=== PATIENT | male | born 1950 | race Caucasian/White ===

== ENCOUNTER 2023-08-10 12:52 | Outpatient (OUT) | payer MEDICARE, MEDICAID, SELFPAY ==
--- NOTE | 2023-08-10 | ECG_ITS ---
[facility] Test Date: 2023-08-10 Pat Name: JAHAIRA ESCAMILLA Department: Room: - Gender: Male [employer]: : 1950 Requested By: ALIZA CHOPRA Order Number: [id number] Reading MD: LAYLA OTTO Measurements Intervals [place] Rate: 68 P: 15 MA: 195 QRS: 52 QRSD: 90 T: 51 QT: 351 QTc: 376 Interpretive Statements SINUS RHYTHM No previous ECG available for comparison Electronically Signed On 08-12-2023 8:05:46 EDT by LAYLA OTTO
--- NOTE | 2023-08-10 13:00 | CA_ITS ---
Patient Name: JAHAIRA ESCAMILLA MR#: [id number] : 1950 Exam Date: 08/10/2023 Ordering Doctor: DR ALIZA CHOPRA D.O. ECHOCARDIOGRAM REPORT PROCEDURE: CA ECHO DOPPLER COMPLETE INDICATIONS: Hypertension, diabetes COMPARISON: None. DESCRIPTION: COMPLETE ECHOCARDIOGRAM Real-time transthoracic echocardiography with 2D, M-mode, spectral and color flow Doppler performed. QUALITY: Technically difficult due to patients condition. LEFT VENTRICLE: Normal chamber size. Mild concentric left ventricular hypertrophy. LV EF: Global left ventricular systolic function is difficult to assess but appears preserved; visually estimated ejection fraction is 55 to 60%. Unable to assess regional wall motion abnormalities. DIASTOLIC: Unable to assess diastolic function. ATRIAL SEPTUM: Inadequately seen. LEFT ATRIUM: Inadequately seen. RIGHT ATRIUM: Inadequately seen. RIGHT VENTRICLE: Inadequately seen. TRICUSPID VALVE: Not well visualized. MITRAL VALVE: Mildly thickened with normal mobility. Mild mitral annular calcification. AORTIC VALVE: Not well visualized. AORTIC ROOT: Appears enlarged. PULMONIC VALVE: Not well visualized. PERICARDIUM: No evidence of pericardial effusion. IVC: Collapses with inspirations. IVC is normal in size. CONCLUSION: 1. This is a suboptimal echocardiographic examination 2. Global left ventricular systolic function is difficult to assess but appears preserved; visually estimated ejection fraction is 55 to 60% Recommend contrast study for better delineation of endocardial borders or other imaging modality as clinically appropriate Adult Echocardiography Procedure Report Left Ventricle LVEDD (3.7 - 5.6 cm): 4.45 cm LVESD (2.2 - 4.0 cm): 2.65 cm LVIVS thickness (0.6 - 1.2 cm): 1.18 cm LVPW thickness (0.5 - 1.0 cm): 1.20 cm LVOT Diameter 2.61 cm Left Atrium Left Atrium Systolic Dimension: 3.70 cm Mitral Valve MV E to A Ratio: 0.57 Mitral Valve A-Wave Peak Velocity: 0.60 m/s Mitral Valve E-Wave Peak Velocity: 0.34 m/s Right Ventricle Aorta AO Root Diam: 4.26 cm Aortic Valve Peak Velocity(Antegrade Flow): 1.15 m/s Peak Gradient(Antegrade Flow): 5.31 mm[Hg] Tricuspid Valve Pulmonic Valve Right Atrium Dictated by: Aneesh Queen M.D. on 08/13/2023 at 15:53 Approved by: Aneesh Queen M.D. on 08/13/2023 at 15:56
== END 2023-08-10 12:53 | disposition home or self-care (01) ==
PROVIDERS: PCP Internal Medicine; Visit Provider Internal Medicine
DX: R06.02 Shortness of breath (principal); I10 Essential (primary) hypertension
CPT/HCPCS: 93005; 93306

== ENCOUNTER 2024-04-09 12:08 | Outpatient (REF) | payer MEDICARE, MEDICAID, SELFPAY ==
--- OUTSIDE RECORDS SUMMARY | 2024-04-09 12:18 | XMS_ITS | CCD ---
Author Organization [facility] [place] Inform ion Partnership [facility] Care Team Providers Care Axle Inspector Name Role Phone Jesus Chopra DO Primary Care Provider MAIN ASCENCIO Attending Unavailable JESUS CHOPRA Primary Care Unavailable MAGDALENO WILSON Admitting Unavailable GEETA COLES Referring Unavailable JESUS POE Consulting Unavailable DIMITRY DICK Consulting Unavailable MILTON JAMES Consulting Unavailable BALAJI ROSS Consulting Unavailable VEGA RYAN Consulting Unavailable LUIS MANUEL BRUMFIELD Consulting Unavailable ALVARO PURCELL Consulting Unavailable SAMY RUSSELL Consulting Unavailable MAGDALENO WILSON Consulting Unavailable NACHO ESPINO Consulting Unavailable HARVEY DOTSON Consulting Unavailable ADRIENNE RAE Consulting Unavailable EDDI MOREAU Consulting Unavaila ble Jesus Chopra DO Primary Care Provider ALEXIS RAMON Attending Unavailable ALEXIS RAMON Admitting Unavailable JESUS CHOPRA Primary Care Unavailable [facility], DR WHITE Attending Unavailable VALONE, DR ABRAMS Primary Care Unavailable [facility] DR WH[facility] Admitting Unavailable MISMalik, DR WHITE Consulting Unavailable HANNAONE, DR ABRAMS Admitting Unavailable VALONE, DR ABRAMS Primary Care Unavailable VALONE, DR ABRAMS Consulting Unavailable KEYSHA, DR ABRAMS Attending Unavailable Dimitry Dick Attending Unavailable Dimitry Dick Admitting Unavailable JESUS CHOPRA JR. Primary Care UnavailELIZABETH Frias Consulting Unavailable NICOLAS CASTORENA Attending Unavailable JESUS CHOPRA JR Primary Care Unavailable JOSEF TAPIA Admitting Unavailable ELIZABETH SIDDIQUI Referring Unavailable ELIZABETH SIDDIQUI Attending Unavailable JESUS CHOPRA JR Primary Care Unavailable Allergies Allergy Classification Reported Allergen(s) Allergy Type Date of Onset Reaction(s) Facility Penicillins (antibiotic) (1 source) Penicillins Drug Allergy 6 [facility] Phone (unformatted) : [phone] Sulfonamides (antibiotic) (1 source) Sulfonamides (Antibiotic) Drug Allergy 1 [facility] Phone: Tetracyclines (antibiotic) (1 source) Oxytetracycline Drug Allergy 6 [facility] Phone: (2 sources) Oxytetracycline; Translations: [OXYTETRACYCLINE] Drug Allergy [facility] Phone: (2 sources) Penicillins; Translations: [PENICILLINS] Propensity to adverse reactions to drug 6 [facility] Phone (unformatted) : [phone] (1 source) Sulfonamides (Antibiotic) Propensity to adverse reactions to drug 1 [facility] Phone: (3 sources) Oxytetracycline; Translations: [Terramycin] Drug Allergy 4 [facility] Repository (1 source) Penicillins Drug allergy (disorder) 4 [facility] Rep[facility] (1 source) Sulfonamides (Antibiotic) Drug allergy (disorder) 4 [facility] Rep[facility] (1 source) Penicillin; Translations: [penicillin] Drug Allergy [facility] Repository (1 source) sulfa topical; Translations: [sulfa topical] Propensity to adverse reactions to drug (disorder) [facility] Repository (1 source) Sulfonamides (Antibiotic); Translations: [SULFA (SULFONAMIDE ANTIBIOTICS)] Propensity to adverse reactions to drug (disorder) 6 [facility] Repository Medications Current Medications Medication Drug Class(es) Dates Sig (Normalized) Sig (Original) acetaminophen 325 mg / HYDROcodone bitartrate 5 mg oral tablet (3 sources) Opioid Agonist Start: 09-04-2020 take 1 tablet by mouth every four hours as needed for pain 1 tablet, Oral, EVERY 4 HOURS PRN, Pain Moderate (4-6), Starting on 09/04/20 at 0510 Maximum dose of acetaminophen is 4000 mg from all sources in 24 hours. Start: 09-02-2020 End: 09-02-2020 take 2 tablets by mouth once 2 tablet, Oral, ONCE, On Kelly 09/02/20 at 2030, For 1 dose Maximum dose of acetaminophen is 4000 mg from all sources in 24 hours. Start: 09-01-2020 End: 09-01-2020 take 1 tablet by mouth once 1 tablet, Oral, ONCE, On W ed 09/01/20 at 2215, For 1 dose Maximum dose of acetaminophen is 4000 mg from all sources in 24 hours. calcium chloride 0.0014 meq/ml / potassium chloride 0.004 meq/ml / sodium chloride 0.103 meq/ml / sodium lactate 0.028 meq/ml injectable solution (1 source) Start: 11-04-2020 lactated ringe rs infusion 1 ml diphenhydrAMINE hydrochloride 50 mg/ml cartridge (1 source) Histamine-1 Receptor Antagonist Start: 09-03-2020 25 mg, Intravenous, EVERY 6 HOURS PRN, Itching, Sleep, Other, allergic reaciton, Starting on Sun09/03/20 at 0222 0.8 ml enoxaparin sodium 150 mg/ml prefilled syringe (3 sources) Low Molecular Weight Heparin Start: 09-06-2020 End: 09-10-2020 Start: 08-30-2020 inject 40 mg by subc utaneous injection twice daily 40 mg, Subcutaneous, 2 TIMES DAILY, First dose (after last modification) on 08/30/20 at 2100 Start: 08-29-2020 End: 08-30-2020 inject 40 mg by subcutaneous injection once daily 40 mg, Subcutaneous, DAILY, First dose on 08/29/20 at 0900 2 ml fentaNYL 0.05 mg/ml injection (2 sources) Opioid Agonist Start: 11-04-2020 fentaNYL (SUBL IMAZE) injection 25 mcg Start: 08-28-2020 End: 08-28-2020 Starting on 08/28/20 at 1 700, For 1 dose DEVIN TIM: cabinet override furosemide 40 mg oral tablet (7 sources) Loop Diuretic Start: 09-05-2020 take 40 mg by mouth once 40 mg, Oral, ONCE, On 09/05/20 at 1515, For 1 dose Start: 08-31-2020 40 mg, Intrave nous, ONCE, On 09/04/20 at 1515, For 1 dose End: 09-02-2020 take 1 tablet by mouth once daily furosemide (LASIX) 20 MG tablet Take 20 mg by mouth See Admin Instructions Daily Sunday through Sunday 60 mg Sat and Sunday 0 Suspended glucagon (rdna) 1 mg injection (1 source) Antihypoglycemic Agent Start: 08-27-2020 take 1 mL intravenously every hour 1 mg, Intramuscular, PRN, Low blood sugar, Blood glucose less than 70 mg/dL and patient NOT ALERT or NPO and does not have IV access., Starting on Sun08/27/20 at 1440 After administration, attempt intravenous access and start D5W at 100 mL/hr. Repeat blood glucose in 15 minutes x2 and notify provider. 150 ml glucose 50 mg/ml injection (3 sources) Start: 08-27-2020 15 g, Oral, PRN, Low blood sugar, Starting on Sun08/27/20 at 1440 If blood glucose less than 50 mg/dL and patient ALERT and TOLERATING PO, give 2 tubes glucose gel. If blood glucose less than 70 mg/dL and patient ALERT and TOLERATING PO, give 1 tube glucose gel. Repeat blood glucose in 15 minutes. If blood glucose is less than 70 mg/dL, repeat treatment and recheck blood glucose in 15 minutes x2 and notify provider. Start: 08-27-2020 12.5 g, Intrav enous, PRN, Low blood sugar, Blood glucose less than 70 mg/dL and patient NOT ALERT or NPO., Starting on Sun08/27/20 at 1440 If patient does not respond within 5 minutes, repeat dose x1. Start D5W at 100 mL/hour until ordering provider can be reached. Repeat blood glucose in 15 minutes. If blood glucose is less than 70 mg/dL, repeat treatment and recheck blood glucose in 15 minutes x2. If using Glucostabilizer, dose as instructed per system. Start: 08-27-2020 100 mL/hr, Int ravenous, at 100 mL/hr, PRN, Low blood sugar, Starting on Sun08/27/20 at 1440 Start infusion following administration of dextrose 50% or glucagon. guaiFENesin 20 mg/ml oral solution (1 source) Start: 08-28-2020 take 200 mg by mouth every four hours as needed for cough 200 mg, Oral, EVERY 4 HOURS PRN, Cough, Starting on 08/28/20 at 0632 0.5 ml HYDROmorphone hydrochloride 1 mg/ml prefilled syringe (1 source) Opioid Agonist Start: 11-04-2020 HYDROmorphone HCl PF (DILAUDID) injection 0.25 mg insulin glargine 100 unt/ml injectable solution (6 sources) Insulin Analog Start: 09-05-2020 inject 50 [IU] by subcutaneous injection twice daily 50 Units, Subcutaneous, 2 TIMES DAILY, First dose (after last modification) on 09/05/20 at 2100 Start: 09-05-2020 inject 20 [IU] by coreas bcutaneous injection once 20 Units, Subcutaneous, ONCE, On 09/05/20 at 1500, For 1 dose Start: 09-04-2020 End: 09-05-2020 inject 30 [IU] by subcutaneous injection twice daily 30 Units, Subcutaneous, 2 TIMES DAILY, First dose (after last modification) on 09/04/20 at 1030 Start: 09-02-2020 End: 09-04-2020 inject 10 [IU] by subcutaneous injection once daily 10 Units, Subcutaneous, NIGHTLY, First dose on Kelly 09/02/20 at 2100 insulin glargine (LANTUS) 100 UNIT/ML injection vial Inject 50 Units into the skin Daily with supper 0 Suspended insulin lispro 100 unt/ml injectable solution (4 sources) Insulin Analog Start: 09-02-2020 0-9 Units, Subcutaneous, NIG HTLY, First dose on Kelly 09/02/20 at 2100 If continuous tube feedings/TPN/NPO, give correction dose based on result, no reduction in dose. If eating or bolus tube feeding: High Dose Corrective Algorithm Glucose: Dose: 70-139 No Insulin 140-199 &nb sp; 2 Units 200-249 3 Units 250-299 5 Units 300-349 6 Units 350-400 7 Units Over 400 9 Units Start: 09-02-2020 0-18 Units, Subcutaneous, 3 TIMES DAILY WITH MEALS, First dose on Kelly 09/02/20 at 1700 High Dose Corrective Algorithm Glucose: Dose: 70-139 No Insulin 140-199 & nbsp; 3 Units 200-249 6 Units 250-299 9 Units 300-349 12 Units 350-400 15 Units Over 400 18 Units Start: 08-27-2020 End: 09-02-2020 0-12 Units, Subcutaneous, 4 TIMES DAILY BEFORE MEALS & NIGHTLY, First dose (after last modification) on [facility] 08/28/20 at 2330 Medium Dose Corrective Algorithm Glucose: Dose: If <139 & nbsp; No Insulin 140-199 2 Units 200-249 4 Units 250-299 6 Units 300-349 8 Units 350-400 10 Units Above 400 12 Units 10 ml lidocaine hydrochloride 10 mg/ml injection (1 source) Antiarrhythmic, Amide Local Anesthetic Start: 11-04-2020 End: 11-04-2020 lidocaine PF 1 % injection 1 mL miconazole nitrate 0.02 mg/mg topical powder (1 source) Azole Antifungal Start: 08-28-2020 apply 1 dose topically twice daily Topical, 2 TIMES DAILY, First dose on Sun08/28/20 at 0900 Apply to skin folds/under breasts. Substituted for Nystatin (MICOSTATIN) powder. 2 ml ondansetron 2 mg/ml injection (1 source) Serotonin-3 Receptor Antagonist Start: 11-04-2020 End: 11-04-2020 ondansetron (ZOFRAN) injection 4 mg polyethylene glycol [id number] [id number] mg powder for oral solution (1 source) Osmotic Laxative Start: 08-27-2020 17 g, Oral, DAILY PRN, Constipation, Starting on Sun08/27/20 at 1253 First line therapy for constipation 3 ml sodium chloride 9 mg/ml injection (11 sources) Start: 11-04-2020 sodium chloride flush 0.9 % injection 10 mL Start: 08-28-2020 End: 08-28-2020 50 mL, Intravenous, at 100 m L/hr, ONCE, On Sun08/28/20 at 1315, For 1 dose Flush line after prothrombin complex concentrate (human) (KCENTRA) infusion. Start: 08-27-2020 End: 08-28-2020 take 1 dose intravenously twice daily 5-40 mL, Intravenous, EVERY 12 HOURS SCHEDULED (2 times per day), First dose on Sun08/27/20 at 2100 For Line Patency: Peripheral IV = 5 mL; Midline or Central Line = 10 mL/lumen. If following IV push medication, administer flush at same rate as the IV push. Flush volume is determined by type of infusion therapy being given. For non-viscous solutions use: Peripheral IV = 5 mL Midline or Central Line = 10 mL/lumen For viscous solutions (i.e. blood components, parenteral nutrition, contrast media, or after obtaining blood sample) use: Peripheral IV = 10 mL Midline or Central Line = 20 mL/lumen Start: 08-27-2020 take 5-40 mL intrave nously once as needed 5-40 mL, Intravenous, PRN, Line Care, After every IV line use, Starting on Sun08/27/20 at 1440 For Line Patency: Peripheral IV = 5 mL; Midline or Central Line = 10 mL/lumen. If following IV push medication, administer flush at same rate as the IV push. Flush volume is determined by type of infusion therapy being given. For non-viscous solutions use: Peripheral IV = 5 mL Midline or Central Line = 10 mL/lumen For viscous solutions (i.e. blood components, parenteral nutrition, contrast media, or after obtaining blood sample) use: Peripheral IV = 10 mL Midline or Central Line = 20 mL/lumen Start: 08-27-2020 End: 08-31-2020 Intravenous, at 240 mL/hr, Administer over 10 Minutes, PRN, blood administration, Starting on 08/28/20 at 1826, For 1 dose For use in priming line prior to transfusion (prime via gravity) and flush line post transfusion ONLY. Discontinue once line has been cleared of remaining blood product. Start: 08-27-2020 End: 08-28-2020 500 mL (2.78 mL/kg), Intrave nous, at 250 mL/hr, Administer over 2 Hours, ONCE, On 08/28/20 at 1400, For 1 dose warfarin sodium 7.5 mg oral tablet (7 sources) Vitamin K Antagonist Start: 09-06-2020 15 mg, Oral, ONCE Warfarin, On 09/06/20 at 1800, For 1 dose Review INR prior to administration. Hold for INR greater than 3.5 and contact physician. Hazardous med- See facility policy for handling/disposal Start: 09-04-2020 10 mg, Oral, O NCE Warfarin, On Sun09/05/20 at 1800, For 1 dose Review INR prior to administration. Hazardous med- See facility policy for handling/disposal End: 11-04-2020 take 2 tablets by mouth every week warfarin (COUMADIN) 5 MG tablet Take 10 mg by mouth once a week Sunday 0 11/04/2020 Discontinued (LIST CLEANUP) (13 sources) Start: 09-04-2020 This patient i s currently receiving daily warfarin. Please check INR's and signs/symptoms of bleeding and bruising as appropriate. Start: 09-01-2020 End: 09-06-2020 Start: 08-28-2020 End: 09-06-2020 1,000 mg, Intravenous, at 33 .3 mL/hr, Administer over 180 Minutes, EVERY 8 HOURS, First dose on Sun08/28/20 at 1500, For 29 doses Start: 08-28-2020 End: 08-29-2020 925 mg (rounded from 920.25 mg = 7.5 mg/kg 122.7 kg Adjusted weight), Intravenous, at 200 mL/hr, Administer over 30 Minutes, DAILY, First dose on Sun08/28/20 at 1445, For 2 doses Start: 08-28-2020 End: 08-28-2020 3,375 mg, Intravenous, EVERY 6 HOURS, First dose (after last modification) on Sun08/28/20 at 1345, Until Discontinued Start: 08-28-2020 End: 08-28-2020 10 mg, Intravenous, at 100 m L/hr, Administer over 60 Minutes, ONCE, On Sun08/28/20 at 1130, For 1 dose Start: 08-27-2020 End: 08-27-2020 1,500 mg (8.33 mg/kg), Intra venous, at 166.7 mL/hr, Administer over 90 Minutes, ONCE, On Sun08/27/20 at 2000, For 1 dose Start: 08-27-2020 End: 08-28-2020 3,375 mg, Intravenous, EVERY 8 HOURS, First dose on Sun08/27/20 at 1400, Until Discontinued Start: 08-27-2020 [Order 1 Start ] Name: potassium chloride (KLOR-CON M) extended release tablet 40 mEq Signed Summary: 40 mEq, Oral, PRN, Potassium Replacement, Starting on Sun08/27/20 at 1253 May give oral solution if patient unable to tolerate tablet. K Lab Replacement Action 3.1-3.5 40 mEq ORAL x 1 &nbs p; 2.7-3.0 Refer to IV replacement orders < 2.7 Refer to IV replacement orders Recheck K level in AM. Not for use in patients with CrCl less than 30 mL/min. [Order 1 End] [Order 2 Start] Name: potassium bicarb-citric acid (EFFER-K) effervescent tablet 40 mEq Signed Summary: 40 mEq, Oral, PRN, Per Potassium Replacement Protocol, Starting on Sun08/27/20 at 1253 Administer as alternative if patient unable to tolerate oral tablet. K Lab &n bsp; Replacement Action 3.1 to 3.5 40 mEq ORAL x 1 Under 3.1 Refer to IV replacement protocol Recheck K level in AM. Protocol not for use in patients with CrCl less than 30 mL/min. Do not chew or crush. Dissolve flavored tablets completely in 3 to 4 ounces of cold water; unflavored tablets may be dissolved in 3 to 4 ounces of cold juice. Patient to sip slowly over a 5 to 10 minute period. May further dilute if GI adverse effects occur. [Order 2 End] [Order 3 Start] Name: potassium chloride 10 mEq/100 mL IVPB (Peripheral Line) Signed Summary: 10 mEq, Intravenous, at 100 mL/hr, PRN, Potassium Replacement, Starting on Sun08/27/20 at 1253 K Lab Replacement Action 2.7-3.0 10 mEq IVPB x 6 doses (60 mEq Total) < 2.7 CALL PHYSICIAN and 10 mEq IVPB x 6 doses (60 mEq Total) Infuse at 10 mEq/hr Repeat Potassium lab 1 hour after final administration. Not for use in patients with CrCl less than 30 mL/min. [Order 3 End] Start: 08-27-2020 [Order 1 Start ] Name: ondansetron (ZOFRAN-ODT) disintegrating tablet 4 mg Signed Summary: 4 mg, Oral, EVERY 8 HOURS PRN, Nausea, Vomiting, Starting on Sun08/27/20 at 1253 [Order 1 End] [Order 2 Start] Name: ondansetron (ZOFRAN) injection 4 mg Signed Summary: 4 mg, Intravenous, EVERY 6 HOURS PRN, Nausea, Vomiting, Starting on Sun08/27/20 at 1253 Administer if oral route cannot be used. [Order 2 End] Start: 08-27-2020 [Order 1 Start ] Name: acetaminophen (TYLENOL) tablet 650 mg Signed Summary: 650 mg, Oral, EVERY 6 HOURS PRN, Pain Mild (1-3), Fever, For temp greater than 100.4 F (38 C), Starting on Sun08/27/20 at 1253 Maximum dose of acetaminophen is 4000 mg from all sources in 24 hours. [Order 1 End] [Order 2 Start] Name: acetaminophen (TYLENOL) suppository 650 mg Signed Summary: 650 mg, Rectal, EVERY 6 HOURS PRN, Pain Mild (1-3), Fever, For temp greater than 100.4 F (38 C), Starting on Sun08/27/20 at 1253 Administer if oral route cannot be used. [Order 2 End] Completed/Discontinued Medications Medication Drug Class(es) Dates Sig (Normalized) Sig (Original) albuterol 0.833 mg/ml / ipratropium bromide 0.167 mg/ml inhalation solution (1 source) Anticholinergic, beta2-Adrenergic Agonist Start: 11-04-2020 End: 11-04-2020 ipratropium-albutero l (DUONEB) 0.5-2.5 (3) MG/3ML nebulizer solution apixaban (1 source) Factor Xa Inhibitor take 1 tablet by mouth twice daily Apixaban (ELIQUIS PO) Take 1 tablet by mouth 2 times daily 0 Suspended ascorbic acid 250 mg oral tablet (2 sources) Vitamin C take 2 tablets by mouth once daily Ascorbic Acid (VITAMIN C) 250 MG tablet Take 500 mg by mouth daily 0 Suspended atorvastatin 20 mg oral tablet (2 sources) HMG-CoA Reductase Inhibitor take 1 tablet by mouth once daily atorvastatin (LIPITOR) 20 MG tablet Take 20 mg by mouth daily 0 Suspended biotin 1 mg oral tablet (2 sources) take 1 tablet by mouth twice daily Biotin 1000 MCG TABS Take 1,000 mcg by mouth 2 times daily 0 Suspended cephalexin 500 mg oral capsule (2 sources) Cephalosporin Antibacterial End: 09-01-2020 take 1 capsule by mouth once daily cephALEXin (KEFLEX) 500 MG capsule Take 500 mg by mouth daily 0 Suspended chlorhexidine gluconate 1.2 mg/ml mouthwash (1 source) Start: 08-28-2020 End: 08-29-2020 take 15 mL by mouth twice daily 15 mL, Mouth/Throat, 2 TIMES DAILY, First dose on 08/28/20 at 2100 For mechanical ventilation care. cholecalciferol 0.125 mg oral tablet (2 sources) Vitamin D take 1 tablet by mouth once daily Cholecalciferol (VITAMIN D3) 125 MCG (5000 UT) TABS Take 1 tablet by mouth daily 0 Suspended DULoxetine 60 mg delayed release oral capsule (2 sources) Serotonin and Norepinephrine Reuptake Inhibitor take 1 capsule by mouth once daily DULoxetine (CYMBALTA) 60 MG extended release capsule Take 60 mg by mouth daily 0 Suspended coagulation factor ix, human 1 unt / coagulation factor x, human 1 unt / factor vii, human 1 unt / protein c, human 1 unt / protein s, human 1 unt / prothrombin, human 1 unt injection (1 source) Anti-coagulant, Blood Coagulation Factor, Human Blood Coagulation Factor Start: End: take 1 dose intravenously once 1,000 Units, Intravenous, at 500 mL/hr, ONCE, On 08/28/20 at 1315, For 1 dose Protect from light. Administer at room temperature at a rate not exceed rate of 8.4 mL/minute. D o not introduce other medications into the same IV line. Do not allow blood to enter into line. Flush entire line following administration. Insulin Regular Human (HUMULIN R IJ) (1 source) Insulin Regular Human (HUMULIN R IJ) Inject 15 Units as directed Daily with lunch 0 Suspended labetalol hydrochloride 5 mg/ml injectable solution (1 source) beta-Adrenergic Dawna Start: End: 5 mg, Intravenous, ONCE, On Sun08/30/20 at 0430, For 1 dose 1 ml LORazepam 2 mg/ml injection (3 sources) Benzodiazepine Start: End: 0.5 mg, Intravenous, ONCE, On Sun09/03/20 at 0245, For 1 dose Start: 08-31-2020 End: 08-31-2020 0.5 mg, Intravenous, ONCE, O n 08/31/20 at 2245, For 1 dose Start: 08-28-2020 0.5 mg, Intrav enous, EVERY 6 HOURS PRN, Anxiety, Withdrawal, Starting on Sun08/28/20 at 0955 losartan potassium 50 mg oral tablet (2 sources) Angiotensin 2 Receptor Dawna take 1 tablet by mouth once daily losartan (COZAAR) 50 MG tablet Take 50 mg by mouth daily 0 Suspended 50 ml magnesium sulfate 40 mg/ml injection (2 sources) Start: 08-28-2020 End: 08-28-2020 2,000 mg, Intravenous, at 25 mL/hr, Administer over 2 Hours, ONCE, On Sun08/28/20 at 1015, For 1 dose Recommended infusion rate not to exceed 1,000 mg (milligrams) per hour. Start: 08-27-2020 take 1000 mg intravenously every hour as needed 1,000 mg, Intravenous, at 100 mL/hr, Adm inister over 1 Hours, PRN, Other, Per IV Magnesium Replacement Protocol, Starting on Sun08/27/20 at 1253 Mg Lab Replacement Action 1.4- 1.6 1 gram IVPB x 2 doses &nb sp; (2 gram Total) 1.0-1.3 1 gram IVPB x 4 doses &nb sp; (4 gram Total) <1.0 CALL PHYSICIAN and &n bsp; 1 gram IVPB x 4 doses (4 gram Total) Infuse at 1 gram/hr Repeat Mag level next AM Protocol not for use in Patients with CrCl<30ml/min metFORMIN hydrochloride 500 mg oral tablet (2 sources) Biguanide take 2 tablets by mouth twice daily at mealtime metFORMIN (GLUCOPHAGE) 500 MG tablet Take 1,000 mg by mouth 2 times daily (with meals) 0 Suspended 2 ml midazolam 1 mg/ml injection (1 source) Benzodiazepine Start: End: Starting on 08/28/20 at 1700, For 1 dose DEVIN TIM: cabinet override Start: 08-28-2020 End: 08-28-2020 Starting on 08/28/20 at 1 700, For 1 dose DEVIN TIM: cabinet override oxyCODONE hydrochloride 5 mg oral tablet (1 source) Opioid Agonist Start: 08-30-2020 End: 08-30-2020 take 5 mg by mouth once 5 mg, Oral, ONCE, On 08/30/20 at 1830, For 1 dose potassium chloride 20 meq extended release oral tablet (1 source) take 20 mEq by mouth three times daily POTASSIUM CHLORIDE PO Take 20 mEq by mouth 3 times daily 0 Suspended 100 ml propofol 10 mg/ml injection (1 source) General Anesthetic Start: 08-28-2020 End: 08-30-2020 5-50 mcg/kg/min 182.1 kg (5.463-54.63 mL/hr, rounded to 5.5-54.6 mL/hr), Intravenous, at 5.5-54.6 mL/hr, TITRATED, Starting on 08/28/20 at 2100 For sedation, titrate to RASS +1 to -1 Dose Range: 5 to 50 mcg/kg/min In itial dose is 10 mcg/kg/min Ma x dose: 50 mcg/kg/min Co ntact physician if max dose does not achieve desired response &nbs p; If RASS 1 point below goal - decrease dose by 5 mcg/kg/min no faster than every 5 min If RASS 2 points below goal - decrease dose by 10 mcg/kg/min no faster than every 5 min If RASS at goal, continue current dose If RASS 1 point above goal - increase dose by 5 mcg/kg/min no faster than every 5 min If RASS 2 or more points above goal - increase dose by 10 mcg/kg/min no faster than every 5 min If after titration dose change patient exhibits adverse hemodynamic response, next titration dose change may be adjusted by one-half of the previous dose change If patient fails sedation interruption, resume propofol titration at 50% of previous dose Do not administer through the same I.V. catheter with blood or plasma. Tubing and any unused portions of propofol vials should be discarded after 12 hours. 1 mg dose 1.5 ml semaglutide 1.34 mg/ml pen injector (2 sources) Semaglutide, 1 MG/DOSE, (OZEMPIC, 1 MG/DOSE,) 2 MG/1.5ML SOPN Inject 0.5 mg into the skin once a week 0 Suspended sucralfate 1000 mg oral tablet (3 sources) Aluminum Complex take 2 tablets by mouth once daily sucralfate (CARAFATE) 1 GM tablet Take 2 g by mouth Daily with supper 0 Suspended traMADol hydrochloride 50 mg oral tablet (1 source) Opioid Agonist Start: 08-30-2020 End: 08-30-2020 take 50 mg by mouth once 50 mg, Oral, ONCE, On Sun08/30/20 at 1200, For 1 dose Start: 08-30-2020 End: 08-30-2020 take 50 mg by mouth once 50 mg, Oral, ONCE, On Sun at 1200, For 1 dose vitamin b12 1 mg/ml injectable solution (2 sources) Vitamin B12 cyanocobalamin 1 000 MCG/ML injection Inject 1,000 mcg into the muscle See Admin Instructions monthly 0 Suspended (1 source) Start: End: 1 2-100 mcg/min (1.875-93.75 mL/hr, rounded to 1.9-93.8 mL/hr), Intravenous, at 1.9-93.8 mL/hr, CONTINUOUS, Starting on Sun08/28/20 at 1345 Titrate to MAP greater than 65 mmHg Dose Range 0.01 to 3.3 mcg/kg/min & nbsp; Initial Dose is 0.05 mcg/kg/min. &nbsp ; Max Dose 3.3 mcg/kg/min Contact physician if max dose does not achieve desired response Tit rate by 0.05 mcg/kg/min no faster than every 5 minutes to goal (1 source) Start: End: 1 take 85 mL intravenously once as needed 85 mL, Intravenous, IMG ONCE PRN, Other, Starting on Sun08/27/20 at 2033, For 1 dose Problems Active Problems Problem Classification Problem Date Documented Da te Episodic/Chronic Acute and unspecified renal failure (1 source) Acute kidney failure, unspecified; Translations: [Acute kidney failure, unspecified] Onset: 03-19-2024 Episodic Biliary tract disease (6 sources) Acute cholangitis ; Translations: [Other cholangitis] Chronic Cardiac dysrhythmias (3 sources) Paroxysmal atrial fibrillation; Translations: [Paroxysmal atrial fibrillation] Onset: 08-22-2019 Chronic Cardiac dysrhythmias (1 source) Tachycardia, unspecified; Translations: [Tachycardia, unspecified] Onset: 03-19-2024 Episodic Coagulation and hemorrhagic disorders (3 sources) Blood coagulation disorder; Translations: [Coagulation defect, unspecified] Chronic Conditions associated with dizziness or vertigo (1 source) Dizziness and giddiness; Translations: [Dizziness and giddiness] Onset: 03-19-2024 Episodic Diabetes mellitus without complication (7 sources) Diabetes mellitus; Translations: [Type 2 diabetes mellitus without complications] Onset: 09-05-2019 Chronic Disorders of lipid metabolism (1 source) Hyperlipidemia, unspecified; Translations: [HYPERLIPIDEMIA UNSPECIFIED] Onset: 01-04-2021 Chronic Essential hypertension (4 sources) Hypertensive disorder; Translations: [Essential (primary) hypertension] Onset: 01-04-2021 Chronic Fluid and electrolyte disorders (1 source) Hypo-osmolality and hyponatremia; Translations: [Hypo-osmolality and hyponatremia] Onset: 03-19-2024 Episodic Other aftercare (3 sources) Long-term current use of anticoagulant; 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] Episodic Other connective tissue disease (3 sources) Panniculitis; Translations: [Panniculitis, unspecified] Onset: 08-27-2020 Episodic Other gastrointestinal disorders (3 sources) Ileostomy present; Translations: [Ileostomy status] Onset: 09-17-2019 Chronic Other liver diseases (3 sources) Elevated liver enzymes level; Translations: [Abnormal levels of other serum enzymes] Onset: 08-27-2020 Episodic Other liver diseases (3 sources) Enzyme level - finding; Translations: [Transaminasemia] Onset: 08-27-2020 Episodic Other lower respiratory disease (1 source) Shortness of breath; Translations: [SHORTNESS OF BREATH] Onset: 01-04-2021 Episodic Other lower respiratory disease (1 source) Other forms of dyspnea; Translations: [OTHER FORMS OF DYSPNEA] Onset: 01-04-2021 Episodic Other nervous system disorders (3 sources) Disorder of brain; Translations: [Encephalopathy, unspecified] Chronic Other nutritional; endocrine; and metabolic disorders (3 sources) Morbid obesity; Translations: [Morbid (severe) obesity due to excess calories] Chronic Other nutritional; endocrine; and metabolic disorders (3 sources) Hypomagnesemia; Translations: [Hypomagnesemia] Onset: 08-27-2020 Chronic Other nutritional; endocrine; and metabolic disorders (3 sources) Severe obesity; Translations: [Morbid (severe) obesity due to excess calories] Chronic Other screening for suspected conditions (not mental disorders or infectious disease) (4 sources) INR raised; Translations: [Abnormal coagulation profile] Onset: 08-27-2020 Episodic Phlebitis; thrombophlebitis and thromboembolism (3 sources) H/O: Deep vein thrombosis; Translations: [Personal history of other venous thrombosis and embolism] Onset: 08-27-2020 Episodic Residual codes; unclassified (1 source) Obstructive sleep apnea syndrome; Translations: [Obstructive sleep apnea (adult) (pediatric)] Chronic Respiratory failure; insufficiency; arrest (adult) (3 sources) Acute respiratory failure; Translations: [Acute respiratory failure with hypoxia] Onset: 09-05-2020 Episodic Septicemia (except in labor) (6 sources) Sepsis; Translations: [Sepsis, unspecified organism] Onset: 08-27-2020 Episodic Unclassified (1 source) Evaluation of Abnormal Diagnostic Test Onset: 03-19-2024 Unclassified (1 source) abnormal labs Onset: 03-19-2024 Past or Other Problems Problem Classification Problem Date Documented Da te Episodic/Chronic Urinary tract infections (7 sources) Urinary tract infectious disease; Translations: [Urinary tract infection, site not specified] Onset: 08-24-2020 Episodic Results Test Name Value Interpretation Reference Range Facility BASIC METABOLIC PANLon 03-26 Anion gap [Moles/Vol] 4 mmol/L Low 5-15 [facility] Comment on above: Performed By: #### C BCA, 2143-6, 37266-4, 3084-1, 75314-5, 2692-2, CMP, THYR #### [facility] ([id number]) [address] [place] [address] Calcium [Mass/Vol] 8.4 mg/dL Low 8.5-10.5 [facility] Comment on above: Performed By: #### C BCA, 3-6, 61971-6, 3084-1, 97095-9, 2692-2, CMP, THYR #### [facility] ([id number]) [address], [address] [place] [address] Chloride [Moles/Vol] 103 mmol/L Normal 98-109 [facility] Comment on above: Performed By: #### C BCA, 3-6, 11790-0, 3084-1, 21079-2, 2692-2, CMP, THYR #### [facility] ([id number]) [address], [address] [place] [address] CO2 [Moles/Vol] 29 mmol/L Normal 22-32 [facility] Comment on above: Performed By: #### C BCA, 2142-6, 82850-8, 3084-1, 05557-3, 2692-2, CMP, THYR #### [facility] ([id number]) [address], [address] [place] [address] Creatinine [Mass/Vol] 1.80 mg/dL High 0.60-1.30 [facility] Comment on above: Result Comment: METH OD TRACEABLE TO IDMS STANDARD Performed By: #### C BCA, 2142-6, 78436-4, 3084-1, 74823-6, 2692-2, CMP, THYR #### [facility] ([id number]) [address], [address] [place] [address] GFR/1.73 sq M.predicted among non-blacks MDRD (S/P/Bld) [Vol rate/Area] 39 mL/min/{1.73_m2} Low >59 [facility] Comment on above: Result Comment: Reported eGFR is based on the CKD-EPI 2020 equation that does not use a race coefficient. Performed By: #### C BCA, 2142-6, 61416-8, 3084-1, 23025-5, 2692-2, CMP, THYR #### [facility] ([id number]) [address], [address] [place] [address] Glucose [Mass/Vol] 168 mg/dL High 65-99 [facility] Comment on above: Performed By: #### C BCA, 2143-6, 25541-9, 3084-1, 13957-7, 2692-2, CMP, THYR #### [facility] ([id number]) [address], [address] [place] [address] Potassium [Moles/Vol] 4.2 mmol/L Normal 3.5-5.0 [facility] Comment on above: Performed By: #### C BCA, 2143-6, 52123-3, 3084-1, 52334-8, 2692-2, CMP, THYR #### [facility] ([id number]) [address], [address] [place] [address] Sodium [Moles/Vol] 136 mmol/L Normal 134-146 [facility] Comment on above: Performed By: #### C BCA, 2143-6, 46265-2, 3084-1, 68402-5, 2692-2, CMP, THYR #### [facility] ([id number]) [address], [address] [place] [address] Urea nitrogen [Mass/Vol] 29 mg/dL High 5-27 [facility] Comment on above: Performed By: #### C BCA, 2143-6, 54583-5, 3084-1, 84497-0, 2692-2, CMP, THYR #### [facility] ([id number]) [address], [address] [place] [address] COMPLETE BLOOD COUNTon 03-26 Erythrocyte distribution width (RBC) [Ratio] 15.7 % High 11.5-15.0 [facility] Comment on above: Performed By: #### C BCA, 2143-6, 14698-8, 3084-1, 67983-1, 2692-2, CMP, THYR #### [facility] ([id number]) [address], [address] [place] [address] Hematocrit (Bld) [Volume fraction] 27.8 % Low 39-49 [facility] Comment on above: Performed By: #### C BCA, 2143-6, 12725-4, 3084-1, 88517-7, 2692-2, CMP, THYR #### [facility] ([id number]) [address], [address] [place] [address] Hemoglobin (Bld) [Mass/Vol] 9.3 g/dL Low 13.0-17.0 [facility] Comment on above: Performed By: #### C BCA, 3-6, 03451-9, 3084-1, 13344-1, 2692-2, CMP, THYR #### [facility] ([id number]) [address], [address] [place] [address] MCH (RBC) [Entitic mass] 29.4 pg Normal 27-34 [facility] Comment on above: Performed By: #### C BCA, 3-6, 06178-3, 3084-1, 70944-3, 2692-2, CMP, THYR #### [facility] ([id number]) [address], [address] [place] [address] MCHC (RBC) [Mass/Vol] 33.4 g/dL Normal 32-36 [facility] Comment on above: Performed By: #### C BCA, 2143-6, 64004-9, 3084-1, 71177-6, 2692-2, CMP, THYR #### [facility] ([id number]) [address], [address] [place] [address] MCV (RBC) [Entitic vol] 88 fL Normal 80-100 [facility] Comment on above: Performed By: #### C BCA, 2143-6, 22345-6, 3084-1, 13579-1, 2692-2, CMP, THYR #### [facility] ([id number]) [address], [address] [place] [address] Platelet mean volume (Bld) [Entitic vol] 7.9 fL Normal 7-12 [facility] Comment on above: Performed By: #### C BCA, 2143-6, 18816-1, 3084-1, 05183-0, 2692-2, CMP, THYR #### [facility] ([id number]) [address], [address] [place] [address] Platelets (Bld) [#/Vol] 182 10*3/uL Normal 150-450 [facility] Comment on above: Performed By: #### C BCA, 3-6, 84208-7, 3084-1, 93998-6, 2692-2, CMP, THYR #### [facility] ([id number]) [address], [address] [place] [address] RBC COUNT 3.16 X10E12/L Low 4.10-5.70 [facility] Comment on above: Performed By: #### C BCA, 2143-6, 43828-8, 3084-1, 60483-6, 2692-2, CMP, THYR #### [facility] ([id number]) [address], [address] [place] [address] WBC (Bld) [#/Vol] 5.5 10*3/uL Normal 4.0-11.0 [facility] Comment on above: Performed By: #### C BCA, 2143-6, 51030-6, 3084-1, 53898-8, 2692-2, CMP, THYR #### [facility] ([id number]) [address] [place] [address] FERRITINon 03-26-2024 Ferritin [Mass/Vol] 123 ng/mL Normal 24-336 [facility] Comment on above: Performed By: #### C ANGELLA, 3-6, 34630-1, 3084-1, 81202-9, 2692-2, CMP, THYR #### [facility] ([id number]) [address], [address] [place] [address] Folate [Mass/Vol]on 03-26-19 25 FOLIC ACID 5.4 ng/mL Low >5.8 [facility] Comment on above: Result Comment: NEW REFERENCE RANGE Performed By: #### C ANGELLA, 2142-6, 81374-4, 3084-1, 08540-7, 2692-2, CMP, THYR #### [facility] ([id number]) [address], [address] [place] [address] Glucose Glucometer (BldC) [M ass/Vol]on 03-26-2024 Glucose [Mass/Vol] 140 mg/dL High 65-99 [facility] Heparin unfractionated Chrom ogenic method Qn (PPP)on 03-26-2024 ANTI XA UFH 0.39 IU/mL Normal 0.30-0.70 [facility] Comment on above: Result Comment: Opti mal time for testing is 6 hrs post dosage This test is specific for monitoring patients on UFH, and is not recommended for use with other Anti-Xa medications. Performed By: #### C ANGELLA, 2142-6, 66804-0, 3084-1, 79375-2, 2692-2, CMP, THYR #### [facility] ([id number]) [address] [place] [address] IRON PROFILEon 03-26-2024 Iron [Mass/Vol] 71 ug/dL Normal 50-212 [facility] Comment on above: Performed By: #### C BCA, 2143-6, 05752-2, 3084-1, 77708-8, 2692-2, CMP, THYR #### [facility] ([id number]) [address], [address] [place] [address] IRON BINDING 224 ug/dL Low 250-425 [facility] Comment on above: Performed By: #### C BCA, 2143-6, 40957-9, 3084-1, 80744-6, 2692-2, CMP, THYR #### [facility] ([id number]) [address], [address] [place] [address] IRON SATURATION 32 % SATURATION Normal 20-50 [facility] Comment on above: Performed By: #### C BCA, 3-6, 58742-4, 3084-1, 36939-6, 2692-2, CMP, THYR #### [facility] ([id number]) [address], [address] [place] [address] MAGNESIUMon 03-26-2024 Magnesium [Mass/Vol] 1.9 mg/dL Normal 1.8-2.6 [facility] Comment on above: Performed By: #### C BCA, 3-6, 06820-4, 3084-1, 78686-9, 2692-2, CMP, THYR #### [facility] ([id number]) [address], [address] [place] [address] PHOSPHORUSon 03-26-2024 Phosphate [Mass/Vol] 3.3 mg/dL Normal 2.4-4.9 [facility] Comment on above: Performed By: #### C BCA, 2143-6, 25382-4, 3084-1, 03756-8, 2692-2, CMP, THYR #### [facility] ([id number]) [address], [address] [place] [address] PROTIME AND INRon 03-26-2024 INR Coag (PPP) [Relative time] 1.0 {INR} Normal 0.8-1.1 [facility] Comment on above: Performed By: #### C BCA, 2143-6, 41424-8, 3084-1, 14320-6, 2692-2, CMP, THYR #### [facility] ([id number]) [address], [address] [place] [address] PT Coag (PPP) [Time] 12.2 s Normal 9.8-13.2 [facility] Comment on above: Performed By: #### C BCA, 2143-6, 93518-5, 3084-1, 15716-8, 2692-2, CMP, THYR #### [facility] ([id number]) [address], [address] [place] [address] VITAMIN B12on 03-26-2024 Cobalamin (Vitamin B12) [Mass/Vol] 562 pg/mL Normal 180-914 [facility] Comment on above: Performed By: #### C BCA, 2143-6, 81243-0, 3084-1, 12390-4, 2692-2, CMP, THYR #### [facility] ([id number]) [address], [address] [place] [address] BASIC METABOLIC PANLon 03-25 Anion gap [Moles/Vol] 7 mmol/L Normal 5-15 [facility] Comment on above: Performed By: #### C BCA, 2143-6, 63834-2, 3084-1, 07445-0, 2692-2, CMP, THYR #### [facility] ([id number]) [address], [address] [place] [address] Calcium [Mass/Vol] 8.5 mg/dL Normal 8.5-10.5 [facility] Comment on above: Performed By: #### C BCA, 2143-6, 04492-8, 3084-1, 35943-2, 2692-2, CMP, THYR #### [facility] ([id number]) [address], [address] [place] [address] Chloride [Moles/Vol] 101 mmol/L Normal 98-109 [facility] Comment on above: Performed By: #### C BCA, 2143-6, 07318-6, 3084-1, 36364-0, 2692-2, CMP, THYR #### [facility] ([id number]) [address], [address] [place] [address] CO2 [Moles/Vol] 26 mmol/L Normal 22-32 [facility] Comment on above: Performed By: #### C BCA, 2143-6, 57810-5, 3084-1, 23865-5, 2692-2, CMP, THYR #### [facility] ([id number]) [address], [address] [place] [address] Creatinine [Mass/Vol] 1.87 mg/dL High 0.60-1.30 [facility] Comment on above: Result Comment: METH OD TRACEABLE TO IDMS STANDARD Performed By: #### C BCA, 2143-6, 20687-2, 3084-1, 77187-7, 2692-2, CMP, THYR #### [facility] ([id number]) [address], [address] [place] [address] GFR/1.73 sq M.predicted among non-blacks MDRD (S/P/Bld) [Vol rate/Area] 38 mL/min/{1.73_m2} Low >59 [facility] Comment on above: Result Comment: Reported eGFR is based on the CKD-EPI 2020 equation that does not use a race coefficient. Performed By: #### C BCA, 2143-6, 72521-0, 3084-1, 53036-1, 2692-2, CMP, THYR #### [facility] ([id number]) [address], [address] [place] [address] Glucose [Mass/Vol] 118 mg/dL High 65-99 [facility] Comment on above: Performed By: #### C BCA, 2143-6, 19823-2, 3084-1, 14127-2, 2692-2, CMP, THYR #### [facility] ([id number]) [address], [address] [place] [address] Potassium [Moles/Vol] 4.2 mmol/L Normal 3.5-5.0 [facility] Comment on above: Performed By: #### C BCA, 2143-6, 57397-2, 3084-1, 15988-3, 2692-2, CMP, THYR #### [facility] ([id number]) [address], [address] [place] [address] Sodium [Moles/Vol] 134 mmol/L Normal 134-146 [facility] Comment on above: Performed By: #### C BCA, 2143-6, 16031-4, 3084-1, 42926-7, 2692-2, CMP, THYR #### [facility] ([id number]) [address], [facility] [address] [place] [address] Urea nitrogen [Mass/Vol] 32 mg/dL High 5-27 [facility] Comment on above: Performed By: #### C BCA, 2143-6, 60994-0, 3084-1, 70607-7, 2692-2, CMP, THYR #### [facility] ([id number]) [address], [address] [place] [address] COMPLETE BLOOD COUNTon 03-25 Erythrocyte distribution width (RBC) [Ratio] 15.8 % High 11.5-15.0 [facility] Comment on above: Performed By: #### C BCA, 2143-6, 41015-8, 3084-1, 85167-9, 2692-2, CMP, THYR #### [facility] ([id number]) [address], [address] [place] [address] Hematocrit (Bld) [Volume fraction] 28.4 % Low 39-49 [facility] Comment on above: Performed By: #### C BCA, 2143-6, 80359-5, 3084-1, 04725-3, 2692-2, CMP, THYR #### [facility] ([id number]) [address], [address] [place] [address] Hemoglobin (Bld) [Mass/Vol] 9.6 g/dL Low 13.0-17.0 [facility] Comment on above: Performed By: #### C BCA, 3-6, 33457-4, 3084-1, 62054-2, 2692-2, CMP, THYR #### [facility] ([id number]) [address], [address] [place] [address] MCH (RBC) [Entitic mass] 30.0 pg Normal 27-34 [facility] Comment on above: Performed By: #### C BCA, 3-6, 49242-4, 3084-1, 85211-5, 2692-2, CMP, THYR #### [facility] ([id number]) [address], [address] [place] [address] MCHC (RBC) [Mass/Vol] 33.8 g/dL Normal 32-36 [facility] Comment on above: Performed By: #### C BCA, 3-6, 08325-2, 3084-1, 12860-5, 2692-2, CMP, THYR #### [facility] ([id number]) [address], [address] [place] [address] MCV (RBC) [Entitic vol] 89 fL Normal 80-100 [facility] Comment on above: Performed By: #### C BCA, 2143-6, 74582-7, 3084-1, 81364-9, 2692-2, CMP, THYR #### [facility] ([id number]) [address], [address] [place] [address] Platelet mean volume (Bld) [Entitic vol] 8.3 fL Normal 7-12 [facility] Comment on above: Performed By: #### C BCA, 2143-6, 08564-0, 3084-1, 71397-4, 2692-2, CMP, THYR #### [facility] ([id number]) [address], [address] [address] Platelets (Bld) [#/Vol] 169 10*3/uL Normal 150-450 [facility] Comment on above: Performed By: #### C BCA, 2143-6, 36270-6, 3084-1, 54982-3, 2692-2, CMP, THYR #### [facility] ([id number]) [address] [address] RBC COUNT 3.20 X10E12/L Low 4.10-5.70 [facility] Comment on above: Performed By: #### C BCA, 2143-6, 93684-2, 3084-1, 99293-6, 2692-2, CMP, THYR #### [facility] ([id number]) [address] [address] WBC (Bld) [#/Vol] 5.8 10*3/uL Normal 4.0-11.0 [facility] Comment on above: Performed By: #### C BCA, 2143-6, 01572-6, 3084-1, 61275-9, 2692-2, CMP, THYR #### [facility] ([id number]) [address], [address] [place] [address] Glucose Glucometer (BldC) [M ass/Vol]on 03-25-2024 Glucose [Mass/Vol] 255 mg/dL High 65-99 [facility] Glucose [Mass/Vol] 169 mg/dL High 65-99 [facility] Glucose [Mass/Vol] 115 mg/dL High 65-99 [facility] HGB A1C (GLYCO-HGB)on 2024 Glucose [Mass/Vol] 177 mg/dL Normal [facility] Comment on above: Performed By: #### C BCA, 3-6, 62765-1, 3084-1, 73639-9, 2692-2, CMP, THYR #### [facility] ([id number]) [address], [address] [place] [address] HbA1c (Bld) [Mass fraction] 7.8 % High 4.4-5.6 [facility] Comment on above: Result Comment: NOTE ADA Guidelines Result HgbA1c Normal : less than 5.7 % Prediabetes : 5.7 % to 6.4 % Diabetes : > 6.4 % Use with caution in patients with abnormal hemoglobin variants as the half-life of red blood cells and in vivo glycation rates are affected. Performed By: #### C BCA, 3-6, 39456-0, 3084-1, 40659-1, 2692-2, CMP, THYR #### [facility] ([id number]) [address], [address] [place] [address] Heparin unfractionated Chrom ogenic method Qn (PPP)on 03-25-2024 ANTI XA UFH 0.42 IU/mL Normal 0.30-0.70 [facility] Comment on above: Result Comment: Opti mal time for testing is 6 hrs post dosage This test is specific for monitoring patients on UFH, and is not recommended for use with other Anti-Xa medications. Performed By: #### C BCA, 3-6, 43705-6, 3084-1, 09458-3, 2692-2, CMP, THYR #### [facility] ([id number]) [address], [address] [place] [address] ANTI XA UFH 0.41 IU/mL Normal 0.30-0.70 [facility] Comment on above: Result Comment: Opti mal time for testing is 6 hrs post dosage This test is specific for monitoring patients on UFH, and is not recommended for use with other Anti-Xa medications. Performed By: #### C BCA, 3-6, 54783-4, 3084-1, 66077-8, 2692-2, CMP, THYR #### [facility] ([id number]) [address], [address] [place] [address] ANTI XA UFH 0.21 IU/mL Low 0.30-0.70 [facility] Comment on above: Result Comment: Opti mal time for testing is 6 hrs post dosage This test is specific for monitoring patients on UFH, and is not recommended for use with other Anti-Xa medications. Performed By: #### C BCA, 2142-6, 17221-1, 3084-1, 35444-4, 2692-2, CMP, THYR #### [facility] ([id number]) [address], [address] [place] [address] MAGNESIUMon 03-25-2024 Magnesium [Mass/Vol] 2.0 mg/dL Normal 1.8-2.6 [facility] Comment on above: Performed By: #### C BCA, 2142-6, 26039-1, 3084-1, 60938-0, 2692-2, CMP, THYR #### [facility] ([id number]) [address], [address] [place] [address] PHOSPHORUSon 03-25-2024 Phosphate [Mass/Vol] 3.1 mg/dL Normal 2.4-4.9 [facility] Comment on above: Performed By: #### C BCA, 3-6, 55010-6, 3084-1, 13954-6, 2692-2, CMP, THYR #### [facility] ([id number]) [address] [place] [address] PROTIME AND INRon 03-25-2024 INR Coag (PPP) [Relative time] 1.0 {INR} Normal 0.8-1.1 [facility] Comment on above: Performed By: #### C BCA, 2143-6, 19187-8, 3084-1, 62748-1, 2692-2, CMP, THYR #### [facility] ([id number]) [address], [address] [place] [address] PT Coag (PPP) [Time] 11.8 s Normal 9.8-13.2 [facility] Comment on above: Performed By: #### C BCA, 2143-6, 24716-4, 3084-1, 89224-7, 2692-2, CMP, THYR #### [facility] ([id number]) [address], [address] [place] [address] BASIC METABOLIC PANLon 03-24 Anion gap [Moles/Vol] 5 mmol/L Normal 5-15 [facility] Comment on above: Performed By: #### C BCA, 2143-6, 08638-6, 3084-1, 16386-6, 2692-2, CMP, THYR #### [facility] ([id number]) [address], [address] [place] [address] Calcium [Mass/Vol] 8.4 mg/dL Low 8.5-10.5 [facility] Comment on above: Performed By: #### C BCA, 2143-6, 67202-7, 3084-1, 55404-0, 2692-2, CMP, THYR #### [facility] ([id number]) [address], [address] [place] [address] Chloride [Moles/Vol] 102 mmol/L Normal 98-109 [facility] Comment on above: Performed By: #### C BCA, 2143-6, 06375-5, 3084-1, 17518-3, 2692-2, CMP, THYR #### [facility] ([id number]) [address], [address] [place] [address] CO2 [Moles/Vol] 29 mmol/L Normal 22-32 [facility] Comment on above: Performed By: #### C BCA, 2143-6, 48875-4, 3084-1, 11689-9, 2692-2, CMP, THYR #### [facility] ([id number]) [address], [address] [place] [address] Creatinine [Mass/Vol] 2.30 mg/dL High 0.60-1.30 [facility] Comment on above: Result Comment: METH OD TRACEABLE TO IDMS STANDARD Performed By: #### C BCA, 3-6, 62931-7, 3084-1, 55052-4, 2692-2, CMP, THYR #### [facility] ([id number]) [address], [address] [place] [address] GFR/1.73 sq M.predicted among non-blacks MDRD (S/P/Bld) [Vol rate/Area] 29 mL/min/{1.73_m2} Low >59 [facility] Comment on above: Result Comment: Reported eGFR is based on the CKD-EPI 2020 equation that does not use a race coefficient. Performed By: #### C BCA, 2143-6, 66398-4, 3084-1, 80227-6, 2692-2, CMP, THYR #### [facility] ([id number]) [address], [address] [place] [address] Glucose [Mass/Vol] 126 mg/dL High 65-99 [facility] Comment on above: Performed By: #### C BCA, 2143-6, 61317-0, 3084-1, 52313-1, 2692-2, CMP, THYR #### [facility] [facility] ([id number]) [address], [address] [place] [address] Potassium [Moles/Vol] 4.0 mmol/L Normal 3.5-5.0 [facility] Comment on above: Performed By: #### C BCA, 2143-6, 55781-5, 3084-1, 82767-6, 2692-2, CMP, THYR #### [facility] ([id number]) [address], [address] [place] [address] Sodium [Moles/Vol] 136 mmol/L Normal 134-146 [facility] Comment on above: Performed By: #### C BCA, 2143-6, 46963-1, 3084-1, 36691-0, 2692-2, CMP, THYR #### [facility] ([id number]) [address], [address] [place] [address] Urea nitrogen [Mass/Vol] 38 mg/dL High 5-27 [facility] Comment on above: Performed By: #### C BCA, 3-6, 44798-5, 3084-1, 07403-8, 2692-2, CMP, THYR #### [facility] ([id number]) [address], [address] [place] [address] COMPLETE BLOOD COUNTon 03-24 Erythrocyte distribution width (RBC) [Ratio] 15.2 % High 11.5-15.0 [facility] Comment on above: Performed By: #### C BCA, 2143-6, 63843-1, 3084-1, 22101-4, 2692-2, CMP, THYR #### [facility] ([id number]) [address], [address] [place] [address] Hematocrit (Bld) [Volume fraction] 27.6 % Low 39-49 [facility] Comment on above: Performed By: #### C BCA, 2143-6, 10277-4, 3084-1, 00782-8, 2692-2, CMP, THYR #### [facility] ([id number]) [address], [address] [place] [address] Hemoglobin (Bld) [Mass/Vol] 9.3 g/dL Low 13.0-17.0 [facility] Comment on above: Performed By: #### C BCA, 3-6, 91966-0, 3084-1, 00746-3, 2692-2, CMP, THYR #### [facility] ([id number]) [address], [facility] [address] [place] [address] MCH (RBC) [Entitic mass] 29.5 pg Normal 27-34 [facility] Comment on above: Performed By: #### C BCA, 3-6, 38748-7, 3084-1, 95959-3, 2692-2, CMP, THYR #### [facility] ([id number]) [address], [address] [place] [address] MCHC (RBC) [Mass/Vol] 33.9 g/dL Normal 32-36 [facility] Comment on above: Performed By: #### C BCA, 3-6, 84128-4, 3084-1, 42619-3, 2692-2, CMP, THYR #### [facility] ([id number]) [address], [address] [place] [address] MCV (RBC) [Entitic vol] 87 fL Normal 80-100 [facility] Comment on above: Performed By: #### C BCA, 2143-6, 28553-6, 3084-1, 38785-5, 2692-2, CMP, THYR #### [facility] ([id number]) [address], [address] [place] [address] Platelet mean volume (Bld) [Entitic vol] 8.0 fL Normal 7-12 [facility] Comment on above: Performed By: #### C BCA, 2143-6, 53403-2, 3084-1, 43140-3, 2692-2, CMP, THYR #### [facility] ([id number]) [address], [address] [place] [address] Platelets (Bld) [#/Vol] 171 10*3/uL Normal 150-450 [facility] Comment on above: Performed By: #### C BCA, 2143-6, 27088-5, 3084-1, 55523-4, 2692-2, CMP, THYR #### [facility] ([id number]) [address], [address] [place] [address] RBC COUNT 3.17 X10E12/L Low 4.10-5.70 [facility] Comment on above: Performed By: #### C BCA, 2143-6, 46573-0, 3084-1, 46256-0, 2692-2, CMP, THYR #### [facility] ([id number]) [address], [address] [place] [address] WBC (Bld) [#/Vol] 6.2 10*3/uL Normal 4.0-11.0 [facility] Comment on above: Performed By: #### C BCA, 2143-6, 65559-0, 3084-1, 69021-5, 2692-2, CMP, THYR #### [facility] ([id number]) [address], [address] [place] [address] Glucose Glucometer (BldC) [M ass/Vol]on 03-24-2024 Glucose [Mass/Vol] 203 mg/dL High 65-99 [facility] Glucose [Mass/Vol] 210 mg/dL High 65-99 [facility] Glucose [Mass/Vol] 174 mg/dL High 65-99 [facility] Glucose [Mass/Vol] 119 mg/dL High 65-99 [facility] Heparin unfractionated Chrom ogenic method Qn (PPP)on 03-24-2024 ANTI XA UFH 0.16 IU/mL Low 0.30-0.70 [facility] Comment on above: Result Comment: Opti mal time for testing is 6 hrs post dosage This test is specific for monitoring patients on UFH, and is not recommended for use with other Anti-Xa medications. Performed By: #### C BCA, 2143-6, 78299-5, 3084-1, 07619-2, 2692-2, CMP, THYR #### [facility] ([id number]) [address], [address] [place] [address] MAGNESIUMon 03-24-2024 Magnesium [Mass/Vol] 1.8 mg/dL Normal 1.8-2.6 [facility] Comment on above: Performed By: #### C BCA, 2142-6, 77369-2, 3084-1, 09646-9, 2692-2, CMP, THYR #### [facility] ([id number]) [address], [address] [place] [address] PHOSPHORUSon 03-24-2024 Phosphate [Mass/Vol] 2.8 mg/dL Normal 2.4-4.9 [facility] Comment on above: Performed By: #### C BCA, 3-6, 22047-6, 3084-1, 61314-9, 2692-2, CMP, THYR #### [facility] ([id number]) [address], [address] [place] [address] PROTIME AND INRon 03-24-2024 INR Coag (PPP) [Relative time] 1.1 {INR} Normal 0.8-1.1 [facility] Comment on above: Performed By: #### C BCA, 2143-6, 27949-8, 3084-1, 81037-5, 2692-2, CMP, THYR #### [facility] ([id number]) [address], [address] [place] [address] PT Coag (PPP) [Time] 12.7 s Normal 9.8-13.2 [facility] Comment on above: Performed By: #### C BCA, 2143-6, 67464-0, 3084-1, 35740-9, 2692-2, CMP, THYR #### [facility] ([id number]) [address], [address] [place] [address] BASIC METABOLIC PANLon 03-23 Anion gap [Moles/Vol] 8 mmol/L Normal 5-15 [facility] Comment on above: Performed By: #### 3 2132-1 #### [facility] ([id number]) [address], [address] [place] [address] Calcium [Mass/Vol] 8.8 mg/dL Normal 8.5-10.5 [facility] Comment on above: Performed By: #### 3 2132-1 #### [facility] ([id number]) [address], [address] [place] [address] Chloride [Moles/Vol] 100 mmol/L Normal 98-109 [facility] Comment on above: Performed By: #### 3 2132-1 #### [facility] ([id number]) [address], [address] [place] [address] CO2 [Moles/Vol] 28 mmol/L Normal 22-32 [facility] Comment on above: Performed By: #### 3 2132-1 #### [facility] ([id number]) [address], [address] [place] [address] Creatinine [Mass/Vol] 2.54 mg/dL High 0.60-1.30 [facility] Comment on above: Result Comment: METH OD TRACEABLE TO IDMS STANDARD Performed By: #### 3 2132-1 #### [facility] ([id number]) [address], [address] [place] [address] GFR/1.73 sq M.predicted among non-blacks MDRD (S/P/Bld) [Vol rate/Area] 26 mL/min/{1.73_m2} Low >59 [facility] Comment on above: Result Comment: Reported eGFR is based on the CKD-EPI 2020 equation that does not use a race coefficient. Performed By: #### 3 2132-1 #### [facility] ([id number]) [address], [address] [place] [address] Glucose [Mass/Vol] 189 mg/dL High 65-99 [facility] Comment on above: Performed By: #### 3 2132-1 #### [facility] ([id number]) [address], [address] [place] [address] Potassium [Moles/Vol] 4.0 mmol/L Normal 3.5-5.0 [facility] Comment on above: Performed By: #### 3 2132-1 #### [facility] ([id number]) [address], [address] [place] [address] Sodium [Moles/Vol] 136 mmol/L Normal 134-146 [facility] Comment on above: Performed By: #### 3 2132-1 #### [facility] ([id number]) [address], [address] [place] [address] Urea nitrogen [Mass/Vol] 43 mg/dL High 5-27 [facility] Comment on above: Performed By: #### 3 2132-1 #### [facility] ([id number]) [address] [address] [place] [address] COMPLETE BLOOD COUNTon 03-23 Erythrocyte distribution width (RBC) [Ratio] 15.8 % High 11.5-15.0 [facility] Comment on above: Performed By: #### 3 2132-1 #### [facility] ([id number]) [address], [address] [place] [address] Hematocrit (Bld) [Volume fraction] 30.8 % Low 39-49 [facility] Comment on above: Performed By: #### 3 2132-1 #### [facility] ([id number]) [address], [address] [place] [address] Hemoglobin (Bld) [Mass/Vol] 10.6 g/dL Low 13.0-17.0 [facility] Comment on above: Performed By: #### 3 2132-1 #### [facility] ([id number]) [address], [address] [place] [address] MCH (RBC) [Entitic mass] 30.1 pg Normal 27-34 [facility] Comment on above: Performed By: #### 3 2132-1 #### [facility] ([id number]) [address], [address] [place] [address] MCHC (RBC) [Mass/Vol] 34.5 g/dL Normal 32-36 [facility] Comment on above: Performed By: #### 3 2132-1 #### [facility] ([id number]) [address], [address] [place] [address] MCV (RBC) [Entitic vol] 87 fL Normal 80-100 [facility] Comment on above: Performed By: #### 3 2132-1 #### [facility] ([id number]) [address], [address] [place] [address] Platelet mean volume (Bld) [Entitic vol] 8.2 fL Normal 7-12 [facility] Comment on above: Performed By: #### 3 2132-1 #### [facility] ([id number]) [address], [address] [place] [address] Platelets (Bld) [#/Vol] 195 10*3/uL Normal 150-450 [facility] Comment on above: Performed By: #### 3 2132- #### [facility] ([id number]) [address], [address] [place] [address] RBC COUNT 3.54 X10E12/L Low 4.10-5.70 [facility] Comment on above: Performed By: #### 3 2132-1 #### [facility] ([id number]) [address], [address] [place] [address] WBC (Bld) [#/Vol] 6.1 10*3/uL Normal 4.0-11.0 [facility] Comment on above: Performed By: #### 3 2132-1 #### [facility] ([id number]) [address], [address] [place] [address] ELECTROLYTESon 03-23-2024 Anion gap [Moles/Vol] 7 mmol/L Normal 5-15 [facility] Comment on above: Performed By: #### C BCA, 2143-6, 66385-2, 3084-1, 39246-7, 2692-2, CMP, THYR #### [facility] ([id number]) [address], [address] [place] [address] Chloride [Moles/Vol] 100 mmol/L Normal 98-109 [facility] Comment on above: Performed By: #### C BCA, 2143-6, 82282-1, 3084-1, 79653-6, 2692-2, CMP, THYR #### [facility] ([id number]) [address], [address] [place] [address] CO2 [Moles/Vol] 28 mmol/L Normal 22-32 [facility] Comment on above: Performed By: #### C BCA, 2143-6, 96616-0, 3084-1, 14618-0, 2692-2, CMP, THYR #### [facility] ([id number]) [address], [address] [place] [address] Potassium [Moles/Vol] 3.9 mmol/L Normal 3.5-5.0 [facility] Comment on above: Performed By: #### C BCA, 2143-6, 95036-6, 3084-1, 51723-8, 2692-2, CMP, THYR #### [facility] ([id number]) [address], [address] [place] [address] Sodium [Moles/Vol] 135 mmol/L Normal 134-146 [facility] Comment on above: Performed By: #### C BCA, 2143-6, 59577-0, 3084-1, 54288-3, 2692-2, CMP, THYR #### [facility] ([id number]) [address], [address] [place] [address] Glucose Glucometer (BldC) [M ass/Vol]on 03-23-2024 Glucose [Mass/Vol] 213 mg/dL High 65-99 [facility] Glucose [Mass/Vol] 204 mg/dL High 65-99 [facility] Glucose [Mass/Vol] 279 mg/dL High 65-99 [facility] Glucose [Mass/Vol] 166 mg/dL High 65-99 [facility] MAGNESIUMon 03-23-2024 Magnesium [Mass/Vol] 2.1 mg/dL Normal 1.8-2.6 [facility] Comment on above: Performed By: #### 3 2132-1 #### [facility] ([id number]) [address], [address] [place] [address] PHOSPHORUSon 03-23-2024 Phosphate [Mass/Vol] 2.7 mg/dL Normal 2.4-4.9 [facility] Comment on above: Performed By: #### 3 2132-1 #### [facility] ([id number]) [address] [place] [address] PROTIME AND INRon 03-23-2024 INR Coag (PPP) [Relative time] 1.2 {INR} High 0.8-1.1 [facility] Comment on above: Performed By: #### 3 2132-1 #### [facility] ([id number]) [address] [place] [address] PT Coag (PPP) [Time] 13.4 s High 9.8-13.2 [facility] Comment on above: Performed By: #### 3 2132-1 #### [facility] ([id number]) [address] [place] [address] BASIC METABOLIC PANLon 03-22 Anion gap [Moles/Vol] 8 mmol/L Normal 5-15 [facility] Comment on above: Performed By: #### 8 9579-7 #### [facility] ([id number]) [address] [place] [address] Calcium [Mass/Vol] 8.9 mg/dL Normal 8.5-10.5 [facility] Comment on above: Performed By: #### 8 9579-7 #### [facility] ([id number]) [address] [place] [address] Chloride [Moles/Vol] 97 mmol/L Low 98-109 [facility] Comment on above: Performed By: #### 8 9579-7 #### [facility] ([id number]) [address] [place] [address] CO2 [Moles/Vol] 29 mmol/L Normal 22-32 [facility] Comment on above: Performed By: #### 8 9579-7 #### [facility] ([id number]) [address] [place] [address] Creatinine [Mass/Vol] 2.86 mg/dL High 0.60-1.30 [facility] Comment on above: Result Comment: METH OD TRACEABLE TO IDMS STANDARD Performed By: #### 8 9579-7 #### [facility] ([id number]) [address] [place] [address] GFR/1.73 sq M.predicted among non-blacks MDRD (S/P/Bld) [Vol rate/Area] 23 mL/min/{1.73_m2} Low >59 [facility] Comment on above: Result Comment: Reported eGFR is based on the CKD-EPI 2020 equation that does not use a race coefficient. Performed By: #### 8 9579-7 #### [facility] ([id number]) [address] [place] [address] Glucose [Mass/Vol] 140 mg/dL High 65-99 [facility] Comment on above: Performed By: #### 8 9579-7 #### [facility] ([id number]) [address] [place] [address] Potassium [Moles/Vol] 4.1 mmol/L Normal 3.5-5.0 [facility] Comment on above: Performed By: #### 8 9579-7 #### [facility] ([id number]) [address] [place] [address] Sodium [Moles/Vol] 134 mmol/L Normal 134-146 [facility] Comment on above: Performed By: #### 8 9579-7 #### [facility] ([id number]) [address] [place] [address] Urea nitrogen [Mass/Vol] 50 mg/dL High 5-27 [facility] Comment on above: Performed By: #### 8 9579-7 #### [facility] ([id number]) [address] [place] [address] COMPLETE BLOOD COUNTon 03-22 Erythrocyte distribution width (RBC) [Ratio] 15.1 % High 11.5-15.0 [facility] Comment on above: Performed By: #### 8 9579-7 #### [facility] ([id number]) [address] [facility] [place] [address] Hematocrit (Bld) [Volume fraction] 32.9 % Low 39-49 [facility] Comment on above: Performed By: #### 8 9579-7 #### [facility] ([id number]) [address] [facility] [place] [address] Hemoglobin (Bld) [Mass/Vol] 11.5 g/dL Low 13.0-17.0 [facility] Comment on above: Performed By: #### 8 9579-7 #### [facility] ([id number]) [address] [facility] [place] [address] MCH (RBC) [Entitic mass] 29.9 pg Normal 27-34 [facility] Comment on above: Performed By: #### 8 9579-7 #### [facility] ([id number]) [address] [facility] [place] [address] MCHC (RBC) [Mass/Vol] 34.8 g/dL Normal 32-36 [facility] Comment on above: Performed By: #### 8 9579-7 #### [facility] ([id number]) [address] [facility] [place] [address] MCV (RBC) [Entitic vol] 86 fL Normal 80-100 [facility] Comment on above: Performed By: #### 8 9579-7 #### [facility] ([id number]) [address] [facility] [place] [address] Platelet mean volume (Bld) [Entitic vol] 8.3 fL Normal 7-12 [facility] Comment on above: Performed By: #### 8 9579-7 #### [facility] ([id number]) [address] [place] [address] Platelets (Bld) [#/Vol] 190 10*3/uL Normal 150-450 [facility] Comment on above: Performed By: #### 8 9579-7 #### [facility] ([id number]) [address] [facility] [address] RBC COUNT 3.83 X10E12/L Low 4.10-5.70 [facility] Comment on above: Performed By: #### 8 9579-7 #### [facility] ([id number]) [address] [place] [address] WBC (Bld) [#/Vol] 6.8 10*3/uL Normal 4.0-11.0 [facility] Comment on above: Performed By: #### 8 9579-7 #### [facility] ([id number]) [address] [place] [address] ELECTROLYTESon 03-22-2024 Anion gap [Moles/Vol] 9 mmol/L Normal 5-15 [facility] Comment on above: Performed By: #### 3 2132-1 #### [facility] ([id number]) [address] [place] [address] Chloride [Moles/Vol] 98 mmol/L Normal 98-109 [facility] Comment on above: Performed By: #### 3 2132-1 #### [facility] ([id number]) [address] [place] [address] CO2 [Moles/Vol] 27 mmol/L Normal 22-32 [facility] Comment on above: Performed By: #### 3 2132-1 #### [facility] ([id number]) [address] [place] [address] Potassium [Moles/Vol] 4.0 mmol/L Normal 3.5-5.0 [facility] Comment on above: Performed By: #### 3 2132-1 #### [facility] ([id number]) [address] [place] [address] Sodium [Moles/Vol] 134 mmol/L Normal 134-146 [facility] Comment on above: Performed By: #### 3 2133-1 #### [facility] ([id number]) [address] [facility] [place] [address] Anion gap [Moles/Vol] 9 mmol/L Normal 5-15 [facility] Comment on above: Performed By: #### 8 9579-7 #### [facility] ([id number]) [address] [place] [address] Chloride [Moles/Vol] 98 mmol/L Normal 98-109 [facility] Comment on above: Performed By: #### 8 9579-7 #### [facility] ([id number]) [address] [place] [address] CO2 [Moles/Vol] 27 mmol/L Normal 22-32 [facility] Comment on above: Performed By: #### 8 9579-7 #### [facility] ([id number]) [address] [place] [address] Potassium [Moles/Vol] 4.1 mmol/L Normal 3.5-5.0 [facility] Comment on above: Performed By: #### 8 9579-7 #### [facility] ([id number]) [address] [place] [address] Sodium [Moles/Vol] 134 mmol/L Normal 134-146 [facility] Comment on above: Performed By: #### 8 9579-7 #### [facility] ([id number]) [address] [place] [address] Glucose Glucometer (BldC) [M ass/Vol]on 03-22-2024 Glucose [Mass/Vol] 253 mg/dL High 65-99 [facility] Glucose [Mass/Vol] 223 mg/dL High 65-99 [facility] Glucose [Mass/Vol] 148 mg/dL High 65-99 [facility] Glucose [Mass/Vol] 147 mg/dL High 65-99 [facility] MAGNESIUMon 03-22-2024 Magnesium [Mass/Vol] 1.8 mg/dL Normal 1.8-2.6 [facility] Comment on above: Performed By: #### 8 9579-7 #### [facility] ([id number]) [address] [place] [address] Magnesium Ionized ISE (Bld) [Moles/Vol]on 03-22-2024 Magnesium [Moles/Vol] 0.67 mmol/L Normal 0.45-0.74 [facility] Comment on above: Result Comment: NEW REFERENCE RANGE Performed By: #### 8 9579-7 #### [facility] ([id number]) [address] [place] [address] PHOSPHORUSon 03-22-2024 Phosphate [Mass/Vol] 3.5 mg/dL Normal 2.4-4.9 [facility] Comment on above: Performed By: #### 8 9579-7 #### [facility] ([id number]) [address] [place] [address] Phosphate [Mass/Vol] 2.2 mg/dL Low 2.4-4.9 [facility] Comment on above: Performed By: #### 8 9579-7 #### [facility] ([id number]) [address] [place] [address] PROTIME AND INRon 03-22-2024 INR Coag (PPP) [Relative time] 2.0 {INR} High 0.8-1.1 [facility] Comment on above: Performed By: #### 8 9579-7 #### [facility] ([id number]) [address] [place] [address] PT Coag (PPP) [Time] 22.6 s High 9.8-13.2 [facility] Comment on above: Performed By: #### 8 9579-7 #### [facility] ([id number]) [address] [place] [address] BASIC METABOLIC PANLon 03-21 Anion gap [Moles/Vol] 7 mmol/L Normal 5-15 [facility] Comment on above: Performed By: #### C BCA, 2143-6, 46214-2, 3084-1, 28024-8, 2692-2, CMP, THYR #### [facility] ([id number]) [address] [place] [address] Calcium [Mass/Vol] 9.4 mg/dL Normal 8.5-10.5 [facility] Comment on above: Performed By: #### C BCA, 2143-6, 08351-9, 3084-1, 67137-9, 2692-2, CMP, THYR #### [facility] ([id number]) [address] [place] [address] Chloride [Moles/Vol] 95 mmol/L Low 98-109 [facility] Comment on above: Performed By: #### C BCA, 2143-6, 23679-4, 3084-1, 84519-0, 2692-2, CMP, THYR #### [facility] ([id number]) [address], [address] [place] [address] CO2 [Moles/Vol] 28 mmol/L Normal 22-32 [facility] Comment on above: Performed By: #### C BCA, 2143-6, 07351-4, 3084-1, 81844-2, 2692-2, CMP, THYR #### [facility] ([id number]) [address], [address] [place] [address] Creatinine [Mass/Vol] 3.50 mg/dL High 0.60-1.30 [facility] Comment on above: Result Comment: METH OD TRACEABLE TO IDMS STANDARD Performed By: #### C BCA, 2143-6, 48384-8, 3084-1, 45665-0, 2692-2, CMP, THYR #### [facility] ([id number]) [address], [address] [address] GFR/1.73 sq M.predicted among non-blacks MDRD (S/P/Bld) [Vol rate/Area] 18 mL/min/{1.73_m2} Low >59 [facility] Comment on above: Result Comment: Reported eGFR is based on the CKD-EPI 2020 equation that does not use a race coefficient. Performed By: #### C BCA, 2143-6, 13815-6, 3084-1, 75744-9, 2692-2, CMP, THYR #### [facility] ([id number]) [address], [address] [address] Glucose [Mass/Vol] 159 mg/dL High 65-99 [facility] Comment on above: Performed By: #### C BCA, 3-6, 29720-3, 3084-1, 55965-8, 2692-2, CMP, THYR #### [facility] ([id number]) [address], [address] [address] Potassium [Moles/Vol] 4.0 mmol/L Normal 3.5-5.0 [facility] Comment on above: Performed By: #### C BCA, 3-6, 32765-8, 3084-1, 89702-9, 2692-2, CMP, THYR #### [facility] ([id number]) [address], [facility] [address] [place] [address] Sodium [Moles/Vol] 130 mmol/L Low 134-146 [facility] Comment on above: Performed By: #### C BCA, 2143-6, 56107-2, 3084-1, 43242-5, 2692-2, CMP, THYR #### [facility] ([id number]) [address], [address] [place] [address] Urea nitrogen [Mass/Vol] 56 mg/dL High 5-27 [facility] Comment on above: Performed By: #### C BCA, 3-6, 03616-1, 3084-1, 88866-1, 2692-2, CMP, THYR #### [facility] ([id number]) [address], [address] [place] [address] COMPLETE BLOOD COUNTon 03-21 Erythrocyte distribution width (RBC) [Ratio] 15.3 % High 11.5-15.0 [facility] Comment on above: Performed By: #### C BCA, 3-6, 56932-9, 3084-1, 12112-3, 2692-2, CMP, THYR #### [facility] ([id number]) [address], [address] [place] [address] Hematocrit (Bld) [Volume fraction] 34.5 % Low 39-49 [facility] Comment on above: Performed By: #### C BCA, 3-6, 88109-7, 3084-1, 20935-5, 2692-2, CMP, THYR #### [facility] ([id number]) [address], [address] [place] [address] Hemoglobin (Bld) [Mass/Vol] 12.1 g/dL Low 13.0-17.0 [facility] Comment on above: Performed By: #### C BCA, 3-6, 83315-1, 3084-1, 35795-1, 2692-2, CMP, THYR #### [facility] ([id number]) [address], [address] [place] [address] MCH (RBC) [Entitic mass] 29.7 pg Normal 27-34 [facility] Comment on above: Performed By: #### C BCA, 3-6, 28085-9, 3084-1, 21514-3, 2692-2, CMP, THYR #### [facility] ([id number]) [address], [address] [place] [address] MCHC (RBC) [Mass/Vol] 35.1 g/dL Normal 32-36 [facility] Comment on above: Performed By: #### C BCA, 2143-6, 03063-4, 3084-1, 53166-6, 2692-2, CMP, THYR #### [facility] ([id number]) [address], [address] [place] [address] MCV (RBC) [Entitic vol] 85 fL Normal 80-100 [facility] Comment on above: Performed By: #### C BCA, 3-6, 04470-7, 3084-1, 45950-3, 2692-2, CMP, THYR #### [facility] ([id number]) [address], [address] [place] [address] Platelet mean volume (Bld) [Entitic vol] 8.1 fL Normal 7-12 [facility] Comment on above: Performed By: #### C BCA, 3-6, 58731-4, 3084-1, 49414-6, 2692-2, CMP, THYR #### [facility] ([id number]) [address], [address] [place] [address] Platelets (Bld) [#/Vol] 211 10*3/uL Normal 150-450 [facility] Comment on above: Performed By: #### C BCA, 2143-6, 48565-4, 3084-1, 59931-2, 2692-2, CMP, THYR #### [facility] ([id number]) [address], [address] [place] [address] RBC COUNT 4.08 X10E12/L Low 4.10-5.70 [facility] Comment on above: Performed By: #### C BCA, 2143-6, 54960-0, 3084-1, 11789-5, 2692-2, CMP, THYR #### [facility] ([id number]) [address], [address] [place] [address] WBC (Bld) [#/Vol] 7.4 10*3/uL Normal 4.0-11.0 [facility] Comment on above: Performed By: #### C BCA, 2143-6, 92965-9, 3084-1, 88774-6, 2692-2, CMP, THYR #### [facility] ([id number]) [address], [address] [place] [address] ELECTROLYTESon 03-21-2024 Anion gap [Moles/Vol] 7 mmol/L Normal 5-15 [facility] Comment on above: Performed By: #### C BCA, 3-6, 25581-4, 3084-1, 80343-8, 2692-2, CMP, THYR #### [facility] ([id number]) [address], [address] [place] [address] Chloride [Moles/Vol] 96 mmol/L Low 98-109 [facility] Comment on above: Performed By: #### C BCA, 3-6, 35911-3, 3084-1, 34931-7, 2692-2, CMP, THYR #### [facility] ([id number]) [address], [address] [place] [address] CO2 [Moles/Vol] 28 mmol/L Normal 22-32 [facility] Comment on above: Performed By: #### C BCA, 2143-6, 24075-1, 3084-1, 23631-0, 2692-2, CMP, THYR #### [facility] ([id number]) [address], [address] [place] [address] Potassium [Moles/Vol] 3.8 mmol/L Normal 3.5-5.0 [facility] Comment on above: Performed By: #### C BCA, 3-6, 38515-9, 3084-1, 32745-9, 2692-2, CMP, THYR #### [facility] ([id number]) [address], [address] [place] [address] Sodium [Moles/Vol] 131 mmol/L Low 134-146 [facility] Comment on above: Performed By: #### C BCA, 2142-6, 97283-0, 3084-1, 03858-6, 2692-2, CMP, THYR #### [facility] ([id number]) [address], [address] [place] [address] Anion gap [Moles/Vol] 9 mmol/L Normal 5-15 [facility] Comment on above: Performed By: #### C BCA, 2142-6, 14314-3, 3084-1, 91004-8, 2692-2, CMP, THYR #### [facility] ([id number]) [address], [address] [place] [address] Chloride [Moles/Vol] 94 mmol/L Low 98-109 [facility] Comment on above: Performed By: #### C BCA, 2142-6, 98602-3, 3084-1, 00520-3, 2692-2, CMP, THYR #### [facility] ([id number]) [address], [address] [place] [address] CO2 [Moles/Vol] 27 mmol/L Normal 22-32 [facility] Comment on above: Performed By: #### C BCA, 3-6, 22309-6, 3084-1, 03847-5, 2692-2, CMP, THYR #### [facility] ([id number]) [address], [address] [place] [address] Potassium [Moles/Vol] 3.7 mmol/L Normal 3.5-5.0 [facility] Comment on above: Performed By: #### C BCA, 2143-6, 19796-6, 3084-1, 15283-5, 2692-2, CMP, THYR #### [facility] ([id number]) [address], [address] [place] [address] Sodium [Moles/Vol] 130 mmol/L Low 134-146 [facility] Comment on above: Performed By: #### C BCA, 3-6, 33461-8, 3084-1, 65886-2, 2692-2, CMP, THYR #### [facility] ([id number]) [address], [address] [place] [address] Anion gap [Moles/Vol] 8 mmol/L Normal 5-15 [facility] Comment on above: Performed By: #### C BCA, 3-6, 83594-8, 3084-1, 71466-1, 2692-2, CMP, THYR #### [facility] ([id number]) [address], [address] [place] [address] Chloride [Moles/Vol] 96 mmol/L Low 98-109 [facility] Comment on above: Performed By: #### C BCA, 3-6, 49306-4, 3084-1, 31812-9, 2692-2, CMP, THYR #### [facility] ([id number]) [address], [address] [place] [address] CO2 [Moles/Vol] 29 mmol/L Normal 22-32 [facility] Comment on above: Performed By: #### C BCA, 2143-6, 67127-2, 3084-1, 09427-4, 2692-2, CMP, THYR #### [facility] ([id number]) [address], [address] [place] [address] Potassium [Moles/Vol] 4.1 mmol/L Normal 3.5-5.0 [facility] Comment on above: Performed By: #### C BCA, 2143-6, 79049-1, 3084-1, 32835-7, 2692-2, CMP, THYR #### [facility] ([id number]) [address], [address] [place] [address] Sodium [Moles/Vol] 133 mmol/L Low 134-146 [facility] Comment on above: Performed By: #### C BCA, 3-6, 07936-5, 3084-1, 95410-3, 2692-2, CMP, THYR #### [facility] ([id number]) [address], [address] [place] [address] Chloride [Moles/Vol] 93 mmol/L Low 98-109 [facility] Comment on above: Performed By: #### C BCA, 3-6, 17159-9, 3084-1, 18665-8, 2692-2, CMP, THYR #### [facility] ([id number]) [address], [address] [place] [address] CO2 [Moles/Vol] 26 mmol/L Normal 22-32 [facility] Comment on above: Performed By: #### C BCA, 3-6, 17838-1, 3084-1, 40814-4, 2692-2, CMP, THYR #### [facility] ([id number]) [address], [address] [place] [address] Potassium [Moles/Vol] 3.7 mmol/L Normal 3.5-5.0 [facility] Comment on above: Performed By: #### C BCA, 2143-6, 66655-9, 3084-1, 62390-0, 2692-2, CMP, THYR #### [facility] ([id number]) [address], [address] [place] [address] Sodium [Moles/Vol] 129 mmol/L Low 134-146 [facility] Comment on above: Performed By: #### C BCA, 3-6, 98848-6, 3084-1, 95823-6, 2692-2, CMP, THYR #### [facility] ([id number]) [address], [address] [place] [address] Glucose Glucometer (BldC) [M ass/Vol]on 03-21-2024 Glucose [Mass/Vol] 150 mg/dL High 65-99 [facility] Glucose [Mass/Vol] 280 mg/dL High 65-99 [facility] Glucose [Mass/Vol] 310 mg/dL High 65-99 [facility] Glucose [Mass/Vol] 167 mg/dL High 65-99 [facility] Glucose [Mass/Vol] 164 mg/dL High 65-99 [facility] Glucose [Mass/Vol] 229 mg/dL High 65-99 [facility] MAGNESIUMon 03-21-2024 Magnesium [Mass/Vol] 2.0 mg/dL Normal 1.8-2.6 [facility] Comment on above: Performed By: #### C BCA, 3-6, 49710-7, 3084-1, 29129-2, 2692-2, CMP, THYR #### [facility] ([id number]) [address] [place] [address] PHOSPHORUSon 03-21-2024 Phosphate [Mass/Vol] 2.5 mg/dL Normal 2.4-4.9 [facility] Comment on above: Performed By: #### C BCA, 3-6, 46079-0, 3084-1, 68877-6, 2692-2, CMP, THYR #### [facility] ([id number]) [address] [place] [address] Phosphate [Mass/Vol] 1.9 mg/dL Low 2.4-4.9 [facility] Comment on above: Performed By: #### C BCA, 2143-6, 33919-9, 3084-1, 73454-2, 2692-2, CMP, THYR #### [facility] ([id number]) [address], [address] [place] [address] PROTIME AND INRon 03-21-2024 INR Coag (PPP) [Relative time] 3.5 {INR} High 0.8-1.1 [facility] Comment on above: Performed By: #### C BCA, 2143-6, 73474-0, 3084-1, 11402-2, 2692-2, CMP, THYR #### [facility] ([id number]) [address], [address] [place] [address] PT Coag (PPP) [Time] 38.7 s High 9.8-13.2 [facility] Comment on above: Performed By: #### C BCA, 2143-6, 12881-3, 3084-1, 27463-5, 2692-2, CMP, THYR #### [facility] ([id number]) [address], [address] [place] [address] US RETROPERITONEAL COMPLETEo n 03-21-2024 US RETROPERITONEAL COMPLETE US RETROPERITONEAL COMPLETE US RETROPERITONEAL COMPLETE: 03/21/2024 6:39 AM Indication: 73 years old Male. acute renal failure. Check renal size. Rule out hydronephrosis.. Comparison: CT abdomen pelvis from 08/13/2022 and renal ultrasound from 01/11/2014 FINDINGS: The right kidney measures 11.0 x 4.2 x 4.2 cm with a 5 mm cortex. No contour deforming lesion, shadowing stones or hydronephrosis. The left kidney measures 10.6 x 4.7 x 5.1 cm with a 5 mm cortex. Previously noted exophytic lesion is not appreciated on this exam. No hydronephrosis or shadowing stones. No contour deforming lesion. Urinary bladder is underdistended with a Lees catheter therefore incompletely evaluated. IMPRESSION: 1. Bilateral renal cortex appears thinned measuring 5 mm. 2. Previously noted 1.7 cm exophytic left renal lesion is not well seen on this exam. Consider follow-up MRI. Finalized by Yelitza Hawkins MD on 03/21/2024 8:07 AM Normal [facility] BASIC METABOLIC PANLon 03-20 Calcium [Mass/Vol] 9.7 mg/dL Normal 8.5-10.5 [facility] Comment on above: Performed By: #### C BCA, 2143-6, 42610-4, 3084-1, 61281-9, 2692-2, CMP, THYR #### [facility] ([id number]) [address], [address] [place] [address] Chloride [Moles/Vol] 91 mmol/L Low 98-109 [facility] Comment on above: Performed By: #### C BCA, 2143-6, 87163-4, 3084-1, 18477-2, 2692-2, CMP, THYR #### [facility] ([id number]) [address], [address] [place] [address] CO2 [Moles/Vol] 21 mmol/L Low 22-32 [facility] Comment on above: Performed By: #### C BCA, 2143-6, 76215-5, 3084-1, 01371-7, 2692-2, CMP, THYR #### [facility] ([id number]) [address], [address] [place] [address] Creatinine [Mass/Vol] 3.95 mg/dL High 0.60-1.30 [facility] Comment on above: Result Comment: METH OD TRACEABLE TO IDMS STANDARD Performed By: #### C BCA, 2143-6, 88947-4, 3084-1, 83412-3, 2692-2, CMP, THYR #### [facility] ([id number]) [address] [address] GFR/1.73 sq M.predicted among non-blacks MDRD (S/P/Bld) [Vol rate/Area] 15 mL/min/{1.73_m2} Low >59 [facility] Comment on above: Result Comment: Reported eGFR is based on the CKD-EPI 2020 equation that does not use a race coefficient. Performed By: #### C BCA, 2143-6, 07278-3, 3084-1, 15806-6, 2692-2, CMP, THYR #### [facility] ([id number]) [address] [address] Glucose [Mass/Vol] 170 mg/dL High 65-99 [facility] Comment on above: Performed By: #### C BCA, 2143-6, 04352-6, 3084-1, 01941-5, 2692-2, CMP, THYR #### [facility] ([id number]) [address] [address] Potassium [Moles/Vol] 3.5 mmol/L Normal 3.5-5.0 [facility] Comment on above: Performed By: #### C BCA, 2143-6, 67697-1, 3084-1, 65667-1, 2692-2, CMP, THYR #### [facility] ([id number]) [address] [address] Urea nitrogen [Mass/Vol] 60 mg/dL High 5-27 [facility] Comment on above: Performed By: #### C BCA, 2143-6, 39951-0, 3084-1, 73935-8, 2692-2, CMP, THYR #### [facility] ([id number]) [address] [address] COMPLETE BLOOD COUNTon 03-20 Erythrocyte distribution width (RBC) [Ratio] 15.0 % Normal 11.5-15.0 [facility] Comment on above: Performed By: #### C BCA, 2143-6, 52236-3, 3084-1, 46511-7, 2692-2, CMP, THYR #### [facility] ([id number]) [address], [address] [place] [address] Hematocrit (Bld) [Volume fraction] 38.1 % Low 39-49 [facility] Comment on above: Performed By: #### C BCA, 2143-6, 44357-6, 3084-1, 99293-4, 2692-2, CMP, THYR #### [facility] ([id number]) [address], [address] [place] [address] Hemoglobin (Bld) [Mass/Vol] 13.2 g/dL Normal 13.0-17.0 [facility] Comment on above: Performed By: #### C BCA, 3-6, 92449-9, 3084-1, 40255-6, 2692-2, CMP, THYR #### [facility] ([id number]) [address], [address] [place] [address] MCH (RBC) [Entitic mass] 29.4 pg Normal 27-34 [facility] Comment on above: Performed By: #### C BCA, 3-6, 06582-3, 3084-1, 15262-5, 2692-2, CMP, THYR #### [facility] ([id number]) [address], [address] [place] [address] MCHC (RBC) [Mass/Vol] 34.5 g/dL Normal 32-36 [facility] Comment on above: Performed By: #### C BCA, 2143-6, 95608-4, 3084-1, 19445-8, 2692-2, CMP, THYR #### [facility] ([id number]) [address], [address] [place] [address] MCV (RBC) [Entitic vol] 85 fL Normal 80-100 [facility] Comment on above: Performed By: #### C BCA, 2143-6, 96922-6, 3084-1, 29582-1, 2692-2, CMP, THYR #### [facility] ([id number]) [address], [address] [address] Platelet mean volume (Bld) [Entitic vol] 8.3 fL Normal 7-12 [facility] Comment on above: Performed By: #### C BCA, 2143-6, 16321-4, 3084-1, 44802-9, 2692-2, CMP, THYR #### [facility] ([id number]) [address] [address] Platelets (Bld) [#/Vol] 237 10*3/uL Normal 150-450 [facility] Comment on above: Performed By: #### C BCA, 3-6, 59598-5, 3084-1, 73847-7, 2692-2, CMP, THYR #### [facility] ([id number]) [address] [address] RBC COUNT 4.48 X10E12/L Normal 4.10-5.70 [facility] Comment on above: Performed By: #### C BCA, 2143-6, 00793-1, 3084-1, 66270-1, 2692-2, CMP, THYR #### [facility] ([id number]) [address] [address] WBC (Bld) [#/Vol] 8.1 10*3/uL Normal 4.0-11.0 [facility] Comment on above: Performed By: #### C BCA, 2143-6, 17852-9, 3084-1, 55217-8, 2692-2, CMP, THYR #### [facility] ([id number]) [address], [address] [place] [address] Calcium.ionized (Bld) [Mass/ Vol]on 03-20-2024 IONIZED CALCIUM 5.2 mg/dL Normal 4.5-5.3 [facility] Comment on above: Performed By: #### C BCA, 2143-6, 59166-2, 3084-1, 98147-8, 2692-2, CMP, THYR #### [facility] ([id number]) [address] [place] [address] ELECTROLYTESon 03-20-2024 Anion gap [Moles/Vol] 10 mmol/L Normal 5-15 [facility] Comment on above: Performed By: #### C BCA, 3-6, 44402-8, 3084-1, 68314-5, 2692-2, CMP, THYR #### [facility] ([id number]) [address] [place] [address] Chloride [Moles/Vol] 92 mmol/L Low 98-109 [facility] Comment on above: Performed By: #### C BCA, 3-6, 75179-1, 3084-1, 56782-1, 2692-2, CMP, THYR #### [facility] ([id number]) [address], [address] [place] [address] CO2 [Moles/Vol] 25 mmol/L Normal 22-32 [facility] Comment on above: Performed By: #### C BCA, 2143-6, 75317-2, 3084-1, 03752-1, 2692-2, CMP, THYR #### [facility] ([id number]) [address], [address] [place] [address] Potassium [Moles/Vol] 3.6 mmol/L Normal 3.5-5.0 [facility] Comment on above: Performed By: #### C BCA, 2143-6, 12475-2, 3084-1, 48485-9, 2692-2, CMP, THYR #### [facility] ([id number]) [address] [place] [address] Sodium [Moles/Vol] 127 mmol/L Low 134-146 [facility] Comment on above: Performed By: #### C BCA, 2143-6, 09515-1, 3084-1, 28767-3, 2692-2, CMP, THYR #### [facility] ([id number]) [address] [place] [address] Anion gap [Moles/Vol] 9 mmol/L Normal 5-15 [facility] Comment on above: Performed By: #### C BCA, 2143-6, 48195-9, 3084-1, 87180-2, 2692-2, CMP, THYR #### [facility] ([id number]) [address], [address] [place] [address] Chloride [Moles/Vol] 91 mmol/L Low 98-109 [facility] Comment on above: Performed By: #### C BCA, 2143-6, 08769-0, 3084-1, 01219-3, 2692-2, CMP, THYR #### [facility] ([id number]) [address], [address] [place] [address] CO2 [Moles/Vol] 25 mmol/L Normal 22-32 [facility] Comment on above: Performed By: #### C BCA, 2143-6, 84607-1, 3084-1, 25196-6, 2692-2, CMP, THYR #### [facility] ([id number]) [address], [address] [place] [address] Potassium [Moles/Vol] 3.4 mmol/L Low 3.5-5.0 [facility] Comment on above: Performed By: #### C BCA, 2143-6, 38225-8, 3084-1, 37392-0, 2692-2, CMP, THYR #### [facility] ([id number]) [address], [address] [place] [address] Sodium [Moles/Vol] 125 mmol/L Low 134-146 [facility] Comment on above: Performed By: #### C BCA, 2143-6, 72574-8, 3084-1, 81267-7, 2692-2, CMP, THYR #### [facility] ([id number]) [address] [place] [address] Anion gap [Moles/Vol] 11 mmol/L Normal 5-15 [facility] Comment on above: Performed By: #### C BCA, 3-6, 89016-0, 3084-1, 20836-9, 2692-2, CMP, THYR #### [facility] ([id number]) [address], [address] [place] [address] Chloride [Moles/Vol] 91 mmol/L Low 98-109 [facility] Comment on above: Performed By: #### C BCA, 2143-6, 99650-5, 3084-1, 76810-8, 2692-2, CMP, THYR #### [facility] ([id number]) [address] [place] [address] CO2 [Moles/Vol] 23 mmol/L Normal 22-32 [facility] Comment on above: Performed By: #### C BCA, 2143-6, 06795-3, 3084-1, 41313-3, 2692-2, CMP, THYR #### [facility] ([id number]) [address] [place] [address] Potassium [Moles/Vol] 3.5 mmol/L Normal 3.5-5.0 [facility] Comment on above: Performed By: #### C BCA, 2143-6, 81963-8, 3084-1, 82550-1, 2692-2, CMP, THYR #### [facility] ([id number]) [address] [place] [address] Sodium [Moles/Vol] 125 mmol/L Low 134-146 [facility] Comment on above: Performed By: #### C BCA, 3-6, 77418-6, 3084-1, 21676-0, 2692-2, CMP, THYR #### [facility] ([id number]) [address] [place] [address] Glucose Glucometer (BldC) [M ass/Vol]on 03-20-2024 Glucose [Mass/Vol] 244 mg/dL High 65-99 [facility] Glucose [Mass/Vol] 244 mg/dL High 65-99 [facility] Glucose [Mass/Vol] 172 mg/dL High 65-99 [facility] MAGNESIUMon 03-20-2024 Magnesium [Mass/Vol] 2.0 mg/dL Normal 1.8-2.6 [facility] Comment on above: Performed By: #### C BCA, 3-6, 12180-6, 3084-1, 15042-1, 2692-2, CMP, THYR #### [facility] ([id number]) [address] [place] [address] PHOSPHORUSon 03-20-2024 Phosphate [Mass/Vol] 2.4 mg/dL Normal 2.4-4.9 [facility] Comment on above: Performed By: #### C BCA, 2143-6, 45517-4, 3084-1, 80325-5, 2692-2, CMP, THYR #### [facility] ([id number]) [address] [place] [address] POTASSIUMon 03-20-2024 Potassium [Moles/Vol] 3.4 mmol/L Low 3.5-5.0 [facility] Comment on above: Performed By: #### C BCA, 2143-6, 28438-3, 3084-1, 07480-2, 2692-2, CMP, THYR #### [facility] ([id number]) [address] [place] [address] PROTIME AND INRon 03-20-2024 INR Coag (PPP) [Relative time] 5.1 {INR} Critically high 0.8-1.1 [facility] Comment on above: Performed By: #### C BCA, 3-6, 92753-1, 3084-1, 76975-3, 2692-2, CMP, THYR #### [facility] ([id number]) [address] [place] [address] PT Coag (PPP) [Time] 56.4 s High 9.8-13.2 [facility] Comment on above: Performed By: #### C BCA, 3-6, 41488-3, 3084-1, 62217-2, 2692-2, CMP, THYR #### [facility] ([id number]) [address], [address] [place] [address] SODIUMon 03-20-2024 Sodium [Moles/Vol] 124 mmol/L Low 134-146 [facility] Comment on above: Performed By: #### C BCA, 3-6, 91117-1, 3084-1, 11253-8, 2692-2, CMP, THYR #### [facility] ([id number]) [address], [address] [place] [address] Sodium [Moles/Vol] 124 mmol/L Low 134-146 [facility] Comment on above: Performed By: #### C BCA, 3-6, 22980-3, 3084-1, 22168-6, 2692-2, CMP, THYR #### [facility] ([id number]) [address], [address] [place] [address] Sodium [Moles/Vol] 122 mmol/L Low 134-146 [facility] Comment on above: Performed By: #### C BCA, 2143-6, 93038-9, 3084-1, 83437-6, 2692-2, CMP, THYR #### [facility] ([id number]) [address], [address] [place] [address] Sodium [Moles/Vol] 121 mmol/L Low 134-146 [facility] Comment on above: Performed By: #### C BCA, 3-6, 66865-4, 3084-1, 83890-6, 2692-2, CMP, THYR #### [facility] ([id number]) [address] [address] BLOOD CULTUREon 03-19-2024 Bacteria identified Aer cx Nom (Bld) CULTURE RESULTS NO GROWTH 5 DAYS Normal [facility] CBC AND AUTO DIFFon 03-19-19 25 ABSOLUTE BASOPHIL 0.0 X10E9/L Normal 0.0-0.2 [facility] Comment on above: Performed By: #### C BCA, 3-6, 14564-9, 3084-1, 85057-5, 2692-2, CMP, THYR #### [facility] ([id number]) [address], [facility] [address] [place] [address] ABSOLUTE NEUTROPHIL 7.8 X10E9/L High 1.5-6.6 [facility] Comment on above: Performed By: #### C BCA, 2143-6, 65569-0, 3084-1, 33600-2, 2692-2, CMP, THYR #### [facility] ([id number]) [address] [address] [place] [address] Basophils/100 WBC (Bld) 0.4 % Normal [facility] Comment on above: Performed By: #### C BCA, 2143-6, 08035-0, 3084-1, 01639-5, 2692-2, CMP, THYR #### [facility] ([id number]) [address], [address] [place] [address] Eosinophils (Bld) [#/Vol] 0.0 10*3/uL Normal 0.0-0.4 [facility] Comment on above: Performed By: #### C BCA, 3-6, 91695-1, 3084-1, 92836-2, 2692-2, CMP, THYR #### [facility] ([id number]) [address], [address] [place] [address] Eosinophils/100 WBC (Bld) 0.2 % Normal [facility] Comment on above: Performed By: #### C BCA, 3-6, 15307-7, 3084-1, 36243-8, 2692-2, CMP, THYR #### [facility] ([id number]) [address], [facility] [address] [place] [address] Erythrocyte distribution width (RBC) [Ratio] 15.3 % High 11.5-15.0 [facility] Comment on above: Performed By: #### C BCA, 3-6, 83801-6, 3084-1, 07149-1, 2692-2, CMP, THYR #### [facility] ([id number]) [address], [address] [place] [address] Hematocrit (Bld) [Volume fraction] 42.3 % Normal 39-49 [facility] Comment on above: Performed By: #### C BCA, 2143-6, 41552-2, 3084-1, 77171-6, 2692-2, CMP, THYR #### [facility] ([id number]) [address], [address] [place] [address] Hemoglobin (Bld) [Mass/Vol] 14.6 g/dL Normal 13.0-17.0 [facility] Comment on above: Performed By: #### C BCA, 3-6, 59959-4, 3084-1, 17866-4, 2692-2, CMP, THYR #### [facility] ([id number]) [address], [facility] [address] [place] [address] Lymphocytes (Bld) [#/Vol] 1.7 10*3/uL Normal 1.0-3.5 [facility] Comment on above: Performed By: #### C BCA, 3-6, 78469-6, 3084-1, 64577-5, 2692-2, CMP, THYR #### [facility] ([id number]) [address], [address] [address] Lymphocytes/100 WBC (Bld) 16.9 % Normal [facility] Comment on above: Performed By: #### C BCA, 3-6, 69254-1, 3084-1, 47092-8, 2692-2, CMP, THYR #### [facility] ([id number]) [address] [address], [address] [address] MCH (RBC) [Entitic mass] 29.2 pg Normal 27-34 [facility] Comment on above: Performed By: #### C BCA, 3-6, 74856-2, 3084-1, 04351-1, 2692-2, CMP, THYR #### [facility] ([id number]) [address] [address] [place] [address] MCHC (RBC) [Mass/Vol] 34.5 g/dL Normal 32-36 [facility] Comment on above: Performed By: #### C BCA, 3-6, 41210-1, 3084-1, 39468-8, 2692-2, CMP, THYR #### [facility] ([id number]) [address], [address] [place] [address] MCV (RBC) [Entitic vol] 85 fL Normal 80-100 [facility] Comment on above: Performed By: #### C BCA, 2143-6, 30843-4, 3084-1, 22595-9, 2692-2, CMP, THYR #### [facility] ([id number]) [address], [address] [place] [address] Monocytes (Bld) [#/Vol] 0.8 10*3/uL Normal 0-0.9 [facility] Comment on above: Performed By: #### C BCA, 2143-6, 49673-9, 3084-1, 71215-5, 2692-2, CMP, THYR #### [facility] ([id number]) [address], [address] [place] [address] Monocytes/100 WBC (Bld) 7.3 % Normal [facility] Comment on above: Performed By: #### C BCA, 2143-6, 45553-4, 3084-1, 87651-1, 2692-2, CMP, THYR #### [facility] ([id number]) [address], [address] [place] [address] Neutrophils/100 WBC (Bld) 75.2 % Normal [facility] Comment on above: Performed By: #### C BCA, 2143-6, 35737-9, 3084-1, 11264-9, 2692-2, CMP, THYR #### [facility] ([id number]) [address], [address] [place] [address] Platelet mean volume (Bld) [Entitic vol] 8.5 fL Normal 7-12 [facility] Comment on above: Performed By: #### C BCA, 2143-6, 88582-5, 3084-1, 18734-2, 2692-2, CMP, THYR #### [facility] ([id number]) [address] [address] Platelets (Bld) [#/Vol] 259 10*3/uL Normal 150-450 [facility] Comment on above: Performed By: #### C BCA, 2143-6, 00909-8, 3084-1, 84454-1, 2692-2, CMP, THYR #### [facility] ([id number]) [address] [address] RBC COUNT 5.01 X10E12/L Normal 4.10-5.70 [facility] Comment on above: Performed By: #### C BCA, 2143-6, 87643-2, 3084-1, 35009-0, 2692-2, CMP, THYR #### [facility] ([id number]) [address] [address] WBC (Bld) [#/Vol] 10.3 10*3/uL Normal 4.0-11.0 [facility] Comment on above: Performed By: #### C BCA, 2143-6, 53572-1, 3084-1, 07534-9, 2692-2, CMP, THYR #### [facility] ([id number]) [address] [address] CK [Catalytic activity/Vol]o n 03-19-2024 CPK 508 U/L High 24-195 [facility] Comment on above: Performed By: #### C BCA, 2143-6, 67941-4, 3084-1, 25498-8, 2692-2, CMP, THYR #### [facility] ([id number]) [address] [address] COMPLEMENT PROFILEon 025 COMPLEMENT C3 156 mg/dL Normal 86-184 [facility] Comment on above: Performed By: #### C BCA, 2143-6, 11970-5, 3084-1, 15240-6, 2692-2, CMP, THYR #### [facility] ([id number]) [address], [address] [place] [address] COMPLEMENT C4 46 mg/dL Normal 16-47 [facility] Comment on above: Performed By: #### C BCA, 2143-6, 31603-5, 3084-1, 33792-2, 2692-2, CMP, THYR #### [facility] ([id number]) [address], [address] [place] [address] COMPREHENSIVE METABOLIC PANE Taco 03-19-2024 Albumin [Mass/Vol] 4.2 g/dL Normal 3.2-5.3 [facility] Comment on above: Performed By: #### C BCA, 2143-6, 41689-6, 3084-1, 55197-0, 2692-2, CMP, THYR #### [facility] ([id number]) [address], [address] [place] [address] ALP [Catalytic activity/Vol] 65 U/L Normal 39-130 [facility] Comment on above: Performed By: #### C BCA, 2143-6, 76340-6, 3084-1, 41502-3, 2692-2, CMP, THYR #### [facility] ([id number]) [address], [address] [place] [address] ALT [Catalytic activity/Vol] 16 U/L Normal 0-40 [facility] Comment on above: Performed By: #### C BCA, 2143-6, 90912-0, 3084-1, 47305-0, 2692-2, CMP, THYR #### [facility] ([id number]) [address], [address] [place] [address] Anion gap [Moles/Vol] 13 mmol/L Normal 5-15 [facility] Comment on above: Performed By: #### C BCA, 2143-6, 44310-5, 3084-1, 48059-8, 2692-2, CMP, THYR #### [facility] ([id number]) [address], [address] [place] [address] AST [Catalytic activity/Vol] 34 U/L Normal 0-41 [facility] Comment on above: Performed By: #### C BCA, 3-6, 82792-6, 3084-1, 45528-6, 2692-2, CMP, THYR #### [facility] ([id number]) [address] [place] [address] Bilirubin [Mass/Vol] 0.5 mg/dL Normal 0.3-1.2 [facility] Comment on above: Performed By: #### C BCA, 3-6, 27173-9, 3084-1, 10283-6, 2692-2, CMP, THYR #### [facility] ([id number]) [address] [place] [address] Calcium [Mass/Vol] 10.1 mg/dL Normal 8.5-10.5 [facility] Comment on above: Performed By: #### C BCA, 3-6, 96385-8, 3084-1, 42614-5, 2692-2, CMP, THYR #### [facility] ([id number]) [address], [address] [place] [address] Chloride [Moles/Vol] 87 mmol/L Low 98-109 [facility] Comment on above: Performed By: #### C BCA, 2143-6, 93642-2, 3084-1, 04644-1, 2692-2, CMP, THYR #### [facility] ([id number]) [address], [address] [place] [address] CO2 [Moles/Vol] 17 mmol/L Low 22-32 [facility] Comment on above: Performed By: #### C BCA, 3-6, 59543-6, 3084-1, 52567-1, 2692-2, CMP, THYR #### [facility] ([id number]) [address], [address] [place] [address] Creatinine [Mass/Vol] 4.00 mg/dL High 0.60-1.30 [facility] Comment on above: Result Comment: METH OD TRACEABLE TO IDMS STANDARD Performed By: #### C BCA, 3-6, 73810-1, 3084-1, 50968-9, 2692-2, CMP, THYR #### [facility] ([id number]) [address], [address] [place] [address] GFR/1.73 sq M.predicted among non-blacks MDRD (S/P/Bld) [Vol rate/Area] 15 mL/min/{1.73_m2} Low >59 [facility] Comment on above: Result Comment: Reported eGFR is based on the CKD-EPI 2020 equation that does not use a race coefficient. Performed By: #### C BCA, 3-6, 07986-5, 3084-1, 47922-5, 2692-2, CMP, THYR #### [facility] ([id number]) [address], [address] [place] [address] Glucose [Mass/Vol] 215 mg/dL High 65-99 [facility] Comment on above: Performed By: #### C BCA, 3-6, 31968-1, 3084-1, 99060-9, 2692-2, CMP, THYR #### [facility] ([id number]) [address], [address] [place] [address] Potassium [Moles/Vol] 2.9 mmol/L Low 3.5-5.0 [facility] Comment on above: Performed By: #### C BCA, 3-6, 77179-3, 3084-1, 13311-9, 2692-2, CMP, THYR #### [facility] ([id number]) [address], [address] [place] [address] Protein [Mass/Vol] 7.2 g/dL Normal 6.0-8.0 [facility] Comment on above: Performed By: #### C BCA, 3-6, 08455-8, 3084-1, 68947-7, 2692-2, CMP, THYR #### [facility] ([id number]) [address], [facility] [address] [place] [address] Sodium [Moles/Vol] 117 mmol/L Critically low 134-146 [facility] Comment on above: Performed By: #### C BCA, 3-6, 53886-7, 3084-1, 00398-7, 2692-2, CMP, THYR #### [facility] ([id number]) [address], [address] [place] [address] Urea nitrogen [Mass/Vol] 61 mg/dL High 5-27 [facility] Comment on above: Performed By: #### C BCA, 3-6, 77777-3, 3084-1, 58389-7, 2692-2, CMP, THYR #### [facility] ([id number]) [address], [address] [place] [address] Chromatin Ab Qlon 03-19-2024 CHROMATIN AB IGG <0.2 Normal <1.0 [facility] Comment on above: Performed By: #### C BCA, 3-6, 56658-0, 3084-1, 17128-7, 2692-2, CMP, THYR #### [facility] ([id number]) [address], [address] [place] [address] Cortisol [Mass/Vol]on 2024 CORTISOL 36.7 ug/dL Normal [facility] Comment on above: Result Comment: Due to the diurnal variation of cortisol levels in normal subjects, all cortisol measurements should be referenced to the time of day of sample collection. AM Cortisol Age>=6 6.7-22.4 ug/dL PM Cortisol Age>=6 <10 ug/dL Performed By: #### C BCA, 2143-6, 56976-6, 3084-1, 63366-3, 2692-2, CMP, THYR #### [facility] ([id number]) [address] [facility], [address] [place] [address] Creatinine (U) [Mass/Vol]on 03-19-2024 URINE CREATININE,RDM 80.93 mg/dL Normal [facility] Comment on above: Performed By: #### C BCA, 2143-6, 09673-2, 3084-1, 46146-5, 2692-2, CMP, THYR #### [facility] ([id number]) [address] [facility], [address] [place] [address] URINE CREATININE,RDM 98.49 mg/dL Normal [facility] Comment on above: Performed By: #### C BCA, 2143-6, 15755-7, 3084-1, 14615-8, 2692-2, CMP, THYR #### [facility] ([id number]) [address], [address] [place] [address] DNA double strand Ab Qn (S)o n 03-19-2024 DOUBLE STRANDED DNA 12 IU/ML High <5 [facility] Comment on above: Result Comment: Interpretation-------- <5 Negative 5-9 Indeterminate >9 Positive Performed By: #### C BCA, 2142-6, 55545-8, 3084-1, 37102-3, 2692-2, CMP, THYR #### [facility] ([id number]) [address], [address] [place] [address] Glomerular basement membrane IgG Qn (S)on 03-19-2024 GBM IgG Ab <0.2 Normal <1.0 [facility] Comment on above: Performed By: #### C BCA, 2142-6, 35480-8, 3084-1, 55104-8, 2692-2, CMP, THYR #### [facility] ([id number]) [address], [address] [place] [address] Glucose Glucometer (BldC) [M ass/Vol]on 03-19-2024 Glucose [Mass/Vol] 221 mg/dL High 65-99 [facility] Lactate (P shea) [Moles/Vol]o n 03-19-2024 Lactate [Moles/Vol] 1.5 mmol/L Normal 0.4-2.0 [facility] Comment on above: Performed By: #### C BCA, 2142-6, 87363-2, 3084-1, 17845-1, 2691-2, CMP, THYR #### [facility] ([id number]) [address] [place] [address] LACTATE W/REFLEX 2.3 mmol/L High 0.4-2.0 [facility] Comment on above: Performed By: #### 3 2132-03 #### [facility] ([id number]) [address] [place] [address] MAGNESIUMon 03-19-2024 Magnesium [Mass/Vol] 2.2 mg/dL Normal 1.8-2.6 [facility] Comment on above: Performed By: #### C BCA, 2142-6, 27808-4, 3084-1, 70526-6, 2692-2, CMP, THYR #### [facility] ([id number]) [address], [address] [place] [address] Myeloperoxidase Ab Qn (S)on 03-19-2024 Myeloperoxidase Ab <0.2 Normal <1.0 [facility] Comment on above: Performed By: #### C BCA, 3-6, 99625-4, 3084-1, 16285-0, 2692-2, CMP, THYR #### [facility] ([id number]) [address], [address] [place] [address] Natriuretic peptide B [Mass/ Vol]on 03-19-2024 Natriuretic peptide B (Bld) [Mass/Vol] 40 pg/mL Normal <100.0 [facility] Comment on above: Performed By: #### C BCA, 2142-6, 50967-7, 3084-1, 89654-0, 2692-2, CMP, THYR #### [facility] ([id number]) [address], [address] [place] [address] Nuclear Ab IA Ql (S)on 03-19 NIKKO Screen w/reflex Positive Abnormal NEG [facility] Comment on above: Result Comment: Testing performed using multiplex flow immunoassay. Eleven different antigens associated with systemic autoimmune diseases (dsDNA,Sm,Sm/DISPLAY DESIGNER OUTSIDE,DISPLAY DESIGNER OUTSIDE,Chromatin, SSA,SSB,Deisy-1,Scl70,Ribo P,Centromere B) are included in this screening test. Performed By: #### C BCA, 3-6, 01857-8, 3084-1, 96232-9, 2692-2, CMP, THYR #### [facility] ([id number]) [address], [address] [place] [address] Osmolality (U) [Osmolality]o n 03-19-2024 URINE OSMOLALITY 234 mOsm/kg H2 Low 300-1300 [facility] Comment on above: Performed By: #### C BCA, 3-6, 89499-8, 3084-1, 50212-7, 2692-2, CMP, THYR #### [facility] ([id number]) [address], [address] [place] [address] URINE OSMOLALITY 275 mOsm/kg H2 Low 300-1300 [facility] Comment on above: Performed By: #### C BCA, 2143-6, 49568-7, 3084-1, 79737-9, 2692-2, CMP, THYR #### [facility] ([id number]) [address], [address] [place] [address] Osmolality [Osmolality]on OSMOLALITY 274 mOsm/kg H2 Low 280-300 [facility] Comment on above: Performed By: #### C BCA, 3-6, 06652-1, 3084-1, 65889-5, 2692-2, CMP, THYR #### [facility] ([id number]) [address], [address] [place] [address] PHOSPHORUSon 03-19-2024 Phosphate [Mass/Vol] 3.1 mg/dL Normal 2.4-4.9 [facility] Comment on above: Result Comment: SPEC IMEN HEMOLYZED, RESULTS INCREASED MODERATELY HEMOLYZED Performed By: #### C BCA, 3-6, 86938-8, 3084-1, 27990-3, 2692-2, CMP, THYR #### [facility] ([id number]) [address], [address] [place] [address] POTASSIUMon 03-19-2024 Potassium [Moles/Vol] 3.7 mmol/L Normal 3.5-5.0 [facility] Comment on above: Performed By: #### C BCA, 2143-6, 40747-3, 3084-1, 47958-7, 2692-2, CMP, THYR #### [facility] ([id number]) [address], [address] [place] [address] PROTEIN CREAT RATIOon 2024 RANDOM URINE PROTEIN 1320 mg/L High <120 [facility] Comment on above: Performed By: #### C BCA, 3-6, 65511-3, 3084-1, 60201-5, 2692-2, CMP, THYR #### [facility] ([id number]) [address], [address] [place] [address] U/PRO/ADMISSIONS SPECIALIST RATIO CALC 1.63 High <0.2 [facility] Comment on above: Result Comment: Neph rotic Syndrome is associated with ratios >3.5 Performed By: #### C BCA, 3-6, 95878-0, 3084-1, 96485-6, 2692-2, CMP, THYR #### [facility] ([id number]) [address], [address] [place] [address] URINE CREATININE,RDM 80.92 mg/dL Normal [facility] Comment on above: Performed By: #### C BCA, 3-6, 93436-1, 3084-1, 87581-9, 2692-2, CMP, THYR #### [facility] ([id number]) [address], [address] [place] [address] PROTIME AND INRon 03-19-2024 INR Coag (PPP) [Relative time] 5.6 {INR} Critically high 0.8-1.1 [facility] Comment on above: Performed By: #### C BCA, 3-6, 85017-0, 3084-1, 39817-5, 2692-2, CMP, THYR #### [facility] ([id number]) [address], [address] [place] [address] PT Coag (PPP) [Time] 61.2 s High 9.8-13.2 [facility] Comment on above: Performed By: #### C BCA, 3-6, 34721-2, 3084-1, 82612-3, 2692-2, CMP, THYR #### [facility] ([id number]) [address], [address] [place] [address] Procalcitonin IA [Mass/Vol]o n 03-19-2024 PROCALCITONIN 0.39 ng/mL High <0.05 [facility] Comment on above: Result Comment: NOTE <0.50 ng/mL - Low risk of severe sepsis and/or septic shock. <2.00 ng/mL - Recommend retesting within 6-24 hours. >2.00 ng/mL - High risk of sepsis and/or septic shock. Performed By: #### C BCA, 2143-6, 25836-9, 3084-1, 28687-2, 2692-2, CMP, THYR #### [facility] ([id number]) [address] [facility] [place] [address] Proteinase 3 Ab Qn (S)on Proteinase 3 IgG Ab <0.2 Normal <1.0 [facility] Comment on above: Performed By: #### C BCA, 3-6, 25166-2, 3084-1, 12626-3, 2692-2, CMP, THYR #### [facility] ([id number]) [address], [address] [place] [address] Ribonucleoprotein extractabl e nuclear IgG Qn (S)on 03-19-2024 DISPLAY DESIGNER OUTSIDE ANTIBODY IGG 0.2 AI Normal <1.0 [facility] Comment on above: Performed By: #### C BCA, 2143-6, 96095-8, 3084-1, 23730-6, 2692-2, CMP, THYR #### [facility] ([id number]) [address] [facility] [place] [address] SERUM PROTEIN ELECTROPHORESI Son 03-19-2024 Albumin [Mass/Vol] 4.2 g/dL Normal 3.4-5.3 [facility] Comment on above: Performed By: #### C BCA, 2143-6, 16730-8, 3084-1, 28646-9, 2692-2, CMP, THYR #### [facility] ([id number]) [address], [address] [place] [address] ALPHA 1 GLOBULIN 0.3 g/dL Normal 0.1-0.4 [facility] Comment on above: Performed By: #### C BCA, 2143-6, 94910-2, 3084-1, 53872-8, 2692-2, CMP, THYR #### [facility] ([id number]) [address], [address] [place] [address] ALPHA 2 GLOBULIN 1.0 g/dL Normal 0.4-1.1 [facility] Comment on above: Performed By: #### C BCA, 3-6, 57335-9, 3084-1, 66638-0, 2692-2, CMP, THYR #### [facility] ([id number]) [address], [address] [place] [address] BETA GLOBULIN 0.8 g/dL Normal 0.5-1.2 [facility] Comment on above: Performed By: #### C BCA, 3-6, 82316-1, 3084-1, 76245-3, 2692-2, CMP, THYR #### [facility] ([id number]) [address], [address] [place] [address] GAMMA GLOBULIN 0.7 g/dL Normal 0.5-1.6 [facility] Comment on above: Performed By: #### C BCA, 2143-6, 02784-1, 3084-1, 11368-9, 2692-2, CMP, THYR #### [facility] ([id number]) [address], [address] [place] [address] PROT. ELECTROPHORESIS INTERP Unremarkable protein distribution, no monoclonal bands. Normal [facility] Comment on above: Performed By: #### C BCA, 2143-6, 94637-7, 3084-1, 69320-1, 2692-2, CMP, THYR #### [facility] ([id number]) [address] [place] [address] Protein [Mass/Vol] 7.1 g/dL Normal 6.0-8.0 [facility] Comment on above: Performed By: #### C BCA, 3-6, 46975-8, 3084-1, 96194-0, 2692-2, CMP, THYR #### [facility] ([id number]) [address] [facility] [place] [address] SODIUMon 03-19-2024 Sodium [Moles/Vol] 119 mmol/L Critically low 134-146 [facility] Comment on above: Performed By: #### C BCA, 3-6, 47617-6, 3084-1, 22716-7, 2692-2, CMP, THYR #### [facility] ([id number]) [address] [facility] [place] [address] Sodium [Moles/Vol] 120 mmol/L Low 134-146 [facility] Comment on above: Performed By: #### C BCA, 3-6, 16793-0, 3084-1, 06936-1, 2692-2, CMP, THYR #### [facility] ([id number]) [address], [address] [place] [address] Sadler extractable nuclear Ab +Ribonucleoprotein extractable nuclear IgG Qn (S)on 03-19-2024 SADLER/DISPLAY DESIGNER OUTSIDE AB IGG <0.2 Normal <1.0 [facility] Comment on above: Performed By: #### C BCA, 2143-6, 48876-3, 3084-1, 77562-3, 2692-2, CMP, THYR #### [facility] ([id number]) [address] [facility] [address] [place] [address] Sadler extractable nuclear Ig G Qn (S)on 03-19-2024 ANTI-SADLER AB IGG <0.2 Normal <1.0 [facility] Comment on above: Performed By: #### C BCA, 3-6, 83243-5, 3084-1, 41773-4, 2692-2, CMP, THYR #### [facility] ([id number]) [address] [facility], [address] [place] [address] Sodium (U) [Moles/Vol]on URINE SODIUM,RANDOM <10 Normal [facility] Comment on above: Performed By: #### C BCA, 2142-6, 64450-0, 3084-1, 40399-6, 2692-2, CMP, THYR #### [facility] ([id number]) [address] [address] URINE SODIUM,RANDOM <10 Normal [facility] Comment on above: Performed By: #### C BCA, 2142-6, 40784-6, 3084-1, 87553-9, 2692-2, CMP, THYR #### [facility] ([id number]) [address] [facility] [address] [place] [address] THYROID PROFILEon 03-19-2024 Free T4 [Mass/Vol] 0.93 ng/dL Normal 0.61-1.60 [facility] Comment on above: Performed By: #### C BCA, 3-6, 07289-3, 3084-1, 96165-1, 2692-2, CMP, THYR #### [facility] ([id number]) [address] [address] [place] [address] TSH 1.63 uIU/mL Normal 0.49-4.67 [facility] Comment on above: Performed By: #### C BCA, 3-6, 93630-6, 3084-1, 62349-8, 2692-2, CMP, THYR #### [facility] ([id number]) [address] [facility] [place] [address] Troponin I.cardiac High sens itivity method [Mass/Vol]on 03-19-2024 1 HOUR TROP I, HIGH SENSITIVITY 46 ng/L High <21 [facility] Comment on above: Result Comment: Elevations of hs-Troponin may be due to causes other than myocardial ischemia. Recommend serial hs-Troponin testing be performed. For the initial evaluation and management of chest pain patients, refer to the algorithms linked below. Emergency Patient: [email or web address] Inpatient: [email or web address] Performed By: #### C BCA, 2143-6, 11072-6, 3084-1, 10571-6, 2692-2, CMP, THYR #### [facility] ([id number]) [address] [facility], [address] [place] [address] TROPONIN I, HIGH SENSITIVITY 46 ng/L High <21 [facility] Comment on above: Result Comment: Elevations of hs-Troponin may be due to causes other than myocardial ischemia. Recommend serial hs-Troponin testing be performed. For the initial evaluation and management of chest pain patients, refer to the algorithms linked below. Emergency Patient: [email or web address] Inpatient: [email or web address] Performed By: #### 8 9579-7 #### [facility] ([id number]) [address] [place] [address] URIC ACIDon 03-19-2024 Urate [Mass/Vol] 8.7 mg/dL High 2.6-7.2 [facility] Comment on above: Performed By: #### C BCA, 2143-6, 57983-5, 3084-1, 60232-8, 2692-2, CMP, THYR #### [facility] ([id number]) [address], [address] [place] [address] URINALYSISon 03-19-2024 Bilirubin Ql (U) Negative Normal NEG [facility] Comment on above: Performed By: #### C BCA, 2143-6, 29843-5, 3084-1, 13165-0, 2692-2, CMP, THYR #### [facility] ([id number]) [address], [address] [place] [address] BLOOD/HGB Large Abnormal NEG [facility] Comment on above: Performed By: #### C BCA, 2143-6, 94675-7, 3084-1, 29944-7, 2692-2, CMP, THYR #### [facility] ([id number]) [address], [address] [place] [address] Color (U) YELLOW Normal YELLOW [facility] Comment on above: Performed By: #### C BCA, 2143-6, 45773-9, 3084-1, 00705-1, 2692-2, CMP, THYR #### [facility] ([id number]) [address], [address] [place] [address] Glucose Ql (U) Negative Normal NEG [facility] Comment on above: Performed By: #### C BCA, 2143-6, 83926-1, 3084-1, 23823-0, 2692-2, CMP, THYR #### [facility] ([id number]) [address], [address] [place] [address] Ketones Ql (U) Negative Normal NEG [facility] Comment on above: Performed By: #### C BCA, 2143-6, 99555-9, 3084-1, 19333-6, 2692-2, CMP, THYR #### [facility] ([id number]) [address], [address] [place] [address] Leukocyte esterase Test strip Ql (U) MODERATE Abnormal NEG [facility] Comment on above: Performed By: #### C BCA, 2143-6, 87953-5, 3084-1, 30592-2, 2692-2, CMP, THYR #### [facility] ([id number]) [address], [address] [place] [address] Nitrite Ql (U) Negative Normal NEG [facility] Comment on above: Performed By: #### C BCA, 3-6, 68090-2, 3084-1, 80001-8, 2692-2, CMP, THYR #### [facility] ([id number]) [address], [address] [place] [address] pH (U) 6.5 [pH] Normal 5.0-8.5 [facility] Comment on above: Performed By: #### C BCA, 3-6, 82123-5, 3084-1, 46251-5, 2692-2, CMP, THYR #### [facility] ([id number]) [address], [address] [place] [address] Protein Ql (U) 100 mg/dL Abnormal NEG [facility] Comment on above: Performed By: #### C BCA, 2143-6, 98810-9, 3084-1, 26472-5, 2692-2, CMP, THYR #### [facility] ([id number]) [address], [address] [place] [address] R.B.CELLS 0 /hpf Normal 0-5 [facility] Comment on above: Performed By: #### C BCA, 2143-6, 77865-2, 3084-1, 30785-7, 2692-2, CMP, THYR #### [facility] ([id number]) [address] [address] Specific gravity (U) [Rel density] 1.010 Normal 1.003-1.035 [facility] Comment on above: Performed By: #### C BCA, 2143-6, 83396-4, 3084-1, 21932-5, 2692-2, CMP, THYR #### [facility] ([id number]) [address] [address] TURBIDITY CLOUDY Abnormal CLEAR [facility] Comment on above: Performed By: #### C BCA, 3-6, 83848-6, 3084-1, 57453-0, 2692-2, CMP, THYR #### [facility] ([id number]) [address] [address] Urinalysis dipstick W Reflex Microscopic panel (U) URINE RECEIVED WITHOUT PRESERVATIVE-DELAYS IN TRANSPORT MAY AFFECT RESULTS.INTERPRET WITH CAUTION AND CLINICAL CORRELATION IS RECOMMENDED. Normal [facility] Comment on above: Performed By: #### C BCA, 3-6, 08384-3, 3084-1, 96656-1, 2692-2, CMP, THYR #### [facility] ([id number]) [address] [address] Urobilinogen Qn (U) 0.2 {Robin'U}/dL Normal <1.1 [facility] Comment on above: Performed By: #### C BCA, 2143-6, 80302-6, 3084-1, 73526-3, 2692-2, CMP, THYR #### [facility] ([id number]) [address] [address] W.B.CELLS 0 /hpf Normal 0-5 [facility] Comment on above: Performed By: #### C BCA, 2143-6, 77268-1, 3084-1, 65900-5, 2692-2, CMP, THYR #### [facility] ([id number]) [address] [place] [address] Amorphous sediment LM Ql (Urine sed) PRESENT Abnormal NONE [facility] Comment on above: Performed By: #### C BCA, 3-6, 46695-6, 3084-1, 14407-8, 2692-2, CMP, THYR #### [facility] ([id number]) [address], [address] [place] [address] Bilirubin Ql (U) Negative Normal NEG [facility] Comment on above: Performed By: #### C BCA, 2142-6, 42717-7, 3084-1, 79024-6, 2692-2, CMP, THYR #### [facility] ([id number]) [address], [address] [place] [address] BLOOD/HGB MODERATE Abnormal NEG [facility] Comment on above: Performed By: #### C BCA, 2142-6, 95750-5, 3084-1, 88226-3, 2692-2, CMP, THYR #### [facility] ([id number]) [address], [address] [place] [address] CA OXALATE CRYSTALS PRESENT Abnormal NONE [facility] Comment on above: Performed By: #### C BCA, 3-6, 11271-7, 3084-1, 00902-5, 2692-2, CMP, THYR #### [facility] ([id number]) [address], [address] [place] [address] Color (U) YELLOW Normal YELLOW [facility] Comment on above: Performed By: #### C BCA, 3-6, 04549-4, 3084-1, 71226-4, 2692-2, CMP, THYR #### [facility] ([id number]) [address], [address] [place] [address] Glucose Ql (U) Negative Normal NEG [facility] Comment on above: Performed By: #### C BCA, 2143-6, 36230-8, 3084-1, 24159-1, 2692-2, CMP, THYR #### [facility] ([id number]) [address], [address] [place] [address] Hyaline casts LM Ql (Urine sed) 1 /lpf Normal 0-2 [facility] Comment on above: Performed By: #### C BCA, 2143-6, 75787-0, 3084-1, 23648-1, 2692-2, CMP, THYR #### [facility] ([id number]) [address], [address] [place] [address] Ketones Ql (U) Negative Normal NEG [facility] Comment on above: Performed By: #### C BCA, 2143-6, 91038-6, 3084-1, 24007-2, 2692-2, CMP, THYR #### [facility] ([id number]) [address], [address] [place] [address] Leukocyte esterase Test strip Ql (U) Large Abnormal NEG [facility] Comment on above: Performed By: #### C BCA, 2143-6, 97016-5, 3084-1, 78821-6, 2692-2, CMP, THYR #### [facility] ([id number]) [address], [address] [place] [address] Nitrite Ql (U) Negative Normal NEG [facility] Comment on above: Performed By: #### C BCA, 2143-6, 48666-9, 3084-1, 97856-1, 2692-2, CMP, THYR #### [facility] ([id number]) [address], [address] [place] [address] pH (U) 6.0 [pH] Normal 5.0-8.5 [facility] Comment on above: Performed By: #### C BCA, 2143-6, 92879-9, 3084-1, 06396-1, 2692-2, CMP, THYR #### [facility] ([id number]) [address] [address] [place] [address] Protein Ql (U) 50 mg/dL Abnormal NEG [facility] Comment on above: Performed By: #### C BCA, 2143-6, 56105-2, 3084-1, 08415-4, 2692-2, CMP, THYR #### [facility] ([id number]) [address] [address] R.B.CELLS 5 /hpf Normal 0-5 [facility] Comment on above: Performed By: #### C BCA, 2143-6, 24111-3, 3084-1, 30803-9, 2692-2, CMP, THYR #### [facility] ([id number]) [address] [address] [place] [address] Specific gravity (U) [Rel density] 1.011 Normal 1.003-1.035 [facility] Comment on above: Performed By: #### C BCA, 2143-6, 29095-1, 3084-1, 50551-6, 2692-2, CMP, THYR #### [facility] ([id number]) [address] [address] TURBIDITY HAZY Abnormal CLEAR [facility] Comment on above: Performed By: #### C BCA, 2143-6, 31217-7, 3084-1, 62702-1, 2692-2, CMP, THYR #### [facility] ([id number]) [address], [address] [place] [address] Urinalysis dipstick W Reflex Microscopic panel (U) URINE RECEIVED WITHOUT PRESERVATIVE-DELAYS IN TRANSPORT MAY AFFECT RESULTS.INTERPRET WITH CAUTION AND CLINICAL CORRELATION IS RECOMMENDED. Normal [facility] Comment on above: Performed By: #### C BCA, 2143-6, 11186-1, 3084-1, 56229-3, 2692-2, CMP, THYR #### [facility] ([id number]) [address], [address] [place] [address] Urobilinogen (U) [Mass/Vol] mg/dL Normal <1.1 [facility] Comment on above: Performed By: #### C BCA, 3-6, 25369-8, 3084-1, 41445-6, 2692-2, CMP, THYR #### [facility] ([id number]) [address], [address] [address] W.B.CELLS 29 /hpf High 0-5 [facility] Comment on above: Performed By: #### C BCA, 3-6, 91195-0, 3084-1, 88434-9, 2692-2, CMP, THYR #### [facility] ([id number]) [address], [address] [address] URINE CULTUREon 03-19-2024 Bacteria identified Cx Nom (U) CULTURE RESULTS MULTIPLE SPECIES PRESENT. PROBABLE COLLECTION CONTAMINATION. SUGGEST REPEAT SPECIMEN. Normal [facility] Comment on above: Performed By: #### C BCA, 2143-6, 61345-6, 3084-1, 49594-5, 2692-2, CMP, THYR #### [facility] ([id number]) [address], [address] [place] [address] VENOUS BLOOD GASon SKYLER'S TEST Normal [facility] Comment on above: Performed By: #### C BCA, 2143-6, 74781-1, 3084-1, 38484-8, 2692-2, CMP, THYR #### [facility] ([id number]) [address], [address] [place] [address] BASE,DEFICIT 9.0 MMOL/L High 0.0-2.0 [facility] Comment on above: Performed By: #### C BCA, 2143-6, 67788-5, 3084-1, 13827-6, 2692-2, CMP, THYR #### [facility] ([id number]) [address], [address] [place] [address] Body temperature 98.6 [degF] Normal 37.0 [facility] Comment on above: Performed By: #### C BCA, 3-6, 90826-2, 3084-1, 06825-9, 2692-2, CMP, THYR #### [facility] ([id number]) [address], [address] [place] [address] HCO3 (Bld) [Moles/Vol] 17.9 mmol/L Low 20.0-24.0 [facility] Comment on above: Performed By: #### C BCA, 3-6, 83294-5, 3084-1, 78164-0, 2692-2, CMP, THYR #### [facility] ([id number]) [address], [address] [place] [address] INSP. O2 CONC. 21 % Normal [facility] Comment on above: Performed By: #### C BCA, 2143-6, 48976-0, 3084-1, 44400-7, 2692-2, CMP, THYR #### [facility] ([id number]) [address], [address] [place] [address] Oxygen saturation in Blood 26.0 % Low >80.0 [facility] Comment on above: Performed By: #### C BCA, 2143-6, 44749-3, 3084-1, 83826-7, 2692-2, CMP, THYR #### [facility] ([id number]) [address], [address] [place] [address] OXYGEN SOURCE RoomAir Normal [facility] Comment on above: Performed By: #### C BCA, 2143-6, 28091-4, 3084-1, 88012-1, 2692-2, CMP, THYR #### [facility] ([id number]) [address], [address] [place] [address] PCO2, VENOUS 42.1 MMHG Normal 35-50 [facility] Comment on above: Performed By: #### C BCA, 2143-6, 61779-7, 3084-1, 09933-9, 2692-2, CMP, THYR #### [facility] ([id number]) [address], [address] [place] [address] PH, VENOUS 7.237 Low 7.320-7.420 [facility] Comment on above: Performed By: #### C BCA, 2143-6, 25364-8, 3084-1, 37242-7, 2692-2, CMP, THYR #### [facility] ([id number]) [address], [address] [place] [address] PO2, VENOUS 21 MMHG Low 30-50 [facility] Comment on above: Performed By: #### C BCA, 2143-6, 22248-2, 3084-1, 14382-8, 2692-2, CMP, THYR #### [facility] ([id number]) [address], [address] [place] [address] SAMPLE SITE N/A Normal [facility] Comment on above: Performed By: #### C BCA, 2143-6, 25310-7, 3084-1, 28911-4, 2692-2, CMP, THYR #### [facility] ([id number]) [address] [facility] [place] [address] SAMPLE TYPE VENOUS Normal [facility] Comment on above: Performed By: #### C ANGELLA, 2143-6, 73688-4, 3084-1, 44042-2, 2692-2, CMP, THYR #### [facility] ([id number]) [address] [facility] [place] [address] aPTT Coag (PPP) [Time]on aPTT Coag (Bld) [Time] 67 s High 26-37 [facility] Comment on above: Performed By: #### C ANGELLA, 2143-6, 01297-4, 3084-1, 60112-4, 2692-2, CMP, THYR #### [facility] ([id number]) [address] [facility] [facility] [place] [address] Coding Summaryon 05-09-2023 Coding Summary HTMLBase 64 LkotbvhpNSd2vYk+PGhlYW Q+GX4ZIGEzD32oaXVnuM2z V5SDEXaCGuqnIPVPHTfIAp EejrXsJC0jnQAkFLHi IC8+CV0fVOXlBzirzIHeb0 R3nJI0B07zch9oOEhgnIT8 SWNrIhEyghvrl0okjEj7QK cuNmluOyBt FSHsdQ92VIU7yM76Qk61wC BegXQmq9eepDs3OtXoXBJm RLO5bYepXAoat1FrZUZoI3 9akSAye9Q0 TMVgbPgphPKuPlVgnES0fD 5sKQvezaxfh2vfssaiCjk0 tx52iOEhr0F7vZV4R2Scqf X6ONRjgZJf PvrxdVCRrP7gyiuwi4ndzh urQfTcMRXgUVy9PYi1DFXw vAfuFkBsBI77XRU9TMMgpo XdD2HtYQGa sFbcIlP9u0X2Jh7DK4XENr ngE7LGPNEZHVsevVJ+PC90 xw37B7AbReceCtl3VWCdPH C8fVJ3yD3d XBAsGIqnx9K1xDE3Q6Auqu Gude9sy6opRNXkHTfqU62e cMEab9Q8EXTcmRJ2KQFanX ipAfGjqZ38 Oyc+EJGywSojm1PbCeqxp5 xkg8ymwCl0VhnhKLIhmnBv qHikPCP1q7TvJz6aVLXsxO J2hTK4jI7x CpZlQeH5TDqdU428QiHuqW KhBpspC37sB1YzdEW+PHRy Vae1WLKhcKviOQ7yS5JlLF RpbmctbGVm kUdfUE2hWPLpclnpJNKrjZ 1qRVAbL1l4AgTgHpR7WAhs Y3DsPZJtpijuBy28dO6hVr QpWaD5OZlt M8WeetY9UECzkHVjLMzoWP N8Z62yh2N2OBEhDALsLTK3 rWN6sL1rkHcnfcjelPQivR sgdmVydGlj WJpyHNvtV640UEFanLugLt NvZGluZyBEYXRlOiAgMDIv MjgvMjAyNDwvdGQ+PHRkIH R8xBxrLQHm dSPmLOecNh4zwUgxwFjkQG 4qFQYhxbslCOHtgN5qXJKm rQRxnHkgGK6hVPCcwgtjo0 03PuSrGIG1 IUJktFHzR2LjhX1hPvEfGY CvKZVvV6FkpPGhBOgjA905 TDqpBcS8PINabzGvA4JvOQ FsaWduOiB0 t3Z1Ev0Dx4BbiwwxM6PsdG ZqFoXfRoebDLb2D7PhKjnp dHI+KP91XBHkWV43UEs6SG J7eMxbTKev CYRuQ0GivP5qWvCkGZCgXK RkOyc+PHRhYmxlIHdpZHRo BRzwEPAjWwEbvEnwAY1wVc 9yZGVyLWNv bRaedIGhWhYfu2shNGRoQP rmFZ7dnAebO5KbwYV3HYVp q1n3Wb79H74uD4PbjLH+PG IfhQK1nKG6 rI5jXmMkEsA1MKhbM705Kh XwhFNvNpvgu9ozx1dhuTv7 HtC0IXLwcvVamAypUJO9g5 GvRu43S72a IHdpZHRoPSIxNSUiIHZhbG jvbo0agR3bIb4+PGNvbCB3 qTV4iN3nIhKnStX1XVlsA4 49InRvcCIv Xkvfj8pzm0dtrHa8OsWuRP CroiGqpFfoEAK1j7NyNo93 P1YkhPbta6VaGuc2ak99qT Xzh7Q1mTQ1 I5NgHACakfuewAWnyZbkRY 9tALXpihiwEDTnjH3cMAUt G5z9MpNdFfC3RAoqP0Qpuw T6SLTvvZYr ONTpnODZgF5kuryiu1jilu kqAgQsGXGlUIp9PHx8NNBc fUhfIpIyXAP4WuX9TAW8sI BduX7zmZny jcppoA9tYyb+UGS3kHVgxR IDFW8sBjygyKA+PHRkIHN0 tYizKYdzFBHjqB4jUWLpA3 y8MbJvXxE8 WXyyH0BfaxE0IGIxkCTsSV AtcXPIlX7rxicux7wqyftr MqZkFQNiMIh6RJe0HRTrhG duOiBsZWZ0 QnI3ZTG8xNGoyQ7meXgcdt obdF5nRnj+QmlydGggRGF0 VUl4H3InWdd0FGWdyQegXN 0ncGFkZGlu Ur4daCtleGwaUX5aTDEoqh res048CrCgu3gsXRNjrIOp FFfuSSV3F52cr9D8AGHeLS HoAHL1vZG2 cY5zhYtibebgmQZisNgfxp WwvYqzUHqtGQetE834HGDj yFjsByRsQNg8U5WsYef1WS JagRtzQL4o sVObLOqqUn5idIizcNweQX 7uZYShwahlr333ImFjx5al PQOebKRpLErfBQJ4T96lj8 V8JQVcUCBu LSD1yMO7dO3jyRqhojikpP VmdDsgdmVydGljYWwtYWxp P500XECkqIfcRqGhwPh5N2 GlUxh3AIVd zYudGO5eaZVhWDibMf0bcI jarAqfRN7zPONqlnbae086 ZdYhc7yzSRIyzUVySIhvUO S0C65wl9X9 OQCzKBAgRIX2jBE2qH1kaK lnbjogbGVmdDsgdmVydGlj BXxaOFigE028JQBfbNkkZs BhdGllbnQg OWmkHCg3Q5JeHfjwzNU+PC 32AUZlYF46wCJwmMMlb5gp iDw7NwMkCGRvSEO8kGfxLW vcf7ZmBXJu I31qgAWmz8H3WDBlmSidzA FtSiBwoGH5oU4iONoekzqb q6wwwfhyEwmcu8kntq60tP 06B76vRZhb ZHRoPSIzMCUiIHZhbGlnbj 1unF5oVz9+LDUnjKD7zLU3 cX8aTUBuRrD4CIfbL282Xi RvcCIvPjxj l4hma7zcdMn5JuA4SOJdfg WfqXdjSHZ6c1DoVr62H30z IHdpZHRoPSIyMCUiIHZhbG agfi4xyU3a Ii8+CHNpfYY0eXL5wS4aFp VzXqZ8JPlmA093RsIuvGUr FpepG17tY0QjiAP+PHRyPj k0EGXuaGvb XG5joXLdYXsnDg4yCZP7Hx GtMaTrETnlJ7HwQCUzebsy bhcvrFG2HLAwSNInhP79Co 9udDogMTBw eZBGqJ7asjpws9lqttmwRb GnEVElHEb9QLr8OQJtnYva EvXyAZW8AdY2SNM2mDZsoJ 1hbGlnbjog gL2kX3RjTSHhbnhuIo55kQ 2uZvNbHmN9POdvYhr+RlJB WklFUiwgUEhJTExJUCBQQV EQHX54TD40 iMHyc9I7cTG4Q4ScLDYhrw xsdaddyHU2CHWuMONhcS04 qNElLVewIo2kd0D2t167GV ZbHYOeqJ34 Qk2onNjuFIComNATuQ5wyz rbx2qkiivrFwFtNRDiDJq3 PXg6USZuzSkdXcWrHNF9Qm J2KVL3aBZv lS4acAfvgauwwM3mKqa+MD CdZwqsVRn6GlbatZD+PHRk AAW4hOxwTBwiISPpzL2qRY XzT5m6LaUv ZaH4MXeaM1AfUDDouxcnJj 89jD2jUyRgAeY9PYjxM1Hq bkF6FZNgcJNxGGxgDMJ1U8 2hq2F4QRMj VXDtVKA1kMH1dR3tdRjsfy ogbGVmdDsgdmVydGljYWwt FAvxI091UEHrjEnpIgwpUY drNYSxJJ19 QY06rWDqp8H8wFU7P9YfCI EfyooubtaogLB4UIIfAACw nY26nOWhKXipCz0pc3G2h2 06IDAuMDUw uE63Aq5uvUjxWQDseRPYsV 4ggjbum0ujgwbnSvPoDQCj DRg2EJb6BVMcsGagVlCbFW D4YxW8KBQ1 xLGhyD6nmWzlpmwnyB8aXq c+TUFMRTwvdGQ+PHRkIHN0 bXrgFJggNBYqlH0qGMLkY4 x4UpGjVuT1 LKorY9BhNWGiqwweHe88aO 6dKmFqMvQ9FCszQ4FsfvM5 JGLswILpTIooSGM0G39jy9 T8YHGsJBGi YJA8vCY4vO1cqOgwwhzxxA VmdDsgdmVydGljYWwtYWxp W780NVVsvWuqWkHdnZWEeG JbGOW3GV21 HE43E4OzYkwehIVygAO+PH RhYmxlIHdpZHRoPScxMDAl KqXliFvfJZ7lBg9rDMUySR NvbGxhcHNl BmWce2qdXLFmONqwMA3lwV kuK5QmgWD6JIBht1p6Xi45 N26dC1LspXD+CJOogVZ7aU D3eR5jCzOy ApH0ZEpqG667KdPidMQeRp oqg9drw0mmcJs1ZwHzNZNx ebJyiBinEVU3u2PhKp60R8 9sIHdpZHRo ZOZvAEZiMWUsbJbfty8hxT 9wIi8+HEPilAZ1yIJ5hT4l WgBlBwO1EDxbF043RgXuvH VdQwiaT44z H2XvyIF+WSSmTzo9JSAooR tcOB9riZBbKHqxSx1dWTK5 RhMhUaYsHBfrK8BcGSFlqc ctcmlnaHQ6 ZRAgCKAzhG33Hw1sxVdmNo 3mSNPlHZW3UJJyyAWsM1Ry zS5pYyXmLSHgYDEbV8XtrJ AhPTtzB656 VUufTkM1IOWbaxEzW4AbTW ZgaHiiNdA0c4A1Qs8JdAae bQEySV9pXzXdMNu6E6PgVr o8JHJzlGjn IR6wbLFxFPhuCz4eoNxuqO gqTO7gEXOnvwsee693NeSt j4loGRWrlXVfLRkwQIO3J6 5dq0B9DKBf RLCzZUP7qOS4nG1viHnatv ogbGVmdDsgdmVydGljYWwt CRlyV456LYMwdMsfWpEZRj l0D7LaKry9 VFLkaWvzLV6gnEOuOPgnHv 4iwMzqbJlwPZ0pFOCxavmx o846XuJed3myZWVbgOLcAU qsAWG2K03z i2K7ZPNdIVGfRKV8pGD0fK 1hbGlnbjogbGVmdDsgdmVy aWhaLVeuFYvvE739ZAQjmU frPb9QRcs4 R9IgYql6KCYcvItyTG9qxU GlSFneHu9uvWakmMgiMN0o XXGckzsxi847SkNbi3ivRE EwcHQgVGlt KHW7H77gp2P0AHVuJWDqNQ L0hGC9xF5lyNminjyfpQDp dDsgdmVydGljYWwtYWxpZ2 46IHRvcDsn PlBheWVyOjwvdGQ+PC90cj 26A5QmLawbTda1HBUkTFD4 yXE0pP6rMWEiOLiyz2D6nI D8W4UridIf ci1 (more content not included)... [facility] Provider Orderson 05-07-2023 Provider Orders [id number]#1.00 [facility] Consent Formson 05-04-2023 Consent Forms [id number]#1.00 [facility] Inpatient Patient Summaryon 05-03-2023 Inpatient [place] [address] Patient Discharge Instructions Name: KAMRAN HARLEY GEETA : 1950 Patient Address: [address] [place], [place] [address] [address] Primary Care Provider: Name: KEYSHA KOENIGRonnellJESUS After you are discharged if you find you have any questions, please, call [phone] ext [phone] to speak to a nurse. Discharge Diagnosis: 1:Neurogenic bladder Prescription Information: If you have been given a prescription for narcotics, seek immediate medical attention if you have any difficulty breathing or any sudden status changes such as confusion and sleepiness. If you or anyone you know is experiencing suicidal thoughts, mental health, alcohol and/or drug addiction problems; contact the [facility] 02/10 Crisis Hotline -Text 4HENY to 565748. If you received any narcotics, sedation, or any other medication that causes drowsiness for the next 24 hours, unless otherwise directed: ? Do not drive a car. ? Do not operate machinery such as power tools, lawn mowers, drills, sewing machines, or stoves ? Avoid alcoholic beverages and drugs for allergies, nerves, or sleep ? Do not make important personal or business decisions or sign any legal documents [facility] would like to thank you for allowing us to assist you with your healthcare needs. The following includes patient education materials and information regarding your injury/illness. KAMRAN HARLEY has been given the following list of follow-up instructions, prescriptions, and patient education materials: Follow-up Instructions With: Address: When: Dimitry Dick MD Medications During the course of your visit, your medication list was updated with the most current information. The details of those changes are reflected below: Medications That Were Updated - Follow Below Instructions Other Medications Updated: insulin regular (Humulin R 100 units/mL injectable solution) Subcutaneous (under the skin) 3 times a day before meals. per sliding scale. Medications to Continue That Have Not Changed Other Medications ascorbic acid (Vitamin C 500 mg oral tablet) 1 tab(s) Oral (given by mouth) every day. atorvastatin (atorvastatin 20 mg oral tablet) 1 tab(s) Oral (given by mouth) every day. biotin (biotin 1000 mcg oral tablet) 1 tab(s) Oral (given by mouth) 2 times a day (scheduled). cephalexin (cephalexin 500 mg oral capsule) 1 tab(s) Oral (given by mouth) every day. cholecalciferol (Vitamin D3 5000 intl units oral tablet) 1 tab(s) Oral (given by mouth) every day. dapagliflozin-metformi n (Xigduo XR 5 mg-1000 mg oral tablet, extended release) 1 tab(s) Oral (given by mouth) 2 times a day (scheduled). DULoxetine (DULoxetine 60 mg oral delayed release capsule) 1 cap(s) Oral (given by mouth) every day. (do not crush or chew). furosemide (furosemide 20 mg oral tablet) 1 tab(s) Oral (given by mouth) every day as needed Other (see comment). edema. losartan (losartan 50 mg oral tablet) 0.5 tab(s) Oral (given by mouth) every day. multivitamin (Multivitamin, generic) 1 tab(s) Oral (given by mouth) every day. omeprazole (omeprazole 20 mg oral delayed release capsule) 1 cap(s) Oral (given by mouth) every day. Template Non-Formulary (CYANOCOBALAMIN 1,000 MCG/ML) Intramuscular once a month. warfarin (warfarin 5 mg oral tablet) 1 tab(s) Oral (given by mouth) Every Sunday. warfarin (warfarin 7.5 mg oral tablet) 1 tab(s) Oral (given by mouth) Sunday, Sunday, Sunday, , Sunday and Sunday. It is important to always keep an active list of medications available so that you can share with other providers and manage your medications appropriately. As an additional courtesy, we are also providing you with your final active medications list that you can keep with you. ascorbic acid (Vitamin C 500 mg oral tablet) 1 tab(s) Oral (given by mouth) every day. atorvastatin (atorvastatin 20 mg oral tablet) 1 tab(s) Oral (given by mouth) every day. biotin (biotin 1000 mcg oral tablet) 1 tab(s) Oral (given by mouth) 2 times a day (scheduled). cephalexin (cephalexin 500 mg oral capsule) 1 tab(s) Oral (given by mouth) every day. cholecalciferol (Vitamin D3 5000 intl units oral tablet) 1 tab(s) Oral (given by mouth) every day. dapagliflozin-metformi n (Xigduo XR 5 mg-1000 mg oral tablet, extended release) 1 tab(s) Oral (given by mouth) 2 times a day (scheduled). DULoxetine (DULoxetine 60 mg oral delayed release capsule) 1 cap(s) Oral (given by mouth) every day. (do not crush or chew). furosemide (furosemide 20 mg oral tablet) 1 tab(s) Oral (given by mouth) every day as needed Other (see comment). edema. insulin regular (Humulin R 100 units/mL injectable solution) Subcutaneous (under the skin) 3 times a day before meals. per sliding scale. losartan (losartan 50 mg oral tablet) 0.5 tab(s) Oral (given by mouth) every d (more content not included)... [facility] [place] [facility] Intra-Op Record Summary Primary Physician: Dimitry Dick MD Finalized Date/Time: 05/03/23 14:50:12 Pt. Name: KAMRAN HARLEY/Sex: 1950 MALE Med Rec #: [id number] Physician: Dimitry Dick MD Financial #: [id number] Pt. Type: D Room/Bed: / Admit/Disch: 05/03/23 13:13:07 - Institution: Case Times MAGR Entry 1 Patient In Room Time 05/03/23 14:30:00 Out Room Time 05/03/23 14:43:00 Anesthesia Start Time 05/03/23 14:30:00 Stop Time 05/03/23 14:39:00 Surgery Start Time 05/03/23 14:36:00 Stop Time 05/03/23 14:39:00 Last Modified By: Sruthi Hamilton RN 05/03/23 14:45:29 Case Attendance MAGR Entry 1 Entry 2 Entry 3 Case Attendee Dimitry Dick MD, Lauren L RN Ivet Gaston RN Role Performed Surgeon - Primary Dental Office Assistant Dental Office Assistant Time In 05/03/23 14:32:00 05/03/23 14:30:00 05/03/23 14:30:00 Time Out 05/03/23 14:39:00 05/03/23 14:43:00 05/03/23 14:43:00 Procedure Cystoscopy Local Cystoscopy Local Cystoscopy Local Last Modified By: Sruthi Hamilton RN, Lauren L RN Wheeler, Lauren L RN 05/03/23 14:46:34 05/03/23 14:46:34 05/03/23 14:46:34 Entry 4 Entry 5 Case Attendee Sruthi Staley Kelly PULMONOLOGY TECHNICIAN Role Performed Color Technician Color Technician Time In 05/03/23 14:30:00 05/03/23 14:30:00 Time Out 05/03/23 14:43:00 05/03/23 14:43:00 Procedure Cystoscopy Local Cystoscopy Local Last Modified By: Sruthi Hamilton RN, Lauren L RN 05/03/23 14:46:34 05/03/23 14:46:34 Surgical Procedures MAGR Pre-Care Text: A.20 Verifies operative procedure, surgical site, and laterality Im.150 Develops individualized plan of care Entry 1 Procedure Cystoscopy Local Primary Procedure Yes Primary Surgeon Dimitry Dick MD Surgeon Comment LOCAL CYSTOSCOPY Start 05/03/23 14:36:00 Stop 05/03/23 14:39:00 Anesthesia Type Local Surgical Service Urology Wound Class Clean-Contaminated Technique Details Closure Technique N/A Entire procedure Yes was performed via laparoscope or robotic assistance Last Modified By: Sruthi Hamilton RN 05/03/23 14:48:01 Post-Care Text: O.730 The patient's care is consistent with the individualized perioperative plan of care General Case Data MAGR Pre-Care Text: A.350.1 Classifies surgical wound Entry 1 Case Information OR MAGR OR 01 Case Level Level 2 Wound Class Clean-Contaminated Specialty Urology ASA Class N/A Diagnosis Preop Diagnosis NEUROPATHIC BLADDER Postop Same As Preop Yes Postop Diagnosis NEUROPATHIC BLADDER Blunt or No Is the procedure No penetrating injury considered occured prior to Emergent/Urgent? the start of the procedure: Last Modified By: Sruthi Hamilton RN 05/03/23 14:48:05 Post-Care Text: O.760 Patient receives consistent and comparable care regardless of the setting Time Out MAGR Entry 1 Procedure(s) Cystoscopy Local Time Out Checklist Verifications Patient Verified Yes Allergies Verified Yes Procedure to be Yes Presence of Yes Performed Verified Necessary with Consent Procedural Equipment, Devices, and Implants Verified Site Verification, Yes Site Marking, Site Marking Alternative, and/or Site Marking Exception in Accordance with Facility Policy Anesthesia Review Antibiotic Received n/a All Anesthesia Case does not involve Within an Concerns Addressed an anesthesia Appropriate Time professional Interval Prior to Surgical Incision Surgeon Review Anticipated Blood Yes Loss Risk, Expected Case Duration, and Critical and Non-Routine Steps to be Performed Addressed Nurse Review Team Introductions Yes Equipment Concerns Yes Completed Addressed Fall Risk Concerns Yes Fire Risk Yes Addressed Assessment Completed and Interventions Performed Skin Assessment Yes Diagnostic and No Concerns Addressed Radiological Test Results Displayed are Appropriate and Labeled Skin Prep Allowed n/a Sterilization Yes to Dry Prior to Concerns Addressed Incision Venous n/a Laser Safety n/a Thromboembolism Measures Implemented Prophylaxis Ordered Latex Precautions Yes Other Concerns Yes Implemented Addressed Time Out Dimitry Dick MD, Time Out Time 05/03/23 14:34:00 Participants Sruthi Hamilton RN, Ivet Gaston RN, Sruthi Staley Bloemer, Kelly PULMONOLOGY TECHNICIAN Last Modified By: Sruthi Hamilton RN 05/03/23 14:46:24 Patient Positioning MAGR Pre-Care Text: A.280 Identifies baseline musculoskeletal status Im.40 Positions the patient Im.80 Applies safety devices Entry 1 Procedure Cystoscopy Local Body Position Supine Left Arm Position Resting at Side Right Arm Position Resting at Side Left Leg Position Extended Right Leg Position Extended Feet Uncrossed? Yes Press Points Checked Yes Positioning Device Pillow Outcome Met (O.80) Yes Last Modified By: Sruthi Hamilton RN 05/03/23 14:47:14 Post-Care Text: E.290 Evaluates musculoskeletal status (more content not included)... [facility]2023 [facility] Pre-Op Record Summary Primary Physician: Dimitry Dick MD Finalized Date/Time: 05/03/23 15:04:35 Pt. Name: KAMRAN HARLEY/Sex: 1950 MALE Med Rec #: [id number] Physician: Dimitry Dick MD Financial #: [id number] Pt. Type: D Room/Bed: / Admit/Disch: 05/03/23 13:13:07 - Institution: Pre-Op Case Times MAGR Pre-Care Text: Patient will be optimally prepared for surgery. Patient is free from s/s of injury. Provide information to patient/family related to plan of care. Verify patient allergies. Confirm identity and verify consent before the operative or invasive procedure. Entry 1 Patient Arrival Time 05/03/23 13:25:00 Preop Departure 05/03/23 14:29:00 Last Modified By: Fernando Villalobos RN 05/03/23 15:04:33 Post-Care Text: Patient is prepared mentally and physically and is ready for surgery. The patient remains free from s/s of injury. Patient/family express understanding of plan of care and participate in decisions affecting his or her perioperrative plan of care. Allergies documented appropriately. Patient identifiers and consent correct. General Comments: Pt arrives to [facility] via w/c. Denies CP, cough, cold, COVID like sx. Denies pacer/defib, SHANIQUA. Pt is diabetic. Pt states understanding of post op instrcutions. Finalized By: Fernando Villalobos RN Document Signatures Signed By: Fernando Villalobos RN 05/03/23 15:04 [facility] Patient Handouton 05-03-2023 Patient Handout [facility] BNPon 12-25-2020 Natriuretic peptide B (Bld) [Mass/Vol] 81.0 pg/mL Normal <=900.0 [facility] Comment on above: Performed By: #### B PROJECT DEVELOPMENT COORDINATOR, ELEC, CREA, TSH, LIVER, LIPID, BUN #### [facility] [address] [place] [address] Dr. Ken Benton BUNon 12-25-2020 Urea nitrogen [Mass/Vol] 15.0 mg/dL Normal 9.0-20.0 [facility] Comment on above: Performed By: #### B PROJECT DEVELOPMENT COORDINATOR, ELEC, CREA, TSH, LIVER, LIPID, BUN #### [facility] [address] [address] [address] Ken Benton CREATININEon 12-25-2020 Creatinine [Mass/Vol] 1.00 mg/dL Normal 0.66-1.25 [facility] Comment on above: Performed By: #### B PROJECT DEVELOPMENT COORDINATOR, ELEC, CREA, TSH, LIVER, LIPID, BUN #### [facility] [address] [address] [address] Ken Benton EGFR-AF INDONESIAN >60 Normal >=60 [facility] Comment on above: Performed By: #### B PROJECT DEVELOPMENT COORDINATOR, ELEC, CREA, TSH, LIVER, LIPID, BUN #### [facility] [address] [place] [address] Dr. Ken Benton EGFR-NON AF INDONESIAN >60 Normal >=60 [facility] Comment on above: Performed By: #### B PROJECT DEVELOPMENT COORDINATOR, ELEC, CREA, TSH, LIVER, LIPID, BUN #### [facility] [address] [place] [address] Dr. Ken Benton ELECTROLYTESon 12-25-2020 Anion gap [Moles/Vol] 7.0 mmol/L Normal [facility] Comment on above: Performed By: #### B PROJECT DEVELOPMENT COORDINATOR, ELEC, CREA, TSH, LIVER, LIPID, BUN #### [facility] [address] [place] [address] Dr. Ken Benton Chloride [Moles/Vol] 104 mmol/L Normal 98-107 [facility] Comment on above: Performed By: #### B PROJECT DEVELOPMENT COORDINATOR, ELEC, CREA, TSH, LIVER, LIPID, BUN #### [facility] [address] [place] [address] Dr. Ken Benton CO2 [Moles/Vol] 34.6 mmol/L Critically high 22.0-30.0 [facility] Comment on above: Performed By: #### B PROJECT DEVELOPMENT COORDINATOR, ELEC, CREA, TSH, LIVER, LIPID, BUN #### [facility] [address] [place] [address] Dr. Ken Benton Potassium [Moles/Vol] 4.6 mmol/L Normal 3.4-5.0 [facility] Comment on above: Performed By: #### B PROJECT DEVELOPMENT COORDINATOR, ELEC, CREA, TSH, LIVER, LIPID, BUN #### [facility] [address] [place] [address] Dr. Ken Benton Sodium [Moles/Vol] 141 mmol/L Normal 137-145 [facility] Comment on above: Performed By: #### B PROJECT DEVELOPMENT COORDINATOR, ELEC, CREA, TSH, LIVER, LIPID, BUN #### [facility] [address] [address] [address] Ken Benton GLYCOHEMOGLOBIN A1Con 2020 ADA RECOMMENDATION ADA THERAPEUTIC TARG ET 6.0 - 7.0 ACTION SUGGESTED > 7.0 Normal [facility] Comment on above: Performed By: #### A 1C #### [facility] [address] [place] [address] Dr. Ken Benton Glucose [Mass/Vol] 157 mg/dL Normal [facility] Comment on above: Performed By: #### A 1C #### [facility] [address] [place] [address] Dr. Ken Benton HbA1c (Bld) [Mass fraction] 7.1 % Critically high <=6.0 [facility] Comment on above: Performed By: #### A 1C #### [facility] [address] [place] [address] Dr. Ken Benton LIPID PROFILEon 12-25-2020 CHOL-HDL RATIO NORM SEE BELOW Normal [facility] Comment on above: Result Comment: 3.3 - 4.4 LOW RISK 4.4 - 7.1 AVERAGE RISK 7.1 - 11.0 MODERATE RISK >11.0 HIGH RISK Performed By: #### B PROJECT DEVELOPMENT COORDINATOR, ELEC, CREA, TSH, LIVER, LIPID, BUN #### [facility] [address] [place] [address] Dr. Ken Benton Cholesterol [Mass/Vol] 117 mg/dL Normal <=200 [facility] Comment on above: Performed By: #### B PROJECT DEVELOPMENT COORDINATOR, ELEC, CREA, TSH, LIVER, LIPID, BUN #### [facility] [address] [place] [address] Dr. Ken Benton Cholesterol in HDL [Mass/Vol] 66 mg/dL Normal [facility] Comment on above: Performed By: #### B PROJECT DEVELOPMENT COORDINATOR, ELEC, CREA, TSH, LIVER, LIPID, BUN #### [facility] [address] [place] [address] Dr. Ken Benton Cholesterol in LDL [Mass/Vol] 31.4 mg/dL Normal [facility] Comment on above: Performed By: #### B PROJECT DEVELOPMENT COORDINATOR, ELEC, CREA, TSH, LIVER, LIPID, BUN #### [facility] [address] [address] [address] Ken Benton Cholesterol.total/Jessenia sterol in HDL [Mass ratio] 1.8 {ratio} Normal [facility] Comment on above: Performed By: #### B PROJECT DEVELOPMENT COORDINATOR, ELEC, CREA, TSH, LIVER, LIPID, BUN #### [facility] [address] [address] [address] Ken Benton HDL NORMAL > or = 60 mg/dl - LO W CARDIOVASCULAR RISK <40 mg/dl - HIGH CARDIOVASCULAR RISK Normal [facility] Comment on above: Performed By: #### B PROJECT DEVELOPMENT COORDINATOR, ELEC, CREA, TSH, LIVER, LIPID, BUN #### [facility] [address] [place] [address] Dr. Ken Benton LDL CALC NORMAL SEE BELOW Normal [facility] Comment on above: Result Comment: <100 mg/dl OPTIMAL 100 - 129 mg/dl NEAR OR ABOVE OPTIMAL 130 - 159 mg/dl BORDERLINE HIGH 160 - 189 mg/dl HIGH >190 mg/dl VERY HIGH Performed By: #### B PROJECT DEVELOPMENT COORDINATOR, ELEC, CREA, TSH, LIVER, LIPID, BUN #### [facility] [address] [place] [address] Dr. Ken Benton Triglyceride [Mass/Vol] 98 mg/dL Normal <=150 [facility] Comment on above: Performed By: #### B PROJECT DEVELOPMENT COORDINATOR, ELEC, CREA, TSH, LIVER, LIPID, BUN #### [facility] [address] [place] [address] Dr. Ken Benton VLDL CALC 19.6 mg/dL Normal [facility] Comment on above: Performed By: #### B PROJECT DEVELOPMENT COORDINATOR, ELEC, CREA, TSH, LIVER, LIPID, BUN #### [facility] [address] [place] [address] Dr. Ken Benton LIVER PROFILEon 12-25-2020 Albumin [Mass/Vol] 3.1 g/dL Critically low 3.5-5.0 [facility] Comment on above: Performed By: #### B PROJECT DEVELOPMENT COORDINATOR, ELEC, CREA, TSH, LIVER, LIPID, BUN #### [facility] [address] [place] [address] Dr. Ken Benton Albumin/Globulin [Mass ratio] 0.8 {ratio} Normal [facility] Comment on above: Performed By: #### B PROJECT DEVELOPMENT COORDINATOR, ELEC, CREA, TSH, LIVER, LIPID, BUN #### [facility] [address] [place] [address] Dr. Ken Benton ALP [Catalytic activity/Vol] 98 U/L Normal 38-126 [facility] Comment on above: Performed By: #### B PROJECT DEVELOPMENT COORDINATOR, ELEC, CREA, TSH, LIVER, LIPID, BUN #### [facility] [address] [place] [address] Dr. Ken Benton ALT [Catalytic activity/Vol] 24 U/L Normal 21-72 [facility] Comment on above: Performed By: #### B PROJECT DEVELOPMENT COORDINATOR, ELEC, CREA, TSH, LIVER, LIPID, BUN #### [facility] [address] [place] [address] Dr. Ken Benton AST [Catalytic activity/Vol] 30 U/L Normal 17-59 [facility] Comment on above: Performed By: #### B PROJECT DEVELOPMENT COORDINATOR, ELEC, CREA, TSH, LIVER, LIPID, BUN #### [facility] [address] [place] [address] Dr. Ken Benton BILI, CONJUGATED 0.2 mg/dL Normal 0.0-0.3 [facility] Comment on above: Performed By: #### B PROJECT DEVELOPMENT COORDINATOR, ELEC, CREA, TSH, LIVER, LIPID, BUN #### [facility] [address] [place] [address] Dr. eKn Benton Bilirubin [Mass/Vol] 0.6 mg/dL Normal 0.2-1.3 [facility] Comment on above: Performed By: #### B PROJECT DEVELOPMENT COORDINATOR, ELEC, CREA, TSH, LIVER, LIPID, BUN #### [facility] [address] [place] [address] Dr. Ken Benton Globulin (S) [Mass/Vol] 3.9 g/dL Normal [facility] Comment on above: Performed By: #### B PROJECT DEVELOPMENT COORDINATOR, ELEC, CREA, TSH, LIVER, LIPID, BUN #### [facility] [address] [address] [address] Ken Benton Protein [Mass/Vol] 7.0 g/dL Normal 6.1-8.2 [facility] Comment on above: Performed By: #### B PROJECT DEVELOPMENT COORDINATOR, ELEC, CREA, TSH, LIVER, LIPID, BUN #### [facility] [address] [address] [address] Ken Benton TSHon 12-25-2020 TSH 1.549 uIU/mL Normal 0.470-4.680 [facility] Comment on above: Performed By: #### B PROJECT DEVELOPMENT COORDINATOR, ELEC, CREA, TSH, LIVER, LIPID, BUN #### [facility] [address] [address] [address] Ken Benton TSH RANGE SEE BELOW Normal [facility] Comment on above: Result Comment: <0.3 4 UIU/ml HYPERTHYROID 0.34-5.60 UIU/ml EUTHYROID >5.60 UIU/ml HYPOTHYROID Performed By: #### B PROJECT DEVELOPMENT COORDINATOR, ELEC, CREA, TSH, LIVER, LIPID, BUN #### [facility] [address] [address] [address] Ken Benton FLUORO FOR SURGICAL PROCEDUR ESon 11-04-2020 FLUORO FOR SURGICAL PROCEDURES Radiology exam is complete. No Radiologist dictation. Please follow up with ordering provider. Final result Normal [facility] FLUORO FOR SURGICAL PROCEDUR ESOrdered By: Alexis Ramon on 11-04-2020 Radiology exam is complete. No Radiologist dictation. Please follow up with ordering provider. [employer] Phone: [employer] Phone: POC Glucose FingerstickOrder ed By: Alexis Ramon on 11-04-2020 Glucose [Mass/Vol] 142 mg/dL High 75 - 110 mg/dL [employer] Phone: Interpretation and review of laboratory results Abnormal [employer] Phone: [employer] Phone: Glucose [Mass/Vol] 153 mg/dL High 75 - 110 mg/dL [employer] Phone: Interpretation and review of laboratory results Abnormal [employer] Phone: [employer] Phone: PROTIME-INROrdered By: Mabel Machado on 11-04-2020 INR Coag (Bld) [Relative time] 1.3 {INR} [employer] Phone: Comment on above: Non-therapeutic Range: INR = 0.9-1.2 Therapeutic Range: Moderate Anticoagulant Intensity: INR = 2.0-3.0 High Anticoagulant Intensity: INR = 2.5-3.5 Interpretation and review of laboratory results Abnormal [employer] Phone: PT Coag (PPP) [Time] 15.6 s High [employer] Phone: [employer] Phone: PTon 11-04-2020 INR Coag (PPP) [Relative time] 1.3 {INR} Normal [facility] Comment on above: Result Comment: Non-therapeutic Range: INR = 0.9-1.2 Therapeutic Range: Moderate Anticoagulant Intensity: INR = 2.0-3.0 High Anticoagulant Intensity: INR = 2.5-3.5 Performed By: #### P T #### [facility] [place] [address] Developing Machine Operator: Alvin Lew MD PT Coag (PPP) [Time] 15.6 s High 11.5-14.2 [facility] Comment on above: Performed By: #### P T #### [facility] [place] [address] Developing Machine Operator: Alvin Lew MD CBCon 09-06-2020 Erythrocyte distribution width (RBC) [Ratio] 15.0 % High 11.8-14.4 [facility] Comment on above: Performed By: #### L ACDS #### [address] [address] Developing Machine Operator: Nhan Mast MD Hematocrit (Bld) [Volume fraction] 40.6 % Low 40.7-50.3 [facility] Comment on above: Performed By: #### L ACDS #### [address] [address] Developing Machine Operator: Nhan Mast MD Hemoglobin (Bld) [Mass/Vol] 12.3 g/dL Low 13.0-17.0 [facility] Comment on above: Performed By: #### L ACDS #### [address] [address] Developing Machine Operator: Nhan Mast MD MCH (RBC) [Entitic mass] 27.7 pg Normal 25.2-33.5 [facility] Comment on above: Performed By: #### L ACDS #### [address] [address] Developing Machine Operator: Nhan Mast MD MCHC (RBC) [Mass/Vol] 30.3 g/dL Normal 28.4-34.8 [facility] Comment on above: Performed By: #### L ACDS #### [address] [address] Developing Machine Operator: Nhan Mast MD MCV (RBC) [Entitic vol] 91.4 fL Normal 82.6-102.9 [facility] Comment on above: Performed By: #### L ACDS #### [address] [address] Developing Machine Operator: Nhan Mast MD NRBC Automated 0.0 per 100 WBC Normal 0.0 [facility] Comment on above: Performed By: #### L ACDS #### [address] [id number] Developing Machine Operator: Nhan Mast MD Platelet mean volume (Bld) [Entitic vol] 11.3 fL Normal 8.1-13.5 [facility] Comment on above: Performed By: #### L ACDS #### [address] [place] [address] Developing Machine Operator: Nhan Mast MD Platelets (Bld) [#/Vol] 416 10*3/uL Normal 138-453 [facility] Comment on above: Performed By: #### L ACDS #### [address] [address] Developing Machine Operator: Nhan Mast MD RBC (Bld) [#/Vol] 4.44 10*6/uL Normal 4.21-5.77 [facility] Comment on above: Performed By: #### L ACDS #### [address] [address] Developing Machine Operator: Nhan Mast MD WBC (Bld) [#/Vol] 5.2 10*3/uL Normal 3.5-11.3 [facility] Comment on above: Performed By: #### L ACDS #### [address] [address] Developing Machine Operator: Nhan Mast MD CBCOrdered By: Jesus Forrest on on 09-06-2020 Hematocrit (Bld) [Volume fraction] 40.6 % Low 40.7 - 50.3 % [employer] Phone: Hemoglobin.gastrointest inal spec 1 Ql (Stl) 12.3 g/dL Low 13.0 - 17.0 g/dL [employer] Phone: Interpretation and review of laboratory results Abnormal [employer] Phone: MCH (RBC) [Entitic mass] 27.7 pg 25.2 - 33.5 pg [employer] Phone: MCHC (RBC) [Mass/Vol] 30.3 g/dL 28.4 - 34.8 g/dL [employer] Phone: MCV (RBC) [Entitic vol] 91.4 fL 82.6 - 102.9 fL [employer] Phone: NRBC Automated 0.0 0.0 per 100 WBC [employer] Phone: Platelet distribution width (Bld) [Ratio] 15.0 % High 11.8 - 14.4 % [employer] Phone: Platelet mean volume (Bld) [Entitic vol] 11.3 fL 8.1 - 13.5 fL [employer] Phone: Platelets (Bld) [#/Vol] 416 10*3/uL [employer] Phone: RBC (Bld) [#/Vol] 4.44 10*6/uL 4.21 - 5.7 7 m/uL [employer] Phone: WBC (Bld) [#/Vol] 5.2 10*3/uL [employer] Phone: [employer] Phone: HEPATIC FUNCTION PANELOrdere d By: Harvey Dotson on 09-06-2020 Albumin [Mass/Vol] 2.9 g/dL Low 3.5 - 5.2 g/dL [employer] Phone: Albumin/Globulin [Mass ratio] 1.0 {ratio} [employer] Phone: ALP (Bld) [Catalytic activity/Vol] 220 U/L High 40 - 129 U/L [employer] Phone: ALT [Catalytic activity/Vol] 43 U/L High 5 - 41 U/L [employer] Phone: AST [Catalytic activity/Vol] 46 U/L High <40 [employer] Phone: Bilirubin [Mass/Vol] 1.34 mg/dL High 0.3 - 1 .2 mg/dL [employer] Phone: Bilirubin, Indirect 0.61 mg/dL 0.00 - 1 .00 mg/dL [employer] Phone: Bilirubin.indirect [Mass/Vol] 0.73 mg/dL High <0.31 [employer] Phone: Free PSA/Total PSA [Mass fraction] 5.8 g/dL Low 6.4 - 8.3 g/dL [employer] Phone: Globulin NOT REPORTED 1.5 - 3.8 g/dL [employer] Phone: Interpretation and review of laboratory results Abnormal [employer] Phone: [employer] Phone: Liver Profileon 09-06-2020 Albumin [Mass/Vol] 2.9 g/dL Low 3.5-5.2 [facility] Comment on above: Performed By: #### L ACDS #### [facility] [address] [place] [id number] Developing Machine Operator: Nhan Mast MD Albumin/Glob Ratio 1.0 Normal 1.0-2.5 [facility] Comment on above: Performed By: #### L ACDS #### [facility] [place], [place] [id number] Developing Machine Operator: Nhan Mast MD Alkaline Phos 220 U/L High 40-129 [facility] Comment on above: Performed By: #### L ACDS #### [facility] [address] [place], [place] [id number] Developing Machine Operator: Nhan Mast MD ALT [Catalytic activity/Vol] 43 U/L High 5-41 [facility] Comment on above: Performed By: #### L ACDS #### [address] [address] Developing Machine Operator: Nhan Mast MD AST [Catalytic activity/Vol] 46 U/L High <40 [facility] Comment on above: Performed By: #### L ACDS #### [address] [address] Developing Machine Operator: Nhan Mast MD Bilirubin [Mass/Vol] 1.34 mg/dL High 0.3-1.2 [facility] Comment on above: Performed By: #### L ACDS #### [address] [address] Developing Machine Operator: Nhan Mast MD Bilirubin, Indirect 0.61 mg/dL Normal 0.00-1.00 [facility] Comment on above: Performed By: #### L ACDS #### [address] [address] Developing Machine Operator: Nhan Mast MD Bilirubin.indirect [Mass/Vol] 0.73 mg/dL High <0.31 [facility] Comment on above: Performed By: #### L ACDS #### [address] [address] Developing Machine Operator: Nhan Mast MD Protein [Mass/Vol] 5.8 g/dL Low 6.4-8.3 [facility] Comment on above: Performed By: #### L ACDS #### [address] [address] Developing Machine Operator: Nhan Mast MD Globulin Fraction NOT REPORTED Normal 1.5-3.8 [facility] Comment on above: Performed By: #### L ACDS #### [address] [address] Developing Machine Operator: Nhan Mast MD Magnesiumon 09-06-2020 Magnesium [Mass/Vol] 1.7 mg/dL Normal 1.6-2.6 [facility] Comment on above: Performed By: #### L ACDS #### [facility] [address] [place] [address] Developing Machine Operator: Nhan Mast MD MagnesiumOrdered By: Jesus Poe on 09-06-2020 Magnesium [Mass/Vol] 1.7 mg/dL 1.6 - 2 .6 mg/dL [employer] Phone: [employer] Phone: POC Glucose FingerstickOrder ed By: Main Ascencio on 09-06-2020 Glucose [Mass/Vol] 296 mg/dL High 75 - 110 mg/dL [employer] Phone: Interpretation and review of laboratory results Abnormal [employer] Phone: [employer] Phone: Glucose [Mass/Vol] 351 mg/dL High 75 - 110 mg/dL [employer] Phone: Interpretation and review of laboratory results Abnormal [employer] Phone: [employer] Phone: Glucose [Mass/Vol] 238 mg/dL High 75 - 110 mg/dL [employer] Phone: Interpretation and review of laboratory results Abnormal [employer] Phone: [employer] Phone: Glucose [Mass/Vol] 100 mg/dL 75 - 110 mg/dL [employer] Phone: [employer] Phone: PROTIME-INROrdered By: Margi Dotson on 09-06-2020 INR Coag (Bld) [Relative time] 1.0 {INR} [facility] Work Phone: PT Coag (PPP) [Time] 11 s [facility] Work Phone: [facility] Work Phone: PTon 09-06-2020 INR Coag (PPP) [Relative time] 1.0 {INR} Normal [facility] Comment on above: Result Comment: Therapeutic Range: Moderate Anticoagulant Intensity: INR = 2.0-3.0 High Anticoagulant Intensity: INR = 2.5-3.5 Performed By: #### L ACDS #### [facility] [address] [place], [place] [id number] Developing Machine Operator: Nhan Mast MD PT Coag (PPP) [Time] 11.0 s Normal 9.1-12.3 [facility] Comment on above: Performed By: #### L ACDS #### [facility] [address] [place] [address] Developing Machine Operator: Nhan Mast MD Procalcitoninon 09-06-2020 Procalcitonin 0.33 ng/mL High <0.09 [facility] Comment on above: Result Comment: Suspected Sepsis: <0.50 ng/mL Low likelihood of sepsis. 0.50-2.00 ng/mL Increased likelihood of sepsis. Antibiotics encouraged. >2.00 ng/mL High risk of sepsis/shock. Antibiotics strongly encouraged. Suspected Lower Resp Tract Infections: <0.24 ng/mL Low likelihood of bacterial infection. >0.24 ng/mL Increased likelihood of bacterial infection. Antibiotics encouraged. With successful antibiotic therapy, PCT levels should decrease rapidly. (Half-life of 24 to 36 hours.) Procalcitonin values from samples collected within the first 6 hours of systemic infection may still be low. Retesting may be indicated. Values from day 1 and day 4 can be entered into the Change in Procalcitonin Calculator (www.repklh-njq-[email or web address]) to determine the patient's Mortality Risk Prognosis In healthy neonates, plasma Procalcitonin (PCT) concentrations increase gradually after , reaching peak values at about 24 hours of age then decrease to normal values below 0.5 ng/mL by 48-72 hours of age. Performed By: #### L ACDS #### [address] [address] Developing Machine Operator: Nhan Mast MD ProcalcitoninOrdered By: Mihaela Poe on 09-06-2020 Interpretation and review of laboratory results Abnormal [employer] Phone: Procalcitonin 0.33 ng/mL High <0.09 [employer] Phone: [employer] Phone: CBCon 09-05-2020 Erythrocyte distribution width (RBC) [Ratio] 15.3 % High 11.8-14.4 [facility] Comment on above: Performed By: #### L ACDS #### [address] [address] Developing Machine Operator: Nhan Mast MD Hematocrit (Bld) [Volume fraction] 40.1 % Low 40.7-50.3 [facility] Comment on above: Performed By: #### L ACDS #### [address] [address] Developing Machine Operator: Nhan Mast MD Hemoglobin (Bld) [Mass/Vol] 12.5 g/dL Low 13.0-17.0 [facility] Comment on above: Performed By: #### L ACDS #### [facility] [employer] [address] [place] [address] Developing Machine Operator: Nhan Mast MD MCH (RBC) [Entitic mass] 27.5 pg Normal 25.2-33.5 [facility] Comment on above: Performed By: #### L ACDS #### [facility] [employer] [address] [place] [address] Developing Machine Operator: Nhan Mast MD MCHC (RBC) [Mass/Vol] 31.2 g/dL Normal 28.4-34.8 [facility] Comment on above: Performed By: #### L ACDS #### [address] [address] Developing Machine Operator: Nhan Mast MD MCV (RBC) [Entitic vol] 88.1 fL Normal 82.6-102.9 [facility] Comment on above: Performed By: #### L ACDS #### [address] [address] Developing Machine Operator: Nhan Mast MD NRBC Automated 0.0 per 100 WBC Normal 0.0 [facility] Comment on above: Performed By: #### L ACDS #### [address] [address] Developing Machine Operator: Nhan Mast MD Platelet mean volume (Bld) [Entitic vol] 11.6 fL Normal 8.1-13.5 [facility] Comment on above: Performed By: #### L ACDS #### [address] [address] Developing Machine Operator: Nhan Mast MD Platelets (Bld) [#/Vol] 308 10*3/uL Normal 138-453 [facility] Comment on above: Performed By: #### L ACDS #### [address] [address] Developing Machine Operator: Nhan Mast MD RBC (Bld) [#/Vol] 4.55 10*6/uL Normal 4.21-5.77 [facility] Comment on above: Performed By: #### L ACDS #### [address] [address] Developing Machine Operator: Nhan Mast MD WBC (Bld) [#/Vol] 5.0 10*3/uL Normal 3.5-11.3 [facility] Comment on above: Performed By: #### L ACDS #### [facility] [address] [place] [address] Developing Machine Operator: Nhan Mast MD CBCOrdered By: Harvey Dotson on 09-05-2020 Hematocrit (Bld) [Volume fraction] 40.1 % Low 40.7 - 50.3 % [employer] Phone: Hemoglobin.gastrointest inal spec 1 Ql (Stl) 12.5 g/dL Low 13.0 - 17.0 g/dL [employer] Phone: Interpretation and review of laboratory results Abnormal [employer] Phone: MCH (RBC) [Entitic mass] 27.5 pg 25.2 - 33.5 pg [employer] Phone: MCHC (RBC) [Mass/Vol] 31.2 g/dL 28.4 - 34.8 g/dL [employer] Phone: MCV (RBC) [Entitic vol] 88.1 fL 82.6 - 102.9 fL [employer] Phone: NRBC Automated 0.0 0.0 per 100 WBC [employer] Phone: Platelet distribution width (Bld) [Ratio] 15.3 % High 11.8 - 14.4 % [employer] Phone: Platelet mean volume (Bld) [Entitic vol] 11.6 fL 8.1 - 13.5 fL [employer] Phone: Platelets (Bld) [#/Vol] 308 10*3/uL [employer] Phone: RBC (Bld) [#/Vol] 4.55 10*6/uL 4.21 - 5.7 7 m/uL [employer] Phone: WBC (Bld) [#/Vol] 5.0 10*3/uL [employer] Phone: [employer] Phone: Cult, Bloodon 09-05-2020 Cult, Blood Specimen Description .BLOOD Special Requests R H 10 ML Culture NO GROWTH 5 DAYS Report Status FINAL 09/04/2020 Normal [facility] Comment on above: Performed By: #### B PROJECT DEVELOPMENT COORDINATOR, TROPI, LACDS, PT, CMPX, CDP, MG, PRCAL #### [facility] [address] [place], [place] [phone] Developing Machine Operator: Nhan Mast MD Magnesiumon 09-05-2020 Magnesium [Mass/Vol] 1.8 mg/dL Normal 1.6-2.6 [facility] Comment on above: Performed By: #### L ACDS #### [facility] [address] [place], [place] [phone] Developing Machine Operator: Nhan Mast MD MagnesiumOrdered By: Jesus Poe on 09-05-2020 Magnesium [Mass/Vol] 1.8 mg/dL 1.6 - 2 .6 mg/dL [facility] Phone: [employer] Phone: POC Glucose FingerstickOrder ed By: Harvey Dotson on 09-05-2020 Glucose [Mass/Vol] 231 mg/dL High 75 - 110 mg/dL [facility] Phone: Interpretation and review of laboratory results Abnormal [employer] Phone: [employer] Phone: Glucose [Mass/Vol] 412 mg/dL Critically high 75 - 1 10 mg/dL [facility] Phone: Interpretation and review of laboratory results Abnormal [employer] Phone: [employer] Phone: Glucose [Mass/Vol] 364 mg/dL High 75 - 110 mg/dL [facility] Phone: Interpretation and review of laboratory results Abnormal [facility] Phone: [employer] Phone: Glucose [Mass/Vol] 230 mg/dL High 75 - 110 mg/dL [facility] Phone: Interpretation and review of laboratory results Abnormal [employer] Phone: [employer] Phone: PROTIME-INROrdered By: Margi Dotson on 09-05-2020 INR Coag (Bld) [Relative time] 1.0 {INR} [facility]: PT Coag (PPP) [Time] 11.1 s [facility] Phone: [employer] Phone: PTon 09-05-2020 INR Coag (PPP) [Relative time] 1.0 {INR} Normal [facility] Comment on above: Result Comment: Therapeutic Range: Moderate Anticoagulant Intensity: INR = 2.0-3.0 High Anticoagulant Intensity: INR = 2.5-3.5 Performed By: #### L ACDS #### [facility] [address] [place] [phone] Developing Machine Operator: Nhan Mast MD PT Coag (PPP) [Time] 11.1 s Normal 9.1-12.3 [facility] Comment on above: Performed By: #### L ACDS #### [facility] [address] [place] [phone] Developing Machine Operator: Nhan Mast MD Procalcitoninon 09-05-2020 Procalcitonin 0.57 ng/mL High <0.09 [facility] Comment on above: Result Comment: Suspected Sepsis: <0.50 ng/mL Low likelihood of sepsis. 0.50-2.00 ng/mL Increased likelihood of sepsis. Antibiotics encouraged. >2.00 ng/mL High risk of sepsis/shock. Antibiotics strongly encouraged. Suspected Lower Resp Tract Infections: <0.24 ng/mL Low likelihood of bacterial infection. >0.24 ng/mL Increased likelihood of bacterial infection. Antibiotics encouraged. With successful antibiotic therapy, PCT levels should decrease rapidly. (Half-life of 24 to 36 hours.) Procalcitonin values from samples collected within the first 6 hours of systemic infection may still be low. Retesting may be indicated. Values from day 1 and day 4 can be entered into the Change in Procalcitonin Calculator (www.izxmah-cnh-snnmybampr.com) to determine the patient's Mortality Risk Prognosis In healthy neonates, plasma Procalcitonin (PCT) concentrations increase gradually after , reaching peak values at about 24 hours of age then decrease to normal values below 0.5 ng/mL by 48-72 hours of age. Performed By: #### L ACDS #### [facility] [address] [place] [phone] Developing Machine Operator: Nhan Mast MD SPECIMEN REJECTIONOrdered By : Jesus Poe on 09-05-2020 - NOT REPORTED [employer] Phone: Ordered Test CBC [facility] Phone: Reason for Rejection Unable to perform testing: Specimen clotted. [employer] Phone: Specimen source Nom (Unsp spec) .BLOOD [employer] Phone: [employer] Phone: Specimen Rejectionon 021 Reason for rejection Unable to perform testing: Specimen clotted. Normal [facility] Comment on above: Performed By: #### L ACDS #### [facility] [address] [place] [phone] Developing Machine Operator: Nhan Mast MD Source of sample .BLOOD Normal [facility] Comment on above: Performed By: #### L ACDS #### [facility] [address] [place] [address] Developing Machine Operator: Nhan Mast MD Test ordered CBC Normal [facility] Comment on above: Performed By: #### L ACDS #### [facility] [address] [place], [place] [phone] Developing Machine Operator: Nhan Mast MD ----- NOT REPORTED Normal [facility] Comment on above: Performed By: #### L ACDS #### [facility] [address] [place], [place] [phone] Developing Machine Operator: Nhan Mast MD Basic Metabolic PanelOrdered By: Jesus Poe on 09-04-2020 Anion gap [Moles/Vol] 10 mmol/L 9 - 17 mmol/L [employer] Phone: Calcium [Mass/Vol] 8.5 mg/dL Low 8.6 - 10. 4 mg/dL [facility] Phone: Chloride [Moles/Vol] 98 mmol/L 98 - 10 7 mmol/L [employer] Phone: CO2 [Moles/Vol] 29 mmol/L 20 - 31 mmol/L [employer] Phone: Creatinine [Mass/Vol] 0.44 mg/dL Low 0.70 - 1.20 mg/dL [employer] Phone: GFR >60 >60 mL/min [employer] Phone: GFR Non- >60 >60 mL/min [employer] Phone: GFR/1.73 sq M.predicted MDRD (S/P/Bld) [Vol rate/Area] [facility] Phone: GFR/1.73 sq M.predicted MDRD (S/P/Bld) [Vol rate/Area] NOT REPORTED [employer] Phone: Glucose [Mass/Vol] 290 mg/dL High 70 - 99 mg/dL [employer] Phone: Interpretation and review of laboratory results Abnormal [employer] Phone: Potassium [Moles/Vol] 3.7 mmol/L 3.7 - 5.3 mmol/L [employer] Phone: Sodium [Moles/Vol] 137 mmol/L 135 - 144 mmol/L [employer] Phone: Urea nitrogen (BldV) [Mass/Vol] 15 mg/dL 8 - 23 mg/dL [employer] Phone: Urea nitrogen/Creatinine (Bld) [Mass ratio] NOT REPORTED [employer] Phone: [employer] Phone: Basic Metabolic Profon 09-04 (cont.) Normal [facility] Comment on above: Result Comment: Aver age GFR for 60-69 years old: 85 mL/min/1.73sq m Chronic Kidney Disease: <60 mL/min/1.73sq m Kidney failure: <15 mL/min/1.73sq m eGFR calculated using average adult body mass. Additional eGFR calculator available at: http://www.MILI/multiple_crcl_2011.htm Performed By: #### B PROJECT DEVELOPMENT COORDINATOR, TROPI, LACDS, PT, CMPX, CDP, MG, PRCAL #### [facility] [address] [place] [phone] Developing Machine Operator: Nhan Mast MD Anion gap [Moles/Vol] 10 mmol/L Normal 9-17 [facility] Comment on above: Performed By: #### B PROJECT DEVELOPMENT COORDINATOR, TROPI, LACDS, PT, CMPX, CDP, MG, PRCAL #### [facility] [place] [address] Developing Machine Operator: Nhan Mast MD Calcium [Mass/Vol] 8.5 mg/dL Low 8.6-10.4 [facility] Comment on above: Performed By: #### B PROJECT DEVELOPMENT COORDINATOR, TROPI, LACDS, PT, CMPX, CDP, MG, PRCAL #### [address] [address] Developing Machine Operator: Nhan Mast MD Chloride [Moles/Vol] 98 mmol/L Normal 98-107 [facility] Comment on above: Performed By: #### B PROJECT DEVELOPMENT COORDINATOR, TROPI, LACDS, PT, CMPX, CDP, MG, PRCAL #### [address] [address] Developing Machine Operator: Nhan Mast MD CO2 [Moles/Vol] 29 mmol/L Normal 20-31 [facility] Comment on above: Performed By: #### B PROJECT DEVELOPMENT COORDINATOR, TROPI, LACDS, PT, CMPX, CDP, MG, PRCAL #### [address] [address] Developing Machine Operator: Nhan Mast MD Creatinine [Mass/Vol] 0.44 mg/dL Low 0.70-1.20 [facility] Comment on above: Performed By: #### B PROJECT DEVELOPMENT COORDINATOR, TROPI, LACDS, PT, CMPX, CDP, MG, PRCAL #### [facility] [address] [place] [address] Developing Machine Operator: Nhan Mast MD GFR, Amer >60 Normal >60 [facility] Comment on above: Performed By: #### B PROJECT DEVELOPMENT COORDINATOR, TROPI, LACDS, PT, CMPX, CDP, MG, PRCAL #### [facility] [address] [place] [address] Developing Machine Operator: Nhan Mast MD GFR,non Amer >60 Normal >60 [facility] Comment on above: Performed By: #### B PROJECT DEVELOPMENT COORDINATOR, TROPI, LACDS, PT, CMPX, CDP, MG, PRCAL #### [facility] [address] [place] [address] Developing Machine Operator: Nhan Mast MD Glucose [Mass/Vol] 290 mg/dL High 70-99 [facility] Comment on above: Performed By: #### B PROJECT DEVELOPMENT COORDINATOR, TROPI, LACDS, PT, CMPX, CDP, MG, PRCAL #### [address] [address] Developing Machine Operator: Nhan Mast MD Potassium [Moles/Vol] 3.7 mmol/L Normal 3.7-5.3 [facility] Comment on above: Performed By: #### B PROJECT DEVELOPMENT COORDINATOR, TROPI, LACDS, PT, CMPX, CDP, MG, PRCAL #### [address] [address] Developing Machine Operator: Nhan Mast MD Sodium [Moles/Vol] 137 mmol/L Normal 135-144 [facility] Comment on above: Performed By: #### B PROJECT DEVELOPMENT COORDINATOR, TROPI, LACDS, PT, CMPX, CDP, MG, PRCAL #### [address] [address] Developing Machine Operator: Nhan Mast MD Urea nitrogen [Mass/Vol] 15 mg/dL Normal 8-23 [facility] Comment on above: Performed By: #### B PROJECT DEVELOPMENT COORDINATOR, TROPI, LACDS, PT, CMPX, CDP, MG, PRCAL #### [address] [address] Developing Machine Operator: Nhan Mast MD BUN/CRE Ratio NOT REPORTED Normal 9-20 [facility] Comment on above: Performed By: #### B PROJECT DEVELOPMENT COORDINATOR, TROPI, LACDS, PT, CMPX, CDP, MG, PRCAL #### [address] [address] Developing Machine Operator: Nhan Mast MD Staging: NOT REPORTED Normal [facility] Comment on above: Performed By: #### B PROJECT DEVELOPMENT COORDINATOR, TROPI, LACDS, PT, CMPX, CDP, MG, PRCAL #### [address] [address] Developing Machine Operator: Nhan Mast MD CBCon 09-04-2020 Erythrocyte distribution width (RBC) [Ratio] 15.3 % High 11.8-14.4 [facility] Comment on above: Performed By: #### B PROJECT DEVELOPMENT COORDINATOR, TROPI, LACDS, PT, CMPX, CDP, MG, PRCAL #### [address] [address] Developing Machine Operator: Nhan Mast MD Hematocrit (Bld) [Volume fraction] 38.9 % Low 40.7-50.3 [facility] Comment on above: Performed By: #### B PROJECT DEVELOPMENT COORDINATOR, TROPI, LACDS, PT, CMPX, CDP, MG, PRCAL #### [address] [address] Developing Machine Operator: Nhan Mast MD Hemoglobin (Bld) [Mass/Vol] 11.7 g/dL Low 13.0-17.0 [facility] Comment on above: Performed By: #### B PROJECT DEVELOPMENT COORDINATOR, TROPI, LACDS, PT, CMPX, CDP, MG, PRCAL #### [address] [address] Developing Machine Operator: Nhan Mast MD MCH (RBC) [Entitic mass] 27.3 pg Normal 25.2-33.5 [facility] Comment on above: Performed By: #### B PROJECT DEVELOPMENT COORDINATOR, TROPI, LACDS, PT, CMPX, CDP, MG, PRCAL #### [address] [phone] Developing Machine Operator: Nhan Mast MD MCHC (RBC) [Mass/Vol] 30.1 g/dL Normal 28.4-34.8 [facility] Comment on above: Performed By: #### B PROJECT DEVELOPMENT COORDINATOR, TROPI, LACDS, PT, CMPX, CDP, MG, PRCAL #### [address] [address] Developing Machine Operator: Nhan Mast MD MCV (RBC) [Entitic vol] 90.7 fL Normal 82.6-102.9 M [facility] Comment on above: Performed By: #### B PROJECT DEVELOPMENT COORDINATOR, TROPI, LACDS, PT, CMPX, CDP, MG, PRCAL #### [address] [address] Developing Machine Operator: Nhan Mast MD NRBC Automated 0.0 per 100 WBC Normal 0.0 [facility] Comment on above: Performed By: #### B PROJECT DEVELOPMENT COORDINATOR, TROPI, LACDS, PT, CMPX, CDP, MG, PRCAL #### [address] [address] Developing Machine Operator: Nhan Mast MD Platelet mean volume (Bld) [Entitic vol] 10.7 fL Normal 8.1-13.5 [facility] Comment on above: Performed By: #### B PROJECT DEVELOPMENT COORDINATOR, TROPI, LACDS, PT, CMPX, CDP, MG, PRCAL #### [address] [address] Developing Machine Operator: Nhan Mast MD Platelets (Bld) [#/Vol] 346 10*3/uL Normal 138-453 [facility] Comment on above: Performed By: #### B PROJECT DEVELOPMENT COORDINATOR, TROPI, LACDS, PT, CMPX, CDP, MG, PRCAL #### [address] [address] Developing Machine Operator: Nhan Mast MD RBC (Bld) [#/Vol] 4.29 10*6/uL Normal 4.21-5.77 [facility] Comment on above: Performed By: #### B PROJECT DEVELOPMENT COORDINATOR, TROPI, LACDS, PT, CMPX, CDP, MG, PRCAL #### [address] [address] Developing Machine Operator: Nhan Mast MD WBC (Bld) [#/Vol] 4.7 10*3/uL Normal 3.5-11.3 [facility] Comment on above: Performed By: #### B PROJECT DEVELOPMENT COORDINATOR, TROPI, LACDS, PT, CMPX, CDP, MG, PRCAL #### [facility] [address] [place] [address] Developing Machine Operator: Nhan Mast MD CBCOrdered By: Jesus Forrest on on 09-04-2020 Hematocrit (Bld) [Volume fraction] 38.9 % Low 40.7 - 50.3 % [employer] Phone: Hemoglobin.gastrointest inal spec 1 Ql (Stl) 11.7 g/dL Low 13.0 - 17.0 g/dL [employer] Phone: Interpretation and review of laboratory results Abnormal [employer] Phone: MCH (RBC) [Entitic mass] 27.3 pg 25.2 - 33.5 pg [employer] Phone: MCHC (RBC) [Mass/Vol] 30.1 g/dL 28.4 - 34.8 g/dL [employer] Phone: MCV (RBC) [Entitic vol] 90.7 fL 82.6 - 102.9 fL [employer] Phone: NRBC Automated 0.0 0.0 per 100 WBC [employer] Phone: Platelet distribution width (Bld) [Ratio] 15.3 % High 11.8 - 14.4 % [employer] Phone: Platelet mean volume (Bld) [Entitic vol] 10.7 fL 8.1 - 13.5 fL [employer] Phone: Platelets (Bld) [#/Vol] 346 10*3/uL [employer] Phone: RBC (Bld) [#/Vol] 4.29 10*6/uL 4.21 - 5.7 7 m/uL [employer] Phone: WBC (Bld) [#/Vol] 4.7 10*3/uL [employer] Phone: [employer] Phone: Culture, Blood 2Ordered By: Alexis Ramon on 09-04-2020 Bacteria identified Cx Nom (Unsp spec) NO GROWTH 5 DAYS [employer] Phone: Special Requests R H 10 ML [employer] Phone: Specimen Description .BLOOD [employer] Phone: [employer] Phone: HEPATIC FUNCTION PANELOrdere d By: Jesus Poe on 09-04-2020 Albumin [Mass/Vol] 2.5 g/dL Low 3.5 - 5.2 g/dL [employer] Phone: Albumin/Globulin [Mass ratio] 0.8 {ratio} Low [employer] Phone: ALP (Bld) [Catalytic activity/Vol] 234 U/L High 40 - 129 U/L [employer] Phone: ALT [Catalytic activity/Vol] 35 U/L 5 - 41 U/L [employer] Phone: AST [Catalytic activity/Vol] 39 U/L <40 [employer] Phone: Bilirubin [Mass/Vol] 1.70 mg/dL High 0.3 - 1 .2 mg/dL [employer] Phone: Bilirubin, Indirect 0.77 mg/dL 0.00 - 1 .00 mg/dL [employer] Phone: Bilirubin.indirect [Mass/Vol] 0.93 mg/dL High <0.31 [employer] Phone: Free PSA/Total PSA [Mass fraction] 5.6 g/dL Low 6.4 - 8.3 g/dL [employer] Phone: Globulin NOT REPORTED 1.5 - 3.8 g/dL [employer] Phone: Interpretation and review of laboratory results Abnormal [employer] Phone: [employer] Phone: Liver Profileon 09-04-2020 Bilirubin, Indirect 0.77 mg/dL Normal 0.00-1.00 [facility] Comment on above: Performed By: #### B PROJECT DEVELOPMENT COORDINATOR, TROPI, LACDS, PT, CMPX, CDP, MG, PRCAL #### [facility] [address] [place] [phone] Developing Machine Operator: Nhan Mast MD Bilirubin.indirect [Mass/Vol] 0.93 mg/dL High <0.31 [facility] Comment on above: Performed By: #### B PROJECT DEVELOPMENT COORDINATOR, TROPI, LACDS, PT, CMPX, CDP, MG, PRCAL #### [facility] [address] [place] [phone] Developing Machine Operator: Nhan Mast MD Albumin [Mass/Vol] 2.5 g/dL Low 3.5-5.2 [facility] Comment on above: Performed By: #### B PROJECT DEVELOPMENT COORDINATOR, TROPI, LACDS, PT, CMPX, CDP, MG, PRCAL #### [facility] [address] [place] [phone] Developing Machine Operator: Nhan Mast MD Albumin/Glob Ratio 0.8 Low 1.0-2.5 [facility] Comment on above: Performed By: #### B PROJECT DEVELOPMENT COORDINATOR, TROPI, LACDS, PT, CMPX, CDP, MG, PRCAL #### [facility] [address] [place] [address] Developing Machine Operator: Nhan Mast MD Alkaline Phos 234 U/L High 40-129 [facility] Comment on above: Performed By: #### B PROJECT DEVELOPMENT COORDINATOR, TROPI, LACDS, PT, CMPX, CDP, MG, PRCAL #### [address] [address] Developing Machine Operator: Nhan Mast MD ALT [Catalytic activity/Vol] 35 U/L Normal 5-41 [facility] Comment on above: Performed By: #### B PROJECT DEVELOPMENT COORDINATOR, TROPI, LACDS, PT, CMPX, CDP, MG, PRCAL #### [address] [address] Developing Machine Operator: Nhan Mast MD AST [Catalytic activity/Vol] 39 U/L Normal <40 [facility] Comment on above: Performed By: #### B PROJECT DEVELOPMENT COORDINATOR, TROPI, LACDS, PT, CMPX, CDP, MG, PRCAL #### [address] [address] Developing Machine Operator: Nhan Mast MD Bilirubin [Mass/Vol] 1.70 mg/dL High 0.3-1.2 [facility] Comment on above: Performed By: #### B PROJECT DEVELOPMENT COORDINATOR, TROPI, LACDS, PT, CMPX, CDP, MG, PRCAL #### [address] [address] Developing Machine Operator: Nhan Mast MD Protein [Mass/Vol] 5.6 g/dL Low 6.4-8.3 [facility] Comment on above: Performed By: #### B PROJECT DEVELOPMENT COORDINATOR, TROPI, LACDS, PT, CMPX, CDP, MG, PRCAL #### [address] [address] Developing Machine Operator: Nhan Mast MD Globulin Fraction NOT REPORTED Normal 1.5-3.8 [facility] Comment on above: Performed By: #### B PROJECT DEVELOPMENT COORDINATOR, TROPI, LACDS, PT, CMPX, CDP, MG, PRCAL #### [facility] [address] [place], [place] [phone] Developing Machine Operator: Nhan Mast MD Magnesiumon 09-04-2020 Magnesium [Mass/Vol] 1.8 mg/dL Normal 1.6-2.6 [facility] Comment on above: Performed By: #### B PROJECT DEVELOPMENT COORDINATOR, TROPI, LACDS, PT, CMPX, CDP, MG, PRCAL #### [facility] [address] [place] [address] Developing Machine Operator: Nhan Mast MD MagnesiumOrdered By: Jesus Poe on 09-04-2020 Magnesium [Mass/Vol] 1.8 mg/dL 1.6 - 2 .6 mg/dL [employer] Phone: [employer] Phone: POC Glucose FingerstickOrder ed By: Harvey Dotson on 09-04-2020 Glucose [Mass/Vol] 322 mg/dL High 75 - 110 mg/dL [employer] Phone: Interpretation and review of laboratory results Abnormal [employer] Phone: [employer] Phone: Glucose [Mass/Vol] 341 mg/dL High 75 - 110 mg/dL [employer] Phone: Interpretation and review of laboratory results Abnormal [employer] Phone: [employer] Phone: Glucose [Mass/Vol] 352 mg/dL High 75 - 110 mg/dL [employer] Phone: Interpretation and review of laboratory results Abnormal [employer] Phone: [employer] Phone: Glucose [Mass/Vol] 271 mg/dL High 75 - 110 mg/dL [employer] Phone: Interpretation and review of laboratory results Abnormal [employer] Phone: [employer] Phone: PROTIME-INROrdered By: Margi Dotson on 09-04-2020 INR Coag (Bld) [Relative time] 1.0 {INR} [employer] Phone: PT Coag (PPP) [Time] 10.4 s [facility] Phone: [employer] Phone: PTon 09-04-2020 INR Coag (PPP) [Relative time] 1.0 {INR} Normal [facility] Comment on above: Result Comment: Therapeutic Range: Moderate Anticoagulant Intensity: INR = 2.0-3.0 High Anticoagulant Intensity: INR = 2.5-3.5 Performed By: #### B PROJECT DEVELOPMENT COORDINATOR, TROPI, LACDS, PT, CMPX, CDP, MG, PRCAL #### [facility] [address] [place] [phone] Developing Machine Operator: Nhan Mast MD PT Coag (PPP) [Time] 10.4 s Normal 9.1-12.3 [facility] Comment on above: Performed By: #### B PROJECT DEVELOPMENT COORDINATOR, TROPI, LACDS, PT, CMPX, CDP, MG, PRCAL #### [facility] [address] [place] [phone] Developing Machine Operator: Nhan Mast MD ProcalcitoninOrdered By: Mihaela Poe on 09-04-2020 Interpretation and review of laboratory results Abnormal [employer] Phone: Procalcitonin 0.57 ng/mL High <0.09 [employer] Phone: [employer] Phone: CBCon 09-03-2020 Erythrocyte distribution width (RBC) [Ratio] 15.6 % High 11.8-14.4 [facility] Comment on above: Performed By: #### B PROJECT DEVELOPMENT COORDINATOR, TROPI, LACDS, PT, CMPX, CDP, MG, PRCAL #### [address] [address] Developing Machine Operator: Nhan Mast MD Hematocrit (Bld) [Volume fraction] 42.7 % Normal 40.7-50.3 [facility] Comment on above: Performed By: #### B PROJECT DEVELOPMENT COORDINATOR, TROPI, LACDS, PT, CMPX, CDP, MG, PRCAL #### [address] [address] Developing Machine Operator: Nhan aMst MD Hemoglobin (Bld) [Mass/Vol] 12.9 g/dL Low 13.0-17.0 [facility] Comment on above: Performed By: #### B PROJECT DEVELOPMENT COORDINATOR, TROPI, LACDS, PT, CMPX, CDP, MG, PRCAL #### [place] [address] Developing Machine Operator: Nhan Mast MD MCH (RBC) [Entitic mass] 27.7 pg Normal 25.2-33.5 [facility] Comment on above: Performed By: #### B PROJECT DEVELOPMENT COORDINATOR, TROPI, LACDS, PT, CMPX, CDP, MG, PRCAL #### [address] [phone] Developing Machine Operator: Nhan Mast MD MCHC (RBC) [Mass/Vol] 30.2 g/dL Normal 28.4-34.8 [facility] Comment on above: Performed By: #### B PROJECT DEVELOPMENT COORDINATOR, TROPI, LACDS, PT, CMPX, CDP, MG, PRCAL #### [address] [phone] Developing Machine Operator: Nhan Mast MD MCV (RBC) [Entitic vol] 91.6 fL Normal 82.6-102.9 M [facility] Comment on above: Performed By: #### B PROJECT DEVELOPMENT COORDINATOR, TROPI, LACDS, PT, CMPX, CDP, MG, PRCAL #### [address] [address] Developing Machine Operator: Nhan Mast MD NRBC Automated 0.0 per 100 WBC Normal 0.0 [facility] Comment on above: Performed By: #### B PROJECT DEVELOPMENT COORDINATOR, TROPI, LACDS, PT, CMPX, CDP, MG, PRCAL #### [address] [address] Developing Machine Operator: Nhan Mast MD Platelet mean volume (Bld) [Entitic vol] 11.5 fL Normal 8.1-13.5 [facility] Comment on above: Performed By: #### B PROJECT DEVELOPMENT COORDINATOR, TROPI, LACDS, PT, CMPX, CDP, MG, PRCAL #### [address] [address] Developing Machine Operator: Nhan Mast MD Platelets (Bld) [#/Vol] 147 10*3/uL Normal 138-453 [facility] Comment on above: Performed By: #### B PROJECT DEVELOPMENT COORDINATOR, TROPI, LACDS, PT, CMPX, CDP, MG, PRCAL #### [address] [address] Developing Machine Operator: Nhan Mast MD RBC (Bld) [#/Vol] 4.66 10*6/uL Normal 4.21-5.77 [facility] Comment on above: Performed By: #### B PROJECT DEVELOPMENT COORDINATOR, TROPI, LACDS, PT, CMPX, CDP, MG, PRCAL #### [address] [address] Developing Machine Operator: Nhan Mast MD WBC (Bld) [#/Vol] 5.0 10*3/uL Normal 3.5-11.3 [facility] Comment on above: Performed By: #### B PROJECT DEVELOPMENT COORDINATOR, TROPI, LACDS, PT, CMPX, CDP, MG, PRCAL #### [facility] [address] [place] [address] Developing Machine Operator: Nhan Mast MD CBCOrdered By: Jesus Forrest on on 09-03-2020 Hematocrit (Bld) [Volume fraction] 42.7 % 40.7 - 50.3 % [employer] Phone: Hemoglobin.gastrointest inal spec 1 Ql (Stl) 12.9 g/dL Low 13.0 - 17.0 g/dL [employer] Phone: Interpretation and review of laboratory results Abnormal [employer] Phone: MCH (RBC) [Entitic mass] 27.7 pg 25.2 - 33.5 pg [employer] Phone: MCHC (RBC) [Mass/Vol] 30.2 g/dL 28.4 - 34.8 g/dL [employer] Phone: MCV (RBC) [Entitic vol] 91.6 fL 82.6 - 102.9 fL [employer] Phone: NRBC Automated 0.0 0.0 per 100 WBC [employer] Phone: Platelet distribution width (Bld) [Ratio] 15.6 % High 11.8 - 14.4 % [employer] Phone: Platelet mean volume (Bld) [Entitic vol] 11.5 fL 8.1 - 13.5 fL [employer] Phone: Platelets (Bld) [#/Vol] 147 10*3/uL [employer] Phone: RBC (Bld) [#/Vol] 4.66 10*6/uL 4.21 - 5.7 7 m/uL [employer] Phone: WBC (Bld) [#/Vol] 5.0 10*3/uL [employer] Phone: Arrayit Phone: HEPATIC FUNCTION PANELOrdere d By: Jesus Poe on 09-03-2020 Albumin [Mass/Vol] 2.4 g/dL Low 3.5 - 5.2 g/dL [employer] Phone: Albumin/Globulin [Mass ratio] 0.7 {ratio} Low [employer] Phone: ALP (Bld) [Catalytic activity/Vol] 257 U/L High 40 - 129 U/L [employer] Phone: ALT [Catalytic activity/Vol] 33 U/L 5 - 41 U/L [employer] Phone: AST [Catalytic activity/Vol] 41 U/L High <40 [employer] Phone: Bilirubin [Mass/Vol] 2.04 mg/dL High 0.3 - 1 .2 mg/dL [employer] Phone: Bilirubin, Indirect 1.03 mg/dL High 0.00 - 1 .00 mg/dL [employer] Phone: Bilirubin.indirect [Mass/Vol] 1.01 mg/dL High <0.31 [employer] Phone: Free PSA/Total PSA [Mass fraction] 5.7 g/dL Low 6.4 - 8.3 g/dL [employer] Phone: Globulin NOT REPORTED 1.5 - 3.8 g/dL [employer] Phone: Interpretation and review of laboratory results Abnormal [employer] Phone: Array[employer] Phone: Liver Profileon 09-03-2020 AST [Catalytic activity/Vol] 41 U/L High <40 [facility] Comment on above: Performed By: #### B PROJECT DEVELOPMENT COORDINATOR, TROPI, LACDS, PT, CMPX, CDP, MG, PRCAL #### [facility] [employer] [address] [place] [address] Developing Machine Operator: Nhan Mast MD Bilirubin, Indirect 1.03 mg/dL High 0.00-1.00 [facility] Comment on above: Performed By: #### B PROJECT DEVELOPMENT COORDINATOR, TROPI, LACDS, PT, CMPX, CDP, MG, PRCAL #### [address] [address] Developing Machine Operator: Nhan Mast MD Bilirubin.indirect [Mass/Vol] 1.01 mg/dL High <0.31 [facility] Comment on above: Performed By: #### B PROJECT DEVELOPMENT COORDINATOR, TROPI, LACDS, PT, CMPX, CDP, MG, PRCAL #### [address] [address] Developing Machine Operator: Nhan Mast MD Albumin [Mass/Vol] 2.4 g/dL Low 3.5-5.2 [facility] Comment on above: Performed By: #### B PROJECT DEVELOPMENT COORDINATOR, TROPI, LACDS, PT, CMPX, CDP, MG, PRCAL #### [address] [address] Developing Machine Operator: Nhan Mast MD Albumin/Glob Ratio 0.7 Low 1.0-2.5 [facility] Comment on above: Performed By: #### B PROJECT DEVELOPMENT COORDINATOR, TROPI, LACDS, PT, CMPX, CDP, MG, PRCAL #### [address] [address] Developing Machine Operator: Nhan Mast MD Alkaline Phos 257 U/L High 40-129 [facility] Comment on above: Performed By: #### B PROJECT DEVELOPMENT COORDINATOR, TROPI, LACDS, PT, CMPX, CDP, MG, PRCAL #### [address] [address] Developing Machine Operator: Nhan Mast MD ALT [Catalytic activity/Vol] 33 U/L Normal 5-41 [facility] Comment on above: Performed By: #### B PROJECT DEVELOPMENT COORDINATOR, TROPI, LACDS, PT, CMPX, CDP, MG, PRCAL #### [address] [address] Developing Machine Operator: Nhan Mast MD Bilirubin [Mass/Vol] 2.04 mg/dL High 0.3-1.2 [facility] Comment on above: Performed By: #### B PROJECT DEVELOPMENT COORDINATOR, TROPI, LACDS, PT, CMPX, CDP, MG, PRCAL #### [address] [address] Developing Machine Operator: Nhan Mast MD Protein [Mass/Vol] 5.7 g/dL Low 6.4-8.3 [facility] Comment on above: Performed By: #### B PROJECT DEVELOPMENT COORDINATOR, TROPI, LACDS, PT, CMPX, CDP, MG, PRCAL #### [address] [address] Developing Machine Operator: Nhan Mast MD Globulin Fraction NOT REPORTED Normal 1.5-3.8 [facility] Comment on above: Performed By: #### B PROJECT DEVELOPMENT COORDINATOR, TROPI, LACDS, PT, CMPX, CDP, MG, PRCAL #### [address] [address] Developing Machine Operator: Nhan Mast MD Magnesiumon 09-03-2020 Magnesium [Mass/Vol] 2.0 mg/dL Normal 1.6-2.6 [facility] Comment on above: Performed By: #### B PROJECT DEVELOPMENT COORDINATOR, TROPI, LACDS, PT, CMPX, CDP, MG, PRCAL #### [address] [address] Developing Machine Operator: Nhan Mast MD MagnesiumOrdered By: Jesus Poe on 09-03-2020 Magnesium [Mass/Vol] 2.0 mg/dL 1.6 - 2 .6 mg/dL [employer] Phone: Arrayit Phone: POC Glucose FingerstickOrder ed By: Harvey Dotson on 09-03-2020 Glucose [Mass/Vol] 215 mg/dL High 75 - 110 mg/dL [employer] Phone: Interpretation and review of laboratory results Abnormal [employer] Phone: Arrayit Phone: Glucose [Mass/Vol] 232 mg/dL High 75 - 110 mg/dL [employer] Phone: Interpretation and review of laboratory results Abnormal [employer] Phone: Arrayit Phone: Glucose [Mass/Vol] 272 mg/dL High 75 - 110 mg/dL [employer] Phone: Interpretation and review of laboratory results Abnormal [employer] Phone: Arrayit Phone: [phone] Glucose [Mass/Vol] 242 mg/dL High 75 - 110 mg/dL [employer] Phone: Interpretation and review of laboratory results Abnormal [employer] Phone: Arrayit Phone: CBCon 09-02-2020 Erythrocyte distribution width (RBC) [Ratio] 16.2 % High 11.8-14.4 [facility] Comment on above: Performed By: #### B PROJECT DEVELOPMENT COORDINATOR, TROPI, LACDS, PT, CMPX, CDP, MG, PRCAL #### [facility] [place] [address] Developing Machine Operator: Nhan Mast MD Hematocrit (Bld) [Volume fraction] 38.9 % Low 40.7-50.3 [facility] Comment on above: Performed By: #### B PROJECT DEVELOPMENT COORDINATOR, TROPI, LACDS, PT, CMPX, CDP, MG, PRCAL #### [address] [address] Developing Machine Operator: Nhan Mast MD Hemoglobin (Bld) [Mass/Vol] 11.4 g/dL Low 13.0-17.0 [facility] Comment on above: Performed By: #### B PROJECT DEVELOPMENT COORDINATOR, TROPI, LACDS, PT, CMPX, CDP, MG, PRCAL #### [address] [address] Developing Machine Operator: Nhan Mast MD MCH (RBC) [Entitic mass] 27.7 pg Normal 25.2-33.5 [facility] Comment on above: Performed By: #### B PROJECT DEVELOPMENT COORDINATOR, TROPI, LACDS, PT, CMPX, CDP, MG, PRCAL #### [address] [id number] Developing Machine Operator: Nhan Mast MD MCHC (RBC) [Mass/Vol] 29.3 g/dL Normal 28.4-34.8 [facility] Comment on above: Performed By: #### B PROJECT DEVELOPMENT COORDINATOR, TROPI, LACDS, PT, CMPX, CDP, MG, PRCAL #### [address] [id number] Developing Machine Operator: Nhan Mast MD MCV (RBC) [Entitic vol] 94.6 fL Normal 82.6-102.9 [facility] Comment on above: Performed By: #### B PROJECT DEVELOPMENT COORDINATOR, TROPI, LACDS, PT, CMPX, CDP, MG, PRCAL #### [address] [id number] Developing Machine Operator: Nhan Mast MD NRBC Automated 0.0 per 100 WBC Normal 0.0 [facility] Comment on above: Performed By: #### B PROJECT DEVELOPMENT COORDINATOR, TROPI, LACDS, PT, CMPX, CDP, MG, PRCAL #### [address] [address] Developing Machine Operator: Nhan Mast MD Platelet mean volume (Bld) [Entitic vol] 10.3 fL Normal 8.1-13.5 [facility] Comment on above: Performed By: #### B PROJECT DEVELOPMENT COORDINATOR, TROPI, LACDS, PT, CMPX, CDP, MG, PRCAL #### [address] [address] Developing Machine Operator: Nhan Mast MD Platelets (Bld) [#/Vol] 279 10*3/uL Normal 138-453 [facility] Comment on above: Performed By: #### B PROJECT DEVELOPMENT COORDINATOR, TROPI, LACDS, PT, CMPX, CDP, MG, PRCAL #### [address] [address] Developing Machine Operator: Nhan Mast MD RBC (Bld) [#/Vol] 4.11 10*6/uL Low 4.21-5.77 [facility] Comment on above: Performed By: #### B PROJECT DEVELOPMENT COORDINATOR, TROPI, LACDS, PT, CMPX, CDP, MG, PRCAL #### [address] [address] Developing Machine Operator: Nhan Msat MD WBC (Bld) [#/Vol] 4.9 10*3/uL Normal 3.5-11.3 [facility] Comment on above: Performed By: #### B PROJECT DEVELOPMENT COORDINATOR, TROPI, LACDS, PT, CMPX, CDP, MG, PRCAL #### [address] [address] Developing Machine Operator: Nhan Mast MD Erythrocyte distribution width (RBC) [Ratio] 16.2 % High 11.8-14.4 [facility] Comment on above: Performed By: #### B PROJECT DEVELOPMENT COORDINATOR, TROPI, LACDS, PT, CMPX, CDP, MG, PRCAL #### [address] [address] Developing Machine Operator: Nhan Mast MD Hematocrit (Bld) [Volume fraction] 39.2 % Low 40.7-50.3 [facility] Comment on above: Performed By: #### B PROJECT DEVELOPMENT COORDINATOR, TROPI, LACDS, PT, CMPX, CDP, MG, PRCAL #### [address] [address] Developing Machine Operator: Nhan Mast MD Hemoglobin (Bld) [Mass/Vol] 12.3 g/dL Low 13.0-17.0 [facility] Comment on above: Performed By: #### B PROJECT DEVELOPMENT COORDINATOR, TROPI, LACDS, PT, CMPX, CDP, MG, PRCAL #### [address] [address] Developing Machine Operator: Nhan Mast MD MCH (RBC) [Entitic mass] 27.8 pg Normal 25.2-33.5 [facility] Comment on above: Performed By: #### B PROJECT DEVELOPMENT COORDINATOR, TROPI, LACDS, PT, CMPX, CDP, MG, PRCAL #### [address] [address] Developing Machine Operator: Nhan Mast MD MCHC (RBC) [Mass/Vol] 31.4 g/dL Normal 28.4-34.8 [facility] Comment on above: Performed By: #### B PROJECT DEVELOPMENT COORDINATOR, TROPI, LACDS, PT, CMPX, CDP, MG, PRCAL #### [address] [address] Developing Machine Operator: Nhan Mast MD MCV (RBC) [Entitic vol] 88.7 fL Normal 82.6-102.9 [facility] Comment on above: Performed By: #### B PROJECT DEVELOPMENT COORDINATOR, TROPI, LACDS, PT, CMPX, CDP, MG, PRCAL #### [address] [address] Developing Machine Operator: Nhan Mast MD NRBC Automated 0.0 per 100 WBC Normal 0.0 [facility] Comment on above: Performed By: #### B PROJECT DEVELOPMENT COORDINATOR, TROPI, LACDS, PT, CMPX, CDP, MG, PRCAL #### [address] [address] Developing Machine Operator: Nhan Mast MD Platelet mean volume (Bld) [Entitic vol] 10.7 fL Normal 8.1-13.5 [facility] Comment on above: Performed By: #### B PROJECT DEVELOPMENT COORDINATOR, TROPI, LACDS, PT, CMPX, CDP, MG, PRCAL #### [address] [address] Developing Machine Operator: Nhan Mast MD Platelets (Bld) [#/Vol] 215 10*3/uL Normal 138-453 [facility] Comment on above: Performed By: #### B PROJECT DEVELOPMENT COORDINATOR, TROPI, LACDS, PT, CMPX, CDP, MG, PRCAL #### [address] [address] Developing Machine Operator: Nhan Mast MD RBC (Bld) [#/Vol] 4.42 10*6/uL Normal 4.21-5.77 [facility] Comment on above: Performed By: #### B PROJECT DEVELOPMENT COORDINATOR, TROPI, LACDS, PT, CMPX, CDP, MG, PRCAL #### [address] [address] Developing Machine Operator: Nhan Mast MD WBC (Bld) [#/Vol] 6.3 10*3/uL Normal 3.5-11.3 [facility] Comment on above: Performed By: #### B PROJECT DEVELOPMENT COORDINATOR, TROPI, LACDS, PT, CMPX, CDP, MG, PRCAL #### [address] [address] Developing Machine Operator: Nhan Mast MD CBCOrdered By: Jesus Forrest on on 09-02-2020 Hematocrit (Bld) [Volume fraction] 38.9 % Low 40.7 - 50.3 % [employer] Phone: Hemoglobin.gastrointest inal spec 1 Ql (Stl) 11.4 g/dL Low 13.0 - 17.0 g/dL [employer] Phone: Interpretation and review of laboratory results Abnormal [employer] Phone: MCH (RBC) [Entitic mass] 27.7 pg 25.2 - 33.5 pg [employer] Phone: MCHC (RBC) [Mass/Vol] 29.3 g/dL 28.4 - 34.8 g/dL [employer] Phone: MCV (RBC) [Entitic vol] 94.6 fL 82.6 - 102.9 fL [employer] Phone: NRBC Automated 0.0 0.0 per 100 WBC [employer] Phone: Platelet distribution width (Bld) [Ratio] 16.2 % High 11.8 - 14.4 % [employer] Phone: Platelet mean volume (Bld) [Entitic vol] 10.3 fL 8.1 - 13.5 fL [employer] Phone: Platelets (Bld) [#/Vol] 279 10*3/uL [employer] Phone: RBC (Bld) [#/Vol] 4.11 10*6/uL Low 4.21 - 5.7 7 m/uL [employer] Phone: WBC (Bld) [#/Vol] 4.9 10*3/uL [employer] Phone: Array[employer] Phone: Cult,Bloodon 09-02-2020 Cult,Blood Specimen Description .BLOOD Special Requests L HAND TOP 2 ML Culture NO GROWTH 6 DAYS Report Status FINAL 09/02/2020 Normal [facility] Comment on above: Performed By: #### B PROJECT DEVELOPMENT COORDINATOR, TROPI, LACDS, PT, CMPX, CDP, MG, PRCAL #### [facility] [address] [place] [address] Developing Machine Operator: Nhan Mast MD Culture, Blood 1Ordered By: Jesus Poe on 09-02-2020 Bacteria identified Cx Nom (Unsp spec) NO GROWTH 6 DAYS [employer] Phone: Special Requests L HAND TOP 2 ML [facility] [employer] Work Phone: Specimen Description .BLOOD [employer] Phone: Arrayit Phone: HEPATIC FUNCTION PANELOrdere d By: Jesus Poe on 09-02-2020 Albumin [Mass/Vol] 2.2 g/dL Low 3.5 - 5.2 g/dL [employer] Phone: Albumin/Globulin [Mass ratio] 0.7 {ratio} Low [employer] Phone: ALP (Bld) [Catalytic activity/Vol] 254 U/L High 40 - 129 U/L [employer] Phone: ALT [Catalytic activity/Vol] 29 U/L 5 - 41 U/L [employer] Phone: AST [Catalytic activity/Vol] 33 U/L <40 [employer] Phone: Bilirubin [Mass/Vol] 1.96 mg/dL High 0.3 - 1 .2 mg/dL [employer] Phone: Bilirubin, Indirect 0.74 mg/dL 0.00 - 1 .00 mg/dL [employer] Phone: Bilirubin.indirect [Mass/Vol] 1.22 mg/dL High <0.31 [employer] Phone: Free PSA/Total PSA [Mass fraction] 5.4 g/dL Low 6.4 - 8.3 g/dL [employer] Phone: Globulin NOT REPORTED 1.5 - 3.8 g/dL [employer] Phone: Interpretation and review of laboratory results Abnormal [employer] Phone: Lactate, Sepsison 09-02-2020 Lactic Acid,Sep Wbld 1.2 mmol/L Normal 0.5-1.9 [facility] Comment on above: Performed By: #### B PROJECT DEVELOPMENT COORDINATOR, TROPI, LACDS, PT, CMPX, CDP, MG, PRCAL #### [facility] [address] [place] [phone] Developing Machine Operator: Nhan Mast MD Lactic Acid, Sepsis NOT REPORTED Normal 0.5-1.9 [facility] Comment on above: Performed By: #### B PROJECT DEVELOPMENT COORDINATOR, TROPI, LACDS, PT, CMPX, CDP, MG, PRCAL #### [facility] [address] [place] [address] [phone] Developing Machine Operator: Nhan Mast MD Lactic Acid,Sep Wbld 1.3 mmol/L Normal 0.5-1.9 [facility] Comment on above: Performed By: #### B PROJECT DEVELOPMENT COORDINATOR, TROPI, LACDS, PT, CMPX, CDP, MG, PRCAL #### [facility] [address] [place] [phone] Developing Machine Operator: Nhan Mast MD Lactic Acid, Sepsis NOT REPORTED Normal 0.5-1.9 [facility] Comment on above: Performed By: #### B PROJECT DEVELOPMENT COORDINATOR, TROPI, LACDS, PT, CMPX, CDP, MG, PRCAL #### [facility] [address] [place] [address] [phone] Developing Machine Operator: Nhan Mast MD Lactic Acid,Sep Wbld 2.5 mmol/L High 0.5-1.9 [facility] Comment on above: Performed By: #### B PROJECT DEVELOPMENT COORDINATOR, TROPI, LACDS, PT, CMPX, CDP, MG, PRCAL #### [facility] [address] [place], [place] [phone] Developing Machine Operator: Nhan Mast MD Lactic Acid, Sepsis NOT REPORTED Normal 0.5-1.9 [facility] Comment on above: Performed By: #### B PROJECT DEVELOPMENT COORDINATOR, TROPI, LACDS, PT, CMPX, CDP, MG, PRCAL #### [facility] [place] [address] Developing Machine Operator: Nhan Mast MD Lactate, SepsisOrdered By: Rolan Renee on 09-02-2020 Lactic Acid, Sepsis NOT REPORTED 0.5 - 1. 9 mmol/L [employer] Phone: Lactic Acid, Sepsis, Whole Blood 1.2 mmol/L 0.5 - 1.9 mmol/L [employer] Phone: Arrayit Phone: Lactic Acid, Sepsis NOT REPORTED 0.5 - 1. 9 mmol/L [employer] Phone: Lactic Acid, Sepsis, Whole Blood 1.3 mmol/L 0.5 - 1.9 mmol/L [employer] Phone: Arrayit Phone: Liver Profileon 09-02-2020 Albumin [Mass/Vol] 2.2 g/dL Low 3.5-5.2 [facility] Comment on above: Performed By: #### B PROJECT DEVELOPMENT COORDINATOR, TROPI, LACDS, PT, CMPX, CDP, MG, PRCAL #### [facility] [place], [place] [phone] Developing Machine Operator: Nhan Mast MD Albumin/Glob Ratio 0.7 Low 1.0-2.5 [facility] Comment on above: Performed By: #### B PROJECT DEVELOPMENT COORDINATOR, TROPI, LACDS, PT, CMPX, CDP, MG, PRCAL #### [address] [address] Developing Machine Operator: Nhan Mast MD Alkaline Phos 254 U/L High 40-129 [facility] Comment on above: Performed By: #### B PROJECT DEVELOPMENT COORDINATOR, TROPI, LACDS, PT, CMPX, CDP, MG, PRCAL #### [address] [address] Developing Machine Operator: Nhan Mast MD ALT [Catalytic activity/Vol] 29 U/L Normal 5-41 [facility] Comment on above: Performed By: #### B PROJECT DEVELOPMENT COORDINATOR, TROPI, LACDS, PT, CMPX, CDP, MG, PRCAL #### [address] [address] Developing Machine Operator: Nhan Mast MD AST [Catalytic activity/Vol] 33 U/L Normal <40 [facility] Comment on above: Performed By: #### B PROJECT DEVELOPMENT COORDINATOR, TROPI, LACDS, PT, CMPX, CDP, MG, PRCAL #### [address] [address] Developing Machine Operator: Nhan Mast MD Bilirubin [Mass/Vol] 1.96 mg/dL High 0.3-1.2 [facility] Comment on above: Performed By: #### B PROJECT DEVELOPMENT COORDINATOR, TROPI, LACDS, PT, CMPX, CDP, MG, PRCAL #### [address] [address] Developing Machine Operator: Nhan Mast MD Bilirubin, Indirect 0.74 mg/dL Normal 0.00-1.00 [facility] Comment on above: Performed By: #### B PROJECT DEVELOPMENT COORDINATOR, TROPI, LACDS, PT, CMPX, CDP, MG, PRCAL #### [address] [place] [address] Developing Machine Operator: Nhan Mast MD Bilirubin.indirect [Mass/Vol] 1.22 mg/dL High <0.31 [facility] Comment on above: Performed By: #### B PROJECT DEVELOPMENT COORDINATOR, TROPI, LACDS, PT, CMPX, CDP, MG, PRCAL #### [facility] [employer] [facility] [place] [address] Developing Machine Operator: Nhan Mast MD Protein [Mass/Vol] 5.4 g/dL Low 6.4-8.3 [facility] Comment on above: Performed By: #### B PROJECT DEVELOPMENT COORDINATOR, TROPI, LACDS, PT, CMPX, CDP, MG, PRCAL #### [facility] [employer] [address] [place] [phone] Developing Machine Operator: Nhan Mast MD Globulin Fraction NOT REPORTED Normal 1.5-3.8 [facility] Comment on above: Performed By: #### B PROJECT DEVELOPMENT COORDINATOR, TROPI, LACDS, PT, CMPX, CDP, MG, PRCAL #### [facility] [employer] [address] [place] [address] Developing Machine Operator: Nhan Mast MD Magnesiumon 09-02-2020 Magnesium [Mass/Vol] 1.8 mg/dL Normal 1.6-2.6 [facility] Comment on above: Performed By: #### B PROJECT DEVELOPMENT COORDINATOR, TROPI, LACDS, PT, CMPX, CDP, MG, PRCAL #### [facility] [employer] [address] [place] [phone] Developing Machine Operator: Nhan Mast MD MagnesiumOrdered By: Jesus Poe on 09-02-2020 Magnesium [Mass/Vol] 1.8 mg/dL 1.6 - 2 .6 mg/dL [employer] Phone: No Panel InformationOrdered By: Jesus Poe on 09-02-2020 [employer] Phone: POC Glucose FingerstickOrder ed By: Harvey Dotson on 09-02-2020 Glucose [Mass/Vol] 292 mg/dL High 75 - 110 mg/dL [employer] Phone: Interpretation and review of laboratory results Abnormal [employer] Phone: [employer] Phone: Glucose [Mass/Vol] 285 mg/dL High 75 - 110 mg/dL [employer] Phone: Interpretation and review of laboratory results Abnormal [employer] Phone: [employer] Phone: Glucose [Mass/Vol] 287 mg/dL High 75 - 110 mg/dL [employer] Phone: Interpretation and review of laboratory results Abnormal [employer] Phone: [employer] Phone: Glucose [Mass/Vol] 247 mg/dL High 75 - 110 mg/dL [employer] Phone: Interpretation and review of laboratory results Abnormal [employer] Phone: [employer] Phone: Procalcitoninon 09-02-2020 Procalcitonin 1.53 ng/mL High <0.09 [facility] Comment on above: Result Comment: Suspected Sepsis: <0.50 ng/mL Low likelihood of sepsis. 0.50-2.00 ng/mL Increased likelihood of sepsis. Antibiotics encouraged. >2.00 ng/mL High risk of sepsis/shock. Antibiotics strongly encouraged. Suspected Lower Resp Tract Infections: <0.24 ng/mL Low likelihood of bacterial infection. >0.24 ng/mL Increased likelihood of bacterial infection. Antibiotics encouraged. With successful antibiotic therapy, PCT levels should decrease rapidly. (Half-life of 24 to 36 hours.) Procalcitonin values from samples collected within the first 6 hours of systemic infection may still be low. Retesting may be indicated. Values from day 1 and day 4 can be entered into the Change in Procalcitonin Calculator (www.escxyz-ybv-gauziwvgdz.com) to determine the patient's Mortality Risk Prognosis In healthy neonates, plasma Procalcitonin (PCT) concentrations increase gradually after , reaching peak values at about 24 hours of age then decrease to normal values below 0.5 ng/mL by 48-72 hours of age. Performed By: #### B PROJECT DEVELOPMENT COORDINATOR, TROPI, LACDS, PT, CMPX, CDP, MG, PRCAL #### [facility] [place] [address] Developing Machine Operator: Nhan Mast MD ProcalcitoninOrdered By: Mihaela Poe on 09-02-2020 Interpretation and review of laboratory results Abnormal [employer] Phone: Procalcitonin 1.53 ng/mL High <0.09 [employer] Phone: [employer] Phone: CBCOrdered By: Estephanie Renee on 09-01-2020 Hematocrit (Bld) [Volume fraction] 39.2 % Low 40.7 - 50.3 % [employer] Phone: Hemoglobin.gastrointest inal spec 1 Ql (Stl) 12.3 g/dL Low 13.0 - 17.0 g/dL [employer] Phone: Interpretation and review of laboratory results Abnormal [employer] Phone: MCH (RBC) [Entitic mass] 27.8 pg 25.2 - 33.5 pg [employer] Phone: MCHC (RBC) [Mass/Vol] 31.4 g/dL 28.4 - 34.8 g/dL [employer] Phone: MCV (RBC) [Entitic vol] 88.7 fL 82.6 - 102.9 fL [employer] Phone: NRBC Automated 0.0 0.0 per 100 WBC [employer] Phone: Platelet distribution width (Bld) [Ratio] 16.2 % High 11.8 - 14.4 % [employer] Phone: Platelet mean volume (Bld) [Entitic vol] 10.7 fL 8.1 - 13.5 fL [employer] Phone: Platelets (Bld) [#/Vol] 215 10*3/uL [employer] Phone: RBC (Bld) [#/Vol] 4.42 10*6/uL 4.21 - 5.7 7 m/uL [employer] Phone: WBC (Bld) [#/Vol] 6.3 10*3/uL [employer] Phone: [employer] Phone: CBCon 09-01-2020 Erythrocyte distribution width (RBC) [Ratio] 16.8 % High 11.8-14.4 [facility] Comment on above: Performed By: #### B PROJECT DEVELOPMENT COORDINATOR, TROPI, LACDS, PT, CMPX, CDP, MG, PRCAL #### [facility] [address] [place] [address] Developing Machine Operator: Nhan Mast MD Hematocrit (Bld) [Volume fraction] 39.3 % Low 40.7-50.3 [facility] Comment on above: Performed By: #### B PROJECT DEVELOPMENT COORDINATOR, TROPI, LACDS, PT, CMPX, CDP, MG, PRCAL #### [facility] [place] [address] Developing Machine Operator: Nhan Mast MD Hemoglobin (Bld) [Mass/Vol] 11.6 g/dL Low 13.0-17.0 [facility] Comment on above: Performed By: #### B PROJECT DEVELOPMENT COORDINATOR, TROPI, LACDS, PT, CMPX, CDP, MG, PRCAL #### [facility] [address] [place] [id number] Developing Machine Operator: Nhan Mast MD MCH (RBC) [Entitic mass] 27.4 pg Normal 25.2-33.5 [facility] Comment on above: Performed By: #### B PROJECT DEVELOPMENT COORDINATOR, TROPI, LACDS, PT, CMPX, CDP, MG, PRCAL #### [address] [phone] Developing Machine Operator: Nhan Mast MD MCHC (RBC) [Mass/Vol] 29.5 g/dL Normal 28.4-34.8 [facility] Comment on above: Performed By: #### B PROJECT DEVELOPMENT COORDINATOR, TROPI, LACDS, PT, CMPX, CDP, MG, PRCAL #### [address] [address] Developing Machine Operator: Nhan Mast MD MCV (RBC) [Entitic vol] 92.7 fL Normal 82.6-102.9 [facility] Comment on above: Performed By: #### B PROJECT DEVELOPMENT COORDINATOR, TROPI, LACDS, PT, CMPX, CDP, MG, PRCAL #### [place] [address] Developing Machine Operator: Nhan Mast MD NRBC Automated 0.0 per 100 WBC Normal 0.0 [facility] Comment on above: Performed By: #### B PROJECT DEVELOPMENT COORDINATOR, TROPI, LACDS, PT, CMPX, CDP, MG, PRCAL #### [address] [address] Developing Machine Operator: Nhan Mast MD Platelet mean volume (Bld) [Entitic vol] 10.5 fL Normal 8.1-13.5 [facility] Comment on above: Performed By: #### B PROJECT DEVELOPMENT COORDINATOR, TROPI, LACDS, PT, CMPX, CDP, MG, PRCAL #### [address] [phone] Developing Machine Operator: Nhan Mast MD Platelets (Bld) [#/Vol] 164 10*3/uL Normal 138-453 [facility] Comment on above: Performed By: #### B PROJECT DEVELOPMENT COORDINATOR, TROPI, LACDS, PT, CMPX, CDP, MG, PRCAL #### [facility] [address] [place], [place] [phone] Developing Machine Operator: Nhan Mast MD RBC (Bld) [#/Vol] 4.24 10*6/uL Normal 4.21-5.77 [facility] Comment on above: Performed By: #### B PROJECT DEVELOPMENT COORDINATOR, TROPI, LACDS, PT, CMPX, CDP, MG, PRCAL #### [facility] [place], [place] [phone] Developing Machine Operator: Nhan Mast MD WBC (Bld) [#/Vol] 5.6 10*3/uL Normal 3.5-11.3 [facility] Comment on above: Performed By: #### B PROJECT DEVELOPMENT COORDINATOR, TROPI, LACDS, PT, CMPX, CDP, MG, PRCAL #### [facility] [address] [place] [address] [phone] Developing Machine Operator: Nhan Mast MD CBCOrdered By: Jesus Forrest on on 09-01-2020 Hematocrit (Bld) [Volume fraction] 39.3 % Low 40.7 - 50.3 % [employer] Phone: Hemoglobin.gastrointest inal spec 1 Ql (Stl) 11.6 g/dL Low 13.0 - 17.0 g/dL [employer] Phone: Interpretation and review of laboratory results Abnormal [employer] Phone: MCH (RBC) [Entitic mass] 27.4 pg 25.2 - 33.5 pg [employer] Phone: MCHC (RBC) [Mass/Vol] 29.5 g/dL 28.4 - 34.8 g/dL [employer] Phone: MCV (RBC) [Entitic vol] 92.7 fL 82.6 - 102.9 fL [employer] Phone: NRBC Automated 0.0 0.0 per 100 WBC [employer] Phone: Platelet distribution width (Bld) [Ratio] 16.8 % High 11.8 - 14.4 % [employer] Phone: Platelet mean volume (Bld) [Entitic vol] 10.5 fL 8.1 - 13.5 fL [employer] Phone: Platelets (Bld) [#/Vol] 164 10*3/uL [employer] Phone: RBC (Bld) [#/Vol] 4.24 10*6/uL 4.21 - 5.7 7 m/uL [employer] Phone: WBC (Bld) [#/Vol] 5.6 10*3/uL [employer] Phone: [employer] Phone: HEPATIC FUNCTION PANELOrdere d By: Jesus Poe on 09-01-2020 Albumin [Mass/Vol] 2 g/dL Low 3.5 - 5.2 g/dL [employer] Phone: Albumin/Globulin [Mass ratio] 0.6 {ratio} Low [employer] Phone: ALP (Bld) [Catalytic activity/Vol] 232 U/L High 40 - 129 U/L [employer] Phone: ALT [Catalytic activity/Vol] 24 U/L 5 - 41 U/L [employer] Phone: AST [Catalytic activity/Vol] 24 U/L <40 [employer] Phone: Bilirubin [Mass/Vol] 2.02 mg/dL High 0.3 - 1 .2 mg/dL [employer] Phone: Bilirubin, Indirect 0.63 mg/dL 0.00 - 1 .00 mg/dL [employer] Phone: Bilirubin.indirect [Mass/Vol] 1.39 mg/dL High <0.31 [employer] Phone: Free PSA/Total PSA [Mass fraction] 5.2 g/dL Low 6.4 - 8.3 g/dL [employer] Phone: Globulin NOT REPORTED 1.5 - 3.8 g/dL [employer] Phone: Interpretation and review of laboratory results Abnormal [employer] Phone: Lactate, SepsisOrdered By: Rolan Renee on 09-01-2020 Interpretation and review of laboratory results Abnormal [facility] Phone: Lactic Acid, Sepsis NOT REPORTED 0.5 - 1. 9 mmol/L [employer] Phone: Lactic Acid, Sepsis, Whole Blood 2.5 mmol/L High 0.5 - 1.9 mmol/L [employer] Phone: [employer] Phone: Liver Profileon 09-01-2020 Albumin [Mass/Vol] 2.0 g/dL Low 3.5-5.2 [facility] Comment on above: Performed By: #### B PROJECT DEVELOPMENT COORDINATOR, TROPI, LACDS, PT, CMPX, CDP, MG, PRCAL #### [facility] [address] [place] [phone] Developing Machine Operator: Nhan Mast MD Albumin/Glob Ratio 0.6 Low 1.0-2.5 [facility] Comment on above: Performed By: #### B PROJECT DEVELOPMENT COORDINATOR, TROPI, LACDS, PT, CMPX, CDP, MG, PRCAL #### [facility] [address] [place] [phone] Developing Machine Operator: Nhan Mast MD Alkaline Phos 232 U/L High 40-129 [facility] Comment on above: Performed By: #### B PROJECT DEVELOPMENT COORDINATOR, TROPI, LACDS, PT, CMPX, CDP, MG, PRCAL #### [facility] [address] [place] [phone] Developing Machine Operator: Nhan Mast MD ALT [Catalytic activity/Vol] 24 U/L Normal 5-41 [facility] Comment on above: Performed By: #### B PROJECT DEVELOPMENT COORDINATOR, TROPI, LACDS, PT, CMPX, CDP, MG, PRCAL #### [address] [address] Developing Machine Operator: Nhan Mast MD AST [Catalytic activity/Vol] 24 U/L Normal <40 [facility] Comment on above: Performed By: #### B PROJECT DEVELOPMENT COORDINATOR, TROPI, LACDS, PT, CMPX, CDP, MG, PRCAL #### [facility] [address] [place] [phone] Developing Machine Operator: Nhan Mast MD Bilirubin [Mass/Vol] 2.02 mg/dL High 0.3-1.2 [facility] Comment on above: Performed By: #### B PROJECT DEVELOPMENT COORDINATOR, TROPI, LACDS, PT, CMPX, CDP, MG, PRCAL #### [address] [address] Developing Machine Operator: Nhan Mast MD Bilirubin, Indirect 0.63 mg/dL Normal 0.00-1.00 [facility] Comment on above: Performed By: #### B PROJECT DEVELOPMENT COORDINATOR, TROPI, LACDS, PT, CMPX, CDP, MG, PRCAL #### [facility] [address] [place] [phone] Developing Machine Operator: Nhan Mast MD Bilirubin.indirect [Mass/Vol] 1.39 mg/dL High <0.31 [facility] Comment on above: Performed By: #### B PROJECT DEVELOPMENT COORDINATOR, TROPI, LACDS, PT, CMPX, CDP, MG, PRCAL #### [facility] [address] [place] [address] [phone] Developing Machine Operator: Nhan Mast MD Protein [Mass/Vol] 5.2 g/dL Low 6.4-8.3 [facility] Comment on above: Performed By: #### B PROJECT DEVELOPMENT COORDINATOR, TROPI, LACDS, PT, CMPX, CDP, MG, PRCAL #### [facility] [address] [place] [address] [phone] Developing Machine Operator: Nhan Mast MD Globulin Fraction NOT REPORTED Normal 1.5-3.8 [facility] Comment on above: Performed By: #### B PROJECT DEVELOPMENT COORDINATOR, TROPI, LACDS, PT, CMPX, CDP, MG, PRCAL #### [facility] [address] [place] [address] [phone] Developing Machine Operator: Nhan Mast MD Magnesiumon 09-01-2020 Magnesium [Mass/Vol] 1.9 mg/dL Normal 1.6-2.6 [facility] Comment on above: Performed By: #### B PROJECT DEVELOPMENT COORDINATOR, TROPI, LACDS, PT, CMPX, CDP, MG, PRCAL #### [facility] [address] [place] [address] [phone] Developing Machine Operator: Nhan Mast MD MagnesiumOrdered By: Jesus Poe on 09-01-2020 Magnesium [Mass/Vol] 1.9 mg/dL 1.6 - 2 .6 mg/dL [employer] Phone: No Panel InformationOrdered By: Jesus Poe on 09-01-2020 [employer] Phone: POC Glucose FingerstickOrder ed By: Harvey Dotson on 09-01-2020 Glucose [Mass/Vol] 268 mg/dL High 75 - 110 mg/dL [facility] Phone: Interpretation and review of laboratory results Abnormal [facility] Phone: [employer] Phone: Glucose [Mass/Vol] 280 mg/dL High 75 - 110 mg/dL [facility] Phone: Interpretation and review of laboratory results Abnormal [employer] Phone: [employer] Phone: Glucose [Mass/Vol] 347 mg/dL High 75 - 110 mg/dL [employer] Phone: Interpretation and review of laboratory results Abnormal [employer] Phone: [employer] Phone: Glucose [Mass/Vol] 222 mg/dL High 75 - 110 mg/dL [facility] Phone: Interpretation and review of laboratory results Abnormal [employer] Phone: [employer] Phone: CBCon 08-31-2020 Erythrocyte distribution width (RBC) [Ratio] 17.0 % High 11.8-14.4 [facility] Comment on above: Performed By: #### B PROJECT DEVELOPMENT COORDINATOR, TROPI, LACDS, PT, CMPX, CDP, MG, PRCAL #### [facility] [address] [place] [phone] Developing Machine Operator: Nhan Mast MD Hematocrit (Bld) [Volume fraction] 39.7 % Low 40.7-50.3 [facility] Comment on above: Performed By: #### B PROJECT DEVELOPMENT COORDINATOR, TROPI, LACDS, PT, CMPX, CDP, MG, PRCAL #### [facility] [address] [place] [phone] Developing Machine Operator: Nhan Mast MD Hemoglobin (Bld) [Mass/Vol] 11.7 g/dL Low 13.0-17.0 [facility] Comment on above: Performed By: #### B PROJECT DEVELOPMENT COORDINATOR, TROPI, LACDS, PT, CMPX, CDP, MG, PRCAL #### [address] [phone] Developing Machine Operator: Nhan Mast MD MCH (RBC) [Entitic mass] 27.8 pg Normal 25.2-33.5 [facility] Comment on above: Performed By: #### B PROJECT DEVELOPMENT COORDINATOR, TROPI, LACDS, PT, CMPX, CDP, MG, PRCAL #### [address] [address] Developing Machine Operator: Nhan Mast MD MCHC (RBC) [Mass/Vol] 29.5 g/dL Normal 28.4-34.8 [facility] Comment on above: Performed By: #### B PROJECT DEVELOPMENT COORDINATOR, TROPI, LACDS, PT, CMPX, CDP, MG, PRCAL #### [place] [address] Developing Machine Operator: Nhan Mast MD MCV (RBC) [Entitic vol] 94.3 fL Normal 82.6-102.9 [facility] Comment on above: Performed By: #### B PROJECT DEVELOPMENT COORDINATOR, TROPI, LACDS, PT, CMPX, CDP, MG, PRCAL #### [address] [phone] Developing Machine Operator: Nhan Mast MD NRBC Automated 0.0 per 100 WBC Normal 0.0 [facility] Comment on above: Performed By: #### B PROJECT DEVELOPMENT COORDINATOR, TROPI, LACDS, PT, CMPX, CDP, MG, PRCAL #### [address] [phone] Developing Machine Operator: Nhan Mast MD Platelet mean volume (Bld) [Entitic vol] 10.8 fL Normal 8.1-13.5 [facility] Comment on above: Performed By: #### B PROJECT DEVELOPMENT COORDINATOR, TROPI, LACDS, PT, CMPX, CDP, MG, PRCAL #### [address] [place], [place] [phone] Developing Machine Operator: Nhan Mast MD Platelets (Bld) [#/Vol] 206 10*3/uL Normal 138-453 [facility] Comment on above: Performed By: #### B PROJECT DEVELOPMENT COORDINATOR, TROPI, LACDS, PT, CMPX, CDP, MG, PRCAL #### [facility] [place], [place] [phone] Developing Machine Operator: Nhan Mast MD RBC (Bld) [#/Vol] 4.21 10*6/uL Normal 4.21-5.77 [facility] Comment on above: Performed By: #### B PROJECT DEVELOPMENT COORDINATOR, TROPI, LACDS, PT, CMPX, CDP, MG, PRCAL #### [address] [phone] Developing Machine Operator: Nhan Mast MD WBC (Bld) [#/Vol] 9.2 10*3/uL Normal 3.5-11.3 [facility] Comment on above: Performed By: #### B PROJECT DEVELOPMENT COORDINATOR, TROPI, LACDS, PT, CMPX, CDP, MG, PRCAL #### [address] [phone] Developing Machine Operator: Nhan Mast MD CBCOrdered By: Jesus Forrest on on 08-31-2020 Hematocrit (Bld) [Volume fraction] 39.7 % Low 40.7 - 50.3 % [employer] Phone: Hemoglobin.gastrointest inal spec 1 Ql (Stl) 11.7 g/dL Low 13.0 - 17.0 g/dL [employer] Phone: Interpretation and review of laboratory results Abnormal [employer] Phone: MCH (RBC) [Entitic mass] 27.8 pg 25.2 - 33.5 pg [employer] Phone: MCHC (RBC) [Mass/Vol] 29.5 g/dL 28.4 - 34.8 g/dL [employer] Phone: MCV (RBC) [Entitic vol] 94.3 fL 82.6 - 102.9 fL [employer] Phone: NRBC Automated 0.0 0.0 per 100 WBC [employer] Phone: Platelet distribution width (Bld) [Ratio] 17.0 % High 11.8 - 14.4 % [employer] Phone: Platelet mean volume (Bld) [Entitic vol] 10.8 fL 8.1 - 13.5 fL [employer] Phone: Platelets (Bld) [#/Vol] 206 10*3/uL [employer] Phone: RBC (Bld) [#/Vol] 4.21 10*6/uL 4.21 - 5.7 7 m/uL [employer] Phone: WBC (Bld) [#/Vol] 9.2 10*3/uL [employer] Phone: [employer] Phone: Comp Metabolic Profon 2020 (cont.) Normal [facility] Comment on above: Result Comment: Aver age GFR for 60-69 years old: 85 mL/min/1.73sq m Chronic Kidney Disease: <60 mL/min/1.73sq m Kidney failure: <15 mL/min/1.73sq m eGFR calculated using average adult body mass. Additional eGFR calculator available at: http://www.[employer] [place].Mismi/multiple_crcl_2012.htm Performed By: #### B PROJECT DEVELOPMENT COORDINATOR, TROPI, LACDS, PT, CMPX, CDP, MG, PRCAL #### [facility] [address] [place], [place] [phone] Developing Machine Operator: Nhan Mast MD Albumin [Mass/Vol] 2.2 g/dL Low 3.5-5.2 [facility] Comment on above: Performed By: #### B PROJECT DEVELOPMENT COORDINATOR, TROPI, LACDS, PT, CMPX, CDP, MG, PRCAL #### [address] [address] Developing Machine Operator: Nhan Mast MD Albumin/Glob Ratio 0.7 Low 1.0-2.5 [facility] Comment on above: Performed By: #### B PROJECT DEVELOPMENT COORDINATOR, TROPI, LACDS, PT, CMPX, CDP, MG, PRCAL #### [address] [address] Developing Machine Operator: Nhan Mast MD Alkaline Phos 251 U/L High 40-129 [facility] Comment on above: Performed By: #### B PROJECT DEVELOPMENT COORDINATOR, TROPI, LACDS, PT, CMPX, CDP, MG, PRCAL #### [address] [address] Developing Machine Operator: Nhan Mast MD ALT [Catalytic activity/Vol] 28 U/L Normal 5-41 [facility] Comment on above: Performed By: #### B PROJECT DEVELOPMENT COORDINATOR, TROPI, LACDS, PT, CMPX, CDP, MG, PRCAL #### [address] [address] Developing Machine Operator: Nhan Mast MD Anion gap [Moles/Vol] 10 mmol/L Normal 9-17 [facility] Comment on above: Performed By: #### B PROJECT DEVELOPMENT COORDINATOR, TROPI, LACDS, PT, CMPX, CDP, MG, PRCAL #### [address] [address] Developing Machine Operator: Nhan Mast MD AST [Catalytic activity/Vol] 32 U/L Normal <40 [facility] Comment on above: Performed By: #### B PROJECT DEVELOPMENT COORDINATOR, TROPI, LACDS, PT, CMPX, CDP, MG, PRCAL #### [facility] [address] [place] [phone] Developing Machine Operator: Nhan Mast MD Bilirubin [Mass/Vol] 2.39 mg/dL High 0.3-1.2 [facility] Comment on above: Performed By: #### B PROJECT DEVELOPMENT COORDINATOR, TROPI, LACDS, PT, CMPX, CDP, MG, PRCAL #### [address] [address] Developing Machine Operator: Nhan Mast MD Calcium [Mass/Vol] 8.0 mg/dL Low 8.6-10.4 [facility] Comment on above: Performed By: #### B PROJECT DEVELOPMENT COORDINATOR, TROPI, LACDS, PT, CMPX, CDP, MG, PRCAL #### [address] [address] Developing Machine Operator: Nhan Mast MD Chloride [Moles/Vol] 107 mmol/L Normal 98-107 [facility] Comment on above: Performed By: #### B PROJECT DEVELOPMENT COORDINATOR, TROPI, LACDS, PT, CMPX, CDP, MG, PRCAL #### [address] [address] Developing Machine Operator: Nhan Mast MD CO2 [Moles/Vol] 20 mmol/L Normal 20-31 [facility] Comment on above: Performed By: #### B PROJECT DEVELOPMENT COORDINATOR, TROPI, LACDS, PT, CMPX, CDP, MG, PRCAL #### [address] [address] Developing Machine Operator: Nhan Mast MD Creatinine [Mass/Vol] 0.77 mg/dL Normal 0.70-1.20 [facility] Comment on above: Result Comment: ICTE ANEUDY SPECIMEN Performed By: #### B PROJECT DEVELOPMENT COORDINATOR, TROPI, LACDS, PT, CMPX, CDP, MG, PRCAL #### [address] [address] Developing Machine Operator: Nhan Mast MD GFR, Amer >60 Normal >60 [facility] Comment on above: Performed By: #### B PROJECT DEVELOPMENT COORDINATOR, TROPI, LACDS, PT, CMPX, CDP, MG, PRCAL #### [facility] [address] [place] [address] [phone] Developing Machine Operator: Nhan Mast MD GFR,non Amer >60 Normal >60 [facility] Comment on above: Performed By: #### B PROJECT DEVELOPMENT COORDINATOR, TROPI, LACDS, PT, CMPX, CDP, MG, PRCAL #### [address] [phone] Developing Machine Operator: Nhan Mast MD Glucose [Mass/Vol] 235 mg/dL High 70-99 [facility] Comment on above: Performed By: #### B PROJECT DEVELOPMENT COORDINATOR, TROPI, LACDS, PT, CMPX, CDP, MG, PRCAL #### [facility] [address] [place] [phone] Developing Machine Operator: Nhan aMst MD Potassium [Moles/Vol] 4.2 mmol/L Normal 3.7-5.3 [facility] Comment on above: Performed By: #### B PROJECT DEVELOPMENT COORDINATOR, TROPI, LACDS, PT, CMPX, CDP, MG, PRCAL #### [facility] [address] [place] [address] [phone] Developing Machine Operator: Nhan Mast MD Protein [Mass/Vol] 5.5 g/dL Low 6.4-8.3 [facility] Comment on above: Performed By: #### B PROJECT DEVELOPMENT COORDINATOR, TROPI, LACDS, PT, CMPX, CDP, MG, PRCAL #### [facility] [address] [place] [phone] Developing Machine Operator: Nhan Mast MD Sodium [Moles/Vol] 137 mmol/L Normal 135-144 [facility] Comment on above: Performed By: #### B PROJECT DEVELOPMENT COORDINATOR, TROPI, LACDS, PT, CMPX, CDP, MG, PRCAL #### [facility] [address] [place] [address] Developing Machine Operator: Nhan Mast MD Urea nitrogen [Mass/Vol] 21 mg/dL Normal - [facility] Comment on above: Performed By: #### B PROJECT DEVELOPMENT COORDINATOR, TROPI, LACDS, PT, CMPX, CDP, MG, PRCAL #### [facility] [address] [place], [place] [phone] Developing Machine Operator: Nhan Mast MD BUN/CRE Ratio NOT REPORTED Normal - [facility] Comment on above: Performed By: #### B PROJECT DEVELOPMENT COORDINATOR, TROPI, LACDS, PT, CMPX, CDP, MG, PRCAL #### [facility] [address] [place] [address] Developing Machine Operator: Nhan Mast MD Staging: NOT REPORTED Normal [facility] Comment on above: Performed By: #### B PROJECT DEVELOPMENT COORDINATOR, TROPI, LACDS, PT, CMPX, CDP, MG, PRCAL #### [facility] [address] [place], [place] [phone] Developing Machine Operator: Nhan Mast MD Comprehensive Metabolic Pane lOrdered By: Harvey Dotson on 08-31-2020 Albumin [Mass/Vol] 2.2 g/dL Low 3.5 - 5.2 g/dL [employer] Phone: Albumin/Globulin [Mass ratio] 0.7 {ratio} Low [employer] Phone: ALP (Bld) [Catalytic activity/Vol] 251 U/L High 40 - 129 U/L [employer] Phone: ALT [Catalytic activity/Vol] 28 U/L 5 - 41 U/L [employer] Phone: Anion gap [Moles/Vol] 10 mmol/L 9 - 17 mmol/L [employer] Phone: AST [Catalytic activity/Vol] 32 U/L <40 [employer] Phone: Bilirubin [Mass/Vol] 2.39 mg/dL High 0.3 - 1 .2 mg/dL [facility] Phone: Calcium [Mass/Vol] 8.0 mg/dL Low 8.6 - 10. 4 mg/dL [facility] Phone: Chloride [Moles/Vol] 107 mmol/L 98 - 10 7 mmol/L [facility] Phone: CO2 [Moles/Vol] 20 mmol/L 20 - 31 mmol/L [facility] Phone: Creatinine [Mass/Vol] 0.77 mg/dL 0.70 - 1.20 mg/dL [employer] Phone: Free PSA/Total PSA [Mass fraction] 5.5 g/dL Low 6.4 - 8.3 g/dL [employer] Phone: GFR >60 >60 mL/min [employer] Phone: GFR Non- >60 >60 mL/min [facility] Phone: GFR/1.73 sq M.predicted MDRD (S/P/Bld) [Vol rate/Area] [facility] Phone: GFR/1.73 sq M.predicted MDRD (S/P/Bld) [Vol rate/Area] NOT REPORTED [facility] Phone: Glucose [Mass/Vol] 235 mg/dL High 70 - 99 mg/dL [facility] [employer] Phone: Interpretation and review of laboratory results Abnormal [facility] Phone: Potassium [Moles/Vol] 4.2 mmol/L 3.7 - 5.3 mmol/L [facility] Phone: Sodium [Moles/Vol] 137 mmol/L 135 - 144 mmol/L [employer] Phone: Urea nitrogen (BldV) [Mass/Vol] 21 mg/dL 8 - 23 mg/dL [facility] Phone: Urea nitrogen/Creatinine (Bld) [Mass ratio] NOT REPORTED [employer] Phone: [employer] Phone: Cult,Bloodon 08-31-2020 Cult,Blood Specimen Description .BLOOD Special Requests RT FOREARM 6 ML Culture POSITIVE Blood Culture Results called to and read back by: REGINO Mtz 08/28/20 0316 DIRECT GRAM STAIN FROM BOTTLE: GRAM NEGATIVE RODS ESCHERICHIA COLI KLEBSIELLA PNEUMONIAE THIS ORGANISM IS AN EXTENDED-SPECTRUM BETA-LACTAMASE STAFF VETERINARIAN AND RESISTANCE TO THERAPY WITH PENICILLINS, CEPHALOSPORINS AND AZTREONAM IS EXPECTED. THESE ORGANISMS GENERALLY REMAIN SUSCEPTIBLE TO CARBAPENEMS. CONSIDER ID CONSULTATION. Report Status FINAL 08/31/2020 SUSCEPTIBILITY Organism ESCHERICHIA COLI Method JASON Amikacin NOT REPORTED Ampicillin >=32 RESISTANT Ampicillin/Sulbactam NOT REPORTED Aztreonam <=1 SUSCEPTIBLE Cefazolin <=4 SUSCEPTIBLE Cefepime NOT REPORTED Ceftriaxone <=1 SUSCEPTIBLE Ciprofloxacin 1 SUSCEPTIBLE Ertapenem NOT REPORTED ESBL NEGATIVE Gentamicin <=1 SUSCEPTIBLE Meropenem NOT REPORTED Nitrofurantoin NOT REPORTED Tigecycline NOT REPORTED Tobramycin <=1 SUSCEPTIBLE Trimethoprim/Sulfa <=20 SUSCEPTIBLE Piperacillin/Tazobacta m <=4 SUSCEPTIBLE SUSCEPTIBILITY Organism KLEBSIELLA PNEUMONIAE Method JASON Amikacin NOT REPORTED Ampicillin >=32 RESISTANT Ampicillin/Sulbactam NOT REPORTED Aztreonam 32 RESISTANT Cefazolin >=64 RESISTANT Cefepime 2 RESISTANT Ceftriaxone >=64 RESISTANT Ciprofloxacin >=4 RESISTANT Ertapenem NOT REPORTED ESBL POSITIVE Gentamicin <=1 SUSCEPTIBLE Meropenem <=0.25 SUSCEPTIBLE Nitrofurantoin NOT REPORTED Tobramycin 8 INTERMEDIATE Trimethoprim/Sulfa >=320 RESISTANT Piperacillin/Tazobacta m 32 RESISTANT Normal [facility] Comment on above: Performed By: #### B PROJECT DEVELOPMENT COORDINATOR, TROPI, LACDS, PT, CMPX, CDP, MG, PRCAL #### [facility] [address] [place] [phone] Developing Machine Operator: Nhan Mast MD Culture, Blood 1Ordered By: Josesito Aquino on 08-31-2020 Bacteria identified Cx Nom (Unsp spec) POSITIVE Blood Culture Results called to and read back by: REGINO Mtz 08/28/20 0315 Abnormal [employer] Phone: Bacteria identified Cx Nom (Unsp spec) Negative [employer] Phone: Bacteria identified Cx Nom (Unsp spec) ESCHERICHIA COLI Abnormal [employer] Phone: Bacteria identified Cx Nom (Unsp spec) KLEBSIELLA PNEUMONIAE THIS ORGANISM IS AN EXTENDED-SPECTRUM BETA-LACTAMASE STAFF VETERINARIAN AND RESISTANCE TO THERAPY WITH PENICILLINS, CEPHALOSPORINS AND AZTREONAM IS EXPECTED. THESE ORGANISMS GENERALLY REMAIN SUSCEPTIBLE TO CARBAPENEMS. CONSIDER ID CONSULTATION. Abnormal [facility] Phone: Interpretation and review of laboratory results Abnormal [facility] Phone: Special Requests RT FOREARM 6 ML [employer] Phone: Specimen Description .BLOOD [employer] Phone: [employer] Phone: HEPATIC FUNCTION PANELOrdere d By: Jesus Poe on 08-31-2020 Albumin [Mass/Vol] 2.2 g/dL Low 3.5 - 5.2 g/dL [employer] Phone: Albumin/Globulin [Mass ratio] 0.6 {ratio} Low [employer] Phone: ALP (Bld) [Catalytic activity/Vol] 270 U/L High 40 - 129 U/L [employer] Phone: ALT [Catalytic activity/Vol] 29 U/L 5 - 41 U/L [employer] Phone: AST [Catalytic activity/Vol] 35 U/L <40 [employer] Phone: Bilirubin [Mass/Vol] 2.40 mg/dL High 0.3 - 1 .2 mg/dL [employer] Phone: Bilirubin, Indirect 0.66 mg/dL 0.00 - 1 .00 mg/dL [employer] Phone: Bilirubin.indirect [Mass/Vol] 1.74 mg/dL High <0.31 [employer] Phone: Free PSA/Total PSA [Mass fraction] 5.6 g/dL Low 6.4 - 8.3 g/dL [employer] Phone: Globulin NOT REPORTED 1.5 - 3.8 g/dL [employer] Phone: Interpretation and review of laboratory results Abnormal [employer] Phone: [employer] Phone: Liver Profileon 08-31-2020 Bilirubin, Indirect 0.66 mg/dL Normal 0.00-1.00 [facility] Comment on above: Performed By: #### B PROJECT DEVELOPMENT COORDINATOR, TROPI, LACDS, PT, CMPX, CDP, MG, PRCAL #### [facility] [address] [place] [phone] Developing Machine Operator: Nhan Mast MD Bilirubin.indirect [Mass/Vol] 1.74 mg/dL High <0.31 [facility] Comment on above: Performed By: #### B PROJECT DEVELOPMENT COORDINATOR, TROPI, LACDS, PT, CMPX, CDP, MG, PRCAL #### [facility] [address] [place] [address] [phone] Developing Machine Operator: Nhan Mast MD Albumin [Mass/Vol] 2.2 g/dL Low 3.5-5.2 [facility] Comment on above: Performed By: #### B PROJECT DEVELOPMENT COORDINATOR, TROPI, LACDS, PT, CMPX, CDP, MG, PRCAL #### [facility] [address] [place] [address] [phone] Developing Machine Operator: Nhan Mast MD Albumin/Glob Ratio 0.6 Low 1.0-2.5 [facility] Comment on above: Performed By: #### B PROJECT DEVELOPMENT COORDINATOR, TROPI, LACDS, PT, CMPX, CDP, MG, PRCAL #### [address] [address] Developing Machine Operator: Nhan Mast MD Alkaline Phos 270 U/L High 40-129 [facility] Comment on above: Performed By: #### B PROJECT DEVELOPMENT COORDINATOR, TROPI, LACDS, PT, CMPX, CDP, MG, PRCAL #### [address] [address] Developing Machine Operator: Nhan Mast MD ALT [Catalytic activity/Vol] 29 U/L Normal 5-41 [facility] Comment on above: Performed By: #### B PROJECT DEVELOPMENT COORDINATOR, TROPI, LACDS, PT, CMPX, CDP, MG, PRCAL #### [address] [address] Developing Machine Operator: Nhan Mast MD AST [Catalytic activity/Vol] 35 U/L Normal <40 [facility] Comment on above: Performed By: #### B PROJECT DEVELOPMENT COORDINATOR, TROPI, LACDS, PT, CMPX, CDP, MG, PRCAL #### [address] [address] Developing Machine Operator: Nhan Mast MD Bilirubin [Mass/Vol] 2.40 mg/dL High 0.3-1.2 [facility] Comment on above: Performed By: #### B PROJECT DEVELOPMENT COORDINATOR, TROPI, LACDS, PT, CMPX, CDP, MG, PRCAL #### [address] [address] Developing Machine Operator: Nhan Mast MD Protein [Mass/Vol] 5.6 g/dL Low 6.4-8.3 [facility] Comment on above: Performed By: #### B PROJECT DEVELOPMENT COORDINATOR, TROPI, LACDS, PT, CMPX, CDP, MG, PRCAL #### [id number] [place], [place] [phone] Developing Machine Operator: Nhan Mast MD Globulin Fraction NOT REPORTED Normal 1.5-3.8 [facility] Comment on above: Performed By: #### B PROJECT DEVELOPMENT COORDINATOR, TROPI, LACDS, PT, CMPX, CDP, MG, PRCAL #### [id number] [place], [place] [id number] Developing Machine Operator: Nhan Mast MD Magnesiumon 08-31-2020 Magnesium [Mass/Vol] 2.1 mg/dL Normal 1.6-2.6 [facility] Comment on above: Performed By: #### B PROJECT DEVELOPMENT COORDINATOR, TROPI, LACDS, PT, CMPX, CDP, MG, PRCAL #### [address] [phone] Developing Machine Operator: Nhan Mast MD MagnesiumOrdered By: Jesus Poe on 08-31-2020 Magnesium [Mass/Vol] 2.1 mg/dL 1.6 - 2 .6 mg/dL [facility] Phone: Arrayit Phone: POC Glucose FingerstickOrder ed By: Harvey Dotson on 08-31-2020 Glucose [Mass/Vol] 259 mg/dL High 75 - 110 mg/dL [facility] Phone: Interpretation and review of laboratory results Abnormal [employer] Phone: Arrayit Phone: Glucose [Mass/Vol] 210 mg/dL High 75 - 110 mg/dL [facility] Phone: Interpretation and review of laboratory results Abnormal [employer] Phone: Arrayit Phone: Glucose [Mass/Vol] 189 mg/dL High 75 - 110 mg/dL [facility] Phone: Interpretation and review of laboratory results Abnormal [employer] Phone: Arrayit Phone: Glucose [Mass/Vol] 211 mg/dL High 75 - 110 mg/dL [facility] Phone: Interpretation and review of laboratory results Abnormal [employer] Phone: Arrayit Phone: Procalcitoninon 08-31-2020 Procalcitonin 5.75 ng/mL High <0.09 [facility] Comment on above: Result Comment: Suspected Sepsis: <0.50 ng/mL Low likelihood of sepsis. 0.50-2.00 ng/mL Increased likelihood of sepsis. Antibiotics encouraged. >2.00 ng/mL High risk of sepsis/shock. Antibiotics strongly encouraged. Suspected Lower Resp Tract Infections: <0.24 ng/mL Low likelihood of bacterial infection. >0.24 ng/mL Increased likelihood of bacterial infection. Antibiotics encouraged. With successful antibiotic therapy, PCT levels should decrease rapidly. (Half-life of 24 to 36 hours.) Procalcitonin values from samples collected within the first 6 hours of systemic infection may still be low. Retesting may be indicated. Values from day 1 and day 4 can be entered into the Change in Procalcitonin Calculator (www.zfhtwd-ogw-bmfifyjvmp.com) to determine the patient's Mortality Risk Prognosis In healthy neonates, plasma Procalcitonin (PCT) concentrations increase gradually after , reaching peak values at about 24 hours of age then decrease to normal values below 0.5 ng/mL by 48-72 hours of age. Performed By: #### B PROJECT DEVELOPMENT COORDINATOR, TROPI, LACDS, PT, CMPX, CDP, MG, PRCAL #### [facility] [address] [place] [phone] Developing Machine Operator: Nhan Mast MD ProcalcitoninOrdered By: Leah Dotson on 08-31-2020 Interpretation and review of laboratory results Abnormal [facility] Phone: Procalcitonin 5.75 ng/mL High <0.09 [facility] Phone: Arrayit Phone: XR CHEST PORTABLEon 09-01-19 XR CHEST PORTABLE EXAMINATION: ONE XRAY VIEW OF THE CHEST 08/31/2020 1:52 pm COMPARISON: August 30, 2020 HISTORY: ORDERING SYSTEM PROVIDED HISTORY: tachypnea TECHNOLOGIST PROVIDED HISTORY: tachypnea FINDINGS: Right subclavian central venous catheter and cardiomediastinal silhouette appear unchanged. Pulmonary vascular congestion and diffuse interstitial prominence appear unchanged. No definite effusion. No pneumothorax or subdiaphragmatic free air. IMPRESSION: Pulmonary vascular congestion with interstitial pulmonary edema similar to prior study. Interpreted by: Uriah He MD Signed by: Uriah He MD 08/31/20 Final result Normal [facility] XR CHEST PORTABLEOrdered By: Harvey Dotson on 08-31-2020 [employer] Phone: Arrayit Phone: Arrayit Phone: Arrayit Phone: CBCon 08-30-2020 Erythrocyte distribution width (RBC) [Ratio] 16.5 % High 11.8-14.4 [facility] Comment on above: Performed By: #### B PROJECT DEVELOPMENT COORDINATOR, TROPI, LACDS, PT, CMPX, CDP, MG, PRCAL #### [facility] [address] [place] [phone] Developing Machine Operator: Nhan Mast MD Hematocrit (Bld) [Volume fraction] 36.6 % Low 40.7-50.3 [facility] Comment on above: Performed By: #### B PROJECT DEVELOPMENT COORDINATOR, TROPI, LACDS, PT, CMPX, CDP, MG, PRCAL #### [facility] [address] [place] [phone] Developing Machine Operator: Nhan Mast MD Hemoglobin (Bld) [Mass/Vol] 11.2 g/dL Low 13.0-17.0 [facility] Comment on above: Performed By: #### B PROJECT DEVELOPMENT COORDINATOR, TROPI, LACDS, PT, CMPX, CDP, MG, PRCAL #### [address] [phone] Developing Machine Operator: Nhan Mast MD MCH (RBC) [Entitic mass] 27.7 pg Normal 25.2-33.5 [facility] Comment on above: Performed By: #### B PROJECT DEVELOPMENT COORDINATOR, TROPI, LACDS, PT, CMPX, CDP, MG, PRCAL #### [place] [address] Developing Machine Operator: Nhan Mast MD MCHC (RBC) [Mass/Vol] 30.6 g/dL Normal 28.4-34.8 [facility] Comment on above: Performed By: #### B PROJECT DEVELOPMENT COORDINATOR, TROPI, LACDS, PT, CMPX, CDP, MG, PRCAL #### [place] [address] Developing Machine Operator: Nhan Mast MD MCV (RBC) [Entitic vol] 90.4 fL Normal 82.6-102.9 [facility] Comment on above: Performed By: #### B PROJECT DEVELOPMENT COORDINATOR, TROPI, LACDS, PT, CMPX, CDP, MG, PRCAL #### [place] [address] Developing Machine Operator: Nhan Mast MD NRBC Automated 0.0 per 100 WBC Normal 0.0 [facility] Comment on above: Performed By: #### B PROJECT DEVELOPMENT COORDINATOR, TROPI, LACDS, PT, CMPX, CDP, MG, PRCAL #### [address] [address] Developing Machine Operator: Nhan Mast MD Platelet mean volume (Bld) [Entitic vol] 11.1 fL Normal 8.1-13.5 [facility] Comment on above: Performed By: #### B PROJECT DEVELOPMENT COORDINATOR, TROPI, LACDS, PT, CMPX, CDP, MG, PRCAL #### [facility] [address] [place] [address] [phone] Developing Machine Operator: Nhan Mast MD Platelets (Bld) [#/Vol] 139 10*3/uL Normal 138-453 [facility] Comment on above: Performed By: #### B PROJECT DEVELOPMENT COORDINATOR, TROPI, LACDS, PT, CMPX, CDP, MG, PRCAL #### [facility] [address] [place] [phone] Developing Machine Operator: Nhan Mast MD RBC (Bld) [#/Vol] 4.05 10*6/uL Low 4.21-5.77 [facility] Comment on above: Performed By: #### B PROJECT DEVELOPMENT COORDINATOR, TROPI, LACDS, PT, CMPX, CDP, MG, PRCAL #### [facility] [address] [place] [address] [phone] Developing Machine Operator: Nhan Mast MD WBC (Bld) [#/Vol] 11.2 10*3/uL Normal 3.5-11.3 [facility] Comment on above: Performed By: #### B PROJECT DEVELOPMENT COORDINATOR, TROPI, LACDS, PT, CMPX, CDP, MG, PRCAL #### [address] [phone] Developing Machine Operator: Nhan Mast MD CBCOrdered By: Magdaleno Wilson on 08-30-2020 Hematocrit (Bld) [Volume fraction] 36.6 % Low 40.7 - 50.3 % Array[facility] Phone: Hemoglobin.gastrointest inal spec 1 Ql (Stl) 11.2 g/dL Low 13.0 - 17.0 g/dL [facility] Phone: Interpretation and review of laboratory results Abnormal [facility] Phone: MCH (RBC) [Entitic mass] 27.7 pg 25.2 - 33.5 pg [employer] Phone: MCHC (RBC) [Mass/Vol] 30.6 g/dL 28.4 - 34.8 g/dL [employer] Phone: MCV (RBC) [Entitic vol] 90.4 fL 82.6 - 102.9 fL [employer] Phone: NRBC Automated 0.0 0.0 per 100 WBC [facility] Phone: Platelet distribution width (Bld) [Ratio] 16.5 % High 11.8 - 14.4 % [employer] Phone: Platelet mean volume (Bld) [Entitic vol] 11.1 fL 8.1 - 13.5 fL [employer] Phone: Platelets (Bld) [#/Vol] 139 10*3/uL [employer] Phone: RBC (Bld) [#/Vol] 4.05 10*6/uL Low 4.21 - 5.7 7 m/uL [facility] Phone: WBC (Bld) [#/Vol] 11.2 10*3/uL [employer] Phone: Array[facility] Phone: Cult,Bloodon 08-30-2020 Cult,Blood Specimen Description .BLOOD Special Requests LT HAND 7.5ML Culture POSITIVE Blood Culture Results called to and read back by: REGINO Mtz 08/28/20 0315 DIRECT GRAM STAIN FROM BOTTLE: GRAM NEGATIVE RODS Escherichia coli Detected: Methodology- Polymerase Chain Reaction (PCR) ESCHERICHIA COLI Report Status FINAL 09/01/2020 SUSCEPTIBILITY Organism ESCHERICHIA COLI Method JASON Amikacin NOT REPORTED Ampicillin >=32 RESISTANT Ampicillin/Sulbactam NOT REPORTED Aztreonam <=1 SUSCEPTIBLE Cefazolin <=4 SUSCEPTIBLE Cefepime NOT REPORTED Ceftriaxone <=1 SUSCEPTIBLE Ciprofloxacin 1 SUSCEPTIBLE Ertapenem NOT REPORTED ESBL NEGATIVE Gentamicin <=1 SUSCEPTIBLE Meropenem NOT REPORTED Nitrofurantoin NOT REPORTED Tigecycline NOT REPORTED Tobramycin <=1 SUSCEPTIBLE Trimethoprim/Sulfa <=20 SUSCEPTIBLE Piperacillin/Tazobacta m <=4 SUSCEPTIBLE Normal [facility] Comment on above: Performed By: #### B PROJECT DEVELOPMENT COORDINATOR, TROPI, LACDS, PT, CMPX, CDP, MG, PRCAL #### [facility] [address] [place], [place] [phone] Developing Machine Operator: Nhan Mast MD Culture, Blood 1Ordered By: Josesito Aquino on 08-30-2020 Bacteria identified Cx Nom (Unsp spec) POSITIVE Blood Culture Results called to and read back by: REGINO Mtz 08/28/20 0315 Abnormal [facility] Phone: Bacteria identified Cx Nom (Unsp spec) Negative [facility] Phone: Bacteria identified Cx Nom (Unsp spec) Escherichia coli Detected: Methodology- Polymerase Chain Reaction (PCR) Abnormal [employer] Phone: Bacteria identified Cx Nom (Unsp spec) ESCHERICHIA COLI Abnormal [facility] Phone: Interpretation and review of laboratory results Abnormal [facility] Phone: Special Requests LT HAND 7.5ML [employer] Phone: Specimen Description .BLOOD [employer] Phone: Arrayit Phone: ECHO Complete 2D W Doppler W ColorOrdered By: Alexis Ramon on 08-30-2020 [employer] Phone: Array[facility] Phone: Arrayit Phone: HEPATIC FUNCTION PANELOrdere d By: Alvaro Purcell on 08-30-2020 Albumin [Mass/Vol] 2.2 g/dL Low 3.5 - 5.2 g/dL [facility] Phone: Albumin/Globulin [Mass ratio] 0.8 {ratio} Low [employer] Phone: ALP (Bld) [Catalytic activity/Vol] 234 U/L High 40 - 129 U/L [employer] Phone: ALT [Catalytic activity/Vol] 32 U/L 5 - 41 U/L [employer] Phone: AST [Catalytic activity/Vol] 32 U/L <40 [facility] Phone: Bilirubin [Mass/Vol] 3.35 mg/dL High 0.3 - 1 .2 mg/dL [facility] Phone: Bilirubin, Indirect 0.42 mg/dL 0.00 - 1 .00 mg/dL [facility] Phone: Bilirubin.indirect [Mass/Vol] 2.93 mg/dL High <0.31 [facility] Phone: Free PSA/Total PSA [Mass fraction] 5.1 g/dL Low 6.4 - 8.3 g/dL [facility] Phone: Globulin NOT REPORTED 1.5 - 3.8 g/dL [facility] Phone: Interpretation and review of laboratory results Abnormal [employer] Phone: Array[facility] Phone: Liver Profileon 08-30-2020 Albumin [Mass/Vol] 2.2 g/dL Low 3.5-5.2 [facility] Comment on above: Performed By: #### B PROJECT DEVELOPMENT COORDINATOR, TROPI, LACDS, PT, CMPX, CDP, MG, PRCAL #### [facility] [address] [place] [phone] Developing Machine Operator: Nhan Mast MD Albumin/Glob Ratio 0.8 Low 1.0-2.5 [facility] Comment on above: Performed By: #### B PROJECT DEVELOPMENT COORDINATOR, TROPI, LACDS, PT, CMPX, CDP, MG, PRCAL #### [address] [address] Developing Machine Operator: Nhan Mast MD Alkaline Phos 234 U/L High 40-129 [facility] Comment on above: Performed By: #### B PROJECT DEVELOPMENT COORDINATOR, TROPI, LACDS, PT, CMPX, CDP, MG, PRCAL #### [address] [address] Developing Machine Operator: Nhan Mast MD ALT [Catalytic activity/Vol] 32 U/L Normal 5-41 [facility] Comment on above: Performed By: #### B PROJECT DEVELOPMENT COORDINATOR, TROPI, LACDS, PT, CMPX, CDP, MG, PRCAL #### [address] [address] Developing Machine Operator: Nhan Mast MD AST [Catalytic activity/Vol] 32 U/L Normal <40 [facility] Comment on above: Performed By: #### B PROJECT DEVELOPMENT COORDINATOR, TROPI, LACDS, PT, CMPX, CDP, MG, PRCAL #### [address] [address] Developing Machine Operator: Nhan Mast MD Bilirubin [Mass/Vol] 3.35 mg/dL High 0.3-1.2 [facility] Comment on above: Performed By: #### B PROJECT DEVELOPMENT COORDINATOR, TROPI, LACDS, PT, CMPX, CDP, MG, PRCAL #### [address] [address] Developing Machine Operator: Nhan Mast MD Bilirubin, Indirect 0.42 mg/dL Normal 0.00-1.00 [facility] Comment on above: Performed By: #### B PROJECT DEVELOPMENT COORDINATOR, TROPI, LACDS, PT, CMPX, CDP, MG, PRCAL #### [address] [address] Developing Machine Operator: Nhan Mast MD Bilirubin.indirect [Mass/Vol] 2.93 mg/dL High <0.31 [facility] Comment on above: Performed By: #### B PROJECT DEVELOPMENT COORDINATOR, TROPI, LACDS, PT, CMPX, CDP, MG, PRCAL #### [facility] [address] [place] [address] [phone] Developing Machine Operator: Nhan Mast MD Protein [Mass/Vol] 5.1 g/dL Low 6.4-8.3 [facility] Comment on above: Performed By: #### B PROJECT DEVELOPMENT COORDINATOR, TROPI, LACDS, PT, CMPX, CDP, MG, PRCAL #### [facility] [address] [place] [address] [phone] Developing Machine Operator: Nhan Mast MD Globulin Fraction NOT REPORTED Normal 1.5-3.8 [facility] Comment on above: Performed By: #### B PROJECT DEVELOPMENT COORDINATOR, TROPI, LACDS, PT, CMPX, CDP, MG, PRCAL #### [facility] [address] [place] [address] [phone] Developing Machine Operator: Nhan Mast MD Magnesiumon 08-30-2020 Magnesium [Mass/Vol] 1.9 mg/dL Normal 1.6-2.6 [facility] Comment on above: Performed By: #### B PROJECT DEVELOPMENT COORDINATOR, TROPI, LACDS, PT, CMPX, CDP, MG, PRCAL #### [facility] [address] [place] [address] [phone] Developing Machine Operator: Nhan Mast MD MagnesiumOrdered By: Alexis Ramon on 08-30-2020 Magnesium [Mass/Vol] 1.9 mg/dL 1.6 - 2 .6 mg/dL [facility] Phone: [facility] Phone: POC Glucose FingerstickOrder ed By: Magdaleno Wilson on 08-30-2020 Glucose [Mass/Vol] 206 mg/dL High 75 - 110 mg/dL [facility] Work Phone: Interpretation and review of laboratory results Abnormal [facility] Phone: Arrayit Phone: Glucose [Mass/Vol] 166 mg/dL High 75 - 110 mg/dL [facility] Phone: Interpretation and review of laboratory results Abnormal [facility] Phone: [phone] [employer] Phone: Glucose [Mass/Vol] 125 mg/dL High 75 - 110 mg/dL [facility] Phone: Interpretation and review of laboratory results Abnormal [facility] Phone: Arrayit Phone: Glucose [Mass/Vol] 126 mg/dL High 75 - 110 mg/dL [facility] Phone: Interpretation and review of laboratory results Abnormal [facility] Phone: Arrayit Phone: XR CHEST PORTABLEon 08-31-19 XR CHEST PORTABLE EXAMINATION: ONE XRAY VIEW OF THE CHEST 08/30/2020 10:48 am COMPARISON: None. HISTORY: ORDERING SYSTEM PROVIDED HISTORY: dysnpea, concern for PNA/pleural effusions TECHNOLOGIST PROVIDED HISTORY: Bedside please dysnpea, concern for PNA/pleural effusions FINDINGS: Right-sided central venous catheter in good position. Interval removal of endotracheal tube. Persistent prominent interstitial markings bilaterally. No evidence for effusion. Cardiac silhouette within normal limits. IMPRESSION: Improved aeration of lung compared to prior study interval removal of endotracheal tube. Right-sided central venous catheter remains unchanged. Persistent chronic interstitial markings bilaterally with no evidence for effusions. Interpreted by: Saqib Machado MD Signed by: Saqib Machado MD 08/30/20 Final result Normal [facility] XR CHEST PORTABLEOrdered By: Alvaro Purcell on 08-30-2020 [employer] Phone: Arrayit Phone: Array[facility] Phone: [employer] Phone: Arterial Blood Gas, POCOrder ed By: Magdaleno Wilson on 08-29-2020 Skyler Test NOT REPORTED [employer] Phone: FIO2 40.0 [employer] Phone: Mode [employer] Work Phone: Negative Base Excess, Art 3 High [employer] Phone: O2 Device/Flow/% Adult Ventilator [employer] Work Phone: POC HCO3 22.6 mmol/L 21.0 - 28.0 mmol/L [employer] Phone: POC O2 SAT 99 % High 94.0 - 98.0 % [employer] Phone: POC pCO2 40.5 [employer] Phone: POC pCO2 Temp 41 mm Hg [employer] Phone: POC pH 7.354 [employer] Phone: POC pH Temp 7.35 [employer] Phone: POC PO2 146.3 High [employer] Phone: POC pO2 Temp 149 mm Hg [employer] Phone: Positive Base Excess, Art NOT REPORTED [employer] Phone: Pt Temp 37.4 [employer] Phone: Sample Site Arterial Line [employer] Phone: TCO2 (calc), Art NOT REPORTED 22.0 - 29.0 mmol/L [employer] Phone: CBCon 08-29-2020 Erythrocyte distribution width (RBC) [Ratio] 16.0 % High 11.8-14.4 [facility] Comment on above: Performed By: #### B PROJECT DEVELOPMENT COORDINATOR, TROPI, LACDS, PT, CMPX, CDP, MG, PRCAL #### [address] [phone] Developing Machine Operator: Nhan Mast MD Hematocrit (Bld) [Volume fraction] 37.7 % Low 40.7-50.3 [facility] Comment on above: Performed By: #### B PROJECT DEVELOPMENT COORDINATOR, TROPI, LACDS, PT, CMPX, CDP, MG, PRCAL #### [place] [address] Developing Machine Operator: Nhan Mast MD Hemoglobin (Bld) [Mass/Vol] 11.6 g/dL Low 13.0-17.0 [facility] Comment on above: Performed By: #### B PROJECT DEVELOPMENT COORDINATOR, TROPI, LACDS, PT, CMPX, CDP, MG, PRCAL #### [address] [address] Developing Machine Operator: Nhan Mast MD MCH (RBC) [Entitic mass] 27.6 pg Normal 25.2-33.5 [facility] Comment on above: Performed By: #### B PROJECT DEVELOPMENT COORDINATOR, TROPI, LACDS, PT, CMPX, CDP, MG, PRCAL #### [place] [address] Developing Machine Operator: Nhan Mast MD MCHC (RBC) [Mass/Vol] 30.8 g/dL Normal 28.4-34.8 [facility] Comment on above: Performed By: #### B PROJECT DEVELOPMENT COORDINATOR, TROPI, LACDS, PT, CMPX, CDP, MG, PRCAL #### [address] [phone] Developing Machine Operator: Nhan Mast MD MCV (RBC) [Entitic vol] 89.5 fL Normal 82.6-102.9 M [facility] Comment on above: Performed By: #### B PROJECT DEVELOPMENT COORDINATOR, TROPI, LACDS, PT, CMPX, CDP, MG, PRCAL #### [address] [address] Developing Machine Operator: Nhan Mast MD NRBC Automated 0.0 per 100 WBC Normal 0.0 [facility] Comment on above: Performed By: #### B PROJECT DEVELOPMENT COORDINATOR, TROPI, LACDS, PT, CMPX, CDP, MG, PRCAL #### [address] [address] Developing Machine Operator: Nhan Mast MD Platelet mean volume (Bld) [Entitic vol] 11.8 fL Normal 8.1-13.5 [facility] Comment on above: Performed By: #### B PROJECT DEVELOPMENT COORDINATOR, TROPI, LACDS, PT, CMPX, CDP, MG, PRCAL #### [address] [address] Developing Machine Operator: Nhan Mast MD Platelets (Bld) [#/Vol] 123 10*3/uL Low 138-453 [facility] Comment on above: Performed By: #### B PROJECT DEVELOPMENT COORDINATOR, TROPI, LACDS, PT, CMPX, CDP, MG, PRCAL #### [address] [address] Developing Machine Operator: Nhan Mast MD RBC (Bld) [#/Vol] 4.21 10*6/uL Normal 4.21-5.77 [facility] Comment on above: Performed By: #### B PROJECT DEVELOPMENT COORDINATOR, TROPI, LACDS, PT, CMPX, CDP, MG, PRCAL #### [address] [address] Developing Machine Operator: Nhan Mast MD WBC (Bld) [#/Vol] 18.1 10*3/uL High 3.5-11.3 [facility] Comment on above: Performed By: #### B PROJECT DEVELOPMENT COORDINATOR, TROPI, LACDS, PT, CMPX, CDP, MG, PRCAL #### [facility] [address] [phone] Developing Machine Operator: Nhan Mast MD CBCOrdered By: Alexis baum on 08-29-2020 Hematocrit (Bld) [Volume fraction] 37.7 % Low 40.7 - 50.3 % [employer] Phone: Hemoglobin.gastrointest inal spec 1 Ql (Stl) 11.6 g/dL Low 13.0 - 17.0 g/dL [facility] Phone: Interpretation and review of laboratory results Abnormal [facility] Phone: MCH (RBC) [Entitic mass] 27.6 pg 25.2 - 33.5 pg [employer] Phone: MCHC (RBC) [Mass/Vol] 30.8 g/dL 28.4 - 34.8 g/dL [employer] Phone: MCV (RBC) [Entitic vol] 89.5 fL 82.6 - 102.9 fL [employer] Phone: NRBC Automated 0.0 0.0 per 100 WBC [employer] Phone: Platelet distribution width (Bld) [Ratio] 16.0 % High 11.8 - 14.4 % [employer] Phone: Platelet mean volume (Bld) [Entitic vol] 11.8 fL 8.1 - 13.5 fL [employer] Phone: Platelets (Bld) [#/Vol] 123 10*3/uL Low [employer] Phone: RBC (Bld) [#/Vol] 4.21 10*6/uL 4.21 - 5.7 7 m/uL [employer] Phone: WBC (Bld) [#/Vol] 18.1 10*3/uL High [facility] Phone: [facility] Phone: CREATININE, RANDOM URINEOrde red By: Humphrey Dejesus on 08-29-2020 Creatinine, Ur 212.7 mg/dL 39.0 - 259.0 mg/dL [employer] Phone: [employer] Phone: Comp Metab w/Bili Pron 08-29 (cont.) Normal [facility] Comment on above: Result Comment: Aver age GFR for 60-69 years old: 85 mL/min/1.73sq m Chronic Kidney Disease: <60 mL/min/1.73sq m Kidney failure: <15 mL/min/1.73sq m eGFR calculated using average adult body mass. Additional eGFR calculator available at: http://www.MILI/multiple_crcl_2011.htm Performed By: #### B PROJECT DEVELOPMENT COORDINATOR, TROPI, LACDS, PT, CMPX, CDP, MG, PRCAL #### [facility] [address] [place] [phone] Developing Machine Operator: Nhan Mast MD Creatinine [Mass/Vol] 1.28 mg/dL High 0.70-1.20 [facility] Comment on above: Result Comment: ICTE ANEUDY SPECIMEN Performed By: #### B PROJECT DEVELOPMENT COORDINATOR, TROPI, LACDS, PT, CMPX, CDP, MG, PRCAL #### [facility] [address] [place] [phone] Developing Machine Operator: Nhan Mast MD GFR, Amer >60 Normal >60 [facility] Comment on above: Performed By: #### B PROJECT DEVELOPMENT COORDINATOR, TROPI, LACDS, PT, CMPX, CDP, MG, PRCAL #### [facility] [address] [place] [phone] Developing Machine Operator: Nhan Mast MD GFR,non Amer 56 mL/min Low >60 [facility] Comment on above: Performed By: #### B PROJECT DEVELOPMENT COORDINATOR, TROPI, LACDS, PT, CMPX, CDP, MG, PRCAL #### [facility] [address] [place] [phone] Developing Machine Operator: Nhan Mast MD Albumin [Mass/Vol] 2.2 g/dL Low 3.5-5.2 [facility] Comment on above: Performed By: #### B PROJECT DEVELOPMENT COORDINATOR, TROPI, LACDS, PT, CMPX, CDP, MG, PRCAL #### [address] [address] Developing Machine Operator: Nhan Mast MD Albumin/Glob Ratio 0.7 Low 1.0-2.5 [facility] Comment on above: Performed By: #### B PROJECT DEVELOPMENT COORDINATOR, TROPI, LACDS, PT, CMPX, CDP, MG, PRCAL #### [facility] [address] [place] [phone] Developing Machine Operator: Nhan Mast MD Alkaline Phos 263 U/L High 40-129 [facility] Comment on above: Performed By: #### B PROJECT DEVELOPMENT COORDINATOR, TROPI, LACDS, PT, CMPX, CDP, MG, PRCAL #### [facility] [address] [place] [id number] Developing Machine Operator: Nhan Mast MD ALT [Catalytic activity/Vol] 42 U/L High 5-41 [facility] Comment on above: Performed By: #### B PROJECT DEVELOPMENT COORDINATOR, TROPI, LACDS, PT, CMPX, CDP, MG, PRCAL #### [facility] [address] [place] [id number] Developing Machine Operator: Nhan Mast MD Anion gap [Moles/Vol] 13 mmol/L Normal 9-17 [facility] Comment on above: Performed By: #### B PROJECT DEVELOPMENT COORDINATOR, TROPI, LACDS, PT, CMPX, CDP, MG, PRCAL #### [address] [address] Developing Machine Operator: Nhan Mast MD AST [Catalytic activity/Vol] 56 U/L High <40 [facility] Comment on above: Performed By: #### B PROJECT DEVELOPMENT COORDINATOR, TROPI, LACDS, PT, CMPX, CDP, MG, PRCAL #### [address] [address] Developing Machine Operator: Nhan Mast MD Bilirubin [Mass/Vol] 8.87 mg/dL High 0.3-1.2 [facility] Comment on above: Performed By: #### B PROJECT DEVELOPMENT COORDINATOR, TROPI, LACDS, PT, CMPX, CDP, MG, PRCAL #### [address] [address] Developing Machine Operator: Nhan Mast MD Bilirubin, Indirect 0.94 mg/dL Normal 0.00-1.00 [facility] Comment on above: Performed By: #### B PROJECT DEVELOPMENT COORDINATOR, TROPI, LACDS, PT, CMPX, CDP, MG, PRCAL #### [address] [address] Developing Machine Operator: Nhan Mast MD Bilirubin.indirect [Mass/Vol] 7.93 mg/dL High <0.31 [facility] Comment on above: Performed By: #### B PROJECT DEVELOPMENT COORDINATOR, TROPI, LACDS, PT, CMPX, CDP, MG, PRCAL #### [address] [address] Developing Machine Operator: Nhan Mast MD Calcium [Mass/Vol] 7.6 mg/dL Low 8.6-10.4 [facility] Comment on above: Performed By: #### B PROJECT DEVELOPMENT COORDINATOR, TROPI, LACDS, PT, CMPX, CDP, MG, PRCAL #### [address] [address] Developing Machine Operator: Nhan Mast MD Chloride [Moles/Vol] 104 mmol/L Normal 98-107 [facility] Comment on above: Performed By: #### B PROJECT DEVELOPMENT COORDINATOR, TROPI, LACDS, PT, CMPX, CDP, MG, PRCAL #### [facility] [address] [place] [phone] Developing Machine Operator: Nhan Mast MD CO2 [Moles/Vol] 19 mmol/L Low 20-31 [facility] Comment on above: Performed By: #### B PROJECT DEVELOPMENT COORDINATOR, TROPI, LACDS, PT, CMPX, CDP, MG, PRCAL #### [address] [address] Developing Machine Operator: Nhan Mast MD Glucose [Mass/Vol] 220 mg/dL High 70-99 [facility] Comment on above: Performed By: #### B PROJECT DEVELOPMENT COORDINATOR, TROPI, LACDS, PT, CMPX, CDP, MG, PRCAL #### [facility] [address] [place] [phone] Developing Machine Operator: Nhan Mast MD Potassium [Moles/Vol] 4.2 mmol/L Normal 3.7-5.3 [facility] Comment on above: Performed By: #### B PROJECT DEVELOPMENT COORDINATOR, TROPI, LACDS, PT, CMPX, CDP, MG, PRCAL #### [facility] [address] [place] [id number] Developing Machine Operator: Nhan Mast MD Protein [Mass/Vol] 5.2 g/dL Low 6.4-8.3 [facility] Comment on above: Performed By: #### B PROJECT DEVELOPMENT COORDINATOR, TROPI, LACDS, PT, CMPX, CDP, MG, PRCAL #### [facility] [address] [place] [phone] Developing Machine Operator: Nhan Mast MD Sodium [Moles/Vol] 136 mmol/L Normal 135-144 [facility] Comment on above: Performed By: #### B PROJECT DEVELOPMENT COORDINATOR, TROPI, LACDS, PT, CMPX, CDP, MG, PRCAL #### [facility] [address] [place], [place] [id number] Developing Machine Operator: Nhan Mast MD Urea nitrogen [Mass/Vol] 30 mg/dL High 8- [facility] Comment on above: Performed By: #### B PROJECT DEVELOPMENT COORDINATOR, TROPI, LACDS, PT, CMPX, CDP, MG, PRCAL #### [facility] [address] [place], [place] [phone] Developing Machine Operator: Nhan Mast MD Staging: NOT REPORTED Normal [facility] Comment on above: Performed By: #### B PROJECT DEVELOPMENT COORDINATOR, TROPI, LACDS, PT, CMPX, CDP, MG, PRCAL #### [facility] [address] [place], [place] [phone] Developing Machine Operator: Nhan Mast MD Comp Metabolic w Bili Profil eOrdered By: Alexis Ramon on 08-29-2020 Albumin [Mass/Vol] 2.2 g/dL Low 3.5 - 5.2 g/dL [employer] Phone: Albumin/Globulin [Mass ratio] 0.7 {ratio} Low [employer] Phone: ALP (Bld) [Catalytic activity/Vol] 263 U/L High 40 - 129 U/L [employer] Phone: ALT [Catalytic activity/Vol] 42 U/L High 5 - 41 U/L [employer] Phone: Anion gap [Moles/Vol] 13 mmol/L 9 - 17 mmol/L [employer] Phone: AST [Catalytic activity/Vol] 56 U/L High <40 [employer] Phone: Bilirubin [Mass/Vol] 8.87 mg/dL High 0.3 - 1 .2 mg/dL [employer] Phone: Bilirubin, Indirect 0.94 mg/dL 0.00 - 1 .00 mg/dL [employer] Phone: Bilirubin.indirect [Mass/Vol] 7.93 mg/dL High <0.31 [employer] Phone: Calcium [Mass/Vol] 7.6 mg/dL Low 8.6 - 10. 4 mg/dL [employer] Phone: Chloride [Moles/Vol] 104 mmol/L 98 - 10 7 mmol/L [employer] Phone: CO2 [Moles/Vol] 19 mmol/L Low 20 - 31 mmol/L [employer] Phone: Creatinine [Mass/Vol] 1.28 mg/dL High 0.70 - 1.20 mg/dL [employer] Phone: Free PSA/Total PSA [Mass fraction] 5.2 g/dL Low 6.4 - 8.3 g/dL [employer] Phone: GFR >60 >60 mL/min [employer] Phone: GFR Non- 56 mL/min Low >60 [employer] Phone: GFR/1.73 sq M.predicted MDRD (S/P/Bld) [Vol rate/Area] [employer] Phone: GFR/1.73 sq M.predicted MDRD (S/P/Bld) [Vol rate/Area] NOT REPORTED [employer] Phone: Glucose [Mass/Vol] 220 mg/dL High 70 - 99 mg/dL [facility] Phone: Interpretation and review of laboratory results Abnormal [employer] Phone: Potassium [Moles/Vol] 4.2 mmol/L 3.7 - 5.3 mmol/L [facility] Phone: Sodium [Moles/Vol] 136 mmol/L 135 - 144 mmol/L [employer] Phone: Urea nitrogen (BldV) [Mass/Vol] 30 mg/dL High 8 - 23 mg/dL [facility] Phone: [facility] Phone: Creatinine,Random Uron 08-29 Creatinine [Mass/Vol] 212.7 mg/dL Normal 39.0-259.0 [facility] Comment on above: Performed By: #### B PROJECT DEVELOPMENT COORDINATOR, TROPI, LACDS, PT, CMPX, CDP, MG, PRCAL #### [facility] [place] [address] Developing Machine Operator: Nhan Mast MD Cult,Urineon 08-29-2020 Cult,Urine Specimen Description .CLEAN CATCH URINE Special Requests NOT REPORTED Culture KLEBSIELLA PNEUMONIAE >[id number] CFU/ML THIS ORGANISM IS AN EXTENDED-SPECTRUM BETA-LACTAMASE STAFF VETERINARIAN AND RESISTANCE TO THERAPY WITH PENICILLINS, CEPHALOSPORINS AND AZTREONAM IS EXPECTED. THESE ORGANISMS GENERALLY REMAIN SUSCEPTIBLE TO CARBAPENEMS. CONSIDER ID CONSULTATION. Report Status FINAL 08/29/2020 SUSCEPTIBILITY Organism KLEBSIELLA PNEUMONIAE Method JASON Amikacin NOT REPORTED Ampicillin >=32 RESISTANT Ampicillin/Sulbactam NOT REPORTED Aztreonam >=64 RESISTANT Cefazolin >=64 RESISTANT Cefazolin sensitivity results can be used to predict the effectiveness of oral cephalosporins (eg. Cephalexin) in uncomplicated Urinary Tract Infections due to E. coli, K. pneumoniae, and P. mirabilis Cefepime >=64 RESISTANT Ceftriaxone >=64 RESISTANT Ciprofloxacin 2 INTERMEDIATE Ertapenem NOT REPORTED ESBL POSITIVE Gentamicin <=1 SUSCEPTIBLE Meropenem <=0.25 SUSCEPTIBLE Nitrofurantoin 64 INTERMEDIATE Tigecycline NOT REPORTED Tobramycin 8 INTERMEDIATE Trimethoprim/Sulfa >=320 RESISTANT Piperacillin/Tazobacta m 64 RESISTANT Normal [facility] Comment on above: Performed By: #### B PROJECT DEVELOPMENT COORDINATOR, TROPI, LACDS, PT, CMPX, CDP, MG, PRCAL #### [facility] [address] [place] [address] Developing Machine Operator: Nhan Mast MD Culture, UrineOrdered By: Doug Poe on 08-29-2020 Bacteria identified Cx Nom (U) KLEBSIELLA PNEUMONIAE >[id number] CFU/ML THIS ORGANISM IS AN EXTENDED-SPECTRUM BETA-LACTAMASE STAFF VETERINARIAN AND RESISTANCE TO THERAPY WITH PENICILLINS, CEPHALOSPORINS AND AZTREONAM IS EXPECTED. THESE ORGANISMS GENERALLY REMAIN SUSCEPTIBLE TO CARBAPENEMS. CONSIDER ID CONSULTATION. Abnormal [employer] Phone: Interpretation and review of laboratory results Abnormal [employer] Phone: Special Requests NOT REPORTED [employer] Phone: Specimen Description .CLEAN CATCH URINE [facility] Phone: [facility] Phone: ExtubationOrdered By: Magdaleno Wilson on 08-29-2020 [facility] Phone: [facility] Phone: Lactic Acid, POCOrdered By: Magdaleno Wilson on 08-29-2020 POC Lactic Acid 0.72 mmol/L 0.56 - 1.39 mmol/L [employer] Phone: MRSA DNA Probe, NasalOrdered By: Main Ascencio on 08-29-2020 Interpretation and review of laboratory results Abnormal [employer] Phone: MRSA, DNA, Nasal POSITIVE: MRSA DNA detected by nucleic acid amplification. Abnormal NEGATIVE: MRSA DNA not detected by nucleic acid amplificati [facility] Phone: Specimen Description .NASAL SWAB [facility] Phone: [facility] Phone: MRSA, DNA, Nasalon 1 MRSA, DNA, Nasal POSITIVE: MRSA DNA detected by nucleic acid amplification. Abnormal [facility] Comment on above: Result Comment: Results should be used as an adjunct to nosocomial control efforts to identify patients needing enhanced precautions. The test is not intended to identify patients with staphylococcal infections. Results should not be used to guide or monitor treatment for MRSA infections. Performed By: #### B PROJECT DEVELOPMENT COORDINATOR, TROPI, LACDS, PT, CMPX, CDP, MG, PRCAL #### [facility] [address] [place], [place] [phone] Developing Machine Operator: Nhan Mast MD Magnesiumon 08-29-2020 Magnesium [Mass/Vol] 1.9 mg/dL Normal 1.6-2.6 [facility] Comment on above: Performed By: #### B PROJECT DEVELOPMENT COORDINATOR, TROPI, LACDS, PT, CMPX, CDP, MG, PRCAL #### [facility] [address] [place] [phone] Developing Machine Operator: Nhan Mast MD MagnesiumOrdered By: Alexis Ramon on 08-29-2020 Magnesium [Mass/Vol] 1.9 mg/dL 1.6 - 2 .6 mg/dL [employer] Phone: [employer] Phone: No Panel InformationOrdered By: Magdaleno Wilson on 08-29-2020 Interpretation and review of laboratory results Abnormal [employer] Phone: [employer] Phone: OSMOLALITY, URINEOrdered By: Humphrey Dejesus on 08-29-2020 Osmolality, Ur 423 [employer] Phone: [employer] Phone: Osmolality, Urineon 08-30-19 Osmolality - Urine 423 mOsm/kg Normal 80-1300 [facility] Comment on above: Performed By: #### B PROJECT DEVELOPMENT COORDINATOR, TROPI, LACDS, PT, CMPX, CDP, MG, PRCAL #### [facility] [address] [place] [phone] Developing Machine Operator: Nhan Mast MD POC Glucose FingerstickOrder ed By: Magdaleno Wilson on 08-29-2020 Glucose [Mass/Vol] 133 mg/dL High 75 - 110 mg/dL [employer] Phone: Interpretation and review of laboratory results Abnormal [employer] Phone: [employer] Phone: Glucose [Mass/Vol] 142 mg/dL High 75 - 110 mg/dL [employer] Phone: Interpretation and review of laboratory results Abnormal [employer] Phone: [employer] Phone: Glucose [Mass/Vol] 160 mg/dL High 75 - 110 mg/dL [employer] Phone: Interpretation and review of laboratory results Abnormal [employer] Phone: [employer] Phone: POCT GlucoseOrdered By: Aftab Wilson on 08-29-2020 Glucose [Mass/Vol] 236 mg/dL High 74 - 100 mg/dL [employer] Phone: PREPARE FRESH FROZEN PLASMA, 1 UnitsOrdered By: Main Ascencio on 08-29-2020 Blood product type Nom (BPU) Fresh Plasma [employer] Phone: Dispense Status TRANSFUSED [employer] Phone: Transfusion Status OK TO TRANSFUSE [facility]: Unit Divison 0 [employer] Phone: Unit Number [id number] [employer] Phone: [employer] Phone: PREPARE FRESH FROZEN PLASMA, 2 UnitsOrdered By: Isamar Suazo on 08-29-2020 Unit Number [id number] [employer] Phone: Unit Number [id number] [employer] Phone: PROTIME-INROrdered By: Melody Ramon on 08-29-2020 INR Coag (Bld) [Relative time] 1.0 {INR} [facility] [employer] Work Phone: PT Coag (PPP) [Time] 11.1 s [facility] [employer] Work Phone: [facility] [employer] Work Phone: PTon 08-29-2020 INR Coag (PPP) [Relative time] 1.0 {INR} Normal [facility] Comment on above: Result Comment: Therapeutic Range: Moderate Anticoagulant Intensity: INR = 2.0-3.0 High Anticoagulant Intensity: INR = 2.5-3.5 Performed By: #### B PROJECT DEVELOPMENT COORDINATOR, TROPI, LACDS, PT, CMPX, CDP, MG, PRCAL #### [facility] [place] [address] Developing Machine Operator: Nhan Mast MD PT Coag (PPP) [Time] 11.1 s Normal 9.1-12.3 [facility] Comment on above: Performed By: #### B PROJECT DEVELOPMENT COORDINATOR, TROPI, LACDS, PT, CMPX, CDP, MG, PRCAL #### [facility] [address] [place] [phone] Developing Machine Operator: Nhan Mast MD Procalcitoninon 08-29-2020 Procalcitonin 23.04 ng/mL High <0.09 [facility] Comment on above: Result Comment: Suspected Sepsis: <0.50 ng/mL Low likelihood of sepsis. 0.50-2.00 ng/mL Increased likelihood of sepsis. Antibiotics encouraged. >2.00 ng/mL High risk of sepsis/shock. Antibiotics strongly encouraged. Suspected Lower Resp Tract Infections: <0.24 ng/mL Low likelihood of bacterial infection. >0.24 ng/mL Increased likelihood of bacterial infection. Antibiotics encouraged. With successful antibiotic therapy, PCT levels should decrease rapidly. (Half-life of 24 to 36 hours.) Procalcitonin values from samples collected within the first 6 hours of systemic infection may still be low. Retesting may be indicated. Values from day 1 and day 4 can be entered into the Change in Procalcitonin Calculator (www.vkkfoq-jpd-retskioexz.com) to determine the patient's Mortality Risk Prognosis In healthy neonates, plasma Procalcitonin (PCT) concentrations increase gradually after , reaching peak values at about 24 hours of age then decrease to normal values below 0.5 ng/mL by 48-72 hours of age. Performed By: #### B PROJECT DEVELOPMENT COORDINATOR, TROPI, LACDS, PT, CMPX, CDP, MG, PRCAL #### [facility] [address] [place] [address] Developing Machine Operator: Nhan Mast MD ProcalcitoninOrdered By: Fei Ramon on 08-29-2020 Interpretation and review of laboratory results Abnormal [facility] Phone: Procalcitonin 23.04 ng/mL High <0.09 [employer] Phone: [employer] Phone: SODIUM, URINE, RANDOMOrdered By: Humphrey Dejesus on 08-29-2020 Sodium,Ur <20 mmol/L [employer] Phone: [employer] Phone: Sodium, Random Uron 08-30-19 21 Na Conc. Urine <20 Normal [facility] Comment on above: Result Comment: No n ormal range established. Performed By: #### B PROJECT DEVELOPMENT COORDINATOR, TROPI, LACDS, PT, CMPX, CDP, MG, PRCAL #### [facility] [address] [place], [place] [phone] Developing Machine Operator: Nhan Mast MD US GALLBLADDER RUQon 021 US GALLBLADDER RUQ EXAMINATION: RIGHT UPPER QUADRANT ULTRASOUND 08/29/2020 4:35 pm COMPARISON: CT abdomen pelvis dated 08/27/2020 HISTORY: ORDERING SYSTEM PROVIDED HISTORY: eval gallbladder TECHNOLOGIST PROVIDED HISTORY: eval gallbladder FINDINGS: Evaluation is markedly limited due to patient body habitus and overlying bowel gas. LIVER: There is increased echogenicity of the liver parenchyma, which may reflect underlying hepatic steatosis or other chronic liver parenchymal disease. BILIARY SYSTEM: Evaluation of gallbladder is markedly limited. Evaluation for cholelithiasis and acute cholecystitis is limited on this study. Common bile duct is within normal limits measuring 5 mm. Patient's known hyperdense stone in the common bile duct is not well visualized on this study. RIGHT KIDNEY: The right kidney is grossly unremarkable without evidence of hydronephrosis. PANCREAS: Evaluation of pancreas is limited due to overlying bowel gas. OTHER: No evidence of right upper quadrant ascites. IMPRESSION: Markedly limited examination due to patient body habitus and overlying bowel gas. Evaluation for cholelithiasis or acute cholecystitis is limited on this study. As a was inflammatory changes seen about the gallbladder the recent CT, if there is clinical concern for acute cholecystitis, HIDA scan may be considered for further evaluation. Patient's known choledocholithiasis is not well appreciated sonographically. The common bile duct appears normal in caliber measuring 5 mm. Increased echogenicity of the liver parenchyma, which may reflect underlying hepatic steatosis or other chronic liver parenchymal disease. Interpreted by: Richard Tapia Signed by: Richard Tapia 08/29/20 Final result Normal [facility] US GALLBLADDER RUQOrdered By : Alexis Ramon on 08-29-2020 [employer] Phone: [employer] Phone: [employer] Work Phone: [employer] Phone: XR ABDOMEN FOR NG/OG/NE TUBE PLACEMENTon 08-29-2020 XR ABDOMEN FOR NG/OG/NE TUBE PLACEMENT EXAMINATION: ONE SUPINE XRAY VIEW(S) OF THE ABDOMEN 08/28/2020 9:35 pm COMPARISON: None. HISTORY: ORDERING SYSTEM PROVIDED HISTORY: Confirmation of course of NG/OG/NE tube and location of tip of tube TECHNOLOGIST PROVIDED HISTORY: Confirmation of course of NG/OG/NE tube and location of tip of tube Portable?->Yes Reason for Exam: Supine port. OG placement FINDINGS: The nasogastric tube has normal course, distal side port and tip over the fundus. There is a nonspecific bowel gas pattern. No free air is seen. IMPRESSION: Nasogastric tube projects in normal position. Interpreted by: Poli Issa MD Signed by: Poli Issa MD 08/29/20 Final result Normal [facility] XR ABDOMEN FOR NG/OG/NE TUBE PLACEMENTOrdered By: Cyrus Kenney on 08-29-2020 [employer] Phone: [employer] Phone: [employer] Phone: [employer] Phone: XR CHEST PORTABLEon 08-30-19 XR CHEST PORTABLE EXAMINATION: ONE XRAY VIEW OF THE CHEST 08/28/2020 9:35 pm COMPARISON: 08/28/2020 HISTORY: ORDERING SYSTEM PROVIDED HISTORY: ett nd og TECHNOLOGIST PROVIDED HISTORY: ett nd og Reason for Exam: Upright port, ETT placement FINDINGS: The endotracheal tube terminates 5 cm cephalad to the stephenie. Nasogastric tube has a normal course, distal side port inferior to the gastroesophageal junction right subclavian central line terminates over the right atrium. The cardiac silhouette projects as prominent. Pulmonary vessels are congested. There are patchy opacities in the lung bases. Aeration of the left base is slightly improved. IMPRESSION: Supportive tubing projects in normal position. Vascular congestion. Mild bibasilar atelectasis or airspace disease, with improved aeration on the left in the interval. Interpreted by: Poli Issa MD Signed by: Poli Issa MD 08/29/20 Final result Normal [facility] XR CHEST PORTABLEOrdered By: Cyrus Kenney on 08-29-2020 [employer] Phone: [employer] Phone: [employer] Phone: [employer] Phone: Anti-XaOrdered By: Inessa tilley on 08-28-2020 Heparin LMW 0.09 Low [employer] Phone: Interpretation and review of laboratory results Abnormal [employer] Phone: [employer] Work Phone: Arterial Blood Gas, POCOrder ed By: Magdaleno Wilson on 08-28-2020 Skyler Test NOT REPORTED [employer] Phone: FIO2 60.0 [employer] Phone: Mode PRVC [employer] Work Phone: Negative Base Excess, Art 2 [employer] Work Phone: [phone] O2 Device/Flow/% Adult Ventilator [employer] Work Phone: POC HCO3 25.4 mmol/L 21.0 - 28.0 mmol/L [employer] Phone: POC O2 SAT 100 % High 94.0 - 98.0 % [employer] Phone: POC pCO2 52.0 High [employer] Phone: POC pCO2 Temp NOT REPORTED mm Hg [employer] Phone: POC pH 7.297 Low [employer] Phone: POC pH Temp NOT REPORTED [employer] Phone: POC PO2 243.1 High [employer] Phone: POC pO2 Temp NOT REPORTED mm Hg [employer] Phone: Positive Base Excess, Art NOT REPORTED [employer] Phone: Pt Temp NOT REPORTED [employer] Phone: Sample Site Arterial Line [employer] Phone: TCO2 (calc), Art NOT REPORTED 22.0 - 29.0 mmol/L [employer] Phone: Basic Metabolic PanelOrdered By: Inessa Maldonado on 08-28-2020 Anion gap [Moles/Vol] 10 mmol/L 9 - 17 mmol/L [employer] Phone: Calcium [Mass/Vol] 8.7 mg/dL 8.6 - 10. 4 mg/dL [employer] Phone: Chloride [Moles/Vol] 98 mmol/L 98 - 10 7 mmol/L [employer] Phone: CO2 [Moles/Vol] 28 mmol/L 20 - 31 mmol/L [employer] Phone: Creatinine [Mass/Vol] 1.11 mg/dL 0.70 - 1.20 mg/dL [employer] Phone: GFR >60 >60 mL/min [employer] Phone: GFR Non- >60 >60 mL/min [employer] Phone: GFR/1.73 sq M.predicted MDRD (S/P/Bld) [Vol rate/Area] [employer] Phone: GFR/1.73 sq M.predicted MDRD (S/P/Bld) [Vol rate/Area] NOT REPORTED [employer] Phone: Glucose [Mass/Vol] 183 mg/dL High 70 - 99 mg/dL [facility] [employer] Phone: Interpretation and review of laboratory results Abnormal [employer] Phone: Potassium [Moles/Vol] 3.6 mmol/L Low 3.7 - 5.3 mmol/L [employer] Phone: Sodium [Moles/Vol] 136 mmol/L 135 - 144 mmol/L [employer] Phone: Urea nitrogen (BldV) [Mass/Vol] 25 mg/dL High 8 - 23 mg/dL [employer] Phone: Urea nitrogen/Creatinine (Bld) [Mass ratio] NOT REPORTED [facility] Work Phone: [facility] [employer] Work Phone: Basic Metabolic Profon 08-28 Creatinine [Mass/Vol] 1.11 mg/dL Normal 0.70-1.20 [facility] Comment on above: Result Comment: ICTE ANEUDY SPECIMEN Performed By: #### B PROJECT DEVELOPMENT COORDINATOR, TROPI, LACDS, PT, CMPX, CDP, MG, PRCAL #### [address] [id number] Developing Machine Operator: Nhan Mast MD GFR, Amer >60 Normal >60 [facility] Comment on above: Performed By: #### B PROJECT DEVELOPMENT COORDINATOR, TROPI, LACDS, PT, CMPX, CDP, MG, PRCAL #### [address] [phone] Developing Machine Operator: Nhan Mast MD GFR,non Amer >60 Normal >60 [facility] Comment on above: Performed By: #### B PROJECT DEVELOPMENT COORDINATOR, TROPI, LACDS, PT, CMPX, CDP, MG, PRCAL #### [address] [phone] Developing Machine Operator: Nhan Mast MD (cont.) [facility] Comment on above: Result Comment: Aver age GFR for 60-69 years old: 85 mL/min/1.73sq m Chronic Kidney Disease: <60 mL/min/1.73sq m Kidney failure: <15 mL/min/1.73sq m eGFR calculated using average adult body mass. Additional eGFR calculator available at: http://www.[employer] [place].com/multiple_crcl_2012.htm Performed By: #### B PROJECT DEVELOPMENT COORDINATOR, TROPI, LACDS, PT, CMPX, CDP, MG, PRCAL #### [address] [phone] Developing Machine Operator: Nhan Mast MD Anion gap [Moles/Vol] 10 mmol/L Normal 9-17 [facility] Comment on above: Performed By: #### B PROJECT DEVELOPMENT COORDINATOR, TROPI, LACDS, PT, CMPX, CDP, MG, PRCAL #### [facility] [address] [place] [phone] Developing Machine Operator: Nhan Mast MD Calcium [Mass/Vol] 8.7 mg/dL Normal 8.6-10.4 [facility] Comment on above: Performed By: #### B PROJECT DEVELOPMENT COORDINATOR, TROPI, LACDS, PT, CMPX, CDP, MG, PRCAL #### [facility] [address] [place] [phone] Developing Machine Operator: Nhan Mast MD Chloride [Moles/Vol] 98 mmol/L Normal 98-107 [facility] Comment on above: Performed By: #### B PROJECT DEVELOPMENT COORDINATOR, TROPI, LACDS, PT, CMPX, CDP, MG, PRCAL #### [facility] [address] [place] [address] Developing Machine Operator: Nhan Mast MD CO2 [Moles/Vol] 28 mmol/L Normal 20-31 [facility] Comment on above: Performed By: #### B PROJECT DEVELOPMENT COORDINATOR, TROPI, LACDS, PT, CMPX, CDP, MG, PRCAL #### [facility] [address] [place] [phone] Developing Machine Operator: Nhan Mast MD Glucose [Mass/Vol] 183 mg/dL High 70-99 [facility] Comment on above: Performed By: #### B PROJECT DEVELOPMENT COORDINATOR, TROPI, LACDS, PT, CMPX, CDP, MG, PRCAL #### [facility] [address] [place] [phone] Developing Machine Operator: Nhan Mast MD Potassium [Moles/Vol] 3.6 mmol/L Low 3.7-5.3 [facility] Comment on above: Performed By: #### B PROJECT DEVELOPMENT COORDINATOR, TROPI, LACDS, PT, CMPX, CDP, MG, PRCAL #### [address] [address] Developing Machine Operator: Nhan Mast MD Sodium [Moles/Vol] 136 mmol/L Normal 135-144 [facility] Comment on above: Performed By: #### B PROJECT DEVELOPMENT COORDINATOR, TROPI, LACDS, PT, CMPX, CDP, MG, PRCAL #### [address] [address] Developing Machine Operator: Nhan Mast MD Urea nitrogen [Mass/Vol] 25 mg/dL High 8- [facility] Comment on above: Performed By: #### B PROJECT DEVELOPMENT COORDINATOR, TROPI, LACDS, PT, CMPX, CDP, MG, PRCAL #### [address] [address] Developing Machine Operator: Nhan Mast MD BUN/CRE Ratio NOT REPORTED Normal 11-29 [facility] Comment on above: Performed By: #### B PROJECT DEVELOPMENT COORDINATOR, TROPI, LACDS, PT, CMPX, CDP, MG, PRCAL #### [address] [address] Developing Machine Operator: Nhan Mast MD Staging: NOT REPORTED Normal [facility] Comment on above: Performed By: #### B PROJECT DEVELOPMENT COORDINATOR, TROPI, LACDS, PT, CMPX, CDP, MG, PRCAL #### [address] [address] Developing Machine Operator: Nhan Mast MD CBCon 08-28-2020 Erythrocyte distribution width (RBC) [Ratio] 15.7 % High 11.8-14.4 [facility] Comment on above: Performed By: #### B PROJECT DEVELOPMENT COORDINATOR, TROPI, LACDS, PT, CMPX, CDP, MG, PRCAL #### [address] [address] Developing Machine Operator: Nhan Mast MD Hematocrit (Bld) [Volume fraction] 46.4 % Normal 40.7-50.3 [facility] Comment on above: Performed By: #### B PROJECT DEVELOPMENT COORDINATOR, TROPI, LACDS, PT, CMPX, CDP, MG, PRCAL #### [address] [id number] Developing Machine Operator: Nhan Mast MD Hemoglobin (Bld) [Mass/Vol] 14.1 g/dL Normal 13.0-17.0 [facility] Comment on above: Performed By: #### B PROJECT DEVELOPMENT COORDINATOR, TROPI, LACDS, PT, CMPX, CDP, MG, PRCAL #### [place] [address] Developing Machine Operator: Nhan Mast MD MCH (RBC) [Entitic mass] 27.5 pg Normal 25.2-33.5 [facility] Comment on above: Performed By: #### B PROJECT DEVELOPMENT COORDINATOR, TROPI, LACDS, PT, CMPX, CDP, MG, PRCAL #### [place] [address] Developing Machine Operator: Nhan Mast MD MCHC (RBC) [Mass/Vol] 30.4 g/dL Normal 28.4-34.8 [facility] Comment on above: Performed By: #### B PROJECT DEVELOPMENT COORDINATOR, TROPI, LACDS, PT, CMPX, CDP, MG, PRCAL #### [place] [address] Developing Machine Operator: Nhan Mast MD MCV (RBC) [Entitic vol] 90.6 fL Normal 82.6-102.9 [facility] Comment on above: Performed By: #### B PROJECT DEVELOPMENT COORDINATOR, TROPI, LACDS, PT, CMPX, CDP, MG, PRCAL #### [address] [address] Developing Machine Operator: Nhan Mast MD NRBC Automated 0.0 per 100 WBC Normal 0.0 [facility] Comment on above: Performed By: #### B PROJECT DEVELOPMENT COORDINATOR, TROPI, LACDS, PT, CMPX, CDP, MG, PRCAL #### [address] [address] Developing Machine Operator: Nhan Mast MD Platelet mean volume (Bld) [Entitic vol] 11.2 fL Normal 8.1-13.5 [facility] Comment on above: Performed By: #### B PROJECT DEVELOPMENT COORDINATOR, TROPI, LACDS, PT, CMPX, CDP, MG, PRCAL #### [address] [address] Developing Machine Operator: Nhan Mast MD Platelets (Bld) [#/Vol] 110 10*3/uL Low 138-453 [facility] Comment on above: Performed By: #### B PROJECT DEVELOPMENT COORDINATOR, TROPI, LACDS, PT, CMPX, CDP, MG, PRCAL #### [place] [address] Developing Machine Operator: Nhan Mast MD RBC (Bld) [#/Vol] 5.12 10*6/uL Normal 4.21-5.77 [facility] Comment on above: Performed By: #### B PROJECT DEVELOPMENT COORDINATOR, TROPI, LACDS, PT, CMPX, CDP, MG, PRCAL #### [address] [address] Developing Machine Operator: Nhan Mast MD WBC (Bld) [#/Vol] 16.8 10*3/uL High 3.5-11.3 [facility] Comment on above: Performed By: #### B PROJECT DEVELOPMENT COORDINATOR, TROPI, LACDS, PT, CMPX, CDP, MG, PRCAL #### [address] [address] Developing Machine Operator: Nhan Mast MD Erythrocyte distribution width (RBC) [Ratio] 15.6 % High 11.8-14.4 [facility] Comment on above: Performed By: #### B PROJECT DEVELOPMENT COORDINATOR, TROPI, LACDS, PT, CMPX, CDP, MG, PRCAL #### [address] [address] Developing Machine Operator: Nhan Mast MD Hematocrit (Bld) [Volume fraction] 42.0 % Normal 40.7-50.3 [facility] Comment on above: Performed By: #### B PROJECT DEVELOPMENT COORDINATOR, TROPI, LACDS, PT, CMPX, CDP, MG, PRCAL #### [address] [address] Developing Machine Operator: Nhan Mast MD Hemoglobin (Bld) [Mass/Vol] 12.9 g/dL Low 13.0-17.0 [facility] Comment on above: Performed By: #### B PROJECT DEVELOPMENT COORDINATOR, TROPI, LACDS, PT, CMPX, CDP, MG, PRCAL #### [address] [address] Developing Machine Operator: Nhan Mast MD MCH (RBC) [Entitic mass] 27.3 pg Normal 25.2-33.5 [facility] Comment on above: Performed By: #### B PROJECT DEVELOPMENT COORDINATOR, TROPI, LACDS, PT, CMPX, CDP, MG, PRCAL #### [address] [address] Developing Machine Operator: Nhan Mast MD MCHC (RBC) [Mass/Vol] 30.7 g/dL Normal 28.4-34.8 [facility] Comment on above: Performed By: #### B PROJECT DEVELOPMENT COORDINATOR, TROPI, LACDS, PT, CMPX, CDP, MG, PRCAL #### [address] [address] Developing Machine Operator: Nhan Mast MD MCV (RBC) [Entitic vol] 88.8 fL Normal 82.6-102.9 [facility] Comment on above: Performed By: #### B PROJECT DEVELOPMENT COORDINATOR, TROPI, LACDS, PT, CMPX, CDP, MG, PRCAL #### [address] [address] Developing Machine Operator: Nhan Mast MD NRBC Automated 0.0 per 100 WBC Normal 0.0 [facility] Comment on above: Performed By: #### B PROJECT DEVELOPMENT COORDINATOR, TROPI, LACDS, PT, CMPX, CDP, MG, PRCAL #### [address] [address] Developing Machine Operator: Nhan Mast MD Platelet mean volume (Bld) [Entitic vol] 11.2 fL Normal 8.1-13.5 [facility] Comment on above: Performed By: #### B PROJECT DEVELOPMENT COORDINATOR, TROPI, LACDS, PT, CMPX, CDP, MG, PRCAL #### [address] [address] Developing Machine Operator: Nhan Mast MD Platelets (Bld) [#/Vol] 127 10*3/uL Low 138-453 [facility] Comment on above: Performed By: #### B PROJECT DEVELOPMENT COORDINATOR, TROPI, LACDS, PT, CMPX, CDP, MG, PRCAL #### [address] [address] Developing Machine Operator: Nhan Mast MD RBC (Bld) [#/Vol] 4.73 10*6/uL Normal 4.21-5.77 [facility] Comment on above: Performed By: #### B PROJECT DEVELOPMENT COORDINATOR, TROPI, LACDS, PT, CMPX, CDP, MG, PRCAL #### [address] [address] Developing Machine Operator: Nhan Mast MD WBC (Bld) [#/Vol] 10.2 10*3/uL Normal 3.5-11.3 [facility] Comment on above: Performed By: #### B PROJECT DEVELOPMENT COORDINATOR, TROPI, LACDS, PT, CMPX, CDP, MG, PRCAL #### [address] [address] Developing Machine Operator: Nhan Mast MD CBCOrdered By: Inessa cohen on 08-28-2020 Hematocrit (Bld) [Volume fraction] 46.4 % 40.7 - 50.3 % [employer] Phone: Hemoglobin.gastrointest inal spec 1 Ql (Stl) 14.1 g/dL 13.0 - 17.0 g/dL [employer] Phone: Interpretation and review of laboratory results Abnormal [employer] Phone: MCH (RBC) [Entitic mass] 27.5 pg 25.2 - 33.5 pg [employer] Phone: MCHC (RBC) [Mass/Vol] 30.4 g/dL 28.4 - 34.8 g/dL [employer] Phone: MCV (RBC) [Entitic vol] 90.6 fL 82.6 - 102.9 fL [employer] Phone: NRBC Automated 0.0 0.0 per 100 WBC [employer] Phone: Platelet distribution width (Bld) [Ratio] 15.7 % High 11.8 - 14.4 % [employer] Phone: Platelet mean volume (Bld) [Entitic vol] 11.2 fL 8.1 - 13.5 fL [employer] Phone: Platelets (Bld) [#/Vol] 110 10*3/uL Low [employer] Phone: RBC (Bld) [#/Vol] 5.12 10*6/uL 4.21 - 5.7 7 m/uL [employer] Phone: WBC (Bld) [#/Vol] 16.8 10*3/uL High [employer] Phone: [employer] Phone: CBCOrdered By: Zara harvey on 08-28-2020 Hematocrit (Bld) [Volume fraction] 42.0 % 40.7 - 50.3 % [employer] Phone: Hemoglobin.gastrointest inal spec 1 Ql (Stl) 12.9 g/dL Low 13.0 - 17.0 g/dL [employer] Phone: Interpretation and review of laboratory results Abnormal [employer] Phone: MCH (RBC) [Entitic mass] 27.3 pg 25.2 - 33.5 pg [employer] Phone: MCHC (RBC) [Mass/Vol] 30.7 g/dL 28.4 - 34.8 g/dL [employer] Phone: MCV (RBC) [Entitic vol] 88.8 fL 82.6 - 102.9 fL [employer] Phone: NRBC Automated 0.0 0.0 per 100 WBC [employer] Phone: Platelet distribution width (Bld) [Ratio] 15.6 % High 11.8 - 14.4 % [employer] Phone: Platelet mean volume (Bld) [Entitic vol] 11.2 fL 8.1 - 13.5 fL [employer] Phone: Platelets (Bld) [#/Vol] 127 10*3/uL Low [employer] Phone: RBC (Bld) [#/Vol] 4.73 10*6/uL 4.21 - 5.7 7 m/uL [employer] Phone: WBC (Bld) [#/Vol] 10.2 10*3/uL [employer] Phone: [employer] Phone: COVID-19, RapidOrdered By: Rolan Purcell on 08-28-2020 SARS-CoV-2, Rapid Not detected Not Detected [facility] [employer] Phone: Specimen Description .NA[facility]NGEAL SWAB [facility]: [facility] Phone: CT HEAD WO CONTRASTon 2020 CT HEAD WO CONTRAST EXAMINATION: CT OF THE HEAD WITHOUT CONTRAST 08/28/2020 10:47 am TECHNIQUE: CT of the head was performed without the administration of intravenous contrast. Dose modulation, iterative reconstruction, and/or weight based adjustment of the mA/kV was utilized to reduce the radiation dose to as low as reasonably achievable. COMPARISON: None HISTORY: ORDERING SYSTEM PROVIDED HISTORY: ams TECHNOLOGIST PROVIDED HISTORY: ams Reason for Exam: ams FINDINGS: BRAIN/VENTRICLES: No masses nor acute intracranial hemorrhage. Intact vigil/white matter differentiation without findings of acute ischemia. No mass effect nor midline shift. Patent basilar cisterns and foramen magnum. No hydrocephalus. Minimal diffuse atrophy. ORBITS: Bilateral lens implants and proptosis. No evident acute abnormality. SINUSES: Mucocele or sinonasal polyp in the right maxillary sinus. Additional polypoid filling defects in the left ethmoid and right sphenoid sinuses potentially due to mucoceles, sinonasal polyps, focal secretions, or focal mucoperiosteal thickening. SOFT TISSUES/SKULL: No acute soft tissue abnormality. Moderate atherosclerotic calcifications. No acute fracture. Edentulous. IMPRESSION: No acute intracranial abnormality. Interpreted by: Fredy Kearns MD Signed by: Fredy Kearns MD 08/28/20 Final result Normal [facility] CT HEAD WO CONTRASTOrdered B y: Main Ascencio on 08-28-2020 [facility] Phone: [facility] Phone: [facility] Phone: CULTURE URINEon 08-28-2020 CULTURE URINE Isolate 1 Enterobacter cloacae complex >100,000 cfu/mL of ORGANISM 1 Enterobacter cloacae complex ANTIBIOTIC M.I.C RX STATUS Piperacillin/Tazobacta m 64 I F Cefazolin >=64 R F Ceftazidime 4 S F Ceftriaxone 16 I F Ertapenem 2 S F Imipenem 0.5 S F Amikacin <=2 S F Gentamicin <=1 S F Tobramycin <=1 S F Ciprofloxacin <=0.25 S F Levofloxacin <=0.12 S F Nitrofurantoin 64 I F Trimethoprim/Sulfameth oxazole <=20 S F Normal [facility] Comment on above: Performed By: #### U RCX #### [facility] [address] [place] [address] Mary Short Comp Metabolic Pr/rfx MGon 0 08-28-2020 (cont.) Normal [facility] Comment on above: Result Comment: Aver age GFR for 60-69 years old: 85 mL/min/1.73sq m Chronic Kidney Disease: <60 mL/min/1.73sq m Kidney failure: <15 mL/min/1.73sq m eGFR calculated using average adult body mass. Additional eGFR calculator available at: http://www.MILI/multiple_crcl_2012.htm Performed By: #### B PROJECT DEVELOPMENT COORDINATOR, TROPI, LACDS, PT, CMPX, CDP, MG, PRCAL #### [facility] [employer] [address] [place] [address] Developing Machine Operator: Nhan Mast MD Albumin [Mass/Vol] 2.5 g/dL Low 3.5-5.2 [facility] Comment on above: Performed By: #### B PROJECT DEVELOPMENT COORDINATOR, TROPI, LACDS, PT, CMPX, CDP, MG, PRCAL #### [facility] [address] [place], [place] [id number] Developing Machine Operator: Nhan Mast MD Albumin/Glob Ratio 0.8 Low 1.0-2.5 [facility] Comment on above: Performed By: #### B PROJECT DEVELOPMENT COORDINATOR, TROPI, LACDS, PT, CMPX, CDP, MG, PRCAL #### [facility] [employer] [address] [place], [place] [id number] Developing Machine Operator: Nhan Mast MD Alkaline Phos 307 U/L High 40-129 [facility] Comment on above: Performed By: #### B PROJECT DEVELOPMENT COORDINATOR, TROPI, LACDS, PT, CMPX, CDP, MG, PRCAL #### [address] [address] Developing Machine Operator: Nhan Mast MD ALT [Catalytic activity/Vol] 49 U/L High 5-41 [facility] Comment on above: Performed By: #### B PROJECT DEVELOPMENT COORDINATOR, TROPI, LACDS, PT, CMPX, CDP, MG, PRCAL #### [address] [address] Developing Machine Operator: Nhan Mast MD Anion gap [Moles/Vol] 7 mmol/L Low 9-17 [facility] Comment on above: Performed By: #### B PROJECT DEVELOPMENT COORDINATOR, TROPI, LACDS, PT, CMPX, CDP, MG, PRCAL #### [address] [address] Developing Machine Operator: Nhan Mast MD AST [Catalytic activity/Vol] 50 U/L High <40 [facility] Comment on above: Performed By: #### B PROJECT DEVELOPMENT COORDINATOR, TROPI, LACDS, PT, CMPX, CDP, MG, PRCAL #### [address] [address] Developing Machine Operator: Nhan Mast MD Bilirubin [Mass/Vol] 5.98 mg/dL High 0.3-1.2 [facility] Comment on above: Performed By: #### B PROJECT DEVELOPMENT COORDINATOR, TROPI, LACDS, PT, CMPX, CDP, MG, PRCAL #### [address] [address] Developing Machine Operator: Nhan Mast MD Calcium [Mass/Vol] 8.7 mg/dL Normal 8.6-10.4 [facility] Comment on above: Performed By: #### B PROJECT DEVELOPMENT COORDINATOR, TROPI, LACDS, PT, CMPX, CDP, MG, PRCAL #### [address] [address] Developing Machine Operator: Nhan Mast MD Chloride [Moles/Vol] 98 mmol/L Normal 98-107 [facility] Comment on above: Performed By: #### B PROJECT DEVELOPMENT COORDINATOR, TROPI, LACDS, PT, CMPX, CDP, MG, PRCAL #### [address] [address] Developing Machine Operator: Nhan Mast MD CO2 [Moles/Vol] 30 mmol/L Normal 20-31 [facility] Comment on above: Performed By: #### B PROJECT DEVELOPMENT COORDINATOR, TROPI, LACDS, PT, CMPX, CDP, MG, PRCAL #### [address] [address] Developing Machine Operator: Nhan Mast MD Creatinine [Mass/Vol] 0.75 mg/dL Normal 0.70-1.20 [facility] Comment on above: Result Comment: ICTE ANEUDY SPECIMEN Performed By: #### B PROJECT DEVELOPMENT COORDINATOR, TROPI, LACDS, PT, CMPX, CDP, MG, PRCAL #### [facility] [employer] [address] [place] [address] Developing Machine Operator: Nhan Mast MD GFR, Amer >60 Normal >60 [facility] Comment on above: Performed By: #### B PROJECT DEVELOPMENT COORDINATOR, TROPI, LACDS, PT, CMPX, CDP, MG, PRCAL #### [facility] [employer] [address] [place] [address] Developing Machine Operator: Nhan Mast MD GFR,non Amer >60 Normal >60 [facility] Comment on above: Performed By: #### B PROJECT DEVELOPMENT COORDINATOR, TROPI, LACDS, PT, CMPX, CDP, MG, PRCAL #### [facility] [employer] [address] [place] [address] Developing Machine Operator: Nhan Mast MD Glucose [Mass/Vol] 211 mg/dL High 70-99 [facility] Comment on above: Performed By: #### B PROJECT DEVELOPMENT COORDINATOR, TROPI, LACDS, PT, CMPX, CDP, MG, PRCAL #### [address] [address] Developing Machine Operator: Nhan Mast MD Potassium [Moles/Vol] 4.3 mmol/L Normal 3.7-5.3 [facility] Comment on above: Performed By: #### B PROJECT DEVELOPMENT COORDINATOR, TROPI, LACDS, PT, CMPX, CDP, MG, PRCAL #### [address] [address] Developing Machine Operator: Nhan Mast MD Protein [Mass/Vol] 5.8 g/dL Low 6.4-8.3 [facility] Comment on above: Performed By: #### B PROJECT DEVELOPMENT COORDINATOR, TROPI, LACDS, PT, CMPX, CDP, MG, PRCAL #### [address] [address] Developing Machine Operator: Nhan Mast MD Sodium [Moles/Vol] 135 mmol/L Normal 135-144 [facility] Comment on above: Performed By: #### B PROJECT DEVELOPMENT COORDINATOR, TROPI, LACDS, PT, CMPX, CDP, MG, PRCAL #### [address] [address] Developing Machine Operator: Nhan Mast MD Urea nitrogen [Mass/Vol] 22 mg/dL Normal 8-23 [facility] Comment on above: Performed By: #### B PROJECT DEVELOPMENT COORDINATOR, TROPI, LACDS, PT, CMPX, CDP, MG, PRCAL #### [address] [address] Developing Machine Operator: Nhan Mast MD BUN/CRE Ratio NOT REPORTED Normal 9-20 [facility] Comment on above: Performed By: #### B PROJECT DEVELOPMENT COORDINATOR, TROPI, LACDS, PT, CMPX, CDP, MG, PRCAL #### [facility] [address] [place], [place] [id number] Developing Machine Operator: Nhan Mast MD Staging: NOT REPORTED Normal [facility] Comment on above: Performed By: #### B PROJECT DEVELOPMENT COORDINATOR, TROPI, LACDS, PT, CMPX, CDP, MG, PRCAL #### [facility] [address] [place], [place] [id number] Developing Machine Operator: Nhan Mast MD Comprehensive Metabolic Pane l w/ Reflex to MGOrdered By: Zara Ferreira on 08-28-2020 Albumin [Mass/Vol] 2.5 g/dL Low 3.5 - 5.2 g/dL [employer] Phone: Albumin/Globulin [Mass ratio] 0.8 {ratio} Low [employer] Phone: ALP (Bld) [Catalytic activity/Vol] 307 U/L High 40 - 129 U/L [employer] Phone: ALT [Catalytic activity/Vol] 49 U/L High 5 - 41 U/L [employer] Phone: Anion gap [Moles/Vol] 7 mmol/L Low 9 - 17 mmol/L [employer] Phone: AST [Catalytic activity/Vol] 50 U/L High <40 [employer] Phone: Bilirubin [Mass/Vol] 5.98 mg/dL High 0.3 - 1 .2 mg/dL [employer] Phone: Calcium [Mass/Vol] 8.7 mg/dL 8.6 - 10. 4 mg/dL [employer] Phone: Chloride [Moles/Vol] 98 mmol/L 98 - 10 7 mmol/L [employer] Phone: CO2 [Moles/Vol] 30 mmol/L 20 - 31 mmol/L [employer] Phone: Creatinine [Mass/Vol] 0.75 mg/dL 0.70 - 1.20 mg/dL [employer] Phone: Free PSA/Total PSA [Mass fraction] 5.8 g/dL Low 6.4 - 8.3 g/dL [employer] Phone: GFR >60 >60 mL/min [employer] Phone: GFR Non- >60 >60 mL/min [employer] Phone: GFR/1.73 sq M.predicted MDRD (S/P/Bld) [Vol rate/Area] [employer] Phone: GFR/1.73 sq M.predicted MDRD (S/P/Bld) [Vol rate/Area] NOT REPORTED [employer] Phone: Glucose [Mass/Vol] 211 mg/dL High 70 - 99 mg/dL [facility] [employer] Phone: Interpretation and review of laboratory results Abnormal [employer] Phone: Potassium [Moles/Vol] 4.3 mmol/L 3.7 - 5.3 mmol/L [employer] Phone: Sodium [Moles/Vol] 135 mmol/L 135 - 144 mmol/L [employer] Phone: Urea nitrogen (BldV) [Mass/Vol] 22 mg/dL 8 - 23 mg/dL [employer] Phone: Urea nitrogen/Creatinine (Bld) [Mass ratio] NOT REPORTED [employer] Phone: [employer] Phone: EKG 12 LeadOrdered By: Shahnaz Nieves on 08-28-2020 Atrial Rate 126 BPM [employer] Phone: P [place] 24 degrees [employer] Phone: P-R Interval 164 ms [employer] Phone: [phone] Q-T Interval 302 ms [employer] Phone: QRS Duration 80 ms [employer] Phone: QTc Calculation (Bazett) 437 ms [employer] Phone: R [place] 23 degrees [employer] Phone: T [place] 55 degrees [employer] Phone: Ventricular Rate 126 BPM [employer] Phone: [employer] Phone: [employer] Phone: [employer] Phone: FFP, Transfuseon 08-28-2020 FFP, Transfuse Unit Number [id number] Blood Component Type Fresh Plasma Unit Division 00 Status of Unit TRANSFUSED Transfusion Status OK TO TRANSFUSE Unit Number [id number] Blood Component Type Fresh Plasma Unit Division 00 Status of Unit TRANSFUSED Transfusion Status OK TO TRANSFUSE Normal [facility] Comment on above: Performed By: #### B PROJECT DEVELOPMENT COORDINATOR, TROPI, LACDS, PT, CMPX, CDP, MG, PRCAL #### [facility] [address] [place] [address] Developing Machine Operator: Nhan Mast MD FFP, Transfuse Unit Number [id number] Blood Component Type Fresh Plasma Unit Division 00 Status of Unit TRANSFUSED Transfusion Status OK TO TRANSFUSE Normal [facility] Comment on above: Performed By: #### B PROJECT DEVELOPMENT COORDINATOR, TROPI, LACDS, PT, CMPX, CDP, MG, PRCAL #### [facility] [address] [place] [address] Developing Machine Operator: Nhan Mast MD FLUORO FOR SURGICAL PROCEDUR ESon 08-28-2020 FLUORO FOR SURGICAL PROCEDURES Radiology exam is complete. No Radiologist dictation. Please follow up with ordering provider. Final result Normal [facility] FLUORO FOR SURGICAL PROCEDUR ESOrdered By: Alexis Ramon on 08-28-2020 [facility] [employer] Phone: [facility] [employer] Phone: Lactic Acid, POCOrdered By: Magdaleno Wilson on 08-28-2020 POC Lactic Acid 0.86 mmol/L 0.56 - 1.39 mmol/L [facility] [employer] Phone: Low Mol Wt Heparinon 021 Low Mol Wt Heparin 0.09 IU/mL Low 0.5-1.1 [facility] Comment on above: Result Comment: The therapeutic range for low molecular Heparins varies with the type and auto brake mechanic. The maximum anti Factor Xa and anti thrombin (anti Factor IIa) activities occur 3 to 5 hours after the SC injection of Low Molecular Weight Heparin. Optimal time for testing is 4 hours after dose. This test is not suitable for patients receiving protamine sulfate treatment. Performed By: #### B PROJECT DEVELOPMENT COORDINATOR, TROPI, LACDS, PT, CMPX, CDP, MG, PRCAL #### [facility] [address] [place] [phone] Developing Machine Operator: Nhan Mast MD MRSA, DNA, Nasalon Specimen Description .NASAL SWAB Normal [facility] Comment on above: Performed By: #### B PROJECT DEVELOPMENT COORDINATOR, TROPI, LACDS, PT, CMPX, CDP, MG, PRCAL #### [facility] [address] [place] [phone] Developing Machine Operator: Nhan Mast MD Magnesiumon 7 Magnesium [Mass/Vol] 1.6 mg/dL Normal 1.6-2.6 [facility] Comment on above: Performed By: #### B PROJECT DEVELOPMENT COORDINATOR, TROPI, LACDS, PT, CMPX, CDP, MG, PRCAL #### [facility] [address] [place] [phone] Developing Machine Operator: Nhan Mast MD MagnesiumOrdered By: Alexis Ramon on 08-28-2020 Magnesium [Mass/Vol] 1.6 mg/dL 1.6 - 2 .6 mg/dL [employer] Phone: [employer] Phone: No Panel InformationOrdered By: Magdaleno Wilson on 08-28-2020 Interpretation and review of laboratory results Abnormal [employer] Phone: [employer] Phone: POC Glucose FingerstickOrder ed By: Magdaleno Wilson on 08-28-2020 Glucose [Mass/Vol] 185 mg/dL High 75 - 110 mg/dL [employer] Phone: Interpretation and review of laboratory results Abnormal [employer] Phone: [employer] Phone: Glucose [Mass/Vol] 180 mg/dL High 75 - 110 mg/dL [employer] Phone: Interpretation and review of laboratory results Abnormal [employer] Phone: [employer] Phone: POC Glucose FingerstickOrder ed By: Main Ascencio on 08-28-2020 Glucose [Mass/Vol] 171 mg/dL High 75 - 110 mg/dL [employer] Phone: Interpretation and review of laboratory results Abnormal [employer] Phone: [employer] Phone: Glucose [Mass/Vol] 216 mg/dL High 75 - 110 mg/dL [employer] Phone: Interpretation and review of laboratory results Abnormal [employer] Phone: [employer] Phone: POCT GlucoseOrdered By: Aftab Wilson on 08-28-2020 Glucose [Mass/Vol] 221 mg/dL High 74 - 100 mg/dL [employer] Phone: PREPARE FRESH FROZEN PLASMA, 2 UnitsOrdered By: Maty Nieves on 08-28-2020 Blood product type Nom (BPU) T1624 [employer] Phone: Dispense Status TRANSFUSED [employer] Phone: Transfusion Status OK TO TRANSFUSE [facility]: Unit Divison 0 [employer] Phone: Unit Number [id number] [employer] Phone: Unit Number [id number] [employer] Phone: [employer] Phone: PROTIME-INROrdered By: Main Ascencio on 08-28-2020 INR Coag (Bld) [Relative time] 7.9 {INR} Critically high [employer] Phone: Interpretation and review of laboratory results Abnormal [employer] Phone: PT Coag (PPP) [Time] 71.4 s High [employer] Phone: [employer] Phone: PTon 08-28-2020 INR Coag (PPP) [Relative time] 1.8 {INR} Normal [facility] Comment on above: Result Comment: Therapeutic Range: Moderate Anticoagulant Intensity: INR = 2.0-3.0 High Anticoagulant Intensity: INR = 2.5-3.5 Performed By: #### B PROJECT DEVELOPMENT COORDINATOR, TROPI, LACDS, PT, CMPX, CDP, MG, PRCAL #### [facility] [place] [address] Developing Machine Operator: Nhan Mast MD PT Coag (PPP) [Time] 17.9 s High 9.1-12.3 [facility] Comment on above: Performed By: #### B PROJECT DEVELOPMENT COORDINATOR, TROPI, LACDS, PT, CMPX, CDP, MG, PRCAL #### [facility] [employer] [address] [place] [address] [phone] Developing Machine Operator: Nhan Mast MD INR Coag (PPP) [Relative time] 2.0 {INR} Normal [facility] Comment on above: Result Comment: Therapeutic Range: Moderate Anticoagulant Intensity: INR = 2.0-3.0 High Anticoagulant Intensity: INR = 2.5-3.5 Performed By: #### B PROJECT DEVELOPMENT COORDINATOR, TROPI, LACDS, PT, CMPX, CDP, MG, PRCAL #### [facility] [employer] [address] [place] [address] [phone] Developing Machine Operator: Nhan Mast MD PT Coag (PPP) [Time] 19.8 s High 9.1-12.3 [facility] Comment on above: Performed By: #### B PROJECT DEVELOPMENT COORDINATOR, TROPI, LACDS, PT, CMPX, CDP, MG, PRCAL #### [facility] [employer] [address] [place] [address] [phone] Developing Machine Operator: Nhan Mast MD INR Coag (PPP) [Relative time] 7.9 {INR} Critically high [facility] Comment on above: Result Comment: Therapeutic Range: Moderate Anticoagulant Intensity: INR = 2.0-3.0 High Anticoagulant Intensity: INR = 2.5-3.5 Performed By: #### B PROJECT DEVELOPMENT COORDINATOR, TROPI, LACDS, PT, CMPX, CDP, MG, PRCAL #### [facility] [employer] [address] [place] [address] [phone] Developing Machine Operator: Nhan Mast MD PT Coag (PPP) [Time] 71.4 s High 9.1-12.3 [facility] Comment on above: Performed By: #### B PROJECT DEVELOPMENT COORDINATOR, TROPI, LACDS, PT, CMPX, CDP, MG, PRCAL #### [facility] [employer] [address] [place] [address] [phone] Developing Machine Operator: Nhan Mast MD INR Coag (PPP) [Relative time] 12.7 {INR} Critically high [facility] Comment on above: Result Comment: Therapeutic Range: Moderate Anticoagulant Intensity: INR = 2.0-3.0 High Anticoagulant Intensity: INR = 2.5-3.5 Performed By: #### B PROJECT DEVELOPMENT COORDINATOR, TROPI, LACDS, PT, CMPX, CDP, MG, PRCAL #### [facility] [address] [place] [address] [phone] Developing Machine Operator: Nhan Mast MD PT Coag (PPP) [Time] 110.3 s High 9.1-12.3 [facility] Comment on above: Performed By: #### B PROJECT DEVELOPMENT COORDINATOR, TROPI, LACDS, PT, CMPX, CDP, MG, PRCAL #### [facility] [employer] [address] [place] [address] [phone] Developing Machine Operator: Nhan Mast MD Protime-INROrdered By: Karan Maldonado on 08-28-2020 INR Coag (Bld) [Relative time] 1.8 {INR} [facility] [employer] Work Phone: Interpretation and review of laboratory results Abnormal [employer] Phone: PT Coag (PPP) [Time] 17.9 s High [employer] Phone: [employer] Phone: Protime-INROrdered By: Alvaro Purcell on 08-28-2020 INR Coag (Bld) [Relative time] 2.0 {INR} [facility] [employer] Work Phone: Interpretation and review of laboratory results Abnormal [employer] Work Phone: PT Coag (PPP) [Time] 19.8 s High [facility] Work Phone: [employer] Phone: Protime-INROrdered By: Kathe Ferreira on 08-28-2020 INR Coag (Bld) [Relative time] 12.7 {INR} Critically high [facility] [employer] Work Phone: Interpretation and review of laboratory results Abnormal [facility] [employer] Phone: PT Coag (PPP) [Time] 110.3 s High [facility] [employer] Phone: [facility] [employer] Phone: [id number] 08-28-2020 SARS-CoV-2 (COVID-19) RNA RAMANDEEP+probe Ql (Unsp spec) Not detected Normal NOTDET [facility] Comment on above: Result Comment: Rapid NAAT: The specimen is NEGATIVE for SARS-CoV-2, the novel coronavirus associated with COVID-19. The ID NOW COVID-19 assay is designed to detect the virus that causes COVID-19 in patients with signs and symptoms of infection who are suspected of COVID-19. An individual without symptoms of COVID-19 and who is not shedding SARS-CoV-2 virus would expect to have a negative (not detected) result in this assay. Negative results should be treated as presumptive and, if inconsistent with clinical signs and symptoms or necessary for patient management, should be tested with an alternative molecular assay. Negative results do not preclude SARS-CoV-2 infection and should not be used as the sole basis for patient management decisions. Fact sheet for Healthcare Providers: https://www.fda.gov/media/060468/download Fact sheet for Patients: https://www.fda.gov/media/234793/download Methodology: Isothermal Nucleic Acid Amplification Performed By: #### B PROJECT DEVELOPMENT COORDINATOR, TROPI, LACDS, PT, CMPX, CDP, MG, PRCAL #### [facility] [place] [address] Developing Machine Operator: Nhan Mast MD Troponinon 08-28-2020 Troponin, High Sens 27 ng/L High 0-22 [facility] Comment on above: Result Comment: High Sensitivity Troponin values cannot be compared with other Troponin methodologies. Patients with high levels of Biotin oral intake (i.e >5mg/day) may have falsely decreased Troponin levels. Samples collected within 8 hours of biotin intake may require additional information for diagnosis. Performed By: #### B PROJECT DEVELOPMENT COORDINATOR, TROPI, LACDS, PT, CMPX, CDP, MG, PRCAL #### [facility] [address] [place] [address] [phone] Developing Machine Operator: Nhan Mast MD Troponin Interp. NOT REPORTED Normal [facility] Comment on above: Performed By: #### B PROJECT DEVELOPMENT COORDINATOR, TROPI, LACDS, PT, CMPX, CDP, MG, PRCAL #### [facility] [address] [place] [address] [phone] Developing Machine Operator: Nhan Mast MD Troponin T NOT REPORTED Normal <0.03 [facility] Comment on above: Performed By: #### B PROJECT DEVELOPMENT COORDINATOR, TROPI, LACDS, PT, CMPX, CDP, MG, PRCAL #### [facility] [address] [place] [address] [phone] Developing Machine Operator: Nhan Mast MD Troponin, High Sens 26 ng/L High 0-22 [facility] Comment on above: Result Comment: High Sensitivity Troponin values cannot be compared with other Troponin methodologies. Patients with high levels of Biotin oral intake (i.e >5mg/day) may have falsely decreased Troponin levels. Samples collected within 8 hours of biotin intake may require additional information for diagnosis. Performed By: #### B PROJECT DEVELOPMENT COORDINATOR, TROPI, LACDS, PT, CMPX, CDP, MG, PRCAL #### [facility] [address] [place] [address] [phone] Developing Machine Operator: Nhan Mast MD TroponinOrdered By: Maty milian on 08-28-2020 Interpretation and review of laboratory results Abnormal [employer] Phone: Troponin Interp NOT REPORTED [employer] Phone: Troponin T NOT REPORTED <0.03 ng/mL [employer] Phone: Troponin, High Sensitivity 27 ng/L High 0 - 22 ng/L [employer] Phone: [employer] Phone: XR CHEST PORTABLEon 08-29-19 XR CHEST PORTABLE EXAMINATION: ONE XRAY VIEW OF THE CHEST 08/28/2020 3:09 pm COMPARISON: None. HISTORY: ORDERING SYSTEM PROVIDED HISTORY: central line placement TECHNOLOGIST PROVIDED HISTORY: central line placement FINDINGS: There is suboptimal inspiration. Right central venous catheter with tip in the right atrium. The cardiac size is mildly enlarged. No acute infiltrates or pleural effusions are seen. Pulmonary vascularity appears hazy and indistinct. There is mild ectasia of the thoracic aorta. There are degenerative changes in the spine . No acute bony abnormalities. No pneumothorax IMPRESSION: Possible mild pulmonary vascular congestion Interpreted by: Kelvin Hernandez MD Signed by: Kelvin Hernandez MD 08/28/20 Final result Normal [facility] XR CHEST PORTABLEOrdered By: Magdaleno Wilson on 08-28-2020 [employer] Phone: [employer] Phone: [employer] Phone: [employer] Phone: Arterial Blood Gas, POCOrder ed By: Jesus Poe on 08-27-2020 Skyler Test Positive [employer] Phone: FIO2 4.0 [employer] Phone: Mode NOT REPORTED [employer] Phone: Negative Base Excess, Art NOT REPORTED [employer] Phone: O2 Device/Flow/% NOT REPORTED [employer] Phone: POC HCO3 27.7 mmol/L 21.0 - 28.0 mmol/L [employer] Phone: POC O2 SAT 96 % 94.0 - 98.0 % [employer] Phone: POC pCO2 49.3 High [employer] Phone: POC pCO2 Temp NOT REPORTED mm Hg [facility] [employer] Work Phone: POC pH 7.358 [facility] Work Phone: POC pH Temp NOT REPORTED [facility] Work Phone: POC PO2 88.4 [facility] Work Phone: POC pO2 Temp NOT REPORTED mm Hg [facility] Work Phone: Positive Base Excess, Art 1 [facility] Work Phone: Pt Temp NOT REPORTED [facility] Work Phone: Sample Site Right Radial Ar[employer] Work Phone: TCO2 (calc), Art NOT REPORTED 22.0 - 29.0 mmol/L [employer] Phone: BLOOD BANK SPECIMENOrdered B y: Jesus Poe on 08-27-2020 Blood Bank Specimen NOT REPORTED [facility] [employer] Work Phone: [employer] Phone: Blood Bank Specimenon 2020 Blood Bank Specimen NOT REPORTED Normal [facility] Brain Natri. Peptideon 08-27 BNP Interpretation Pro-BNP Reference Range: Normal [facility] Comment on above: Result Comment: Rule Out: <300 [place] Zone: Age <50 300-450 Age 50-75 300-900 Age >75 300-1800 Usually represents mild to moderate HF but other cardiopulmonary causes cannot be ruled out. Rule In: Age <50 >450 Age 50-75 >900 Age >75 >1800 Performed By: #### B PROJECT DEVELOPMENT COORDINATOR, TROPI, LACDS, PT, CMPX, CDP, MG, PRCAL #### [facility] [address] [place] [address] [phone] Developing Machine Operator: Nhan Mast MD Natriuretic peptide B (Bld) [Mass/Vol] 456 pg/mL High <300 [facility] Comment on above: Result Comment: Pro- BNP results cannot be compared to BNP results. Performed By: #### B PROJECT DEVELOPMENT COORDINATOR, TROPI, LACDS, PT, CMPX, CDP, MG, PRCAL #### [facility] [address] [place] [address] Developing Machine Operator: Nhan Mast MD Brain Natriuretic PeptideOrd ered By: Maty Nieves on 08-27-2020 BNP Interpretation Pro-BNP Reference Range: [employer] Phone: Pro-BNP 456 pg/mL High <300 [employer] Phone: CALCIUM, IONIC (POC)Ordered By: Jesus Poe on 08-27-2020 POC Ionized Calcium 1.17 mmol/L 1.15 - 1 .33 mmol/L [employer] Phone: CBC WITH AUTO DIFFERENTIALOr dered By: Maty Nieves on 08-27-2020 Absolute Eos # 0.00 [employer] Phone: Absolute Immature Granulocyte 0.30 [employer] Phone: Absolute Lymph # 0.45 Low [employer] Phone: Absolute Rooks # 0.60 [employer] Phone: Basophils (Bld) [#/Vol] 0.00 10*3/uL [employer] Phone: Basophils/100 WBC (Bld) 0 % 0 - 2 % M [employer] Phone: Differential Type NOT REPORTED [employer] Phone: Eosinophils/100 WBC (Bld) 0 % Low 1 - 4 % [employer] Phone: Hematocrit (Bld) [Volume fraction] 47.8 % 40.7 - 50.3 % [employer] Phone: Hemoglobin.gastrointest inal spec 1 Ql (Stl) 15.2 g/dL 13.0 - 17.0 g/dL [employer] Phone: Immature Granulocytes 2 % High 0 [facility] [employer] Phone: Interpretation and review of laboratory results Abnormal [employer] Phone: Lymphocytes/100 WBC (Bld) 3 % Low 24 - 44 % [employer] Phone: MCH (RBC) [Entitic mass] 27.7 pg 25.2 - 33.5 pg [employer] Phone: MCHC (RBC) [Mass/Vol] 31.8 g/dL 28.4 - 34.8 g/dL [employer] Phone: MCV (RBC) [Entitic vol] 87.2 fL 82.6 - 102.9 fL [employer] Phone: Monocytes/100 WBC (Bld) 4 % 1 - 7 % [facility] Phone: Morphology Akshat (Bld) [Interp] ANISOCYTOSIS PRESENT [employer] Phone: Morphology Akshat (Bld) [Interp] INCREASED BANDS PRESENT [employer] Phone: NRBC Automated 0.0 0.0 per 100 WBC [employer] Phone: Platelet distribution width (Bld) [Ratio] 15.2 % High 11.8 - 14.4 % [employer] Phone: Platelet Estimate NOT REPORTED [employer] Phone: Platelet mean volume (Bld) [Entitic vol] 10.8 fL 8.1 - 13.5 fL [employer] Phone: Platelets (Bld) [#/Vol] 139 10*3/uL [employer] Phone: RBC (Bld) [#/Vol] 5.48 10*6/uL 4.21 - 5.7 7 m/uL [employer] Phone: RBC (Bld) [#/Vol] NOT REPORTED [employer] Phone: Seg Neutrophils 91 % High 36 - 66 % [employer] Phone: Segs Absolute 13.75 High [employer] Phone: WBC (Bld) [#/Vol] 15.1 10*3/uL High [employer] Phone: WBC (Bld) [#/Vol] NOT REPORTED [employer] Phone: [employer] Phone: CBC with Diffon 08-27-2020 Abs. Basophil 0.00 k/uL Normal 0.0-0.2 [facility] Comment on above: Performed By: #### B PROJECT DEVELOPMENT COORDINATOR, TROPI, LACDS, PT, CMPX, CDP, MG, PRCAL #### [facility] [employer] [address] [place] [address] Developing Machine Operator: Nhan aMst MD Abs.Imm.Granulocyte 0.30 k/uL Normal 0.00-0.30 [facility] Comment on above: Performed By: #### B PROJECT DEVELOPMENT COORDINATOR, TROPI, LACDS, PT, CMPX, CDP, MG, PRCAL #### [facility] [employer] [address] [place] [address] Developing Machine Operator: Nhan Mast MD Abs.Neutrophil (Seg) 13.75 k/uL High 1.8-7.7 [facility] Comment on above: Performed By: #### B PROJECT DEVELOPMENT COORDINATOR, TROPI, LACDS, PT, CMPX, CDP, MG, PRCAL #### [facility] [employer] [address] [place] [address] Developing Machine Operator: Nhan Mast MD Basophils/100 WBC (Bld) 0 % Normal 0-2 M [facility] Comment on above: Performed By: #### B PROJECT DEVELOPMENT COORDINATOR, TROPI, LACDS, PT, CMPX, CDP, MG, PRCAL #### [place] [address] Developing Machine Operator: Nhan Mast MD Eosinophils (Bld) [#/Vol] 0.00 10*3/uL Normal 0.0-0.4 [facility] Comment on above: Performed By: #### B PROJECT DEVELOPMENT COORDINATOR, TROPI, LACDS, PT, CMPX, CDP, MG, PRCAL #### [place] [address] Developing Machine Operator: Nhan Mast MD Eosinophils/100 WBC (Bld) 0 % Low 1-4 [facility] Comment on above: Performed By: #### B PROJECT DEVELOPMENT COORDINATOR, TROPI, LACDS, PT, CMPX, CDP, MG, PRCAL #### [place] [address] Developing Machine Operator: Nhan Mast MD Immature granulocytes/100 WBC (Bld) 2 % High 0 [facility] Comment on above: Performed By: #### B PROJECT DEVELOPMENT COORDINATOR, TROPI, LACDS, PT, CMPX, CDP, MG, PRCAL #### [place] [address] Developing Machine Operator: Nhan Mast MD Lymphocytes (Bld) [#/Vol] 0.45 10*3/uL Low 1.0-4.8 [facility] Comment on above: Performed By: #### B PROJECT DEVELOPMENT COORDINATOR, TROPI, LACDS, PT, CMPX, CDP, MG, PRCAL #### [place] [address] Developing Machine Operator: Nhan Mast MD Lymphocytes/100 WBC (Bld) 3 % Low 24-44 [facility] Comment on above: Performed By: #### B PROJECT DEVELOPMENT COORDINATOR, TROPI, LACDS, PT, CMPX, CDP, MG, PRCAL #### [address] [place] [address] Developing Machine Operator: Nhan Mast MD Monocytes (Bld) [#/Vol] 0.60 10*3/uL Normal 0.1-0.8 [facility] Comment on above: Performed By: #### B PROJECT DEVELOPMENT COORDINATOR, TROPI, LACDS, PT, CMPX, CDP, MG, PRCAL #### [place] [address] Developing Machine Operator: Nhan Mast MD Monocytes/100 WBC (Bld) 4 % Normal 1-7 M [facility] Comment on above: Performed By: #### B PROJECT DEVELOPMENT COORDINATOR, TROPI, LACDS, PT, CMPX, CDP, MG, PRCAL #### [place] [address] Developing Machine Operator: Nhan Mast MD Morphology Akshat (Bld) [Interp] ANISOCYTOSIS PRESENT Normal [facility] Comment on above: Result Comment: INCR EASED BANDS PRESENT Performed By: #### B PROJECT DEVELOPMENT COORDINATOR, TROPI, LACDS, PT, CMPX, CDP, MG, PRCAL #### [place] [address] Developing Machine Operator: Nhan Mast MD Neutrophil (Seg) 91 % High 36-66 [facility] Comment on above: Performed By: #### B PROJECT DEVELOPMENT COORDINATOR, TROPI, LACDS, PT, CMPX, CDP, MG, PRCAL #### [place] [address] Developing Machine Operator: Nhan Mast MD Erythrocyte distribution width (RBC) [Ratio] 15.2 % High 11.8-14.4 [facility] Comment on above: Performed By: #### B PROJECT DEVELOPMENT COORDINATOR, TROPI, LACDS, PT, CMPX, CDP, MG, PRCAL #### [address] [address] Developing Machine Operator: Nhan Mast MD Hematocrit (Bld) [Volume fraction] 47.8 % Normal 40.7-50.3 [facility] Comment on above: Performed By: #### B PROJECT DEVELOPMENT COORDINATOR, TROPI, LACDS, PT, CMPX, CDP, MG, PRCAL #### [address] [address] Developing Machine Operator: Nhan Mast MD Hemoglobin (Bld) [Mass/Vol] 15.2 g/dL Normal 13.0-17.0 [facility] Comment on above: Performed By: #### B PROJECT DEVELOPMENT COORDINATOR, TROPI, LACDS, PT, CMPX, CDP, MG, PRCAL #### [place] [address] Developing Machine Operator: Nhan Mast MD MCH (RBC) [Entitic mass] 27.7 pg Normal 25.2-33.5 [facility] Comment on above: Performed By: #### B PROJECT DEVELOPMENT COORDINATOR, TROPI, LACDS, PT, CMPX, CDP, MG, PRCAL #### [address] [address] Developing Machine Operator: Nhan Mast MD MCHC (RBC) [Mass/Vol] 31.8 g/dL Normal 28.4-34.8 [facility] Comment on above: Performed By: #### B PROJECT DEVELOPMENT COORDINATOR, TROPI, LACDS, PT, CMPX, CDP, MG, PRCAL #### [address] [address] Developing Machine Operator: Nhan Mast MD MCV (RBC) [Entitic vol] 87.2 fL Normal 82.6-102.9 M [facility] Comment on above: Performed By: #### B PROJECT DEVELOPMENT COORDINATOR, TROPI, LACDS, PT, CMPX, CDP, MG, PRCAL #### [address] [address] Developing Machine Operator: Nhan Mast MD NRBC Automated 0.0 per 100 WBC Normal 0.0 [facility] Comment on above: Performed By: #### B PROJECT DEVELOPMENT COORDINATOR, TROPI, LACDS, PT, CMPX, CDP, MG, PRCAL #### [address] [address] Developing Machine Operator: Nhan Mast MD Platelet mean volume (Bld) [Entitic vol] 10.8 fL Normal 8.1-13.5 [facility] Comment on above: Performed By: #### B PROJECT DEVELOPMENT COORDINATOR, TROPI, LACDS, PT, CMPX, CDP, MG, PRCAL #### [address] [address] Developing Machine Operator: Nhan Mast MD Platelets (Bld) [#/Vol] 139 10*3/uL Normal 138-453 [facility] Comment on above: Performed By: #### B PROJECT DEVELOPMENT COORDINATOR, TROPI, LACDS, PT, CMPX, CDP, MG, PRCAL #### [address] [address] Developing Machine Operator: Nhan Mast MD RBC (Bld) [#/Vol] 5.48 10*6/uL Normal 4.21-5.77 [facility] Comment on above: Performed By: #### B PROJECT DEVELOPMENT COORDINATOR, TROPI, LACDS, PT, CMPX, CDP, MG, PRCAL #### [address] [address] Developing Machine Operator: Nhan Mast MD WBC (Bld) [#/Vol] 15.1 10*3/uL High 3.5-11.3 [facility] Comment on above: Performed By: #### B PROJECT DEVELOPMENT COORDINATOR, TROPI, LACDS, PT, CMPX, CDP, MG, PRCAL #### [address] [address] Developing Machine Operator: Nhan Mast MD Auto Diff Performed NOT REPORTED Normal [facility] Comment on above: Performed By: #### B PROJECT DEVELOPMENT COORDINATOR, TROPI, LACDS, PT, CMPX, CDP, MG, PRCAL #### [facility] [place] [address] Developing Machine Operator: Nhan Mast MD Platelet Estimate NOT REPORTED Normal [facility] Comment on above: Performed By: #### B PROJECT DEVELOPMENT COORDINATOR, TROPI, LACDS, PT, CMPX, CDP, MG, PRCAL #### [facility] [place] [address] Developing Machine Operator: Nhan Mast MD RBC morphology finding Nom (Bld) NOT REPORTED Normal [facility] Comment on above: Performed By: #### B PROJECT DEVELOPMENT COORDINATOR, TROPI, LACDS, PT, CMPX, CDP, MG, PRCAL #### [facility] [place] [address] Developing Machine Operator: Nhan Mast MD WBC Morphology NOT REPORTED Normal [facility] Comment on above: Performed By: #### B PROJECT DEVELOPMENT COORDINATOR, TROPI, LACDS, PT, CMPX, CDP, MG, PRCAL #### [facility] [address] [place] [id number] Developing Machine Operator: Nhan Mast MD CT ABDOMEN PELVIS W IV CONTR Oleg 08-27-2020 CT ABDOMEN PELVIS W IV CONTRAST EXAMINATION: CT OF THE ABDOMEN AND PELVIS WITH CONTRAST; CTA OF THE CHEST 08/27/2020 8:29 pm TECHNIQUE: CT of the abdomen and pelvis was performed with the administration of intravenous contrast. Multiplanar reformatted images are provided for review. Dose modulation, iterative reconstruction, and/or weight based adjustment of the mA/kV was utilized to reduce the radiation dose to as low as reasonably achievable.; CTA of the chest was performed after the administration of intravenous contrast. Multiplanar reformatted images are provided for review. MIP images are provided for review. Dose modulation, iterative reconstruction, and/or weight based adjustment of the mA/kV was utilized to reduce the radiation dose to as low as reasonably achievable. COMPARISON: None. HISTORY: ORDERING SYSTEM PROVIDED HISTORY: elevated liver enzymes, SOB TECHNOLOGIST PROVIDED HISTORY: Please scan down through scrotum level elevated liver enzymes, SOB Reason for Exam: hypoxia and elevated liver enzymes, SOB Acuity: Unknown Type of Exam: Unknown FINDINGS: CT ANGIOGRAPHY OF THE CHEST: Pulmonary Arteries: No pulmonary embolism is visualized. Probable pulmonary arterial hypertension, with dilation of the main pulmonary artery (normal caliber less than 3 cm) to 4.0 cm. Mediastinum: The heart is normal in size. The thoracic aorta is mildly tortuous but otherwise unremarkable. No lymphadenopathy seen in the chest. Lungs/pleura: Small streaky pulmonary opacities in the lungs may represent atelectasis or scarring. No pneumonia is seen. The central airway is clear. No pneumothorax or pleural effusion is seen. Soft Tissues/Bones: No acute bone or soft tissue abnormality. CT OF THE ABDOMEN AND PELVIS: ORGANS: Liver: Unremarkable. Gallbladder: Edema is seen around the gallbladder. Multiple calculi are seen in the common bile duct no definite cholelithiasis noted.. Pancreas: Prominently fatty infiltrated and atrophic. No mass, ductal dilatation or edema. Spleen: Unremarkable. Adrenals: Unremarkable. Kidneys: Unremarkable. 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 No bowel wall thickening or obstruction. PERITONEUM/EXTRA PERITONEUM: Minimal atherosclerosis is seen in the aorta. No aneurysm. No free air or free fluid is seen. No lymphadenopathy seen in the abdomen or the pelvis. PELVIS: The urinary bladder is decompressed by Lees catheter. No gross abnormality is seen within it. The prostate gland is normal in size. Postoperative changes from prior left inguinal hernia repair are seen. There is evidence of shallow reherniation of fat into the proximal inguinal canal. No evidence of fat strangulation. BONES/SOFT TISSUES: The visualized bones are intact without fracture or focal lesion. IMPRESSION: CTA OF THE CHEST: 1. No pulmonary embolism. 2. Dilation of the main pulmonary artery may signify pulmonary arterial hypertension. 3. No evidence of pneumonia. CT OF THE ABDOMEN AND PELVIS: 1. Edema surrounding the gallbladder, likely indicating acute cholecystitis. While no cholelithiasis is evident by CT, multiple calculi are seen in the common bile duct (choledocholithiasis). 2. Status post colectomy with right lower quadrant ileostomy. 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 No bowel wall thickening or obstruction. 3. Status post left inguinal hernia repair, with evidence of a recurrent shallow fat-containing hernia. No evidence of fat strangulation. Interpreted by: Miguelina Kenney MD Signed by: Miguelina Kenney MD 08/27/20 Final result Normal [facility] CT CHEST PULMONARY EMBOLISM W CONTRASTon 08-27-2020 CT CHEST PULMONARY EMBOLISM W CONTRAST EXAMINATION: CT OF THE ABDOMEN AND PELVIS WITH CONTRAST; CTA OF THE CHEST 08/27/2020 8:29 pm TECHNIQUE: CT of the abdomen and pelvis was performed with the administration of intravenous contrast. Multiplanar reformatted images are provided for review. Dose modulation, iterative reconstruction, and/or weight based adjustment of the mA/kV was utilized to reduce the radiation dose to as low as reasonably achievable.; CTA of the chest was performed after the administration of intravenous contrast. Multiplanar reformatted images are provided for review. MIP images are provided for review. Dose modulation, iterative reconstruction, and/or weight based adjustment of the mA/kV was utilized to reduce the radiation dose to as low as reasonably achievable. COMPARISON: None. HISTORY: ORDERING SYSTEM PROVIDED HISTORY: elevated liver enzymes, SOB TECHNOLOGIST PROVIDED HISTORY: Please scan down through scrotum level elevated liver enzymes, SOB Reason for Exam: hypoxia and elevated liver enzymes, SOB Acuity: Unknown Type of Exam: Unknown FINDINGS: CT ANGIOGRAPHY OF THE CHEST: Pulmonary Arteries: No pulmonary embolism is visualized. Probable pulmonary arterial hypertension, with dilation of the main pulmonary artery (normal caliber less than 3 cm) to 4.0 cm. Mediastinum: The heart is normal in size. The thoracic aorta is mildly tortuous but otherwise unremarkable. No lymphadenopathy seen in the chest. Lungs/pleura: Small streaky pulmonary opacities in the lungs may represent atelectasis or scarring. No pneumonia is seen. The central airway is clear. No pneumothorax or pleural effusion is seen. Soft Tissues/Bones: No acute bone or soft tissue abnormality. CT OF THE ABDOMEN AND PELVIS: ORGANS: Liver: Unremarkable. Gallbladder: Edema is seen around the gallbladder. Multiple calculi are seen in the common bile duct no definite cholelithiasis noted.. Pancreas: Prominently fatty infiltrated and atrophic. No mass, ductal dilatation or edema. Spleen: Unremarkable. Adrenals: Unremarkable. Kidneys: Unremarkable. 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 No bowel wall thickening or obstruction. PERITONEUM/EXTRA PERITONEUM: Minimal atherosclerosis is seen in the aorta. No aneurysm. No free air or free fluid is seen. No lymphadenopathy seen in the abdomen or the pelvis. PELVIS: The urinary bladder is decompressed by Lees catheter. No gross abnormality is seen within it. The prostate gland is normal in size. Postoperative changes from prior left inguinal hernia repair are seen. There is evidence of shallow reherniation of fat into the proximal inguinal canal. No evidence of fat strangulation. BONES/SOFT TISSUES: The visualized bones are intact without fracture or focal lesion. IMPRESSION: CTA OF THE CHEST: 1. No pulmonary embolism. 2. Dilation of the main pulmonary artery may signify pulmonary arterial hypertension. 3. No evidence of pneumonia. CT OF THE ABDOMEN AND PELVIS: 1. Edema surrounding the gallbladder, likely indicating acute cholecystitis. While no cholelithiasis is evident by CT, multiple calculi are seen in the common bile duct (choledocholithiasis). 2. Status post colectomy with right lower quadrant ileostomy. 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 No bowel wall thickening or obstruction. 3. Status post left inguinal hernia repair, with evidence of a recurrent shallow fat-containing hernia. No evidence of fat strangulation. Interpreted by: Miguelina Kenney MD Signed by: Miguelina Kenney MD 08/27/20 Final result Normal [facility] Comp Metabolic Pr/rfx MGon 0 08-27-2020 Creatinine [Mass/Vol] 0.82 mg/dL Normal 0.70-1.20 [facility] Comment on above: Result Comment: ICTE ANEUDY SPECIMEN Performed By: #### B PROJECT DEVELOPMENT COORDINATOR, TROPI, LACDS, PT, CMPX, CDP, MG, PRCAL #### [facility] [address] [place], [place] [id number] Developing Machine Operator: Nhan Mast MD GFR, Amer >60 Normal >60 [facility] Comment on above: Performed By: #### B PROJECT DEVELOPMENT COORDINATOR, TROPI, LACDS, PT, CMPX, CDP, MG, PRCAL #### [facility] [address] [place], [place] [id number] Developing Machine Operator: Nhan Mast MD GFR,non Amer >60 Normal >60 [facility] Comment on above: Performed By: #### B PROJECT DEVELOPMENT COORDINATOR, TROPI, LACDS, PT, CMPX, CDP, MG, PRCAL #### [address] [phone] Developing Machine Operator: Nhan Mast MD (cont.) Normal [facility] Comment on above: Result Comment: Aver age GFR for 60-69 years old: 85 mL/min/1.73sq m Chronic Kidney Disease: <60 mL/min/1.73sq m Kidney failure: <15 mL/min/1.73sq m eGFR calculated using average adult body mass. Additional eGFR calculator available at: http://www.MILI/multiple_crcl_2011.htm Performed By: #### B PROJECT DEVELOPMENT COORDINATOR, TROPI, LACDS, PT, CMPX, CDP, MG, PRCAL #### [place] [address] Developing Machine Operator: Nhan Mast MD Albumin [Mass/Vol] 3.0 g/dL Low 3.5-5.2 [facility] Comment on above: Performed By: #### B PROJECT DEVELOPMENT COORDINATOR, TROPI, LACDS, PT, CMPX, CDP, MG, PRCAL #### [address] [phone] Developing Machine Operator: Nhan Mast MD Albumin/Glob Ratio 0.8 Low 1.0-2.5 [facility] Comment on above: Performed By: #### B PROJECT DEVELOPMENT COORDINATOR, TROPI, LACDS, PT, CMPX, CDP, MG, PRCAL #### [address] [address] Developing Machine Operator: Nhan Mast MD Alkaline Phos 470 U/L High 40-129 [facility] Comment on above: Performed By: #### B PROJECT DEVELOPMENT COORDINATOR, TROPI, LACDS, PT, CMPX, CDP, MG, PRCAL #### [facility] [address] [place] [phone] Developing Machine Operator: Nhan Mast MD ALT [Catalytic activity/Vol] 67 U/L High 5-41 [facility] Comment on above: Performed By: #### B PROJECT DEVELOPMENT COORDINATOR, TROPI, LACDS, PT, CMPX, CDP, MG, PRCAL #### [address] [address] Developing Machine Operator: Nhan Mast MD Anion gap [Moles/Vol] 14 mmol/L Normal 9-17 [facility] Comment on above: Performed By: #### B PROJECT DEVELOPMENT COORDINATOR, TROPI, LACDS, PT, CMPX, CDP, MG, PRCAL #### [address] [address] Developing Machine Operator: Nhan Mast MD AST [Catalytic activity/Vol] 75 U/L High <40 [facility] Comment on above: Performed By: #### B PROJECT DEVELOPMENT COORDINATOR, TROPI, LACDS, PT, CMPX, CDP, MG, PRCAL #### [address] [address] Developing Machine Operator: Nhan Mast MD Bilirubin [Mass/Vol] 5.92 mg/dL High 0.3-1.2 [facility] Comment on above: Performed By: #### B PROJECT DEVELOPMENT COORDINATOR, TROPI, LACDS, PT, CMPX, CDP, MG, PRCAL #### [address] [address] Developing Machine Operator: Nhan Mast MD Calcium [Mass/Vol] 9.5 mg/dL Normal 8.6-10.4 [facility] Comment on above: Performed By: #### B PROJECT DEVELOPMENT COORDINATOR, TROPI, LACDS, PT, CMPX, CDP, MG, PRCAL #### [address] [address] Developing Machine Operator: Nhan Mast MD Chloride [Moles/Vol] 93 mmol/L Low 98-107 [facility] Comment on above: Performed By: #### B PROJECT DEVELOPMENT COORDINATOR, TROPI, LACDS, PT, CMPX, CDP, MG, PRCAL #### [facility] [address] [place] [phone] Developing Machine Operator: Nhan Mast MD CO2 [Moles/Vol] 25 mmol/L Normal 20-31 [facility] Comment on above: Performed By: #### B PROJECT DEVELOPMENT COORDINATOR, TROPI, LACDS, PT, CMPX, CDP, MG, PRCAL #### [address] [address] Developing Machine Operator: Nhan Mast MD Glucose [Mass/Vol] 245 mg/dL High 70-99 [facility] Comment on above: Performed By: #### B PROJECT DEVELOPMENT COORDINATOR, TROPI, LACDS, PT, CMPX, CDP, MG, PRCAL #### [address] [address] Developing Machine Operator: Nhan Mast MD Potassium [Moles/Vol] 4.9 mmol/L Normal 3.7-5.3 [facility] Comment on above: Performed By: #### B PROJECT DEVELOPMENT COORDINATOR, TROPI, LACDS, PT, CMPX, CDP, MG, PRCAL #### [address] [address] Developing Machine Operator: Nhan Mast MD Protein [Mass/Vol] 6.8 g/dL Normal 6.4-8.3 [facility] Comment on above: Performed By: #### B PROJECT DEVELOPMENT COORDINATOR, TROPI, LACDS, PT, CMPX, CDP, MG, PRCAL #### [address] [address] Developing Machine Operator: Nhan Mast MD Sodium [Moles/Vol] 132 mmol/L Low 135-144 [facility] Comment on above: Performed By: #### B PROJECT DEVELOPMENT COORDINATOR, TROPI, LACDS, PT, CMPX, CDP, MG, PRCAL #### [facility] [address] [place], [place] [phone] Developing Machine Operator: Nhan Mast MD Urea nitrogen [Mass/Vol] 21 mg/dL Normal - [facility] Comment on above: Performed By: #### B PROJECT DEVELOPMENT COORDINATOR, TROPI, LACDS, PT, CMPX, CDP, MG, PRCAL #### [facility] [address] [place], [place] [phone] Developing Machine Operator: Nhan Mast MD BUN/CRE Ratio NOT REPORTED Normal - [facility] Comment on above: Performed By: #### B PROJECT DEVELOPMENT COORDINATOR, TROPI, LACDS, PT, CMPX, CDP, MG, PRCAL #### [facility] [address] [place] [address] Developing Machine Operator: Nhan Mast MD Staging: NOT REPORTED Normal [facility] Comment on above: Performed By: #### B PROJECT DEVELOPMENT COORDINATOR, TROPI, LACDS, PT, CMPX, CDP, MG, PRCAL #### [facility] [address] [place] [address] Developing Machine Operator: Nhan Mast MD Comprehensive Metabolic Pane l w/ Reflex to MGOrdered By: Maty Nieves on 08-27-2020 Albumin [Mass/Vol] 3 g/dL Low 3.5 - 5.2 g/dL [employer] Phone: Albumin/Globulin [Mass ratio] 0.8 {ratio} Low [employer] Phone: ALP (Bld) [Catalytic activity/Vol] 470 U/L High 40 - 129 U/L [employer] Phone: ALT [Catalytic activity/Vol] 67 U/L High 5 - 41 U/L [employer] Phone: Anion gap [Moles/Vol] 14 mmol/L 9 - 17 mmol/L [employer] Phone: AST [Catalytic activity/Vol] 75 U/L High <40 [employer] Phone: Bilirubin [Mass/Vol] 5.92 mg/dL High 0.3 - 1 .2 mg/dL [employer] Phone: Calcium [Mass/Vol] 9.5 mg/dL 8.6 - 10. 4 mg/dL [employer] Phone: Chloride [Moles/Vol] 93 mmol/L Low 98 - 10 7 mmol/L [employer] Phone: CO2 [Moles/Vol] 25 mmol/L 20 - 31 mmol/L [employer] Phone: Creatinine [Mass/Vol] 0.82 mg/dL 0.70 - 1.20 mg/dL [employer] Phone: Free PSA/Total PSA [Mass fraction] 6.8 g/dL 6.4 - 8.3 g/dL [employer] Phone: GFR >60 >60 mL/min [employer] Phone: GFR Non- >60 >60 mL/min [employer] Phone: GFR/1.73 sq M.predicted MDRD (S/P/Bld) [Vol rate/Area] [employer] Phone: GFR/1.73 sq M.predicted MDRD (S/P/Bld) [Vol rate/Area] NOT REPORTED [employer] Phone: Glucose [Mass/Vol] 245 mg/dL High 70 - 99 mg/dL [facility] [employer] Phone: Interpretation and review of laboratory results Abnormal [facility] Phone: Potassium [Moles/Vol] 4.9 mmol/L 3.7 - 5.3 mmol/L [facility] Phone: Sodium [Moles/Vol] 132 mmol/L Low 135 - 144 mmol/L [employer] Phone: Urea nitrogen (BldV) [Mass/Vol] 21 mg/dL 8 - 23 mg/dL [employer] Phone: Urea nitrogen/Creatinine (Bld) [Mass ratio] NOT REPORTED [employer] Phone: [employer] Phone: Creatinine W/GFR Point of Ca reOrdered By: Jesus Poe on 08-27-2020 GFR Non- >60 >60 mL/min [employer] Phone: GFR/1.73 sq M.predicted MDRD (S/P/Bld) [Vol rate/Area] mL/min/{1.73_m2} >60 mL/min [employer] Phone: GFR/1.73 sq M.predicted MDRD (S/P/Bld) [Vol rate/Area] [employer] Phone: POC Creatinine 1.15 mg/dL 0.51 - 1.19 mg/dL [employer] Phone: ELECTROLYTES PLUSOrdered By: Jesus Poe on 08-27-2020 Anion gap [Moles/Vol] 11 mmol/L 7 - 16 mmol/L [employer] Phone: POC Chloride 99 mmol/L 98 - 107 mmol/L [employer] Phone: POC Potassium 4.1 mmol/L 3.5 - 4.5 mmol/L [employer] Phone: POC Sodium 137 mmol/L Low 138 - 146 mmol/L [employer] Phone: POC TCO2 28 mmol/L 22 - 30 mmol/L [employer] Phone: FFP, Transfuseon 08-27-2020 FFP, Transfuse Unit Number [id number] Blood Component Type T1624 Unit Division 00 Status of Unit TRANSFUSED Transfusion Status OK TO TRANSFUSE Unit Number [id number] Blood Component Type T1624 Unit Division 00 Status of Unit TRANSFUSED Transfusion Status OK TO TRANSFUSE Normal [facility] Comment on above: Performed By: #### B PROJECT DEVELOPMENT COORDINATOR, TROPI, LACDS, PT, CMPX, CDP, MG, PRCAL #### [facility] [address] [place] [phone] Developing Machine Operator: Nhan Mast MD Hemoglobin and hematocrit, b loodOrdered By: Jesus Poe on 08-27-2020 POC Hematocrit 47 % 41 - 53 % [facility] [employer] Phone: POC Hemoglobin 16.1 g/dL 13.5 - 17.5 g/dL [facility] [employer] Phone: Lactate, Sepsison 9 Lactic Acid,Sep Wbld 2.5 mmol/L High 0.5-1.9 [facility] Comment on above: Performed By: #### L ACDS #### [address] [address] Developing Machine Operator: Nhan Mast MD Lactic Acid, Sepsis NOT REPORTED Normal 0.5-1.9 [facility] Comment on above: Performed By: #### L ACDS #### [address] [id number] Developing Machine Operator: Nhan Mast MD Lactic Acid,Sep Wbld 3.5 mmol/L High 0.5-1.9 [facility] Comment on above: Performed By: #### B PROJECT DEVELOPMENT COORDINATOR, TROPI, LACDS, PT, CMPX, CDP, MG, PRCAL #### [facility] [address] [place] [phone] Developing Machine Operator: Nhan Mast MD Lactic Acid, Sepsis NOT REPORTED Normal 0.5-1.9 [facility] Comment on above: Performed By: #### B PROJECT DEVELOPMENT COORDINATOR, TROPI, LACDS, PT, CMPX, CDP, MG, PRCAL #### [facility] [address] [place], [place] [phone] Developing Machine Operator: Nhan Mast MD Lactate, SepsisOrdered By: Lauren Aquino on 08-27-2020 Interpretation and review of laboratory results Abnormal [employer] Phone: Lactic Acid, Sepsis NOT REPORTED 0.5 - 1. 9 mmol/L [employer] Phone: Lactic Acid, Sepsis, Whole Blood 2.5 mmol/L High 0.5 - 1.9 mmol/L [employer] Phone: [employer] Phone: Lactate, SepsisOrdered By: Jeanne Nieves on 08-27-2020 Interpretation and review of laboratory results Abnormal [employer] Phone: Lactic Acid, Sepsis NOT REPORTED 0.5 - 1. 9 mmol/L [employer] Phone: Lactic Acid, Sepsis, Whole Blood 3.5 mmol/L High 0.5 - 1.9 mmol/L [employer] Phone: [employer] Phone: Lactic Acid, POCOrdered By: Jesus Poe on 08-27-2020 POC Lactic Acid 1.19 mmol/L 0.56 - 1.39 mmol/L [employer] Phone: Magnesiumon 08-27-2020 Magnesium [Mass/Vol] 1.5 mg/dL Low 1.6-2.6 [facility] Comment on above: Performed By: #### B PROJECT DEVELOPMENT COORDINATOR, TROPI, LACDS, PT, CMPX, CDP, MG, PRCAL #### [facility] [address] [place], [place] [phone] Developing Machine Operator: Nhan Mast MD MagnesiumOrdered By: Maty Nieves on 08-27-2020 Magnesium [Mass/Vol] 1.5 mg/dL Low 1.6 - 2 .6 mg/dL [employer] Phone: Microscopic UrinalysisOrdere d By: Laurojhoan Sheelaflorencia on 08-27-2020 Amorphous, UA NOT REPORTED None [employer] Phone: Bacteria, UA MANY Abnormal None [employer] Phone: Casts UA 5 TO 10 HYALINE Reference range defined for non-centrifuged specimen. [employer] Work Phone: Crystals, UA NOT REPORTED None /HPF [employer] Phone: Epithelial Cells UA None [employer] Phone: Interpretation and review of laboratory results Abnormal [employer] Phone: Mucus, UA NOT REPORTED None [employer] Phone: [phone] Other Observations UA NOT REPORTED NOT REQ. [facility] Work Phone: RBC, UA 2 TO 5 [employer] Phone: Renal Epithelial, UA NOT REPORTED 0 /HPF [employer] Work Phone: Trichomonas, UA NOT REPORTED None [employer] Phone: WBC, UA 10 TO 20 [employer] Phone: Yeast, UA NOT REPORTED None [employer] Phone: [employer] Work Phone: No Panel InformationOrdered By: Jesus Poe on 08-27-2020 [employer] Phone: [phone] [employer] [employer] Work Phone: [employer] Work Phone: [employer] Phone: Interpretation and review of laboratory results Abnormal [employer] Phone: [employer] Phone: No Panel InformationOrdered By: Maty Nieves on 08-27-2020 Interpretation and review of laboratory results Abnormal [employer] Phone: [employer] Phone: Interpretation and review of laboratory results Abnormal [employer] Phone: [employer] Phone: POC Glucose FingerstickOrder ed By: Jesus Poe on 08-27-2020 Glucose [Mass/Vol] 221 mg/dL High 75 - 110 mg/dL [employer] Phone: Interpretation and review of laboratory results Abnormal [employer] Phone: [employer] Phone: Glucose [Mass/Vol] 226 mg/dL High 75 - 110 mg/dL [employer] Phone: Interpretation and review of laboratory results Abnormal [employer] Phone: [employer] Phone: Glucose [Mass/Vol] 225 mg/dL High 75 - 110 mg/dL [employer] Phone: Interpretation and review of laboratory results Abnormal [employer] Phone: [employer] Phone: POCT GlucoseOrdered By: Josi Poe on 08-27-2020 Glucose [Mass/Vol] 263 mg/dL High 74 - 100 mg/dL [employer] Phone: POCT urea (BUN)Ordered By: Malik Poe on 08-27-2020 POC BUN 20 mg/dL 8 - 26 mg/dL [employer] Phone: PTon 08-27-2020 INR Coag (PPP) [Relative time] {INR} Critically high [facility] Comment on above: Result Comment: Therapeutic Range: Moderate Anticoagulant Intensity: INR = 2.0-3.0 High Anticoagulant Intensity: INR = 2.5-3.5 Performed By: #### B PROJECT DEVELOPMENT COORDINATOR, TROPI, LACDS, PT, CMPX, CDP, MG, PRCAL #### [facility] [place], [place] [phone] Developing Machine Operator: Nhan Mast MD PT Coag (PPP) [Time] s High 9.1-12.3 [facility] Comment on above: Result Comment: TEST CONFIRMED Performed By: #### B PROJECT DEVELOPMENT COORDINATOR, TROPI, LACDS, PT, CMPX, CDP, MG, PRCAL #### [facility] [address] [place] [phone] Developing Machine Operator: Nhan Mast MD Procalcitoninon 08-27-2020 Procalcitonin 7.50 ng/mL High <0.09 [facility] Comment on above: Result Comment: Suspected Sepsis: <0.50 ng/mL Low likelihood of sepsis. 0.50-2.00 ng/mL Increased likelihood of sepsis. Antibiotics encouraged. >2.00 ng/mL High risk of sepsis/shock. Antibiotics strongly encouraged. Suspected Lower Resp Tract Infections: <0.24 ng/mL Low likelihood of bacterial infection. >0.24 ng/mL Increased likelihood of bacterial infection. Antibiotics encouraged. With successful antibiotic therapy, PCT levels should decrease rapidly. (Half-life of 24 to 36 hours.) Procalcitonin values from samples collected within the first 6 hours of systemic infection may still be low. Retesting may be indicated. Values from day 1 and day 4 can be entered into the Change in Procalcitonin Calculator (www.saxbqu-icb-qbmjpsofuy.com) to determine the patient's Mortality Risk Prognosis In healthy neonates, plasma Procalcitonin (PCT) concentrations increase gradually after , reaching peak values at about 24 hours of age then decrease to normal values below 0.5 ng/mL by 48-72 hours of age. Performed By: #### B PROJECT DEVELOPMENT COORDINATOR, TROPI, LACDS, PT, CMPX, CDP, MG, PRCAL #### [facility] [place] [address] Developing Machine Operator: Nhan Mast MD ProcalcitoninOrdered By: Katheryn Nieves on 08-27-2020 Procalcitonin 7.5 ng/mL High <0.09 [employer] Phone: Protime-INROrdered By: Shahnaz Nieves on 08-27-2020 INR Coag (Bld) [Relative time] {INR} Critically high [facility] Phone: Interpretation and review of laboratory results Abnormal [facility] Phone: PT Coag (PPP) [Time] s High [employer] Phone: [employer] Phone: TYPE AND SCREENOrdered By: Jeanne Nieves on 08-27-2020 ABO/Rh Positive [employer] Phone: Arm Band Number [id number] [employer] Phone: Expiration Date 08/30/2020,2359 [employer] Phone: [employer] Phone: Troponinon 08-27-2020 Troponin Interp. NOT REPORTED Normal [facility] Comment on above: Performed By: #### B PROJECT DEVELOPMENT COORDINATOR, TROPI, LACDS, PT, CMPX, CDP, MG, PRCAL #### [facility] [address] [place] [phone] Developing Machine Operator: Nhan Mast MD Troponin T NOT REPORTED Normal <0.03 [facility] Comment on above: Performed By: #### B PROJECT DEVELOPMENT COORDINATOR, TROPI, LACDS, PT, CMPX, CDP, MG, PRCAL #### [facility] [address] [place] [phone] Developing Machine Operator: Nhan Mast MD Troponin, High Sens 29 ng/L High 0-22 [facility] Comment on above: Result Comment: High Sensitivity Troponin values cannot be compared with other Troponin methodologies. Patients with high levels of Biotin oral intake (i.e >5mg/day) may have falsely decreased Troponin levels. Samples collected within 8 hours of biotin intake may require additional information for diagnosis. Performed By: #### B PROJECT DEVELOPMENT COORDINATOR, TROPI, LACDS, PT, CMPX, CDP, MG, PRCAL #### [facility] [place], [place] [phone] Developing Machine Operator: Nhan Mast MD Troponin Interp. NOT REPORTED Normal [facility] Comment on above: Performed By: #### B PROJECT DEVELOPMENT COORDINATOR, TROPI, LACDS, PT, CMPX, CDP, MG, PRCAL #### [facility] [place], [place] [phone] Developing Machine Operator: Nhan Mast MD Troponin T NOT REPORTED Normal <0.03 [facility] Comment on above: Performed By: #### B PROJECT DEVELOPMENT COORDINATOR, TROPI, LACDS, PT, CMPX, CDP, MG, PRCAL #### [facility] [address] [place], [place] [phone] Developing Machine Operator: Nhan Mast MD TroponinOrdered By: Maty milian on 08-27-2020 Interpretation and review of laboratory results Abnormal [employer] Phone: Troponin Interp NOT REPORTED [employer] Phone: Troponin T NOT REPORTED <0.03 ng/mL [employer] Phone: Troponin, High Sensitivity 26 ng/L High 0 - 22 ng/L [employer] Phone: [phone] [employer] Phone: Troponin Interp NOT REPORTED [employer] Phone: Troponin T NOT REPORTED <0.03 ng/mL [employer] Phone: Troponin, High Sensitivity 29 ng/L High 0 - 22 ng/L [employer] Phone: Type + Screenon 08-27-2020 Type + Screen Sample Expiration 08/30/2020,2359 Arm Band Number [id number] ABO/Rh(D) A POSITIVE Antibody Screen NEGATIVE Normal [facility] Comment on above: Performed By: #### B PROJECT DEVELOPMENT COORDINATOR, TROPI, LACDS, PT, CMPX, CDP, MG, PRCAL #### [facility] [address] [place] [phone] Developing Machine Operator: Nhan Mast MD UA w/Reflex Cultureon 2020 Bilirubin, SemiQt,Ur LARGE Abnormal NEG [facility] Comment on above: Performed By: #### B PROJECT DEVELOPMENT COORDINATOR, TROPI, LACDS, PT, CMPX, CDP, MG, PRCAL #### [facility] [address] [place] [phone] Developing Machine Operator: Nhan Mast MD Blood, Urine MODERATE Abnormal NEG [facility] Comment on above: Performed By: #### B PROJECT DEVELOPMENT COORDINATOR, TROPI, LACDS, PT, CMPX, CDP, MG, PRCAL #### [facility] [address] [place] [phone] Developing Machine Operator: Nhan Mast MD Clarity (U) CLOUDY Abnormal CLEAR [facility] Comment on above: Performed By: #### B PROJECT DEVELOPMENT COORDINATOR, TROPI, LACDS, PT, CMPX, CDP, MG, PRCAL #### [facility] [address] [place] [address] [phone] Developing Machine Operator: Nhan Mast MD Color (U) DARK YELLOW Abnormal YEL [facility] Comment on above: Performed By: #### B PROJECT DEVELOPMENT COORDINATOR, TROPI, LACDS, PT, CMPX, CDP, MG, PRCAL #### [facility] [address] [place] [phone] Developing Machine Operator: Nhan Mast MD Glucose Ql (U) Negative Normal NEG [facility] Comment on above: Performed By: #### B PROJECT DEVELOPMENT COORDINATOR, TROPI, LACDS, PT, CMPX, CDP, MG, PRCAL #### [address] [address] Developing Machine Operator: Nhan Mast MD Ketones Ql (U) MODERATE Abnormal NEG [facility] Comment on above: Performed By: #### B PROJECT DEVELOPMENT COORDINATOR, TROPI, LACDS, PT, CMPX, CDP, MG, PRCAL #### [address] [address] Developing Machine Operator: Nhan Mast MD Leukocyte esterase Test strip Ql (U) MODERATE Abnormal NEG [facility] Comment on above: Performed By: #### B PROJECT DEVELOPMENT COORDINATOR, TROPI, LACDS, PT, CMPX, CDP, MG, PRCAL #### [address] [address] Developing Machine Operator: Nhan Mast MD Nitrite,Ur Positive Abnormal NEG [facility] Comment on above: Performed By: #### B PROJECT DEVELOPMENT COORDINATOR, TROPI, LACDS, PT, CMPX, CDP, MG, PRCAL #### [address] [address] Developing Machine Operator: Nhan Mast MD PH,Ur 5.0 Normal 5.0-8.0 [facility] Comment on above: Performed By: #### B PROJECT DEVELOPMENT COORDINATOR, TROPI, LACDS, PT, CMPX, CDP, MG, PRCAL #### [address] [address] Developing Machine Operator: Nhan Mast MD Protein Ql (U) 1+ Abnormal NEG [facility] Comment on above: Performed By: #### B PROJECT DEVELOPMENT COORDINATOR, TROPI, LACDS, PT, CMPX, CDP, MG, PRCAL #### [address] [address] Developing Machine Operator: Nhan Mast MD Spec. [place],Ur 1.023 Normal 1.005-1.030 [facility] Comment on above: Performed By: #### B PROJECT DEVELOPMENT COORDINATOR, TROPI, LACDS, PT, CMPX, CDP, MG, PRCAL #### [facility] [address] [place] [address] Developing Machine Operator: Nhan Mast MD Urobilinogen,Ur Normal Normal NORM [facility] Comment on above: Performed By: #### B PROJECT DEVELOPMENT COORDINATOR, TROPI, LACDS, PT, CMPX, CDP, MG, PRCAL #### [facility] [address] [place], [place] [id number] Developing Machine Operator: Nhan Mast MD Comment NOT REPORTED Normal [facility] Comment on above: Performed By: #### B PROJECT DEVELOPMENT COORDINATOR, TROPI, LACDS, PT, CMPX, CDP, MG, PRCAL #### [facility] [address] [place], [place] [phone] Developing Machine Operator: Nhan Mast MD Urinalysis Reflex to Culture Ordered By: Josesito Aquino on 08-27-2020 Bilirubin Urine LARGE Abnormal NEGATIVE [facility] Phone: Color, UA DARK YELLOW Abnormal YELLOW [facility] Phone: Glucose, Ur Negative NEGATIVE [facility] Phone: Interpretation and review of laboratory results Abnormal [facility] Phone: Ketones Ql (U) MODERATE Abnormal NEGATIVE [facility] Phone: Leukocyte esterase Test strip Ql (U) MODERATE Abnormal NEGATIVE [facility] Phone: Nitrite, Urine Positive Abnormal NEGATIVE [employer] Phone: pH, UA 5.0 [facility] Work Phone: Protein, UA 1+ Abnormal NEGATIVE [facility] Phone: Specific [place], UA 1.023 [employer] Phone: Turbidity UA CLOUDY Abnormal CLEAR [facility] Phone: Urinalysis Comments NOT REPORTED [facility] Work Phone: Urine Hgb MODERATE Abnormal NEGATIVE [facility] Phone: Urobilinogen, Urine Normal Normal [facility] Phone: [facility] Phone: Urinalysis,Microon 1 ----- Normal [facility] Comment on above: Performed By: #### B PROJECT DEVELOPMENT COORDINATOR, TROPI, LACDS, PT, CMPX, CDP, MG, PRCAL #### [facility] [address] [place] [id number] Developing Machine Operator: Nhan Mast MD Bacteria MANY Abnormal NONE [facility] Comment on above: Performed By: #### B PROJECT DEVELOPMENT COORDINATOR, TROPI, LACDS, PT, CMPX, CDP, MG, PRCAL #### [facility] [address] [place] [address] [phone] Developing Machine Operator: Nhan Mast MD Casts 5 TO 10 HYALINE Normal 0-8 [facility] Comment on above: Result Comment: Refe rence range defined for non-centrifuged specimen. Performed By: #### B PROJECT DEVELOPMENT COORDINATOR, TROPI, LACDS, PT, CMPX, CDP, MG, PRCAL #### [facility] [address] [place] [id number] Developing Machine Operator: Nhan Mast MD Epithelial cells LM Ql (Urine sed) None Normal 0-5 [facility] Comment on above: Performed By: #### B PROJECT DEVELOPMENT COORDINATOR, TROPI, LACDS, PT, CMPX, CDP, MG, PRCAL #### [facility] [address] [place] [address] [phone] Developing Machine Operator: Nhan Mast MD Urine RBC's 2 TO 5 Normal 0-4 [facility] Comment on above: Result Comment: Refe rence range defined for non-centrifuged specimen. Performed By: #### B PROJECT DEVELOPMENT COORDINATOR, TROPI, LACDS, PT, CMPX, CDP, MG, PRCAL #### [address] [address] Developing Machine Operator: Nhan Mast MD Urine WBC's 10 TO 20 Normal 0-5 [facility] Comment on above: Performed By: #### B PROJECT DEVELOPMENT COORDINATOR, TROPI, LACDS, PT, CMPX, CDP, MG, PRCAL #### [address] [address] Developing Machine Operator: Nhan Mast MD Amorphous sediment LM Ql (Urine sed) NOT REPORTED Normal [facility] Comment on above: Performed By: #### B PROJECT DEVELOPMENT COORDINATOR, TROPI, LACDS, PT, CMPX, CDP, MG, PRCAL #### [address] [address] Developing Machine Operator: Nhan Mast MD Crystals LM Nom (Urine sed) NOT REPORTED Normal [facility] Comment on above: Performed By: #### B PROJECT DEVELOPMENT COORDINATOR, TROPI, LACDS, PT, CMPX, CDP, MG, PRCAL #### [address] [address] Developing Machine Operator: Nhan Mast MD Epithelial, Renal NOT REPORTED Normal 0 [facility] Comment on above: Performed By: #### B PROJECT DEVELOPMENT COORDINATOR, TROPI, LACDS, PT, CMPX, CDP, MG, PRCAL #### [address] [address] Developing Machine Operator: Nhan Mast MD Mucus Strands NOT REPORTED Normal [facility] Comment on above: Performed By: #### B PROJECT DEVELOPMENT COORDINATOR, TROPI, LACDS, PT, CMPX, CDP, MG, PRCAL #### [address] [address] Developing Machine Operator: Nhan Mast MD Other Observations NOT REPORTED Normal [facility] Comment on above: Performed By: #### B PROJECT DEVELOPMENT COORDINATOR, TROPI, LACDS, PT, CMPX, CDP, MG, PRCAL #### [facility] [address] [place] [address] [phone] Developing Machine Operator: Nhan Mast MD Trichomonas NOT REPORTED Normal NONE [facility] Comment on above: Performed By: #### B PROJECT DEVELOPMENT COORDINATOR, TROPI, LACDS, PT, CMPX, CDP, MG, PRCAL #### [facility] [address] [place] [address] [phone] Developing Machine Operator: Nhan Mast MD Yeast NOT REPORTED Normal NONE [facility] Comment on above: Performed By: #### B PROJECT DEVELOPMENT COORDINATOR, TROPI, LACDS, PT, CMPX, CDP, MG, PRCAL #### [facility] [address] [place] [address] [phone] Developing Machine Operator: Nhan Mast MD Vital Signs Date Time Vital Sign Value Performing Clinician Facility 03-19-2024 17:43-0500 SaO2% (BldA) [Mass fraction] 100 % [facility] Comment on above: Performed By: #### CBCA, 2143-6, 03779-4 , 3084-1, 47133-3, 2692-2, CMP, THYR #### [facility] ([id number]) [address], [address] [place] [address] 11-04-2020 11:45-0400 Body temperature 97.2 [degF] Alexis Ramon MD Work Phone: [facility] Work Phone: 11-04-2020 11:45-0400 Diastolic blood pressure 74 mm[Hg] Alexis Ramon MD Work Phone: [facility] Work Phone: 11-04-2020 11:45-0400 Heart rate 104 /min Alexis Ramon MD Work Phone: [facility] Work Phone: 11-04-2020 11:45-0400 Respiratory rate 18 /min Alexis Ramon MD Work Phone: [facility] Work Phone: 11-04-2020 11:45-0400 SaO2% (BldA) [Mass fraction] 91 % Alexis Ramon MD Work Phone: [facility] Work Phone: 11-04-2020 11:45-0400 Systolic blood pressure 167 mm[Hg] Alexis Ramon MD Work Phone: [facility] Work Phone: 11-04-2020 08:13-0400 Body height 190.5 cm Alexis Ramon MD Work Phone: [facility] Work Phone: 11-04-2020 08:13-0400 Body mass index (BMI) [Ratio] 43.75 kg/m2 Alexis Ramon MD Work Phone: [facility] Work Phone: 11-04-2020 08:13-0400 Body weight 158.76 kg Alexis Ramon MD Work Phone: [facility] Work Phone: 09-06-2020 08:09-0400 Body temperature 97.59 [degF] Josesito Aquino MD Work Phone: [facility] Work Phone: 09-06-2020 08:09-0400 Diastolic blood pressure 65 mm[Hg] Josesito Aquino MD Work Phone: [facility] Work Phone: 09-06-2020 08:09-0400 Heart rate 57 /min Josesito Aquino MD Work Phone: [facility] Work Phone: 09-06-2020 08:09-0400 Respiratory rate 16 /min Josesito Aquino MD Work Phone: [facility] Work Phone: 09-06-2020 08:09-0400 SaO2% (BldA) [Mass fraction] 94 % Josesito Aquino MD Work Phone: [facility] Work Phone: 09-06-2020 08:09-0400 Systolic blood pressure 128 mm[Hg] Josesito Aquino MD Work Phone: [facility] Work Phone: 09-06-2020 05:01-0400 Body mass index (BMI) [Ratio] 53 kg/m2 Josesito Aquino MD Work Phone: [facility] Work Phone: 09-06-2020 05:01-0400 Body weight 192.32 kg Josesito Aquino MD Work Phone: [facility] Work Phone: 09-03-2020 14:14-0400 Body height 190.5 cm Josesito Aquino MD Work Phone: [facility] Work Phone: Encounters Encounter Date Encounter Type Care Provider Facility Start: 03-21-2024 End: 03-26-2024 Evaluation and management of inpatient [facility] Start: 03-19-2024 End: 03-26-2024 Evaluation and management of inpatient [facility] Start: 05-03-2023 End: 05-03-2023 ambulatory Dimitry Dick Facility:[facility] Start: 12-25-2020 End: 12-26-[address] JESUS CHOPRA Facility: Start: 11-04-2020 End: 11-04-2020 ambulatory [facility] Start: 11-04-2020 End: 11-04-2020 Subsequent hospital visit by physician Alexis Ramon MD Work Phone: [facility] Start: 08-27-2020 End: 09-06-2020 Evaluation and management of inpatient [facility] Start: 08-27-2020 End: 09-06-2020 Evaluation and management of inpatient Josesito Aquino MD Work Phone: [facility] Stepdown Start: 08-24-2020 End: 08-24-[address] DOCTOR ALVARADO Facility:[facility] Procedures Date Procedure Procedure Detail Performing Clinician Start: 12-25-[address] DOCTOR ALVARADO Comment on above: Performed By: #### P [facility] #### [facility] [address] [place] [address] Dr. Ken Benton Start: 11-04-2020 Glucose blood reagent strip Alexis Ramon MD Work Phone: Start: 11-04-2020 Fluoroscopy during operation Alexis Ramon MD Work Phone: Start: 11-04-2020 End: 11-04-2020 Prothrombin time Mabel Machado MD Work Phone: Start: 09-06-2020 Glucose blood reagent strip Main Ascencio MD Work Phone: Start: 09-06-2020 Glucose blood reagent strip Main Ascencio MD Work Phone: Start: 09-06-2020 Procalcitonin (pct) Mihaela rles S Lui DO Work Phone: Start: 09-06-2020 Glucose blood reagent strip Main Ascencio MD Work Phone: Start: 09-06-2020 Glucose blood reagent strip Main Ascencio MD Work Phone: Start: 09-06-2020 Assay of magnesium Josi les S Lui DO Work Phone: Start: 09-06-2020 Hepatic function panel Harvey Dotson MD Work Phone: Start: 09-05-2020 Glucose blood reagent strip Harvey Dotson MD Work Phone: Start: 09-05-2020 Glucose blood reagent strip Harvey Dotson MD Work Phone: Start: 09-05-2020 Glucose blood reagent strip Harvey Dotson MD Work Phone: Start: 09-05-2020 End: 09-05-2020 Blood count complete automated Harvey Dotson MD Work Phone: Start: 09-05-2020 Assay of magnesium Josi Poe DO Work Phone: Start: 09-05-2020 SPECIMEN REJECTION Josi Poe DO Work Phone: Start: 09-04-2020 End: 09-04-2020 Prothrombin time Harvey Dotson MD Work Phone: Start: 09-04-2020 Glucose blood reagent strip Harvey Dotson MD Work Phone: Start: 09-04-2020 Glucose blood reagent strip Harvey Dotson MD Work Phone: Start: 09-04-2020 End: 09-04-2020 Basic metabolic panel calcium total Jesus Poe DO Work Phone: Start: 09-04-2020 Hepatic function panel Jesus Poe DO Work Phone: Start: 09-03-2020 Glucose blood reagent strip Harvey Dotson MD Work Phone: Start: 09-03-2020 Glucose blood reagent strip Harvey Dotson MD Work Phone: Start: 09-03-2020 Glucose blood reagent strip Harvey Dotson MD Work Phone: Start: 09-03-2020 End: 09-03-2020 Assay of magnesium Jesus Poe DO Work Phone: Start: 09-03-2020 Hepatic function panel Jesus Poe DO Work Phone: Start: 09-02-2020 Glucose blood reagent strip aHrvey Dotson MD Work Phone: Start: 09-02-2020 Glucose blood reagent strip Harvey Dotson MD Work Phone: Start: 09-02-2020 Procalcitonin (pct) Mihaela Poe DO Work Phone: Start: 09-02-2020 Glucose blood reagent strip Harvey Dotson MD Work Phone: Start: 09-02-2020 Glucose blood reagent strip Harvey Dotson MD Work Phone: Start: 09-02-2020 Assay of magnesium Josi eligio S Lui DO Work Phone: Start: 09-02-2020 Hepatic function panel Jesus Poe DO Work Phone: Start: 09-02-2020 LACTATE, SEPSIS Estephanie Keyonna Calfee ABRASIVE GRINDER - PET CAREGIVER Work Phone: Start: 09-02-2020 LACTATE, SEPSIS Estephanie Keyonna Calfee ABRASIVE GRINDER - PET CAREGIVER Work Phone: Start: 09-01-2020 Blood count complete automated Estephanie Keyonna Calfee ABRASIVE GRINDER - PET CAREGIVER Work Phone: Start: 09-01-2020 LACTATE, SEPSIS Estephanie Keyonna Calfee ABRASIVE GRINDER - PET CAREGIVER Work Phone: Start: 09-01-2020 Glucose blood reagent strip Harvey Dotson MD Work Phone: Start: 09-01-2020 Glucose blood reagent strip Harvey Dotson MD Work Phone: Start: 09-01-2020 Glucose blood reagent strip Harvey Dotson MD Work Phone: Start: 09-01-2020 End: 09-01-2020 TRANSFUSE FRESH FROZEN PLASMA Alexis Ramon MD Work Phone: Start: 09-01-2020 Glucose blood reagent strip Harvey Dotson MD Work Phone: Start: 09-01-2020 Assay of magnesium Josi eligio Poe DO Work Phone: Start: 09-01-2020 Hepatic function panel Jesus Poe DO Work Phone: Start: 08-31-2020 Glucose blood reagent strip Harvey Dotson MD Work Phone: Start: 08-31-2020 Glucose blood reagent strip Harvey Dotson MD Work Phone: Start: 08-31-2020 Radiologic exam ches t single view Harvey Dotson MD Work Phone: Start: 08-31-2020 Glucose blood reagent strip Harvey Dotosn MD Work Phone: Start: 08-31-2020 Glucose blood reagent strip Harvey Dotson MD Work Phone: Start: 08-31-2020 Comprehensive metabo lic panel Harvey Dotson MD Work Phone: Start: 08-31-2020 Hepatic function panel Jesus Poe DO Work Phone: Start: 08-30-2020 Glucose blood reagent strip Magdaleno A Katie DO Work Phone: Start: 08-30-2020 Glucose blood reagent strip Magdaleno A Katie DO Work Phone: Start: 08-30-2020 Glucose blood reagent strip Magdaleno A Katie DO Work Phone: Start: 08-30-2020 Radiologic exam ches t single view Jewel A Jazzy ABRASIVE GRINDER - PET CAREGIVER Work Phone: Start: 08-30-2020 Echo tthrc r-t 2d w/wom-mode compl spec&colr d Alexis Ramon MD Work Phone: Start: 08-30-2020 Hepatic function panel Jewel A Jazzy ABRASIVE GRINDER - PET CAREGIVER Work Phone: Start: 08-30-2020 Glucose blood reagent strip Magdaleno A Katie DO Work Phone: Start: 08-30-2020 Blood count complete automated Magdaleno A Katie DO Work Phone: Start: 08-30-2020 Assay of magnesium Susi Ramon MD Work Phone: Start: 08-29-2020 Glucose blood reagent strip Magdaleno Wilson DO Work Phone: Start: 08-29-2020 Procalcitonin (pct) Fei Ramon MD Work Phone: Start: 08-29-2020 Glucose blood reagent strip Magdaleno Wilson DO Work Phone: Start: 08-29-2020 Us abdominal real ti me w/image limited Alexis Ramon MD Work Phone: Start: 08-29-2020 Glucose blood reagent strip Magdaleno Wilson DO Work Phone: Start: 08-29-2020 EXTUBATION Magdaleno flowers DO Work Phone: Start: 08-29-2020 Creatinine other source Humphrey Dejesus MD Work Phone: Start: 08-29-2020 Assay of magnesium Susi Ramon MD Work Phone: Start: 08-29-2020 ARTERIAL BLOOD GAS, POC Magdaleno Wilson DO Work Phone: Start: 08-29-2020 Gluc bld gluc mntr d ev cleared fda spec home use Magdaleno Wilson DO Work Phone: Start: 08-29-2020 LACTIC ACID,POINT OF CARE Magdaleno Wilson DO Work Phone: Start: 08-28-2020 ARTERIAL BLOOD GAS, POC Magdaleno Wilson DO Work Phone: Start: 08-28-2020 End: 08-28-2020 Gluc bld gluc mntr dev cleared fda spec home use Magdaleno Wilson DO Work Phone: Start: 08-28-2020 LACTIC ACID,POINT OF CARE Magdaleno Hailey Tadeoa DO Work Phone: Start: 08-28-2020 Radiologic exam abdo men 1 view Cyrus Kenney MD Work Phone: Start: 08-28-2020 Radiologic exam ches t single view Cyrus Kenney MD Work Phone: Start: 08-28-2020 Fluoroscopy during operation Alexis Ramon MD Work Phone: Start: 08-28-2020 TRANSFUSE FRESH FROZ EN PLASMA Alexis Ramon MD Work Phone: Start: 08-28-2020 End: 08-28-2020 ERCP DILATION BALLOON Alexis Ramon MD Work Phone: Start: 08-28-2020 End: 08-28-2020 ERCP SPHINCTER/PAPILLOTOMY Alexis baum MD Work Phone: Start: 08-28-2020 End: 08-28-2020 ERCP STENT INSERTION Alexis Ramon MD Work Phone: Start: 08-28-2020 Radiologic exam ches t single view Magdaleno Wilson DO Work Phone: Start: 08-28-2020 End: 08-28-2020 Prothrombin time Inessa Maldonado MD Work Phone: Start: 08-28-2020 Prothrombin time Jewel A Jazzy ABRASIVE GRINDER - PET CAREGIVER Work Phone: Start: 08-28-2020 COVID-19, RAPID Jewel A Jazzy ABRASIVE GRINDER - PET CAREGIVER Work Phone: Start: 08-28-2020 Iadna s aureus methi cillin resist amp probe tq Balaji Ross MD Work Phone: Start: 08-28-2020 Basic metabolic pane l calcium total Inessa Maldonado MD Work Phone: Start: 08-28-2020 Glucose blood reagent strip Main Ascencio MD Work Phone: Start: 08-28-2020 TRANSFUSE FRESH FROZ EN PLASMA Main Ascencio MD Work Phone: Start: 08-28-2020 Ct head/brain w/o co ntrast material Main Ascencio MD Work Phone: Start: 08-28-2020 End: 08-28-2020 PREPARE FRESH FROZEN PLASMA Main Foster Work Phone: Start: 08-28-2020 End: 08-28-2020 Assay of magnesium Alexis Ramon MD Work Phone: Start: 08-28-2020 Assay of troponin quantitative Maty R Nieves ABRASIVE GRINDER - PROJECT DEVELOPMENT COORDINATOR Work Phone: Start: 08-27-2020 Assay of troponin quantitative Maty R Nieves ABRASIVE GRINDER - PROJECT DEVELOPMENT COORDINATOR Work Phone: Start: 08-27-2020 Ct abdomen & pelvis w/contrast material Ila Talley PA-C Work Phone: Start: 08-27-2020 Ct thorax w/contrast material Jesus Poe DO Work Phone: Start: 08-27-2020 Glucose blood reagent strip Jesus Poe DO Work Phone: Start: 08-27-2020 Antibody screen Josesito Aquino MD Work Phone: Start: 08-27-2020 Urnls dip stick/tabl et rgnt auto w/o microscopy Josesito Aquino MD Work Phone: Start: 08-27-2020 End: 08-27-2020 Culture bacterial quanttative colony count urine Jesus Poe DO Work Phone: Start: 08-27-2020 CULTURE, BLOOD 1 Augiebrooklyn Poe DO Work Phone: Start: 08-27-2020 BLOOD BANK SPECIMEN [facility] Work Phone: Start: 08-27-2020 Blood typing serologic abo Maty R Nieves ABRASIVE GRINDER - PROJECT DEVELOPMENT COORDINATOR Work Phone: Start: 08-27-2020 LACTATE, SEPSIS Josesito Aquino MD Work Phone: Start: 08-27-2020 ARTERIAL BLOOD GAS, POC Jesus Poe DO Work Phone: Start: 08-27-2020 CALCIUM, IONIC (POC) Ch yaniqueeligio Poe DO Work Phone: Start: 08-27-2020 CREATININE W/GFR POI NT OF CARE Jesus Poe DO Work Phone: Start: 08-27-2020 ELECTROLYTES PLUS Mikaela Poe DO Work Phone: Start: 08-27-2020 End: 08-27-2020 Gluc bld gluc mntr dev cleared fda spec home use Jesus Poe DO Work Phone: Start: 08-27-2020 LACTIC ACID,POINT OF CARE Jesus Poe DO Work Phone: Start: 08-27-2020 PREPARE FRESH FROZEN PLASMA Maty R Nieves ABRASIVE GRINDER - PROJECT DEVELOPMENT COORDINATOR Work Phone: Start: 08-27-2020 Culture bacterial bl ood aerobic w/id isolates Alexis Ramon MD Work Phone: Start: 08-27-2020 Ecg routine ecg w/le ast 12 lds i&r only Maty R Nieves ABRASIVE GRINDER - PROJECT DEVELOPMENT COORDINATOR Work Phone: Start: 08-27-2020 End: 08-27-2020 Assay of magnesium Maty R Nieves ABRASIVE GRINDER - PROJECT DEVELOPMENT COORDINATOR Work Phone: Start: 08-27-2020 End: 08-27-2020 CULTURE, BLOOD 1 Josesito Aquino MD Work Phone: Start: 08-27-2020 LACTATE, SEPSIS Maty R Nieves ABRASIVE GRINDER - PROJECT DEVELOPMENT COORDINATOR Work Phone: Plan of Treatment Date Care Activity Detail Author Start: 09-04-2021 Creatinine measurement [facility] Work Phone: Start: 09-04-2021 Potassium monitoring Potassium monit oring [facility] Work Phone: Start: 09-04-2021 [employer] Work Phone: Start: 11-10-2020 Influenza vaccination Flu vaccine (# 1) [facility] Work Phone: Start: 11-10-2020 [employer] Work Phone: Start: 09-11-2020 End: 09-04-2021 Sleep Study with PAP Titration [facility] Phone: Start: 08-27-2020 Annual Wellness Visi t (AWV) Annual Wellness Visit (AWV) [facility] Phone: Start: 08-27-2020 [employer] Work Phone: Start: 2016 Pneumococcal 65+ yea rs Vaccine (1 of 1 - PPSV23) Pneumococcal 65+ years Vaccine (1 of 1 - PPSV23) [facility] Phone: Start: 2016 [employer] Phone: Start: 2001 Screening for malign ant neoplasm of colon [facility] Phone: Start: 2001 Shingles Vaccine (1 of 2) Shingles V accine (1 of 2) [facility] Phone: Start: 2001 [employer] Work Phone: Start: 1996 Screening for malign ant neoplasm of colon Colon cancer screen colonoscopy [facility] Phone: Start: 1970 DTaP/Tdap/Td vaccine (1 - Tdap) DTaP/Tdap/Td vaccine (1 - Tdap) [facility] Phone: Start: 1970 [employer] Work Phone: Start: 1969 Diabetic microalbumi agueda test Diabetic microalbuminuria test [facility] Phone: Start: 1969 [employer] Work Phone: Start: 1963 [employer] Phone: Start: 1961 Diabetic foot examination [facility] Phone: Start: 1961 Diabetic retinal exam Diabetic retin al exam [facility] [employer] Phone: Start: 1961 Hemoglobin A1c measurement [facility] [employer] Phone: Start: 1961 Lipid panel [facility] Work Phone: Start: 1961 [facility] Work Phone: Start: 1951 Hepatitis C screening M [facility] Work Phone: BIPAP [facility] [employer] Phone: End: 11-04-2020 Blood glucose - POCT Blood glucose - POCT Point of Care Testing Routine One Time for 1 Occurrences starting 11/04/2020 until 11/04/2020 [facility] Phone: Comment on above: One Time for 1 Occur rences starting 11/04/2020 until 11/04/2020 CBC panel - Blood by Automated count [facility] Phone: Continuous pulse oximetry [facility] Work Phone: Glucose [Mass/volume ] in Serum or Plasma [facility] [employer] Phone: Comment on above: As Needed until disc ontinued starting 11/04/2020 Hepatic function 200 0 panel - Serum or Plasma [facility] [employer] Phone: Intermittent pulse oximetry [facility] [employer] Phone: Magnesium [Mass/volu me] in Serum or Plasma [facility] [employer] Phone: End: 08-27-2020 Magnesium Lab [facility] [employer] Phone: Nasal Cannula Oxygen [facility] Work Phone: Oxygen therapy [[facility] Data Set] [facility] [employer] Phone: Comment on above: Daily until disconti nued starting 11/04/2020 Procalcitonin [facility] Work Phone: PROTIME-INR [facility] [facility] Work Phone: End: 08-27-2020 Wound ostomy eval and treat [facility] [employer] Work Phone: Immunizations Immunization Date Immunization Notes Care Provider Fa justine 06-03-2020 COVID-19, Pfizer, PF , 30mcg/0.3mL Alexis Ramon MD Work Phone: [facility] Work Phone: 05-13-2020 COVID-19, Pfizer, PF , 30mcg/0.3mL Alexis Ramon MD Work Phone: [facility] Work Phone: Payers Date Payer Category Payer Private Health Insurance [id number] 2017 Medicare [id number] 1959 Unknown [id number] 1951 Unknown [id number] 2.16.8 [id number] 1951 Unknown [id number] 2.16.8 [id number] 1951 Unknown [id number] 2.16.84 [id number] 1951 Unknown [id number] 2.16.84 [id number] 1951 Unknown [id number] 2.16.8 [id number] 1951 Unknown [id number] 2.16. [id number] 1951 Unknown [id number] 2.16. [id number] Social History Date Type Detail Facility Start: 08-30-2020 End: 10-18-2020 Tobacco smoking status NHIS Never smoker [employer] Phone: Start: 08-30-2020 End: 10-18-2020 Tobacco use and exposure Never used [employer] Start: 1950 Sex Assigned At M [employer] Phone: Exposure to SARS-CoV -2 (event) Not sure [facility] Medical Equipment Procedure Code Equipment Code Equipment Origin al Text Equipment Identifier Dates [id number] Start: 08-28-2020 History and physical note 05-07-2023 Note Date & Type Note Facility 05-07-2023 Note [id number] F [facility] Clinical Note 05-03-2023 Note Date & Type Note Facility 05-03-2023 Note [facility] SURGERY Clinical Discharge Summary PERSON INFORMATION Name KAMRAN HARLEY Age 73 Years 1950 Sex MALE Language Bolivian PCP JESUS CHOPRA JR. Marital Status Med Service Ambulatory Surgery Acct# Arrival 05/03/2023 13:13:07 Visit Reason SURGERY - LOCAL CYSTO Acuity LOS 044 00:34 Address: [address] [place] [address] Comment: PROVIDER INFORMATION VITALS INFORMATION Vital Sign Triage Latest Temp Oral Temp Temporal Temp Intravascular Temp Axillary Temp Rectal 02 Sat 100 % 98 % Respiratory Rate Peripheral Pulse Rate Apical Heart Rate Blood Pressure / 90 mmHg / 70 mmHg Comment: MEDICAL INFORMATION Allergy Info: Terramycin; sulfa topical; penicillin Prescriptions Given: ascorbic acid (Vitamin C 500 mg oral tablet) 1 tab(s) Oral (given by mouth) every day. atorvastatin (atorvastatin 20 mg oral tablet) 1 tab(s) Oral (given by mouth) every day. biotin (biotin 1000 mcg oral tablet) 1 tab(s) Oral (given by mouth) 2 times a day (scheduled). cephalexin (cephalexin 500 mg oral capsule) 1 tab(s) Oral (given by mouth) every day. cholecalciferol (Vitamin D3 5000 intl units oral tablet) 1 tab(s) Oral (given by mouth) every day. dapagliflozin-metformin (Xigduo XR 5 mg-1000 mg oral tablet, extended release) 1 tab(s) Oral (given by mouth) 2 times a day (scheduled). DULoxetine (DULoxetine 60 mg oral delayed release capsule) 1 cap(s) Oral (given by mouth) every day. (do not crush or chew). furosemide (furosemide 20 mg oral tablet) 1 tab(s) Oral (given by mouth) every day as needed Other (see comment). edema. insulin regular (Humulin R 100 units/mL injectable solution) Subcutaneous (under the skin) 3 times a day before meals. per sliding scale. losartan (losartan 50 mg oral tablet) 0.5 tab(s) Oral (given by mouth) every day. multivitamin (Multivitamin, generic) 1 tab(s) Oral (given by mouth) every day. omeprazole (omeprazole 20 mg oral delayed release capsule) 1 cap(s) Oral (given by mouth) every day. Template Non-Formulary (CYANOCOBALAMIN 1,000 MCG/ML) Intramuscular once a month. warfarin (warfarin 5 mg oral tablet) 1 tab(s) Oral (given by mouth) Every Sunday. warfarin (warfarin 7.5 mg oral tablet) 1 tab(s) Oral (given by mouth) Sunday, Sunday, Sunday, , Sunday and Sunday. Medication List: Medications That Were Updated - Follow Below Instructions Other Medications Updated: insulin regular (Humulin R 100 units/mL injectable solution) Subcutaneous (under the skin) 3 times a day before meals. per sliding scale. Medications to Continue That Have Not Changed Other Medications ascorbic acid (Vitamin C 500 mg oral tablet) 1 tab(s) Oral (given by mouth) every day. atorvastatin (atorvastatin 20 mg oral tablet) 1 tab(s) Oral (given by mouth) every day. biotin (biotin 1000 mcg oral tablet) 1 tab(s) Oral (given by mouth) 2 times a day (scheduled). cephalexin (cephalexin 500 mg oral capsule) 1 tab(s) Oral (given by mouth) every day. cholecalciferol (Vitamin D3 5000 intl units oral tablet) 1 tab(s) Oral (given by mouth) every day. dapagliflozin-metformin (Xigduo XR 5 mg-1000 mg oral tablet, extended release) 1 tab(s) Oral (given by mouth) 2 times a day (scheduled). DULoxetine (DULoxetine 60 mg oral delayed release capsule) 1 cap(s) Oral (given by mouth) every day. (do not crush or chew). furosemide (furosemide 20 mg oral tablet) 1 tab(s) Oral (given by mouth) every day as needed Other (see comment). edema. losartan (losartan 50 mg oral tablet) 0.5 tab(s) Oral (given by mouth) every day. multivitamin (Multivitamin, generic) 1 tab(s) Oral (given by mouth) every day. omeprazole (omeprazole 20 mg oral delayed release capsule) 1 cap(s) Oral (given by mouth) every day. Template Non-Formulary (CYANOCOBALAMIN 1,000 MCG/ML) Intramuscular once a month. warfarin (warfarin 5 mg oral tablet) 1 tab(s) Oral (given by mouth) Every Sunday. warfarin (warfarin 7.5 mg oral tablet) 1 tab(s) Oral (given by mouth) Sunday, Sunday, Sunday, , Sunday and Sunday. Medications That Were Updated - Follow Below Instructions Other Medications Updated: insulin regular (Humulin R 100 units/mL injectable solution) Subcutaneous (under the skin) 3 times a day before meals. per sliding scale. Medications to Continue That Have Not Changed Other Medications ascorbic acid (Vitamin C 500 mg oral tablet) 1 tab(s) Oral (given by mouth) every day. atorvastatin (atorvastatin 20 mg oral tablet) 1 tab(s) Oral (given by mouth) every day. biotin (biotin 1000 mcg oral tablet) 1 tab(s) Oral (given by mouth) 2 times a day (scheduled). cephalexin (cephalexin 500 mg oral capsule) 1 tab(s) Oral (given by mouth) every day. cholecalciferol (Vitamin D3 5000 intl units oral tablet) 1 tab(s) Oral (given by mouth) every day. dapagliflozin-metformin (Xigduo XR 5 mg-1000 mg oral tablet, extended release) 1 tab(s) Oral (given by mouth) 2 times a day (more content not included)... [facility] Discharge instructions 11-04-2020 InstructionsAttachments Note Date & Type Note Facility 11-04-2020 Hospital Discharg e instructions Faiza Hamilton RN - 11/04/2020 Images from the original note were not included. Upper GI Endoscopy: What to Expect at Home Your Recovery After you have an endoscopy, you will stay at the hospital or clinic for 1 to 2 hours. This will allow the medicine to wear off. You will be able to go home after your doctor or nurse checks to make sure you are not having any problems. You may have a sore throat for a day or two after the test. This care sheet gives you a general idea about what to expect after the test. How can you care for yourself at home? Activity Rest as much as you need to after you go home. You should be able to go back to your usual activities the day after the test. Diet Follow your doctor's directions for eating after the test. Drink plenty of fluids (unless your doctor has told you not to). Follow-up care is a tipton part of your treatment and safety. Be sure to make and go to all appointments, and call your doctor if you are having problems. It's also a good idea to know your test results and keep a list of the medicines you take. When should you call for help? Call 911 anytime you think you may need emergency care. For example, call if: You passed out (lost consciousness). You cough up blood. You vomit blood or what looks like coffee grounds. You pass maroon or very bloody stools. Call your doctor now or seek immediate medical care if: You have trouble swallowing. You have belly pain. Your stools are black and tarlike or have streaks of blood. You are sick to your stomach or cannot keep fluids down. Watch closely for changes in your health, and be sure to contact your doctor if: Your throat still hurts after a day or two. You do not get better as expected. Where can you learn more? Go to https://[employer].org and sign in to your [employer] account. Enter J454 in the Search Health Information box to learn more about Upper GI Endoscopy: What to Expect at Home. If you do not have an account, please click on the Sign Up Now link. [employer]. Care instructions adapted under license by [employer]. This care instruction is for use with your licensed healthcare professional. If you have questions about a medical condition or this instruction, always ask your healthcare professional. [employer] disclaims any warranty or liability for your use of this information. Content Version: 9.9.179050; Last Revised: May 01, 2012 The following attachments cannot be sent through Care Everywhere.ERCP (Endoscopic Retrograde Cholangiopancreatogram): Post-op (Bolivian)documented in this encounter [employer] Phone: History of Present illness Narrative 09-06-2020 Main Ascencio MD - 09/06/2020 8:01 PM Eddi Israel MD - 09/06/2020 10:35 AM Erica Scott RN - 09/06/2020 9:07 AM Adrienne Nunez MD - 09/06/2020 8:47 AM EDT Note Date & Type Note Facility 09-06-2020 History of Present illness Narrative Images from the original note were not included. [facility] Office: [phone] Epifanio Bradley DO, Jesus Poe DO, Lobito Hope DO, Lobo Wallace DO, Ibrahima Green MD, Rupinder Gonzalez MD, Josesito Aquino MD, Harvey Dotson MD, Eduardo Kolb MD, Dori Ag MD, Jose R Izaguirre MD, Trina Kay MD, Andrew Amezquita DO, Yumiko Casanova MD, Brody Pizano DO, Nacho Espino MD, Gelacio Epps DO, Main Ascencio MD, Milton James MD, Roxanne Martin MD, Guilherme Duff MD, Jasmyn Howard CNP, Zara Ferreira CNP, Estephanie Renee CNP, Leana Martinez, CHECKER LOADER, Carlos Abdul, PET CAREGIVER, Nuris Walter, PET CAREGIVER, Keely Tomas, PET CAREGIVER, Hemal Waite, PET CAREGIVER, Richard Burrows, PET CAREGIVER, Tye Castro PA-C, Rita Jacobo DNP, Jeannine Barakat, KITTY, Lila Baxter, KITTY, Buffy Mueller, KITTY, Ingrid Jarrett CNP, Maty Nieves CNP, Faiza Billings, KITTY [facility] IN-PATIENT SERVICE [facility] Progress Note 09/06/2020 8:01 PM Name: Kamran Harley Acct: [id number] Room: [address] [place] [address] Day: 10 Admit Date: 08/27/2020 12:46 PM PCP: Jesus Chopra, Code Status: Full Code Subjective: C/C: sepsis Interval History Status: not changed. Pt was seen and examined this morning No acute events overnight No complaints Does not like wearing his bipap at night Brief History: Per critical care note Patient originally arrived to the hospital on 618 with chief complaints of fatigue, not feeling well, UTI symptoms and shortness of breath. Transferred to ICU on hospital day 1 as he became hypotensive. Found to have acute ascending cholangitis, choledocholithiasis complicated by E. coli bacteremia. Infectious disease was consulted originally was placed on vancomycin and Zosyn and then transitioned on to meropenem with daily amikacin. GI and general surgery were consulted. Patient underwent an ERCP with stent placement and sphincterotomy on the . General surgery agrees with ERCP with stent placement, sphincterotomy no further percutaneous drainage recommended. Patient's vital signs improved, currently off all pressor support, tolerating 2 L nasal cannula, afebrile, leukocytosis improving. Patient is stable to be transferred to floor unit Review of Systems: 12 point ROS performed and negative for anythign other htan what was stated in subjective Medications: Allergies: Allergies Allergen Reactions Oxytetracycline Penicillins Had a penicillin shot when he was 7 years old and had hives. Tolerated Zosyn 08/27 without problems Suspect reaction was to the shot and not to the penicillin Sulfa Antibiotics Had hives Current Meds: Scheduled Meds: insulin glargine 50 Units Subcutaneous BID warfarin (COUMADIN) daily dosing (placeholder) Other RX Placeholder insulin lispro 0-18 Units Subcutaneous TID WC insulin lispro 0-9 Units Subcutaneous Nightly enoxaparin 40 mg Subcutaneous BID miconazole Topical BID meropenem 1,000 mg Intravenous Q8H sodium chloride flush 5-40 mL Intravenous 2 times per day Continuous Infusions: sodium chloride dextrose PRN Meds: HYDROcodone 5 mg - acetaminophen, diphenhydrAMINE, guaiFENesin, LORazepam, sodium chloride, acetaminophen OR acetaminophen, magnesium sulfate, ondansetron OR ondansetron, polyethylene glycol, potassium chloride OR potassium alternative oral replacement OR potassium chloride, glucose, dextrose, glucagon (rDNA), dextrose, sodium chloride flush Data: Past Medical History: has a past medical history of Chronic anticoagulation: Coumadin, Coagulopathy (HCC), HLD (hyperlipidemia), HTN (hypertension), Hypomagnesemia, 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 Social History: reports that he has never smoked. He has never used smokeless tobacco. Family History: Family History Problem Relation Age of Onset Diabetes Mother Other Father Vitals: BP 128/65 Pulse 57 Temp 97.6 F (36.4 C) (Temporal) Resp 16 Ht 6' 3 (1.905 m) Wt (!) 424 lb (192.3 kg) SpO2 94% BMI 53.00 kg/m Temp (24hrs), Av.4 F (36.9 C), Min:97.6 F (36.4 C), Max:99 F (37.2 C) Recent Labs 09/05/20 2144 09/06/20 0807 09/06/20 1225 09/06/20 1530 POCGLU 231* 100 238* 351* I/O (24Hr): Intake/Output Summary (Last 24 hours) at 09/06/20202000 Last data filed at 09/06/2020 1651 Gross per 24 hour Intake 150 ml Output 2150 ml Net -2000 ml Labs: Hematology: Recent Labs 09/04/20 0725 09/04/20 1945 09/05/20 0540 09/05/20 0643 09/06/20 0449 WBC 4.7 -- -- 5.0 5.2 RBC 4.29 -- -- 4.55 4.44 HGB 11.7* -- -- 12.5* 12.3* HCT 38.9* -- -- 40.1* 40.6* MCV 90.7 -- -- 88.1 91.4 MCH 27.3 -- -- 27.5 27.7 MCHC 30.1 -- -- 31.2 30.3 RDW 15.3* -- -- 15.3* 15.0* PLT 346 -- -- 308 416 MPV 10.7 -- -- 11.6 11.3 INR -- 1.0 1.0 -- 1.0 Chemistry: Recent Labs 09/04/20 0725 09/05/20 0540 09/06/20 0449 NA 137 -- -- K 3.7 -- -- CL 98 -- -- CO2 29 -- -- GLUCOSE 290* -- -- BUN 15 -- -- CREATININE 0.44* -- -- MG 1.8 1.8 1.7 ANIONGAP 10 -- -- LABGLOM >60 -- -- GFRAA >60 -- -- CALCIUM 8.5* -- -- Recent Labs 09/04/20 0725 09/04/20 0743 09/05/20 1210 09/05/20 1544 09/05/20 2144 09/06/20 0449 09/06/20 0807 09/06/20 1225 09/06/20 1530 PROT 5.6* -- -- -- -- 5.8* -- -- -- LABALBU 2.5* -- -- -- -- 2.9* -- -- -- AST 39 -- -- -- -- 46* -- -- -- ALT 35 -- -- -- -- 43* -- -- -- ALKPHOS 234* -- -- -- -- 220* -- -- -- BILITOT 1.70* -- -- -- -- 1.34* -- -- -- BILIDIR 0.93* -- -- -- -- 0.73* -- -- -- POCGLU -- < > 364* 412* 231* -- 100 238* 351* < > = values in this interval not displayed. ABG: Lab Results Component Value Date POCPH 7.354 08/29/2020 POCPCO2 40.5 08/29/2020 POCPO2 146.3 08/29/2020 POCHCO3 22.6 08/29/2020 NBEA 3 08/29/2020 PBEA NOT REPORTED 08/29/2020 UDT0TYB NOT REPORTED 08/29/2020 [id number] 99 08/29/2020 FIO2 40.0 08/29/2020 Lab Results Component Value Date/Time SPECIAL NOT REPORTED 08/27/2020 05:16 PM Lab Results Component Value Date/Time CULTURE (A) 08/27/2020 05:16 PM KLEBSIELLA PNEUMONIAE >142221 CFU/ML THIS ORGANISM IS AN EXTENDED-SPECTRUM BETA-LACTAMASE STAFF VETERINARIAN AND RESISTANCE TO THERAPY WITH PENICILLINS, CEPHALOSPORINS AND AZTREONAM IS EXPECTED. THESE ORGANISMS GENERALLY REMAIN SUSCEPTIBLE TO CARBAPENEMS. CONSIDER ID CONSULTATION. Radiology: XR CHEST PORTABLE Result Date: 08/31/2020 Pulmonary vascular congestion with interstitial pulmonary edema similar to prior study. Physical Examination: General appearance: alert, cooperative and no distress Mental Status: oriented to person, place and time and normal affect Lungs: Decreased breath sounds bilaterally Heart: regular rate and rhythm, no murmur Abdomen: RLQ end ileostomy noted Extremities: no edema, redness, tenderness in the calves Skin: no gross lesions, rashes, induration Assessment: Hospital Problems Last Modified POA * (Principal) Gram negative septicemia ([facility]) 08/30/2020 Yes Elevated liver enzymes 08/27/2020 Yes Diabetes mellitus ([facility]) 08/27/[address] ([facility]) 09/05/2020 Yes Paroxysmal A-fib ([facility]) 08/27/2020 Yes Transaminasemia 09/05/2020 Yes Panniculitis 08/27/2020 Yes Supratherapeutic INR 08/27/2020 Yes Hypomagnesemia 08/27/2020 Yes Class 3 severe obesity due to excess calories with serious comorbidity and body mass index (BMI) of 50.0 to 59.9 in adult ([facility]) 08/29/2020 Yes HTN (hypertension) 08/27/2020 Yes Coagulopathy ([facility]) 08/27/2020 Yes Chronic anticoagulation: Coumadin 08/27/2020 Yes Sepsis (HCC) 08/27/2020 Yes History of DVT (deep vein thrombosis) 08/27/2020 Yes Acute encephalopathy 08/28/2020 Yes Acute cholangitis 08/30/2020 Yes Complicated UTI (urinary tract infection) 08/28/2020 Yes Ascending cholangitis 09/05/2020 Yes Morbid obesity (HCC) 08/30/2020 Yes Acute respiratory failure with hypoxia (HCC) 09/05/2020 Clinically Undetermined Plan: 1. Sepsis due to ESBL and klebsiella 2. UTI 3. Cholangitis w/ obstructive stone 4. CHACE 5. Chronic paraplegia - S/P ERCP 08/28 with sphincterotomy and multiple stones removal - Resumed home lasix on discharge, needed couple of IV doses. - BiPAP at night time, pt does not like using his bipap and continues to refuse wearing it at night - Continue supplemental oxygen - meropenem course of 10 days to be finished today - Per GI, warfarin to be held for 7 days after ERCP and sphincterotomy - Warfarin restarted 09/04, PTD. - Continue blood pressure and glycemic control - Resume home insulin, atient is also on Ozempic at home - Continue other chronic meds for his chronic conditions.. - Appreciate GI and ID recommendations - Check electrolytes and replace as needed. - DVT and GI prophylaxis - Discussed with the patient - Midline can be removed on DC as there is no need for any more Abx per ID - PT/OT - DC planning - Needs sleep study as OP , [facility] Main Ascencio MD 09/06/2020 8:01 PM Images from the original note were not included. [facility] Progress Note Kamran Harley Date: 09/06/2020 LOS: 10 Reason for F/U : E. coli and ESBL Klebsiella urinary tract infection Impression : 1. Polymicrobial sepsis with E. coli and ESBL Klebsiella 2. ESBL Klebsiella urinary tract infection/pyelonephritis 3. Cholangitis with obstructive stone status post ERCP 08/28/2020 with sphincterotomy and multiple stone removal 4. Acute kidney injury 5. Morbid obesity 6. Paraplegia Recommendations: Continue intravenous antimicrobial therapy with meropenem through 09/06/2020 to complete a 10-day course of therapy The plan is for discharge back to the facility once his CPAP/BiPAP machine is available Clinically the patient is doing better. 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 He feels he has had some dysuria and is concerned he might be having a UTI. Came to the ER he was having fever, blood cultures taken and he was sent to the floor Today he is getting short of breath lethargic, tachycardic, hypotensive. He was started on vancomycin and Zosyn, since blood cultures are showing gram-negative rods Urine culture remains pending gram-negative rods CT of the abdomen showed normal kidneys, gallbladder showed multiple stones with some obstruction, suspect there is for ascending cholangitis, there is edema around the gallbladder as well GI contemplating ERCP once more stable Patient being transferred to the ICU 08/28: Discussed with GI, they will defer ERCP till he stabilizes, agree with cholecystostomy in the meantime to decompress Patient sleepy arousable very appropriate, discussed with him his allergy to penicillin as stated in the impression section. He tolerated Zosyn so far without any hives He does have a tenderness over the right upper quadrant Multiple over both knees Lees with hemal urine but no cloudiness Presents with septic shock and acute encephalopathy, progressing during his admission, gram-negative septicemia seems to be related to a complicated UTI but also to an obstructive cholangitis Patient has progressed into severe sepsis during his admission and hence he is at risk to develop multiorgan failure He did have a history of UTIs, multiple antibiotic intake in the past and hence he is at risk for MDRO gram-negative Current evaluation:09/06/2020 BP 128/65 Pulse 57 Temp 97.6 F (36.4 C) (Temporal) Resp 16 Ht 6' 3 (1.905 m) Wt (!) 424 lb (192.3 kg) SpO2 94% BMI 53.00 kg/m Temperature Range: Temp: 97.6 F (36.4 C) Temp Av.3 F (36.8 C) Min: 97.5 F (36.4 C) Max: 99 F (37.2 C) The patient is seen and evaluated at bedside he is awake and alert in no acute distress. No abdominal pain nausea vomiting or diarrhea. No chest pains or palpitations. No fevers or chills. Review of Systems Constitutional: Negative. Respiratory: Negative. Cardiovascular: Negative. Gastrointestinal: Negative. Genitourinary: Negative. Musculoskeletal: Negative. Allergic/Immunologic: Negative. Neurological: Paraplegia Physical Examination : Physical Exam Constitutional: Appearance: He is well-developed. He is obese. HENT: Head: Normocephalic and atraumatic. Cardiovascular: Rate and Rhythm: Normal rate. Heart sounds: Normal heart sounds. No friction rub. No gallop. Pulmonary: Effort: Pulmonary effort is normal. Breath sounds: Normal breath sounds. No wheezing. Abdominal: General: Bowel sounds are normal. Palpations: Abdomen is soft. There is no mass. Tenderness: There is no abdominal tenderness. Genitourinary: Comments: Indwelling Lees catheter Musculoskeletal: Cervical back: Neck supple. Lymphadenopathy: Cervical: No cervical adenopathy. Skin: General: Skin is warm and dry. Comments: Bilateral lower extremity venous stasis dermatitis skin changes Neurological: Mental Status: He is alert and oriented to person, place, and time. Comments: Paraplegia Laboratory data: I have independently reviewed the followinglabs: CBC with Differential: Recent Labs 09/05/20 0643 09/06/209 WBC 5.0 5.2 HGB 12.5* 12.3* HCT 40.1* 40.6* PLT 308 416 BMP: Recent Labs 09/04/20 0725 09/04/20 0725 09/05/20 0540 09/06/209 NA 137 -- -- -- K 3.7 -- -- -- CL 98 -- -- -- CO2 29 -- -- -- BUN 15 -- -- -- CREATININE 0.44* -- -- -- MG 1.8 < > 1.8 1.7 < > = values in this interval not displayed. Hepatic Function Panel: Recent Labs 09/04/20 0725 09/06/20 0449 PROT 5.6* 5.8* LABALBU 2.5* 2.9* BILIDIR 0.93* 0.73* IBILI 0.77 0.61 BILITOT 1.70* 1.34* ALKPHOS 234* 220* ALT 35 43* AST 39 46* Lab Results Component Value Date PROCAL 0.57 09/04/2020 PROCAL 1.53 09/02/2020 PROCAL 5.75 08/31/2020 No results found for: CRP No results found for: SEDRATE No results found for: DDIMER No results found for: FERRITIN No results found for: LDH No results found for: FIBRINOGEN Results in Past 30 Days Result Component Current Result Ref Range Previous Result Ref Range SARS-CoV-2, Rapid Not Detected (08/28/2020) Not Detected Not in Time Range Lab Results Component Value Date COVID19 Not Detected 08/28/2020 No results for input(s): VANCOTROUGH in the last 72 hours. Imaging Studies: No new imaging Cultures: Culture, Blood 2 [[id number]] Collected: 08/27/20 1505 Order Status: Completed Specimen: Blood Updated: 09/04/20 2206 Specimen Description .BLOOD Special Requests R H 10 ML Culture NO GROWTH 5 DAYS Culture, Blood 1 [[id number]] Collected: 08/27/20 1642 Order Status: Completed Specimen: Blood Updated: 09/02/20 0010 Specimen Description .BLOOD Special Requests L HAND TOP 2 ML Culture NO GROWTH 6 DAYS Culture, Blood 1 [[id number]] (Abnormal) Collected: 08/27/20 1431 Order Status: Completed Specimen: Blood Updated: 09/01/20 0814 Specimen Description .BLOOD Special Requests LT HAND 7.5ML Culture POSITIVE Blood Culture Results called to and read back by: REGINO Mtz 08/28/20 0315Abnormal DIRECT GRAM STAIN FROM BOTTLE: GRAM NEGATIVE RODS Escherichia coli Detected: Methodology- Polymerase Chain Reaction (PCR)Abnormal ESCHERICHIA COLIAbnormal Culture, Blood 1 [[id number]] (Abnormal) Collected: 08/27/20 1420 Order Status: Completed Specimen: Blood Updated: 08/31/20 1025 Specimen Description .BLOOD Special Requests RT FOREARM 6 ML Culture POSITIVE Blood Culture Results called to and read back by: REGINO Mtz 08/28/20 0315Abnormal DIRECT GRAM STAIN FROM BOTTLE: GRAM NEGATIVE RODS ESCHERICHIA COLIAbnormal KLEBSIELLA PNEUMONIAE THIS ORGANISM IS AN EXTENDED-SPECTRUM BETA-LACTAMASE STAFF VETERINARIAN AND RESISTANCE TO THERAPY WITH PENICILLINS, CEPHALOSPORINS AND AZTREONAM IS EXPECTED. THESE ORGANISMS GENERALLY REMAIN SUSCEPTIBLE TO CARBAPENEMS. CONSIDER ID CONSULTATION.Abnormal Escherichia coli (3) Antibiotic Interpretation JASON Status amikacin Final NOT REPORTED ampicillin Resistant Final >=32 RESISTANT ampicillin-sulbactam Final NOT REPORTED aztreonam Sensitive Final <=1 SUSCEPTIBLE ceFAZolin Sensitive Final <=4 SUSCEPTIBLE cefepime Final NOT REPORTED cefTRIAXone Sensitive Final <=1 SUSCEPTIBLE ciprofloxacin Sensitive Final 1 SUSCEPTIBLE ertapenem Final NOT REPORTED Confirmatory Extended Spectrum Beta-Lactamase Negative NEGATIVE Final gentamicin Sensitive Final <=1 SUSCEPTIBLE meropenem Final NOT REPORTED nitrofurantoin Final NOT REPORTED tigecycline Final NOT REPORTED tobramycin Sensitive Final <=1 SUSCEPTIBLE trimethoprim-sulfamethoxazole Sensitive Final <=20 SUSCEPTIBLE piperacillin-tazobactam Sensitive Final <=4 SUSCEPTIBLE Klebsiella pneumoniae (4) Antibiotic Interpretation JASON Status amikacin Final NOT REPORTED ampicillin Resistant Final >=32 RESISTANT ampicillin-sulbactam Final NOT REPORTED aztreonam Resistant Final 32 RESISTANT ceFAZolin Resistant Final >=64 RESISTANT cefepime Resistant Final 2 RESISTANT cefTRIAXone Resistant Final >=64 RESISTANT ciprofloxacin Resistant Final >=4 RESISTANT ertapenem Final NOT REPORTED Confirmatory Extended Spectrum Beta-Lactamase Positive POSITIVE Final gentamicin Sensitive Final <=1 SUSCEPTIBLE meropenem Sensitive Final <=0.25 SUSCEPTIBLE nitrofurantoin Final NOT REPORTED tobramycin Intermediate Final 8 INTERMEDIATE trimethoprim-sulfamethoxazole Resistant Final >=320 RESISTANT piperacillin-tazobactam Resistant Final 32 RESISTANT MRSA DNA Probe, Nasal [[id number]] (Abnormal) Collected: 08/28/20 1447 Order Status: Completed Specimen: Nasal Updated: 08/29/20 1321 Specimen Description .NASAL SWAB MRSA, DNA, Nasal POSITIVE: MRSA DNA detected by nucleic acid amplification.Abnormal Comment: Results should be used as an adjunct to nosocomial control efforts to identify patients needing enhanced precautions. The test is not intended to identify patients with staphylococcal infections. Results should not be used to guide or monitor treatment for MRSA infections. Culture, Urine [[id number]] (Abnormal) Collected: 08/27/20 1716 Order Status: Completed Specimen: Urine, clean catch Updated: 08/29/20 0821 Specimen Description .CLEAN CATCH URINE Special Requests NOT REPORTED Culture KLEBSIELLA PNEUMONIAE >[id number] CFU/ML THIS ORGANISM IS AN EXTENDED-SPECTRUM BETA-LACTAMASE STAFF VETERINARIAN AND RESISTANCE TO THERAPY WITH PENICILLINS, CEPHALOSPORINS AND AZTREONAM IS EXPECTED. THESE ORGANISMS GENERALLY REMAIN SUSCEPTIBLE TO CARBAPENEMS. CONSIDER ID CONSULTATION.Abnormal Klebsiella pneumoniae (1) Antibiotic Interpretation JASON Status amikacin Final NOT REPORTED ampicillin Resistant Final >=32 RESISTANT ampicillin-sulbactam Final NOT REPORTED aztreonam Resistant Final >=64 RESISTANT ceFAZolin Resistant Final >=64 RESISTANT ceFAZolin Resistant Cefazolin sensitivity results can be used to predict the effectiveness of oral cephalosporins (eg. Cephalexin) in uncomplicated Urinary Tract Infections due to E. coli, K. pneumoniae, and P. mirabilis Final cefepime Resistant Final >=64 RESISTANT cefTRIAXone Resistant Final >=64 RESISTANT ciprofloxacin Intermediate Final 2 INTERMEDIATE ertapenem Final NOT REPORTED Confirmatory Extended Spectrum Beta-Lactamase Positive POSITIVE Final gentamicin Sensitive Final <=1 SUSCEPTIBLE meropenem Sensitive Final <=0.25 SUSCEPTIBLE nitrofurantoin Intermediate Final 64 INTERMEDIATE tigecycline Final NOT REPORTED tobramycin Intermediate Final 8 INTERMEDIATE trimethoprim-sulfamethoxazole Resistant Final >=320 RESISTANT piperacillin-tazobactam Resistant Final 64 RESISTANT COVID-19, Rapid [[id number]] Collected: 08/28/201451 Order Status: Completed Specimen: Nasopharyngeal Swab Updated: 08/28/201452 Specimen Description .NASOPHARYNGEAL SWAB SARS-CoV-2, Rapid Not Detected Comment: Rapid NAAT: The specimen is NEGATIVE for SARS-CoV-2, the novel coronavirus associated with COVID-19. The ID NOW COVID-19 assay is designed to detect the virus that causes COVID-19 in patients with signs and symptoms of infection who are suspected of COVID-19. An individual without symptoms of COVID-19 and who is not shedding SARS-CoV-2 virus would expect to have a negative (not detected) result in this assay. Negative results should be treated as presumptive and, if inconsistent with clinical signs and symptoms or necessary for patient management, should be tested with an alternative molecular assay. Negative results do not preclude SARS-CoV-2 infection and should not be used as the sole basis for patient management decisions. Fact sheet for Healthcare Providers: https://www.fda.gov/media/167996/downlo ad Fact sheet for Patients: https://www.fda.gov/media/912703/downlo ad Methodology: Isothermal Nucleic Acid Amplification Medications: warfarin 15 mg Oral Once insulin glargine 50 Units Subcutaneous BID insulin regular 15 Units Subcutaneous Lunch warfarin (COUMADIN) daily dosing (placeholder) Other RX Placeholder insulin lispro 0-18 Units Subcutaneous TID WC insulin lispro 0-9 Units Subcutaneous Nightly enoxaparin 40 mg Subcutaneous BID miconazole Topical BID meropenem 1,000 mg Intravenous Q8H sodium chloride flush 5-40 mL Intravenous 2 times per day [facility] Eddi Moreau MD [employer] messaging OFFICE: Thank you for allowing us to participate in the care of this patient. Please call with questions. This note iscreated with the assistance of a speech recognition program. While intending to generate a document that actually reflects the content of the visit, the document can still have some errors including those of syntax andsound a like substitutions which may escape proof reading. In such instances, actual meaning can be extrapolated by contextual diversion. Pt transferred via ambulance/stretcher to [facility]. Pt given HS meds prior to leaving. Pt A&Ox4. VS WNL. PULMONARY & CRITICAL CARE MEDICINE PROGRESS NOTE Patient: Kamran Harley Admit date: 08/27/2020 Primary Care Physician: Jesus Chopra DO Consulting Physician: Main Ascencio MD CODE Status: Full Code LOS: 10 SUBJECTIVE BRIEF HOSPITAL COURSE: The patient is a 70 y.o. male morbidly obese, history of paroxysmal A. fib, HTN/HLD, history of DVTs on Coumadin, presenting with generalized discomfort nausea and chills. Initial labs revealed a significant supratherapeutic INR of 12.[address] scan of the abdomen and pelvis showing evidence of acute cholecystitis with multiple CBD stones. Initially was tachycardic and hypotensive and transferred to ICU. 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 Subsequently underwent ERCP on the with stone and pus extraction with biliary stent placement. Concurrently on meropenem and transferred out of the ICU. History of undiagnosed likely sleep apnea/OHS overlap and was hypoxic yesterday with improved with Lasix and or nightly BiPAP. Currently on 3 L. INTERVAL HISTORY: 09/06/20 No acute issues overnight, await placement. REVIEW OF SYSTEMS: Constitutional: Negative for activity change, appetite change, chills, diaphoresis and fatigue. HENT: Negative. Eyes: Negative. Respiratory: Negative for apnea, cough, choking, chest tightness and shortness of breath. Cardiovascular: Negative. Negative for chest pain and leg swelling. Gastrointestinal: Negative. Endocrine: Negative. Genitourinary: Negative. Negative for difficulty urinating, dysuria, enuresis and flank pain. Musculoskeletal: Negative for arthralgias, back pain and gait problem. Skin: Negative. Allergic/Immunologic: Negative. Neurological: Negative. OBJECTIVE VITAL SIGNS: LAST: BP 128/65 Pulse 57 Temp 97.6 F (36.4 C) (Temporal) Resp 16 Ht 6' 3 (1.905 m) Wt (!) 424 lb (192.3 kg) SpO2 94% BMI 53.00 kg/m 8-24 HR RANGE: TEMP Temp Av.3 F (36.8 C) Min: 97.5 F (36.4 C) Max: 99 F (37.2 C) BP Systolic (24hrs), Av , Min:124 , Max:132 Diastolic (24hrs), Av, Min:59, Max:75 PULSE Pulse Av.8 Min: 37 Max: 97 RR Resp Av Min: 16 Max: 16 O2 SAT SpO2 Av % Min: 94 % Max: 94 % OXYGEN DELIVERY No data recorded SYSTEMIC EXAMINATION: General appearance -comfortable, morbidly obese Mental status -awake and alert Eyes - pupils equal and reactive, sclera anicteric Mouth - mucous membranes moist, pharynx normal without lesions Neck - supple, no significant adenopathy, carotids upstroke normal bilaterally, no bruits Chest -bilateral decreased breath sound at bases. No crackles or wheezes appreciated. Heart - normal rate, regular rhythm, normal S1, S2, no murmurs, rubs, clicks or gallops Abdomen -right lower quadrant end ileostomy. Neurological - DTR's normal and symmetric, motor and sensory grossly normal bilaterally Extremities - peripheral pulses normal, no pedal edema, no clubbing or cyanosis Skin - normal coloration and turgor, no rashes, no suspicious skin lesions noted DATA REVIEW Medications: Scheduled Meds: warfarin 15 mg Oral Once insulin glargine 50 Units Subcutaneous BID insulin regular 15 Units Subcutaneous Lunch warfarin (COUMADIN) daily dosing (placeholder) Other RX Placeholder insulin lispro 0-18 Units Subcutaneous TID WC insulin lispro 0-9 Units Subcutaneous Nightly enoxaparin 40 mg Subcutaneous BID miconazole Topical BID meropenem 1,000 mg Intravenous Q8H sodium chloride flush 5-40 mL Intravenous 2 times per day Continuous Infusions: sodium chloride dextrose INPUT/OUTPUT: In: 1430 [P.O.:1280; I.V.:150] Out: 3300 [Urine:3000] Date 09/06/20 0000 - 09/06/20 2359 Shift 4363-1262 4720-7918 8454-1815 24 Hour Total INTAKE I.V.(mL/kg) 150(0.8) 150(0.8) Shift Total(mL/kg) 150(0.8) 150(0.8) OUTPUT Urine(mL/kg/hr) 1500(1) 1500 Stool(mL/kg) 300(1.6) 300(1.6) Shift Total(mL/kg) 1800(9.4) 1800(9.4) Weight (kg) 192.3 192.3 192.3 192.3 LABS: ABGs: No results for input(s): POCPH, POCPCO2, POCPO2, POCHCO3, [id number] in the last 72 hours. CBC: Recent Labs 09/04/20 0725 09/05/20 0643 09/06/20 0449 WBC 4.7 5.0 5.2 HGB 11.7* 12.5* 12.3* HCT 38.9* 40.1* 40.6* MCV 90.7 88.1 91.4 PLT 346 308 416 RBC 4.29 4.55 4.44 MCH 27.3 27.5 27.7 MCHC 30.1 31.2 30.3 RDW 15.3* 15.3* 15.0* CRP: No results for input(s): CRP in the last 72 hours. LDH: No results for input(s): LDH in the last 72 hours. BMP: Recent Labs 09/04/20 0725 NA 137 K 3.7 CL 98 CO2 29 BUN 15 CREATININE 0.44* GLUCOSE 290* Liver Function Test: Recent Labs 09/04/20 0725 09/06/20 0449 PROT 5.6* 5.8* LABALBU 2.5* 2.9* ALT 35 43* AST 39 46* ALKPHOS 234* 220* BILITOT 1.70* 1.34* Coagulation Profile: Recent Labs 09/04/20 1945 09/05/20 0540 09/06/20 0449 INR 1.0 1.0 1.0 PROTIME 10.4 11.1 11.0 D-Dimer: No results for input(s): DDIMER in the last 72 hours. Lactic Acid: No results for input(s): LACTA in the last 72 hours. Cardiac Enzymes: No results for input(s): CKTOTAL, CKMB, CKMBINDEX, TROPONINI in the last 72 hours. Invalid input(s): TROPONIN, HSTROP BNP/ProBNP: No results for input(s): BNP, PROBNP in the last 72 hours. Triglycerides: No results for input(s): TRIG in the last 72 hours. Microbiology: Urine Culture: No components found for: CURINE Blood Culture: No components found for: CBLOOD, CFUNGUSBL Sputum Culture: No components found for: CSPUTUM No results for input(s): SPECDESC, SPECIAL, CULTURE, STATUS, ORG, CDIFFTOXPCR, CAMPYLOBPCR, SALMONELLAPC, SHIGAPCR, SHIGELLAPCR, MPNEUG, MPNEUM, LACTOQL in the last 72 hours. No results for input(s): SPUTUM, SPECDESC, SPECIAL, CULTURE, STATUS, ORG, CDIFFTOXPCR, MPNEUM, MPNEUG in the last 72 hours. Invalid input(s): CURINE, CBLOOD, CFUNGUSBL Pathology: Radiology Reports: XR CHEST PORTABLE Final Result Pulmonary vascular congestion with interstitial pulmonary edema similar to prior study. XR CHEST PORTABLE Final Result Improved aeration of lung compared to prior study interval removal of endotracheal tube. Right-sided central venous catheter remains unchanged. Persistent chronic interstitial markings bilaterally with no evidence for effusions. US GALLBLADDER RUQ Final Result Markedly limited examination due to patient body habitus and overlying bowel gas. Evaluation for cholelithiasis or acute cholecystitis is limited on this study. As a was inflammatory changes seen about the gallbladder the recent CT, if there is clinical concern for acute cholecystitis, HIDA scan may be considered for further evaluation. Patient's known choledocholithiasis is not well appreciated sonographically. The common bile duct appears normal in caliber measuring 5 mm. Increased echogenicity of the liver parenchyma, which may reflect underlying hepatic steatosis or other chronic liver parenchymal disease. XR CHEST PORTABLE Final Result Supportive tubing projects in normal position. Vascular congestion. Mild bibasilar atelectasis or airspace disease, with improved aeration on the left in the interval. XR ABDOMEN FOR NG/OG/NE TUBE PLACEMENT Final Result Nasogastric tube projects in normal position. FLUORO FOR SURGICAL PROCEDURES Final Result XR CHEST PORTABLE Final Result Possible mild pulmonary vascular congestion CT HEAD WO CONTRAST Final Result No acute intracranial abnormality. CT CHEST PULMONARY EMBOLISM W CONTRAST Final Result CTA OF THE CHEST: 1. No pulmonary embolism. 2. Dilation of the main pulmonary artery may signify pulmonary arterial hypertension. 3. No evidence of pneumonia. CT OF THE ABDOMEN AND PELVIS: 1. Edema surrounding the gallbladder, likely indicating acute cholecystitis. While no cholelithiasis is evident by CT, multiple calculi are seen in the common bile duct (choledocholithiasis). 2. Status post colectomy with right lower quadrant ileostomy. 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 No bowel wall thickening or obstruction. 3. Status post left inguinal hernia repair, with evidence of a recurrent shallow fat-containing hernia. No evidence of fat strangulation. CT ABDOMEN PELVIS W IV CONTRAST Additional Contrast? None Final Result CTA OF THE CHEST: 1. No pulmonary embolism. 2. Dilation of the main pulmonary artery may signify pulmonary arterial hypertension. 3. No evidence of pneumonia. CT OF THE ABDOMEN AND PELVIS: 1. Edema surrounding the gallbladder, likely indicating acute cholecystitis. While no cholelithiasis is evident by CT, multiple calculi are seen in the common bile duct (choledocholithiasis). 2. Status post colectomy with right lower quadrant ileostomy. 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 No bowel wall thickening or obstruction. 3. Status post left inguinal hernia repair, with evidence of a recurrent shallow fat-containing hernia. No evidence of fat strangulation. Echocardiogram: Results for orders placed during the hospital encounter of 08/27/20 ECHO Complete 2D W Doppler W Color Summary Technically difficult study Normal LV size , mildly increased LV wall thickness. No obvious wall motion abnormality seen. Normal LV systolic function with LVEF 55%. Normal RV size and function. LA and RA appears normal in size. No obvious significant structural valvular abnormality noted. No significant valvular stenosis or regurgitation noted. Normal aortic root dimension. No significant pericardial effusion noted. IVC not well visualized ASSESSMENT AND PLAN Assessment: //Septic shock secondary to acute ascending cholangitis requiring ERCP and biliary stent placement on 08/28. //Undiagnosed sleep apnea/OHS overlap picture with morbid obesity. //BMI of 50.12. //HTN/HLD. 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 //Initial presentation with supratherapeutic INR with no evidence of bleeding. Plan: I personally interviewed/examined the patient; reviewed interval history, interpreted all available radiographic and laboratory data at the time of service. Patient currently saturating well on nasal cannula He needs outpatient sleep study Continue meropenem Physical/occupational therapy Await placement Uzair Kay MD Internal Medicine Resident PGY-3 09/06/2020, 11:48 AM Attending Physician Statement I have discussed the care of Kamran Harley, including pertinent history and exam findings, with the resident. I have seen and examined the patient and the tpiton elements of all parts of the encounter have been performed by me. I agree with the assessment, plan and orders as documented by the resident with additions . Treatment plan Discussed with nursing staff in detail , all questions answered . Please note that this chart was generated using voice recognition [employer] dictation software. Although every effort was made to ensure the accuracy of this automated barber instructor, some errors in barber instructor may have occurred. Pharmacy Note Warfarin Consult follow-up Recent Labs 09/06/20 0449 INR 1.0 Recent Labs 09/04/20 0725 09/05/20 0643 09/06/20 0449 HGB 11.7* 12.5* 12.3* HCT 38.9* 40.1* 40.6* PLT 346 308 416 Current warfarin drug-drug interactions: Meropenem, enoxaparin, Tylenol Date INR Dose 09/04 1.0 10 09/05 1.0 10 09/06/2020 1.0 15mg Notes: Current warfarin drug-drug interactions: Meropenem, enoxaparin, Tylenol Date INR Dose 09/04 1.0 10 09/05 1.0 10 09/06/2020 1.0 15mg Notes: Give warfarin 15mg today on 09/06/2020. Daily PT/INR while inpatient. Zayda Davis RP, CACP Clinical Pharmacist Medication Management 09/06/2020 8:09 AM PULMONARY & CRITICAL CARE MEDICINE PROGRESS NOTE Patient: Kamran Harley Admit date: 08/27/2020 Primary Care Physician: Jesus Chopra DO Consulting Physician: Harvey Dotson MD CODE Status: Full Code LOS: 9 SUBJECTIVE BRIEF HOSPITAL COURSE: The patient is a 70 y.o. male morbidly obese, history of paroxysmal A. fib, HTN/HLD, history of DVTs on Coumadin, presenting with generalized discomfort nausea and chills. Initial labs revealed a significant supratherapeutic INR of 12.[address] scan of the abdomen and pelvis showing evidence of acute cholecystitis with multiple CBD stones. Initially was tachycardic and hypotensive and transferred to ICU. 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 Subsequently underwent ERCP on the with stone and pus extraction with biliary stent placement. Concurrently on meropenem and transferred out of the ICU. History of undiagnosed likely sleep apnea/OHS overlap and was hypoxic yesterday with improved with Lasix and or nightly BiPAP. Currently on 3 L. INTERVAL HISTORY: 09/05/20 No acute issues reported Patient is currently saturating well on nasal cannula He is on meropenem Remains afebrile REVIEW OF SYSTEMS: Constitutional: Negative for activity change, appetite change, chills, diaphoresis and fatigue. HENT: Negative. Eyes: Negative. Respiratory: Negative for apnea, cough, choking, chest tightness and shortness of breath. Cardiovascular: Negative. Negative for chest pain and leg swelling. Gastrointestinal: Negative. Endocrine: Negative. Genitourinary: Negative. Negative for difficulty urinating, dysuria, enuresis and flank pain. Musculoskeletal: Negative for arthralgias, back pain and gait problem. Skin: Negative. Allergic/Immunologic: Negative. Neurological: Negative. OBJECTIVE VITAL SIGNS: LAST: BP 130/68 Pulse 97 Temp 97.5 F (36.4 C) (Temporal) Resp 23 Ht 6' 3 (1.905 m) Wt (!) 423 lb 1 oz (191.9 kg) SpO2 93% BMI 52.88 kg/m 8-24 HR RANGE: TEMP Temp Av.9 F (36.6 C) Min: 97.4 F (36.3 C) Max: 98.3 F (36.8 C) BP Systolic (24hrs), Av , Min:119 , Max:138 Diastolic (24hrs), Av, Min:54, Max:85 PULSE Pulse Av.4 Min: 56 Max: 97 RR Resp Av Min: 17 Max: 23 O2 SAT SpO2 Av.5 % Min: 93 % Max: 98 % OXYGEN DELIVERY O2 Flow Rate (L/min) Av L/min Min: 3 L/min Max: 3 L/min SYSTEMIC EXAMINATION: General appearance -comfortable, morbidly obese Mental status -awake and alert Eyes - pupils equal and reactive, sclera anicteric Mouth - mucous membranes moist, pharynx normal without lesions Neck - supple, no significant adenopathy, carotids upstroke normal bilaterally, no bruits Chest -bilateral decreased breath sound at bases. No crackles or wheezes appreciated. Heart - normal rate, regular rhythm, normal S1, S2, no murmurs, rubs, clicks or gallops Abdomen -right lower quadrant end ileostomy. Neurological - DTR's normal and symmetric, motor and sensory grossly normal bilaterally Extremities - peripheral pulses normal, no pedal edema, no clubbing or cyanosis Skin - normal coloration and turgor, no rashes, no suspicious skin lesions noted DATA REVIEW Medications: Scheduled Meds: warfarin 10 mg Oral Once insulin glargine 30 Units Subcutaneous BID warfarin (COUMADIN) daily dosing (placeholder) Other RX Placeholder insulin lispro 0-18 Units Subcutaneous TID WC insulin lispro 0-9 Units Subcutaneous Nightly enoxaparin 40 mg Subcutaneous BID miconazole Topical BID meropenem 1,000 mg Intravenous Q8H sodium chloride flush 5-40 mL Intravenous 2 times per day Continuous Infusions: sodium chloride dextrose INPUT/OUTPUT: In: - Out: 4700 [Urine:4250] Date 09/05/20 0000 - 09/05/202358 Shift 4363-3469 9450-8196 1178-3921 24 Hour Total INTAKE Shift Total(mL/kg) OUTPUT Urine(mL/kg/hr) 450(0.3) 450 Stool(mL/kg) 150(0.8) 150(0.8) Shift Total(mL/kg) 600(3.1) 600(3.1) Weight (kg) 191.9 191.9 191.9 191.9 LABS: ABGs: No results for input(s): POCPH, POCPCO2, POCPO2, POCHCO3, [id number] in the last 72 hours. CBC: Recent Labs 09/03/20 0636 09/04/20 0725 09/05/20 0643 WBC 5.0 4.7 5.0 HGB 12.9* 11.7* 12.5* HCT 42.7 38.9* 40.1* MCV 91.6 90.7 88.1 PLT 147 346 308 RBC 4.66 4.29 4.55 MCH 27.7 27.3 27.5 MCHC 30.2 30.1 31.2 RDW 15.6* 15.3* 15.3* CRP: No results for input(s): CRP in the last 72 hours. LDH: No results for input(s): LDH in the last 72 hours. BMP: Recent Labs 09/04/20 0725 NA 137 K 3.7 CL 98 CO2 29 BUN 15 CREATININE 0.44* GLUCOSE 290* Liver Function Test: Recent Labs 09/03/20 0636 09/04/20 0725 PROT 5.7* 5.6* LABALBU 2.4* 2.5* ALT 33 35 AST 41* 39 ALKPHOS 257* 234* BILITOT 2.04* 1.70* Coagulation Profile: Recent Labs 09/04/20 19409/05/20 0540 INR 1.0 1.0 PROTIME 10.4 11.1 D-Dimer: No results for input(s): DDIMER in the last 72 hours. Lactic Acid: No results for input(s): LACTA in the last 72 hours. Cardiac Enzymes: No results for input(s): CKTOTAL, CKMB, CKMBINDEX, TROPONINI in the last 72 hours. Invalid input(s): TROPONIN, HSTROP BNP/ProBNP: No results for input(s): BNP, PROBNP in the last 72 hours. Triglycerides: No results for input(s): TRIG in the last 72 hours. Microbiology: Urine Culture: No components found for: CURINE Blood Culture: No components found for: CBLOOD, CFUNGUSBL Sputum Culture: No components found for: CSPUTUM No results for input(s): SPECDESC, SPECIAL, CULTURE, STATUS, ORG, CDIFFTOXPCR, CAMPYLOBPCR, SALMONELLAPC, SHIGAPCR, SHIGELLAPCR, MPNEUG, MPNEUM, LACTOQL in the last 72 hours. No results for input(s): SPUTUM, SPECDESC, SPECIAL, CULTURE, STATUS, ORG, CDIFFTOXPCR, MPNEUM, MPNEUG in the last 72 hours. Invalid input(s): CURINE, CBLOOD, CFUNGUSBL Pathology: Radiology Reports: XR CHEST PORTABLE Final Result Pulmonary vascular congestion with interstitial pulmonary edema similar to prior study. XR CHEST PORTABLE Final Result Improved aeration of lung compared to prior study interval removal of endotracheal tube. Right-sided central venous catheter remains unchanged. Persistent chronic interstitial markings bilaterally with no evidence for effusions. US GALLBLADDER RUQ Final Result Markedly limited examination due to patient body habitus and overlying bowel gas. Evaluation for cholelithiasis or acute cholecystitis is limited on this study. As a was inflammatory changes seen about the gallbladder the recent CT, if there is clinical concern for acute cholecystitis, HIDA scan may be considered for further evaluation. Patient's known choledocholithiasis is not well appreciated sonographically. The common bile duct appears normal in caliber measuring 5 mm. Increased echogenicity of the liver parenchyma, which may reflect underlying hepatic steatosis or other chronic liver parenchymal disease. XR CHEST PORTABLE Final Result Supportive tubing projects in normal position. Vascular congestion. Mild bibasilar atelectasis or airspace disease, with improved aeration on the left in the interval. XR ABDOMEN FOR NG/OG/NE TUBE PLACEMENT Final Result Nasogastric tube projects in normal position. FLUORO FOR SURGICAL PROCEDURES Final Result XR CHEST PORTABLE Final Result Possible mild pulmonary vascular congestion CT HEAD WO CONTRAST Final Result No acute intracranial abnormality. CT CHEST PULMONARY EMBOLISM W CONTRAST Final Result CTA OF THE CHEST: 1. No pulmonary embolism. 2. Dilation of the main pulmonary artery may signify pulmonary arterial hypertension. 3. No evidence of pneumonia. CT OF THE ABDOMEN AND PELVIS: 1. Edema surrounding the gallbladder, likely indicating acute cholecystitis. While no cholelithiasis is evident by CT, multiple calculi are seen in the common bile duct (choledocholithiasis). 2. Status post colectomy with right lower quadrant ileostomy. 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 No bowel wall thickening or obstruction. 3. Status post left inguinal hernia repair, with evidence of a recurrent shallow fat-containing hernia. No evidence of fat strangulation. CT ABDOMEN PELVIS W IV CONTRAST Additional Contrast? None Final Result CTA OF THE CHEST: 1. No pulmonary embolism. 2. Dilation of the main pulmonary artery may signify pulmonary arterial hypertension. 3. No evidence of pneumonia. CT OF THE ABDOMEN AND PELVIS: 1. Edema surrounding the gallbladder, likely indicating acute cholecystitis. While no cholelithiasis is evident by CT, multiple calculi are seen in the common bile duct (choledocholithiasis). 2. Status post colectomy with right lower quadrant ileostomy. 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 No bowel wall thickening or obstruction. 3. Status post left inguinal hernia repair, with evidence of a recurrent shallow fat-containing hernia. No evidence of fat strangulation. Echocardiogram: Results for orders placed during the hospital encounter of 08/27/20 ECHO Complete 2D W Doppler W Color Summary Technically difficult study Normal LV size , mildly increased LV wall thickness. No obvious wall motion abnormality seen. Normal LV systolic function with LVEF 55%. Normal RV size and function. LA and RA appears normal in size. No obvious significant structural valvular abnormality noted. No significant valvular stenosis or regurgitation noted. Normal aortic root dimension. No significant pericardial effusion noted. IVC not well visualized ASSESSMENT AND PLAN Assessment: //Septic shock secondary to acute ascending cholangitis requiring ERCP and biliary stent placement on 08/28. //Undiagnosed sleep apnea/OHS overlap picture with morbid obesity. //BMI of 50.12. //HTN/HLD. 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 //Initial presentation with supratherapeutic INR with no evidence of bleeding. Plan: I personally interviewed/examined the patient; reviewed interval history, interpreted all available radiographic and laboratory data at the time of service. Patient currently saturating well on nasal cannula He needs outpatient sleep study Continue meropenem Physical/occupational therapy Await placement Lonnie Juárez MD Pulmonary and critical care medicine 09/05/2020, 1:50 PM Pharmacy Note Warfarin Consult follow-up Recent Labs 09/05/20 0540 INR 1.0 Recent Labs 09/03/20 0636 09/04/20 0725 09/05/20 0643 HGB 12.9* 11.7* 12.5* HCT 42.7 38.9* 40.1* PLT 147 346 308 Significant Drug-Drug Interactions: New warfarin drug-drug interactions: Meropenem, enoxaparin, Tylenol Discontinued drug-drug interactions: none Notes: Patient is currently on lovenox 40 mg twice daily. Will order another dose of 10 mg today and continue to monitor Thank you Shirlene Dey PharmD, [facility] Inpatient Clinical Pharmacist [phone] Daily PT/INR while inpatient. Images from the original note were not included. [facility] Office: [phone] Epifanio Bradley DO, Jesus Poe DO, Lobito Hope DO, Lobo Wallace DO, Ibrahima Green MD, Rupinder Gonzalez MD, Josesito Aquino MD, Harvey Dotson MD, Eduardo Kolb MD, Dori Ag MD, Jose R Izaguirre MD, Trina Kay MD, Andrew Amezquita DO, Yumiko Casanova MD, Brody Pizano DO, Nacho Espino MD, Gelacio Epps DO, Main Ascencio MD, Milton James MD, Roxanne Martin MD, Guilherme Duff MD, Jasmyn Howard, PET CAREGIVER, Zara Ferreira, PET CAREGIVER, Estephanie Renee, PET CAREGIVER, Leana Martinez, CHECKER LOADER, Carlos Abdul, PET CAREGIVER, Nuris Walter, PET CAREGIVER, Keely Tomas, PET CAREGIVER, Hemal Waite, PET CAREGIVER, Richard Burrows, PET CAREGIVER, Tye Castro PA-C, Rita Jacobo, KIRA, Jeannine Barakat, PET CAREGIVER, Lila Baxter, PET CAREGIVER, Buffy Mueller, PET CAREGIVER, Ingrid Jarrett PET CAREGIVER, Maty Nieves, PET CAREGIVER, Faiza Billings, PET CAREGIVER [facility] IN-PATIENT SERVICE [facility] Progress Note 09/05/2020 2:48 PM Name: Kamran Harley Acct: [id number] Room: 0419/0419-02 Day: 9 Admit Date: 08/27/2020 12:46 PM PCP: Jesus Chopra DO Code Status: Full Code Subjective: C/C: Fatigue and shortness of breath Interval History Status: Improved Patient seen and examined at bedside, continue to improve, No acute events overnight and no new complain very good diuresis Afebrile overnight. Vitals and labs reviewed. Patient with chronic Lees He is flat in bed Receiving wound and ostomy care by his nurse Await placement Labs and vitals in progress overnight reviewed with the nurse Brief History: Per critical care note Patient originally arrived to the hospital on 618 with chief complaints of fatigue, not feeling well, UTI symptoms and shortness of breath. Transferred to ICU on hospital day 1 as he became hypotensive. Found to have acute ascending cholangitis, choledocholithiasis complicated by E. coli bacteremia. Infectious disease was consulted originally was placed on vancomycin and Zosyn and then transitioned on 619 to meropenem with daily amikacin. GI and general surgery were consulted. Patient underwent an ERCP with stent placement and sphincterotomy on the . General surgery agrees with ERCP with stent placement, sphincterotomy no further percutaneous drainage recommended. Patient's vital signs improved, currently off all pressor support, tolerating 2 L nasal cannula, afebrile, leukocytosis improving. Patient is stable to be transferred to floor unit Review of Systems: Review of Systems Constitutional: Positive for activity change. Negative for chills, diaphoresis and fever. HENT: Negative for congestion. Eyes: Negative for visual disturbance. Respiratory: Negative for cough, chest tightness and wheezing. Cardiovascular: Negative for chest pain, palpitations and leg swelling. Gastrointestinal: Negative for abdominal pain, blood in stool, constipation, diarrhea, nausea and vomiting. Genitourinary: Negative for difficulty urinating. Neurological: Positive for weakness. Negative for dizziness, light-headedness, numbness and headaches. All other systems reviewed and are negative. Medications: Allergies: Allergies Allergen Reactions Oxytetracycline Penicillins Had a penicillin shot when he was 7 years old and had hives. Tolerated Zosyn 08/27 without problems Suspect reaction was to the shot and not to the penicillin Sulfa Antibiotics Had hives Current Meds: Scheduled Meds: warfarin 10 mg Oral Once insulin glargine 50 Units Subcutaneous BID insulin glargine 20 Units Subcutaneous Once warfarin (COUMADIN) daily dosing (placeholder) Other RX Placeholder insulin lispro 0-18 Units Subcutaneous TID WC insulin lispro 0-9 Units Subcutaneous Nightly enoxaparin 40 mg Subcutaneous BID miconazole Topical BID meropenem 1,000 mg Intravenous Q8H sodium chloride flush 5-40 mL Intravenous 2 times per day Continuous Infusions: sodium chloride dextrose PRN Meds: HYDROcodone 5 mg - acetaminophen, diphenhydrAMINE, guaiFENesin, LORazepam, sodium chloride, acetaminophen OR acetaminophen, magnesium sulfate, ondansetron OR ondansetron, polyethylene glycol, potassium chloride OR potassium alternative oral replacement OR potassium chloride, glucose, dextrose, glucagon (rDNA), dextrose, sodium chloride flush Data: Past Medical History: has a past medical history of Chronic anticoagulation: Coumadin, Coagulopathy (HCC), HLD (hyperlipidemia), HTN (hypertension), Hypomagnesemia, 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 Social History: reports that he has never smoked. He has never used smokeless tobacco. Family History: Family History Problem Relation Age of Onset Diabetes Mother Other Father Vitals: BP 130/68 Pulse 97 Temp 97.5 F (36.4 C) (Temporal) Resp 23 Ht 6' 3 (1.905 m) Wt (!) 423 lb 1 oz (191.9 kg) SpO2 93% BMI 52.88 kg/m Temp (24hrs), Av.9 F (36.6 C), Min:97.4 F (36.3 C), Max:98.3 F (36.8 C) Recent Labs 09/04/20 1518 09/04/20 2045 09/05/20 0731 09/05/20 1210 POCGLU 341* 322* 230* 364* I/O (24Hr): Intake/Output Summary (Last 24 hours) at 09/05/2020 1448 Last data filed at 09/05/2020 0637 Gross per 24 hour Intake Output 4700 ml Net -4700 ml Labs: Hematology: Recent Labs 09/03/20 0636 09/04/20 0725 09/04/20 1945 09/05/20 0540 09/05/20 0643 WBC 5.0 4.7 -- -- 5.0 RBC 4.66 4.29 -- -- 4.55 HGB 12.9* 11.7* -- -- 12.5* HCT 42.7 38.9* -- -- 40.1* MCV 91.6 90.7 -- -- 88.1 MCH 27.7 27.3 -- -- 27.5 MCHC 30.2 30.1 -- -- 31.2 RDW 15.6* 15.3* -- -- 15.3* PLT 147 346 -- -- 308 MPV 11.5 10.7 -- -- 11.6 INR -- -- 1.0 1.0 -- Chemistry: Recent Labs 09/03/20 0609/04/20 0709/05/20 0540 NA -- 137 -- K -- 3.7 -- CL -- 98 -- CO2 -- 29 -- GLUCOSE -- 290* -- BUN -- 15 -- CREATININE -- 0.44* -- MG 2.0 1.8 1.8 ANIONGAP -- 10 -- LABGLOM -- >60 -- GFRAA -- >60 -- CALCIUM -- 8.5* -- Recent Labs 09/03/20 0609/03/20 1230 09/03/20 1937 09/04/20 0725 09/04/20 0743 09/04/20 1118 09/04/20 1518 09/04/20 2045 09/05/20 0731 09/05/20 1210 PROT 5.7* -- -- 5.6* -- -- -- -- -- -- LABALBU 2.4* -- -- 2.5* -- -- -- -- -- -- AST 41* -- -- 39 -- -- -- -- -- -- ALT 33 -- -- 35 -- -- -- -- -- -- ALKPHOS 257* -- -- 234* -- -- -- -- -- -- BILITOT 2.04* -- -- 1.70* -- -- -- -- -- -- BILIDIR 1.01* -- -- 0.93* -- -- -- -- -- -- POCGLU -- < > < > -- 271* 352* 341* 322* 230* 364* < > = values in this interval not displayed. ABG: Lab Results Component Value Date POCPH 7.354 08/29/2020 POCPCO2 40.5 08/29/2020 POCPO2 146.3 08/29/2020 POCHCO3 22.6 08/29/2020 NBEA 3 08/29/2020 PBEA NOT REPORTED 08/29/2020 TRS4MMC NOT REPORTED 08/29/2020 WRSN6MVR 99 08/29/2020 FIO2 40.0 08/29/2020 Lab Results Component Value Date/Time SPECIAL NOT REPORTED 08/27/2020 05:16 PM Lab Results Component Value Date/Time CULTURE (A) 08/27/2020 05:16 PM KLEBSIELLA PNEUMONIAE >[id number] CFU/ML THIS ORGANISM IS AN EXTENDED-SPECTRUM BETA-LACTAMASE STAFF VETERINARIAN AND RESISTANCE TO THERAPY WITH PENICILLINS, CEPHALOSPORINS AND AZTREONAM IS EXPECTED. THESE ORGANISMS GENERALLY REMAIN SUSCEPTIBLE TO CARBAPENEMS. CONSIDER ID CONSULTATION. Radiology: CT HEAD WO CONTRAST Result Date: 08/28/2020 No acute intracranial abnormality. CT ABDOMEN PELVIS W IV CONTRAST Additional Contrast? None Result Date: 08/27/2020 CTA OF THE CHEST: 1. No pulmonary embolism. 2. Dilation of the main pulmonary artery may signify pulmonary arterial hypertension. 3. No evidence of pneumonia. CT OF THE ABDOMEN AND PELVIS: 1. Edema surrounding the gallbladder, likely indicating acute cholecystitis. While no cholelithiasis is evident by CT, multiple calculi are seen in the common bile duct (choledocholithiasis). 2. Status post colectomy with right lower quadrant ileostomy. 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 No bowel wall thickening or obstruction. 3. Status post left inguinal hernia repair, with evidence of a recurrent shallow fat-containing hernia. No evidence of fat strangulation. US GALLBLADDER RUQ Result Date: 08/29/2020 Markedly limited examination due to patient body habitus and overlying bowel gas. Evaluation for cholelithiasis or acute cholecystitis is limited on this study. As a was inflammatory changes seen about the gallbladder the recent CT, if there is clinical concern for acute cholecystitis, HIDA scan may be considered for further evaluation. Patient's known choledocholithiasis is not well appreciated sonographically. The common bile duct appears normal in caliber measuring 5 mm. Increased echogenicity of the liver parenchyma, which may reflect underlying hepatic steatosis or other chronic liver parenchymal disease. XR CHEST PORTABLE Result Date: 08/30/2020 Improved aeration of lung compared to prior study interval removal of endotracheal tube. Right-sided central venous catheter remains unchanged. Persistent chronic interstitial markings bilaterally with no evidence for effusions. XR CHEST PORTABLE Result Date: 08/29/2020 Supportive tubing projects in normal position. Vascular congestion. Mild bibasilar atelectasis or airspace disease, with improved aeration on the left in the interval. XR CHEST PORTABLE Result Date: 08/28/2020 Possible mild pulmonary vascular congestion CT CHEST PULMONARY EMBOLISM W CONTRAST Result Date: 08/27/2020 CTA OF THE CHEST: 1. No pulmonary embolism. 2. Dilation of the main pulmonary artery may signify pulmonary arterial hypertension. 3. No evidence of pneumonia. CT OF THE ABDOMEN AND PELVIS: 1. Edema surrounding the gallbladder, likely indicating acute cholecystitis. While no cholelithiasis is evident by CT, multiple calculi are seen in the common bile duct (choledocholithiasis). 2. Status post colectomy with right lower quadrant ileostomy. 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 No bowel wall thickening or obstruction. 3. Status post left inguinal hernia repair, with evidence of a recurrent shallow fat-containing hernia. No evidence of fat strangulation. XR ABDOMEN FOR NG/OG/NE TUBE PLACEMENT Result Date: 08/29/2020 Nasogastric tube projects in normal position. Physical Examination: Physical Exam Vitals and nursing note reviewed. Constitutional: General: He is not in acute distress. Appearance: He is morbidly obese. He is ill-appearing. HENT: Head: Normocephalic and atraumatic. Eyes: Conjunctiva/sclera: Conjunctivae normal. Pupils: Pupils are equal, round, and reactive to light. Cardiovascular: Rate and Rhythm: Normal rate and regular rhythm. Heart sounds: No murmur heard. Pulmonary: Effort: Tachypnea and respiratory distress present. No accessory muscle usage. Breath sounds: No stridor. Decreased breath sounds and rales present. No wheezing or rhonchi. Abdominal: General: Bowel sounds are normal. There is no distension. Palpations: Abdomen is soft. Abdomen is not rigid. Tenderness: There is no abdominal tenderness. There is no guarding. Comments: Ileostomy noted Musculoskeletal: General: No tenderness. Skin: General: Skin is warm and dry. Findings: No erythema, lesion or rash. Neurological: Mental Status: He is alert and oriented to person, place, and time. Cranial Nerves: No cranial nerve deficit. Motor: No seizure activity. Psychiatric: Speech: Speech normal. Behavior: Behavior normal. Behavior is cooperative. Assessment: Hospital Problems Last Modified POA * (Principal) Gram negative septicemia (HCC) 08/30/2020 Yes Ascending cholangitis 09/05/[address] ([facility]) 09/05/2020 Yes Transaminasemia 09/05/2020 Yes Acute respiratory failure with hypoxia ([facility]) 09/05/2020 Clinically Undetermined Elevated liver enzymes 08/27/2020 Yes Diabetes mellitus (HCC) 08/27/2020 Yes Paroxysmal A-fib (HCC) 08/27/2020 Yes Panniculitis 08/27/2020 Yes Supratherapeutic INR 08/27/2020 Yes Hypomagnesemia 08/27/2020 Yes Class 3 severe obesity due to excess calories with serious comorbidity and body mass index (BMI) of 50.0 to 59.9 in adult (HCC) 08/29/2020 Yes HTN (hypertension) 08/27/2020 Yes Coagulopathy (HCC) 08/27/2020 Yes Chronic anticoagulation: Coumadin 08/27/2020 Yes Sepsis (HCC) 08/27/2020 Yes History of DVT (deep vein thrombosis) 08/27/2020 Yes Acute encephalopathy 08/28/2020 Yes Acute cholangitis 08/30/2020 Yes Complicated UTI (urinary tract infection) 08/28/2020 Yes Morbid obesity (HCC) 08/30/2020 Yes Plan: Principal Problem: Gram negative septicemia (HCC) Active Problems: Ascending cholangitis Ileostomy in place (HCC) Transaminasemia Acute respiratory failure with hypoxia (HCC) Elevated liver enzymes Diabetes mellitus (HCC) Paroxysmal A-fib (HCC) Panniculitis Supratherapeutic INR Hypomagnesemia Class 3 severe obesity due to excess calories with serious comorbidity and body mass index (BMI) of 50.0 to 59.9 in adult (HCC) HTN (hypertension) Coagulopathy (HCC) Chronic anticoagulation: Coumadin Sepsis (HCC) History of DVT (deep vein thrombosis) Acute encephalopathy Acute cholangitis Complicated UTI (urinary tract infection) Morbid obesity (HCC) Resolved Problems: * No resolved hospital problems. * - S/P ERCP 08/28 with sphincterotomy and multiple stones removal -Resumed home lasix on discharge, needed couple of IV doses. -BiPAP at night time -Continue supplemental oxygen - meropenem course of 10 days to be finished tomorrow -Per GI warfarin was held for 7 days after ERCP and sphincterotomy - Warfarin restarted 09/04, PTD. -Continue blood pressure and glycemic control - Resume home insulin, atient is also on Ozempic at home -Continue other chronic meds for his chronic conditions.. -Appreciate GI and ID recommendations -Check electrolytes and replace as needed. -DVT and GI prophylaxis -Discussed with the patient -Midline can be removed on DC as there is no need for any more Abx per ID -PT/OT -DC planning - Needs sleep study as OP , OHS Med rec done Scripts added ENID signed 30+ minutes spent Can be discharged once bed available, hopefully in am Harvey Dotson MD 09/05/2020 2:48 PM Images from the original note were not included. [facility] Progress Note Kamran Harley Date: 09/05/2020 LOS: 9 Reason for F/U : E. coli/ESBL Klebsiella sepsis Impression : 1. Polymicrobial sepsis with E. coli and ESBL Klebsiella secondary to cholangitis/pyelonephritis 2. ESBL Klebsiella urinary tract infection/pyelonephritis 3. Cholangitis with obstructive stone 4. Status post ERCP 08/28/2020, sphincterectomy with multiple stone removal 5. Acute kidney injury 6. Morbid obesity Recommendations: Patient continues on meropenem Plan per Dr. 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 He feels he has had some dysuria and is concerned he might be having a UTI. Came to the ER he was having fever, blood cultures taken and he was sent to the floor Today he is getting short of breath lethargic, tachycardic, hypotensive. He was started on vancomycin and Zosyn, since blood cultures are showing gram-negative rods Urine culture remains pending gram-negative rods CT of the abdomen showed normal kidneys, gallbladder showed multiple stones with some obstruction, suspect there is for ascending cholangitis, there is edema around the gallbladder as well GI contemplating ERCP once more stable Patient being transferred to the ICU 08/28: Discussed with GI, they will defer ERCP till he stabilizes, agree with cholecystostomy in the meantime to decompress Patient sleepy arousable very appropriate, discussed with him his allergy to penicillin as stated in the impression section. He tolerated Zosyn so far without any hives He does have a tenderness over the right upper quadrant Multiple over both knees Lees with hemal urine but no cloudiness Presents with septic shock and acute encephalopathy, progressing during his admission, gram-negative septicemia seems to be related to a complicated UTI but also to an obstructive cholangitis Patient has progressed into severe sepsis during his admission and hence he is at risk to develop multiorgan failure He did have a history of UTIs, multiple antibiotic intake in the past and hence he is at risk for MDRO gram-negative Current evaluation:09/05/2020 BP 123/69 Pulse 84 Temp 97.4 F (36.3 C) (Temporal) Resp 17 Ht 6' 3 (1.905 m) Wt (!) 423 lb 1 oz (191.9 kg) SpO2 98% BMI 52.88 kg/m Temperature Range: Temp: 97.4 F (36.3 C) Temp Av F (36.7 C) Min: 97.4 F (36.3 C) Max: 98.3 F (36.8 C) Patient was seen and evaluated with RN at bedside Denies abdominal pain or back pain No nausea or diarrhea No elevated temperatures Review of Systems Constitutional: Negative. HENT: Negative. Respiratory: Negative. Cardiovascular: Negative. Gastrointestinal: Negative. Genitourinary: Negative. Musculoskeletal: Negative. Skin: Negative. Neurological: Negative. Psychiatric/Behavioral: Negative. Physical Examination : Physical Exam Constitutional: General: He is not in acute distress. Appearance: Normal appearance. He is obese. HENT: Head: Normocephalic and atraumatic. Pulmonary: Effort: Pulmonary effort is normal. No respiratory distress. Abdominal: General: Abdomen is flat. Bowel sounds are normal. There is no distension. Palpations: Abdomen is soft. Skin: General: Skin is warm and dry. Coloration: Skin is not jaundiced. Neurological: General: No focal deficit present. Mental Status: He is alert and oriented to person, place, and time. Mental status is at baseline. Psychiatric: Mood and Affect: Mood normal. Behavior: Behavior normal. Thought Content: Thought content normal. Laboratory data: I have independently reviewed the followinglabs: CBC with Differential: Recent Labs 09/04/20 0725 09/05/20 0643 WBC 4.7 5.0 HGB 11.7* 12.5* HCT 38.9* 40.1* PLT 346 308 BMP: Recent Labs 09/04/20 0725 09/05/20 0540 NA 137 -- K 3.7 -- CL 98 -- CO2 29 -- BUN 15 -- CREATININE 0.44* -- MG 1.8 1.8 Hepatic Function Panel: Recent Labs 09/03/20 0636 09/04/20 0725 PROT 5.7* 5.6* LABALBU 2.4* 2.5* BILIDIR 1.01* 0.93* IBILI 1.03* 0.77 BILITOT 2.04* 1.70* ALKPHOS 257* 234* ALT 33 35 AST 41* 39 Lab Results Component Value Date PROCAL 0.57 09/04/2020 PROCAL 1.53 09/02/2020 PROCAL 5.75 08/31/2020 No results found for: CRP No results found for: SEDRATE No results found for: DDIMER No results found for: FERRITIN No results found for: LDH No results found for: FIBRINOGEN Results in Past 30 Days Result Component Current Result Ref Range Previous Result Ref Range SARS-CoV-2, Rapid Not Detected (08/28/2020) Not Detected Not in Time Range Lab Results Component Value Date COVID19 Not Detected 08/28/2020 No results for input(s): [facility] in the last 72 hours. Imaging Studies: No new imaging Cultures: 08/29/2020 8:21 AM - Dimitris, [place] Incoming Lab Results From Cryo[facility] Specimen Information: Urine, clean catch Component Collected Lab Specimen Description 08/27/2020 5:16 PM [employer] .CLEAN CATCH URINE Special Requests 08/27/2020 5:16 PM [employer] NOT REPORTED Culture Abnormal 08/27/2020 5:16 PM [employer] KLEBSIELLA PNEUMONIAE >[id number] CFU/ML THIS ORGANISM IS AN EXTENDED-SPECTRUM BETA-LACTAMASE STAFF VETERINARIAN AND RESISTANCE TO THERAPY WITH PENICILLINS, CEPHALOSPORINS AND AZTREONAM IS EXPECTED. THESE ORGANISMS GENERALLY REMAIN SUSCEPTIBLE TO CARBAPENEMS. CONSIDER ID CONSULTATION. Testing Performed By Lab - Abbreviation Name Director Address Valid Date Range [email or web address] Nhan Mast MD [address] [facility] [id number] 11/08/16 0801-Present Susceptibility Klebsiella pneumoniae (1) Antibiotic Interpretation JASON Status amikacin Final NOT REPORTED ampicillin Resistant Final >=32 RESISTANT ampicillin-sulbactam Final NOT REPORTED aztreonam Resistant Final >=64 RESISTANT ceFAZolin Resistant Final >=64 RESISTANT ceFAZolin Resistant Cefazolin sensitivity results can be used to predict the effectiveness of oral cephalosporins (eg. Cephalexin) in uncomplicated Urinary Tract Infections due to E. coli, K. pneumoniae, and P. mirabilis Final cefepime Resistant Final >=64 RESISTANT cefTRIAXone Resistant Final >=64 RESISTANT ciprofloxacin Intermediate Final 2 INTERMEDIATE ertapenem Final NOT REPORTED Confirmatory Extended Spectrum Beta-Lactamase Positive POSITIVE Final gentamicin Sensitive Final <=1 SUSCEPTIBLE meropenem Sensitive Final <=0.25 SUSCEPTIBLE nitrofurantoin Intermediate Final 64 INTERMEDIATE tigecycline Final NOT REPORTED tobramycin Intermediate Final 8 INTERMEDIATE trimethoprim-sulfamethoxazole Resistant Final >=320 RESISTANT piperacillin-tazobactam Resistant Final 64 RESISTANT Lab and Collection Culture, Urine - 08/27/2020 Result History Culture, Urine on 08/29/2020 08/31/2020 10:25 AM - DimitrisChaya wagner Incoming Lab Results From [facility] Specimen Information: Blood Component Collected Lab Specimen Description 08/27/2020 2:20 PM [employer] .BLOOD Special Requests 08/27/2020 2:20 PM [employer] RT FOREARM 6 ML Culture Abnormal 08/27/2020 2:20 PM [employer] POSITIVE Blood Culture Results called to and read back by: REGINO Mtz 08/28/20 0315 Culture 08/27/2020 2:20 PM [employer] DIRECT GRAM STAIN FROM BOTTLE: GRAM NEGATIVE RODS Culture Abnormal 08/27/2020 2:20 PM [employer] ESCHERICHIA COLI Culture Abnormal 08/27/2020 2:20 PM [employer] KLEBSIELLA PNEUMONIAE THIS ORGANISM IS AN EXTENDED-SPECTRUM BETA-LACTAMASE STAFF VETERINARIAN AND RESISTANCE TO THERAPY WITH PENICILLINS, CEPHALOSPORINS AND AZTREONAM IS EXPECTED. THESE ORGANISMS GENERALLY REMAIN SUSCEPTIBLE TO CARBAPENEMS. CONSIDER ID CONSULTATION. Testing Performed By Lab - Abbreviation Name Director Address Valid Date Range [facility] [place] [facility] Nhan Mast MD [address] [facility] [address] 11/08/16 0801-Present Susceptibility Escherichia coli (3) Antibiotic Interpretation JASON Status amikacin Final NOT REPORTED ampicillin Resistant Final >=32 RESISTANT ampicillin-sulbactam Final NOT REPORTED aztreonam Sensitive Final <=1 SUSCEPTIBLE ceFAZolin Sensitive Final <=4 SUSCEPTIBLE cefepime Final NOT REPORTED cefTRIAXone Sensitive Final <=1 SUSCEPTIBLE ciprofloxacin Sensitive Final 1 SUSCEPTIBLE ertapenem Final NOT REPORTED Confirmatory Extended Spectrum Beta-Lactamase Negative NEGATIVE Final gentamicin Sensitive Final <=1 SUSCEPTIBLE meropenem Final NOT REPORTED nitrofurantoin Final NOT REPORTED tigecycline Final NOT REPORTED tobramycin Sensitive Final <=1 SUSCEPTIBLE trimethoprim-sulfamethoxazole Sensitive Final <=20 SUSCEPTIBLE piperacillin-tazobactam Sensitive Final <=4 SUSCEPTIBLE Klebsiella pneumoniae (4) Antibiotic Interpretation JASON Status amikacin Final NOT REPORTED ampicillin Resistant Final >=32 RESISTANT ampicillin-sulbactam Final NOT REPORTED aztreonam Resistant Final 32 RESISTANT ceFAZolin Resistant Final >=64 RESISTANT cefepime Resistant Final 2 RESISTANT cefTRIAXone Resistant Final >=64 RESISTANT ciprofloxacin Resistant Final >=4 RESISTANT ertapenem Final NOT REPORTED Confirmatory Extended Spectrum Beta-Lactamase Positive POSITIVE Final gentamicin Sensitive Final <=1 SUSCEPTIBLE meropenem Sensitive Final <=0.25 SUSCEPTIBLE nitrofurantoin Final NOT REPORTED tobramycin Intermediate Final 8 INTERMEDIATE trimethoprim-sulfamethoxazole Resistant Final >=320 RESISTANT piperacillin-tazobactam Resistant Final 32 RESISTANT Condensed View Lab and Collection Culture, Blood 1 - 08/27/2020 Result History Culture, Blood 1 on 08/31/2020 Result Information Flag: AbnormalAbnormal Status: Final result (Collected: 08/27/2020 14:20) Result Information Flag: AbnormalAbnormal Status: Final result (Collected: 08/27/2020 17:16) Provider Status: Ordered Routing History Priority Sent On From To Message Type 08/28/2020 7:42 AM Dimitris, Chaya Incoming Lab Results From [facility] Culture, Blood 2 [[id number]] Collected: 08/27/20 1505 Order Status: Completed Specimen: Blood Updated: 09/04/20 2206 Specimen Description .BLOOD Special Requests R H 10 ML Culture NO GROWTH 5 DAYS Culture, Blood 1 [[id number]] Collected: 08/27/20 1642 Order Status: Completed Specimen: Blood Updated: 09/02/20 0010 Specimen Description .BLOOD Special Requests L HAND TOP 2 ML Culture NO GROWTH 6 DAYS Culture, Blood 1 [[id number]] (Abnormal) Collected: 08/27/20 1431 Order Status: Completed Specimen: Blood Updated: 09/01/20 0814 Specimen Description .BLOOD Special Requests LT HAND 7.5ML Culture POSITIVE Blood Culture Results called to and read back by: REGINO Mtz 08/28/20 0315Abnormal DIRECT GRAM STAIN FROM BOTTLE: GRAM NEGATIVE RODS Escherichia coli Detected: Methodology- Polymerase Chain Reaction (PCR)Abnormal ESCHERICHIA COLIAbnormal Culture, Blood 1 [[id number]] (Abnormal) Collected: 08/27/20 1420 Order Status: Completed Specimen: Blood Updated: 08/31/20 1025 Specimen Description .BLOOD Special Requests RT FOREARM 6 ML Culture POSITIVE Blood Culture Results called to and read back by: REGINO Mtz 08/28/20 0315Abnormal DIRECT GRAM STAIN FROM BOTTLE: GRAM NEGATIVE RODS ESCHERICHIA COLIAbnormal KLEBSIELLA PNEUMONIAE THIS ORGANISM IS AN EXTENDED-SPECTRUM BETA-LACTAMASE STAFF VETERINARIAN AND RESISTANCE TO THERAPY WITH PENICILLINS, CEPHALOSPORINS AND AZTREONAM IS EXPECTED. THESE ORGANISMS GENERALLY REMAIN SUSCEPTIBLE TO CARBAPENEMS. CONSIDER ID CONSULTATION.Abnormal MRSA DNA Probe, Nasal [[id number]] (Abnormal) Collected: 08/28/20 1447 Order Status: Completed Specimen: Nasal Updated: 08/29/20 1321 Specimen Description .NASAL SWAB MRSA, DNA, Nasal POSITIVE: MRSA DNA detected by nucleic acid amplification.Abnormal Comment: Results should be used as an adjunct to nosocomial control efforts to identify patients needing enhanced precautions. The test is not intended to identify patients with staphylococcal infections. Results should not be used to guide or monitor treatment for MRSA infections. Culture, Urine [[id number]] (Abnormal) Collected: 08/27/20 1716 Order Status: Completed Specimen: Urine, clean catch Updated: 08/29/20 0821 Specimen Description .CLEAN CATCH URINE Special Requests NOT REPORTED Culture KLEBSIELLA PNEUMONIAE >[id number] CFU/ML THIS ORGANISM IS AN EXTENDED-SPECTRUM BETA-LACTAMASE STAFF VETERINARIAN AND RESISTANCE TO THERAPY WITH PENICILLINS, CEPHALOSPORINS AND AZTREONAM IS EXPECTED. THESE ORGANISMS GENERALLY REMAIN SUSCEPTIBLE TO CARBAPENEMS. CONSIDER ID CONSULTATION.Abnormal Medications: insulin glargine 30 Units Subcutaneous BID warfarin (COUMADIN) daily dosing (placeholder) Other RX Placeholder insulin lispro 0-18 Units Subcutaneous TID WC insulin lispro 0-9 Units Subcutaneous Nightly enoxaparin 40 mg Subcutaneous BID miconazole Topical BID meropenem 1,000 mg Intravenous Q8H sodium chloride flush 5-40 mL Intravenous 2 times per day [facility] FEMI ROSENTHAL CNP [employer] messaging OFFICE: Thank you for allowing us to participate in the care of this patient. Please call with questions. This note iscreated with the assistance of a speech recognition program. While intending to generate a document that actually reflects the content of the visit, the document can still have some errors including those of syntax andsound a like substitutions which may escape proof reading. In such instances, actual meaning can be extrapolated by contextual diversion. Pharmacy Note Warfarin Consult Kamran Harley is a 70 y.o. male for whom pharmacy has been consulted to manage warfarin therapy. Consulting Physician: HARVEY DOTSON Reason for Admission: cholecystitis Warfarin dose prior to admission: 5 mg Sunday and 10 mg all other days Warfarin indication: atrial fibrillation Target INR range: 2-3 Past Medical History: Diagnosis Date Chronic anticoagulation: Coumadin Coagulopathy (HCC) HLD (hyperlipidemia) HTN (hypertension) Hypomagnesemia 08/27/[address] (HCC) Morbid obesity (HCC) Marni syndrome Paroxysmal atrial fibrillation (HCC) Type 2 diabetes mellitus (HCC) No results for input(s): INR in the last 72 hours. Recent Labs 09/02/20 0333 09/03/20 0636 09/04/20 0725 HGB 11.4* 12.9* 11.7* HCT 38.9* 42.7 38.9* PLT 279 147 346 Current warfarin drug-drug interactions: meropenem Patient did receive 10 mg IVPB vitamin K and 1000 units kcentra on 08/28. Date INR Dose 09/04/2020 1.0 (on 08/29) no doses since 10 mg Daily PT/INR while inpatient. Thank you for the consult. Will continue to follow. Kassandra Wasserman, Pharm.D. PULMONARY & CRITICAL CARE MEDICINE PROGRESS NOTE Patient: Kamran Harley Admit date: 08/27/2020 Primary Care Physician: Jesus Chopra DO Consulting Physician: Harvey Dotson MD CODE Status: Full Code LOS: 8 SUBJECTIVE BRIEF HOSPITAL COURSE: The patient is a 70 y.o. male morbidly obese, history of paroxysmal A. fib, HTN/HLD, history of DVTs on Coumadin, presenting with generalized discomfort nausea and chills. Initial labs revealed a significant supratherapeutic INR of 12.[address] scan of the abdomen and pelvis showing evidence of acute cholecystitis with multiple CBD stones. Initially was tachycardic and hypotensive and transferred to ICU. 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 Subsequently underwent ERCP on the with stone and pus extraction with biliary stent placement. Concurrently on meropenem and transferred out of the ICU. History of undiagnosed likely sleep apnea/OHS overlap and was hypoxic yesterday with improved with Lasix and or nightly BiPAP. Currently on 3 L. INTERVAL HISTORY: 09/04/20 No acute issues. Currently on 2 L of nasal cannula oxygen. Awaiting placement. Continue BiPAP overnight. REVIEW OF SYSTEMS: Constitutional: Negative for activity change, appetite change, chills, diaphoresis and fatigue. HENT: Negative. Eyes: Negative. Respiratory: Negative for apnea, cough, choking, chest tightness and shortness of breath. Cardiovascular: Negative. Negative for chest pain and leg swelling. Gastrointestinal: Negative. Endocrine: Negative. Genitourinary: Negative. Negative for difficulty urinating, dysuria, enuresis and flank pain. Musculoskeletal: Negative for arthralgias, back pain and gait problem. Skin: Negative. Allergic/Immunologic: Negative. Neurological: Negative. OBJECTIVE VENTILATOR SETTINGS: Vent Information $Ventilation: Off Vent Skin Assessment: Clean, dry, & intact Equipment ID: [id number] Equipment Changed: HME Vent Type: Servo i Vent Mode: CPAP Vt Ordered: 580 mL Rate Set: 20 bmp Pressure Support: 6 cmH20 FiO2 : 40 % SpO2: 100 % SpO2/FiO2 ratio: 250 Sensitivity: 3 PEEP/CPAP: 5 I Time/ I Time %: 0.9 s Humidification Source: HME Mask Type: Full face mask Mask Size: Large PaO2/FiO2 RATIO: No results for input(s): POCPO2 in the last 72 hours. FiO2 : 40 % VITAL SIGNS: LAST: BP 131/61 Pulse 100 Temp 97.5 F (36.4 C) (Oral) Resp (!) 31 Ht 6' 3 (1.905 m) Wt (!) 423 lb 1 oz (191.9 kg) SpO2 100% BMI 52.88 kg/m 8-24 HR RANGE: TEMP Temp Av.8 F (36.6 C) Min: 97.5 F (36.4 C) Max: 98 F (36.7 C) BP Systolic (24hrs), Av , Min:101 , Max:167 Diastolic (24hrs), Av, Min:46, Max:80 PULSE Pulse Av.3 Min: 66 Max: 100 RR Resp Av Min: 27 Max: 31 O2 SAT SpO2 Av % Min: 98 % Max: 100 % OXYGEN DELIVERY O2 Flow Rate (L/min) Av L/min Min: 2 L/min Max: 2 L/min SYSTEMIC EXAMINATION: General appearance -alert and oriented. Mental status -as above. Eyes - pupils equal and reactive, sclera anicteric Mouth - mucous membranes moist, pharynx normal without lesions Neck - supple, no significant adenopathy, carotids upstroke normal bilaterally, no bruits Chest -bilateral decreased breath sound at bases. No crackles or wheezes appreciated. Heart - normal rate, regular rhythm, normal S1, S2, no murmurs, rubs, clicks or gallops Abdomen -right lower quadrant end ileostomy. Neurological - DTR's normal and symmetric, motor and sensory grossly normal bilaterally Extremities - peripheral pulses normal, no pedal edema, no clubbing or cyanosis Skin - normal coloration and turgor, no rashes, no suspicious skin lesions noted DATA REVIEW Medications: Scheduled Meds: insulin glargine 30 Units Subcutaneous BID insulin lispro 0-18 Units Subcutaneous TID insulin lispro 0-9 Units Subcutaneous Nightly enoxaparin 40 mg Subcutaneous BID miconazole Topical BID meropenem 1,000 mg Intravenous Q8H sodium chloride flush 5-40 mL Intravenous 2 times per day Continuous Infusions: sodium chloride dextrose INPUT/OUTPUT: In: - Out: 1900 [Urine:1300] Date 09/04/20 0000 - 09/04/20 235 Shift 5875-3120 1271-3425 9881-9287 24 Hour Total INTAKE Shift Total(mL/kg) OUTPUT Urine(mL/kg/hr) 600(0.4) 600 Stool(mL/kg) 200(1) 150(0.8) 350(1.8) Shift Total(mL/kg) 800(4.2) 150(0.8) 950(5) Weight (kg) 191.9 191.9 191.9 191.9 LABS: ABGs: No results for input(s): POCPH, POCPCO2, POCPO2, POCHCO3, [id number] in the last 72 hours. CBC: Recent Labs 09/01/20 2248 09/02/20 0333 09/03/20 0636 09/04/20 0725 WBC 6.3 4.9 5.0 4.7 HGB 12.3* 11.4* 12.9* 11.7* HCT 39.2* 38.9* 42.7 38.9* MCV 88.7 94.6 91.6 90.7 PLT 215 279 147 346 RBC 4.42 4.11* 4.66 4.29 MCH 27.8 27.7 27.7 27.3 MCHC 31.4 29.3 30.2 30.1 RDW 16.2* 16.2* 15.6* 15.3* CRP: No results for input(s): CRP in the last 72 hours. LDH: No results for input(s): LDH in the last 72 hours. BMP: Recent Labs 09/04/20 0725 NA 137 K 3.7 CL 98 CO2 29 BUN 15 CREATININE 0.44* GLUCOSE 290* Liver Function Test: Recent Labs 09/02/20 0333 09/03/20 0636 09/04/20 0725 PROT 5.4* 5.7* 5.6* LABALBU 2.2* 2.4* 2.5* ALT 29 33 35 AST 33 41* 39 ALKPHOS 254* 257* 234* BILITOT 1.96* 2.04* 1.70* Coagulation Profile: No results for input(s): INR, PROTIME, APTT in the last 72 hours. D-Dimer: No results for input(s): DDIMER in the last 72 hours. Lactic Acid: No results for input(s): LACTA in the last 72 hours. Cardiac Enzymes: No results for input(s): CKTOTAL, CKMB, CKMBINDEX, TROPONINI in the last 72 hours. Invalid input(s): TROPONIN, HSTROP BNP/ProBNP: No results for input(s): BNP, PROBNP in the last 72 hours. Triglycerides: No results for input(s): TRIG in the last 72 hours. Microbiology: Urine Culture: No components found for: CURINE Blood Culture: No components found for: CBLOOD, CFUNGUSBL Sputum Culture: No components found for: CSPUTUM No results for input(s): SPECDESC, SPECIAL, CULTURE, STATUS, ORG, CDIFFTOXPCR, CAMPYLOBPCR, SALMONELLAPC, SHIGAPCR, SHIGELLAPCR, MPNEUG, MPNEUM, LACTOQL in the last 72 hours. No results for input(s): SPUTUM, SPECDESC, SPECIAL, CULTURE, STATUS, ORG, CDIFFTOXPCR, MPNEUM, MPNEUG in the last 72 hours. Invalid input(s): CURINE, CBLOOD, CFUNGUSBL Pathology: Radiology Reports: XR CHEST PORTABLE Final Result Pulmonary vascular congestion with interstitial pulmonary edema similar to prior study. XR CHEST PORTABLE Final Result Improved aeration of lung compared to prior study interval removal of endotracheal tube. Right-sided central venous catheter remains unchanged. Persistent chronic interstitial markings bilaterally with no evidence for effusions. US GALLBLADDER RUQ Final Result Markedly limited examination due to patient body habitus and overlying bowel gas. Evaluation for cholelithiasis or acute cholecystitis is limited on this study. As a was inflammatory changes seen about the gallbladder the recent CT, if there is clinical concern for acute cholecystitis, HIDA scan may be considered for further evaluation. Patient's known choledocholithiasis is not well appreciated sonographically. The common bile duct appears normal in caliber measuring 5 mm. Increased echogenicity of the liver parenchyma, which may reflect underlying hepatic steatosis or other chronic liver parenchymal disease. XR CHEST PORTABLE Final Result Supportive tubing projects in normal position. Vascular congestion. Mild bibasilar atelectasis or airspace disease, with improved aeration on the left in the interval. XR ABDOMEN FOR NG/OG/NE TUBE PLACEMENT Final Result Nasogastric tube projects in normal position. FLUORO FOR SURGICAL PROCEDURES Final Result XR CHEST PORTABLE Final Result Possible mild pulmonary vascular congestion CT HEAD WO CONTRAST Final Result No acute intracranial abnormality. CT CHEST PULMONARY EMBOLISM W CONTRAST Final Result CTA OF THE CHEST: 1. No pulmonary embolism. 2. Dilation of the main pulmonary artery may signify pulmonary arterial hypertension. 3. No evidence of pneumonia. CT OF THE ABDOMEN AND PELVIS: 1. Edema surrounding the gallbladder, likely indicating acute cholecystitis. While no cholelithiasis is evident by CT, multiple calculi are seen in the common bile duct (choledocholithiasis). 2. Status post colectomy with right lower quadrant ileostomy. 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 No bowel wall thickening or obstruction. 3. Status post left inguinal hernia repair, with evidence of a recurrent shallow fat-containing hernia. No evidence of fat strangulation. CT ABDOMEN PELVIS W IV CONTRAST Additional Contrast? None Final Result CTA OF THE CHEST: 1. No pulmonary embolism. 2. Dilation of the main pulmonary artery may signify pulmonary arterial hypertension. 3. No evidence of pneumonia. CT OF THE ABDOMEN AND PELVIS: 1. Edema surrounding the gallbladder, likely indicating acute cholecystitis. While no cholelithiasis is evident by CT, multiple calculi are seen in the common bile duct (choledocholithiasis). 2. Status post colectomy with right lower quadrant ileostomy. 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 No bowel wall thickening or obstruction. 3. Status post left inguinal hernia repair, with evidence of a recurrent shallow fat-containing hernia. No evidence of fat strangulation. Echocardiogram: Results for orders placed during the hospital encounter of 08/27/20 ECHO Complete 2D W Doppler W Color Narrative Transthoracic Echocardiography Report (TTE) Patient Name HARLEY Date of Study 08/30/2020 KAMRAN Pike Date of 1950 Gender Male Age 70 year(s) Race Room Number 0117 Height: 75 inch, 190.5 cm Corporate ID [id number] Weight: 396 pounds, 179.6 kg # Patient Acct [id number] BSA: 2.93 m^2 BMI: 49.5 kg/m^2 # MR # [id number] Jeep Driver Sari Mosqueda Interpreting Physician Toni Damon Fellow Referring Nurse Practitioner Interpreting Referring Physician ESTEPHANIE RENEE, Fellow KITTY Type of Study TTE procedure:2D Echocardiogram, M-Mode, Doppler, Color Doppler. Procedure Date Date: 08/30/2020 Start: 08:59 AM Study Location: [facility] Technical Quality: Adequate visualization Indications:Bacteremia. History / Tech. Comments: Echo done at patient bedside. Procedure explained to patient. DM, A-fib, HTN Patient Status: Inpatient Height: 75 inches Weight: 396.01 pounds BSA: 2.93 m^2 BMI: 49.5 kg/m^2 CONCLUSIONS Summary Technically difficult study Normal LV size , mildly increased LV wall thickness. No obvious wall motion abnormality seen. Normal LV systolic function with LVEF 55%. Normal RV size and function. LA and RA appears normal in size. No obvious significant structural valvular abnormality noted. No significant valvular stenosis or regurgitation noted. Normal aortic root dimension. No significant pericardial effusion noted. IVC not well visualized Signature FINDINGS Left Atrium Left atrium is normal in size. Left Ventricle Left ventricle is normal in size. Global left ventricular systolic function is normal. Calculated ejection fraction 48% by Bah's method. Visually estimated EF 50-55%. Mild concentric left ventricular hypertrophy. Right Atrium Right atrium is normal in size. Right Ventricle Normal right ventricular size and function. TAPSE value of 1.94cm noted. Mitral Valve Mild mitral annular calcification is seen. No mitral regurgitation. Aortic Valve Normal aortic valve structure and function without stenosis or regurgitation. Tricuspid Valve Normal tricuspid valve structure and function. No tricuspid regurgitation. Pulmonic Valve The pulmonic valve is normal in structure. No pulmonic insufficiency. Pericardial Effusion No pericardial effusion seen. Miscellaneous E/E' average = 10.9. IVC not visualized. M-mode / 2D Measurements & Calculations: LVIDd:5.6 cm(3.7 - 5.6 cm) Diastolic Volume:48.2 ml LVIDs:3.99 cm(2.2 - 4.0 cm) Systolic Volume:24.8 ml IVSd:1.2 cm(0.6 - 1.1 cm) Aortic Root:4 cm(2.0 - 3.7 cm) LVPWd:1.2 cm(0.6 - 1.1 cm) LA Dimension: 3.3 cm(1.9 - 4.0 cm) Fractional Shortenin.75 % LA volume/Index: 31.8 ml /11m^2 Calculated LVEF (%): 48.55 % LVOT:2.5 cm RVDd:2.5 cm Mitral: Aortic Valve Area (P1/2-Time): 5.95 cm^2 Peak Velocity: 1.21 m/s Peak E-Wave: 0.85 m/s Mean Velocity: 0.81 m/s Peak A-Wave: 1.15 m/s Peak Gradient: 5.86 mmHg E/A Ratio: 0.74 Mean Gradient: 3 mmHg Peak Gradient: 2.88 mmHg Mean Gradient: 3 mmHg Deceleration Time: 127 msec Area (continuity): 3.86 cm^2 P1/2t: 37 msec AV VTI: 25.9 cm Area (continuity): 2.54 cm^2 Mean Velocity: 0.78 m/s Pulmonic: Peak Velocity: 1.10 m/s Peak Gradient: 4.84 mmHg Diastology / Tissue Doppler Septal Wall E' velocity:0.07 m/s Septal Wall E/E':11.6 Lateral Wall E' velocity:0.08 m/s Lateral Wall E/E':10.3 ASSESSMENT AND PLAN Assessment: //Septic shock secondary to acute ascending cholangitis requiring ERCP and biliary stent placement on 08/28. //Undiagnosed sleep apnea/OHS overlap picture with morbid obesity. //BMI of 50.12. //HTN/HLD. 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 //Initial presentation with supratherapeutic INR with no evidence of bleeding. Plan: I personally interviewed/examined the patient; reviewed interval history, interpreted all available radiographic and laboratory data at the time of service. Agree with BiPAP overnight. Diuresis as needed. We'll complete 10 days of meropenem for E. coli and ESBL Klebsiella cholangitis/pyelonephritis. Will need a sleep study as outpatient. Outpatient follow-up with Dr. Rae scheduled. Sleep study ordered as outpatient. Patient needs a home CPAP before discharge. We will continue to follow. Uzair Kay MD Internal Medicine Resident PGY-3 09/04/2020, 12:13 PM Associated attestation - Lonnie Juárez MD - 09/04/2020 7:04 PM EDT Attending Physician Statement I have discussed the care of Kamran Harley including pertinent history and exam findings with the resident. I have seen and examined the patient with the resident and the [place] elements of all parts of the encounter have been performed by me. The orders were discussed and the medication list was reviewed with the resident and is up to date. I agree with the problem list, assessment and plan as documented by resident. Lonnie Juárez MD Pulmonary & Critical Care Medicine Images from the original note were not included. [facility] Office: [phone] Epifanio Bradley DO, Jesus Poe DO, Lobito Hope DO, Lobo Wallace DO, Ibrahima Green MD, Rupinder Gonzalez MD, Josesito Aquino MD, Harvey Dotson MD, Eduardo Kolb MD, Dori Ag MD, Jose R Izaguirre MD, Trina Kay MD, Andrew Amezquita DO, Yumiko Casanova MD, Brody Pizano DO, Nacho Espino MD, Gelacio Epps DO, Main Ascencio MD, Milton James MD, Roxanne Martin MD, Guilherme Duff MD, Jasmyn Howard CNP, Zara Ferreira PET CAREGIVER, Estephanie Renee, PET CAREGIVER, Leana Martinez, CHECKER LOADER, Carlos Abdul, PET CAREGIVER, Nuris Walter, PET CAREGIVER, Keely Tomas PET CAREGIVER, Hemal Waite CNP, Richard Burrows CNP, Tye Castro PA-C, Rita Jacobo DNP, Jeannine Barakat, PET CAREGIVER, Lila Baxter, KITTY, Buffy Mueller CNP, Ingrid Jarrett CNP, Maty Nieves CNP, Faiza Billings, PET CAREGIVER [facility]-PATIENT SERVICE [facility] Progress Note 09/04/2020 8:26 AM Name: Kamran Harley Acct: [id number] Room: 0419/0419-02 Day: 8 Admit Date: 08/27/2020 12:46 PM PCP: Jesus Chopra DO Code Status: Full Code Subjective: C/C: Fatigue and shortness of breath Interval History Status: Improved Patient seen and examined at bedside, continue to improve, No acute events overnight and no new complain Afebrile overnight. Vitals and labs reviewed. Patient with chronic Lees He is flat in bed Await placement Labs and vitals in progress overnight reviewed with the nurse Brief History: Per critical care note Patient originally arrived to the hospital on 618 with chief complaints of fatigue, not feeling well, UTI symptoms and shortness of breath. Transferred to ICU on hospital day 1 as he became hypotensive. Found to have acute ascending cholangitis, choledocholithiasis complicated by E. coli bacteremia. Infectious disease was consulted originally was placed on vancomycin and Zosyn and then transitioned on 61 to meropenem with daily amikacin. GI and general surgery were consulted. Patient underwent an ERCP with stent placement and sphincterotomy on the . General surgery agrees with ERCP with stent placement, sphincterotomy no further percutaneous drainage recommended. Patient's vital signs improved, currently off all pressor support, tolerating 2 L nasal cannula, afebrile, leukocytosis improving. Patient is stable to be transferred to floor unit Review of Systems: Review of Systems Constitutional: Positive for activity change. Negative for chills, diaphoresis and fever. HENT: Negative for congestion. Eyes: Negative for visual disturbance. Respiratory: Negative for cough, chest tightness and wheezing. Cardiovascular: Negative for chest pain, palpitations and leg swelling. Gastrointestinal: Negative for abdominal pain, blood in stool, constipation, diarrhea, nausea and vomiting. Genitourinary: Negative for difficulty urinating. Neurological: Positive for weakness. Negative for dizziness, light-headedness, numbness and headaches. All other systems reviewed and are negative. Medications: Allergies: Allergies Allergen Reactions Oxytetracycline Penicillins Had a penicillin shot when he was 7 years old and had hives. Tolerated Zosyn 08/27 without problems Suspect reaction was to the shot and not to the penicillin Sulfa Antibiotics Had hives Current Meds: Scheduled Meds: insulin lispro 0-18 Units Subcutaneous TID WC insulin lispro 0-9 Units Subcutaneous Nightly insulin glargine 10 Units Subcutaneous Nightly enoxaparin 40 mg Subcutaneous BID miconazole Topical BID meropenem 1,000 mg Intravenous Q8H sodium chloride flush 5-40 mL Intravenous 2 times per day Continuous Infusions: sodium chloride dextrose PRN Meds: HYDROcodone 5 mg - acetaminophen, diphenhydrAMINE, guaiFENesin, LORazepam, sodium chloride, acetaminophen OR acetaminophen, magnesium sulfate, ondansetron OR ondansetron, polyethylene glycol, potassium chloride OR potassium alternative oral replacement OR potassium chloride, glucose, dextrose, glucagon (rDNA), dextrose, sodium chloride flush Data: Past Medical History: has a past medical history of Chronic anticoagulation: Coumadin, Coagulopathy (HCC), HLD (hyperlipidemia), HTN (hypertension), Hypomagnesemia, Ileostomy in place (HCC), Morbid obesity (HCC), Marni syndrome, Paroxysmal atrial fibrillation (HCC), and Type 2 diabetes mellitus (HCC). Social History: reports that he has never smoked. He has never used smokeless tobacco. Family History: Family History Problem Relation Age of Onset Diabetes Mother Other Father Vitals: BP (!) 151/65 Pulse 76 Temp 98 F (36.7 C) (Oral) Resp 18 Ht 6' 3 (1.905 m) Wt (!) 423 lb 1 oz (191.9 kg) SpO2 (!) 87% BMI 52.88 kg/m Temp (24hrs), Av F (36.7 C), Min:97.9 F (36.6 C), Max:98 F (36.7 C) Recent Labs 09/03/20 1230 09/03/20 1656 09/03/20 1937 09/04/20 0743 POCGLU 272* 232* 215* 271* I/O (24Hr): Intake/Output Summary (Last 24 hours) at 09/04/2020 0826 Last data filed at 09/04/2020 0547 Gross per 24 hour Intake Output 1750 ml Net -1750 ml Labs: Hematology: Recent Labs 09/02/20 0333 09/03/20 0636 09/04/20 0725 WBC 4.9 5.0 4.7 RBC 4.11* 4.66 4.29 HGB 11.4* 12.9* 11.7* HCT 38.9* 42.7 38.9* MCV 94.6 91.6 90.7 MCH 27.7 27.7 27.3 MCHC 29.3 30.2 30.1 RDW 16.2* 15.6* 15.3* PLT 279 147 346 MPV 10.3 11.5 10.7 Chemistry: Recent Labs 09/02/20 0333 09/03/20 0636 MG 1.8 2.0 Recent Labs 09/02/20 0333 09/02/20 0641 09/02/20 1942 09/03/20 0623 09/03/20 0636 09/03/20 1230 09/03/20 1656 09/03/20 1937 09/04/20 0743 PROT 5.4* -- -- -- 5.7* -- -- -- -- LABALBU 2.2* -- -- -- 2.4* -- -- -- -- AST 33 -- -- -- 41* -- -- -- -- ALT 29 -- -- -- 33 -- -- -- -- ALKPHOS 254* -- -- -- 257* -- -- -- -- BILITOT 1.96* -- -- -- 2.04* -- -- -- -- BILIDIR 1.22* -- -- -- 1.01* -- -- -- -- POCGLU -- < > 292* 242* -- 272* 232* 215* 271* < > = values in this interval not displayed. ABG: Lab Results Component Value Date POCPH 7.354 08/29/2020 POCPCO2 40.5 08/29/2020 POCPO2 146.3 08/29/2020 POCHCO3 22.6 08/29/2020 NBEA 3 08/29/2020 PBEA NOT REPORTED 08/29/2020 MTR1CFC NOT REPORTED 08/29/2020 IYHC8BIZ 99 08/29/2020 FIO2 40.0 08/29/2020 Lab Results Component Value Date/Time SPECIAL NOT REPORTED 08/27/2020 05:16 PM Lab Results Component Value Date/Time CULTURE (A) 08/27/2020 05:16 PM KLEBSIELLA PNEUMONIAE >[id number] CFU/ML THIS ORGANISM IS AN EXTENDED-SPECTRUM BETA-LACTAMASE STAFF VETERINARIAN AND RESISTANCE TO THERAPY WITH PENICILLINS, CEPHALOSPORINS AND AZTREONAM IS EXPECTED. THESE ORGANISMS GENERALLY REMAIN SUSCEPTIBLE TO CARBAPENEMS. CONSIDER ID CONSULTATION. Radiology: CT HEAD WO CONTRAST Result Date: 08/28/2020 No acute intracranial abnormality. CT ABDOMEN PELVIS W IV CONTRAST Additional Contrast? None Result Date: 08/27/2020 CTA OF THE CHEST: 1. No pulmonary embolism. 2. Dilation of the main pulmonary artery may signify pulmonary arterial hypertension. 3. No evidence of pneumonia. CT OF THE ABDOMEN AND PELVIS: 1. Edema surrounding the gallbladder, likely indicating acute cholecystitis. While no cholelithiasis is evident by CT, multiple calculi are seen in the common bile duct (choledocholithiasis). 2. Status post colectomy with right lower quadrant ileostomy. 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 No bowel wall thickening or obstruction. 3. Status post left inguinal hernia repair, with evidence of a recurrent shallow fat-containing hernia. No evidence of fat strangulation. US GALLBLADDER RUQ Result Date: 08/29/2020 Markedly limited examination due to patient body habitus and overlying bowel gas. Evaluation for cholelithiasis or acute cholecystitis is limited on this study. As a was inflammatory changes seen about the gallbladder the recent CT, if there is clinical concern for acute cholecystitis, HIDA scan may be considered for further evaluation. Patient's known choledocholithiasis is not well appreciated sonographically. The common bile duct appears normal in caliber measuring 5 mm. Increased echogenicity of the liver parenchyma, which may reflect underlying hepatic steatosis or other chronic liver parenchymal disease. XR CHEST PORTABLE Result Date: 08/30/2020 Improved aeration of lung compared to prior study interval removal of endotracheal tube. Right-sided central venous catheter remains unchanged. Persistent chronic interstitial markings bilaterally with no evidence for effusions. XR CHEST PORTABLE Result Date: 08/29/2020 Supportive tubing projects in normal position. Vascular congestion. Mild bibasilar atelectasis or airspace disease, with improved aeration on the left in the interval. XR CHEST PORTABLE Result Date: 08/28/2020 Possible mild pulmonary vascular congestion CT CHEST PULMONARY EMBOLISM W CONTRAST Result Date: 08/27/2020 CTA OF THE CHEST: 1. No pulmonary embolism. 2. Dilation of the main pulmonary artery may signify pulmonary arterial hypertension. 3. No evidence of pneumonia. CT OF THE ABDOMEN AND PELVIS: 1. Edema surrounding the gallbladder, likely indicating acute cholecystitis. While no cholelithiasis is evident by CT, multiple calculi are seen in the common bile duct (choledocholithiasis). 2. Status post colectomy with right lower quadrant ileostomy. 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 No bowel wall thickening or obstruction. 3. Status post left inguinal hernia repair, with evidence of a recurrent shallow fat-containing hernia. No evidence of fat strangulation. XR ABDOMEN FOR NG/OG/NE TUBE PLACEMENT Result Date: 08/29/2020 Nasogastric tube projects in normal position. Physical Examination: Physical Exam Vitals and nursing note reviewed. Constitutional: General: He is not in acute distress. Appearance: He is morbidly obese. He is ill-appearing. HENT: Head: Normocephalic and atraumatic. Eyes: Conjunctiva/sclera: Conjunctivae normal. Pupils: Pupils are equal, round, and reactive to light. Cardiovascular: Rate and Rhythm: Normal rate and regular rhythm. Heart sounds: No murmur heard. Pulmonary: Effort: Tachypnea and respiratory distress present. No accessory muscle usage. Breath sounds: No stridor. Decreased breath sounds and rales present. No wheezing or rhonchi. Abdominal: General: Bowel sounds are normal. There is no distension. Palpations: Abdomen is soft. Abdomen is not rigid. Tenderness: There is no abdominal tenderness. There is no guarding. Musculoskeletal: General: No tenderness. Skin: General: Skin is warm and dry. Findings: No erythema, lesion or rash. Neurological: Mental Status: He is alert and oriented to person, place, and time. Cranial Nerves: No cranial nerve deficit. Motor: No seizure activity. Psychiatric: Speech: Speech normal. Behavior: Behavior normal. Behavior is cooperative. Assessment: Hospital Problems Last Modified POA * (Principal) Gram negative septicemia (HCC) 08/30/2020 Yes Elevated liver enzymes 08/27/2020 Yes Diabetes mellitus (HCC) 08/27/[address] (HCC) 08/27/2020 Yes Paroxysmal A-fib (HCC) 08/27/2020 Yes Transaminasemia 08/27/2020 Yes Panniculitis 08/27/2020 Yes Supratherapeutic INR 08/27/2020 Yes Hypomagnesemia 08/27/2020 Yes Class 3 severe obesity due to excess calories with serious comorbidity and body mass index (BMI) of 50.0 to 59.9 in adult ([facility]) 08/29/2020 Yes HTN (hypertension) 08/27/2020 Yes Coagulopathy ([facility]) 08/27/2020 Yes Chronic anticoagulation: Coumadin 08/27/2020 Yes Sepsis (HCC) 08/27/2020 Yes History of DVT (deep vein thrombosis) 08/27/2020 Yes Acute encephalopathy 08/28/2020 Yes Acute cholangitis 08/30/2020 Yes Complicated UTI (urinary tract infection) 08/28/2020 Yes Ascending cholangitis 08/29/2020 Yes Morbid obesity ([facility]) 08/30/2020 Yes Plan: -Give another dose of Lasix 40 IV today -BiPAP at night time -Continue supplemental oxygen -Continue antibiotic. -Per GI warfarin to be held for 7 days, to be restarted 09/04, will restart -Continue blood pressure and glycemic control -Continue other chronic meds for his chronic conditions.. -Appreciate GI and ID recommendations -Check electrolytes and replace as needed. -DVT and GI prophylaxis -Discussed with the patient -Place midline for IV abx -PT/OT -DC planning - Needs sleep study as OP , [facility] Med rec done Scripts added ENID signed 30+ minutes spent Can be discharged once bed available Harvey Dotson MD 09/04/2020 8:26 AM Images from the original note were not included. [facility] Progress Note Kamran Harley Date: 09/04/2020 LOS: 8 Reason for F/U : E. coli/ESBL Klebsiella sepsis Impression : 1. Polymicrobial sepsis with E. coli and ESBL Klebsiella secondary to cholangitis/pyelonephritis 2. ESBL Klebsiella urinary tract infection/pyelonephritis 3. Cholangitis with obstructive stone 4. Status post ERCP 08/28/2020, sphincterectomy with multiple stone removal 5. Acute kidney injury 6. Morbid obesity Recommendations: Patient continues on meropenem Plan per Dr. 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 He feels he has had some dysuria and is concerned he might be having a UTI. Came to the ER he was having fever, blood cultures taken and he was sent to the floor Today he is getting short of breath lethargic, tachycardic, hypotensive. He was started on vancomycin and Zosyn, since blood cultures are showing gram-negative rods Urine culture remains pending gram-negative rods CT of the abdomen showed normal kidneys, gallbladder showed multiple stones with some obstruction, suspect there is for ascending cholangitis, there is edema around the gallbladder as well GI contemplating ERCP once more stable Patient being transferred to the ICU 08/28: Discussed with GI, they will defer ERCP till he stabilizes, agree with cholecystostomy in the meantime to decompress Patient sleepy arousable very appropriate, discussed with him his allergy to penicillin as stated in the impression section. He tolerated Zosyn so far without any hives He does have a tenderness over the right upper quadrant Multiple over both knees Lees with hemal urine but no cloudiness Presents with septic shock and acute encephalopathy, progressing during his admission, gram-negative septicemia seems to be related to a complicated UTI but also to an obstructive cholangitis Patient has progressed into severe sepsis during his admission and hence he is at risk to develop multiorgan failure He did have a history of UTIs, multiple antibiotic intake in the past and hence he is at risk for MDRO gram-negative Current evaluation:09/04/2020 BP (!) 151/65 Pulse 76 Temp 98 F (36.7 C) (Oral) Resp 18 Ht 6' 3 (1.905 m) Wt (!) 423 lb 1 oz (191.9 kg) SpO2 (!) 87% BMI 52.88 kg/m Temperature Range: Temp: 98 F (36.7 C) Temp Av F (36.7 C) Min: 97.9 F (36.6 C) Max: 98 F (36.7 C) Patient was seen and evaluated lying in bed, he is sitting up He denies abdominal pain No nausea, vomiting or diarrhea Review of Systems Constitutional: Negative. HENT: Negative. Respiratory: Negative. Cardiovascular: Negative. Gastrointestinal: Negative. Genitourinary: Negative. Musculoskeletal: Negative. Skin: Negative. Neurological: Negative. Psychiatric/Behavioral: Negative. Physical Examination : Physical Exam Constitutional: General: He is not in acute distress. Appearance: Normal appearance. He is obese. HENT: Head: Normocephalic and atraumatic. Pulmonary: Effort: Pulmonary effort is normal. No respiratory distress. Abdominal: General: Abdomen is flat. Bowel sounds are normal. There is no distension. Palpations: Abdomen is soft. Skin: General: Skin is warm and dry. Coloration: Skin is not jaundiced. Neurological: General: No focal deficit present. Mental Status: He is alert and oriented to person, place, and time. Mental status is at baseline. Psychiatric: Mood and Affect: Mood normal. Behavior: Behavior normal. Thought Content: Thought content normal. Laboratory data: I have independently reviewed the followinglabs: CBC with Differential: Recent Labs 09/02/20 0333 09/03/20 0636 WBC 4.9 5.0 HGB 11.4* 12.9* HCT 38.9* 42.7 PLT 279 147 BMP: Recent Labs 09/02/20 0333 09/03/20 0636 MG 1.8 2.0 Hepatic Function Panel: Recent Labs 09/02/20 0333 09/03/20 0636 PROT 5.4* 5.7* LABALBU 2.2* 2.4* BILIDIR 1.22* 1.01* IBILI 0.74 1.03* BILITOT 1.96* 2.04* ALKPHOS 254* 257* ALT 29 33 AST 33 41* Lab Results Component Value Date PROCAL 1.53 09/02/2020 PROCAL 5.75 08/31/2020 PROCAL 23.04 08/29/2020 No results found for: CRP No results found for: SEDRATE No results found for: DDIMER No results found for: FERRITIN No results found for: LDH No results found for: FIBRINOGEN Results in Past 30 Days Result Component Current Result Ref Range Previous Result Ref Range SARS-CoV-2, Rapid Not Detected (08/28/2020) Not Detected Not in Time Range Lab Results Component Value Date COVID19 Not Detected 08/28/2020 No results for input(s): VANCOTROUGH in the last 72 hours. Imaging Studies: No new imaging Cultures: 08/29/2020 8:21 AM - DimitrisChaya wagner Incoming Lab Results From [facility] Specimen Information: Urine, clean catch Component Collected Lab Specimen Description 08/27/2020 5:16 PM [employer] .CLEAN CATCH URINE Special Requests 08/27/2020 5:16 PM [employer] NOT REPORTED Culture Abnormal 08/27/2020 5:16 PM [employer] KLEBSIELLA PNEUMONIAE >[id number] CFU/ML THIS ORGANISM IS AN EXTENDED-SPECTRUM BETA-LACTAMASE STAFF VETERINARIAN AND RESISTANCE TO THERAPY WITH PENICILLINS, CEPHALOSPORINS AND AZTREONAM IS EXPECTED. THESE ORGANISMS GENERALLY REMAIN SUSCEPTIBLE TO CARBAPENEMS. CONSIDER ID CONSULTATION. Testing Performed By Lab - Abbreviation Name Director Address Valid Date Range [email or web address] Nhan Mast MD [address] [facility] [id number] 11/08/16 0801-Present Susceptibility Klebsiella pneumoniae (1) Antibiotic Interpretation JASON Status amikacin Final NOT REPORTED ampicillin Resistant Final >=32 RESISTANT ampicillin-sulbactam Final NOT REPORTED aztreonam Resistant Final >=64 RESISTANT ceFAZolin Resistant Final >=64 RESISTANT ceFAZolin Resistant Cefazolin sensitivity results can be used to predict the effectiveness of oral cephalosporins (eg. Cephalexin) in uncomplicated Urinary Tract Infections due to E. coli, K. pneumoniae, and P. mirabilis Final cefepime Resistant Final >=64 RESISTANT cefTRIAXone Resistant Final >=64 RESISTANT ciprofloxacin Intermediate Final 2 INTERMEDIATE ertapenem Final NOT REPORTED Confirmatory Extended Spectrum Beta-Lactamase Positive POSITIVE Final gentamicin Sensitive Final <=1 SUSCEPTIBLE meropenem Sensitive Final <=0.25 SUSCEPTIBLE nitrofurantoin Intermediate Final 64 INTERMEDIATE tigecycline Final NOT REPORTED tobramycin Intermediate Final 8 INTERMEDIATE trimethoprim-sulfamethoxazole Resistant Final >=320 RESISTANT piperacillin-tazobactam Resistant Final 64 RESISTANT Lab and Collection Culture, Urine - 08/27/2020 Result History Culture, Urine on 08/29/2020 08/31/2020 10:25 AM - Chaya Shanks Incoming Lab Results From [facility] Specimen Information: Blood Component Collected Lab Specimen Description 08/27/2020 2:20 PM [employer] .BLOOD Special Requests 08/27/2020 2:20 PM [employer] RT FOREARM 6 ML Culture Abnormal 08/27/2020 2:20 PM [employer] POSITIVE Blood Culture Results called to and read back by: REGINO Mtz 08/28/20 0315 Culture 08/27/2020 2:20 PM [employer] DIRECT GRAM STAIN FROM BOTTLE: GRAM NEGATIVE RODS Culture Abnormal 08/27/2020 2:20 PM [employer] ESCHERICHIA COLI Culture Abnormal 08/27/2020 2:20 PM [employer] KLEBSIELLA PNEUMONIAE THIS ORGANISM IS AN EXTENDED-SPECTRUM BETA-LACTAMASE STAFF VETERINARIAN AND RESISTANCE TO THERAPY WITH PENICILLINS, CEPHALOSPORINS AND AZTREONAM IS EXPECTED. THESE ORGANISMS GENERALLY REMAIN SUSCEPTIBLE TO CARBAPENEMS. CONSIDER ID CONSULTATION. Testing Performed By Lab - Abbreviation Name Director Address Valid Date Range [email or web address] Nhan Mast MD [address] [facility] [id number] 11/08/16 0801-Present Susceptibility Escherichia coli (3) Antibiotic Interpretation JASON Status amikacin Final NOT REPORTED ampicillin Resistant Final >=32 RESISTANT ampicillin-sulbactam Final NOT REPORTED aztreonam Sensitive Final <=1 SUSCEPTIBLE ceFAZolin Sensitive Final <=4 SUSCEPTIBLE cefepime Final NOT REPORTED cefTRIAXone Sensitive Final <=1 SUSCEPTIBLE ciprofloxacin Sensitive Final 1 SUSCEPTIBLE ertapenem Final NOT REPORTED Confirmatory Extended Spectrum Beta-Lactamase Negative NEGATIVE Final gentamicin Sensitive Final <=1 SUSCEPTIBLE meropenem Final NOT REPORTED nitrofurantoin Final NOT REPORTED tigecycline Final NOT REPORTED tobramycin Sensitive Final <=1 SUSCEPTIBLE trimethoprim-sulfamethoxazole Sensitive Final <=20 SUSCEPTIBLE piperacillin-tazobactam Sensitive Final <=4 SUSCEPTIBLE Klebsiella pneumoniae (4) Antibiotic Interpretation JASON Status amikacin Final NOT REPORTED ampicillin Resistant Final >=32 RESISTANT ampicillin-sulbactam Final NOT REPORTED aztreonam Resistant Final 32 RESISTANT ceFAZolin Resistant Final >=64 RESISTANT cefepime Resistant Final 2 RESISTANT cefTRIAXone Resistant Final >=64 RESISTANT ciprofloxacin Resistant Final >=4 RESISTANT ertapenem Final NOT REPORTED Confirmatory Extended Spectrum Beta-Lactamase Positive POSITIVE Final gentamicin Sensitive Final <=1 SUSCEPTIBLE meropenem Sensitive Final <=0.25 SUSCEPTIBLE nitrofurantoin Final NOT REPORTED tobramycin Intermediate Final 8 INTERMEDIATE trimethoprim-sulfamethoxazole Resistant Final >=320 RESISTANT piperacillin-tazobactam Resistant Final 32 RESISTANT Condensed View Lab and Collection Culture, Blood 1 - 08/27/2020 Result History Culture, Blood 1 on 08/31/2020 Result Information Flag: AbnormalAbnormal Status: Final result (Collected: 08/27/2020 14:20) Result Information Flag: AbnormalAbnormal Status: Final result (Collected: 08/27/2020 17:16) Provider Status: Ordered Routing History Priority Sent On From To Message Type 08/28/2020 7:42 AM Chaya Shanks Incoming Lab Results From [facility] Culture, Blood 2 [[id number]] Collected: 08/27/20 1505 Order Status: Completed Specimen: Blood Updated: 09/04/20 0002 Specimen Description .BLOOD Special Requests R H 10 ML Culture NO GROWTH 5 DAYS Culture, Blood 1 [[id number]] Collected: 08/27/20 1642 Order Status: Completed Specimen: Blood Updated: 09/02/20 0010 Specimen Description .BLOOD Special Requests L HAND TOP 2 ML Culture NO GROWTH 6 DAYS Culture, Blood 1 [[id number]] (Abnormal) Collected: 08/27/20 1431 Order Status: Completed Specimen: Blood Updated: 09/01/20 0814 Specimen Description .BLOOD Special Requests LT HAND 7.5ML Culture POSITIVE Blood Culture Results called to and read back by: REGINO Mtz 08/28/20 0315Abnormal DIRECT GRAM STAIN FROM BOTTLE: GRAM NEGATIVE RODS Escherichia coli Detected: Methodology- Polymerase Chain Reaction (PCR)Abnormal ESCHERICHIA COLIAbnormal Culture, Blood 1 [[id number]] (Abnormal) Collected: 08/27/20 1420 Order Status: Completed Specimen: Blood Updated: 08/31/20 1025 Specimen Description .BLOOD Special Requests RT FOREARM 6 ML Culture POSITIVE Blood Culture Results called to and read back by: REGINO Mtz 08/28/20 0315Abnormal DIRECT GRAM STAIN FROM BOTTLE: GRAM NEGATIVE RODS ESCHERICHIA COLIAbnormal KLEBSIELLA PNEUMONIAE THIS ORGANISM IS AN EXTENDED-SPECTRUM BETA-LACTAMASE STAFF VETERINARIAN AND RESISTANCE TO THERAPY WITH PENICILLINS, CEPHALOSPORINS AND AZTREONAM IS EXPECTED. THESE ORGANISMS GENERALLY REMAIN SUSCEPTIBLE TO CARBAPENEMS. CONSIDER ID CONSULTATION.Abnormal MRSA DNA Probe, Nasal [[id number]] (Abnormal) Collected: 08/28/20 1447 Order Status: Completed Specimen: Nasal Updated: 08/29/20 1321 Specimen Description .NASAL SWAB MRSA, DNA, Nasal POSITIVE: MRSA DNA detected by nucleic acid amplification.Abnormal Comment: Results should be used as an adjunct to nosocomial control efforts to identify patients needing enhanced precautions. The test is not intended to identify patients with staphylococcal infections. Results should not be used to guide or monitor treatment for MRSA infections. Culture, Urine [[id number]] (Abnormal) Collected: 08/27/20 1716 Order Status: Completed Specimen: Urine, clean catch Updated: 08/29/20 0821 Specimen Description .CLEAN CATCH URINE Special Requests NOT REPORTED Culture KLEBSIELLA PNEUMONIAE >[id number] CFU/ML THIS ORGANISM IS AN EXTENDED-SPECTRUM BETA-LACTAMASE STAFF VETERINARIAN AND RESISTANCE TO THERAPY WITH PENICILLINS, CEPHALOSPORINS AND AZTREONAM IS EXPECTED. THESE ORGANISMS GENERALLY REMAIN SUSCEPTIBLE TO CARBAPENEMS. CONSIDER ID CONSULTATION.Abnormal Medications: insulin lispro 0-18 Units Subcutaneous TID WC insulin lispro 0-9 Units Subcutaneous Nightly insulin glargine 10 Units Subcutaneous Nightly enoxaparin 40 mg Subcutaneous BID miconazole Topical BID meropenem 1,000 mg Intravenous Q8H sodium chloride flush 5-40 mL Intravenous 2 times per day [facility] FEMI ROSENTHAL CNP [employer] OFFICE: Thank you for allowing us to participate in the care of this patient. Please call with questions. This note iscreated with the assistance of a speech recognition program. While intending to generate a document that actually reflects the content of the visit, the document can still have some errors including those of syntax andsound a like substitutions which may escape proof reading. In such instances, actual meaning can be extrapolated by contextual diversion. PATIENT REFUSES TO WEAR BIPAP [x] Risks and benefits explained to patient [x] Patient refuses to wear Bipap stating no. [x] Patient verbalizes understanding of information presented. Images from the original note were not included. Occupational Therapy [facility] Occupational Therapy Not Seen Note DATE: 09/03/2020 Name: Kamran Harley : 1950 Patient not available for Occupational Therapy due to: [] Testing: [] Hemodialysis [] Blood Transfusion in Progress [x]Refusal by Patient: Pt. Declined OT services this date d/t fatigue, despite encouragement pt. declined. [] Surgery/Procedure: [] Strict Bedrest [] Sedation [] Spine Precautions [] Pt with medical decline and not appropriate for continued therapy services. Spoke with pt/family and OT services to be defered. [] Pt independent with functional mobility and functional tasks. Pt with no OT acute care needs at this time, will defer OT eval. [] Other Next Scheduled Treatment: [facility] MEDICINE PROGRESS NOTE Patient: Kamran Harley Admit date: 08/27/2020 Primary Care Physician: Jesus Chopra DO Consulting Physician: Harvey Dotson MD CODE Status: Full Code LOS: 7 SUBJECTIVE BRIEF HOSPITAL COURSE: The patient is a 70 y.o. male morbidly obese, history of paroxysmal A. fib, HTN/HLD, history of DVTs on Coumadin, presenting with generalized discomfort nausea and chills. Initial labs revealed a significant supratherapeutic INR of 12.[address] scan of the abdomen and pelvis showing evidence of acute cholecystitis with multiple CBD stones. Initially was tachycardic and hypotensive and transferred to ICU. 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 Subsequently underwent ERCP on the with stone and pus extraction with biliary stent placement. Concurrently on meropenem and transferred out of the ICU. History of undiagnosed likely sleep apnea/OHS overlap and was hypoxic yesterday with improved with Lasix and or nightly BiPAP. Currently on 3 L. INTERVAL HISTORY: 09/03/20 No acute issues. Has been weaned off oxygen. Although does require on and off 1 to 2 L. Recommend a home O2 eval before discharge. Status quo and await placement. REVIEW OF SYSTEMS: Constitutional: Negative for activity change, appetite change, chills, diaphoresis and fatigue. HENT: Negative. Eyes: Negative. Respiratory: Negative for apnea, cough, choking, chest tightness and shortness of breath. Cardiovascular: Negative. Negative for chest pain and leg swelling. Gastrointestinal: Negative. Endocrine: Negative. Genitourinary: Negative. Negative for difficulty urinating, dysuria, enuresis and flank pain. Musculoskeletal: Negative for arthralgias, back pain and gait problem. Skin: Negative. Allergic/Immunologic: Negative. Neurological: Negative. OBJECTIVE VENTILATOR SETTINGS: Vent Information $Ventilation: Off Vent Skin Assessment: Clean, dry, & intact Equipment ID: [id number] Equipment Changed: HME Vent Type: Servo i Vent Mode: CPAP Vt Ordered: 580 mL Rate Set: 20 bmp Pressure Support: 6 cmH20 FiO2 : 40 % SpO2: 99 % SpO2/FiO2 ratio: 250 Sensitivity: 3 PEEP/CPAP: 5 I Time/ I Time %: 0.9 s Humidification Source: HME Mask Type: Full face mask Mask Size: Large PaO2/FiO2 RATIO: No results for input(s): POCPO2 in the last 72 hours. FiO2 : 40 % VITAL SIGNS: LAST: BP (!) 167/80 Pulse 66 Temp 97.9 F (36.6 C) (Oral) Resp 26 Ht 6' 3 (1.905 m) Wt (!) 423 lb 3.2 oz (192 kg) SpO2 99% BMI 52.90 kg/m 8-24 HR RANGE: TEMP Temp Av.8 F (36.6 C) Min: 97.1 F (36.2 C) Max: 98.1 F (36.7 C) BP Systolic (24hrs), Av , Min:145 , Max:171 Diastolic (24hrs), Av, Min:61, Max:83 PULSE Pulse Av.5 Min: 60 Max: 78 RR Resp Av.5 Min: 26 Max: 33 O2 SAT SpO2 Av.5 % Min: 94 % Max: 99 % OXYGEN DELIVERY O2 Flow Rate (L/min) Av L/min Min: 2 L/min Max: 2 L/min SYSTEMIC EXAMINATION: General appearance -alert and oriented. Mental status -as above. Eyes - pupils equal and reactive, sclera anicteric Mouth - mucous membranes moist, pharynx normal without lesions Neck - supple, no significant adenopathy, carotids upstroke normal bilaterally, no bruits Chest -bilateral decreased breath sound at bases. No crackles or wheezes appreciated. Heart - normal rate, regular rhythm, normal S1, S2, no murmurs, rubs, clicks or gallops Abdomen -right lower quadrant end ileostomy. Neurological - DTR's normal and symmetric, motor and sensory grossly normal bilaterally Extremities - peripheral pulses normal, no pedal edema, no clubbing or cyanosis Skin - normal coloration and turgor, no rashes, no suspicious skin lesions noted DATA REVIEW Medications: Scheduled Meds: insulin lispro 0-18 Units Subcutaneous TID insulin lispro 0-9 Units Subcutaneous Nightly insulin glargine 10 Units Subcutaneous Nightly enoxaparin 40 mg Subcutaneous BID miconazole Topical BID meropenem 1,000 mg Intravenous Q8H sodium chloride flush 5-40 mL Intravenous 2 times per day Continuous Infusions: sodium chloride dextrose INPUT/OUTPUT: In: - Out: 1300 [Urine:1200] Date 09/03/20 0000 - 09/03/20 235 Shift 7152-2803 9497-1302 1470-4089 24 Hour Total INTAKE Shift Total(mL/kg) OUTPUT Urine(mL/kg/hr) 400(0.3) 400 Stool(mL/kg) 100(0.5) 100(0.5) Shift Total(mL/kg) 500(2.7) 500(2.6) Weight (kg) 181.9 192 192 192 LABS: ABGs: No results for input(s): POCPH, POCPCO2, POCPO2, POCHCO3, ZPWY3RRM in the last 72 hours. CBC: Recent Labs 09/01/20 0317 09/01/20 2248 09/02/20 0333 09/03/20 0636 WBC 5.6 6.3 4.9 5.0 HGB 11.6* 12.3* 11.4* 12.9* HCT 39.3* 39.2* 38.9* 42.7 MCV 92.7 88.7 94.6 91.6 PLT 164 215 279 147 RBC 4.24 4.42 4.11* 4.66 MCH 27.4 27.8 27.7 27.7 MCHC 29.5 31.4 29.3 30.2 RDW 16.8* 16.2* 16.2* 15.6* CRP: No results for input(s): CRP in the last 72 hours. LDH: No results for input(s): LDH in the last 72 hours. BMP: No results for input(s): NA, K, CL, CO2, BUN, CREATININE, GLUCOSE, PHOS, IONCA in the last 72 hours. Invalid input(s): MG, CA Liver Function Test: Recent Labs 09/01/20 0317 09/02/20 0333 09/03/20 0636 PROT 5.2* 5.4* 5.7* LABALBU 2.0* 2.2* 2.4* ALT 24 29 33 AST 24 33 41* ALKPHOS 232* 254* 257* BILITOT 2.02* 1.96* 2.04* Coagulation Profile: No results for input(s): INR, PROTIME, APTT in the last 72 hours. D-Dimer: No results for input(s): DDIMER in the last 72 hours. Lactic Acid: No results for input(s): LACTA in the last 72 hours. Cardiac Enzymes: No results for input(s): CKTOTAL, CKMB, CKMBINDEX, TROPONINI in the last 72 hours. Invalid input(s): TROPONIN, HSTROP BNP/ProBNP: No results for input(s): BNP, PROBNP in the last 72 hours. Triglycerides: No results for input(s): TRIG in the last 72 hours. Microbiology: Urine Culture: No components found for: CURINE Blood Culture: No components found for: CBLOOD, CFUNGUSBL Sputum Culture: No components found for: CSPUTUM No results for input(s): SPECDESC, SPECIAL, CULTURE, STATUS, ORG, CDIFFTOXPCR, CAMPYLOBPCR, SALMONELLAPC, SHIGAPCR, SHIGELLAPCR, MPNEUG, MPNEUM, LACTOQL in the last 72 hours. No results for input(s): SPUTUM, SPECDESC, SPECIAL, CULTURE, STATUS, ORG, CDIFFTOXPCR, MPNEUM, MPNEUG in the last 72 hours. Invalid input(s): CURINE, CBLOOD, CFUNGUSBL Pathology: Radiology Reports: XR CHEST PORTABLE Final Result Pulmonary vascular congestion with interstitial pulmonary edema similar to prior study. XR CHEST PORTABLE Final Result Improved aeration of lung compared to prior study interval removal of endotracheal tube. Right-sided central venous catheter remains unchanged. Persistent chronic interstitial markings bilaterally with no evidence for effusions. US GALLBLADDER RUQ Final Result Markedly limited examination due to patient body habitus and overlying bowel gas. Evaluation for cholelithiasis or acute cholecystitis is limited on this study. As a was inflammatory changes seen about the gallbladder the recent CT, if there is clinical concern for acute cholecystitis, HIDA scan may be considered for further evaluation. Patient's known choledocholithiasis is not well appreciated sonographically. The common bile duct appears normal in caliber measuring 5 mm. Increased echogenicity of the liver parenchyma, which may reflect underlying hepatic steatosis or other chronic liver parenchymal disease. XR CHEST PORTABLE Final Result Supportive tubing projects in normal position. Vascular congestion. Mild bibasilar atelectasis or airspace disease, with improved aeration on the left in the interval. XR ABDOMEN FOR NG/OG/NE TUBE PLACEMENT Final Result Nasogastric tube projects in normal position. FLUORO FOR SURGICAL PROCEDURES Final Result XR CHEST PORTABLE Final Result Possible mild pulmonary vascular congestion CT HEAD WO CONTRAST Final Result No acute intracranial abnormality. CT CHEST PULMONARY EMBOLISM W CONTRAST Final Result CTA OF THE CHEST: 1. No pulmonary embolism. 2. Dilation of the main pulmonary artery may signify pulmonary arterial hypertension. 3. No evidence of pneumonia. CT OF THE ABDOMEN AND PELVIS: 1. Edema surrounding the gallbladder, likely indicating acute cholecystitis. While no cholelithiasis is evident by CT, multiple calculi are seen in the common bile duct (choledocholithiasis). 2. Status post colectomy with right lower quadrant ileostomy. 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 No bowel wall thickening or obstruction. 3. Status post left inguinal hernia repair, with evidence of a recurrent shallow fat-containing hernia. No evidence of fat strangulation. CT ABDOMEN PELVIS W IV CONTRAST Additional Contrast? None Final Result CTA OF THE CHEST: 1. No pulmonary embolism. 2. Dilation of the main pulmonary artery may signify pulmonary arterial hypertension. 3. No evidence of pneumonia. CT OF THE ABDOMEN AND PELVIS: 1. Edema surrounding the gallbladder, likely indicating acute cholecystitis. While no cholelithiasis is evident by CT, multiple calculi are seen in the common bile duct (choledocholithiasis). 2. Status post colectomy with right lower quadrant ileostomy. 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 No bowel wall thickening or obstruction. 3. Status post left inguinal hernia repair, with evidence of a recurrent shallow fat-containing hernia. No evidence of fat strangulation. Echocardiogram: Results for orders placed during the hospital encounter of 08/27/20 ECHO Complete 2D W Doppler W Color Narrative Transthoracic Echocardiography Report (TTE) Patient Name ANDI Date of Study 08/30/2020 KAMRAN Pike Date of 1950 Gender Male Age 70 year(s) Race Room Number 0117 Height: 75 inch, 190.5 cm Corporate ID [id number] Weight: 396 pounds, 179.6 kg # Patient Acct [id number] BSA: 2.93 m^2 BMI: 49.5 kg/m^2 # MR # [id number] Jeep Driver Sari Mosqueda Interpreting Physician Toni Damon Fellow Referring Nurse Practitioner Interpreting Referring Physician ESTEPHANIE RENEE, Fellow KITTY Type of Study TTE procedure:2D Echocardiogram, M-Mode, Doppler, Color Doppler. Procedure Date Date: 08/30/2020 Start: 08:59 AM Study Location: [facility] Technical Quality: Adequate visualization Indications:Bacteremia. History / Tech. Comments: Echo done at patient bedside. Procedure explained to patient. DM, A-fib, HTN Patient Status: Inpatient Height: 75 inches Weight: 396.01 pounds BSA: 2.93 m^2 BMI: 49.5 kg/m^2 CONCLUSIONS Summary Technically difficult study Normal LV size , mildly increased LV wall thickness. No obvious wall motion abnormality seen. Normal LV systolic function with LVEF 55%. Normal RV size and function. LA and RA appears normal in size. No obvious significant structural valvular abnormality noted. No significant valvular stenosis or regurgitation noted. Normal aortic root dimension. No significant pericardial effusion noted. IVC not well visualized Signature FINDINGS Left Atrium Left atrium is normal in size. Left Ventricle Left ventricle is normal in size. Global left ventricular systolic function is normal. Calculated ejection fraction 48% by Bah's method. Visually estimated EF 50-55%. Mild concentric left ventricular hypertrophy. Right Atrium Right atrium is normal in size. Right Ventricle Normal right ventricular size and function. TAPSE value of 1.94cm noted. Mitral Valve Mild mitral annular calcification is seen. No mitral regurgitation. Aortic Valve Normal aortic valve structure and function without stenosis or regurgitation. Tricuspid Valve Normal tricuspid valve structure and function. No tricuspid regurgitation. Pulmonic Valve The pulmonic valve is normal in structure. No pulmonic insufficiency. Pericardial Effusion No pericardial effusion seen. Miscellaneous E/E' average = 10.9. IVC not visualized. M-mode / 2D Measurements & Calculations: LVIDd:5.6 cm(3.7 - 5.6 cm) Diastolic Volume:48.2 ml LVIDs:3.99 cm(2.2 - 4.0 cm) Systolic Volume:24.8 ml IVSd:1.2 cm(0.6 - 1.1 cm) Aortic Root:4 cm(2.0 - 3.7 cm) LVPWd:1.2 cm(0.6 - 1.1 cm) LA Dimension: 3.3 cm(1.9 - 4.0 cm) Fractional Shortenin.75 % LA volume/Index: 31.8 ml /11m^2 Calculated LVEF (%): 48.55 % LVOT:2.5 cm RVDd:2.5 cm Mitral: Aortic Valve Area (P1/2-Time): 5.95 cm^2 Peak Velocity: 1.21 m/s Peak E-Wave: 0.85 m/s Mean Velocity: 0.81 m/s Peak A-Wave: 1.15 m/s Peak Gradient: 5.86 mmHg E/A Ratio: 0.74 Mean Gradient: 3 mmHg Peak Gradient: 2.88 mmHg Mean Gradient: 3 mmHg Deceleration Time: 127 msec Area (continuity): 3.86 cm^2 P1/2t: 37 msec AV VTI: 25.9 cm Area (continuity): 2.54 cm^2 Mean Velocity: 0.78 m/s Pulmonic: Peak Velocity: 1.10 m/s Peak Gradient: 4.84 mmHg Diastology / Tissue Doppler Septal Wall E' velocity:0.07 m/s Septal Wall E/E':11.6 Lateral Wall E' velocity:0.08 m/s Lateral Wall E/E':10.3 ASSESSMENT AND PLAN Assessment: //Septic shock secondary to acute ascending cholangitis requiring ERCP and biliary stent placement on 08/28. //Undiagnosed sleep apnea/OHS overlap picture with morbid obesity. //BMI of 50.12. //HTN/HLD. 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 //Initial presentation with supratherapeutic INR with no evidence of bleeding. Plan: I personally interviewed/examined the patient; reviewed interval history, interpreted all available radiographic and laboratory data at the time of service. Agree with BiPAP overnight. Diuresis needed. Antibiotics as per primary discussion. Will need a sleep study as outpatient. Please arrange follow-up with Dr. Rae as outpatient. Patient needs a home CPAP before discharge. We will continue to follow. The patient is/remains critically ill with illness/injury that acutely impairs one or more vital organ systems, such that there is a high probability of imminent or life threatening deterioration in the patient's condition. Critical care time of 35 minutes was spent (excluding procedures), in coordination of care during bedside rounds and discussion of patient care in detail, and recommendations of the team were adopted in the plan. Necessity of all invasive devices was also confirmed. Uzair Kay MD Internal Medicine Resident PGY-3 09/03/2020, 2:50 PM Attending Physician Statement I have discussed the care of Kamran Harley, including pertinent history and exam findings, with the resident. I have seen and examined the patient and the [place] elements of all parts of the encounter have been performed by me. I agree with the assessment, plan and orders as documented by the resident with additions . Treatment plan Discussed with nursing staff in detail , all questions answered . Please note that this chart was generated using voice recognition [employer] dictation software. Although every effort was made to ensure the accuracy of this automated barber instructor, some errors in barber instructor may have occurred. Comprehensive Nutrition Assessment Type and Reason for Visit: Initial (LOS) Nutrition Recommendations/Plan: Continue current diet - monitor for diet advancement. Will modify ONS order to provide Ensure Enlive oral supplements with all meals. Encourage/monitor PO intakes as tolerated. Monitor labs, weights, and plan of care. Nutrition Assessment: Pt seen for length of stay. Admitted with c/o SOB, fatigue, and hematuria. PMHx includes: HTN, DM, Olgivie's Syndrome. Pt with an ileostomy. Pt with acute ascending cholangitis, choledocholithiasis - s/p ERCP with sphincterotomy and biliary stent placement on 08/28. Pt currently remains on a Full Liquid diet with clear liquid oral supplements. Pt consuming 50% of meals. Will provide additional ONS and monitor for diet advancement. Pt having ileostomy output. Labs reviewed: Glucose 242-272 mg/dL. Meds reviewed: Lantus, Humalog, Merrem. Malnutrition Assessment: Malnutrition Status: At risk for malnutrition Context: Acute Illness Findings of the 6 clinical characteristics of malnutrition: Energy Intake: 1 - 75% or less of estimated energy requirements for 7 or more days Weight Loss: No significant weight loss Body Fat Loss: No significant body fat loss Muscle Mass Loss: No significant muscle mass loss Fluid Accumulation: 7 - Moderate to Severe Extremities, Generalized Cloth Burler Strength: Not Performed Estimated Daily Nutrient Needs: Energy (kcal): MSJ x 1.1= 5336-0245 kcals/day; Weight Used for Energy Requirements: Current Protein (g): 1.4-1.6 gm/kg = 125-145 gm pro/day; Weight Used for Protein Requirements: [place] Fluid (ml/day): 2530-3731 mL/day or per MD; Method Used for Fluid Requirements: 1 ml/kcal Nutrition Related Findings: Labs/Meds reviewed. Ileostomy with output. Hypoactive bowel sounds. Wounds: Multiple (traumatic wound to abdomen; skin tear to coccyx) Current Nutrition Therapies: Adult Oral Nutrition Supplement; Clear Liquid Oral Supplement ADULT DIET; Full Liquid Anthropometric Measures: Height: 6' 3 (190.5 cm) Current Body Weight: 423 lb 3.2 oz (192 kg) Admission Body Weight: 396 lb 13.3 oz (180 kg) [place] Body Weight: 196 lbs; % [place] Body Weight 215.9 % BMI: 52.9 BMI Categories: Obese Class 3 (BMI 40.0 or greater) Nutrition Diagnosis: Inadequate oral intake related to altered GI function as evidenced by (continued liquid diet; variable PO intakes; need for ONS) Nutrition Interventions: Food and/or Nutrient Delivery: Continue Current Diet, Modify Oral Nutrition Supplement (Provide Ensure Enlive oral supplements with meals. Monitor for diet advancement.) Nutrition Education/Counseling: No recommendation at this time Coordination of Nutrition Care: Continue to monitor while inpatient Goals: Oral intakes to meet 75-100% of estimated nutrition needs. Nutrition Monitoring and Evaluation: Food/Nutrient Intake Outcomes: Diet Advancement/Tolerance, Food and Nutrient Intake, Supplement Intake Physical Signs/Symptoms Outcomes: Biochemical Data, GI Status, Fluid Status or Edema, Hemodynamic Status, Nutrition Focused Physical Findings, Skin, Weight Contact: [phone] Physical Therapy Facility/Department: [address] STE[address]OWN Daily Treatment Note NAME: Kamran Harley : 1950 Date of Service: 09/03/2020 Discharge Recommendations: Patient would benefit from continued therapy after discharge PT Equipment Recommendations Equipment Needed: No Assessment Body structures, Functions, Activity limitations: Decreased functional mobility ;Decreased endurance;Decreased strength Assessment: Pt continues to require significant assistance to perform functional mobility, pt limited by fatigue and decrease endurance. Pt is a high fall risk and would be unsafe to perform functional mobility unassisted. Recomending continued therapy to address deficits. Prognosis: Good Decision Making: Medium Complexity PT Education: Goals;Plan of Care;General Safety;Functional Mobility Training;Home Exercise Program Patient Education: Pt ed on the ex for strenthening. REQUIRES PT FOLLOW UP: Yes Activity Tolerance Activity Tolerance: Patient limited by fatigue;Patient limited by endurance Patient Diagnosis(es): There were no encounter diagnoses. 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 has a past surgical history that includes Colon surgery; ileostomy or jejunostomy; Hernia repair; Gastrostomy tube placement; ERCP (N/A, 08/28/2020); ERCP (08/28/2020); and ERCP (08/28/2020). Restrictions Restrictions/Precautions Restrictions/Precautions: General Precautions, Fall Risk Required Braces or Orthoses?: No Position Activity Restriction Other position/activity restrictions: s/p ERCP DILATION BALLOON (N/A ); ERCP STENT INSERTION; ERCP SPHINCTER/PAPILLOTOMY (08/28/2020) Subjective General Response To Previous Treatment: Patient with no complaints from previous session. Family / Caregiver Present: No Subjective Subjective: RN and pt in agreement for PT treatment; pt seated in bedside recliner upon literary writer's arrival, pt pleasant and cooperative throughout session Pain Screening Patient Currently in Pain: Yes Pain Assessment Pain Assessment: 0-10 Pain Level: 6 Pain Type: Chronic pain Pain Location: Back Pain Orientation: Mid Pain Descriptors: Discomfort Non-Pharmaceutical Pain Intervention(s): Ambulation/Increased Activity;Repositioned Response to Pain Intervention: Patient Satisfied Vital Signs Patient Currently in Pain: Yes Orientation Orientation Overall Orientation Status: Within Functional Limits Cognition Cognition Overall Cognitive Status: WFL Objective Bed mobility Comment: Did not assess- pt seated in bedside recliner upon literary writer's entrance and exit Transfers Bed to Chair: Dependent/Total Comment: unable to assess due to pt being in bedside recliner Ambulation Ambulation?: No (pt non-ambulatory at baseline) More Ambulation?: No Stairs/Curb Stairs?: No Balance Posture: Fair Sitting - Static: Fair;+ Sitting - Dynamic: Fair;- Comments: pt able to sit unsupported in bedside recliner CGA Upper extremity exercises: Bicep curl, shoulder flexion/extension, punches, tricep curl. Reps: x10 BUE, performed with light Tband. Seated LE exercise program: Long Arc Quads, hip abduction/adduction, heel/toe raises, and marches. Reps: x10 BLE Comments: Pt required frequent rest breaks due to desaturations of O2 levels of 87% with RR of 35-38bpm. RN notified and aware. Pt returned to baseline SpO2 94% with RR of 21bpm prior to literary writer's exit. Goals Short term goals Time Frame for Short term goals: 10 visits Short term goal 1: supine to sit with SBA Short term goal 2: sliding board transfer with CGA Short term goal 3: to be independent with bed mobility Short term goal 4: 20 min exercise program x SBA Patient Goals Patient goals : Return home Plan Plan Times per week: 5-6x wk Current Treatment Recommendations: Strengthening, Functional Mobility Training, Safety Education & Training, Endurance Training, Transfer Training, Balance Training Safety Devices Type of devices: Nurse notified, Call light within reach, Left in chair, All fall risk precautions in place Restraints Initially in place: No Therapy Time Individual Concurrent Group Co-treatment Time In 1052 Time Out 1115 Minutes 23 Timed Code Treatment Minutes: 23 Minutes Riya Segal PT Images from the original note were not included. [facility] Office: [phone] Epifanio Bradley DO, Jesus Poe DO, Lobito Hope DO, Lobo Wallace DO, Ibrahima Green MD, Rupinder Gonzalez MD, Josesito Aquino MD, Harvey Dotson MD, Eduardo Kolb MD, Dori Ag MD, Jose R Izaguirre MD, Trina Kay MD, Andrew Amezquita DO, Yumiko Casanova MD, Brody Pizano DO, Nacho Espino MD, Gelacio Epps DO, Main Ascencio MD, Milton James MD, Roxanne Martin MD, Guilherme Duff MD, Jasmyn Howard, PET CAREGIVER, Zara Ferreira PET CAREGIVER, Estephanie Renee PET CAREGIVER, Leana Martinez, SHELLI, Carlos Abdul CNP, Nuris Walter PET CAREGIVER, Keely Tomas PET CAREGIVER, Hemal Waite PET CAREGIVER, Richard Burrows PET CAREGIVER, ZOË Gomez-C, Rita Jacobo DNP, Jeannine Barakat CNP, Lila Baxter PET CAREGIVER, Buffy Mueller PET CAREGIVER, Ingrid Jarrett PET CAREGIVER, Maty Nieves CNP, Faiza Billings, PET CAREGIVER [facility]-PATIENT SERVICE [facility] Progress Note 09/03/2020 2:52 PM Name: Kamran Harley Acct: [id number] Room: 0419/0419-02 Day: 7 Admit Date: 08/27/2020 12:46 PM PCP: Jesus Chopra DO Code Status: Full Code Subjective: C/C: Fatigue and shortness of breath Interval History Status: Improved Patient seen and examined at bedside, continue to improve, now is agreeing to SNF Afebrile overnight. Vitals and labs reviewed. Patient with chronic Lees He is flat in bed Labs and vitals in progress overnight reviewed with the nurse Brief History: Per critical care note Patient originally arrived to the hospital on 618 with chief complaints of fatigue, not feeling well, UTI symptoms and shortness of breath. Transferred to ICU on hospital day 1 as he became hypotensive. Found to have acute ascending cholangitis, choledocholithiasis complicated by E. coli bacteremia. Infectious disease was consulted originally was placed on vancomycin and Zosyn and then transitioned on to meropenem with daily amikacin. GI and general surgery were consulted. Patient underwent an ERCP with stent placement and sphincterotomy on the . General surgery agrees with ERCP with stent placement, sphincterotomy no further percutaneous drainage recommended. Patient's vital signs improved, currently off all pressor support, tolerating 2 L nasal cannula, afebrile, leukocytosis improving. Patient is stable to be transferred to floor unit Review of Systems: Review of Systems Constitutional: Positive for activity change, appetite change and fatigue. Negative for chills, diaphoresis and fever. HENT: Negative for congestion. Eyes: Negative for visual disturbance. Respiratory: Negative for cough, chest tightness and wheezing. Cardiovascular: Negative for chest pain, palpitations and leg swelling. Gastrointestinal: Negative for abdominal pain, blood in stool, constipation, diarrhea, nausea and vomiting. Genitourinary: Negative for difficulty urinating. Neurological: Positive for weakness. Negative for dizziness, light-headedness, numbness and headaches. All other systems reviewed and are negative. Medications: Allergies: Allergies Allergen Reactions Oxytetracycline Penicillins Had a penicillin shot when he was 7 years old and had hives. Tolerated Zosyn 08/27 without problems Suspect reaction was to the shot and not to the penicillin Sulfa Antibiotics Had hives Current Meds: Scheduled Meds: insulin lispro 0-18 Units Subcutaneous TID WC insulin lispro 0-9 Units Subcutaneous Nightly insulin glargine 10 Units Subcutaneous Nightly enoxaparin 40 mg Subcutaneous BID miconazole Topical BID meropenem 1,000 mg Intravenous Q8H sodium chloride flush 5-40 mL Intravenous 2 times per day Continuous Infusions: sodium chloride dextrose PRN Meds: diphenhydrAMINE, guaiFENesin, LORazepam, sodium chloride, acetaminophen OR acetaminophen, magnesium sulfate, ondansetron OR ondansetron, polyethylene glycol, potassium chloride OR potassium alternative oral replacement OR potassium chloride, glucose, dextrose, glucagon (rDNA), dextrose, sodium chloride flush Data: Past Medical History: has a past medical history of Chronic anticoagulation: Coumadin, Coagulopathy (HCC), HLD (hyperlipidemia), HTN (hypertension), Hypomagnesemia, 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 Social History: reports that he has never smoked. He has never used smokeless tobacco. Family History: Family History Problem Relation Age of Onset Diabetes Mother Other Father Vitals: BP (!) 167/80 Pulse 66 Temp 97.9 F (36.6 C) (Oral) Resp 26 Ht 6' 3 (1.905 m) Wt (!) 423 lb 3.2 oz (192 kg) SpO2 99% BMI 52.90 kg/m Temp (24hrs), Av.8 F (36.6 C), Min:97.1 F (36.2 C), Max:98.1 F (36.7 C) Recent Labs 09/02/20 1545 09/02/20 1942 09/03/20 0623 09/03/20 1230 POCGLU 285* 292* 242* 272* I/O (24Hr): Intake/Output Summary (Last 24 hours) at 09/03/2020 1452 Last data filed at 09/03/2020 0608 Gross per 24 hour Intake Output 1300 ml Net -1300 ml Labs: Hematology: Recent Labs 09/01/20 2248 09/02/20 0333 09/03/20 0636 WBC 6.3 4.9 5.0 RBC 4.42 4.11* 4.66 HGB 12.3* 11.4* 12.9* HCT 39.2* 38.9* 42.7 MCV 88.7 94.6 91.6 MCH 27.8 27.7 27.7 MCHC 31.4 29.3 30.2 RDW 16.2* 16.2* 15.6* PLT 215 279 147 MPV 10.7 10.3 11.5 Chemistry: Recent Labs 09/01/20 0317 09/02/20 0333 09/03/20 0636 MG 1.9 1.8 2.0 Recent Labs 09/01/20 0317 09/02/20 0333 09/02/20 0641 09/02/20 1141 09/02/20 1545 09/02/20 1942 09/03/20 0623 09/03/20 0636 09/03/20 1230 PROT 5.2* 5.4* -- -- -- -- -- 5.7* -- LABALBU 2.0* 2.2* -- -- -- -- -- 2.4* -- AST 24 33 -- -- -- -- -- 41* -- ALT 24 29 -- -- -- -- -- 33 -- ALKPHOS 232* 254* -- -- -- -- -- 257* -- BILITOT 2.02* 1.96* -- -- -- -- -- 2.04* -- BILIDIR 1.39* 1.22* -- -- -- -- -- 1.01* -- POCGLU -- -- 247* 287* 285* 292* 242* -- 272* ABG: Lab Results Component Value Date POCPH 7.354 08/29/2020 POCPCO2 40.5 08/29/2020 POCPO2 146.3 08/29/2020 POCHCO3 22.6 08/29/2020 NBEA 3 08/29/2020 PBEA NOT REPORTED 08/29/2020 [id number] NOT REPORTED 08/29/2020 [id number] 99 08/29/2020 FIO2 40.0 08/29/2020 Lab Results Component Value Date/Time SPECIAL NOT REPORTED 08/27/2020 05:16 PM Lab Results Component Value Date/Time CULTURE (A) 08/27/2020 05:16 PM KLEBSIELLA PNEUMONIAE >600531 CFU/ML THIS ORGANISM IS AN EXTENDED-SPECTRUM BETA-LACTAMASE STAFF VETERINARIAN AND RESISTANCE TO THERAPY WITH PENICILLINS, CEPHALOSPORINS AND AZTREONAM IS EXPECTED. THESE ORGANISMS GENERALLY REMAIN SUSCEPTIBLE TO CARBAPENEMS. CONSIDER ID CONSULTATION. Radiology: CT HEAD WO CONTRAST Result Date: 08/28/2020 No acute intracranial abnormality. CT ABDOMEN PELVIS W IV CONTRAST Additional Contrast? None Result Date: 08/27/2020 CTA OF THE CHEST: 1. No pulmonary embolism. 2. Dilation of the main pulmonary artery may signify pulmonary arterial hypertension. 3. No evidence of pneumonia. CT OF THE ABDOMEN AND PELVIS: 1. Edema surrounding the gallbladder, likely indicating acute cholecystitis. While no cholelithiasis is evident by CT, multiple calculi are seen in the common bile duct (choledocholithiasis). 2. Status post colectomy with right lower quadrant ileostomy. 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 No bowel wall thickening or obstruction. 3. Status post left inguinal hernia repair, with evidence of a recurrent shallow fat-containing hernia. No evidence of fat strangulation. US GALLBLADDER RUQ Result Date: 08/29/2020 Markedly limited examination due to patient body habitus and overlying bowel gas. Evaluation for cholelithiasis or acute cholecystitis is limited on this study. As a was inflammatory changes seen about the gallbladder the recent CT, if there is clinical concern for acute cholecystitis, HIDA scan may be considered for further evaluation. Patient's known choledocholithiasis is not well appreciated sonographically. The common bile duct appears normal in caliber measuring 5 mm. Increased echogenicity of the liver parenchyma, which may reflect underlying hepatic steatosis or other chronic liver parenchymal disease. XR CHEST PORTABLE Result Date: 08/30/2020 Improved aeration of lung compared to prior study interval removal of endotracheal tube. Right-sided central venous catheter remains unchanged. Persistent chronic interstitial markings bilaterally with no evidence for effusions. XR CHEST PORTABLE Result Date: 08/29/2020 Supportive tubing projects in normal position. Vascular congestion. Mild bibasilar atelectasis or airspace disease, with improved aeration on the left in the interval. XR CHEST PORTABLE Result Date: 08/28/2020 Possible mild pulmonary vascular congestion CT CHEST PULMONARY EMBOLISM W CONTRAST Result Date: 08/27/2020 CTA OF THE CHEST: 1. No pulmonary embolism. 2. Dilation of the main pulmonary artery may signify pulmonary arterial hypertension. 3. No evidence of pneumonia. CT OF THE ABDOMEN AND PELVIS: 1. Edema surrounding the gallbladder, likely indicating acute cholecystitis. While no cholelithiasis is evident by CT, multiple calculi are seen in the common bile duct (choledocholithiasis). 2. Status post colectomy with right lower quadrant ileostomy. 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 No bowel wall thickening or obstruction. 3. Status post left inguinal hernia repair, with evidence of a recurrent shallow fat-containing hernia. No evidence of fat strangulation. XR ABDOMEN FOR NG/OG/NE TUBE PLACEMENT Result Date: 08/29/2020 Nasogastric tube projects in normal position. Physical Examination: Physical Exam Vitals and nursing note reviewed. Constitutional: General: He is not in acute distress. Appearance: He is morbidly obese. He is ill-appearing. HENT: Head: Normocephalic and atraumatic. Eyes: Conjunctiva/sclera: Conjunctivae normal. Pupils: Pupils are equal, round, and reactive to light. Cardiovascular: Rate and Rhythm: Normal rate and regular rhythm. Heart sounds: No murmur heard. Pulmonary: Effort: Tachypnea and respiratory distress present. No accessory muscle usage. Breath sounds: No stridor. Decreased breath sounds and rales present. No wheezing or rhonchi. Abdominal: General: Bowel sounds are normal. There is no distension. Palpations: Abdomen is soft. Abdomen is not rigid. Tenderness: There is no abdominal tenderness. There is no guarding. Musculoskeletal: General: No tenderness. Skin: General: Skin is warm and dry. Findings: No erythema, lesion or rash. Neurological: Mental Status: He is alert and oriented to person, place, and time. Cranial Nerves: No cranial nerve deficit. Motor: No seizure activity. Psychiatric: Speech: Speech normal. Behavior: Behavior normal. Behavior is cooperative. Assessment: Hospital Problems Last Modified POA * (Principal) Gram negative septicemia (HCC) 08/30/2020 Yes Elevated liver enzymes 08/27/2020 Yes Diabetes mellitus (HCC) 08/27/[address] ([facility]) 08/27/2020 Yes Paroxysmal A-fib ([facility]) 08/27/2020 Yes Transaminasemia 08/27/2020 Yes Panniculitis 08/27/2020 Yes Supratherapeutic INR 08/27/2020 Yes Hypomagnesemia 08/27/2020 Yes Class 3 severe obesity due to excess calories with serious comorbidity and body mass index (BMI) of 50.0 to 59.9 in adult ([facility]) 08/29/2020 Yes HTN (hypertension) 08/27/2020 Yes Coagulopathy (HCC) 08/27/2020 Yes Chronic anticoagulation: Coumadin 08/27/2020 Yes Sepsis (HCC) 08/27/2020 Yes History of DVT (deep vein thrombosis) 08/27/2020 Yes Acute encephalopathy 08/28/2020 Yes Acute cholangitis 08/30/2020 Yes Complicated UTI (urinary tract infection) 08/28/2020 Yes Ascending cholangitis 08/29/2020 Yes Morbid obesity (HCC) 08/30/2020 Yes Plan: -Give another dose of Lasix 40 IV today -BiPAP at night time -Stopped fluids - Another dose of lasix today -Continue supplemental oxygen -Continue antibiotic. -Continue to hold warfarin. -Per GI warfarin to be held for 7 days, to be restarted 09/04 -Continue blood pressure and glycemic control -Continue other chronic meds for his chronic conditions.. -Appreciate GI and ID recommendations -Check electrolytes and replace as needed. -DVT and GI prophylaxis -Discussed with the patient -Place midline for IV abx -PT/OT -DC planning - Needs sleep study as OP , OHS -Will discharge when arrangements complete and ok with other services. Follow-up with PCP in one week, Jesus Chopra DO Notify PCP of discharge Med rec done Scripts added [place] signed 30+ minutes spent Harvey Dotson MD 09/03/2020 2:52 PM Images from the original note were not included. 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, right ileostomy Inguinal hernia repair with herniated fat no strangulation Allergy to penicillin 7 years old had a shot, most likely reactive to the shots but not to the penicillin product-tolerated Zosyn 08/27 Discussion / summary of stay / plan of care Presents with septic shock and acute encephalopathy, progressing during his admission, gram-negative septicemia seems to be related to a complicated UTI but also to an obstructive cholangitis Patient has progressed into severe sepsis during his admission and hence he is at risk to develop multiorgan failure He did have a history of UTIs, multiple antibiotic intake in the past and hence he is at risk for MDRO gram-negative Recommendations Stop the vancomycin Stop Zosyn 08/28 08/28 meropenem to better address the cholangitis/ bacteremia / ESBL UTI Plan 10 days AB till 09/06 DC planning - chart reconsiled Infection Control Recommendations [place] Precautions Antimicrobial Stewardship Recommendations Simplification of therapy Targeted therapy Per Kg dosing Coordination ofOutpatient Care: Estimated Length of IV antimicrobials: Patient will need Midline / picc Catheter Insertion: Patient will need SNF: Patient will need outpatient wound care: History of Present Illness: Initial history: Kamran Harley is a 70 y.o.-year-old male obese phone straight cath, states that 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 He feels he has had some dysuria and is concerned he might be having a UTI. Came to the ER he was having fever, blood cultures taken and he was sent to the floor Today he is getting short of breath lethargic, tachycardic, hypotensive. He was started on vancomycin and Zosyn, since blood cultures are showing gram-negative rods Urine culture remains pending gram-negative rods CT of the abdomen showed normal kidneys, gallbladder showed multiple stones with some obstruction, suspect there is for ascending cholangitis, there is edema around the gallbladder as well GI contemplating ERCP once more stable Patient being transferred to the ICU 08/28: Discussed with GI, they will defer ERCP till he stabilizes, agree with cholecystostomy in the meantime to decompress Patient sleepy arousable very appropriate, discussed with him his allergy to penicillin as stated in the impression section. He tolerated Zosyn so far without any hives He does have a tenderness over the right upper quadrant Multiple over both knees Lees with hemal urine but no cloudiness Interval changes Patient Vitals for the past 8 hrs: BP Temp Temp src Pulse Resp SpO2 09/02/20 1152 129/75 98 F (36.7 C) Oral 91 25 99 % 09/02/20 0734 (!) 152/67 98.7 F (37.1 C) Temporal 76 30 94 % post ERCP 08/28 Stones extracted and Biliary sphincterotomy done Cholecystostomy could not be done 05/28 09/02: Leukocytosis resolved- WBC 4.9 Creatinine improved to 0.77 Lactate 1.2 No fevers or chills. On room air saturating 96%, no SOB. Abdomen soft and non tender. No diarrhea 08/27 BC1: E.coli-esbl neg, Klebsiella + ESBL 08/27 BC2: E.coli- esbl neg, S Ceftriaxone Urine + ESBL klebsiella most likely originating from the common bile duct Repeat blood cultures pending LFTs trending down- will need a repeat EGD/ERCP for removal of stent in 4 to 6 weeks with . Discharge planning Summary of relevant labs: Labs: WBC 15 16 - 18 - 11 - 9.2- 5.6 Creatinine 0.75 - 1.28- 0.77 AST 49 - 56- 24 AST 50 - 42- 24 Bilirubin 5.98- 8.87- 3.35- 2.4- 2.02 Micro: Blood culture 08/27 gram-negative rods next 2 urine culture 08/27 kLEB esbl MRSA nasal + swab Imaging: CXR Mild bibasilar atelectasis or airspace disease, with improved aeration on the left in the interval. US GB 08/28 Markedly limited examination due to patient body habitus and overlying bowel gas. Evaluation for cholelithiasis or acute cholecystitis is limited on this study. As a was inflammatory changes seen about the gallbladder the recent CT, if there is clinical concern for acute cholecystitis, HIDA scan may be considered for further evaluation. Patient's known choledocholithiasis is not well appreciated sonographically. The common bile duct appears normal in caliber measuring 5 mm. Increased echogenicity of the liver parenchyma, which may reflect underlying hepatic steatosis or other chronic liver parenchymal disease ERCP 08/28 - PROCEDURES PERFORMED: 1. Transoral Endoscopic retrograde cholangiopancreatography (ERCP). 2. Cholangiogram 3. Biliary sphincterotomy 4. Balloon sweeps with extraction of stone and pus 5. Placement of 10 F x 7 cm plastic biliary stent 6. Fluoroscopy POSTPROCEDURE DIAGNOSIS: CBD stones and sludge Retained gastric contents CT of the head no acute abnormality 08/28 CT chest 08/27 no pulmonary emboli, dilatation of the main pulmonary artery that might reflect pulmonary arterial hypertension, no pneumonia H with edema surrounding the gallbladder suggesting acute cholecystitis with no cholelithiasis on CT but multiple stones are seen in the common bile duct Right lower quadrant ileostomy with post colectomy Redundant loop of ileum in the parastomal hernia No bowel thickening Post left inguinal hernia repair, with fat-containing persistent hernia but no strangulation Kidneys unremarkable I have personally reviewed the past medical history, past surgical history, medications, social history, and family history, and I haveupdated the database accordingly. Allergies: Oxytetracycline, Penicillins, and Sulfa antibiotics Review of Systems: Review of Systems Constitutional: Positive for fatigue. Negative for activity change, appetite change and fever. HENT: Negative for congestion, drooling and sore throat. Eyes: Positive for discharge. Negative for itching and visual disturbance. Respiratory: Negative for apnea, cough and shortness of breath. Cardiovascular: Negative for chest pain. Gastrointestinal: Negative for abdominal distention, abdominal pain, diarrhea, nausea and vomiting. Endocrine: Negative for heat intolerance. Genitourinary: Negative for difficulty urinating, dysuria and hematuria. Musculoskeletal: Negative for arthralgias. Skin: Negative for color change and rash. Allergic/Immunologic: Negative for immunocompromised state. Neurological: Negative for dizziness and speech difficulty. Hematological: Does not bruise/bleed easily. Psychiatric/Behavioral: Negative for agitation, behavioral problems, confusion and decreased concentration. Physical Examination : Physical Exam Constitutional: General: He is not in acute distress. Appearance: He is obese. He is not ill-appearing or toxic-appearing. Comments: arousable HENT: Head: Normocephalic and atraumatic. Nose: Nose normal. No congestion or rhinorrhea. Mouth/Throat: Mouth: Mucous membranes are moist. Eyes: General: No scleral icterus. Right eye: No discharge. Left eye: No discharge. Conjunctiva/sclera: Conjunctivae normal. Cardiovascular: Rate and Rhythm: Normal rate and regular rhythm. Heart sounds: Normal heart sounds. No murmur heard. No gallop. Pulmonary: Effort: No respiratory distress. Breath sounds: Normal breath sounds. No stridor. No wheezing. Abdominal: General: There is no distension. Palpations: Abdomen is soft. Tenderness: There is no abdominal tenderness. There is no guarding. Comments: Right ileostomy with herniated loops Genitourinary: Comments: Urine hemal Musculoskeletal: General: No swelling, tenderness or signs of injury. Cervical back: Normal range of motion and neck supple. No tenderness. Skin: General: Skin is warm. Coloration: Skin is not jaundiced or pale. Findings: No erythema or rash. Neurological: General: No focal deficit present. Mental Status: He is oriented to person, place, and time. Cranial Nerves: No cranial nerve deficit. Psychiatric: Mood and Affect: Mood normal. Behavior: Behavior normal. Thought Content: Thought content normal. Past Medical History: Past Medical History: Diagnosis Date Chronic anticoagulation: Coumadin Coagulopathy (HCC) HLD (hyperlipidemia) HTN (hypertension) Hypomagnesemia 08/27/[address] (HCC) Morbid obesity (HCC) Marni syndrome Paroxysmal atrial fibrillation (HCC) Type 2 diabetes mellitus (HCC) Past Surgical History: Past Surgical History: Procedure Laterality Date COLON SURGERY Subtotal colectomy ERCP N/A 08/28/2020 ERCP DILATION BALLOON performed by Alexis Ramon MD at [facility] OR ERCP 08/28/2020 ERCP STENT INSERTION performed by Alexis Ramon MD at [facility] OR ERCP 08/28/2020 ERCP SPHINCTER/PAPILLOTOMY performed by Alexis Ramon MD at [facility] OR GASTROSTOMY TUBE PLACEMENT HERNIA REPAIR ILEOSTOMY OR JEJUNOSTOMY Medications: enoxaparin 40 mg Subcutaneous BID miconazole Topical BID meropenem 1,000 mg Intravenous Q8H insulin lispro 0-12 Units Subcutaneous 4x Daily AC & HS sodium chloride flush 5-40 mL Intravenous 2 times per day Social History: Social History Socioeconomic History Marital status: Unknown Spouse name: Not on file Number of children: Not on file Years of education: Not on file Highest education level: Not on file Occupational History Not on file Tobacco Use Smoking status: Never Smoker Smokeless tobacco: Never Used Substance and Sexual Activity Alcohol use: Not on file Drug use: Not on file Sexual activity: Not on file Other Topics Concern Not on file Social History Narrative Not on file Social Determinants of Health Financial Resource Strain: Difficulty of Paying Living Expenses: Food Insecurity: Worried About Running Out of Food in the Last Year: Ran Out of Food in the Last Year: Transportation Needs: Lack of Transportation (Medical): Lack of Transportation (Non-Medical): Physical Activity: Days of Exercise per Week: Minutes of Exercise per Session: Stress: Feeling of Stress : Social Connections: Frequency of Communication with Friends and Family: Frequency of Social Gatherings with Friends and Family: Attends [employer] Services: Active Member of Clubs or Organizations: Attends Club or Organization Meetings: Marital Status: Intimate Partner Violence: Fear of Current or Ex-Partner: Emotionally Abused: Physically Abused: Sexually Abused: Family History: Family History Problem Relation Age of Onset Diabetes Mother Other Father Medical Decision Making: I have independently reviewed/ordered the following labs: CBC with Differential: Recent Labs 09/01/20 2248 09/02/20 0333 WBC 6.3 4.9 HGB 12.3* 11.4* HCT 39.2* 38.9* PLT 215 279 BMP: Recent Labs 08/31/20 0507 09/01/20 0317 09/02/20 0333 NA 137 -- -- K 4.2 -- -- CL 107 -- -- CO2 20 -- -- BUN 21 -- -- CREATININE 0.77 -- -- MG 2.1 1.9 1.8 Hepatic Function Panel: Recent Labs 09/01/207 09/02/20 0333 PROT 5.2* 5.4* LABALBU 2.0* 2.2* BILIDIR 1.39* 1.22* IBILI 0.63 0.74 BILITOT 2.02* 1.96* ALKPHOS 232* 254* ALT 24 29 AST 24 33 No results for input(s): RPR in the last 72 hours. No results for input(s): HIV in the last 72 hours. No results for input(s): BC in the last 72 hours. Lab Results Component Value Date CREATININE 0.77 08/31/2020 GLUCOSE 235 08/31/2020 Detailed results: Thank you for allowing us to participate in the care of this patient.Please call with questions. This note is created with the assistance of a speech recognition program. While intending to generate adocument that actually reflects the content of the visit, the document can still have some errors including those of syntax and sound a like substitutions which may escape proof reading. It such instances, actual meaningcan be extrapolated by contextual diversion. Georgia Pacheco Office: [facility] / office [phone] I have discussed the care of the patient, including pertinent history and exam findings, with the resident. I have seen and examined the patient and the [place] elements of all parts of the encounter have been performed by me. I agree with the assessment, plan and orders as documented by the resident. Samy Russell, Infectious Diseases Occupational Therapy Facility/Department: [address] [place] Daily Treatment Note NAME: Kamran Harley : 1950 Date of Service: 09/02/2020 Discharge Recommendations: Patient would benefit from continued therapy after discharge in order to increase pt strength, balance and independence. Assessment Performance deficits / Impairments: Decreased functional mobility ;Decreased endurance;Decreased ADL status;Decreased posture;Decreased balance;Decreased safe awareness;Decreased high-level IADLs;Decreased cognition Prognosis: Fair OT Education: OT Role;Transfer Training;Energy Conservation Patient Education: purpose of OT; proper hand and foot placement; deep breathing Barriers to Learning: pt demo F carry over REQUIRES OT FOLLOW UP: Yes Activity Tolerance Activity Tolerance: Patient limited by fatigue Safety Devices Safety Devices in place: Yes Type of devices: Patient at risk for falls;Left in chair;Chair alarm in place;Call light within reach;Nurse notified Restraints Initially in place: No Patient Diagnosis(es): There were no encounter diagnoses. 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 has a past surgical history that includes Colon surgery; ileostomy or jejunostomy; Hernia repair; Gastrostomy tube placement; ERCP (N/A, 08/28/2020); ERCP (08/28/2020); and ERCP (08/28/2020). Restrictions Restrictions/Precautions Restrictions/Precautions: General Precautions, Fall Risk Required Braces or Orthoses?: No Position Activity Restriction Other position/activity restrictions: s/p ERCP DILATION BALLOON (N/A ); ERCP STENT INSERTION; ERCP SPHINCTER/PAPILLOTOMY (08/28/2020) Subjective General Chart Reviewed: Yes Patient assessed for rehabilitation services?: Yes Family / Caregiver Present: No Diagnosis: Gram negative septicemia General Comment Comments: RN and pt agreeable to therapy Pain Assessment Pain Assessment: 0-10 Pain Level: 0 Vital Signs Patient Currently in Pain: Denies Orientation Orientation Overall Orientation Status: Within Functional Limits Objective ADL Grooming: Modified independent ;Setup (face washing completed seated supported in chair) Toileting: Maximum assistance;Setup (personal hygiene completed rolling in bed) Additional Comments: Further ADLs not attempted sec to pt increased fatigue. Balance Sitting Balance: Stand by assistance (Pt tolerated approx 3-4 min seated unsupported in chair) Standing Balance: Unable to assess(comment) Standing Balance Comment: pt slideboards at baseline Bed mobility Rolling to Left: 2 Person assistance;Moderate assistance Rolling to Right: Moderate assistance;2 Person assistance Comment: multiple rolls completed this day to adjust pt bedding and for personal hygiene Cognition Overall Cognitive Status: Exceptions Arousal/Alertness: Appropriate responses to stimuli Following Commands: Follows multistep commands with repitition;Follows multistep commands with increased time Attention Span: Attends with cues to redirect Safety Judgement: Decreased awareness of need for assistance;Decreased awareness of need for safety Problem Solving: Decreased awareness of errors;Assistance required to identify errors made;Assistance required to correct errors made Insights: Decreased awareness of deficits Initiation: Requires cues for some Sequencing: Requires cues for some Pt limited throughout session per increased fatigue and high BMI. Jatinder lift utilized to transport pt to chair for sitting balance in order to increase pt safety. Pt able to scoot buttocks back in chair utilizing BUE at arm rest and BLE off of ROSADO BLE. At session end pt seated in chair with KITCHEN SUPERVISOR present to complete session. Plan Plan Times per week: 3-4 x/wk Current Treatment Recommendations: Patient/Caregiver Education & Training, Home Management Training, Equipment Evaluation, Education, & procurement, Endurance Training, Pain Management, Safety Education & Training, Self-Care / ADL, Wheelchair Mobility Training, Positioning Cont POC Goals Short term goals Time Frame for Short term goals: By discharge, pt will; Short term goal 1: demo all bed mobility maneuvers mod A with use of appropriate AD's to decrease risk of pressure injuries Short term goal 2: demo sitting tolerance EOB SBA x 20 minutes to improve positioning for participation in seated ADL tasks Short term goal 3: demo UB ADLs and grooming tasks mod I Short term goal 4: demo LB ADLs and toileting tasks mod A with use of AE and appropriate DME PRN Short term goal 5: demo functional lateral transfer with use of transfer board max A to decrease caregiver burden of care Short term goal 6: demo good safety during functional interventions with < 2 VC's Therapy Time Individual Concurrent Group Co-treatment Time In 928 Time Out 954 Minutes 26 Timed Code Treatment Minutes: 8 Minutes (co tx with KITCHEN SUPERVISOR; dependent skylift) [facility] Facility/Department: [address] STE[address]OWN Daily Treatment Note NAME: Kamran Harley : 1950 Date of Service: 09/02/2020 Discharge Recommendations: Patient would benefit from continued therapy after discharge Assessment Body structures, Functions, Activity limitations: Decreased functional mobility ;Decreased endurance;Decreased strength Assessment: The pt is overall MOD-MAX A x2 persons for bed mobility. Performed the.ex while seated in chair , limited by fatigue and decrease endurance. recomending continued therapy to address deficits . Prognosis: Good PT Education: Goals;Plan of Care;General Safety;Functional Mobility Training;Home Exercise Program Patient Education: Pt ed on the ex for strenthening. REQUIRES PT FOLLOW UP: Yes Activity Tolerance Activity Tolerance: Patient limited by fatigue;Patient limited by endurance Patient Diagnosis(es): There were no encounter diagnoses. 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 has a past surgical history that includes Colon surgery; ileostomy or jejunostomy; Hernia repair; Gastrostomy tube placement; ERCP (N/A, 08/28/2020); ERCP (08/28/2020); and ERCP (08/28/2020). Restrictions Restrictions/Precautions Restrictions/Precautions: General Precautions, Fall Risk Required Braces or Orthoses?: No Position Activity Restriction Other position/activity restrictions: s/p ERCP DILATION BALLOON (N/A ); ERCP STENT INSERTION; ERCP SPHINCTER/PAPILLOTOMY (08/28/2020) Subjective General Chart Reviewed: Yes Response To Previous Treatment: Patient with no complaints from previous session. Family / Caregiver Present: No Subjective Subjective: RN and pt agreeable to PT . Pt alert in bed upon arrival. Pleasant and cooperative t/o Pain Screening Patient Currently in Pain: Denies Vital Signs Patient Currently in Pain: Denies Orientation Orientation Overall Orientation Status: Within Normal Limits Cognition Objective Bed mobility Rolling to Left: Maximum assistance Rolling to Right: Maximum assistance Comment: rolling performed for pericare .increase effort noted. Transfers Bed to Chair: Dependent/Total (Pt Jatinder lifted to recliner.) Balance Sitting - Static: Fair;- Sitting - Dynamic: Fair;- Exercises Comments: Seated LE exercise program: Long Arc Quads, hip abduction/adduction, heel/toe raises, and marches. Reps: x10, Seated in chair, rest as needed Goals Short term goals Time Frame for Short term goals: 10 visits Short term goal 1: supine to sit with SBA Short term goal 2: sliding board transfer with CGA Short term goal 3: to be independent with bed mobility Short term goal 4: 20 min exercise program x SBA Patient Goals Patient goals : Return home Plan Plan Times per week: 5-6x wk Current Treatment Recommendations: Strengthening, Functional Mobility Training, Safety Education & Training, Endurance Training, Transfer Training, Balance Training Safety Devices Type of devices: Nurse notified, Call light within reach, Left in chair, Gait belt, All fall risk precautions in place Therapy Time Individual Concurrent Group Co-treatment Time In 923 Time Out 0959 Minutes 35 Timed Code Treatment Minutes: 23 Minutes Danyell Burnett PTA Images from the original note were not included. [facility] Office: [phone] Epifanio Bradley DO, Jesus Poe DO, Lobito Hope DO, Lobo Wallace DO, Ibrahima Green MD, Rupinder Gonzalez MD, Josesito Aquino MD, Harvey Dotson MD, Eduardo Kolb MD, Dori Ag MD, Jose R Izaguirre MD, Trina Kay MD, Andrew Amezquita DO, Yumiko Casanova MD, Brody Pizano DO, Nacho Espino MD, Gelacio Epps DO, Main Ascencio MD, Milton James MD, Roxanne Martin MD, Guilherme Duff MD, Jasmyn Howard, PET CAREGIVER, Zara Ferreira, PET CAREGIVER, Estephanie Renee, PET CAREGIVER, Leana Martinez, CHECKER LOADER, Carlos Abdul, PET CAREGIVER, Nuris Walter, PET CAREGIVER, Keely Tomas, PET CAREGIVER, Hemal Waite, PET CAREGIVER, Richard Burrows, PET CAREGIVER, Tye Castro PA-C, Rita Jacobo, KIRA, Jeannine Barakat, PET CAREGIVER, Lila Baxter, PET CAREGIVER, Buffy Mueller, PET CAREGIVER, Ingrid Jarrett, PET CAREGIVER, Maty Nieves, PET CAREGIVER, Faiza Billings, PET CAREGIVER [facility]-PATIENT SERVICE [facility] Progress Note 09/02/2020 2:47 PM Name: Kamran Harley Acct: [id number] Room: [facility]0419-02 Day: 6 Admit Date: 08/27/2020 12:46 PM PCP: Jesus Chopra DO Code Status: Full Code Subjective: C/C: Fatigue and shortness of breath Interval History Status: Improved Patient seen and examined at bedside, continue to improve, now is agreeing to SNF Afebrile overnight. Vitals and labs reviewed. Patient with chronic Lees He is flat in bed Labs and vitals in progress overnight reviewed with the nurse Brief History: Per critical care note Patient originally arrived to the hospital on 618 with chief complaints of fatigue, not feeling well, UTI symptoms and shortness of breath. Transferred to ICU on hospital day 1 as he became hypotensive. Found to have acute ascending cholangitis, choledocholithiasis complicated by E. coli bacteremia. Infectious disease was consulted originally was placed on vancomycin and Zosyn and then transitioned on 619 to meropenem with daily amikacin. GI and general surgery were consulted. Patient underwent an ERCP with stent placement and sphincterotomy on the . General surgery agrees with ERCP with stent placement, sphincterotomy no further percutaneous drainage recommended. Patient's vital signs improved, currently off all pressor support, tolerating 2 L nasal cannula, afebrile, leukocytosis improving. Patient is stable to be transferred to floor unit Review of Systems: Review of Systems Constitutional: Positive for activity change, appetite change and fatigue. Negative for chills, diaphoresis and fever. HENT: Negative for congestion. Eyes: Negative for visual disturbance. Respiratory: Negative for cough, chest tightness and wheezing. Cardiovascular: Negative for chest pain, palpitations and leg swelling. Gastrointestinal: Negative for abdominal pain, blood in stool, constipation, diarrhea, nausea and vomiting. Genitourinary: Negative for difficulty urinating. Neurological: Positive for weakness. Negative for dizziness, light-headedness, numbness and headaches. All other systems reviewed and are negative. Medications: Allergies: Allergies Allergen Reactions Oxytetracycline Penicillins Had a penicillin shot when he was 7 years old and had hives. Tolerated Zosyn 08/27 without problems Suspect reaction was to the shot and not to the penicillin Sulfa Antibiotics Had hives Current Meds: Scheduled Meds: insulin lispro 0-18 Units Subcutaneous TID WC insulin lispro 0-9 Units Subcutaneous Nightly enoxaparin 40 mg Subcutaneous BID miconazole Topical BID meropenem 1,000 mg Intravenous Q8H sodium chloride flush 5-40 mL Intravenous 2 times per day Continuous Infusions: sodium chloride dextrose PRN Meds: guaiFENesin, diphenhydrAMINE, LORazepam, sodium chloride, acetaminophen OR acetaminophen, magnesium sulfate, ondansetron OR ondansetron, polyethylene glycol, potassium chloride OR potassium alternative oral replacement OR potassium chloride, glucose, dextrose, glucagon (rDNA), dextrose, sodium chloride flush Data: Past Medical History: has a past medical history of Chronic anticoagulation: Coumadin, Coagulopathy (HCC), HLD (hyperlipidemia), HTN (hypertension), Hypomagnesemia, Ileostomy in place (HCC), Morbid obesity (HCC), Marni syndrome, Paroxysmal atrial fibrillation (HCC), and Type 2 diabetes mellitus (HCC). Social History: reports that he has never smoked. He has never used smokeless tobacco. Family History: Family History Problem Relation Age of Onset Diabetes Mother Other Father Vitals: BP 129/75 Pulse 91 Temp 98 F (36.7 C) (Oral) Resp 25 Ht 6' 3 (1.905 m) Wt (!) 401 lb (181.9 kg) SpO2 99% BMI 50.12 kg/m Temp (24hrs), Av.1 F (36.7 C), Min:97.6 F (36.4 C), Max:98.7 F (37.1 C) Recent Labs 09/01/20 16509/01/20200709/02/20 0641 09/02/20 1141 POCGLU 280* 268* 247* 287* I/O (24Hr): Intake/Output Summary (Last 24 hours) at 09/02/2020 1447 Last data filed at 09/02/2020 1300 Gross per 24 hour Intake 1490.13 ml Output 5225 ml Net -3734.87 ml Labs: Hematology: Recent Labs 09/01/2031609/01/208 09/02/20 0333 WBC 5.6 6.3 4.9 RBC 4.24 4.42 4.11* HGB 11.6* 12.3* 11.4* HCT 39.3* 39.2* 38.9* MCV 92.7 88.7 94.6 MCH 27.4 27.8 27.7 MCHC 29.5 31.4 29.3 RDW 16.8* 16.2* 16.2* PLT 164 215 279 MPV 10.5 10.7 10.3 Chemistry: Recent Labs 08/31/2050609/01/2031609/02/20 0333 NA 137 -- -- K 4.2 -- -- CL 107 -- -- CO2 20 -- -- GLUCOSE 235* -- -- BUN 21 -- -- CREATININE 0.77 -- -- MG 2.1 1.9 1.8 ANIONGAP 10 -- -- LABGLOM >60 -- -- GFRAA >60 -- -- CALCIUM 8.0* -- -- Recent Labs 08/31/20 0507 09/01/2031609/01/20 0643 09/01/20 1219 09/01/20 1652 09/01/20200709/02/20 0333 09/02/20 0641 09/02/20 1141 PROT 5.5* 5.6* 5.2* -- -- -- -- 5.4* -- -- LABALBU 2.2* 2.2* 2.0* -- -- -- -- 2.2* -- -- AST 32 35 24 -- -- -- -- 33 -- -- ALT 28 29 24 -- -- -- -- 29 -- -- ALKPHOS 251* 270* 232* -- -- -- -- 254* -- -- BILITOT 2.39* 2.40* 2.02* -- -- -- -- 1.96* -- -- BILIDIR 1.74* 1.39* -- -- -- -- 1.22* -- -- POCGLU -- -- 222* 347* 280* 268* -- 247* 287* ABG: Lab Results Component Value Date POCPH 7.354 08/29/2020 POCPCO2 40.5 08/29/2020 POCPO2 146.3 08/29/2020 POCHCO3 22.6 08/29/2020 NBEA 3 08/29/2020 PBEA NOT REPORTED 08/29/2020 AFU2PAQ NOT REPORTED 08/29/2020 [id number] 99 08/29/2020 FIO2 40.0 08/29/2020 Lab Results Component Value Date/Time SPECIAL NOT REPORTED 08/27/2020 05:16 PM Lab Results Component Value Date/Time CULTURE (A) 08/27/2020 05:16 PM KLEBSIELLA PNEUMONIAE >296959 CFU/ML THIS ORGANISM IS AN EXTENDED-SPECTRUM BETA-LACTAMASE STAFF VETERINARIAN AND RESISTANCE TO THERAPY WITH PENICILLINS, CEPHALOSPORINS AND AZTREONAM IS EXPECTED. THESE ORGANISMS GENERALLY REMAIN SUSCEPTIBLE TO CARBAPENEMS. CONSIDER ID CONSULTATION. Radiology: CT HEAD WO CONTRAST Result Date: 08/28/2020 No acute intracranial abnormality. CT ABDOMEN PELVIS W IV CONTRAST Additional Contrast? None Result Date: 08/27/2020 CTA OF THE CHEST: 1. No pulmonary embolism. 2. Dilation of the main pulmonary artery may signify pulmonary arterial hypertension. 3. No evidence of pneumonia. CT OF THE ABDOMEN AND PELVIS: 1. Edema surrounding the gallbladder, likely indicating acute cholecystitis. While no cholelithiasis is evident by CT, multiple calculi are seen in the common bile duct (choledocholithiasis). 2. Status post colectomy with right lower quadrant ileostomy. 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 No bowel wall thickening or obstruction. 3. Status post left inguinal hernia repair, with evidence of a recurrent shallow fat-containing hernia. No evidence of fat strangulation. US GALLBLADDER RUQ Result Date: 08/29/2020 Markedly limited examination due to patient body habitus and overlying bowel gas. Evaluation for cholelithiasis or acute cholecystitis is limited on this study. As a was inflammatory changes seen about the gallbladder the recent CT, if there is clinical concern for acute cholecystitis, HIDA scan may be considered for further evaluation. Patient's known choledocholithiasis is not well appreciated sonographically. The common bile duct appears normal in caliber measuring 5 mm. Increased echogenicity of the liver parenchyma, which may reflect underlying hepatic steatosis or other chronic liver parenchymal disease. XR CHEST PORTABLE Result Date: 08/30/2020 Improved aeration of lung compared to prior study interval removal of endotracheal tube. Right-sided central venous catheter remains unchanged. Persistent chronic interstitial markings bilaterally with no evidence for effusions. XR CHEST PORTABLE Result Date: 08/29/2020 Supportive tubing projects in normal position. Vascular congestion. Mild bibasilar atelectasis or airspace disease, with improved aeration on the left in the interval. XR CHEST PORTABLE Result Date: 08/28/2020 Possible mild pulmonary vascular congestion CT CHEST PULMONARY EMBOLISM W CONTRAST Result Date: 08/27/2020 CTA OF THE CHEST: 1. No pulmonary embolism. 2. Dilation of the main pulmonary artery may signify pulmonary arterial hypertension. 3. No evidence of pneumonia. CT OF THE ABDOMEN AND PELVIS: 1. Edema surrounding the gallbladder, likely indicating acute cholecystitis. While no cholelithiasis is evident by CT, multiple calculi are seen in the common bile duct (choledocholithiasis). 2. Status post colectomy with right lower quadrant ileostomy. 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 No bowel wall thickening or obstruction. 3. Status post left inguinal hernia repair, with evidence of a recurrent shallow fat-containing hernia. No evidence of fat strangulation. XR ABDOMEN FOR NG/OG/NE TUBE PLACEMENT Result Date: 08/29/2020 Nasogastric tube projects in normal position. Physical Examination: Physical Exam Vitals and nursing note reviewed. Constitutional: General: He is not in acute distress. Appearance: He is morbidly obese. He is ill-appearing. HENT: Head: Normocephalic and atraumatic. Eyes: Conjunctiva/sclera: Conjunctivae normal. Pupils: Pupils are equal, round, and reactive to light. Cardiovascular: Rate and Rhythm: Normal rate and regular rhythm. Heart sounds: No murmur heard. Pulmonary: Effort: Tachypnea and respiratory distress present. No accessory muscle usage. Breath sounds: No stridor. Decreased breath sounds and rales present. No wheezing or rhonchi. Abdominal: General: Bowel sounds are normal. There is no distension. Palpations: Abdomen is soft. Abdomen is not rigid. Tenderness: There is no abdominal tenderness. There is no guarding. Musculoskeletal: General: No tenderness. Skin: General: Skin is warm and dry. Findings: No erythema, lesion or rash. Neurological: Mental Status: He is alert and oriented to person, place, and time. Cranial Nerves: No cranial nerve deficit. Motor: No seizure activity. Psychiatric: Speech: Speech normal. Behavior: Behavior normal. Behavior is cooperative. Assessment: Hospital Problems Last Modified POA * (Principal) Gram negative septicemia ([facility]) 08/30/2020 Yes Elevated liver enzymes 08/27/2020 Yes Diabetes mellitus ([facility]) 08/27/[address] ([facility]) 08/27/2020 Yes Paroxysmal A-fib ([facility]) 08/27/2020 Yes Transaminasemia 08/27/2020 Yes Panniculitis 08/27/2020 Yes Supratherapeutic INR 08/27/2020 Yes Hypomagnesemia 08/27/2020 Yes Class 3 severe obesity due to excess calories with serious comorbidity and body mass index (BMI) of 50.0 to 59.9 in adult ([facility]) 08/29/2020 Yes HTN (hypertension) 08/27/2020 Yes Coagulopathy ([facility]) 08/27/2020 Yes Chronic anticoagulation: Coumadin 08/27/2020 Yes Sepsis (HCC) 08/27/2020 Yes History of DVT (deep vein thrombosis) 08/27/2020 Yes Acute encephalopathy 08/28/2020 Yes Acute cholangitis 08/30/2020 Yes Complicated UTI (urinary tract infection) 08/28/2020 Yes Ascending cholangitis 08/29/2020 Yes Morbid obesity (HCC) 08/30/2020 Yes Plan: -Give another dose of Lasix 40 IV today -BiPAP at night time -Stopped fluids - Another dose of lasix today -Continue supplemental oxygen -Continue antibiotic. -Continue to hold warfarin. -Per GI warfarin to be held for 7 days, to be restarted 09/04 -Continue blood pressure and glycemic control -Continue other chronic meds for his chronic conditions.. -Appreciate GI and ID recommendations -Check electrolytes and replace as needed. -DVT and GI prophylaxis -Discussed with the patient -Place midline for IV abx -PT/OT -DC planning - Needs sleep study as OP , OHS -Will discharge when arrangements complete and ok with other services. Follow-up with PCP in one week, Jesus Chopra DO Notify PCP of discharge Med rec done Scripts added ENID signed 30+ minutes spent Harvey Dotson MD 09/02/2020 2:47 PM PULMONARY & CRITICAL CARE MEDICINE PROGRESS NOTE Patient: Kamran Harley Admit date: 08/27/2020 Primary Care Physician: Jesus Chopra DO Consulting Physician: Harvey Dotson MD CODE Status: Full Code LOS: 6 SUBJECTIVE BRIEF HOSPITAL COURSE: The patient is a 70 y.o. male morbidly obese, history of paroxysmal A. fib, HTN/HLD, history of DVTs on Coumadin, presenting with generalized discomfort nausea and chills. Initial labs revealed a significant supratherapeutic INR of 12.[address] scan of the abdomen and pelvis showing evidence of acute cholecystitis with multiple CBD stones. Initially was tachycardic and hypotensive and transferred to ICU. 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 Subsequently underwent ERCP on the with stone and pus extraction with biliary stent placement. Concurrently on meropenem and transferred out of the ICU. History of undiagnosed likely sleep apnea/OHS overlap and was hypoxic yesterday with improved with Lasix and or nightly BiPAP. Currently on 3 L. INTERVAL HISTORY: 09/02/20 No acute issues. Has been weaned off oxygen. Although does require on and off 1 to 2 L. Recommend a home O2 eval before discharge. REVIEW OF SYSTEMS: Constitutional: Negative for activity change, appetite change, chills, diaphoresis and fatigue. HENT: Negative. Eyes: Negative. Respiratory: Negative for apnea, cough, choking, chest tightness and shortness of breath. Cardiovascular: Negative. Negative for chest pain and leg swelling. Gastrointestinal: Negative. Endocrine: Negative. Genitourinary: Negative. Negative for difficulty urinating, dysuria, enuresis and flank pain. Musculoskeletal: Negative for arthralgias, back pain and gait problem. Skin: Negative. Allergic/Immunologic: Negative. Neurological: Negative. OBJECTIVE VENTILATOR SETTINGS: Vent Information $Ventilation: Off Vent Skin Assessment: Clean, dry, & intact Equipment ID: [id number] Equipment Changed: HME Vent Type: Servo i Vent Mode: CPAP Vt Ordered: 580 mL Rate Set: 20 bmp Pressure Support: 6 cmH20 FiO2 : 40 % SpO2: 99 % SpO2/FiO2 ratio: 250 Sensitivity: 3 PEEP/CPAP: 5 I Time/ I Time %: 0.9 s Humidification Source: HME Mask Type: Full face mask Mask Size: Large PaO2/FiO2 RATIO: No results for input(s): POCPO2 in the last 72 hours. FiO2 : 40 % VITAL SIGNS: LAST: BP 129/75 Pulse 91 Temp 98 F (36.7 C) (Oral) Resp 25 Ht 6' 3 (1.905 m) Wt (!) 401 lb (181.9 kg) SpO2 99% BMI 50.12 kg/m 8-24 HR RANGE: TEMP Temp Av.1 F (36.7 C) Min: 97.6 F (36.4 C) Max: 98.7 F (37.1 C) BP Systolic (24hrs), Av , Min:129 , Max:154 Diastolic (24hrs), Av, Min:55, Max:75 PULSE Pulse Av.9 Min: 72 Max: 93 RR Resp Av.3 Min: 25 Max: 30 O2 SAT SpO2 Av % Min: 92 % Max: 99 % OXYGEN DELIVERY O2 Flow Rate (L/min) Av L/min Min: 0 L/min Max: 0 L/min SYSTEMIC EXAMINATION: General appearance -alert and oriented. Mental status -as above. Eyes - pupils equal and reactive, sclera anicteric Mouth - mucous membranes moist, pharynx normal without lesions Neck - supple, no significant adenopathy, carotids upstroke normal bilaterally, no bruits Chest -bilateral decreased breath sound at bases. No crackles or wheezes appreciated. Heart - normal rate, regular rhythm, normal S1, S2, no murmurs, rubs, clicks or gallops Abdomen -right lower quadrant end ileostomy. Neurological - DTR's normal and symmetric, motor and sensory grossly normal bilaterally Extremities - peripheral pulses normal, no pedal edema, no clubbing or cyanosis Skin - normal coloration and turgor, no rashes, no suspicious skin lesions noted DATA REVIEW Medications: Scheduled Meds: enoxaparin 40 mg Subcutaneous BID miconazole Topical BID meropenem 1,000 mg Intravenous Q8H insulin lispro 0-12 Units Subcutaneous 4x Daily AC & HS sodium chloride flush 5-40 mL Intravenous 2 times per day Continuous Infusions: sodium chloride dextrose INPUT/OUTPUT: In: 1130.1 [P.O.:700] Out: 4475 [Urine:4075] Date 09/02/20 - 09/02/209 Shift 5299-1555 2984-0610 5891-7195 24 Hour Total INTAKE P.O.(mL/kg/hr) 360 360 IV Piggyback(mL/kg) 156.5(0.9) 98.8(0.5) 255.3(1.4) Shift Total(mL/kg) 156.5(0.9) 458.8(2.5) 615.3(3.4) OUTPUT Urine(mL/kg/hr) 2300 2300 Stool(mL/kg) 100(0.5) 100(0.5) Shift Total(mL/kg) 2400(13.2) 2400(13.2) Weight (kg) 181.9 181.9 181.9 181.9 LABS: ABGs: No results for input(s): POCPH, POCPCO2, POCPO2, POCHCO3, [id number] in the last 72 hours. CBC: Recent Labs 08/31/20 0507 09/01/20 0317 09/01/20 2248 09/02/20 0333 WBC 9.2 5.6 6.3 4.9 HGB 11.7* 11.6* 12.3* 11.4* HCT 39.7* 39.3* 39.2* 38.9* MCV 94.3 92.7 88.7 94.6 PLT 206 164 215 279 RBC 4.21 4.24 4.42 4.11* MCH 27.8 27.4 27.8 27.7 MCHC 29.5 29.5 31.4 29.3 RDW 17.0* 16.8* 16.2* 16.2* CRP: No results for input(s): CRP in the last 72 hours. LDH: No results for input(s): LDH in the last 72 hours. BMP: Recent Labs 08/31/20 0507 NA 137 K 4.2 CL 107 CO2 20 BUN 21 CREATININE 0.77 GLUCOSE 235* Liver Function Test: Recent Labs 08/31/20 0507 09/01/207 09/02/20 0333 PROT 5.5* 5.6* 5.2* 5.4* LABALBU 2.2* 2.2* 2.0* 2.2* ALT 28 29 24 29 AST 32 35 24 33 ALKPHOS 251* 270* 232* 254* BILITOT 2.39* 2.40* 2.02* 1.96* Coagulation Profile: No results for input(s): INR, PROTIME, APTT in the last 72 hours. D-Dimer: No results for input(s): DDIMER in the last 72 hours. Lactic Acid: No results for input(s): LACTA in the last 72 hours. Cardiac Enzymes: No results for input(s): CKTOTAL, CKMB, CKMBINDEX, TROPONINI in the last 72 hours. Invalid input(s): TROPONIN, HSTROP BNP/ProBNP: No results for input(s): BNP, PROBNP in the last 72 hours. Triglycerides: No results for input(s): TRIG in the last 72 hours. Microbiology: Urine Culture: No components found for: CURINE Blood Culture: No components found for: CBLOOD, CFUNGUSBL Sputum Culture: No components found for: CSPUTUM No results for input(s): SPECDESC, SPECIAL, CULTURE, STATUS, ORG, CDIFFTOXPCR, CAMPYLOBPCR, SALMONELLAPC, SHIGAPCR, SHIGELLAPCR, MPNEUG, MPNEUM, LACTOQL in the last 72 hours. No results for input(s): SPUTUM, SPECDESC, SPECIAL, CULTURE, STATUS, ORG, CDIFFTOXPCR, MPNEUM, MPNEUG in the last 72 hours. Invalid input(s): CURINE, CBLOOD, CFUNGUSBL Pathology: Radiology Reports: XR CHEST PORTABLE Final Result Pulmonary vascular congestion with interstitial pulmonary edema similar to prior study. XR CHEST PORTABLE Final Result Improved aeration of lung compared to prior study interval removal of endotracheal tube. Right-sided central venous catheter remains unchanged. Persistent chronic interstitial markings bilaterally with no evidence for effusions. US GALLBLADDER RUQ Final Result Markedly limited examination due to patient body habitus and overlying bowel gas. Evaluation for cholelithiasis or acute cholecystitis is limited on this study. As a was inflammatory changes seen about the gallbladder the recent CT, if there is clinical concern for acute cholecystitis, HIDA scan may be considered for further evaluation. Patient's known choledocholithiasis is not well appreciated sonographically. The common bile duct appears normal in caliber measuring 5 mm. Increased echogenicity of the liver parenchyma, which may reflect underlying hepatic steatosis or other chronic liver parenchymal disease. XR CHEST PORTABLE Final Result Supportive tubing projects in normal position. Vascular congestion. Mild bibasilar atelectasis or airspace disease, with improved aeration on the left in the interval. XR ABDOMEN FOR NG/OG/NE TUBE PLACEMENT Final Result Nasogastric tube projects in normal position. FLUORO FOR SURGICAL PROCEDURES Final Result XR CHEST PORTABLE Final Result Possible mild pulmonary vascular congestion CT HEAD WO CONTRAST Final Result No acute intracranial abnormality. CT CHEST PULMONARY EMBOLISM W CONTRAST Final Result CTA OF THE CHEST: 1. No pulmonary embolism. 2. Dilation of the main pulmonary artery may signify pulmonary arterial hypertension. 3. No evidence of pneumonia. CT OF THE ABDOMEN AND PELVIS: 1. Edema surrounding the gallbladder, likely indicating acute cholecystitis. While no cholelithiasis is evident by CT, multiple calculi are seen in the common bile duct (choledocholithiasis). 2. Status post colectomy with right lower quadrant ileostomy. 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 No bowel wall thickening or obstruction. 3. Status post left inguinal hernia repair, with evidence of a recurrent shallow fat-containing hernia. No evidence of fat strangulation. CT ABDOMEN PELVIS W IV CONTRAST Additional Contrast? None Final Result CTA OF THE CHEST: 1. No pulmonary embolism. 2. Dilation of the main pulmonary artery may signify pulmonary arterial hypertension. 3. No evidence of pneumonia. CT OF THE ABDOMEN AND PELVIS: 1. Edema surrounding the gallbladder, likely indicating acute cholecystitis. While no cholelithiasis is evident by CT, multiple calculi are seen in the common bile duct (choledocholithiasis). 2. Status post colectomy with right lower quadrant ileostomy. 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 No bowel wall thickening or obstruction. 3. Status post left inguinal hernia repair, with evidence of a recurrent shallow fat-containing hernia. No evidence of fat strangulation. Echocardiogram: Results for orders placed during the hospital encounter of 08/27/20 ECHO Complete 2D W Doppler W Color Narrative Transthoracic Echocardiography Report (TTE) Patient Name ANDI Date of Study 08/30/2020 KAMRAN Pike Date of 1950 Gender Male Age 70 year(s) Race Room Number 0117 Height: 75 inch, 190.5 cm Corporate ID [id number] Weight: 396 pounds, 179.6 kg # Patient Acct [id number] BSA: 2.93 m^2 BMI: 49.5 kg/m^2 # MR # [id number] Jeep Driver Sari Mosqueda Interpreting Physician Toni Damon Fellow Referring Nurse Practitioner Interpreting Referring Physician ESTEPHANIE RENEE, Fellow KITTY Type of Study TTE procedure:2D Echocardiogram, M-Mode, Doppler, Color Doppler. Procedure Date Date: 08/30/2020 Start: 08:59 AM Study Location: [facility] Technical Quality: Adequate visualization Indications:Bacteremia. History / Tech. Comments: Echo done at patient bedside. Procedure explained to patient. DM, A-fib, HTN Patient Status: Inpatient Height: 75 inches Weight: 396.01 pounds BSA: 2.93 m^2 BMI: 49.5 kg/m^2 CONCLUSIONS Summary Technically difficult study Normal LV size , mildly increased LV wall thickness. No obvious wall motion abnormality seen. Normal LV systolic function with LVEF 55%. Normal RV size and function. LA and RA appears normal in size. No obvious significant structural valvular abnormality noted. No significant valvular stenosis or regurgitation noted. Normal aortic root dimension. No significant pericardial effusion noted. IVC not well visualized Signature FINDINGS Left Atrium Left atrium is normal in size. Left Ventricle Left ventricle is normal in size. Global left ventricular systolic function is normal. Calculated ejection fraction 48% by Bah's method. Visually estimated EF 50-55%. Mild concentric left ventricular hypertrophy. Right Atrium Right atrium is normal in size. Right Ventricle Normal right ventricular size and function. TAPSE value of 1.94cm noted. Mitral Valve Mild mitral annular calcification is seen. No mitral regurgitation. Aortic Valve Normal aortic valve structure and function without stenosis or regurgitation. Tricuspid Valve Normal tricuspid valve structure and function. No tricuspid regurgitation. Pulmonic Valve The pulmonic valve is normal in structure. No pulmonic insufficiency. Pericardial Effusion No pericardial effusion seen. Miscellaneous E/E' average = 10.9. IVC not visualized. M-mode / 2D Measurements & Calculations: LVIDd:5.6 cm(3.7 - 5.6 cm) Diastolic Volume:48.2 ml LVIDs:3.99 cm(2.2 - 4.0 cm) Systolic Volume:24.8 ml IVSd:1.2 cm(0.6 - 1.1 cm) Aortic Root:4 cm(2.0 - 3.7 cm) LVPWd:1.2 cm(0.6 - 1.1 cm) LA Dimension: 3.3 cm(1.9 - 4.0 cm) Fractional Shortenin.75 % LA volume/Index: 31.8 ml /11m^2 Calculated LVEF (%): 48.55 % LVOT:2.5 cm RVDd:2.5 cm Mitral: Aortic Valve Area (P1/2-Time): 5.95 cm^2 Peak Velocity: 1.21 m/s Peak E-Wave: 0.85 m/s Mean Velocity: 0.81 m/s Peak A-Wave: 1.15 m/s Peak Gradient: 5.86 mmHg E/A Ratio: 0.74 Mean Gradient: 3 mmHg Peak Gradient: 2.88 mmHg Mean Gradient: 3 mmHg Deceleration Time: 127 msec Area (continuity): 3.86 cm^2 P1/2t: 37 msec AV VTI: 25.9 cm Area (continuity): 2.54 cm^2 Mean Velocity: 0.78 m/s Pulmonic: Peak Velocity: 1.10 m/s Peak Gradient: 4.84 mmHg Diastology / Tissue Doppler Septal Wall E' velocity:0.07 m/s Septal Wall E/E':11.6 Lateral Wall E' velocity:0.08 m/s Lateral Wall E/E':10.3 ASSESSMENT AND PLAN Assessment: //Septic shock secondary to acute ascending cholangitis requiring ERCP and biliary stent placement on 08/28. //Undiagnosed sleep apnea/OHS overlap picture with morbid obesity. //BMI of 50.12. //HTN/HLD. 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 //Initial presentation with supratherapeutic INR with no evidence of bleeding. Plan: I personally interviewed/examined the patient; reviewed interval history, interpreted all available radiographic and laboratory data at the time of service. Agree with BiPAP overnight. Diuresis needed. Antibiotics as per primary discussion. Will need a sleep study as outpatient. Please arrange follow-up with Dr. Rae as outpatient. Patient needs a home CPAP before discharge. We will continue to follow. The patient is/remains critically ill with illness/injury that acutely impairs one or more vital organ systems, such that there is a high probability of imminent or life threatening deterioration in the patient's condition. Critical care time of 35 minutes was spent (excluding procedures), in coordination of care during bedside rounds and discussion of patient care in detail, and recommendations of the team were adopted in the plan. Necessity of all invasive devices was also confirmed. Uzair Kay MD Internal Medicine Resident PGY-3 09/02/2020, 12:17 PM Attending Physician Statement I have discussed the care of Kamran Harley, including pertinent history and exam findings, with the resident. I have seen and examined the patient and the [place] elements of all parts of the encounter have been performed by me. I agree with the assessment, plan and orders as documented by the resident with additions . Treatment plan Discussed with nursing staff in detail , all questions answered . Please note that this chart was generated using voice recognition [employer] dictation software. Although every effort was made to ensure the accuracy of this automated barber instructor, some errors in barber instructor may have occurred. Images from the original note were not included. 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, right ileostomy Inguinal hernia repair with herniated fat no strangulation Allergy to penicillin 7 years old had a shot, most likely reactive to the shots but not to the penicillin product-tolerated Zosyn 08/27 Discussion / summary of stay / plan of care Presents with septic shock and acute encephalopathy, progressing during his admission, gram-negative septicemia seems to be related to a complicated UTI but also to an obstructive cholangitis Patient has progressed into severe sepsis during his admission and hence he is at risk to develop multiorgan failure He did have a history of UTIs, multiple antibiotic intake in the past and hence he is at risk for MDRO gram-negative Recommendations Stop the vancomycin Stop Zosyn 08/28 08/28 meropenem to better address the cholangitis/ bacteremia / ESBL UTI Plan 10 days AB till 09/06 DC planning - chart reconsiled Infection Control Recommendations [place] Precautions Antimicrobial Stewardship Recommendations Simplification of therapy Targeted therapy Per Kg dosing Coordination ofOutpatient Care: Estimated Length of IV antimicrobials: Patient will need Midline / picc Catheter Insertion: Patient will need SNF: Patient will need outpatient wound care: History of Present Illness: Initial history: Kamran Harley is a 70 y.o.-year-old male obese phone straight cath, states that 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 He feels he has had some dysuria and is concerned he might be having a UTI. Came to the ER he was having fever, blood cultures taken and he was sent to the floor Today he is getting short of breath lethargic, tachycardic, hypotensive. He was started on vancomycin and Zosyn, since blood cultures are showing gram-negative rods Urine culture remains pending gram-negative rods CT of the abdomen showed normal kidneys, gallbladder showed multiple stones with some obstruction, suspect there is for ascending cholangitis, there is edema around the gallbladder as well GI contemplating ERCP once more stable Patient being transferred to the ICU 08/28: Discussed with GI, they will defer ERCP till he stabilizes, agree with cholecystostomy in the meantime to decompress Patient sleepy arousable very appropriate, discussed with him his allergy to penicillin as stated in the impression section. He tolerated Zosyn so far without any hives He does have a tenderness over the right upper quadrant Multiple over both knees Lees with hemal urine but no cloudiness Interval changes Patient Vitals for the past 8 hrs: BP Temp Temp src Pulse Resp SpO2 09/01/20 1524 (!) 146/63 97.6 F (36.4 C) Oral 77 29 94 % 09/01/20 1225 (!) 143/55 Oral 91 26 96 % 09/01/20 1130 (!) 143 97.1 F (36.2 C) Temporal 86 25 98 % post ERCP 08/28 Stones extracted and Biliary sphincterotomy done Cholecystostomy could not be done 05/28 09/01: Leukocytosis resolved- WBC 5.6 Creatinine improved to 0.77 No fevers or chills. Saturating mid 90's on 1 L NC. Abdomen soft and non tender. Fatigued but no SOB, chest pain, appetite is normal. 08/27 BC1: E.coli-esbl neg, Klebsiella + ESBL 08/27 BC2: E.coli- esbl neg, S Ceftriaxone Urine + ESBL klebsiella most likely originating from the common bile duct Repeat blood cultures pending LFTs trending down- will need a repeat EGD/ERCP for removal of stent in 4 to 6 weeks with . Discharge planning Summary of relevant labs: Labs: WBC 15 16 - 18 - 11 - 9.2- 5.6 Creatinine 0.75 - 1.28- 0.77 AST 49 - 56- 24 AST 50 - 42- 24 Bilirubin 5.98- 8.87- 3.35- 2.4- 2.02 Micro: Blood culture 08/27 gram-negative rods next 2 urine culture 08/27 kLEB esbl MRSA nasal + swab Imaging: CXR Mild bibasilar atelectasis or airspace disease, with improved aeration on the left in the interval. US GB 08/28 Markedly limited examination due to patient body habitus and overlying bowel gas. Evaluation for cholelithiasis or acute cholecystitis is limited on this study. As a was inflammatory changes seen about the gallbladder the recent CT, if there is clinical concern for acute cholecystitis, HIDA scan may be considered for further evaluation. Patient's known choledocholithiasis is not well appreciated sonographically. The common bile duct appears normal in caliber measuring 5 mm. Increased echogenicity of the liver parenchyma, which may reflect underlying hepatic steatosis or other chronic liver parenchymal disease ERCP 08/28 - PROCEDURES PERFORMED: 1. Transoral Endoscopic retrograde cholangiopancreatography (ERCP). 2. Cholangiogram 3. Biliary sphincterotomy 4. Balloon sweeps with extraction of stone and pus 5. Placement of 10 F x 7 cm plastic biliary stent 6. Fluoroscopy POSTPROCEDURE DIAGNOSIS: CBD stones and sludge Retained gastric contents CT of the head no acute abnormality 08/28 CT chest 08/27 no pulmonary emboli, dilatation of the main pulmonary artery that might reflect pulmonary arterial hypertension, no pneumonia H with edema surrounding the gallbladder suggesting acute cholecystitis with no cholelithiasis on CT but multiple stones are seen in the common bile duct Right lower quadrant ileostomy with post colectomy Redundant loop of ileum in the parastomal hernia No bowel thickening Post left inguinal hernia repair, with fat-containing persistent hernia but no strangulation Kidneys unremarkable I have personally reviewed the past medical history, past surgical history, medications, social history, and family history, and I haveupdated the database accordingly. Allergies: Oxytetracycline, Penicillins, and Sulfa antibiotics Review of Systems: Review of Systems Constitutional: Positive for fatigue. Negative for activity change, appetite change and fever. HENT: Negative for congestion and drooling. Eyes: Positive for discharge. Negative for itching and visual disturbance. Respiratory: Negative for apnea, cough and shortness of breath. Cardiovascular: Negative for chest pain. Gastrointestinal: Negative for abdominal distention, abdominal pain, nausea and vomiting. Endocrine: Negative for heat intolerance. Genitourinary: Negative for dysuria and hematuria. Musculoskeletal: Negative for arthralgias. Skin: Negative for color change and rash. Allergic/Immunologic: Negative for immunocompromised state. Neurological: Positive for weakness. Negative for dizziness. Hematological: Does not bruise/bleed easily. Psychiatric/Behavioral: Negative for agitation, confusion and decreased concentration. Physical Examination : Physical Exam Constitutional: General: He is not in acute distress. Appearance: He is obese. He is not ill-appearing. Comments: arousable HENT: Head: Normocephalic and atraumatic. Nose: Nose normal. No congestion or rhinorrhea. Mouth/Throat: Mouth: Mucous membranes are moist. Eyes: General: No scleral icterus. Right eye: No discharge. Left eye: No discharge. Conjunctiva/sclera: Conjunctivae normal. Cardiovascular: Rate and Rhythm: Normal rate and regular rhythm. Heart sounds: Normal heart sounds. No murmur heard. Pulmonary: Effort: No respiratory distress. Breath sounds: Normal breath sounds. No stridor. Abdominal: General: There is no distension. Palpations: Abdomen is soft. Tenderness: There is no abdominal tenderness. There is no guarding. Comments: Right ileostomy with herniated loops Genitourinary: Comments: Urine hemal Musculoskeletal: General: No tenderness or signs of injury. Cervical back: Neck supple. No tenderness. Skin: General: Skin is warm. Coloration: Skin is not pale. Findings: No erythema or rash. Neurological: General: No focal deficit present. Mental Status: He is oriented to person, place, and time. Cranial Nerves: No cranial nerve deficit. Psychiatric: Mood and Affect: Mood normal. Behavior: Behavior normal. Thought Content: Thought content normal. Past Medical History: Past Medical History: Diagnosis Date Chronic anticoagulation: Coumadin Coagulopathy (HCC) HLD (hyperlipidemia) HTN (hypertension) Hypomagnesemia 08/27/[address] (HCC) Morbid obesity (HCC) [place] syndrome Paroxysmal atrial fibrillation (HCC) Type 2 diabetes mellitus (HCC) Past Surgical History: Past Surgical History: Procedure Laterality Date COLON SURGERY Subtotal colectomy ERCP N/A 08/28/2020 ERCP DILATION BALLOON performed by Alexis Ramon MD at [facility] OR ERCP 08/28/2020 ERCP STENT INSERTION performed by Alexis Ramon MD at [facility] OR ERCP 08/28/2020 ERCP SPHINCTER/PAPILLOTOMY performed by Alexis Ramon MD at [facility] OR GASTROSTOMY TUBE PLACEMENT HERNIA REPAIR ILEOSTOMY OR JEJUNOSTOMY Medications: enoxaparin 40 mg Subcutaneous BID miconazole Topical BID meropenem 1,000 mg Intravenous Q8H insulin lispro 0-12 Units Subcutaneous 4x Daily AC & HS sodium chloride flush 5-40 mL Intravenous 2 times per day Social History: Social History Socioeconomic History Marital status: Unknown Spouse name: Not on file Number of children: Not on file Years of education: Not on file Highest education level: Not on file Occupational History Not on file Tobacco Use Smoking status: Never Smoker Smokeless tobacco: Never Used Substance and Sexual Activity Alcohol use: Not on file Drug use: Not on file Sexual activity: Not on file Other Topics Concern Not on file Social History Narrative Not on file Social Determinants of Health Financial Resource Strain: Difficulty of Paying Living Expenses: Food Insecurity: Worried About Running Out of Food in the Last Year: Ran Out of Food in the Last Year: Transportation Needs: Lack of Transportation (Medical): Lack of Transportation (Non-Medical): Physical Activity: Days of Exercise per Week: Minutes of Exercise per Session: Stress: Feeling of Stress : Social Connections: Frequency of Communication with Friends and Family: Frequency of Social Gatherings with Friends and Family: Attends [employer] Services: Active Member of Clubs or Organizations: Attends Club or Organization Meetings: Marital Status: Intimate Partner Violence: Fear of Current or Ex-Partner: Emotionally Abused: Physically Abused: Sexually Abused: Family History: Family History Problem Relation Age of Onset Diabetes Mother Other Father Medical Decision Making: I have independently reviewed/ordered the following labs: CBC with Differential: Recent Labs 08/31/20 0507 09/01/20316 WBC 9.2 5.6 HGB 11.7* 11.6* HCT 39.7* 39.3* PLT 206 164 BMP: Recent Labs 08/31/20 0507 09/01/20316 NA 137 -- K 4.2 -- CL 107 -- CO2 20 -- BUN 21 -- CREATININE 0.77 -- MG 2.1 1.9 Hepatic Function Panel: Recent Labs 08/31/20 0507 09/01/20316 PROT 5.5* 5.6* 5.2* LABALBU 2.2* 2.2* 2.0* BILIDIR 1.74* 1.39* IBILI 0.66 0.63 BILITOT 2.39* 2.40* 2.02* ALKPHOS 251* 270* 232* ALT 28 29 24 AST 32 35 24 No results for input(s): RPR in the last 72 hours. No results for input(s): HIV in the last 72 hours. No results for input(s): BC in the last 72 hours. Lab Results Component Value Date CREATININE 0.77 08/31/2020 GLUCOSE 235 08/31/2020 Detailed results: Thank you for allowing us to participate in the care of this patient.Please call with questions. This note is created with the assistance of a speech recognition program. While intending to generate adocument that actually reflects the content of the visit, the document can still have some errors including those of syntax and sound a like substitutions which may escape proof reading. It such instances, actual meaningcan be extrapolated by contextual diversion. Georgia Pacheco Office: Perfect [facility] / office [phone] I have discussed the care of the patient, including pertinent history and exam findings, with the resident. I have seen and examined the patient and the [place] elements of all parts of the encounter have been performed by me. I agree with the assessment, plan and orders as documented by the resident. Samy Russell, Infectious Diseases Physical Therapy Facility/Department: [address] STE[address] Daily Treatment Note NAME: Kamran Harley : 1950 Date of Service: 09/01/2020 Discharge Recommendations: Patient would benefit from continued therapy after discharge Assessment Body structures, Functions, Activity limitations: Decreased functional mobility ;Decreased endurance;Decreased strength Assessment: The pt is overall MOD-MAX A x2 persons for bed mobility. Tolerated ~10mins at EOB , limited by fatigue and decrease endurance. recomending continued therapy to address deficits . Prognosis: Good PT Education: Goals;Plan of Care;General Safety;Functional Mobility Training REQUIRES PT FOLLOW UP: Yes Activity Tolerance Activity Tolerance: Patient limited by fatigue;Patient limited by endurance Patient Diagnosis(es): There were no encounter diagnoses. 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 has a past surgical history that includes Colon surgery; ileostomy or jejunostomy; Hernia repair; Gastrostomy tube placement; ERCP (N/A, 08/28/2020); ERCP (08/28/2020); and ERCP (08/28/2020). Restrictions Restrictions/Precautions Restrictions/Precautions: General Precautions, Fall Risk Required Braces or Orthoses?: No Position Activity Restriction Other position/activity restrictions: s/p ERCP DILATION BALLOON (N/A ); ERCP STENT INSERTION; ERCP SPHINCTER/PAPILLOTOMY (08/28/2020) Subjective General Chart Reviewed: Yes Response To Previous Treatment: Patient with no complaints from previous session. Family / Caregiver Present: No Subjective Subjective: RN and pt agreeable to PT . Pt alert in bed upon arrival. Pleasant and cooperative t/o Pain Screening Patient Currently in Pain: Denies Vital Signs Patient Currently in Pain: Denies Orientation Orientation Overall Orientation Status: Within Normal Limits Cognition Objective Bed mobility Supine to Sit: Moderate assistance;2 Person assistance Sit to Supine: Maximum assistance;2 Person assistance Scooting: Moderate assistance Comment: HOB eavated . pt demo increase effort/ time. Tolerated ~10 mins at EOB. returned to supine to perform jatinder lift transfer into chair. Transfers Bed to Chair: Dependent/Total (Pt jatinder lifted to chair.) Ambulation Ambulation?: No Balance Sitting - Static: Fair Sitting - Dynamic: Fair;- Exercises Comments: Seated LE exercise program: Long Arc Quads, hip abduction/adduction, heel/toe raises, and marches. Reps: x10 Goals Short term goals Time Frame for Short term goals: 10 visits Short term goal 1: supine to sit with SBA Short term goal 2: sliding board transfer with CGA Short term goal 3: to be independent with bed mobility Short term goal 4: 20 min exercise program x SBA Patient Goals Patient goals : Return home Plan Plan Times per week: 5-6x wk Current Treatment Recommendations: Strengthening, Functional Mobility Training, Safety Education & Training, Endurance Training, Transfer Training, Balance Training Safety Devices Type of devices: Nurse notified, Call light within reach, Left in chair, Gait belt, All fall risk precautions in place Therapy Time Individual Concurrent Group Co-treatment Time In 0950 Time Out 1024 Minutes 34 Timed Code Treatment Minutes: 18 Minutes (co-treat with OT) Danyell Burnett PTA Occupational Therapy Facility/Department: [address] STE[address]OWN Daily Treatment Note NAME: Kamran Harley : 1950 Date of Service: 09/01/2020 Discharge Recommendations: Patient would benefit from continued therapy after discharge to increase pt func mobility, endurance, ADL status, and strength OT Equipment Recommendations ADL Assistive Devices: Transfer Tub Bench;Hand-held Shower;Scarf Gluer;Sock-Aid Hard;Long-handled Shoe Horn;Long-handled Sponge;Dressing Stick Assessment Performance deficits / Impairments: Decreased functional mobility ;Decreased endurance;Decreased ADL status;Decreased posture;Decreased balance;Decreased safe awareness;Decreased high-level IADLs;Decreased cognition Prognosis: Fair Patient Education: Pt ed on OT role, POC, proper hand placement for bed mobility, pursed lip breathing- Pt verbalized understanding REQUIRES OT FOLLOW UP: Yes Activity Tolerance Activity Tolerance: Patient Tolerated treatment well;Patient limited by pain Safety Devices Safety Devices in place: Yes Type of devices: Call light within reach;Nurse notified;Gait belt;Left in chair Restraints Initially in place: No Patient Diagnosis(es): There were no encounter diagnoses. 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 has a past surgical history that includes Colon surgery; ileostomy or jejunostomy; Hernia repair; Gastrostomy tube placement; ERCP (N/A, 08/28/2020); ERCP (08/28/2020); and ERCP (08/28/2020). Restrictions Restrictions/Precautions Restrictions/Precautions: General Precautions, Fall Risk Required Braces or Orthoses?: No Position Activity Restriction Other position/activity restrictions: s/p ERCP DILATION BALLOON (N/A ); ERCP STENT INSERTION; ERCP SPHINCTER/PAPILLOTOMY (08/28/2020) Subjective General Chart Reviewed: Yes Patient assessed for rehabilitation services?: Yes Family / Caregiver Present: No Diagnosis: Gram negative septicemia General Comment Comments: Pts primary RN Ok'd pt to be seen prior to entry into pts room. Pt was awake, alert, and agreeable to tx this date. Vital Signs Patient Currently in Pain: Denies Orientation Orientation Overall Orientation Status: Within Functional Limits Objective ADL UE Dressing: Setup;Increased time to complete;Minimal assistance (Don/doff gown sitting EOB, req Min A for line mgmt and to tie gown) Additional Comments: Pt declined further ADLs, reports completing this morning Balance Sitting Balance: Contact guard assistance (CGA progressing to SBA sitting EOB) Standing Balance: Unable to assess(comment) (NATHAN, pt uses slide board and w/c at baseline) Functional Mobility Functional Mobility Comments: NATHAN secondary to baseline seated status Bed mobility Supine to Sit: Moderate assistance;2 Person assistance Sit to Supine: Maximum assistance;2 Person assistance Scooting: Moderate assistance Comment: HOB eavated . pt demo increase effort/ time. Tolerated ~10 mins at EOB. returned to supine to perform jatinder lift transfer into chair. Transfers Transfer Comments: NATHAN secondary to baseline seated status Cognition Overall Cognitive Status: Exceptions Arousal/Alertness: Appropriate responses to stimuli Following Commands: Follows one step commands with increased time;Follows one step commands with repetition Attention Span: Attends with cues to redirect Safety Judgement: Decreased awareness of need for assistance Insights: Decreased awareness of deficits Initiation: Requires cues for some Sequencing: Requires cues for some Plan Plan Times per week: 3-4 x/wk Current Treatment Recommendations: Patient/Caregiver Education & Training, Home Management Training, Equipment Evaluation, Education, & procurement, Endurance Training, Pain Management, Safety Education & Training, Self-Care / ADL, Wheelchair Mobility Training, Positioning Goals Short term goals Time Frame for Short term goals: By discharge, pt will; Short term goal 1: demo all bed mobility maneuvers mod A with use of appropriate AD's to decrease risk of pressure injuries Short term goal 2: demo sitting tolerance EOB SBA x 20 minutes to improve positioning for participation in seated ADL tasks Short term goal 3: demo UB ADLs and grooming tasks mod I Short term goal 4: demo LB ADLs and toileting tasks mod A with use of AE and appropriate DME PRN Short term goal 5: demo functional lateral transfer with use of transfer board max A to decrease caregiver burden of care Short term goal 6: demo good safety during functional interventions with < 2 VC's Therapy Time Individual Concurrent Group Co-treatment Time In 950 Time Out 1023 Minutes 32 Timed Code Treatment Minutes: 16 Minutes (16 min co tx PT) Pt in bed upon arrival, pleasant and agreeable to tx this date. Pt retired to chair at end of session. Call light within reach, RN notified. NANCIE [facility] MEDICINE PROGRESS NOTE Patient: Kamran Harley Admit date: 08/27/2020 Primary Care Physician: Jesus Chopra DO Consulting Physician: Harvey Dotson MD CODE Status: Full Code LOS: 5 SUBJECTIVE BRIEF HOSPITAL COURSE: The patient is a 70 y.o. male morbidly obese, history of paroxysmal A. fib, HTN/HLD, history of DVTs on Coumadin, presenting with generalized discomfort nausea and chills. Initial labs revealed a significant supratherapeutic INR of 12.[address] scan of the abdomen and pelvis showing evidence of acute cholecystitis with multiple CBD stones. Initially was tachycardic and hypotensive and transferred to ICU. 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 Subsequently underwent ERCP on the with stone and pus extraction with biliary stent placement. Concurrently on meropenem and transferred out of the ICU. History of undiagnosed likely sleep apnea/OHS overlap and was hypoxic yesterday with improved with Lasix and or nightly BiPAP. Currently on 3 L. INTERVAL HISTORY: 09/01/20 Currently on 3 L of oxygen no active complaints. REVIEW OF SYSTEMS: Constitutional: Negative for activity change, appetite change, chills, diaphoresis and fatigue. HENT: Negative. Eyes: Negative. Respiratory: Negative for apnea, cough, choking, chest tightness and shortness of breath. Cardiovascular: Negative. Negative for chest pain and leg swelling. Gastrointestinal: Negative. Endocrine: Negative. Genitourinary: Negative. Negative for difficulty urinating, dysuria, enuresis and flank pain. Musculoskeletal: Negative for arthralgias, back pain and gait problem. Skin: Negative. Allergic/Immunologic: Negative. Neurological: Negative. OBJECTIVE VENTILATOR SETTINGS: Vent Information $Ventilation: Off Vent Skin Assessment: Clean, dry, & intact Equipment ID: [id number] Equipment Changed: HME Vent Type: Servo i Vent Mode: CPAP Vt Ordered: 580 mL Rate Set: 20 bmp Pressure Support: 6 cmH20 FiO2 : 40 % SpO2: 98 % SpO2/FiO2 ratio: 250 Sensitivity: 3 PEEP/CPAP: 5 I Time/ I Time %: 0.9 s Humidification Source: HME Mask Type: Full face mask Mask Size: Large PaO2/FiO2 RATIO: No results for input(s): POCPO2 in the last 72 hours. FiO2 : 40 % VITAL SIGNS: LAST: BP (!) 146/68 Pulse 87 Temp 99.3 F (37.4 C) (Temporal) Resp 27 Ht 6' 3 (1.905 m) Wt (!) 401 lb (181.9 kg) SpO2 98% BMI 50.12 kg/m 8-24 HR RANGE: TEMP Temp Av.1 F (36.7 C) Min: 97.6 F (36.4 C) Max: 99.3 F (37.4 C) BP Systolic (24hrs), Av , Min:126 , Max:146 Diastolic (24hrs), Av, Min:60, Max:73 PULSE Pulse Av.3 Min: 60 Max: 87 RR Resp Av Min: 21 Max: 27 O2 SAT SpO2 Av % Min: 98 % Max: 100 % OXYGEN DELIVERY O2 Flow Rate (L/min) Av L/min Min: 3 L/min Max: 3 L/min SYSTEMIC EXAMINATION: General appearance -alert and oriented on 3 L of oxygen. Mental status -as above. Eyes - pupils equal and reactive, sclera anicteric Mouth - mucous membranes moist, pharynx normal without lesions Neck - supple, no significant adenopathy, carotids upstroke normal bilaterally, no bruits Chest -bilateral decreased breath sound at bases. No crackles or wheezes appreciated. Heart - normal rate, regular rhythm, normal S1, S2, no murmurs, rubs, clicks or gallops Abdomen -right lower quadrant end ileostomy. Neurological - DTR's normal and symmetric, motor and sensory grossly normal bilaterally Extremities - peripheral pulses normal, no pedal edema, no clubbing or cyanosis Skin - normal coloration and turgor, no rashes, no suspicious skin lesions noted DATA REVIEW Medications: Scheduled Meds: enoxaparin 40 mg Subcutaneous BID miconazole Topical BID meropenem 1,000 mg Intravenous Q8H insulin lispro 0-12 Units Subcutaneous 4x Daily AC & HS sodium chloride flush 5-40 mL Intravenous 2 times per day Continuous Infusions: sodium chloride dextrose INPUT/OUTPUT: In: 1718 [P.O.:920; I.V.:798] Out: 3125 [Urine:3025] Date 09/01/20 0000 - 09/01/202358 Shift [id number] 1468-9271 7021-1156 24 Hour Total INTAKE P.O.(mL/kg/hr) 560(0.4) 560 I.V.(mL/kg) 798(4.4) 798(4.4) Shift Total(mL/kg) 1358(7.5) 1358(7.5) OUTPUT Urine(mL/kg/hr) 1200(0.8) 1200 Stool(mL/kg) 100(0.5) 100(0.5) Shift Total(mL/kg) 1300(7.1) 1300(7.1) Weight (kg) 181.9 181.9 181.9 181.9 LABS: ABGs: No results for input(s): POCPH, POCPCO2, POCPO2, POCHCO3, ZGAH9BDL in the last 72 hours. CBC: Recent Labs 08/30/20 0559 08/31/20 0507 09/01/20 0317 WBC 11.2 9.2 5.6 HGB 11.2* 11.7* 11.6* HCT 36.6* 39.7* 39.3* MCV 90.4 94.3 92.7 PLT 139 206 164 RBC 4.05* 4.21 4.24 MCH 27.7 27.8 27.4 MCHC 30.6 29.5 29.5 RDW 16.5* 17.0* 16.8* CRP: No results for input(s): CRP in the last 72 hours. LDH: No results for input(s): LDH in the last 72 hours. BMP: Recent Labs 08/31/20 0507 NA 137 K 4.2 CL 107 CO2 20 BUN 21 CREATININE 0.77 GLUCOSE 235* Liver Function Test: Recent Labs 08/30/20 0846 08/31/20 0507 09/01/20 0317 PROT 5.1* 5.5* 5.6* 5.2* LABALBU 2.2* 2.2* 2.2* 2.0* ALT 32 28 29 24 AST 32 32 35 24 ALKPHOS 234* 251* 270* 232* BILITOT 3.35* 2.39* 2.40* 2.02* Coagulation Profile: No results for input(s): INR, PROTIME, APTT in the last 72 hours. D-Dimer: No results for input(s): DDIMER in the last 72 hours. Lactic Acid: No results for input(s): LACTA in the last 72 hours. Cardiac Enzymes: No results for input(s): CKTOTAL, CKMB, CKMBINDEX, TROPONINI in the last 72 hours. Invalid input(s): TROPONIN, HSTROP BNP/ProBNP: No results for input(s): BNP, PROBNP in the last 72 hours. Triglycerides: No results for input(s): TRIG in the last 72 hours. Microbiology: Urine Culture: No components found for: CURINE Blood Culture: No components found for: CBLOOD, CFUNGUSBL Sputum Culture: No components found for: CSPUTUM No results for input(s): SPECDESC, SPECIAL, CULTURE, STATUS, ORG, CDIFFTOXPCR, CAMPYLOBPCR, SALMONELLAPC, SHIGAPCR, SHIGELLAPCR, MPNEUG, MPNEUM, LACTOQL in the last 72 hours. No results for input(s): SPUTUM, SPECDESC, SPECIAL, CULTURE, STATUS, ORG, CDIFFTOXPCR, MPNEUM, MPNEUG in the last 72 hours. Invalid input(s): CURINE, CBLOOD, CFUNGUSBL Pathology: Radiology Reports: XR CHEST PORTABLE Final Result Pulmonary vascular congestion with interstitial pulmonary edema similar to prior study. XR CHEST PORTABLE Final Result Improved aeration of lung compared to prior study interval removal of endotracheal tube. Right-sided central venous catheter remains unchanged. Persistent chronic interstitial markings bilaterally with no evidence for effusions. US GALLBLADDER RUQ Final Result Markedly limited examination due to patient body habitus and overlying bowel gas. Evaluation for cholelithiasis or acute cholecystitis is limited on this study. As a was inflammatory changes seen about the gallbladder the recent CT, if there is clinical concern for acute cholecystitis, HIDA scan may be considered for further evaluation. Patient's known choledocholithiasis is not well appreciated sonographically. The common bile duct appears normal in caliber measuring 5 mm. Increased echogenicity of the liver parenchyma, which may reflect underlying hepatic steatosis or other chronic liver parenchymal disease. XR CHEST PORTABLE Final Result Supportive tubing projects in normal position. Vascular congestion. Mild bibasilar atelectasis or airspace disease, with improved aeration on the left in the interval. XR ABDOMEN FOR NG/OG/NE TUBE PLACEMENT Final Result Nasogastric tube projects in normal position. FLUORO FOR SURGICAL PROCEDURES Final Result XR CHEST PORTABLE Final Result Possible mild pulmonary vascular congestion CT HEAD WO CONTRAST Final Result No acute intracranial abnormality. CT CHEST PULMONARY EMBOLISM W CONTRAST Final Result CTA OF THE CHEST: 1. No pulmonary embolism. 2. Dilation of the main pulmonary artery may signify pulmonary arterial hypertension. 3. No evidence of pneumonia. CT OF THE ABDOMEN AND PELVIS: 1. Edema surrounding the gallbladder, likely indicating acute cholecystitis. While no cholelithiasis is evident by CT, multiple calculi are seen in the common bile duct (choledocholithiasis). 2. Status post colectomy with right lower quadrant ileostomy. 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 No bowel wall thickening or obstruction. 3. Status post left inguinal hernia repair, with evidence of a recurrent shallow fat-containing hernia. No evidence of fat strangulation. CT ABDOMEN PELVIS W IV CONTRAST Additional Contrast? None Final Result CTA OF THE CHEST: 1. No pulmonary embolism. 2. Dilation of the main pulmonary artery may signify pulmonary arterial hypertension. 3. No evidence of pneumonia. CT OF THE ABDOMEN AND PELVIS: 1. Edema surrounding the gallbladder, likely indicating acute cholecystitis. While no cholelithiasis is evident by CT, multiple calculi are seen in the common bile duct (choledocholithiasis). 2. Status post colectomy with right lower quadrant ileostomy. 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 No bowel wall thickening or obstruction. 3. Status post left inguinal hernia repair, with evidence of a recurrent shallow fat-containing hernia. No evidence of fat strangulation. Echocardiogram: Results for orders placed during the hospital encounter of 08/27/20 ECHO Complete 2D W Doppler W Color Narrative Transthoracic Echocardiography Report (TTE) Patient Name ANDI Date of Study 08/30/2020 KAMRAN Pike Date of 1950 Gender Male Age 70 year(s) Race Room Number 0117 Height: 75 inch, 190.5 cm Corporate ID [id number] Weight: 396 pounds, 179.6 kg # Patient Acct [id number] BSA: 2.93 m^2 BMI: 49.5 kg/m^2 # MR # [id number] Jeep Driver Sari Mosqueda Interpreting Physician Toni Damon Referring Nurse Practitioner Interpreting Referring Physician ESTEPHANIE RENEE, Robina TANG Type of Study TTE procedure:2D Echocardiogram, M-Mode, Doppler, Color Doppler. Procedure Date Date: 08/30/2020 Start: 08:59 AM Study Location: [facility] Technical Quality: Adequate visualization Indications:Bacteremia. History / Tech. Comments: Echo done at patient bedside. Procedure explained to patient. DM, A-fib, HTN Patient Status: Inpatient Height: 75 inches Weight: 396.01 pounds BSA: 2.93 m^2 BMI: 49.5 kg/m^2 CONCLUSIONS Summary Technically difficult study Normal LV size , mildly increased LV wall thickness. No obvious wall motion abnormality seen. Normal LV systolic function with LVEF 55%. Normal RV size and function. LA and RA appears normal in size. No obvious significant structural valvular abnormality noted. No significant valvular stenosis or regurgitation noted. Normal aortic root dimension. No significant pericardial effusion noted. IVC not well visualized Signature FINDINGS Left Atrium Left atrium is normal in size. Left Ventricle Left ventricle is normal in size. Global left ventricular systolic function is normal. Calculated ejection fraction 48% by Bah's method. Visually estimated EF 50-55%. Mild concentric left ventricular hypertrophy. Right Atrium Right atrium is normal in size. Right Ventricle Normal right ventricular size and function. TAPSE value of 1.94cm noted. Mitral Valve Mild mitral annular calcification is seen. No mitral regurgitation. Aortic Valve Normal aortic valve structure and function without stenosis or regurgitation. Tricuspid Valve Normal tricuspid valve structure and function. No tricuspid regurgitation. Pulmonic Valve The pulmonic valve is normal in structure. No pulmonic insufficiency. Pericardial Effusion No pericardial effusion seen. Miscellaneous E/E' average = 10.9. IVC not visualized. M-mode / 2D Measurements & Calculations: LVIDd:5.6 cm(3.7 - 5.6 cm) Diastolic Volume:48.2 ml LVIDs:3.99 cm(2.2 - 4.0 cm) Systolic Volume:24.8 ml IVSd:1.2 cm(0.6 - 1.1 cm) Aortic Root:4 cm(2.0 - 3.7 cm) LVPWd:1.2 cm(0.6 - 1.1 cm) LA Dimension: 3.3 cm(1.9 - 4.0 cm) Fractional Shortenin.75 % LA volume/Index: 31.8 ml /11m^2 Calculated LVEF (%): 48.55 % LVOT:2.5 cm RVDd:2.5 cm Mitral: Aortic Valve Area (P1/2-Time): 5.95 cm^2 Peak Velocity: 1.21 m/s Peak E-Wave: 0.85 m/s Mean Velocity: 0.81 m/s Peak A-Wave: 1.15 m/s Peak Gradient: 5.86 mmHg E/A Ratio: 0.74 Mean Gradient: 3 mmHg Peak Gradient: 2.88 mmHg Mean Gradient: 3 mmHg Deceleration Time: 127 msec Area (continuity): 3.86 cm^2 P1/2t: 37 msec AV VTI: 25.9 cm Area (continuity): 2.54 cm^2 Mean Velocity: 0.78 m/s Pulmonic: Peak Velocity: 1.10 m/s Peak Gradient: 4.84 mmHg Diastology / Tissue Doppler Septal Wall E' velocity:0.07 m/s Septal Wall E/E':11.6 Lateral Wall E' velocity:0.08 m/s Lateral Wall E/E':10.3 ASSESSMENT AND PLAN Assessment: //Septic shock secondary to acute ascending cholangitis requiring ERCP and biliary stent placement on 08/28. //Undiagnosed sleep apnea/OHS overlap picture with morbid obesity. //BMI of 50.12. //HTN/HLD. 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 //Initial presentation with supratherapeutic INR with no evidence of bleeding. Plan: I personally interviewed/examined the patient; reviewed interval history, interpreted all available radiographic and laboratory data at the time of service. Agree with BiPAP overnight. Diuresis needed. Continue meropenem as per primary and GI recommendations. Will need a sleep study as outpatient. Please arrange follow-up with Dr. Rae as outpatient. Patient needs a home CPAP before discharge. We will continue to follow. The patient is/remains critically ill with illness/injury that acutely impairs one or more vital organ systems, such that there is a high probability of imminent or life threatening deterioration in the patient's condition. Critical care time of 35 minutes was spent (excluding procedures), in coordination of care during bedside rounds and discussion of patient care in detail, and recommendations of the team were adopted in the plan. Necessity of all invasive devices was also confirmed. Uzair Kay MD Internal Medicine Resident PGY-3 09/01/2020, 12:17 PM Attending Physician Statement I have discussed the care of Kamran Harley, including pertinent history and exam findings, with the resident. I have seen and examined the patient and the [place] elements of all parts of the encounter have been performed by me. I agree with the assessment, plan and orders as documented by the resident with additions . Treatment plan Discussed with nursing staff in detail , all questions answered . Please note that this chart was generated using voice recognition Dragon dictation software. Although every effort was made to ensure the accuracy of this automated barber instructor, some errors in barber instructor may have occurred. Please note that this chart was generated using voice recognition Dragon dictation software. Although every effort was made to ensure the accuracy of this automated barber instructor, some errors in barber instructor may have occurred. [facility] Progress Note Kamran Harley is a 70 y.o. male patient. Hospitalization Day:5 Chief consult reason: Elevated liver enzymes Subjective: Patient seen and examined. No acute events overnight. LFTs continue to improve, VSS, afebrile, tolerating diet. VITALS: BP (!) 146/68 Pulse 87 Temp 99.3 F (37.4 C) (Temporal) Resp 27 Ht 6' 3 (1.905 m) Wt (!) 401 lb (181.9 kg) SpO2 98% BMI 50.12 kg/m TEMPERATURE: Current - Temp: 99.3 F (37.4 C); Max - Temp Av.1 F (36.7 C) Min: 97.6 F (36.4 C) Max: 99.3 F (37.4 C) Physical Assessment: General appearance: Awake Mental Status: Alert and oriented x4 Lungs: Managed in bases Heart: regular rate and rhythm, no murmur Abdomen: soft, nontender, nondistended, normal bowel sounds, no masses, hepatomegaly, splenomegaly Extremities: no edema, redness, tenderness in the calves Skin: no gross lesions, rashes, induration Data Review: Labs and Imaging: CBC: Recent Labs 08/30/20 0559 08/31/20 0507 09/01/20316 WBC 11.2 9.2 5.6 HGB 11.2* 11.7* 11.6* MCV 90.4 94.3 92.7 RDW 16.5* 17.0* 16.8* PLT 139 206 164 ANEMIA STUDIES: No results for input(s): LABIRON, TIBC, FERRITIN, [id number], FOLATE, OCCULTBLD in the last 72 hours. BMP: Recent Labs 08/31/20 050 NA 137 K 4.2 CL 107 CO2 20 BUN 21 CREATININE 0.77 GLUCOSE 235* CALCIUM 8.0* LFTS: Recent Labs 08/30/20 0846 08/31/20 0507 09/01/20316 ALKPHOS 234* 251* 270* 232* ALT 32 28 29 24 AST 32 32 35 24 BILITOT 3.35* 2.39* 2.40* 2.02* BILIDIR 2.93* 1.74* 1.39* LABALBU 2.2* 2.2* 2.2* 2.0* Amylase/Lipase and Ammonia: No results for input(s): AMYLASE, LIPASE, AMMONIA in the last 72 hours. Acute Hepatitis Panel: No results found for: HEPBSAG, HEPCAB, HEPBIGM, HEPAIGM HCV Genotype: No results found for: HEPATITISCGENOTYPE HCV Quantitative: No results found for: HCVQNT LIVER WORK UP: AFP No results found for: AFP Alpha 1 antitrypsin No results found for: A1A NIKKO No results found for: NIKKO AMA No results found for: MITOAB ASMA No results found for: SMOOTHMUSCAB PT/INR No results for input(s): PROTIME, INR in the last 72 hours. Cancer Markers: CEA: No results for input(s): CEA in the last 72 hours. Ca 125: No results for input(s): CA125 in the last 72 hours. Ca 19-9: Invalid input(s): CA19-9 AFP: No results for input(s): AFP in the last 72 hours. Lactic acid:Invalid input(s): LACTIC ACID Radiology Review: No results found. Principal Problem: Gram negative septicemia (HCC) Active Problems: Elevated liver enzymes Diabetes mellitus (HCC) Ileostomy in place (HCC) Paroxysmal A-fib (HCC) Transaminasemia Panniculitis Supratherapeutic INR Hypomagnesemia Class 3 severe obesity due to excess calories with serious comorbidity and body mass index (BMI) of 50.0 to 59.9 in adult (HCC) HTN (hypertension) Coagulopathy (HCC) Chronic anticoagulation: Coumadin Sepsis (HCC) History of DVT (deep vein thrombosis) Acute encephalopathy Acute cholangitis Complicated UTI (urinary tract infection) Ascending cholangitis Morbid obesity (HCC) Resolved Problems: * No resolved hospital problems. * GI Impression: 1. Ascending cholangitis-ID on board-on meropenem 2. Choledochal lithiasis-s/P ERCP with stent placement and sphincterotomy, removal of stones and pus 3. Gram-negative septicemia 4. Iatrogenic coagulopathy-resolved. INR 1.0 5. 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 No further interventions from GI at this time 2. Continue with current medical management including antibiotic per ID 3. Recommend holding Coumadin x7 days with restart date of 09/04 given patient had sphincterotomy 4. Soft diet with ensures 5. Patient will need to follow-up in the office with Dr. Ramon in 2 weeks to be scheduled for stent removal in 4 weeks This plan was formulated in collaboration with Dr. Erica MD Thank you for allowing me to participate in the care of your patient. Please feel free to contact me with any questions or concerns. Alvaro Purcell APRN - [facility] This note was created with the assistance of a speech-recognition program. Although the intention is to generate a document that actually reflects the content of the visit, no guarantees can be provided that every mistake has been identified and corrected by editing. Associated attestation - Inessa Maldonado MD - 09/01/2020 3:01 PM EDT Attending Physican Attestation Patient seen and examined with Ms. Alvaro Purcell CNP. I have reviewed the above note and confirmed the tipton elements of the medical history and physical exam. I have discussed the findings, established the care plan and recommendations with Ms. Purcell and primary team. LFTs trending down, continue to trend LFTs Patient and symptomatic Advance diet as tolerated Patient will need a repeat EGD/ERCP for removal of stent in 4 to 6 weeks with . No further recommendations from GI standpoint. Please call GI for any questions or concerns. GI will sign off. Inessa Maldonado MD MD Gastroenterology Images from the original note were not included. [facility] Office: [phone] Epifanio Bradley DO, Jesus Poe DO, Lobito Hope DO, Lobo Wallace DO, Ibrahima Green MD, Rupinder Gonzalez MD, Josesito Aquino MD, Harvey Dotson MD, Eduardo Kolb MD, Dori Ag MD, Jose R Izaguirre MD, Trina Kay MD, Andrew Amezquita DO, Yumiko Casanova MD, Brody Pizano DO, Nacho Espino MD, Gelacio Epps DO, Main Ascencio MD, Milton James MD, Roxanne Martin MD, Guilherme Duff MD, Jasmyn Howard, PET CAREGIVER, Zara Ferreira, PET CAREGIVER, Estephanie Renee, PET CAREGIVER, Leana Martinez, CHECKER LOADER, Carlos Abdul, PET CAREGIVER, Nuris Walter, PET CAREGIVER, Keely Tomas, PET CAREGIVER, Hemal Waite, PET CAREGIVER, Richard Burrows, PET CAREGIVER, ZOË Gomez-C, Rita Jacobo, KIRA, Jeannine Barakat, PET CAREGIVER, Lila Baxter, PET CAREGIVER, Buffy Mueller, PET CAREGIVER, Ingrid Jarrett, PET CAREGIVER, Maty Nieves, PET CAREGIVER, Faiza Billings, PET CAREGIVER [facility]-PATIENT SERV[facility] Progress Note 09/01/2020 8:13 AM Name: Kamran Harley Acct: [id number] Room: 0419/0419-02 Day: 5 Admit Date: 08/27/2020 12:46 PM PCP: Jesus Chopra DO Code Status: Full Code Subjective: C/C: Fatigue and shortness of breath Interval History Status: Improved Patient seen and examined at bedside, significant diuresis after his dose of Lasix yesterday, 4L. Patient sitting in recliner today feeling much better and able to breathe better less swollen. Patient is adamant to go home with home care in the state of going to rehab this morning he seemed labored working to breathe and tachypneic he is afebrile overnight and able to maintain acceptable blood pressure heart rate. He feels he is very short of breath. He is flat in bed need to be repositioned. Labs and vitals in progress overnight reviewed with the nurse Brief History: Per critical care note Patient originally arrived to the hospital on 62 with chief complaints of fatigue, not feeling well, UTI symptoms and shortness of breath. Transferred to ICU on hospital day 1 as he became hypotensive. Found to have acute ascending cholangitis, choledocholithiasis complicated by E. coli bacteremia. Infectious disease was consulted originally was placed on vancomycin and Zosyn and then transitioned on to meropenem with daily amikacin. GI and general surgery were consulted. Patient underwent an ERCP with stent placement and sphincterotomy on the . General surgery agrees with ERCP with stent placement, sphincterotomy no further percutaneous drainage recommended. Patient's vital signs improved, currently off all pressor support, tolerating 2 L nasal cannula, afebrile, leukocytosis improving. Patient is stable to be transferred to floor unit Review of Systems: Review of Systems Constitutional: Positive for activity change, appetite change and fatigue. Negative for chills, diaphoresis and fever. HENT: Negative for congestion. Eyes: Negative for visual disturbance. Respiratory: Negative for cough, chest tightness and wheezing. Cardiovascular: Negative for chest pain, palpitations and leg swelling. Gastrointestinal: Negative for abdominal pain, blood in stool, constipation, diarrhea, nausea and vomiting. Genitourinary: Negative for difficulty urinating. Neurological: Positive for weakness. Negative for dizziness, light-headedness, numbness and headaches. All other systems reviewed and are negative. Medications: Allergies: Allergies Allergen Reactions Oxytetracycline Penicillins Had a penicillin shot when he was 7 years old and had hives. Tolerated Zosyn 08/27 without problems Suspect reaction was to the shot and not to the penicillin Sulfa Antibiotics Had hives Current Meds: Scheduled Meds: enoxaparin 40 mg Subcutaneous BID miconazole Topical BID meropenem 1,000 mg Intravenous Q8H insulin lispro 0-12 Units Subcutaneous 4x Daily AC & HS sodium chloride flush 5-40 mL Intravenous 2 times per day Continuous Infusions: sodium chloride dextrose PRN Meds: guaiFENesin, diphenhydrAMINE, LORazepam, sodium chloride, acetaminophen OR acetaminophen, magnesium sulfate, ondansetron OR ondansetron, polyethylene glycol, potassium chloride OR potassium alternative oral replacement OR potassium chloride, glucose, dextrose, glucagon (rDNA), dextrose, sodium chloride flush Data: Past Medical History: has a past medical history of Chronic anticoagulation: Coumadin, Coagulopathy (HCC), HLD (hyperlipidemia), HTN (hypertension), Hypomagnesemia, 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 Social History: reports that he has never smoked. He has never used smokeless tobacco. Family History: Family History Problem Relation Age of Onset Diabetes Mother Other Father Vitals: BP (!) 146/68 Pulse 87 Temp 99.3 F (37.4 C) (Temporal) Resp 27 Ht 6' 3 (1.905 m) Wt (!) 401 lb (181.9 kg) SpO2 98% BMI 50.12 kg/m Temp (24hrs), Av.1 F (36.7 C), Min:97.6 F (36.4 C), Max:99.3 F (37.4 C) Recent Labs 08/31/20 1140 08/31/20 1612 08/31/20 1957 09/01/20 0643 POCGLU 189* 210* 259* 222* I/O (24Hr): Intake/Output Summary (Last 24 hours) at 09/01/2020 0813 Last data filed at 09/01/2020 0601 Gross per 24 hour Intake 2572.89 ml Output 5325 ml Net -2752.11 ml Labs: Hematology: Recent Labs 08/30/20 0559 08/31/20 0507 09/01/20 0317 WBC 11.2 9.2 5.6 RBC 4.05* 4.21 4.24 HGB 11.2* 11.7* 11.6* HCT 36.6* 39.7* 39.3* MCV 90.4 94.3 92.7 MCH 27.7 27.8 27.4 MCHC 30.6 29.5 29.5 RDW 16.5* 17.0* 16.8* PLT 139 206 164 MPV 11.1 10.8 10.5 Chemistry: Recent Labs 08/30/2044408/31/2050609/01/207 NA -- 137 -- K -- 4.2 -- CL -- 107 -- CO2 -- 20 -- GLUCOSE -- 235* -- BUN -- 21 -- CREATININE -- 0.77 -- MG 1.9 2.1 1.9 ANIONGAP -- 10 -- LABGLOM -- >60 -- GFRAA -- >60 -- CALCIUM -- 8.0* -- Recent Labs 08/30/20 0846 08/30/20205608/31/20 05008/31/20 0640 08/31/20 1140 08/31/20 1612 08/31/20195609/01/20 03109/01/20 0643 PROT 5.1* -- 5.5* 5.6* -- -- -- -- 5.2* -- LABALBU 2.2* -- 2.2* 2.2* -- -- -- -- 2.0* -- AST 32 -- 32 35 -- -- -- -- 24 -- ALT 32 -- 28 29 -- -- -- -- 24 -- ALKPHOS 234* -- 251* 270* -- -- -- -- 232* -- BILITOT 3.35* -- 2.39* 2.40* -- -- -- -- 2.02* -- BILIDIR 2.93* -- 1.74* -- -- -- -- 1.39* -- POCGLU -- 206* -- 211* 189* 210* 259* -- 222* ABG: Lab Results Component Value Date POCPH 7.354 08/29/2020 POCPCO2 40.5 08/29/2020 POCPO2 146.3 08/29/2020 POCHCO3 22.6 08/29/2020 NBEA 3 08/29/2020 PBEA NOT REPORTED 08/29/2020 [id number] NOT REPORTED 08/29/2020 [id number] 99 08/29/2020 FIO2 40.0 08/29/2020 Lab Results Component Value Date/Time SPECIAL NOT REPORTED 08/27/2020 05:16 PM Lab Results Component Value Date/Time CULTURE (A) 08/27/2020 05:16 PM KLEBSIELLA PNEUMONIAE >[id number] CFU/ML THIS ORGANISM IS AN EXTENDED-SPECTRUM BETA-LACTAMASE STAFF VETERINARIAN AND RESISTANCE TO THERAPY WITH PENICILLINS, CEPHALOSPORINS AND AZTREONAM IS EXPECTED. THESE ORGANISMS GENERALLY REMAIN SUSCEPTIBLE TO CARBAPENEMS. CONSIDER ID CONSULTATION. Radiology: CT HEAD WO CONTRAST Result Date: 08/28/2020 No acute intracranial abnormality. CT ABDOMEN PELVIS W IV CONTRAST Additional Contrast? None Result Date: 08/27/2020 CTA OF THE CHEST: 1. No pulmonary embolism. 2. Dilation of the main pulmonary artery may signify pulmonary arterial hypertension. 3. No evidence of pneumonia. CT OF THE ABDOMEN AND PELVIS: 1. Edema surrounding the gallbladder, likely indicating acute cholecystitis. While no cholelithiasis is evident by CT, multiple calculi are seen in the common bile duct (choledocholithiasis). 2. Status post colectomy with right lower quadrant ileostomy. 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 No bowel wall thickening or obstruction. 3. Status post left inguinal hernia repair, with evidence of a recurrent shallow fat-containing hernia. No evidence of fat strangulation. US GALLBLADDER RUQ Result Date: 08/29/2020 Markedly limited examination due to patient body habitus and overlying bowel gas. Evaluation for cholelithiasis or acute cholecystitis is limited on this study. As a was inflammatory changes seen about the gallbladder the recent CT, if there is clinical concern for acute cholecystitis, HIDA scan may be considered for further evaluation. Patient's known choledocholithiasis is not well appreciated sonographically. The common bile duct appears normal in caliber measuring 5 mm. Increased echogenicity of the liver parenchyma, which may reflect underlying hepatic steatosis or other chronic liver parenchymal disease. XR CHEST PORTABLE Result Date: 08/30/2020 Improved aeration of lung compared to prior study interval removal of endotracheal tube. Right-sided central venous catheter remains unchanged. Persistent chronic interstitial markings bilaterally with no evidence for effusions. XR CHEST PORTABLE Result Date: 08/29/2020 Supportive tubing projects in normal position. Vascular congestion. Mild bibasilar atelectasis or airspace disease, with improved aeration on the left in the interval. XR CHEST PORTABLE Result Date: 08/28/2020 Possible mild pulmonary vascular congestion CT CHEST PULMONARY EMBOLISM W CONTRAST Result Date: 08/27/2020 CTA OF THE CHEST: 1. No pulmonary embolism. 2. Dilation of the main pulmonary artery may signify pulmonary arterial hypertension. 3. No evidence of pneumonia. CT OF THE ABDOMEN AND PELVIS: 1. Edema surrounding the gallbladder, likely indicating acute cholecystitis. While no cholelithiasis is evident by CT, multiple calculi are seen in the common bile duct (choledocholithiasis). 2. Status post colectomy with right lower quadrant ileostomy. 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 No bowel wall thickening or obstruction. 3. Status post left inguinal hernia repair, with evidence of a recurrent shallow fat-containing hernia. No evidence of fat strangulation. XR ABDOMEN FOR NG/OG/NE TUBE PLACEMENT Result Date: 08/29/2020 Nasogastric tube projects in normal position. Physical Examination: Physical Exam Vitals and nursing note reviewed. Constitutional: General: He is not in acute distress. Appearance: He is morbidly obese. He is ill-appearing. HENT: Head: Normocephalic and atraumatic. Eyes: Conjunctiva/sclera: Conjunctivae normal. Pupils: Pupils are equal, round, and reactive to light. Cardiovascular: Rate and Rhythm: Normal rate and regular rhythm. Heart sounds: No murmur heard. Pulmonary: Effort: Tachypnea and respiratory distress present. No accessory muscle usage. Breath sounds: No stridor. Decreased breath sounds and rales present. No wheezing or rhonchi. Abdominal: General: Bowel sounds are normal. There is no distension. Palpations: Abdomen is soft. Abdomen is not rigid. Tenderness: There is no abdominal tenderness. There is no guarding. Musculoskeletal: General: No tenderness. Skin: General: Skin is warm and dry. Findings: No erythema, lesion or rash. Neurological: Mental Status: He is alert and oriented to person, place, and time. Cranial Nerves: No cranial nerve deficit. Motor: No seizure activity. Psychiatric: Speech: Speech normal. Behavior: Behavior normal. Behavior is cooperative. Assessment: Hospital Problems Last Modified POA * (Principal) Gram negative septicemia (HCC) 08/30/2020 Yes Elevated liver enzymes 08/27/2020 Yes Diabetes mellitus (HCC) 08/27/[address] (HCC) 08/27/2020 Yes Paroxysmal A-fib (HCC) 08/27/2020 Yes Transaminasemia 08/27/2020 Yes Panniculitis 08/27/2020 Yes Supratherapeutic INR 08/27/2020 Yes Hypomagnesemia 08/27/2020 Yes Class 3 severe obesity due to excess calories with serious comorbidity and body mass index (BMI) of 50.0 to 59.9 in adult (HCC) 08/29/2020 Yes HTN (hypertension) 08/27/2020 Yes Coagulopathy (HCC) 08/27/2020 Yes Chronic anticoagulation: Coumadin 08/27/2020 Yes Sepsis (HCC) 08/27/2020 Yes History of DVT (deep vein thrombosis) 08/27/2020 Yes Acute encephalopathy 08/28/2020 Yes Acute cholangitis 08/30/2020 Yes Complicated UTI (urinary tract infection) 08/28/2020 Yes Ascending cholangitis 08/29/2020 Yes Morbid obesity (HCC) 08/30/2020 Yes Plan: -Give another dose of Lasix 40 IV today -BiPAP at night time -Stop fluids -Continue supplemental oxygen -Continue antibiotic. -Continue to hold warfarin. -Per GI warfarin to be held for 7 days, to be restarted 09/04 -Continue blood pressure and glycemic control -Continue other chronic meds for his chronic conditions.. -Appreciate GI and ID recommendations -Check electrolytes and replace as needed. -DVT and GI prophylaxis -Discussed with the patient -Place midline for IV abx -PT/OT -DC planning - Needs sleep study as OP , OHS -Will discharge when arrangements complete and ok with other services. Follow-up with PCP in one week, Jesus Chopra DO Notify PCP of discharge Harvey Dotson MD 09/01/2020 8:13 AM Occupational Therapy Occupational Therapy Initial Assessment Date: 08/31/2020 Patient Name: Kamran Harley : 1950 Copied from chart: The patient is a 70 y.o. male who presents with SOB, fatigue and hematuria, concerns for UTI from [place]. Urology consulted for lees management. Pt known to Dr Dick. Has chronic lees. Pt states he changes lees on his own. Last changed on Sunday 5 days ago. He sees Dr dick in [place]. Was rx abx for UTI Keflex that he had been taking. States when he gets a UTI he gets cloudy urine. No urology history in the chart. PT denies other urology history of stones, cancer, hematuria. PMH DM, afib, obesity, HTN. Currently on abx or UTI. Pt is SOB on exam but does answer questions. Sounds like has lees catheter due to BPH/retention issues. Has had since 2015. Date of Service: 08/31/2020 Discharge Recommendations: Patient would benefit from continued therapy after discharge OT Equipment Recommendations Equipment Needed: Yes Mobility Devices: ADL Assistive Devices ADL Assistive Devices: Transfer Tub Bench;Hand-held Shower;Scarf Gluer;Sock-Aid Hard;Long-handled Shoe Horn;Long-handled Sponge;Dressing Stick Equipment recommendations listed below are based on what the patient would need if they were able to return to prior living arrangements at the time of discharge. Assessment Performance deficits / Impairments: Decreased functional mobility ;Decreased endurance;Decreased ADL status;Decreased posture;Decreased balance;Decreased safe awareness;Decreased high-level IADLs;Decreased cognition Assessment: Pt was awake, alert, and agreeable to OT evaluation this date. Pt was pleasant and cooperative throughout evaluation, however, often presenting with confusion. Pts bed mobility is max A x 2 with HOB elevated. Pts functional transfers and functional mobility were unable to be assess secondary to safety concerns and lack of required baseline equipment. Pts UB ADLs are currently SBA for safety. Pts LB ADLs are currently max A. Pt would benefit from skilled occupational therapy services to address safe functional transfers, safe bed mobility, safe self-care, and DME training to increase pts independence and safety with ADL and IADL tasks upon discharge. Prognosis: Fair Decision Making: Medium Complexity Patient Education: OT role, OT POC, OT goals, safe bed mobility training, pursed lip breathing technique, and general safety. Pt was receptive to education and verbalized understanding. Follow-up education is recommended. REQUIRES OT FOLLOW UP: Yes Activity Tolerance Activity Tolerance: Patient Tolerated treatment well;Patient limited by pain Safety Devices Safety Devices in place: Yes Type of devices: Left in bed;Bed alarm in place;Call light within reach;Nurse notified;Gait belt Restraints Initially in place: No Patient Diagnosis(es): There were no encounter diagnoses. has a past medical history of Chronic anticoagulation: Coumadin, Coagulopathy (HCC), HLD (hyperlipidemia), HTN (hypertension), Hypomagnesemia, Ileostomy in place (HCC), Morbid obesity (HCC), Marni syndrome, Paroxysmal atrial fibrillation (HCC), and Type 2 diabetes mellitus (HCC). has a past surgical history that includes Colon surgery; ileostomy or jejunostomy; Hernia repair; Gastrostomy tube placement; ERCP (N/A, 08/28/2020); ERCP (08/28/2020); and ERCP (08/28/2020). Restrictions Restrictions/Precautions Restrictions/Precautions: General Precautions, Fall Risk (Up with assistance) Required Braces or Orthoses?: No Position Activity Restriction Other position/activity restrictions: s/p ERCP DILATION BALLOON (N/A ); ERCP STENT INSERTION; ERCP SPHINCTER/PAPILLOTOMY (08/28/2020) Subjective General Patient assessed for rehabilitation services?: Yes Family / Caregiver Present: No Diagnosis: Gram negative septicemia General Comment Comments: Pts primary RN Ok'd pt to be seen prior to entry into pts room. Pt was awake, alert, and agreeable to OT evaluation this date. Patient Currently in Pain: Yes Pain Assessment Pain Assessment: 0-10 Pain Level: 7 Pain Type: Chronic pain Pain Location: Shoulder Pain Orientation: Right;Left Pain Descriptors: Aching Pain Frequency: Continuous Non-Pharmaceutical Pain Intervention(s): Distraction;Emotional support;Repositioned;Therapeutic presence Response to Pain Intervention: Patient Satisfied Oxygen: 1.5L/O2 via NC (Pt reports no O2 use at home) Social/Functional History Social/Functional History Lives With: Alone Type of Home: Apartment Home Layout: One level Home Access: Level entry Bathroom Shower/Tub: Walk-in shower Bathroom Toilet: Standard Bathroom Equipment: Grab bars in shower Home Equipment: Wheelchair-electric ADL Assistance: Independent Homemaking Assistance: Independent Homemaking Responsibilities: No Ambulation Assistance: Needs assistance (Power w/c user) Transfer Assistance: Independent (with slide board) Active Band Saw Runner: No Patient's Band Saw Runner Info: Public transportation Mode of Transportation: Bus 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 Leisure & Hobbies: [employer] Additional Comments: Pt is questionable historian throughout evaluation with occasionally incosistent responses; Pt reports supportive sister that will assist PRN whenever pt calls out with cellphone; Pt reports using power w/c and slide board since bout of sepsis in 2016; Pt reports moderately active lifestyle from power w/c level Objective Vision: Impaired Vision Exceptions: Wears glasses at all times Hearing: Exceptions to WFL Hearing Exceptions: Hard of hearing/hearing concerns (deaf in R ear) Orientation Overall Orientation Status: Within Functional Limits Balance Sitting Balance: Contact guard assistance (Pt demo's ability to sit EOB in upright position ~ 15 minutes without LOB. CGA provided for safety throughout.) Standing Balance: Unable to assess(comment) (NATHAN secondary to baseline seated status) Functional Mobility Functional Mobility Comments: NATHAN secondary to baseline seated status ADL Feeding: Modified independent ;Setup;Increased time to complete Grooming: Modified independent ;Setup;Increased time to complete UE Bathing: Stand by assistance;Setup;Increased time to complete LE Bathing: Maximum assistance;Setup;Increased time to complete UE Dressing: Stand by assistance;Setup;Increased time to complete LE Dressing: Maximum assistance;Setup;Increased time to complete Toileting: Maximum assistance;Setup;Increased time to complete Additional Comments: Pt demo's decreased ability to complete functional reach to B feet for completion of LE ADL tasks; Pt unable to provide explanation regarding typical LB ADL routine/assist level Tone RUE RUE Tone: Normotonic Tone LUE LUE Tone: Normotonic Coordination Movements Are Fluid And Coordinated: Yes Bed mobility Supine to Sit: Maximum assistance;2 Person assistance (for trunk and BLE progression) Sit to Supine: Maximum assistance;2 Person assistance (for trunk and BLE progression) Scooting: Maximal assistance;2 Person assistance (for trunk and BLE progression) Comment: HOB elevated ~ 45 degrees Transfers Slide Board: Unable to assess (secondary to lack of appropriate equipment (slideboard/wheelchair)) Transfer Comments: NATHAN secondary to baseline seated status Cognition Overall Cognitive Status: Exceptions Arousal/Alertness: Delayed responses to stimuli Following Commands: Follows one step commands with increased time;Follows one step commands with repetition Attention Span: Attends with cues to redirect Safety Judgement: Decreased awareness of need for assistance Insights: Decreased awareness of deficits Initiation: Requires cues for some Sequencing: Requires cues for some Sensation Overall Sensation Status: (Pt denies numbness and tingling) LUE AROM (degrees) LUE AROM : WFL Left Hand AROM (degrees) Left Hand AROM: WFL RUE AROM (degrees) RUE AROM : WFL Right Hand AROM (degrees) Right Hand AROM: WFL LUE Strength Gross LUE Strength: WFL L Hand General: 4+/5 LUE Strength Comment: Grossly 4+/5 RUE Strength Gross RUE Strength: WFL R Hand General: 4+/5 RUE Strength Comment: Grossly 4+/5 Plan Plan Times per week: 3-4 x/wk Current Treatment Recommendations: Patient/Caregiver Education & Training, Home Management Training, Equipment Evaluation, Education, & procurement, Endurance Training, Pain Management, Safety Education & Training, Self-Care / ADL, Wheelchair Mobility Training, Positioning AM-PAC Score AM-PAC Inpatient Daily Activity Raw Score: 17 (08/31/201332) AM-PAC Inpatient ADL T-Scale Score : 37.26 (08/31/201332) ADL Inpatient CMS 0-100% Score: 50.11 (08/31/201332) ADL Inpatient CMS G-Code Modifier : CK (08/31/201332) Goals Short term goals Time Frame for Short term goals: By discharge, pt will; Short term goal 1: demo all bed mobility maneuvers mod A with use of appropriate AD's to decrease risk of pressure injuries Short term goal 2: demo sitting tolerance EOB SBA x 20 minutes to improve positioning for participation in seated ADL tasks Short term goal 3: demo UB ADLs and grooming tasks mod I Short term goal 4: demo LB ADLs and toileting tasks mod A with use of AE and appropriate DME PRN Short term goal 5: demo functional lateral transfer with use of transfer board max A to decrease caregiver burden of care Short term goal 6: demo good safety during functional interventions with < 2 VC's Therapy Time Individual Concurrent Group Co-treatment Time In 1010 Time Out 1030 Minutes 20 Timed Code Treatment Minutes: 10 Minutes Co-eval with PT Lauren Kam/AICHA Images from the original note were not included. 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, right ileostomy Inguinal hernia repair with herniated fat no strangulation Allergy to penicillin 7 years old had a shot, most likely reactive to the shots but not to the penicillin product-tolerated Zosyn 08/27 Discussion / summary of stay / plan of care Presents with septic shock and acute encephalopathy, progressing during his admission, gram-negative septicemia seems to be related to a complicated UTI but also to an obstructive cholangitis Patient has progressed into severe sepsis during his admission and hence he is at risk to develop multiorgan failure He did have a history of UTIs, multiple antibiotic intake in the past and hence he is at risk for MDRO gram-negative Recommendations Stop the vancomycin Stop Zosyn 08/28 08/28 meropenem better address the cholangitis/ bacteremia / ESBL UTI Plan 10 days AB till 09/06 DC planning Infection Control Recommendations [place] Precautions Antimicrobial Stewardship Recommendations Simplification of therapy Targeted therapy Per Kg dosing Coordination ofOutpatient Care: Estimated Length of IV antimicrobials: Patient will need Midline / picc Catheter Insertion: Patient will need SNF: Patient will need outpatient wound care: History of Present Illness: Initial history: Kamran Harley is a 70 y.o.-year-old male obese phone straight cath, states that 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 He feels he has had some dysuria and is concerned he might be having a UTI. Came to the ER he was having fever, blood cultures taken and he was sent to the floor Today he is getting short of breath lethargic, tachycardic, hypotensive. He was started on vancomycin and Zosyn, since blood cultures are showing gram-negative rods Urine culture remains pending gram-negative rods CT of the abdomen showed normal kidneys, gallbladder showed multiple stones with some obstruction, suspect there is for ascending cholangitis, there is edema around the gallbladder as well GI contemplating ERCP once more stable Patient being transferred to the ICU 08/28: Discussed with GI, they will defer ERCP till he stabilizes, agree with cholecystostomy in the meantime to decompress Patient sleepy arousable very appropriate, discussed with him his allergy to penicillin as stated in the impression section. He tolerated Zosyn so far without any hives He does have a tenderness over the right upper quadrant Multiple over both knees Lees with hemal urine but no cloudiness Interval changes Patient Vitals for the past 8 hrs: BP Temp Temp src Pulse Resp SpO2 Weight 08/31/20 1115 78 27 100 % 08/31/20 1112 29 08/31/20 1100 (!) 168/92 98.4 F (36.9 C) Oral 76 19 94 % 08/31/20 0800 (!) 149/76 99.3 F (37.4 C) Temporal 72 25 100 % 08/31/20 0645 (!) 401 lb (181.9 kg) post ERCP 08/28 Stones extracted and Biliary sphincterotomy done BC still pend GNR but U cx ESBL Kleb Cholecystostomy could not be done 05/28 WBC 18 up likely a reaction to the ERCP Creat a little up 1.28 08/31 - Sleepy and bypap on - abd soft and not in distress Labs reviewed One BC is now showing kleb ESBL and E coli The other BC e coli No fever blood cultures are showing E. coli sensitive to ceftriaxone and ESBL negative, most likely originating from the common bile duct Repeat blood cultures pending Summary of relevant labs: Labs: WBC 15 16 - 18 - 11 - 9.2 Creatinine 0.75 - 128 AST 49 - 56 AST 50 - 42 Bilirubin 5.98 Micro: Blood culture 08/27 gram-negative rods next 2 urine culture 08/27 kLEB esbl MRSA nasal + swab Imaging: CXR Mild bibasilar atelectasis or airspace disease, with improved aeration on the left in the interval. US GB 08/28 Markedly limited examination due to patient body habitus and overlying bowel gas. Evaluation for cholelithiasis or acute cholecystitis is limited on this study. As a was inflammatory changes seen about the gallbladder the recent CT, if there is clinical concern for acute cholecystitis, HIDA scan may be considered for further evaluation. Patient's known choledocholithiasis is not well appreciated sonographically. The common bile duct appears normal in caliber measuring 5 mm. Increased echogenicity of the liver parenchyma, which may reflect underlying hepatic steatosis or other chronic liver parenchymal disease ERCP 08/28 - PROCEDURES PERFORMED: 1. Transoral Endoscopic retrograde cholangiopancreatography (ERCP). 2. Cholangiogram 3. Biliary sphincterotomy 4. Balloon sweeps with extraction of stone and pus 5. Placement of 10 F x 7 cm plastic biliary stent 6. Fluoroscopy POSTPROCEDURE DIAGNOSIS: CBD stones and sludge Retained gastric contents CT of the head no acute abnormality 08/28 CT chest 08/27 no pulmonary emboli, dilatation of the main pulmonary artery that might reflect pulmonary arterial hypertension, no pneumonia H with edema surrounding the gallbladder suggesting acute cholecystitis with no cholelithiasis on CT but multiple stones are seen in the common bile duct Right lower quadrant ileostomy with post colectomy Redundant loop of ileum in the parastomal hernia No bowel thickening Post left inguinal hernia repair, with fat-containing persistent hernia but no strangulation Kidneys unremarkable I have personally reviewed the past medical history, past surgical history, medications, social history, and family history, and I haveupdated the database accordingly. Allergies: Oxytetracycline, Penicillins, and Sulfa antibiotics Review of Systems: Review of Systems Constitutional: Positive for fatigue. Negative for activity change, appetite change and fever. HENT: Negative for congestion. Eyes: Negative for itching and visual disturbance. Respiratory: Negative for apnea, cough and shortness of breath. Cardiovascular: Negative for chest pain. Gastrointestinal: Negative for abdominal distention and abdominal pain. Endocrine: Negative for heat intolerance. Genitourinary: Negative for dysuria and hematuria. Musculoskeletal: Negative for arthralgias. Skin: Negative for color change. Allergic/Immunologic: Negative for immunocompromised state. Neurological: Positive for weakness. Negative for dizziness. Hematological: Does not bruise/bleed easily. Psychiatric/Behavioral: Negative for agitation and decreased concentration. Physical Examination : Physical Exam Constitutional: General: He is not in acute distress. Appearance: He is obese. He is not ill-appearing. Comments: arousable HENT: Head: Normocephalic and atraumatic. Nose: Nose normal. Mouth/Throat: Mouth: Mucous membranes are moist. Eyes: General: No scleral icterus. Conjunctiva/sclera: Conjunctivae normal. Cardiovascular: Rate and Rhythm: Normal rate and regular rhythm. Heart sounds: Normal heart sounds. No murmur heard. Pulmonary: Effort: No respiratory distress. Breath sounds: Normal breath sounds. Abdominal: General: There is no distension. Palpations: Abdomen is soft. Tenderness: There is no abdominal tenderness. Comments: Right ileostomy with herniated loops Genitourinary: Comments: Urine hemal Musculoskeletal: General: No tenderness or signs of injury. Cervical back: Neck supple. No tenderness. Skin: General: Skin is warm. Coloration: Skin is not pale. Findings: No erythema. Neurological: General: No focal deficit present. Mental Status: He is oriented to person, place, and time. Cranial Nerves: No cranial nerve deficit. Psychiatric: Mood and Affect: Mood normal. Behavior: Behavior normal. Thought Content: Thought content normal. Past Medical History: Past Medical History: Diagnosis Date Chronic anticoagulation: Coumadin Coagulopathy (HCC) HLD (hyperlipidemia) HTN (hypertension) Hypomagnesemia 08/27/[address] (HCC) Morbid obesity (HCC) [place] syndrome Paroxysmal atrial fibrillation (HCC) Type 2 diabetes mellitus (HCC) Past Surgical History: Past Surgical History: Procedure Laterality Date COLON SURGERY Subtotal colectomy ERCP N/A 08/28/2020 ERCP DILATION BALLOON performed by Alexis Ramon MD at [facility] OR ERCP 08/28/2020 ERCP STENT INSERTION performed by Alexis Ramon MD at [facility] OR ERCP 08/28/2020 ERCP SPHINCTER/PAPILLOTOMY performed by Alexis Ramon MD at [facility] OR GASTROSTOMY TUBE PLACEMENT HERNIA REPAIR ILEOSTOMY OR JEJUNOSTOMY Medications: enoxaparin 40 mg Subcutaneous BID miconazole Topical BID meropenem 1,000 mg Intravenous Q8H insulin lispro 0-12 Units Subcutaneous 4x Daily AC & HS sodium chloride flush 5-40 mL Intravenous 2 times per day Social History: Social History Socioeconomic History Marital status: Unknown Spouse name: Not on file Number of children: Not on file Years of education: Not on file Highest education level: Not on file Occupational History Not on file Tobacco Use Smoking status: Never Smoker Smokeless tobacco: Never Used Substance and Sexual Activity Alcohol use: Not on file Drug use: Not on file Sexual activity: Not on file Other Topics Concern Not on file Social History Narrative Not on file Social Determinants of Health Financial Resource Strain: Difficulty of Paying Living Expenses: Food Insecurity: Worried About Running Out of Food in the Last Year: Ran Out of Food in the Last Year: Transportation Needs: Lack of Transportation (Medical): Lack of Transportation (Non-Medical): Physical Activity: Days of Exercise per Week: Minutes of Exercise per Session: Stress: Feeling of Stress : Social Connections: Frequency of Communication with Friends and Family: Frequency of Social Gatherings with Friends and Family: Attends [employer] Services: Active Member of Clubs or Organizations: Attends Club or Organization Meetings: Marital Status: Intimate Partner Violence: Fear of Current or Ex-Partner: Emotionally Abused: Physically Abused: Sexually Abused: Family History: Family History Problem Relation Age of Onset Diabetes Mother Other Father Medical Decision Making: I have independently reviewed/ordered the following labs: CBC with Differential: Recent Labs 08/30/20 0559 08/31/20 0507 WBC 11.2 9.2 HGB 11.2* 11.7* HCT 36.6* 39.7* PLT 139 206 BMP: Recent Labs 08/28/20 1355 08/29/20 0542 08/30/20 0445 08/31/20 0507 NA 136 136 -- -- K 3.6* 4.2 -- -- CL 98 104 -- -- CO2 28 19* -- -- BUN 25* 30* -- -- CREATININE 1.11 1.28* -- -- MG -- 1.9 1.9 2.1 Hepatic Function Panel: Recent Labs 08/30/20 0846 08/31/20 0507 PROT 5.1* 5.6* LABALBU 2.2* 2.2* BILIDIR 2.93* 1.74* IBILI 0.42 0.66 BILITOT 3.35* 2.40* ALKPHOS 234* 270* ALT 32 29 AST 32 35 No results for input(s): RPR in the last 72 hours. No results for input(s): HIV in the last 72 hours. No results for input(s): BC in the last 72 hours. Lab Results Component Value Date CREATININE 1.28 08/29/2020 GLUCOSE 220 08/29/2020 Detailed results: Thank you for allowing us to participate in the care of this patient.Please call with questions. This note is created with the assistance of a speech recognition program. While intending to generate adocument that actually reflects the content of the visit, the document can still have some errors including those of syntax and sound a like substitutions which may escape proof reading. It such instances, actual meaningcan be extrapolated by contextual diversion. Samy Russell MD Office: [facility] / office [phone] Physical Therapy Facility/Department: [address] STE[address] Initial Assessment NAME: Kamran Harley : 1950 Date of Service: 08/31/2020 Per critical care note Patient originally arrived to the hospital on 618 with chief complaints of fatigue, not feeling well, UTI symptoms and shortness of breath. Transferred to ICU on hospital day 1 as he became hypotensive. Found to have acute ascending cholangitis, choledocholithiasis complicated by E. coli bacteremia. Infectious disease was consulted originally was placed on vancomycin and Zosyn and then transitioned on 619 to meropenem with daily amikacin. GI and general surgery were consulted. Patient underwent an ERCP with stent placement and sphincterotomy on the . General surgery agrees with ERCP with stent placement, sphincterotomy no further percutaneous drainage recommended. Patient's vital signs improved, currently off all pressor support, tolerating 2 L nasal cannula, afebrile, leukocytosis improving. Patient is stable to be transferred to floor unit Discharge Recommendations: Patient would benefit from continued therapy after discharge Assessment Body structures, Functions, Activity limitations: Decreased functional mobility ;Decreased endurance;Decreased strength Assessment: The pt transferred supine to sit with max assist x 2. He was able to maintain his balance once in position. He could benefit from a continuation of PT for transfers and strengthening following his DC Prognosis: Good Decision Making: Medium Complexity PT Education: Goals;PT Role;Plan of Care REQUIRES PT FOLLOW UP: Yes Activity Tolerance Activity Tolerance: Patient limited by fatigue;Patient limited by endurance Patient Diagnosis(es): There were no encounter diagnoses. has a past medical history of Chronic anticoagulation: Coumadin, Coagulopathy (HCC), HLD (hyperlipidemia), HTN (hypertension), Hypomagnesemia, Ileostomy in place (HCC), Morbid obesity (HCC), Marni syndrome, Paroxysmal atrial fibrillation (HCC), and Type 2 diabetes mellitus (HCC). has a past surgical history that includes Colon surgery; ileostomy or jejunostomy; Hernia repair; Gastrostomy tube placement; ERCP (N/A, 08/28/2020); ERCP (08/28/2020); and ERCP (08/28/2020). Restrictions Restrictions/Precautions Required Braces or Orthoses?: No Position Activity Restriction Other position/activity restrictions: Up with assist Vision/Hearing Vision: Impaired Vision Exceptions: Wears glasses at all times Hearing: Exceptions to WFL Hearing Exceptions: Hard of hearing/hearing concerns (deaf in R ear) Subjective General Patient assessed for rehabilitation services?: Yes Response To Previous Treatment: Not applicable Family / Caregiver Present: No Follows Commands: Within Functional Limits Subjective Subjective: RN and pt agreeable to PT eval Pain Screening Patient Currently in Pain: Denies Pain Assessment Pain Assessment: 0-10 Pain Level: 7 Pain Location: Shoulder Pain Orientation: Right;Left Vital Signs Patient Currently in Pain: Denies Orientation Orientation Overall Orientation Status: Within Functional Limits Social/Functional History Social/Functional History Lives With: Alone Type of Home: Apartment Home Layout: One level Home Access: Level entry Bathroom Shower/Tub: Walk-in shower Bathroom Toilet: Standard Bathroom Equipment: Grab bars in shower Home Equipment: Wheelchair-electric ADL Assistance: Independent Homemaking Assistance: Independent Homemaking Responsibilities: No Ambulation Assistance: Needs assistance (Power w/c user) Transfer Assistance: Independent (with slide board) Active Band Saw Runner: No Patient's Band Saw Runner Info: Public transportation Mode of Transportation: Bus 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 Leisure & Hobbies: [email or web address] Additional Comments: Pt reports supportive sister that will assist PRN whenever pt calls out with cellphone; Pt reports using power w/c and slide board since bout of sepsis in 2016; Pt reports moderately active lifestyle from power w/c level Cognition Objective AROM RLE (degrees) RLE AROM: WFL AROM LLE (degrees) LLE AROM : WFL AROM RUE (degrees) RUE AROM : WNL AROM LUE (degrees) LUE AROM : WNL Strength RLE Comment: 2+/5 Strength LLE Comment: 2+/5 Strength RUE Strength RUE: WFL Strength LUE Strength LUE: WFL Sensation Overall Sensation Status: WFL Bed mobility Supine to Sit: Maximum assistance;2 Person assistance Sit to Supine: Maximum assistance;2 Person assistance Scooting: Maximal assistance;2 Person assistance Ambulation Ambulation?: No Ambulation 1 Surface: level tile Assistance: Maximum assistance;2 Person assistance Quality of Gait: supine to sit with max assist x 2 Balance Posture: Good Sitting - Static: Fair Sitting - Dynamic: Poor Plan Plan Times per week: 5-6x wk Current Treatment Recommendations: Strengthening, Functional Mobility Training, Safety Education & Training, Endurance Training, Transfer Training, Balance Training Safety Devices Type of devices: Nurse notified, Left in bed, Call light within reach G-Code OutComes Score AM-PAC Score AM-PAC Inpatient Mobility Raw Score : 9 (08/31/201216) AM-PAC Inpatient T-Scale Score : 30.55 (08/31/201216) Mobility Inpatient CMS 0-100% Score: 81.38 (08/31/201216) Mobility Inpatient CMS G-Code Modifier : CM (08/31/201216) Goals Short term goals Time Frame for Short term goals: 10 visits Short term goal 1: supine to sit with SBA Short term goal 2: sliding board transfer with CGA Short term goal 3: to be independent with bed mobility Short term goal 4: 20 min exercise program x SBA Patient Goals Patient goals : Return home Therapy Time Individual Concurrent Group Co-treatment Time In 1000 Time Out 1030 Minutes 30 Michael Bruce PT [facility] Progress Note Kamran Harley is a 70 y.o. male patient. Hospitalization Day:4 Chief consult reason: Elevated liver enzymes Subjective: Patient seen and examined. Was moved out of ICU to stepdown floor. Patient appears more dyspneic today with shallow fast breathing-states he just worked with physical therapy LFTs relatively the same. Leukocytosis resolved VITALS: BP (!) 168/92 Pulse 78 Temp 98.4 F (36.9 C) (Oral) Resp 27 Ht 6' 3 (1.905 m) Wt (!) 401 lb (181.9 kg) SpO2 100% BMI 50.12 kg/m TEMPERATURE: Current - Temp: 98.4 F (36.9 C); Max - Temp Av.4 F (36.9 C) Min: 97.6 F (36.4 C) Max: 99.3 F (37.4 C) Physical Assessment: General appearance: Awake Mental Status: Alert and oriented x4 Lungs: Managed in bases Heart: regular rate and rhythm, no murmur Abdomen: soft, nontender, nondistended, normal bowel sounds, no masses, hepatomegaly, splenomegaly Extremities: no edema, redness, tenderness in the calves Skin: no gross lesions, rashes, induration Data Review: Labs and Imaging: CBC: Recent Labs 08/29/20 0542 08/30/20 0559 08/31/20 0507 WBC 18.1* 11.2 9.2 HGB 11.6* 11.2* 11.7* MCV 89.5 90.4 94.3 RDW 16.0* 16.5* 17.0* PLT 123* 139 206 ANEMIA STUDIES: No results for input(s): LABIRON, TIBC, FERRITIN, [id number], FOLATE, OCCULTBLD in the last 72 hours. BMP: Recent Labs 08/29/20 0542 08/31/20 0507 NA 136 137 K 4.2 4.2 CL 104 107 CO2 19* 20 BUN 30* 21 CREATININE 1.28* 0.77 GLUCOSE 220* 235* CALCIUM 7.6* 8.0* LFTS: Recent Labs 08/29/20 0542 08/30/20 0846 08/31/20 0507 ALKPHOS 263* 234* 251* 270* ALT 42* 32 28 29 AST 56* 32 32 35 BILITOT 8.87* 3.35* 2.39* 2.40* BILIDIR 7.93* 2.93* 1.74* LABALBU 2.2* 2.2* 2.2* 2.2* Amylase/Lipase and Ammonia: No results for input(s): AMYLASE, LIPASE, AMMONIA in the last 72 hours. Acute Hepatitis Panel: No results found for: HEPBSAG, HEPCAB, HEPBIGM, HEPAIGM HCV Genotype: No results found for: HEPATITISCGENOTYPE HCV Quantitative: No results found for: HCVQNT LIVER WORK UP: AFP No results found for: AFP Alpha 1 antitrypsin No results found for: A1A NIKKO No results found for: NIKKO AMA No results found for: MITOAB ASMA No results found for: SMOOTHMUSCAB PT/INR Recent Labs 08/28/20 1506 08/28/20 1803 08/29/20 0542 PROTIME 19.8* 17.9* 11.1 INR 2.0 1.8 1.0 Cancer Markers: CEA: No results for input(s): CEA in the last 72 hours. Ca 125: No results for input(s): CA125 in the last 72 hours. Ca 19-9: Invalid input(s): CA19-9 AFP: No results for input(s): AFP in the last 72 hours. Lactic acid:Invalid input(s): LACTIC ACID Radiology Review: No results found. Principal Problem: Gram negative septicemia (HCC) Active Problems: Elevated liver enzymes Diabetes mellitus (HCC) Ileostomy in place (HCC) Paroxysmal A-fib (HCC) Transaminasemia Panniculitis Supratherapeutic INR Hypomagnesemia Class 3 severe obesity due to excess calories with serious comorbidity and body mass index (BMI) of 50.0 to 59.9 in adult (HCC) HTN (hypertension) Coagulopathy (HCC) Chronic anticoagulation: Coumadin Sepsis (HCC) History of DVT (deep vein thrombosis) Acute encephalopathy Acute cholangitis Complicated UTI (urinary tract infection) Ascending cholangitis Morbid obesity (HCC) Resolved Problems: * No resolved hospital problems. * GI Impression: 1. Ascending cholangitis-ID on board-on meropenem 2. Choledochal lithiasis-s/P ERCP with stent placement and sphincterotomy, removal of stones and pus 3. Gram-negative septicemia 4. Iatrogenic coagulopathy-resolved. INR 1.0 5. 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 No change in plan for today 2. Continue with current medical management including antibiotic per ID 3. Recommend holding Coumadin x7 days with restart date of 09/04 given patient had sphincterotomy 4. Daily labs including CBC, BMP, LFT, INR 5. Full liquid diet with Ensure supplements 6. Will follow closely This plan was formulated in collaboration with Dr. Erica MD Thank you for allowing me to participate in the care of your patient. Please feel free to contact me with any questions or concerns. FEMI Clark CNP [facility] This note was created with the assistance of a speech-recognition program. Although the intention is to generate a document that actually reflects the content of the visit, no guarantees can be provided that every mistake has been identified and corrected by editing. Attending Physican Attestation Patient seen and examined with Ms. Alvaro Purcell CNP. I have reviewed the above note and confirmed the [place] elements of the medical history and physical exam. I have discussed the findings, established the care plan and recommendations with Ms. Purcell and primary team. Inessa Maldonado MD MD Gastroenterology Images from the original note were not included. [facility] Office: [phone] Epifanio Bradley DO, Jesus Poe DO, Lobito Hope DO, Lobo Wallace DO, Ibrahima Green MD, Rupinder Gonzalez MD, Josesito Aquino MD, Harvey Dotson MD, Eduardo Kolb MD, Dori Ag MD, Jose R Izaguirre MD, Trina Kay MD, Andrew Amezquita DO, Yumiko Casanova MD, Brody Pizano DO, Nacho Espino MD, Gelacio Epps DO, Main Ascencio MD, Milton James MD, Roxanne Martin MD, Guilherme Duff MD, Jasmyn Howard CNP, Zara Ferreira CNP, Estephanie Renee PET CAREGIVER, Leana Martinez, CHECKER LOADER, Carlos Abdul, PET CAREGIVER, Nuris Walter, PET CAREGIVER, Keely Tomas PET CAREGIVER, Hemal Waite PET CAREGIVER, Richard Burrows CNP, Tye Castro PA-C, Rita Jacobo, KIRA, Jeannine Barakat, PET CAREGIVER, Lila Baxter, PET CAREGIVER, Buffy Mueller, PET CAREGIVER, Ingrid Jarrett, PET CAREGIVER, Maty Nieves, PET CAREGIVER, Faiza Billings, PET CAREGIVER [facility] IN-PATIENT SERVICE [facility] Progress Note 08/31/2020 7:57 AM Name: Kamran Harley Acct: [id number] Room: [address] [place] [address] Day: 4 Admit Date: 08/27/2020 12:46 PM PCP: Jesus Chopra DO Code Status: Full Code Subjective: C/C: Fatigue and shortness of breath Interval History Status: not changed. Patient seen and examined at bedside, he is a transfer out of the ICU overnight, had a similar cholangitis and needed ERCP with stent placement or removal of CBD stone as well was intubated and successfully extubated on 08/29. This morning he seemed labored working to breathe and tachypneic he is afebrile overnight and able to maintain acceptable blood pressure heart rate. He feels he is very short of breath. He is flat in bed need to be repositioned. Labs and vitals in progress overnight reviewed with the nurse Brief History: Per critical care note Patient originally arrived to the hospital on with chief complaints of fatigue, not feeling well, UTI symptoms and shortness of breath. Transferred to ICU on hospital day 1 as he became hypotensive. Found to have acute ascending cholangitis, choledocholithiasis complicated by E. coli bacteremia. Infectious disease was consulted originally was placed on vancomycin and Zosyn and then transitioned on to meropenem with daily amikacin. GI and general surgery were consulted. Patient underwent an ERCP with stent placement and sphincterotomy on the . General surgery agrees with ERCP with stent placement, sphincterotomy no further percutaneous drainage recommended. Patient's vital signs improved, currently off all pressor support, tolerating 2 L nasal cannula, afebrile, leukocytosis improving. Patient is stable to be transferred to floor unit Review of Systems: Review of Systems Constitutional: Positive for activity change, appetite change and fatigue. Negative for chills, diaphoresis and fever. HENT: Negative for congestion. Eyes: Negative for visual disturbance. Respiratory: Positive for shortness of breath. Negative for cough, chest tightness and wheezing. Cardiovascular: Negative for chest pain, palpitations and leg swelling. Gastrointestinal: Negative for abdominal pain, blood in stool, constipation, diarrhea, nausea and vomiting. Genitourinary: Negative for difficulty urinating. Neurological: Positive for weakness. Negative for dizziness, light-headedness, numbness and headaches. All other systems reviewed and are negative. Medications: Allergies: Allergies Allergen Reactions Oxytetracycline Penicillins Had a penicillin shot when he was 7 years old and had hives. Tolerated Zosyn 08/27 without problems Suspect reaction was to the shot and not to the penicillin Sulfa Antibiotics Had hives Current Meds: Scheduled Meds: enoxaparin 40 mg Subcutaneous BID miconazole Topical BID meropenem 1,000 mg Intravenous Q8H insulin lispro 0-12 Units Subcutaneous 4x Daily AC & HS sodium chloride flush 5-40 mL Intravenous 2 times per day Continuous Infusions: sodium chloride sodium chloride 100 mL/hr at 08/30/20 181 dextrose PRN Meds: guaiFENesin, diphenhydrAMINE, LORazepam, sodium chloride, acetaminophen OR acetaminophen, magnesium sulfate, ondansetron OR ondansetron, polyethylene glycol, potassium chloride OR potassium alternative oral replacement OR potassium chloride, glucose, dextrose, glucagon (rDNA), dextrose, sodium chloride flush Data: Past Medical History: has a past medical history of Chronic anticoagulation: Coumadin, Coagulopathy (HCC), HLD (hyperlipidemia), HTN (hypertension), Hypomagnesemia, 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 Social History: reports that he has never smoked. He has never used smokeless tobacco. Family History: Family History Problem Relation Age of Onset Diabetes Mother Other Father Vitals: BP 129/62 Pulse 82 Temp 98.5 F (36.9 C) (Oral) Resp 25 Ht 6' 3 (1.905 m) Wt (!) 401 lb (181.9 kg) SpO2 97% BMI 50.12 kg/m Temp (24hrs), Av F (36.7 C), Min:97.4 F (36.3 C), Max:98.6 F (37 C) Recent Labs 08/30/20 1112 08/30/20 1711 08/30/20205608/31/20 0640 POCGLU 125* 166* 206* 211* I/O (24Hr): Intake/Output Summary (Last 24 hours) at 08/31/2020 0757 Last data filed at 08/31/2020 0651 Gross per 24 hour Intake 4475.83 ml Output 3315 ml Net 1160.83 ml Labs: Hematology: Recent Labs 08/28/20 1506 08/28/20 1803 08/29/20 0542 08/30/20 0559 08/31/20 0507 WBC -- -- 18.1* 11.2 9.2 RBC -- -- 4.21 4.05* 4.21 HGB -- -- 11.6* 11.2* 11.7* HCT -- -- 37.7* 36.6* 39.7* MCV -- -- 89.5 90.4 94.3 MCH -- -- 27.6 27.7 27.8 MCHC -- -- 30.8 30.6 29.5 RDW -- -- 16.0* 16.5* 17.0* PLT -- -- 123* 139 206 MPV -- -- 11.8 11.1 10.8 INR 2.0 1.8 1.0 -- -- Chemistry: Recent Labs 08/28/20 1355 08/29/20 0542 08/30/20 0445 08/31/20 0507 NA 136 136 -- -- K 3.6* 4.2 -- -- CL 98 104 -- -- CO2 28 19* -- -- GLUCOSE 183* 220* -- -- BUN 25* 30* -- -- CREATININE 1.11 1.28* -- -- MG -- 1.9 1.9 2.1 ANIONGAP 10 13 -- -- LABGLOM >60 56* -- -- GFRAA >60 >60 -- -- CALCIUM 8.7 7.6* -- -- Recent Labs 08/29/20 0542 08/29/20 2122 08/30/20 0820 08/30/20 0846 08/30/20 1112 08/30/20 1711 08/30/20 2057 08/31/20 0507 08/31/20 0640 PROT 5.2* -- -- 5.1* -- -- -- 5.6* -- LABALBU 2.2* -- -- 2.2* -- -- -- 2.2* -- AST 56* -- -- 32 -- -- -- 35 -- ALT 42* -- -- 32 -- -- -- 29 -- ALKPHOS 263* -- -- 234* -- -- -- 270* -- BILITOT 8.87* -- -- 3.35* -- -- -- 2.40* -- BILIDIR 7.93* -- -- 2.93* -- -- -- 1.74* -- POCGLU -- 133* 126* -- 125* 166* 206* -- 211* ABG: Lab Results Component Value Date POCPH 7.354 08/29/2020 POCPCO2 40.5 08/29/2020 POCPO2 146.3 08/29/2020 POCHCO3 22.6 08/29/2020 NBEA 3 08/29/2020 PBEA NOT REPORTED 08/29/2020 BLB9ZXA NOT REPORTED 08/29/2020 TXDI1OSR 99 08/29/2020 FIO2 40.0 08/29/2020 Lab Results Component Value Date/Time SPECIAL NOT REPORTED 08/27/2020 05:16 PM Lab Results Component Value Date/Time CULTURE (A) 08/27/2020 05:16 PM KLEBSIELLA PNEUMONIAE >427700 CFU/ML THIS ORGANISM IS AN EXTENDED-SPECTRUM BETA-LACTAMASE STAFF VETERINARIAN AND RESISTANCE TO THERAPY WITH PENICILLINS, CEPHALOSPORINS AND AZTREONAM IS EXPECTED. THESE ORGANISMS GENERALLY REMAIN SUSCEPTIBLE TO CARBAPENEMS. CONSIDER ID CONSULTATION. Radiology: CT HEAD WO CONTRAST Result Date: 08/28/2020 No acute intracranial abnormality. CT ABDOMEN PELVIS W IV CONTRAST Additional Contrast? None Result Date: 08/27/2020 CTA OF THE CHEST: 1. No pulmonary embolism. 2. Dilation of the main pulmonary artery may signify pulmonary arterial hypertension. 3. No evidence of pneumonia. CT OF THE ABDOMEN AND PELVIS: 1. Edema surrounding the gallbladder, likely indicating acute cholecystitis. While no cholelithiasis is evident by CT, multiple calculi are seen in the common bile duct (choledocholithiasis). 2. Status post colectomy with right lower quadrant ileostomy. 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 No bowel wall thickening or obstruction. 3. Status post left inguinal hernia repair, with evidence of a recurrent shallow fat-containing hernia. No evidence of fat strangulation. US GALLBLADDER RUQ Result Date: 08/29/2020 Markedly limited examination due to patient body habitus and overlying bowel gas. Evaluation for cholelithiasis or acute cholecystitis is limited on this study. As a was inflammatory changes seen about the gallbladder the recent CT, if there is clinical concern for acute cholecystitis, HIDA scan may be considered for further evaluation. Patient's known choledocholithiasis is not well appreciated sonographically. The common bile duct appears normal in caliber measuring 5 mm. Increased echogenicity of the liver parenchyma, which may reflect underlying hepatic steatosis or other chronic liver parenchymal disease. XR CHEST PORTABLE Result Date: 08/30/2020 Improved aeration of lung compared to prior study interval removal of endotracheal tube. Right-sided central venous catheter remains unchanged. Persistent chronic interstitial markings bilaterally with no evidence for effusions. XR CHEST PORTABLE Result Date: 08/29/2020 Supportive tubing projects in normal position. Vascular congestion. Mild bibasilar atelectasis or airspace disease, with improved aeration on the left in the interval. XR CHEST PORTABLE Result Date: 08/28/2020 Possible mild pulmonary vascular congestion CT CHEST PULMONARY EMBOLISM W CONTRAST Result Date: 08/27/2020 CTA OF THE CHEST: 1. No pulmonary embolism. 2. Dilation of the main pulmonary artery may signify pulmonary arterial hypertension. 3. No evidence of pneumonia. CT OF THE ABDOMEN AND PELVIS: 1. Edema surrounding the gallbladder, likely indicating acute cholecystitis. While no cholelithiasis is evident by CT, multiple calculi are seen in the common bile duct (choledocholithiasis). 2. Status post colectomy with right lower quadrant ileostomy. 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 No bowel wall thickening or obstruction. 3. Status post left inguinal hernia repair, with evidence of a recurrent shallow fat-containing hernia. No evidence of fat strangulation. XR ABDOMEN FOR NG/OG/NE TUBE PLACEMENT Result Date: 08/29/2020 Nasogastric tube projects in normal position. Physical Examination: Physical Exam Vitals and nursing note reviewed. Constitutional: General: He is not in acute distress. Appearance: He is morbidly obese. He is ill-appearing. HENT: Head: Normocephalic and atraumatic. Eyes: Conjunctiva/sclera: Conjunctivae normal. Pupils: Pupils are equal, round, and reactive to light. Cardiovascular: Rate and Rhythm: Normal rate and regular rhythm. Heart sounds: No murmur heard. Pulmonary: Effort: Tachypnea and respiratory distress present. No accessory muscle usage. Breath sounds: No stridor. Decreased breath sounds and rales present. No wheezing or rhonchi. Abdominal: General: Bowel sounds are normal. There is no distension. Palpations: Abdomen is soft. Abdomen is not rigid. Tenderness: There is no abdominal tenderness. There is no guarding. Musculoskeletal: General: No tenderness. Skin: General: Skin is warm and dry. Findings: No erythema, lesion or rash. Neurological: Mental Status: He is alert and oriented to person, place, and time. Cranial Nerves: No cranial nerve deficit. Motor: No seizure activity. Psychiatric: Speech: Speech normal. Behavior: Behavior normal. Behavior is cooperative. Assessment: Hospital Problems Last Modified POA * (Principal) Gram negative septicemia ([facility]) 08/30/2020 Yes Elevated liver enzymes 08/27/2020 Yes Diabetes mellitus ([facility]) 08/27/[address] ([facility]) 08/27/2020 Yes Paroxysmal A-fib ([facility]) 08/27/2020 Yes Transaminasemia 08/27/2020 Yes Panniculitis 08/27/2020 Yes Supratherapeutic INR 08/27/2020 Yes Hypomagnesemia 08/27/2020 Yes Class 3 severe obesity due to excess calories with serious comorbidity and body mass index (BMI) of 50.0 to 59.9 in adult ([facility]) 08/29/2020 Yes HTN (hypertension) 08/27/2020 Yes Coagulopathy ([facility]) 08/27/2020 Yes Chronic anticoagulation: Coumadin 08/27/2020 Yes Sepsis ([facility]) 08/27/2020 Yes History of DVT (deep vein thrombosis) 08/27/2020 Yes Acute encephalopathy 08/28/2020 Yes Acute cholangitis 08/30/2020 Yes Complicated UTI (urinary tract infection) 08/28/2020 Yes Ascending cholangitis 08/29/2020 Yes Morbid obesity ([facility]) 08/30/2020 Yes Plan: Stat chest x-ray. Place patient on BiPAP. Give 1 dose of Lasix 40 IV Stop fluids Continue supplemental oxygen Continue antibiotic. Continue to hold warfarin. Per GI warfarin to be held for 7 days Continue blood pressure and glycemic control Continue other chronic meds for his chronic conditions.. Appreciate GI and ID recommendations Check electrolytes and replace as needed. DVT and GI prophylaxis Discussed with the patient Harvey Dotson MD 08/31/2020 7:57 AM Critical care team - Resident sign-out to medicine service Date and time: 08/30/2020 11:46 PM Patient's name: Kamran Harley Patient's account/billing number: [id number] Patient's Date of : 1950 Age: 70 y.o. Date of Admission: 08/27/2020 12:46 PM Length of stay during current admission: 3 Primary Care Physician: Jesus Chopra DO Code Status: Full Code Mode of physician to physician communication: [x] Via telephone [] In person Date and time of sign-out: 08/30/2020 11:46 PM Accepting Internal Medicine resident: Jeannine Barakat Accepting Medicine team: Intermed Accepting team's attending: Dr. Espino Patient's current ICU Bed: 117 Patient's assigned bed on floor: 419 [] Med-Surg Monitored [x] Step-down [] Psychiatry ICU [] Psych floor Reason for ICU admission: Septic shock ICU course summary: Patient originally arrived to the hospital on 618 with chief complaints of fatigue, not feeling well, UTI symptoms and shortness of breath. Transferred to ICU on hospital day 1 as he became hypotensive. Found to have acute ascending cholangitis, choledocholithiasis complicated by E. coli bacteremia. Infectious disease was consulted originally was placed on vancomycin and Zosyn and then transitioned on 619 to meropenem with daily amikacin. GI and general surgery were consulted. Patient underwent an ERCP with stent placement and sphincterotomy on the . General surgery agrees with ERCP with stent placement, sphincterotomy no further percutaneous drainage recommended. Patient's vital signs improved, currently off all pressor support, tolerating 2 L nasal cannula, afebrile, leukocytosis improving. Patient is stable to be transferred to floor unit. Procedures during patient's ICU stay: ERCP with stent placement Central line placement Current Vitals: BP (!) 131/46 Pulse 79 Temp 98.2 F (36.8 C) (Oral) Resp 25 Ht 6' 3 (1.905 m) Wt (!) 402 lb 14.4 oz (182.8 kg) SpO2 96% BMI 50.36 kg/m Cultures: Blood cultures: [] None drawn [] Negative [x] Positive (Details: E. coli) Urine Culture: [] None drawn [] Negative [x] Positive (Details: Klebsiella pneumonia) Sputum Culture: [] None drawn [] Negative [] Positive (Details: ) Endotracheal aspirate: [] None drawn [] Negative [] Positive (Details: ) Consults: GI Infectious disease General surgery Assessment: Patient Active Problem List Diagnosis Date Noted Morbid obesity (HCC) Ascending cholangitis Acute encephalopathy Acute cholangitis Complicated UTI (urinary tract infection) Gram negative septicemia (HCC) Elevated liver enzymes 08/27/2020 Transaminasemia 08/27/2020 Panniculitis 08/27/2020 Supratherapeutic INR 08/27/2020 Hypomagnesemia 08/27/2020 Sepsis ([facility]) 08/27/2020 History of DVT (deep vein thrombosis) 08/27/2020 Class 3 severe obesity due to excess calories with serious comorbidity and body mass index (BMI) of 50.0 to 59.9 in adult (HCC) HTN (hypertension) Coagulopathy (HCC) Chronic anticoagulation: Coumadin Ileostomy in place ([facility]) 09/17/2019 Diabetes mellitus ([facility]) 09/05/2019 Paroxysmal A-fib ([facility]) 08/22/2019 Recommended Follow-up: 1. Cont. Supportive care, antibiotics Above mentioned assessment and plan was discussed by me with the admitting medicine resident. The medicine team assigned to the patient by medicine admitting resident will be following up the patient from now onwards on the floor. Andrew Bolton [facility], [facility] 08/30/2020, 11:46 PM Images from the original note were not included. 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, right ileostomy Inguinal hernia repair with herniated fat no strangulation Allergy to penicillin 7 years old had a shot, most likely reactive to the shots but not to the penicillin product-tolerated Zosyn 08/27 Discussion / summary of stay / plan of care Presents with septic shock and acute encephalopathy, progressing during his admission, gram-negative septicemia seems to be related to a complicated UTI but also to an obstructive cholangitis Patient has progressed into severe sepsis during his admission and hence he is at risk to develop multiorgan failure He did have a history of UTIs, multiple antibiotic intake in the past and hence he is at risk for MDRO gram-negative Recommendations Stop the vancomycin Stop Zosyn 08/28 08/28 meropenem better address the cholangitis/ bacteremia / ESBL UTI Post 08/28 Amikacin 1 g once Since the gram-negative of the blood is related to the cholangitis, get another blood culture to confirm that the test clear, due to the obstructive nature of the cholangitis Infection Control Recommendations [place] Precautions Antimicrobial Stewardship Recommendations Simplification of therapy Targeted therapy Per Kg dosing Coordination ofOutpatient Care: Estimated Length of IV antimicrobials: Patient will need Midline / picc Catheter Insertion: Patient will need SNF: Patient will need outpatient wound care: History of Present Illness: Initial history: Kamran Harley is a 70 y.o.-year-old male obese phone straight cath, states that 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 He feels he has had some dysuria and is concerned he might be having a UTI. Came to the ER he was having fever, blood cultures taken and he was sent to the floor Today he is getting short of breath lethargic, tachycardic, hypotensive. He was started on vancomycin and Zosyn, since blood cultures are showing gram-negative rods Urine culture remains pending gram-negative rods CT of the abdomen showed normal kidneys, gallbladder showed multiple stones with some obstruction, suspect there is for ascending cholangitis, there is edema around the gallbladder as well GI contemplating ERCP once more stable Patient being transferred to the ICU 08/28: Discussed with GI, they will defer ERCP till he stabilizes, agree with cholecystostomy in the meantime to decompress Patient sleepy arousable very appropriate, discussed with him his allergy to penicillin as stated in the impression section. He tolerated Zosyn so far without any hives He does have a tenderness over the right upper quadrant Multiple over both knees Lees with hemal urine but no cloudiness Interval changes Patient Vitals for the past 8 hrs: BP Temp Temp src Pulse Resp SpO2 08/30/20 2300 (!) 131/46 79 25 96 % 08/30/20 2200 (!) 139/59 82 29 98 % 08/30/20 2100 (!) 135/52 89 25 99 % 08/30/20 2000 (!) 129/50 98.2 F (36.8 C) Oral 81 22 100 % 08/30/20 1900 (!) 131/48 81 29 99 % 08/30/20 1830 82 28 99 % 08/30/20 1800 (!) 144/51 97.9 F (36.6 C) Oral 83 23 99 % 08/30/20 1730 85 23 98 % 08/30/20 1700 (!) 136/51 83 26 99 % 08/30/20 1630 85 25 99 % post ERCP 08/28 Stones extracted and Biliary sphincterotomy done BC still pend GNR but U cx ESBL Kleb Cholecystostomy could not be done 05/28 WBC 18 up likely a reaction to the ERCP Creat a little up 1.28 08/30/20-patient is looking better, abdomen less distended, his right abdominal pain is improved He has no fever, blood cultures are showing E. coli sensitive to ceftriaxone and ESBL negative, most likely originating from the common bile duct Repeat blood cultures pending White count improved to 11 Summary of relevant labs: Labs: WBC 15 16 - 18 - 11 Creatinine 0.75 - 128 AST 49 - 56 AST 50 - 42 Bilirubin 5.98 Micro: Blood culture 08/27 gram-negative rods next 2 urine culture 08/27 kLEB esbl MRSA nasal + swab Imaging: CXR Mild bibasilar atelectasis or airspace disease, with improved aeration on the left in the interval. US GB 08/28 Markedly limited examination due to patient body habitus and overlying bowel gas. Evaluation for cholelithiasis or acute cholecystitis is limited on this study. As a was inflammatory changes seen about the gallbladder the recent CT, if there is clinical concern for acute cholecystitis, HIDA scan may be considered for further evaluation. Patient's known choledocholithiasis is not well appreciated sonographically. The common bile duct appears normal in caliber measuring 5 mm. Increased echogenicity of the liver parenchyma, which may reflect underlying hepatic steatosis or other chronic liver parenchymal disease ERCP 08/28 - PROCEDURES PERFORMED: 1. Transoral Endoscopic retrograde cholangiopancreatography (ERCP). 2. Cholangiogram 3. Biliary sphincterotomy 4. Balloon sweeps with extraction of stone and pus 5. Placement of 10 F x 7 cm plastic biliary stent 6. Fluoroscopy POSTPROCEDURE DIAGNOSIS: CBD stones and sludge Retained gastric contents CT of the head no acute abnormality 08/28 CT chest 08/27 no pulmonary emboli, dilatation of the main pulmonary artery that might reflect pulmonary arterial hypertension, no pneumonia H with edema surrounding the gallbladder suggesting acute cholecystitis with no cholelithiasis on CT but multiple stones are seen in the common bile duct Right lower quadrant ileostomy with post colectomy Redundant loop of ileum in the parastomal hernia No bowel thickening Post left inguinal hernia repair, with fat-containing persistent hernia but no strangulation Kidneys unremarkable I have personally reviewed the past medical history, past surgical history, medications, social history, and family history, and I haveupdated the database accordingly. Allergies: Oxytetracycline, Penicillins, and Sulfa antibiotics Review of Systems: Review of Systems Constitutional: Positive for fatigue. Negative for activity change, appetite change and fever. HENT: Negative for congestion. Eyes: Negative for itching. Respiratory: Negative for apnea, cough and shortness of breath. Cardiovascular: Negative for chest pain. Gastrointestinal: Negative for abdominal distention and abdominal pain. Endocrine: Negative for heat intolerance. Genitourinary: Positive for dysuria. Negative for hematuria. Musculoskeletal: Negative for arthralgias. Skin: Negative for color change. Allergic/Immunologic: Negative for immunocompromised state. Neurological: Positive for weakness. Negative for dizziness. Hematological: Does not bruise/bleed easily. Psychiatric/Behavioral: Negative for agitation and decreased concentration. Physical Examination : Physical Exam Constitutional: General: He is not in acute distress. Appearance: He is obese. He is ill-appearing. Comments: arousable HENT: Head: Normocephalic and atraumatic. Nose: Nose normal. Mouth/Throat: Mouth: Mucous membranes are moist. Eyes: General: No scleral icterus. Conjunctiva/sclera: Conjunctivae normal. Cardiovascular: Rate and Rhythm: Normal rate and regular rhythm. Heart sounds: Normal heart sounds. Pulmonary: Effort: No respiratory distress. Breath sounds: Normal breath sounds. Abdominal: General: There is no distension. Palpations: Abdomen is soft. Tenderness: There is no abdominal tenderness. Comments: Right ileostomy with herniated loops Genitourinary: Comments: Urine hemal Musculoskeletal: General: No tenderness or signs of injury. Cervical back: Neck supple. No tenderness. Skin: General: Skin is warm. Coloration: Skin is not pale. Findings: No erythema. Neurological: General: No focal deficit present. Mental Status: He is oriented to person, place, and time. Cranial Nerves: No cranial nerve deficit. Psychiatric: Mood and Affect: Mood normal. Behavior: Behavior normal. Thought Content: Thought content normal. Past Medical History: Past Medical History: Diagnosis Date Chronic anticoagulation: Coumadin Coagulopathy (HCC) HLD (hyperlipidemia) HTN (hypertension) Hypomagnesemia 08/27/[address] (HCC) Morbid obesity (HCC) Marni syndrome Paroxysmal atrial fibrillation (HCC) Type 2 diabetes mellitus (HCC) Past Surgical History: Past Surgical History: Procedure Laterality Date COLON SURGERY Subtotal colectomy ERCP N/A 08/28/2020 ERCP DILATION BALLOON performed by Alexis Ramon MD at [facility] OR ERCP 08/28/2020 ERCP STENT INSERTION performed by Alexis Ramon MD at [facility] OR ERCP 08/28/2020 ERCP SPHINCTER/PAPILLOTOMY performed by Alexis Ramon MD at [facility] OR GASTROSTOMY TUBE PLACEMENT HERNIA REPAIR ILEOSTOMY OR JEJUNOSTOMY Medications: enoxaparin 40 mg Subcutaneous BID miconazole Topical BID meropenem 1,000 mg Intravenous Q8H insulin lispro 0-12 Units Subcutaneous 4x Daily AC & HS sodium chloride flush 5-40 mL Intravenous 2 times per day Social History: Social History Socioeconomic History Marital status: Unknown Spouse name: Not on file Number of children: Not on file Years of education: Not on file Highest education level: Not on file Occupational History Not on file Tobacco Use Smoking status: Never Smoker Smokeless tobacco: Never Used Substance and Sexual Activity Alcohol use: Not on file Drug use: Not on file Sexual activity: Not on file Other Topics Concern Not on file Social History Narrative Not on file Social Determinants of Health Financial Resource Strain: Difficulty of Paying Living Expenses: Food Insecurity: Worried About Running Out of Food in the Last Year: Ran Out of Food in the Last Year: Transportation Needs: Lack of Transportation (Medical): Lack of Transportation (Non-Medical): Physical Activity: Days of Exercise per Week: Minutes of Exercise per Session: Stress: Feeling of Stress : Social Connections: Frequency of Communication with Friends and Family: Frequency of Social Gatherings with Friends and Family: Attends [employer] Services: Active Member of Clubs or Organizations: Attends Club or Organization Meetings: Marital Status: Intimate Partner Violence: Fear of Current or Ex-Partner: Emotionally Abused: Physically Abused: Sexually Abused: Family History: Family History Problem Relation Age of Onset Diabetes Mother Other Father Medical Decision Making: I have independently reviewed/ordered the following labs: CBC with Differential: Recent Labs 08/29/20 0542 08/30/20 0559 WBC 18.1* 11.2 HGB 11.6* 11.2* HCT 37.7* 36.6* PLT 123* 139 BMP: Recent Labs 08/28/20 1355 08/29/20 0542 08/30/20 0445 NA 136 136 -- K 3.6* 4.2 -- CL 98 104 -- CO2 28 19* -- BUN 25* 30* -- CREATININE 1.11 1.28* -- MG -- 1.9 1.9 Hepatic Function Panel: Recent Labs 08/29/20 0542 08/30/20 0846 PROT 5.2* 5.1* LABALBU 2.2* 2.2* BILIDIR 7.93* 2.93* IBILI 0.94 0.42 BILITOT 8.87* 3.35* ALKPHOS 263* 234* ALT 42* 32 AST 56* 32 No results for input(s): RPR in the last 72 hours. No results for input(s): HIV in the last 72 hours. No results for input(s): BC in the last 72 hours. Lab Results Component Value Date CREATININE 1.28 08/29/2020 GLUCOSE 220 08/29/2020 Detailed results: Thank you for allowing us to participate in the care of this patient.Please call with questions. This note is created with the assistance of a speech recognition program. While intending to generate adocument that actually reflects the content of the visit, the document can still have some errors including those of syntax and sound a like substitutions which may escape proof reading. It such instances, actual meaningcan be extrapolated by contextual diversion. Samy Russell MD Office: Perfect serve / office [phone] [facility] Progress Note Kamran Harley is a 70 y.o. male patient. Hospitalization Day:3 Chief consult reason: Elevated liver enzymes Subjective: Patient seen and examined. Pt is awake, denies any severe pain, nausea, vomiting. Minimal RUQ pain. Pt is requesting clears. VSS-no fever. Pt has been continued on Meropenum per ID. Bili dropped significantly from 8-5.WBC's decreasing to 11.2. Pt was dyspneic with conversation and stated he felt alittle short of breath Chest x ray is pending, fluids running at 250 an hour VITALS: BP (!) 121/48 Pulse 69 Temp 97.9 F (36.6 C) (Oral) Resp 26 Ht 6' 3 (1.905 m) Wt (!) 402 lb 14.4 oz (182.8 kg) SpO2 100% BMI 50.36 kg/m TEMPERATURE: Current - Temp: 97.9 F (36.6 C); Max - Temp Av.6 F (36.4 C) Min: 97.1 F (36.2 C) Max: 97.9 F (36.6 C) Physical Assessment: General appearance: Awake Mental Status: Alert and oriented x4 Lungs: Managed in bases Heart: regular rate and rhythm, no murmur Abdomen: soft, nontender, nondistended, normal bowel sounds, no masses, hepatomegaly, splenomegaly Extremities: no edema, redness, tenderness in the calves Skin: no gross lesions, rashes, induration Data Review: Labs and Imaging: CBC: Recent Labs 08/27/20 1420 08/28/20 0731 08/28/20 1355 08/29/20 0542 08/30/20 0559 WBC 15.1* 10.2 16.8* 18.1* 11.2 HGB 15.2 12.9* 14.1 11.6* 11.2* MCV 87.2 88.8 90.6 89.5 90.4 RDW 15.2* 15.6* 15.7* 16.0* 16.5* PLT 139 127* 110* 123* 139 ANEMIA STUDIES: No results for input(s): LABIRON, TIBC, FERRITIN, [id number], FOLATE, OCCULTBLD in the last 72 hours. BMP: Recent Labs 08/28/20 0731 08/28/20 1355 08/29/20 0542 NA 135 136 136 K 4.3 3.6* 4.2 CL 98 98 104 CO2 30 28 19* BUN 22 25* 30* CREATININE 0.75 1.11 1.28* GLUCOSE 211* 183* 220* CALCIUM 8.7 8.7 7.6* LFTS: Recent Labs 08/27/20 1420 08/28/20 0731 08/29/20 0542 08/30/20 0846 ALKPHOS 470* 307* 263* 234* ALT 67* 49* 42* 32 AST 75* 50* 56* 32 BILITOT 5.92* 5.98* 8.87* 3.35* BILIDIR -- -- 7.93* 2.93* LABALBU 3.0* 2.5* 2.2* 2.2* Amylase/Lipase and Ammonia: No results for input(s): AMYLASE, LIPASE, AMMONIA in the last 72 hours. Acute Hepatitis Panel: No results found for: HEPBSAG, HEPCAB, HEPBIGM, HEPAIGM HCV Genotype: No results found for: HEPATITISCGENOTYPE HCV Quantitative: No results found for: HCVQNT LIVER WORK UP: AFP No results found for: AFP Alpha 1 antitrypsin No results found for: A1A NIKKO No results found for: NIKKO AMA No results found for: MITOAB ASMA No results found for: SMOOTHMUSCAB PT/INR Recent Labs 08/28/20 1506 08/28/20 1803 08/29/20 0542 PROTIME 19.8* 17.9* 11.1 INR 2.0 1.8 1.0 Cancer Markers: CEA: No results for input(s): CEA in the last 72 hours. Ca 125: No results for input(s): CA125 in the last 72 hours. Ca 19-9: Invalid input(s): CA19-9 AFP: No results for input(s): AFP in the last 72 hours. Lactic acid:Invalid input(s): LACTIC ACID Radiology Review: No results found. Principal Problem: Gram negative septicemia (HCC) Active Problems: Elevated liver enzymes Diabetes mellitus (HCC) Ileostomy in place (HCC) Paroxysmal A-fib (HCC) Transaminasemia Panniculitis Supratherapeutic INR Hypomagnesemia Class 3 severe obesity due to excess calories with serious comorbidity and body mass index (BMI) of 50.0 to 59.9 in adult (HCC) HTN (hypertension) Coagulopathy (HCC) Chronic anticoagulation: Coumadin Sepsis (HCC) History of DVT (deep vein thrombosis) Acute encephalopathy Acute cholangitis Complicated UTI (urinary tract infection) Ascending cholangitis Resolved Problems: * No resolved hospital problems. * GI Impression: 1. Ascending cholangitis-ID on board-on meropenem 2. Choledochal lithiasis-s/P ERCP with stent placement and sphincterotomy, removal of stones and pus 3. Gram-negative septicemia 4. Iatrogenic coagulopathy-resolved. INR 1.0 5. 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 Continue with current medical management including antibiotic per ID 2. Recommend holding Coumadin x7 days with restart date of 09/04 given patient had sphincterotomy 3. Daily labs including CBC, BMP, LFT, INR 4. Clear diet with Ensure supplements 5. Will follow closely This plan was formulated in collaboration with Dr. Erica MD Thank you for allowing me to participate in the care of your patient. Please feel free to contact me with any questions or concerns. Alvaro Purcell APRN - PET CAREGIVER [facility] This note was created with the assistance of a speech-recognition program. Although the intention is to generate a document that actually reflects the content of the visit, no guarantees can be provided that every mistake has been identified and corrected by editing. Associated attestation - Inessa Maldonado MD - 08/30/2020 7:45 PM EDT Attending Physican Attestation Patient seen and examined with Ms. Alvaro Purcell CNP. I have reviewed the above note and confirmed the [place] elements of the medical history and physical exam. I have discussed the findings, established the care plan and recommendations with Ms. Purcell and primary team. Inessa Maldonado MD MD Gastroenterology Images from the original note were not included. [facility] Department of Internal Medicine & Critical Care - Staff Internal Medicine Teaching Service Critical Care - Daily Progress Note Date and time: 08/30/2020 8:52 AM Patient's name: Kamran Harley Patient's account/billing number: [id number] Patient's Date of : 1950 Age: 70 y.o. Date of Admission: 08/27/2020 12:46 PM Length of stay during current admission: 3 Primary Care Physician: Jesus Chopra DO ICU Attending Physician: Magdaleno Wilson DO Code Status: Full Code Reason for ICU admission: No chief complaint on file. Subjective: Pt was seen and examined at bedside. Resting comfortably in the bed. Vitals stable. Labs reviewed. White count trended down to 11.2 from 18.1 No acute events overnight. OVERNIGHT EVENTS: No acute events overnight. BRIEF SUMMARY: Kamran Harley is a 70 y.o. male who presents with a chief complaint of fatigue, not feeling well, urinary tract infection and shortness of breath since about 5 days. He first presented to [facility] for these complaints. He has a lengthy surgical history of subtotal colectomy with end ileostomy in 2014 and revision of ostomy and repair of peristomal hernia in 2019. Patient reports that he has not been able to spontaneously void due to urinary retention since he has had the surgery. He manages this with straight caths and chronic foleys. Per chart review patient reportedly has history of multiple DVTs and has been on chronic warfarin. INR on presentation was >17 He was originally admitted under Intermed service but went into septic shock and was transferred to the ICU for further management. CT scan suggestive of choledocholithiasis and ascending cholangitis. ERCP was done 08/28/20. Patient continued on Meropenem and Amikacin. Remained intubated post operatively and was extubated 08/29/20. No longer required pressors. CURRENT VENTILATION STATUS: [] Ventilator [] BIPAP [x] Nasal Cannula [] Room Air SEDATION: No PARALYZED: No VASOPRESSORS: Levophed @ 8 URINE OUTPUT: [] Good [x] Low [] Anuric REVIEW OF SYSTEMS Review of Systems Constitutional: Negative for activity change, appetite change, chills, diaphoresis, fever and unexpected weight change. HENT: Negative for ear discharge, ear pain, rhinorrhea and tinnitus. Eyes: Negative for photophobia and discharge. Respiratory: Negative for cough, chest tightness and shortness of breath. Cardiovascular: Negative for chest pain. Gastrointestinal: Negative for abdominal pain, diarrhea, nausea and vomiting. Genitourinary: Negative for dysuria and frequency. Musculoskeletal: Negative for back pain and neck pain. Skin: Negative for rash and wound. Neurological: Negative for seizures, weakness and headaches. Psychiatric/Behavioral: Negative for agitation and confusion. OBJECTIVE: VITAL SIGNS: BP (!) 118/53 Pulse 71 Temp 97.6 F (36.4 C) (Axillary) Resp 24 Ht 6' 3 (1.905 m) Wt (!) 402 lb 14.4 oz (182.8 kg) SpO2 97% BMI 50.36 kg/m Tmax over 24 hours: Temp (24hrs), Av.6 F (36.4 C), Min:97.1 F (36.2 C), Max:97.9 F (36.6 C) Patient Vitals for the past 8 hrs: BP Temp Temp src Pulse Resp SpO2 Weight 08/30/20 0726 71 08/30/20 0657 68 08/30/20 0600 (!) 118/53 97.6 F (36.4 C) Axillary 65 24 97 % 08/30/20 0554 (!) 402 lb 14.4 oz (182.8 kg) 08/30/20 0500 (!) 101/43 71 27 97 % 08/30/20 0400 (!) 130/55 97.6 F (36.4 C) Axillary 77 (!) 31 97 % 08/30/20 0300 (!) 119/42 87 (!) 34 97 % 08/30/20 0200 (!) 135/52 97.9 F (36.6 C) Axillary 76 28 97 % 08/30/20 0100 (!) 139/55 85 28 97 % Intake/Output Summary (Last 24 hours) at 08/30/2020 0852 Last data filed at 08/30/2020 0600 Gross per 24 hour Intake 5351.49 ml Output 2250 ml Net 3101.49 ml Wt Readings from Last 3 Encounters: 08/30/20 (!) 402 lb 14.4 oz (182.8 kg) Body mass index is 50.36 kg/m . PHYSICAL EXAM: Constitutional: Alert, cooperative and no distress. Mental Status: Oriented to person, place and time and normal affect. Lungs: Clear to auscultation bilaterally, normal effort. Heart: Regular rate and rhythm, no murmur. Abdomen: Soft, nontender, distended, normal bowel sounds. Extremities: No edema, redness, tenderness in the calves. Skin: Warm, dry, no gross lesions or rashes. VENT SETTINGS (Comprehensive) (if applicable): Vent Information $Ventilation: Off Vent Skin Assessment: Clean, dry, & intact Equipment ID: [id number] Equipment Changed: HME Vent Type: Servo i Vent Mode: CPAP Vt Ordered: 580 mL Rate Set: 20 bmp Pressure Support: 6 cmH20 FiO2 : 30 % SpO2: 97 % SpO2/FiO2 ratio: 293.33 Sensitivity: 3 PEEP/CPAP: 5 I Time/ I Time %: 0.8 s Humidification Source: HME Additional Respiratory Assessments Pulse: 71 Resp: 24 SpO2: 97 % End Tidal CO2: 38 Position: Semi-Matt's Humidification Source: HME Oral Care Completed?: Yes Oral Care: Mouth swabbed, Mouth moisturizer Subglottic Suction Done?: Yes Cuff Pressure (cm H2O): (mov) ABGs: Lab Results Component Value Date [id number] NOT REPORTED 08/29/2020 FIO2 40.0 08/29/2020 Lactic Acid: No results found for: LACTA DATA: Complete Blood Count: Recent Labs 08/28/20 1355 08/29/20 0542 08/30/20 0559 WBC 16.8* 18.1* 11.2 HGB 14.1 11.6* 11.2* MCV 90.6 89.5 90.4 PLT 110* 123* 139 RBC 5.12 4.21 4.05* HCT 46.4 37.7* 36.6* MCH 27.5 27.6 27.7 MCHC 30.4 30.8 30.6 RDW 15.7* 16.0* 16.5* MPV 11.2 11.8 11.1 PT/INR: Lab Results Component Value Date PROTIME 11.1 08/29/2020 INR 1.0 08/29/2020 PTT: No results found for: APTT, PTT Basal Metabolic Profile: Recent Labs 08/28/20 0731 08/28/20 1355 08/29/20 0542 NA 135 136 136 K 4.3 3.6* 4.2 BUN 22 25* 30* CREATININE 0.75 1.11 1.28* CL 98 98 104 CO2 30 28 19* LFTS Recent Labs 08/27/20 1420 08/28/20 0731 08/29/20 0542 ALKPHOS 470* 307* 263* ALT 67* 49* 42* AST 75* 50* 56* BILITOT 5.92* 5.98* 8.87* BILIDIR -- -- 7.93* LABALBU 3.0* 2.5* 2.2* MEDICATIONS: Scheduled Meds: enoxaparin 40 mg Subcutaneous BID miconazole Topical BID meropenem 1,000 mg Intravenous Q8H insulin lispro 0-12 Units Subcutaneous 4x Daily AC & HS sodium chloride flush 5-40 mL Intravenous 2 times per day Continuous Infusions: norepinephrine Stopped (08/29/20 1420) sodium chloride propofol Stopped (08/29/20 1015) sodium chloride 250 mL/hr at 08/30/20 0356 dextrose PRN Meds: guaiFENesin, 200 mg, Q4H PRN diphenhydrAMINE, 25 mg, Q6H PRN LORazepam, 0.5 mg, Q6H PRN sodium chloride, , PRN acetaminophen, 650 mg, Q6H PRN Or acetaminophen, 650 mg, Q6H PRN magnesium sulfate, 1,000 mg, PRN ondansetron, 4 mg, Q8H PRN Or ondansetron, 4 mg, Q6H PRN polyethylene glycol, 17 g, Daily PRN potassium chloride, 40 mEq, PRN Or potassium alternative oral replacement, 40 mEq, PRN Or potassium chloride, 10 mEq, PRN sodium chloride flush, 10 mL, PRN glucose, 15 g, PRN dextrose, 12.5 g, PRN glucagon (rDNA), 1 mg, PRN dextrose, 100 mL/hr, PRN sodium chloride flush, 5-40 mL, PRN ASSESSMENT: Active Problems: Elevated liver enzymes Diabetes mellitus (HCC) Ileostomy in place (HCC) Paroxysmal A-fib (HCC) Transaminasemia Panniculitis Supratherapeutic INR Hypomagnesemia Class 3 severe obesity due to excess calories with serious comorbidity and body mass index (BMI) of 50.0 to 59.9 in adult ([facility]) HTN (hypertension) Coagulopathy ([facility]) Chronic anticoagulation: Coumadin Sepsis ([facility]) History of DVT (deep vein thrombosis) Acute encephalopathy Acute cholangitis Complicated UTI (urinary tract infection) Gram negative septicemia ([facility]) Ascending cholangitis Resolved Problems: * No resolved hospital problems. * PLAN: Metabolic Encephalopathy secondary to E Coli Septicemia - Resolved Septic shock secondary to E Coli septicemia - Focus either urinary or from ascending cholangitis. - Sepsis protocol IVF resuscitation. - Continue meropenem due to history of multiple UTIs and concern for ESBL. And additional doses of amikacin for synergy. - Appreciate further infectious disease recommendations. Oliguric CHACE likely secondary to ischemic ATN - Urine sodium, creatinine sent - Will monitor. Chronic Urinary Retention - Straight caths self at home for about five years now. - Lees in place now. Placed 6 days ago. Appreciate Urology recommendations. Cholecystitis with Choledocholithiasis - Possibly causing Ascending cholangitis due to obstruction. - ERCP and biliary stent placement done 08/28/20. Will need repeat ERCP in 1 month to remove the stent. Supratherapeutic INR - Resolved - Was on chronic Coumadin for multiple DVTs. DVT ppx: Lovenox 40mg GI ppx: Pepcid Diet: NPO Isolation: Not indicated Humphrey Dejesus MD PGY-2, Internal Medicine Resident [facility] [place] 08/30/2020, 8:52 AM Associated attestation - Lonnie Juárez MD - 08/31/2020 6:54 AM EDT Critical Care Attending Physician Addendum: I have personally seen and examined Kamran Harley with the resident and the [place] elements of all parts of the encounter were performed by me. Patient was reassessed on more than one occasion, when required. I reviewed the interval history, interpreted all available radiographic, laboratory and physiologic data at the time of service. I agree with the assessment and plan as documented by resident. Critical care time (excluding procedures) of greater than 30 minutes was spent in coordination of care during bedside rounds and discussion of patient care in detail. Patient admitted with E. coli bacteremia secondary to acute cholangitis, s/p ERCP with stent placement. Continue meropenem. He is hemodynamically stable. Okay to transfer out of ICU. Critical care will sign off at the time of transfer. Lonnie Juárez MD Pulmonary and Critical Care Medicine Images from the original note were not included. 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, right ileostomy Inguinal hernia repair with herniated fat no strangulation Allergy to penicillin 7 years old had a shot, most likely reactive to the shots but not to the penicillin product-tolerated Zosyn 08/27 Discussion / summary of stay / plan of care Presents with septic shock and acute encephalopathy, progressing during his admission, gram-negative septicemia seems to be related to a complicated UTI but also to an obstructive cholangitis Patient has progressed into severe sepsis during his admission and hence he is at risk to develop multiorgan failure He did have a history of UTIs, multiple antibiotic intake in the past and hence he is at risk for MDRO gram-negative Recommendations Stop the vancomycin Stop Zosyn and start 08/28 meropenem better address the cholangitis as well as the bacteremia 08/28 Amikacin 1 g once Defer further dosing since he stable Await blood culture gram-negative ID Will follow Infection Control Recommendations [place] Precautions Antimicrobial Stewardship Recommendations Simplification of therapy Targeted therapy Per Kg dosing Coordination ofOutpatient Care: Estimated Length of IV antimicrobials: Patient will need Midline / picc Catheter Insertion: Patient will need SNF: Patient will need outpatient wound care: History of Present Illness: Initial history: Kamran Harley is a 70 y.o.-year-old male obese phone straight cath, states that 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 He feels he has had some dysuria and is concerned he might be having a UTI. Came to the ER he was having fever, blood cultures taken and he was sent to the floor Today he is getting short of breath lethargic, tachycardic, hypotensive. He was started on vancomycin and Zosyn, since blood cultures are showing gram-negative rods Urine culture remains pending gram-negative rods CT of the abdomen showed normal kidneys, gallbladder showed multiple stones with some obstruction, suspect there is for ascending cholangitis, there is edema around the gallbladder as well GI contemplating ERCP once more stable Patient being transferred to the ICU 08/28: Discussed with GI, they will defer ERCP till he stabilizes, agree with cholecystostomy in the meantime to decompress Patient sleepy arousable very appropriate, discussed with him his allergy to penicillin as stated in the impression section. He tolerated Zosyn so far without any hives He does have a tenderness over the right upper quadrant Multiple over both knees Lees with hemal urine but no cloudiness Interval changes 08/29/2020 Patient Vitals for the past 8 hrs: BP Temp Temp src Pulse Resp SpO2 08/29/20 1700 (!) 128/58 81 23 95 % 08/29/20 1630 (!) 130/56 84 27 95 % 08/29/20 1600 (!) 127/45 97.6 F (36.4 C) Oral 80 25 97 % 08/29/20 1500 (!) 118/43 81 22 98 % 08/29/20 1400 (!) 123/50 97.9 F (36.6 C) Oral 82 23 97 % 08/29/20 1300 (!) 136/52 81 24 97 % 08/29/20 1200 (!) 153/57 80 27 93 % 08/29/20 1100 124/65 71 27 96 % 08/29/20 1025 (!) 110/41 81 25 (!) 88 % 08/29/20 1024 71 23 91 % p[ostb ERCP 08/28 Stones extracted and Biliary sphincterotomy done BC still pend GNR but U cx ESBL Kleb Cholecystostomy could not be done 05/28 WBC 18 up likely a reaction to the ERCP Creat a little up 1.28 Patient is awake he is off pressors, alert appropriate responding Abdomen is not tender on the right upper quadrant anymore. He feels much better in general, family on the bedside updated Discussed with nurse as well Summary of relevant labs: Labs: WBC 15 16 - 18 Creatinine 0.75 - 128 AST 49 - 56 AST 50 - 42 Bilirubin 5.98 Micro: Blood culture 08/27 gram-negative rods next 2 urine culture 08/27 kLEB esbl MRSA nasal + swab Imaging: CXR 6/250 Mild bibasilar atelectasis or airspace disease, with improved aeration on the left in the interval. US GB 08/28 Markedly limited examination due to patient body habitus and overlying bowel gas. Evaluation for cholelithiasis or acute cholecystitis is limited on this study. As a was inflammatory changes seen about the gallbladder the recent CT, if there is clinical concern for acute cholecystitis, HIDA scan may be considered for further evaluation. Patient's known choledocholithiasis is not well appreciated sonographically. The common bile duct appears normal in caliber measuring 5 mm. Increased echogenicity of the liver parenchyma, which may reflect underlying hepatic steatosis or other chronic liver parenchymal disease ERCP 08/28 - PROCEDURES PERFORMED: 1. Transoral Endoscopic retrograde cholangiopancreatography (ERCP). 2. Cholangiogram 3. Biliary sphincterotomy 4. Balloon sweeps with extraction of stone and pus 5. Placement of 10 F x 7 cm plastic biliary stent 6. Fluoroscopy POSTPROCEDURE DIAGNOSIS: CBD stones and sludge Retained gastric contents CT of the head no acute abnormality 08/28 CT chest 08/27 no pulmonary emboli, dilatation of the main pulmonary artery that might reflect pulmonary arterial hypertension, no pneumonia H with edema surrounding the gallbladder suggesting acute cholecystitis with no cholelithiasis on CT but multiple stones are seen in the common bile duct Right lower quadrant ileostomy with post colectomy Redundant loop of ileum in the parastomal hernia No bowel thickening Post left inguinal hernia repair, with fat-containing persistent hernia but no strangulation Kidneys unremarkable I have personally reviewed the past medical history, past surgical history, medications, social history, and family history, and I haveupdated the database accordingly. Allergies: Oxytetracycline, Penicillins, and Sulfa antibiotics Review of Systems: Review of Systems Constitutional: Positive for fatigue. Negative for activity change, appetite change and fever. HENT: Negative for congestion. Eyes: Negative for itching. Respiratory: Negative for apnea, cough and shortness of breath. Cardiovascular: Negative for chest pain. Gastrointestinal: Negative for abdominal distention and abdominal pain. Endocrine: Negative for heat intolerance. Genitourinary: Positive for dysuria. Negative for hematuria. Musculoskeletal: Negative for arthralgias. Skin: Negative for color change. Allergic/Immunologic: Negative for immunocompromised state. Neurological: Positive for weakness. Negative for dizziness. Hematological: Does not bruise/bleed easily. Psychiatric/Behavioral: Negative for agitation and decreased concentration. Physical Examination : Physical Exam Constitutional: General: He is not in acute distress. Appearance: He is obese. He is ill-appearing. Comments: arousable HENT: Head: Normocephalic and atraumatic. Nose: Nose normal. Mouth/Throat: Mouth: Mucous membranes are moist. Eyes: General: No scleral icterus. Conjunctiva/sclera: Conjunctivae normal. Cardiovascular: Rate and Rhythm: Normal rate and regular rhythm. Heart sounds: Normal heart sounds. Pulmonary: Effort: No respiratory distress. Breath sounds: Normal breath sounds. Abdominal: General: There is no distension. Palpations: Abdomen is soft. Tenderness: There is no abdominal tenderness. Comments: Right ileostomy with herniated loops Genitourinary: Comments: Urine hemal Musculoskeletal: General: No tenderness or signs of injury. Cervical back: Neck supple. No tenderness. Skin: General: Skin is warm. Coloration: Skin is not pale. Findings: No erythema. Neurological: General: No focal deficit present. Mental Status: He is oriented to person, place, and time. Cranial Nerves: No cranial nerve deficit. Psychiatric: Mood and Affect: Mood normal. Behavior: Behavior normal. Thought Content: Thought content normal. Past Medical History: Past Medical History: Diagnosis Date Chronic anticoagulation: Coumadin Coagulopathy (HCC) HLD (hyperlipidemia) HTN (hypertension) Hypomagnesemia 08/27/[address] (HCC) Morbid obesity (HCC) [place] syndrome Paroxysmal atrial fibrillation (HCC) Type 2 diabetes mellitus (HCC) Past Surgical History: Past Surgical History: Procedure Laterality Date COLON SURGERY Subtotal colectomy GASTROSTOMY TUBE PLACEMENT HERNIA REPAIR ILEOSTOMY OR JEJUNOSTOMY Medications: enoxaparin 40 mg Subcutaneous Daily miconazole Topical BID meropenem 1,000 mg Intravenous Q8H insulin lispro 0-12 Units Subcutaneous 4x Daily AC & HS sodium chloride flush 5-40 mL Intravenous 2 times per day Social History: Social History Socioeconomic History Marital status: Unknown Spouse name: Not on file Number of children: Not on file Years of education: Not on file Highest education level: Not on file Occupational History Not on file Tobacco Use Smoking status: Never Smoker Smokeless tobacco: Never Used Substance and Sexual Activity Alcohol use: Not on file Drug use: Not on file Sexual activity: Not on file Other Topics Concern Not on file Social History Narrative Not on file Social Determinants of Health Financial Resource Strain: Difficulty of Paying Living Expenses: Food Insecurity: Worried About Running Out of Food in the Last Year: Ran Out of Food in the Last Year: Transportation Needs: Lack of Transportation (Medical): Lack of Transportation (Non-Medical): Physical Activity: Days of Exercise per Week: Minutes of Exercise per Session: Stress: Feeling of Stress : Social Connections: Frequency of Communication with Friends and Family: Frequency of Social Gatherings with Friends and Family: Attends [employer] Services: Active Member of Clubs or Organizations: Attends Club or Organization Meetings: Marital Status: Intimate Partner Violence: Fear of Current or Ex-Partner: Emotionally Abused: Physically Abused: Sexually Abused: Family History: Family History Problem Relation Age of Onset Diabetes Mother Other Father Medical Decision Making: I have independently reviewed/ordered the following labs: CBC with Differential: Recent Labs 08/27/20 1420 08/28/20 1355 08/29/20 0542 WBC 15.1* 16.8* 18.1* HGB 15.2 14.1 11.6* HCT 47.8 46.4 37.7* PLT 139 110* 123* LYMPHOPCT 3* -- -- MONOPCT 4 -- -- BMP: Recent Labs 08/28/20 0731 08/28/20 1355 08/29/20 0542 NA 135 136 136 K 4.3 3.6* 4.2 CL 98 98 104 CO2 30 28 19* BUN 22 25* 30* CREATININE 0.75 1.11 1.28* MG 1.6 -- 1.9 Hepatic Function Panel: Recent Labs 08/28/20 0731 08/29/20 0542 PROT 5.8* 5.2* LABALBU 2.5* 2.2* BILIDIR -- 7.93* IBILI -- 0.94 BILITOT 5.98* 8.87* ALKPHOS 307* 263* ALT 49* 42* AST 50* 56* No results for input(s): RPR in the last 72 hours. No results for input(s): HIV in the last 72 hours. No results for input(s): BC in the last 72 hours. Lab Results Component Value Date CREATININE 1.28 08/29/2020 GLUCOSE 220 08/29/2020 Detailed results: Thank you for allowing us to participate in the care of this patient.Please call with questions. This note is created with the assistance of a speech recognition program. While intending to generate adocument that actually reflects the content of the visit, the document can still have some errors including those of syntax and sound a like substitutions which may escape proof reading. It such instances, actual meaningcan be extrapolated by contextual diversion. Samy Russell MD Office: [facility] / office [phone] Physician Progress Note PATIENT: KAMRAN HARLEY CSN #: [id number] : 1950 ADMIT DATE: 08/27/2020 12:46 PM DISCH DATE: RESPONDING PROVIDER #: MAIN ASCENCIO QUERY TEXT: Pt admitted with Sepsis . Pt noted to have tachypnea respiratory rate of 38 on arrival to ED with increasing sob and dyspnea with conversation . If possible, please document in the progress notes and discharge summary if you are evaluating and/or treating any of the following: The medical record reflects the following: Risk Factors: sepsis, morbid obesity, a fib, Clinical Indicators: per ED report presented with sob with sats in 80s on route to hospital noted dyspnea with conversation. epic record indicates tachypnea with labored respirations Treatment: oxygen, monitoring Please Call if any questions Thank you Kaushik BROOKE CCDS Options provided: -- Acute respiratory failure with hypoxia -- Acute respiratory failure with hypercapnia -- Acute respiratory failure unknown if hypoxia or hypercapnia -- Other - I will add my own diagnosis -- Disagree - Not applicable / Not valid -- Disagree - Clinically unable to determine / Unknown -- Refer to Clinical Documentation Reviewer PROVIDER RESPONSE TEXT: This patient is in acute respiratory failure with hypoxia. Query created by: Faiza Cuba on 08/28/2020 7:31 AM QUERY TEXT: Pt admitted with Sepsis noted documentation of UTI per urology consult with UA positive for bacteria, nitrite and leukocyte esterase with hematuria . Pt noted to have chronic lees catheter per urology consult note that was changed 5 days ago . If possible, please document in the progress notes and discharge summary if you are evaluating and / or treating any of the following: The medical record reflects the following: Risk Factors: UTI, chronic indwelling lees Clinical Indicators: UA positive many bacteria, nitrite, moderate leukocyte esterase hematuria noted UTI and chronic lees by urology consult. urine culture is pending. blood culture is positive for E COLI. Treatment: IV antibiotics Please Call if any questions Thank you Kaushik BROOKE CCDS Options provided: -- Sepsis related to chronic indwelling lees -- Sepsis unrelated to chronic indwelling lees -- Other - I will add my own diagnosis -- Disagree - Not applicable / Not valid -- Disagree - Clinically unable to determine / Unknown -- Refer to Clinical Documentation Reviewer PROVIDER RESPONSE TEXT: This patient has sepsis related to chronic indwelling lees . Query created by: Faiza Cuba on 08/28/2020 7:37 AM Electronically signed by: MAIN ASCENCIO 08/29/2020 11:57 AM Images from the original note were not included. [facility] Department of Internal Medicine & Critical Care - Staff Internal Medicine Teaching Service Critical Care - Daily Progress Note Date and time: 08/29/2020 8:17 AM Patient's name: Kamran Harley Patient's account/billing number: [id number] Patient's Date of : 1950 Age: 70 y.o. Date of Admission: 08/27/2020 12:46 PM Length of stay during current admission: 2 Primary Care Physician: Jesus Chopra DO ICU Attending Physician: Magdaleno Wilson DO Code Status: Full Code Reason for ICU admission: No chief complaint on file. Subjective: Pt was seen and examined at bedside. Intubated, sedated and mechanically ventilated. Plan is to wean and extubated today Needing 8mcg/m of norepinephrine to maintain MAP Labs reviewed. Developing CHACE. OVERNIGHT EVENTS: No acute events overnight. BRIEF SUMMARY: Kamran Harley is a 70 y.o. male who presents with a chief complaint of fatigue, not feeling well, urinary tract infection and shortness of breath since about 5 days. He first presented to [facility] for these complaints. He has a lengthy surgical history of subtotal colectomy with end ileostomy in 2014 and revision of ostomy and repair of peristomal hernia in 2019. Patient reports that he has not been able to spontaneously void due to urinary retention since he has had the surgery. He manages this with straight caths and chronic foleys. Per chart review patient reportedly has history of multiple DVTs and has been on chronic warfarin. INR on presentation was >17 He was originally admitted under Intermed service but went into septic shock and was transferred to the ICU for further management. CT scan suggestive of choledocholithiasis and ascending cholangitis. ERCP was done 08/28/20. Patient continued on Meropenem and Amikacin. CURRENT VENTILATION STATUS: [x] Ventilator [] BIPAP [] Nasal Cannula [] Room Air SEDATION: Propofol @ 15 Midazolam @ Precedex @ Fentanyl @ PARALYZED: No VASOPRESSORS: Levophed @ 8 URINE OUTPUT: [] Good [x] Low [] Anuric REVIEW OF SYSTEMS Unable to obtain OBJECTIVE: VITAL SIGNS: BP (!) 111/52 Pulse 70 Temp 99.3 F (37.4 C) (Oral) Resp 23 Ht 6' 3 (1.905 m) Wt (!) 410 lb (186 kg) SpO2 97% BMI 51.25 kg/m Tmax over 24 hours: Temp (24hrs), Av.8 F (34.3 C), Min:62.4 F (16.9 C), Max:99.5 F (37.5 C) Patient Vitals for the past 8 hrs: BP Temp Temp src Pulse Resp SpO2 Weight 08/29/20 0750 70 23 97 % 08/29/20 0744 64 20 98 % 08/29/20 0700 (!) 111/52 64 20 99 % 08/29/20 0645 (!) 113/55 65 21 98 % 08/29/20 0630 (!) 112/53 65 21 98 % 08/29/20 0615 104/61 65 21 98 % 08/29/20 0600 121/61 99.3 F (37.4 C) Oral 69 21 97 % (!) 410 lb (186 kg) 08/29/20 0545 (!) 111/50 67 21 98 % 08/29/20 0530 (!) 110/49 66 21 99 % 08/29/20 0515 (!) 124/56 68 21 98 % 08/29/20 0500 (!) 122/53 68 20 98 % 08/29/20 0445 (!) 121/53 64 21 98 % 08/29/20 0430 (!) 124/50 63 21 98 % 08/29/20 0415 (!) 130/55 63 21 98 % 08/29/20 0400 (!) 128/58 99 F (37.2 C) Oral 64 21 97 % 08/29/20 0345 (!) 132/57 64 21 97 % 08/29/20 0330 (!) 129/57 61 22 99 % 08/29/20 0315 137/60 62 22 99 % 08/29/20 0300 (!) 124/58 62 22 99 % 08/29/20 0245 (!) 122/59 64 22 99 % 08/29/20 0230 (!) 97/52 73 22 98 % 08/29/20 0215 (!) 112/52 66 22 99 % 08/29/20 0200 (!) 111/52 99.3 F (37.4 C) Oral 69 22 99 % 08/29/20 0145 (!) 124/55 62 22 100 % 08/29/20 0130 (!) 113/53 61 22 100 % 08/29/20 0115 (!) 118/53 63 22 100 % 08/29/20 0100 (!) 147/60 54 22 100 % 08/29/20 0045 (!) 90/46 69 22 100 % 08/29/20 0030 (!) 98/44 69 22 100 % Intake/Output Summary (Last 24 hours) at 08/29/2020 0817 Last data filed at 08/29/2020 0738 Gross per 24 hour Intake 4865.5 ml Output 1140 ml Net 3725.5 ml Date 08/29/20 0000 - 08/29/20 2359 Shift 2057-3199 9108-8136 0196-9831 24 Hour Total INTAKE I.V.(mL/kg) 2050.4(11) 2050.4(11) Blood(mL/kg) 303(1.6) 303(1.6) Shift Total(mL/kg) 2353.4(12.7) 2353.4(12.7) OUTPUT Urine(mL/kg/hr) 230(0.2) 230 Stool(mL/kg) 500(2.7) 500(2.7) Shift Total(mL/kg) 730(3.9) 730(3.9) Weight (kg) 186 186 186 186 Wt Readings from Last 3 Encounters: 08/29/20 (!) 410 lb (186 kg) Body mass index is 51.25 kg/m . PHYSICAL EXAM: Physical Exam - Constitutional: Intubated, sedated and mechanically ventilated Mental Status: Sedated on propofol. Lungs: Clear to auscultation bilaterally, normal effort. Heart: Regular rate and rhythm, no murmur. Abdomen: Soft, distended, normal bowel sounds. Extremities: No edema, redness. Chronic venous stasis dermatitis in bilateral lower extremities Skin: Warm, dry, no gross lesions or rashes. VENT SETTINGS (Comprehensive) (if applicable): Vent Information $Ventilation: $Subsequent Day Skin Assessment: Clean, dry, & intact Equipment ID: [id number] Equipment Changed: HME Vent Type: Servo i Vent Mode: (S) CPAP (daily sbt) Vt Ordered: 580 mL Rate Set: 20 bmp Pressure Support: 6 cmH20 FiO2 : 30 % SpO2: 97 % SpO2/FiO2 ratio: 323.33 Sensitivity: 3 PEEP/CPAP: 5 I Time/ I Time %: 0.8 s Humidification Source: HME Additional Respiratory Assessments Pulse: 70 Resp: 23 SpO2: 97 % End Tidal CO2: 38 Position: Semi-Matt's Humidification Source: HME Oral Care Completed?: Yes Oral Care: Teeth brushed, Mouthwash, Mouth swabbed, Mouth suctioned Subglottic Suction Done?: Yes Cuff Pressure (cm H2O): (mov) ABGs: Lab Results Component Value Date NBS8VNP NOT REPORTED 08/29/2020 FIO2 40.0 08/29/2020 Lactic Acid: No results found for: LACTA DATA: Complete Blood Count: Recent Labs 08/28/20 0731 08/28/20 1355 08/29/20 0542 WBC 10.2 16.8* 18.1* HGB 12.9* 14.1 11.6* MCV 88.8 90.6 89.5 PLT 127* 110* 123* RBC 4.73 5.12 4.21 HCT 42.0 46.4 37.7* MCH 27.3 27.5 27.6 MCHC 30.7 30.4 30.8 RDW 15.6* 15.7* 16.0* MPV 11.2 11.2 11.8 PT/INR: Lab Results Component Value Date PROTIME 11.1 08/29/2020 INR 1.0 08/29/2020 PTT: No results found for: APTT, PTT Basal Metabolic Profile: Recent Labs 08/28/20 0731 08/28/20 1355 08/29/20 0542 NA 135 136 136 K 4.3 3.6* 4.2 BUN 22 25* 30* CREATININE 0.75 1.11 1.28* CL 98 98 104 CO2 30 28 19* LFTS Recent Labs 08/27/20 1420 08/28/20 0731 08/29/20 0542 ALKPHOS 470* 307* 263* ALT 67* 49* 42* AST 75* 50* 56* BILITOT 5.92* 5.98* 8.87* BILIDIR -- -- 7.93* LABALBU 3.0* 2.5* 2.2* MEDICATIONS: Scheduled Meds: miconazole Topical BID meropenem 1,000 mg Intravenous Q8H amikacin (AMIKIN) IVPB 7.5 mg/kg (Adjusted) Intravenous Daily chlorhexidine 15 mL Mouth/Throat BID insulin lispro 0-12 Units Subcutaneous 4x Daily AC & HS sodium chloride flush 5-40 mL Intravenous 2 times per day Continuous Infusions: norepinephrine 8 mcg/min (08/29/20 0500) sodium chloride propofol 15 mcg/kg/min (08/29/20 0705) sodium chloride 250 mL/hr at 08/29/20 0801 dextrose PRN Meds: guaiFENesin, 200 mg, Q4H PRN albuterol, 2.5 mg, Q6H PRN diphenhydrAMINE, 25 mg, Q6H PRN LORazepam, 0.5 mg, Q6H PRN sodium chloride, , PRN acetaminophen, 650 mg, Q6H PRN Or acetaminophen, 650 mg, Q6H PRN magnesium sulfate, 1,000 mg, PRN ondansetron, 4 mg, Q8H PRN Or ondansetron, 4 mg, Q6H PRN polyethylene glycol, 17 g, Daily PRN potassium chloride, 40 mEq, PRN Or potassium alternative oral replacement, 40 mEq, PRN Or potassium chloride, 10 mEq, PRN sodium chloride flush, 10 mL, PRN glucose, 15 g, PRN dextrose, 12.5 g, PRN glucagon (rDNA), 1 mg, PRN dextrose, 100 mL/hr, PRN sodium chloride flush, 5-40 mL, PRN ASSESSMENT: Active Problems: Elevated liver enzymes Diabetes mellitus (HCC) 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) Resolved Problems: * No resolved hospital problems. * PLAN: Metabolic Encephalopathy secondary to E Coli Septicemia Septic shock secondary to E Coli septicemia - Focus either urinary or from ascending cholangitis. - Sepsis protocol IVF resuscitation. - Continue meropenem due to history of multiple UTIs and concern for ESBL. And additional doses of amikacin for synergy. - Appreciate further infectious disease recommendations. Oliguric CHACE likely secondary to ischemic ATN - Urine sodium, creatinine sent - Will monitor. Chronic Urinary Retention - Straight caths self at home for about five years now. - Lees in place now. Placed 6 days ago. Appreciate Urology recommendations. Cholecystitis with Choledocholithiasis - Possibly causing Ascending cholangitis due to obstruction. - ERCP and biliary stent placement done 08/28/20. Will need repeat ERCP in 1 month to remove the stent. Supratherapeutic INR - Resolved - Was on chronic Coumadin for multiple DVTs. DVT ppx: Lovenox 40mg GI ppx: Pepcid Diet: NPO Isolation: Not indicated Humphrey Dejesus MD PGY-2, Internal Medicine Resident [facility], [place] 08/29/2020, 8:17 AM Associated attestation - Magdaleno Wilson DO - 08/29/2020 3:00 PM EDT Attending Physician Statement I have discussed the care of Kamran Harley, including pertinent history and exam findings, with the pulmonary critical care fellow/resident/PET CAREGIVER. I have seen and examined the patient and the [place] elements of all parts of the encounter have been performed by me. I agree with the assessment, plan and orders as documented by the fellow/resident/PET CAREGIVER. Appreciate GI intervention yesterday. ERCP and sphincterotomy demonstrated a large amount of pus draining from biliary ducts. At least 7 stones extracted. Much more stable. Patient states that his abdominal pain has resolved. Remained intubated overnight per anesthesia instructions. Tolerated weaning and extubation this morning well. Hemodynamically stable. Weaned off norepinephrine. Abdomen soft and nontender. Good bowel sounds. Continue antibiotics. Critical care time 40 minutes [facility] Progress Note Kamran Harley is a 70 y.o. male patient. Hospitalization Day:2 Chief consult reason: Elevated liver enzymes Subjective: Patient seen and examined, patient had ERCP completed last night with removal of 7 stones and pus. Stent placed. Advised to hold Coumadin for 7 days with a restart date of 09/04 due to sphincterotomy Patient is intubated but anticipate extubation later today. OG in place with bilious output. Slight facial grimacing with palpation to right upper quadrant Patient is awake and responds appropriately. Patient was seen per ID and started on meropenem and amikacin Bilirubin crease slightly 8.8, WBC is up slightly to 18, hemoglobin 11.6 VITALS: BP (!) 111/52 Pulse 70 Temp 99.3 F (37.4 C) (Oral) Resp 23 Ht 6' 3 (1.905 m) Wt (!) 410 lb (186 kg) SpO2 97% BMI 51.25 kg/m TEMPERATURE: Current - Temp: 99.3 F (37.4 C); Max - Temp Av.8 F (34.3 C) Min: 62.4 F (16.9 C) Max: 99.5 F (37.5 C) Physical Assessment: General appearance: Intubated, arouses easily Mental Status: Follows commands Lungs: clear to auscultation bilaterally, normal effort Heart: regular rate and rhythm, no murmur Abdomen: soft, nontender, nondistended, normal bowel sounds, no masses, hepatomegaly, splenomegaly Extremities: no edema, redness, tenderness in the calves Skin: no gross lesions, rashes, induration Data Review: Labs and Imaging: CBC: Recent Labs 08/27/20 1420 08/28/20 0731 08/28/20 1355 08/29/20 0542 WBC 15.1* 10.2 16.8* 18.1* HGB 15.2 12.9* 14.1 11.6* MCV 87.2 88.8 90.6 89.5 RDW 15.2* 15.6* 15.7* 16.0* PLT 139 127* 110* 123* ANEMIA STUDIES: No results for input(s): LABIRON, TIBC, FERRITIN, [id number], FOLATE, OCCULTBLD in the last 72 hours. BMP: Recent Labs 08/28/20 0731 08/28/20 1355 08/29/20 0542 NA 135 136 136 K 4.3 3.6* 4.2 CL 98 98 104 CO2 30 28 19* BUN 22 25* 30* CREATININE 0.75 1.11 1.28* GLUCOSE 211* 183* 220* CALCIUM 8.7 8.7 7.6* LFTS: Recent Labs 08/27/20 1420 08/28/20 0731 08/29/20 0542 ALKPHOS 470* 307* 263* ALT 67* 49* 42* AST 75* 50* 56* BILITOT 5.92* 5.98* 8.87* BILIDIR -- -- 7.93* LABALBU 3.0* 2.5* 2.2* Amylase/Lipase and Ammonia: No results for input(s): AMYLASE, LIPASE, AMMONIA in the last 72 hours. Acute Hepatitis Panel: No results found for: HEPBSAG, HEPCAB, HEPBIGM, HEPAIGM HCV Genotype: No results found for: HEPATITISCGENOTYPE HCV Quantitative: No results found for: HCVQNT LIVER WORK UP: AFP No results found for: AFP Alpha 1 antitrypsin No results found for: A1A NIKKO No results found for: NIKKO AMA No results found for: MITOAB ASMA No results found for: SMOOTHMUSCAB PT/INR Recent Labs 08/28/20 1506 08/28/20 1803 08/29/20 0542 PROTIME 19.8* 17.9* 11.1 INR 2.0 1.8 1.0 Cancer Markers: CEA: No results for input(s): CEA in the last 72 hours. Ca 125: No results for input(s): CA125 in the last 72 hours. Ca 19-9: Invalid input(s): CA19-9 AFP: No results for input(s): AFP in the last 72 hours. Lactic acid:Invalid input(s): LACTIC ACID Radiology Review: No results found. 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 * GI Impression: 1. Ascending cholangitis-ID on board-on amikacin and meropenem 2. Choledochal lithiasis-s/P ERCP with stent placement and sphincterotomy, removal of stones and pus 3. Gram-negative septicemia 4. Iatrogenic coagulopathy-resolved. INR 1.0 5. 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 Continue with current medical management including antibiotic per ID 2. Recommend holding Coumadin x7 days with restart date of 09/04 given patient had sphincterotomy 3. Daily labs including CBC, BMP, LFT, INR 4. Once extubated patient may have few ice chips then clear diet 5. Will follow closely This plan was formulated in collaboration with Dr. Erica MD Thank you for allowing me to participate in the care of your patient. Please feel free to contact me with any questions or concerns. Alvaro Purcell APRN - [facility] This note was created with the assistance of a speech-recognition program. Although the intention is to generate a document that actually reflects the content of the visit, no guarantees can be provided that every mistake has been identified and corrected by editing. Associated attestation - Inessa Maldonado MD - 08/29/2020 2:58 PM EDT Attending Physican Attestation Patient seen and examined with Ms. Alvaro Purcell CNP. I have reviewed the above note and confirmed the [place] elements of the medical history and physical exam. I have discussed the findings, established the care plan and recommendations with Ms. Purcell and primary team. Inessa Maldonado MD MD Gastroenterology Images from the original note were not included. General Surgery Progress Note PATIENT NAME: Kamran Harley AGE: 70 y.o. DATE: 08/29/2020 SURGEON: Misha PRIMARY CARE PHYSICIAN: Jesus Chopra DO Patient evaluated at the request of Dr. Ascencio Reason for evaluation: Concern for cholecystitis/choledocholithiasis Patient information was obtained from patient. History/Exam limitations: none. IMPRESSION: 1. 70 y.o. male with gallbladder edema and choledocholithiasis S/p ERCP with sphincterotomy, removal of gallbladder stones and sludge, and biliary stent placement MEDICAL DECISION MAKING AND PLAN: 1. Continue medical management and support per primary team 2. GI following, s/p ERCP with sphincterotomy and biliary stent placement due to gallstones and sludge 3. Trend HFP 4. Recommend RUQ US to better evaluate for acute cholecystitis. If evidence of acute cholecystitis, patient will likely need IR placed cholecystostomy tube HISTORY: History of Chief Complaint: Kamran Harley is a 70 y.o. male who presented as transfer from an outside facility for shortness of breath, fatigue, hematuria, and concerns of UTI. Was transferred to [facility] for greater level of service. Patient is a poor historian. Though states that he has had abdominal discomfort, nausea, and chills for close to a week. CT scan preformed shows pericholecystic edema and choledocholithiasis. Patient has elevated INR of 12.7 on Warfarin at home for numerous DVTs in upper and lower extremities. Has a lengthy surgical history of subtotal colectomy with end ileostomy in 2014 and revision of ostomy and repair of peristomal hernia in 2019. Pt seen and examined. POD#1 s/p ERCP with sphincterotomy and stent placement. Remains intubated this AM post procedure. Past Medical History has a past medical history of Chronic anticoagulation: Coumadin, Coagulopathy (HCC), HLD (hyperlipidemia), HTN (hypertension), Hypomagnesemia, Ileostomy in place (HCC), Morbid obesity (HCC), Marni syndrome, Paroxysmal atrial fibrillation (HCC), and Type 2 diabetes mellitus (HCC). Past Surgical History has a past surgical history that includes Colon surgery; ileostomy or jejunostomy; Hernia repair; and Gastrostomy tube placement. Medications Prior to Admission medications Medication Sig Start Date End Date Taking? Authorizing Provider cephALEXin (KEFLEX) 500 MG capsule Take 500 mg by mouth daily Yes Historical Provider, furosemide (LASIX) 20 MG tablet Take 20 mg by mouth See Admin Instructions Daily Sunday through Sunday Yes Historical Provider, furosemide (LASIX) 20 MG tablet Take 20 mg by mouth See Admin Instructions Three times daily Sunday and Sunday Yes Historical Provider, sucralfate (CARAFATE) 1 GM tablet Take 2 g by mouth Daily with supper Yes Historical Provider, sucralfate (CARAFATE) 1 GM tablet Take 2 g by mouth nightly Yes Historical Provider, losartan (COZAAR) 50 MG tablet Take 50 mg by mouth daily Yes Historical Provider, POTASSIUM CHLORIDE PO Take 20 mEq by mouth 3 times daily Yes Historical Provider, atorvastatin (LIPITOR) 20 MG tablet Take 20 mg by mouth daily Yes Historical Provider, DULoxetine (CYMBALTA) 60 MG extended release capsule Take 60 mg by mouth daily Yes Historical Provider, cyanocobalamin 1000 MCG/ML injection Inject 1,000 mcg into the muscle See Admin Instructions monthly Yes Historical Provider, metFORMIN (GLUCOPHAGE) 500 MG tablet Take 1,000 mg by mouth 2 times daily (with meals) Yes Historical Provider, Semaglutide, 1 MG/DOSE, (OZEMPIC, 1 MG/DOSE,) 2 MG/1.5ML SOPN Inject 2 mg into the skin once a week Yes Historical Provider, Insulin Regular Human (HUMULIN R IJ) Inject 15 Units as directed Daily with lunch Yes Historical Provider, insulin glargine (LANTUS) 100 UNIT/ML injection vial Inject 50 Units into the skin Daily with supper Yes Historical Provider, warfarin (COUMADIN) 10 MG tablet Take 10 mg by mouth Six times weekly Sunday through Sunday Yes Historical Provider, warfarin (COUMADIN) 5 MG tablet Take 5 mg by mouth once a week Sunday Yes Historical Provider, Ascorbic Acid (VITAMIN C) 250 MG tablet Take 500 mg by mouth daily Yes Historical Provider, Cholecalciferol (VITAMIN D3) 125 MCG (5000 UT) TABS Take 1 tablet by mouth daily Yes Historical Provider, Biotin 1000 MCG TABS Take 1,000 mcg by mouth 2 times daily Yes Historical Provider, Scheduled Meds: miconazole Topical BID meropenem 1,000 mg Intravenous Q8H amikacin (AMIKIN) IVPB 7.5 mg/kg (Adjusted) Intravenous Daily chlorhexidine 15 mL Mouth/Throat BID insulin lispro 0-12 Units Subcutaneous 4x Daily AC & HS sodium chloride flush 5-40 mL Intravenous 2 times per day Continuous Infusions: norepinephrine 8 mcg/min (08/29/20 0500) sodium chloride propofol 15 mcg/kg/min (08/29/20 0705) sodium chloride 250 mL/hr at 08/29/20 0400 dextrose PRN Meds:.guaiFENesin, albuterol, diphenhydrAMINE, LORazepam, sodium chloride, acetaminophen OR acetaminophen, magnesium sulfate, ondansetron OR ondansetron, polyethylene glycol, potassium chloride OR potassium alternative oral replacement OR potassium chloride, sodium chloride flush, glucose, dextrose, glucagon (rDNA), dextrose, sodium chloride flush Allergies is allergic to oxytetracycline, penicillins, and sulfa antibiotics. Family History family history includes Diabetes in his mother; Other in his father. Social History reports that he has never smoked. He has never used smokeless tobacco. has no history on file for alcohol use. has no history on file for drug use. Review of Systems Patient intubated and sedated. PHYSICAL: VITALS: height is 6' 3 (1.905 m) and weight is 401 lb 7.3 oz (182.1 kg) (abnormal). His oral temperature is 99.3 F (37.4 C). His blood pressure is 111/52 (abnormal) and his pulse is 64. His respiration is 20 and oxygen saturation is 99%. CONSTITUTIONAL: intubated and sedated HEENT: Head is normocephalic, atraumatic NECK: Soft, trachea midline and straight LUNGS: Normal effort on mechanical ventilation, no respiratory distress, no accessory muscle use CARDIOVASCULAR: Regular rate and rhythm ABDOMEN: soft, obese, no peritoneal signs EXTREMITIES: pitting lower extremity edema LABS: Recent Labs 08/27/20 1420 08/27/20 1717 08/28/20 0731 08/28/20 1355 08/28/20 1506 08/28/20 1803 08/29/20 0542 WBC 15.1* -- 10.2 16.8* -- -- 18.1* HGB 15.2 -- 12.9* 14.1 -- -- 11.6* HCT 47.8 -- 42.0 46.4 -- -- 37.7* PLT 139 -- 127* 110* -- -- 123* NA 132* -- 135 136 -- -- 136 K 4.9 -- 4.3 3.6* -- -- 4.2 CL 93* -- 98 98 -- -- 104 CO2 25 -- 30 28 -- -- 19* BUN 21 -- 22 25* -- -- 30* CREATININE 0.82 -- 0.75 1.11 -- -- 1.28* MG 1.5* -- 1.6 -- -- -- 1.9 CALCIUM 9.5 -- 8.7 8.7 -- -- 7.6* INR >17.8* -- 12.7* 7.9* 2.0 1.8 1.0 AST 75* -- 50* -- -- -- 56* ALT 67* -- 49* -- -- -- 42* BILITOT 5.92* -- 5.98* -- -- -- 8.87* BILIDIR -- -- -- -- -- -- 7.93* NITRU -- POSITIVE* -- -- -- -- -- COLORU -- DARK YELLOW* -- -- -- -- -- BACTERIA -- MANY* -- -- -- -- -- Recent Labs 08/29/20 0542 ALKPHOS 263* ALT 42* AST 56* BILITOT 8.87* BILIDIR 7.93* LABALBU 2.2* CBC with Differential: Lab Results Component Value Date WBC 18.1 08/29/2020 RBC 4.21 08/29/2020 HGB 11.6 08/29/2020 HCT 37.7 08/29/2020 PLT 123 08/29/2020 MCV 89.5 08/29/2020 MCH 27.6 08/29/2020 MCHC 30.8 08/29/2020 RDW 16.0 08/29/2020 LYMPHOPCT 3 08/27/2020 MONOPCT 4 08/27/2020 BASOPCT 0 08/27/2020 MONOSABS 0.60 08/27/2020 LYMPHSABS 0.45 08/27/2020 EOSABS 0.00 08/27/2020 BASOSABS 0.00 08/27/2020 DIFFTYPE NOT REPORTED 08/27/2020 CMP: Lab Results Component Value Date NA 136 08/29/2020 K 4.2 08/29/2020 CL 104 08/29/2020 CO2 19 08/29/2020 BUN 30 08/29/2020 CREATININE 1.28 08/29/2020 GFRAA >60 08/29/2020 LABGLOM 56 08/29/2020 GLUCOSE 220 08/29/2020 PROT 5.2 08/29/2020 LABALBU 2.2 08/29/2020 CALCIUM 7.6 08/29/2020 BILITOT 8.87 08/29/2020 ALKPHOS 263 08/29/2020 AST 56 08/29/2020 ALT 42 08/29/2020 PT/INR: Lab Results Component Value Date PROTIME 11.1 08/29/2020 INR 1.0 08/29/2020 Blood Culture: No components found for: CBLOOD, CFUNGUSBL RADIOLOGY: CT ABDOMEN PELVIS W IV CONTRAST Additional Contrast? None Result Date: 08/27/2020 CTA OF THE CHEST: 1. No pulmonary embolism. 2. Dilation of the main pulmonary artery may signify pulmonary arterial hypertension. 3. No evidence of pneumonia. CT OF THE ABDOMEN AND PELVIS: 1. Edema surrounding the gallbladder, likely indicating acute cholecystitis. While no cholelithiasis is evident by CT, multiple calculi are seen in the common bile duct (choledocholithiasis). 2. Status post colectomy with right lower quadrant ileostomy. 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 No bowel wall thickening or obstruction. 3. Status post left inguinal hernia repair, with evidence of a recurrent shallow fat-containing hernia. No evidence of fat strangulation. CT CHEST PULMONARY EMBOLISM W CONTRAST Result Date: 08/27/2020 CTA OF THE CHEST: 1. No pulmonary embolism. 2. Dilation of the main pulmonary artery may signify pulmonary arterial hypertension. 3. No evidence of pneumonia. CT OF THE ABDOMEN AND PELVIS: 1. Edema surrounding the gallbladder, likely indicating acute cholecystitis. While no cholelithiasis is evident by CT, multiple calculi are seen in the common bile duct (choledocholithiasis). 2. Status post colectomy with right lower quadrant ileostomy. 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 No bowel wall thickening or obstruction. 3. Status post left inguinal hernia repair, with evidence of a recurrent shallow fat-containing hernia. No evidence of fat strangulation. Thank you for the interesting evaluation. Further recommendations to follow. Janessa Johnson DO Associated attestation - Luis Manuel Brumfield MD - 09/04/2020 8:50 AM EDT I personally evaluated the patient and directed the medical decision making with Resident/TIFF after the physical/radiologic exam and laboratory values were reviewed and confirmed. ANM Insert Arterial Line Date/Time: 08/29/20, 12:44 AM Performed by: Ariadne Romero RCP Patient identity confirmed: arm band and provided demographic data Time out: Immediately prior to procedure a time out was called to verify the correct patient, procedure, equipment, direct support staff. Preparation: Patient was prepped and draped in the usual sterile fashion. Location:right radial Skyler's test normal: yes Needle gauge: 20G Number of attempts: 2 Post-procedure: transparent dressing applied and line secured Patient tolerance: well Pt's daughter took his belongings home including cell phone. Patient admitted on Mechanical Ventilator Protocol. Patients height measured at 70 for an IBW 73kg Patient placed on the ventilator on settings as charted on flowsheeet. Ventilator Bronchodilator assessment Breath sounds: clear diminished bilaterally Inspiratory Pressure: 35 Plateau Pressure: 25 Patient assessed at level 1 [x] Bronchodilator Assessment BRONCHODILATOR ASSESSMENT SCORE Score 0 (Home) 1 2 3 4 Breath Sounds [] Chronic Ventilator: Patient at baseline [x] Mild Wheezes/ Clear [] Intermittent wheezes with good air entry [] Bilateral/unilateral wheezing with diminished air entry [] Insp/Exp wheeze and/or poor aeration Ventilator Pressures [] Chronic Ventilator [] Insp. Pressure less than 25 cm H20 [] Insp. Pressure less than 25 cm H20 [] Insp. Pressure exceeds 25 cm H20 [] Insp. Pressure exceeds 30 cm H20 Plateau Pressure [] NA [] Plateau Pressure less than 4 [] Plateau Pressure less than or equal to 5 [] Plateau Pressure greater than or equal to 6 [] Plateau Pressure greater than or equal to 8 Ariadne Romero RCP 8:33 PM Attending Physician Statement I have discussed the care of Kamran Harley, including pertinent history and exam findings, with the pulmonary critical care fellow/resident/PET CAREGIVER. I have seen and examined the patient and the [place] elements of all parts of the encounter have been performed by me. I agree with the assessment, plan and orders as documented by the fellow/resident/PET CAREGIVER. Transferred to medical ICU for evaluation and management of septic shock. Received 4 L of normal saline. Currently on 5 mcg of norepinephrine. Awake, alert, and conversant. Coagulopathy corrected with K Centra, 2 units fresh frozen plasma, and vitamin K. Repeat PT/INR pending. No abnormal bleeding encountered during central line placement. Vascular access very difficult. Plan for urgent ERCP. UTI noted although source of sepsis more likely biliary. Discussed in detail with family. Critical care time 40 minutes. Pt transferred to MICU, rm 117. Report called to assigned RN. Pt transported in bed with all documented belongings. Family notified of transfer. RAPID Covid 19 swab taken from left nare, labeled, placed in red dot bag, and handed off to second healthcare worker outside of room for transport to laboratory per hospital policy and procedure. Patient tolerated procedure fairly well. Transfusion of FFPs stopped when pt became tachycardic and hypoxic, complaining of chills. Physician Main Ascencio notified and does not suspect reaction to FFPs as he had 2 units yesterday. PAZ PASCUAL, RCPPatient Assessment complete. Elevated liver enzymes [R74.8] . Vitals: 08/28/20 0900 BP: 132/63 Pulse: 81 Resp: 24 Temp: 97.5 F (36.4 C) SpO2: 97% . Patients home meds are Prior to Admission medications Medication Sig Start Date End Date Taking? Authorizing Provider cephALEXin (KEFLEX) 500 MG capsule Take 500 mg by mouth daily Yes Historical Provider, furosemide (LASIX) 20 MG tablet Take 20 mg by mouth See Admin Instructions Daily Sunday through Sunday Yes Historical Provider, furosemide (LASIX) 20 MG tablet Take 20 mg by mouth See Admin Instructions Three times daily Sunday and Sunday Yes Historical Provider, sucralfate (CARAFATE) 1 GM tablet Take 2 g by mouth Daily with supper Yes Historical Provider, sucralfate (CARAFATE) 1 GM tablet Take 2 g by mouth nightly Yes Historical Provider, losartan (COZAAR) 50 MG tablet Take 50 mg by mouth daily Yes Historical Provider, POTASSIUM CHLORIDE PO Take 20 mEq by mouth 3 times daily Yes Historical Provider, atorvastatin (LIPITOR) 20 MG tablet Take 20 mg by mouth daily Yes Historical Provider, DULoxetine (CYMBALTA) 60 MG extended release capsule Take 60 mg by mouth daily Yes Historical Provider, cyanocobalamin 1000 MCG/ML injection Inject 1,000 mcg into the muscle See Admin Instructions monthly Yes Historical Provider, metFORMIN (GLUCOPHAGE) 500 MG tablet Take 1,000 mg by mouth 2 times daily (with meals) Yes Historical Provider, Semaglutide, 1 MG/DOSE, (OZEMPIC, 1 MG/DOSE,) 2 MG/1.5ML SOPN Inject 2 mg into the skin once a week Yes Historical Provider, Insulin Regular Human (HUMULIN R IJ) Inject 15 Units as directed Daily with lunch Yes Historical Provider, insulin glargine (LANTUS) 100 UNIT/ML injection vial Inject 50 Units into the skin Daily with supper Yes Historical Provider, warfarin (COUMADIN) 10 MG tablet Take 10 mg by mouth Six times weekly Sunday through Sunday Yes Historical Provider, warfarin (COUMADIN) 5 MG tablet Take 5 mg by mouth once a week Sunday Yes Historical Provider, Ascorbic Acid (VITAMIN C) 250 MG tablet Take 500 mg by mouth daily Yes Historical Provider, Cholecalciferol (VITAMIN D3) 125 MCG (5000 UT) TABS Take 1 tablet by mouth daily Yes Historical Provider, Biotin 1000 MCG TABS Take 1,000 mcg by mouth 2 times daily Yes Historical Provider, . Recent Surgical History: None = 0 Assessment Pt is alert and awake. C/o abdominal discomfort and pain. RR elavated due to pain. RR 22-24 Breath Sounds: clear Bronchodilator assessment at level 1 Hyperinflation assessment at level Secretion Management assessment at level [] Bronchodilator Assessment BRONCHODILATOR ASSESSMENT SCORE Score 0 1 2 3 4 5 Breath Sounds [] Patient Baseline [x] No Wheeze good aeration [] Faint, scattered wheezing, good aeration [] Expiratory Wheezing and or moderately diminished [] Insp/Exp wheeze and/or very diminished [] Insp/Exp and/ or marked distress Respiratory Rate [] Patient Baseline [] Less than 20 [] Less than 20 [x] 20-25 [] Greater than 25 [] Greater than 25 Peak flow % of Pred or PB [] NA [] Greater than 90% [] 81-90% [] 71-80% [] Less than or equal to 70% or unable to perform [] Unable due to Respiratory Distress Dyspnea re [] Patient Baseline [x] No SOB [] No SOB [] SOB on exertion [] SOB min activity [] At rest/acute e FEV% Predicted [] NA [] Above 69% [] Unable [] Above 60-69% [] Unable [] Above 50-59% [] Unable [] Above 35-49% [] Unable [] Less than 35% [] Unable [] Hyperinflation Assessment Score 1 2 3 CXR and Breath Sounds [] Clear [] No atelectasis Basilar aeration [] Atelectasis or absent basilar breath sounds Incentive Spirometry Volume (Per IBW) [] Greater than or equal to 15ml/Kg [] less than 15ml/Kg [] less than 15ml/Kg Surgery within last 2 weeks [] None or general [] Abdominal or thoracic surgery [] Abdominal or thoracic Chronic Pulmonary Historyre [] No [] Yes [] Yes [] Secretion Management Assessment Score 1 2 3 Bilateral Breath Sounds [] Occasional Rhonchi [] Scattered Rhonchi [] Course Rhonchi and/or poor aeration Sputum [] Small amount of thin secretions [] Moderate amount of viscous secretions [] Copius, Viscious Yellow/ Secretions CXR as reported by physician [] clear [] Unavailable [] Infiltrates and/or consolidation [] Unavailable [] Mucus Plugging and or lobar consolidation [] Unavailable Cough [] Strong, productive cough [] Weak productive cough [] No cough or weak non-productive cough PAZ PASCUAL, LEAD MATERIAL HANDLER 9:24 AM FEMALE MALE FEV1 Predicted Normal Values FEV1 Predicted Normal Values Age Height in Feet and Inches Age Height in Feet and Inches 4' 11 5' 1 5' 3 5' 5 5' 7 5' 9 5' 11 6' 1 4' 11 5' 1 5' 3 5' 5 5' 7 5' 9 5' 11 6' 1 42 - 45 2.49 2.66 2.84 3.03 3.22 3.42 3.62 3.83 42 - 45 2.82 3.03 3.26 3.49 3.72 3.96 4.22 4.47 46 - 49 2.40 2.57 2.76 2.94 3.14 3.33 3.54 3.75 46 - 49 2.70 2.92 3.14 3.37 3.61 3.85 4.10 4.36 50 - 53 2.31 2.48 2.66 2.85 3.04 3.24 3.45 3.66 50 - 53 2.58 2.80 3.02 3.25 3.49 3.73 3.98 4.24 54 - 57 2.21 2.38 2.57 2.75 2.95 3.14 3.35 3.56 54 - 57 2.46 2.67 2.89 3.12 3.36 3.60 3.85 4.11 58 - 61 2.10 2.28 2.46 2.65 2.84 3.04 3.24 3.45 58 - 61 2.32 2.54 2.76 2.99 3.23 3.47 3.72 3.98 62 - 65 1.99 2.17 2.35 2.54 2.73 2.93 3.13 3.34 62 - 65 2.19 2.40 2.62 2.85 3.09 3.33 3.58 3.84 66 - 69 1.88 2.05 2.23 2.42 2.61 2.81 3.02 3.23 66 - 69 2.04 2.26 2.48 2.71 2.95 3.19 3.44 3.70 70+ 1.82 1.99 2.17 2.36 2.55 2.75 2.95 3.16 70+ 1.97 2.19 2.41 2.64 2.87 3.12 3.37 3.62 Predicted Peak Expiratory Flow Rate Height (in) Female Height (in) Male Age 56 58 60 62 64 66 68 70 Age 20 344 357 372 387 402 417 432 446 60 62 64 66 68 70 72 74 76 25 337 352 366 381 396 411 426 441 25 447 476 505 533 562 591 619 648 677 30 329 344 359 374 389 404 419 434 30 437 466 494 523 552 580 609 638 667 35 322 337 351 366 381 396 411 426 35 426 455 484 512 541 570 598 627 657 40 314 329 344 359 374 389 404 419 40 416 445 473 502 531 559 588 617 647 45 307 322 336 351 366 381 396 411 45 405 434 463 491 520 549 577 606 636 50 299 314 329 344 359 374 389 404 50 395 424 452 481 510 538 567 596 625 55 292 307 321 336 351 366 381 396 55 384 413 442 470 499 528 556 585 615 60 284 299 314 329 344 359 374 389 60 374 403 431 460 489 517 546 575 605 65 277 292 306 321 336 351 366 381 65 363 392 421 449 478 507 535 564 594 70 269 284 299 314 329 344 359 374 70 353 382 410 439 468 496 525 554 583 75 261 274 289 305 319 334 348 364 75 344 372 400 429 458 487 515 544 573 80 253 266 282 296 312 327 342 356 80 335 362 390 419 448 [phone] 562 Images from the original note were not included. Physical Therapy Physical Therapy Cancel Note DATE: 08/28/2020 NAME: Kamran Harley : 1950 Patient not seen this date for Physical Therapy due to: Blood Transfusion: PT will check back as time allows. Images from the original note were not included. [facility] Occupational Therapy Not Seen Note DATE: 08/28/2020 NAME: Kamran Harley : 1950 Patient not seen this date for Occupational Therapy due to: Blood Transfusion: Fresh frozen plasma Next Scheduled Treatment: Ck in pm as able or 08/29 Images from the original note were not included. [facility] Office: [phone] Epifanio Bradley DO, Jesus Poe DO, Lobito Hope DO, Lobo Wallace DO, Ibrahima Green MD, Rupinder Gonzalez MD, Josesito Aquino MD, Harvey Dotson MD, Eduardo Kolb MD, Dori Ag MD, Jose R Izaguirre MD, Trina Kay MD, Andrew Amezquita DO, Yumiko Casanova MD, Brody Pizano DO, Nacho Espino MD, Gelacio Epps DO, Main Ascencio MD, Milton James MD, Roxanne Martin MD, Guilherme Duff MD, Jasmyn Howard, PET CAREGIVER, Zara Ferreira, PET CAREGIVER, Estephanie Renee, PET CAREGIVER, Leana Martinez, CHECKER LOADER, Carlos Abdul, PET CAREGIVER, Nuris Walter PET CAREGIVER, Keely Tomas PET CAREGIVER, Hemal Waite PET CAREGIVER, Richard Burrows, PET CAREGIVER, Tye Castro PA-C, Rita Jacobo DNP, Jeannine Barakat, KITTY, Lila Baxter, PET CAREGIVER, Buffy Mueller CNP, Ingrid Jarrett PET CAREGIVER, Maty Nieves, PET CAREGIVER, Faiza Billings, PET CAREGIVER [facility] IN-PATIENT SERVICE [facility] Progress Note 08/28/2020 7:44 AM Name: Kamran Harley Acct: [id number] Room: [facility]6/0406-01 Day: 1 Admit Date: 08/27/2020 12:46 PM PCP: No primary care provider on file. Code Status: Full Code Subjective: C/C: SOB Interval History Status: not changed. Pt was seen and examined this morning No acute events overnight Unable to provide reliable ROS due to mental status and lethargy Patient thought to have a reaction to FFP this morning due to tachycardia, tachypnea Currently in bed with cannula in place Oriented x 2 when awakened. Denies any history of alcohol or substance abuse Medications: Allergies: Allergies Allergen Reactions Oxytetracycline Penicillins Sulfa Antibiotics Current Meds: Scheduled Meds: enoxaparin 40 mg Subcutaneous Daily sodium chloride flush 5-40 mL Intravenous 2 times per day piperacillin-tazobactam 3,375 mg Intravenous Q8H insulin lispro 0-12 Units Subcutaneous 4x Daily AC & HS sodium chloride flush 5-40 mL Intravenous 2 times per day Continuous Infusions: sodium chloride sodium chloride 75 mL/hr at 08/27/20 1550 dextrose sodium chloride sodium chloride PRN Meds: guaiFENesin, sodium chloride, acetaminophen OR acetaminophen, magnesium sulfate, ondansetron OR ondansetron, polyethylene glycol, potassium chloride OR potassium alternative oral replacement OR potassium chloride, sodium chloride flush, albuterol, glucose, dextrose, glucagon (rDNA), dextrose, sodium chloride flush, sodium chloride, sodium chloride Data: Past Medical History: has a past medical history of Chronic anticoagulation: Coumadin, Coagulopathy (HCC), HLD (hyperlipidemia), HTN (hypertension), Hypomagnesemia, 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 Social History: reports that he has never smoked. He has never used smokeless tobacco. Family History: Family History Problem Relation Age of Onset Diabetes Mother Other Father Vitals: BP 122/63 Pulse 81 Temp 97.8 F (36.6 C) (Cerebral) Resp 28 Ht 6' 3 (1.905 m) Wt (!) 396 lb 13.3 oz (180 kg) SpO2 92% BMI 49.60 kg/m Temp (24hrs), Av.4 F (36.9 C), Min:97.8 F (36.6 C), Max:101 F (38.3 C) Recent Labs 08/27/20 14308/27/20 15508/27/20 15508/27/201928 POCGLU 225* 226* 263* 221* I/O (24Hr): Intake/Output Summary (Last 24 hours) at 08/28/2020 0744 Last data filed at 08/28/2020 0730 Gross per 24 hour Intake 2163 ml Output 1100 ml Net 1063 ml Labs: Hematology: Recent Labs 08/27/20 14208/28/20 0731 WBC 15.1* 10.2 RBC 5.48 4.73 HGB 15.2 12.9* HCT 47.8 42.0 MCV 87.2 88.8 MCH 27.7 27.3 MCHC 31.8 30.7 RDW 15.2* 15.6* PLT 139 127* MPV 10.8 11.2 INR >17.8* -- Chemistry: Recent Labs 08/27/20141908/27/20 15508/27/20 21008/28/20 0303 NA 132* -- -- -- K 4.9 -- -- -- CL 93* -- -- -- CO2 25 -- -- -- GLUCOSE 245* -- -- -- BUN 21 -- -- -- CREATININE 0.82 1.15 -- -- MG 1.5* -- -- -- ANIONGAP 14 -- -- -- LABGLOM >60 >60 -- -- GFRAA >60 -- -- -- CALCIUM 9.5 -- -- -- PROBNP 456* -- -- -- TROPHS 29* -- 26* 27* Recent Labs 08/27/20 14208/27/20 14308/27/20 15508/27/20155608/27/201928 PROT 6.8 -- -- -- -- LABALBU 3.0* -- -- -- -- AST 75* -- -- -- -- ALT 67* -- -- -- -- ALKPHOS 470* -- -- -- -- BILITOT 5.92* -- -- -- -- POCGLU -- 225* 226* 263* 221* ABG: Lab Results Component Value Date POCPH 7.358 08/27/2020 POCPCO2 49.3 08/27/2020 POCPO2 88.4 08/27/2020 POCHCO3 27.7 08/27/2020 NBEA NOT REPORTED 08/27/2020 PBEA 1 08/27/2020 [id number] NOT REPORTED 08/27/2020 [id number] 96 08/27/2020 FIO2 4.0 08/27/2020 Lab Results Component Value Date/Time SPECIAL L HAND TOP 2 ML 08/27/2020 04:42 PM Lab Results Component Value Date/Time CULTURE NO GROWTH 10 HOURS 08/27/2020 04:42 PM Radiology: CT ABDOMEN PELVIS W IV CONTRAST Additional Contrast? None Result Date: 08/27/2020 CTA OF THE CHEST: 1. No pulmonary embolism. 2. Dilation of the main pulmonary artery may signify pulmonary arterial hypertension. 3. No evidence of pneumonia. CT OF THE ABDOMEN AND PELVIS: 1. Edema surrounding the gallbladder, likely indicating acute cholecystitis. While no cholelithiasis is evident by CT, multiple calculi are seen in the common bile duct (choledocholithiasis). 2. Status post colectomy with right lower quadrant ileostomy. 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 No bowel wall thickening or obstruction. 3. Status post left inguinal hernia repair, with evidence of a recurrent shallow fat-containing hernia. No evidence of fat strangulation. CT CHEST PULMONARY EMBOLISM W CONTRAST Result Date: 08/27/2020 CTA OF THE CHEST: 1. No pulmonary embolism. 2. Dilation of the main pulmonary artery may signify pulmonary arterial hypertension. 3. No evidence of pneumonia. CT OF THE ABDOMEN AND PELVIS: 1. Edema surrounding the gallbladder, likely indicating acute cholecystitis. While no cholelithiasis is evident by CT, multiple calculi are seen in the common bile duct (choledocholithiasis). 2. Status post colectomy with right lower quadrant ileostomy. 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 No bowel wall thickening or obstruction. 3. Status post left inguinal hernia repair, with evidence of a recurrent shallow fat-containing hernia. No evidence of fat strangulation. Physical Examination: General appearance: NAD, lethargic Mental Status: oriented to place and person Lungs: clear to auscultation bilaterally, normal effort Heart: regular rate and rhythm, no murmur Abdomen: soft, tender RUQ, nondistended, ostomy in place with stool Extremities: no edema, redness, tenderness in the calves Skin: no gross lesions, rashes, induration Assessment: Hospital Problems Last Modified POA Elevated liver enzymes 08/27/2020 Yes Diabetes mellitus (HCC) 08/27/[address] (HCC) 08/27/2020 Yes Paroxysmal A-fib (HCC) 08/27/2020 Yes Transaminasemia 08/27/2020 Yes Panniculitis 08/27/2020 Yes Supratherapeutic INR 08/27/2020 Yes Hypomagnesemia 08/27/2020 Yes Morbid obesity (HCC) 08/27/2020 Yes HTN (hypertension) 08/27/2020 Yes Coagulopathy (HCC) 08/27/2020 Yes Chronic anticoagulation: Coumadin 08/27/2020 Yes Sepsis (HCC) 08/27/2020 Yes History of DVT (deep vein thrombosis) 08/27/2020 Yes Plan: 1. Sepsis 2. UTI w/ chronic lees 3. Acute respiratory failure 4. Supra therapeutic INR 5. Hypomagnesemia 6. Elevated LFTs 7. Paroxysmal Afib 8. DMII 9. HTN - urine culture pending - blood cultures positive for e coli - ID on board - CT abdomen showed possible acute cholecystitis - surgery consulted - continue IV zosyn at this time - trend lactic acid - acetaminophen prn fever - continue IVF NS @ 75 cc/hr - CT chest negative for PE/pneumonia - repeat PT/INR remains elevated. Vitamin K ordered - accu checks ac/hs with ISS - d/c lovenox given the patients INR being significantly elevated - obtain CT head w/o contrast to rule out bleed given mental status - telemetry - currently requiring 4 L of oxygen - maintain continuous pulse ox - ativan prn Main Ascencio MD 08/28/2020 7:44 AM Urology Progress Note CC: fever Subjective: Kamran Harley is a 70 y.o. male. His/Her current Diet is: ADULT DIET; Regular. Patient tolerating his Lees which was exchanged last week. 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8 F (36.6 C) Oral 126 100 % 08/27/20 1333 130 6' 3 (1.905 m) (!) 396 lb 13.3 oz (180 kg) 08/27/20 1251 (!) 176/89 101 F (38.3 C) 140 (!) 38 No intake or output data in the 24 hours ending 08/27/20 2143 Recent Labs 08/27/20 1420 WBC 15.1* HGB 15.2 HCT 47.8 MCV 87.2 PLT 139 Recent Labs 08/27/20 1420 08/27/20 1557 NA 132* -- K 4.9 -- CL 93* -- CO2 25 -- BUN 21 -- CREATININE 0.82 1.15 Recent Labs 08/27/20 1717 COLORU DARK YELLOW* PHUR 5.0 WBCUA 10 TO 20 RBCUA 2 TO 5 MUCUS NOT REPORTED TRICHOMONAS NOT REPORTED YEAST NOT REPORTED BACTERIA MANY* SPECGRAV 1.023 LEUKOCYTESUR MODERATE* UROBILINOGEN Normal BILIRUBINUR LARGE* Current Facility-Administered Medications Medication Dose Route Frequency Provider Last Rate Last Admin 0.9 % sodium chloride infusion 25 mL Intravenous PRN FEMI Jacques CNP 0.9 % sodium chloride infusion Intravenous Continuous FEMI Jacques CNP 75 mL/hr at 08/27/20 1550 New Bag at 08/27/20 1550 acetaminophen (TYLENOL) tablet 650 mg 650 mg Oral Q6H PRN FEMI Jacques CNP Or acetaminophen (TYLENOL) suppository 650 mg 650 mg Rectal Q6H PRN FEMI Jacques CNP enoxaparin (LOVENOX) injection 40 mg 40 mg Subcutaneous Daily FEMI Jacques CNP magnesium sulfate 1000 mg in dextrose 5% 100 mL IVPB 1,000 mg Intravenous PRN FEMI Jacques CNP ondansetron (ZOFRAN-ODT) disintegrating tablet 4 mg 4 mg Oral Q8H PRN FEMI Jacques CNP Or ondansetron (ZOFRAN) injection 4 mg 4 mg Intravenous Q6H PRN FEMI Jacques CNP polyethylene glycol (GLYCOLAX) packet 17 g 17 g Oral Daily PRN FEMI Jacques CNP potassium chloride (KLOR-CON M) extended release tablet 40 mEq 40 mEq Oral PRN FEMI Jacques CNP Or potassium bicarb-citric acid (EFFER-K) effervescent tablet 40 mEq 40 mEq Oral PRN FEMI Jacques CNP Or potassium chloride 10 mEq/100 mL IVPB (Peripheral Line) 10 mEq Intravenous PRN FEMI Jacques CNP sodium chloride flush 0.9 % injection 5-40 mL 5-40 mL Intravenous 2 times per day FEMI Jacques CNP sodium chloride flush 0.9 % injection 10 mL 10 mL Intravenous PRN FEMI Jacques CNP albuterol (PROVENTIL) nebulizer solution 2.5 mg 2.5 mg Nebulization As Directed RT PRN FEMI Jacques CNP vancomycin (VANCOCIN) 1500 mg in dextrose 5 % 250 mL IVPB 1,500 mg Intravenous Once Josesito Aquino MD 166.7 mL/hr at 08/27/202101 1,500 mg at 08/27/202101 piperacillin-tazobactam (ZOSYN) 3,375 mg in dextrose 5 % 50 mL IVPB extended infusion (mini-bag) 3,375 mg Intravenous Q8H Josesito Aquino MD Stopped at 08/27/20 1950 insulin lispro (HUMALOG) injection vial 0-12 Units 0-12 Units Subcutaneous 4x Daily AC & HS Jesus Poe, DO 4 Units at 08/27/202109 glucose (GLUTOSE) 40 % oral gel 15 g 15 g Oral PRN Jesus Poe, DO dextrose 50 % IV solution 12.5 g Intravenous PRN Jesus Poe, DO glucagon (rDNA) injection 1 mg 1 mg Intramuscular PRN Jesus S Lui, DO dextrose 5 % solution 100 mL/hr Intravenous PRN Jesus Poe, DO sodium chloride flush 0.9 % injection 5-40 mL 5-40 mL Intravenous 2 times per day Jesus Poe, DO sodium chloride flush 0.9 % injection 5-40 mL 5-40 mL Intravenous PRN Jesus Poe, DO 0.9 % sodium chloride infusion 25 mL Intravenous PRN Jesus Poe, DO 0.9 % sodium chloride infusion Intravenous PRN Maty Nieves APRN - PROJECT DEVELOPMENT COORDINATOR Additional Lab/culture results: Physical Exam: NAD Awake Peripheral pulses palpable Regular rate Respirations nonlabored, symmetric chest rise bilaterally Soft, NT, ND, productive stool from stoma Lees draining yellow urine No calf ttp bilaterally EPC cuffs on and functioning billaterally Interval Imaging Findings: CT abd/pel reviewed from 08/27/20 - no hydronephrosis. Kidneys without mass or lesion. -no air or evidence of infection in organs. The images were reviewed personally by me as well as the radiology report. Impression: 70 yo male with supratherapeutic INR, SOB, DM problem list - Chronic lees catheter UTI Hematuria - resolved Plan: Per pt changed lees 5 days ago - no need to change Urine is dark yellow - INR 17 now 12, reversal per primary, on coumadin at home for afib. Follow up UCx from 08/27/2020 pending Follow up BCx x3 from 08/27/2020 GNR in 2/3 Consider General surgery/GI consult given concern for cholecystitis, which could be a potential source of bacteremia. On Zosyn and Vancomycin per primary team. No evidence of soft tissue infeciton on CT or exam to the system. Please call with questions. Follow up with Dr Dick in 3 weeks for Lees exchange. Brendan Pacheco MD, MD Urology Resident, PGY-4 9:43 PM 08/27/2020 Images from the original note were not included. [facility] Nurse Consult Note NAME: Kamran Harley AGE: 70 y.o. GENDER: male : 1950 TODAY'S DATE: 08/27/2020 Subjective Reason for WOC Nurse Evaluation and Assessment: abdominal pannus wound Ileostomy to RLQ; independent in care Evidence of lower extremity venous disease with hemosiderin discoloration; no wounds observed but noted excoriations. Kamran Harley is a 70 y.o. male referred by: [x] Physician [] Nursing [] Other: PAST MEDICAL HISTORY Diagnosis Date Chronic anticoagulation: Coumadin Coagulopathy (HCC) HLD (hyperlipidemia) HTN (hypertension) Hypomagnesemia 08/27/[address] (HCC) Morbid obesity (HCC) [place] syndrome Paroxysmal atrial fibrillation (HCC) Type 2 diabetes mellitus (HCC) PAST SURGICAL HISTORY Past Surgical History: Procedure Laterality Date COLON SURGERY Subtotal colectomy GASTROSTOMY TUBE PLACEMENT HERNIA REPAIR ILEOSTOMY OR JEJUNOSTOMY FAMILY HISTORY Family History Problem Relation Age of Onset Diabetes Mother Other Father SOCIAL HISTORY Social History Tobacco Use Smoking status: Never Smoker Smokeless tobacco: Never Used Substance Use Topics Alcohol use: Not on file Drug use: Not on file ALLERGIES Allergies Allergen Reactions Oxytetracycline Penicillins Sulfa Antibiotics MEDICATIONS No current facility-administered medications on file prior to encounter. Current Outpatient Medications on File Prior to Encounter Medication Sig Dispense Refill cephALEXin (KEFLEX) 500 MG capsule Take 500 mg by mouth daily furosemide (LASIX) 20 MG tablet Take 20 mg by mouth See Admin Instructions Daily Sunday through Sunday furosemide (LASIX) 20 MG tablet Take 20 mg by mouth See Admin Instructions Three times daily Sunday and Sunday sucralfate (CARAFATE) 1 GM tablet Take 2 g by mouth Daily with supper sucralfate (CARAFATE) 1 GM tablet Take 2 g by mouth nightly losartan (COZAAR) 50 MG tablet Take 50 mg by mouth daily POTASSIUM CHLORIDE PO Take 20 mEq by mouth 3 times daily atorvastatin (LIPITOR) 20 MG tablet Take 20 mg by mouth daily DULoxetine (CYMBALTA) 60 MG extended release capsule Take 60 mg by mouth daily cyanocobalamin 1000 MCG/ML injection Inject 1,000 mcg into the muscle See Admin Instructions monthly metFORMIN (GLUCOPHAGE) 500 MG tablet Take 1,000 mg by mouth 2 times daily (with meals) Semaglutide, 1 MG/DOSE, (OZEMPIC, 1 MG/DOSE,) 2 MG/1.5ML SOPN Inject 2 mg into the skin once a week Insulin Regular Human (HUMULIN R IJ) Inject 15 Units as directed Daily with lunch insulin glargine (LANTUS) 100 UNIT/ML injection vial Inject 50 Units into the skin Daily with supper warfarin (COUMADIN) 10 MG tablet Take 10 mg by mouth Six times weekly Sunday through Sunday warfarin (COUMADIN) 5 MG tablet Take 5 mg by mouth once a week Sunday Ascorbic Acid (VITAMIN C) 250 MG tablet Take 500 mg by mouth daily Cholecalciferol (VITAMIN D3) 125 MCG (5000 UT) TABS Take 1 tablet by mouth daily Biotin 1000 MCG TABS Take 1,000 mcg by mouth 2 times daily Objective BP (!) 152/59 Pulse 108 Temp 98.2 F (36.8 C) (Oral) Resp 18 Ht 6' 3 (1.905 m) Wt (!) 396 lb 13.3 oz (180 kg) SpO2 99% BMI 49.60 kg/m LABS: WBC: Lab Results Component Value Date WBC 15.1 08/27/2020 H/H: Lab Results Component Value Date HGB 15.2 08/27/2020 HCT 47.8 08/27/2020 PTT: No results found for: APTT, PTT[APTT} PT/INR: Lab Results Component Value Date PROTIME >150.0 08/27/2020 INR >17.8 08/27/2020 HgBA1c: No results found for: LABA1C Assessment Robinson Risk Score: Robinson Scale Score: 18 Patient Active Problem List Diagnosis Code Elevated liver enzymes R74.8 Diabetes mellitus (HCC) E11.[address] (HCC) Z93.2 Paroxysmal A-fib (HCC) I48.0 Transaminasemia R74.01 Panniculitis M79.3 Supratherapeutic INR R79.1 Hypomagnesemia E83.42 Morbid obesity (HCC) E66.01 HTN (hypertension) I10 Coagulopathy (HCC) D68.9 Chronic anticoagulation: Coumadin Z79.01 Sepsis (HCC) A41.9 History of DVT (deep vein thrombosis) Z86.718 Measurements: 08/27/20 1823 Wound 08/27/20 Abdomen Mid cluster of 3 Date First Assessed/Time First Assessed: 08/27/201822 Present on Hospital Admission: Yes Primary Wound Type: Soft Tissue Necrosis Location: Abdomen Wound Location Orientation: Mid Wound Description (Comments): cluster of 3 Wound Image Wound Etiology Traumatic (pressure related to belt buckle) Dressing Status New dressing applied Wound Cleansed Soap and water;Cleansed with saline Dressing/Treatment Alginate with Ag;Silicone border;Foam Dressing Change Due 08/29/20 Wound Length (cm) 3.5 cm Wound Width (cm) 8 cm Wound Surface Area (cm^2) 28 cm^2 Wound Assessment Devitalized tissue;Buhler/red;Fibrinous;Purple/maroon Drainage Amount Small Drainage Description Yellow (reported by RN) Wound Thickness Description not for Pressure Injury Partial thickness Response to treatment: Well tolerated by patient. Plan Plan of Care: Wound 08/27/20 Abdomen Mid cluster of 3-Dressing/Treatment: (P) Alginate with Ag, Silicone border, Foam MID-ABDOMEN: Cleanse with saline. Place strip of OpticellAG to wounds and cover with 4x8 silicone border Mepilex foam dressing. Change every 48 hours unless excessive drainage. Specialty Bed Required : Yes [] Low Air Loss [x] Pressure Redistribution [place] with [employer] in use; may benefit from bariatric bed if he has difficulty with repositioning. 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 Continuity of Care Form Patient Name: Kamran Harley : 1950 Admit date: 08/27/2020 Discharge date: 09/06/20 Code Status Order: Full Code Advance Directives: Advance Care Flowsheet Documentation Date/Time Healthcare Directive Type of Healthcare Directive Copy in Chart Healthcare Agent Appointed Healthcare Agent's Name Healthcare Agent's Phone Number 08/27/20 1816 No, patient does not have an advance directive for healthcare treatment -- -- -- -- -- Admitting Physician: No admitting provider for patient encounter. PCP: Jesus Chopra DO Discharging Nurse: Fernando Reeves RN Discharging Hospital Unit/Room#: 0419/0419-02 Discharging Unit Phone Number: [phone] Emergency Contact: Extended Emergency Contact Information Primary Emergency Contact: Kate Martinez Mobile Relation: Child Photographic Process Worker needed? No Past Surgical History: Past Surgical History: Procedure Laterality Date COLON SURGERY Subtotal colectomy ERCP N/A 08/28/2020 ERCP DILATION BALLOON performed by Alexis Ramon MD at [facility] OR ERCP 08/28/2020 ERCP STENT INSERTION performed by Alexis Ramon MD at [facility] OR ERCP 08/28/2020 ERCP SPHINCTER/PAPILLOTOMY performed by Alexis Ramon MD at [facility] OR GASTROSTOMY TUBE PLACEMENT HERNIA REPAIR ILEOSTOMY OR JEJUNOSTOMY Immunization History: There is no immunization history on file for this patient. Active Problems: Patient Active Problem List Diagnosis Code Elevated liver enzymes R74.8 Diabetes mellitus (HCC) E11.[address] ([facility]) Z93.2 Paroxysmal A-fib (HCC) I48.0 Transaminasemia R74.01 Panniculitis M79.3 Supratherapeutic INR R79.1 Hypomagnesemia E83.42 Class 3 severe obesity due to excess calories with serious comorbidity and body mass index (BMI) of 50.0 to 59.9 in adult ([facility]) E66.01, Z68.43 HTN (hypertension) I10 Coagulopathy ([facility]) D68.9 Chronic anticoagulation: Coumadin Z79.01 Sepsis ([facility]) A41.9 History of DVT (deep vein thrombosis) Z86.718 Acute encephalopathy G93.40 Acute cholangitis K83.09 Complicated UTI (urinary tract infection) N39.0 Gram negative septicemia ([facility]) A41.50 Ascending cholangitis K83.09 Morbid obesity ([facility]) E66.01 Isolation/Infection: Isolation Contact Patient Infection Status Infection Onset Added Last Indicated Last Indicated By Review Planned Expiration Resolved Resolved By MRSA 08/28/20 08/29/20 08/28/20 MRSA DNA Probe, Nasal ESBL (Extended Spectrum Beta Lactamase) 08/27/20 08/29/20 08/27/20 Culture, Urine Klebsiella Blood & Urine 08/2020 MDRO (multi-drug resistant organism) 08/27/20 08/29/20 08/27/20 Culture, Urine Klebsiella Blood & Urine 08/2020 Nurse Assessment: Last Vital Signs: BP (!) 167/80 Pulse 66 Temp 97.9 F (36.6 C) (Oral) Resp 26 Ht 6' 3 (1.905 m) Wt (!) 423 lb 3.2 oz (192 kg) SpO2 99% BMI 52.90 kg/m Last documented pain score (0-10 scale): Pain Level: 6 Last Weight: Wt Readings from Last 1 Encounters: 09/03/20 (!) 423 lb 3.2 oz (192 kg) Mental Status: oriented, thought processes intact and able to concentrate and follow conversation IV Access: - None Nursing Mobility/ADLs: Walking Dependent Transfer Dependent Bathing Assisted Dressing Assisted Toileting Assisted Feeding Independent Premium Card Cancellation Clerk Independent Med Delivery whole Wound Care Documentation and Therapy: Wound 08/27/20 Abdomen Mid cluster of 3 (Active) Wound Image 08/27/201822 Wound Etiology Traumatic 09/03/20 08 Dressing Status Clean;Dry;Intact 09/03/20 08 Wound Cleansed Irrigated with saline 09/03/20 08 Dressing/Treatment Alginate with Ag;Foam 09/03/20 08 Dressing Change Due 09/03/20 09/03/20 08 Wound Length (cm) 3.5 cm 08/27/201822 Wound Width (cm) 8 cm 08/27/201822 Wound Surface Area (cm^2) 28 cm^2 08/27/20 182 Wound Assessment Dry;Other (Comment) 09/03/20 08 Drainage Amount None 09/03/20 08 Drainage Description Yellow 08/31/20 0400 Odor None 09/03/20 08 Maria T-wound Assessment Fragile;Intact 09/01/20 0400 Wound Thickness Description not for Pressure Injury Partial thickness 08/30/20 1600 Number of days: 6 Elimination: Continence: Bowel: ileostomy Bladder: chronic lees Urinary Catheter: Insertion Date: chronic Colostomy/Ileostomy/Ileal Conduit: Yes Ileostomy Ileostomy RLQ-Stomal Appliance: 1 piece Ileostomy Ileostomy RLQ-Stoma Assessment: Buhler, Moist, Red Ileostomy Ileostomy RLQ-Mucocutaneous Junction: Intact Ileostomy Ileostomy RLQ-Peristomal Assessment: Intact Ileostomy Ileostomy RLQ-Stool Appearance: Loose Ileostomy Ileostomy RLQ-Stool Color: Brown Ileostomy Ileostomy RLQ-Stool Amount: Small Ileostomy Ileostomy RLQ-Output (mL): 100 ml Date of Last BM: 09/06 Intake/Output Summary (Last 24 hours) at 09/03/2020 1419 Last data filed at 09/03/2020 0608 Gross per 24 hour Intake Output 1300 ml Net -1300 ml I/O last 3 completed shifts: In: 818.8 [P.O.:720; IV Piggyback:98.8] Out: 4450 [Urine:4250; Stool:200] Safety Concerns: At Risk for Falls and bears no weight 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 Nutrition Therapy: Current Nutrition Therapy: - Oral Diet: Carb Control 4 carbs/meal (1800kcals/day) Routes of Feeding: Oral Liquids: No Restrictions Daily Fluid Restriction: no Last Modified Barium Swallow with Video (Video Swallowing Test): not done Treatments at the Time of Hospital Discharge: Respiratory Treatments: needs encouragement to wear bipap at night Oxygen Therapy: bipap at night/ 2liters nasal cannula when he refuses bipap Ventilator: - BiPAP IPAP: 12 cmH20, CPAP/EPAP: 5 cmH2O only when sleeping Rehab Therapies: Physical Therapy and Occupational Therapy Weight Bearing Status/Restrictions: No weight bearing restirctions Other Medical Equipment (for information only, NOT a DME order): wheelchair and hospital bed Other Treatments: [facility] facility Patient's personal belongings (please select all that are sent with patient): laptop,cell phone RN SIGNATURE: CASE MANAGEMENT/SOCIAL WORK SECTION Inpatient Status Date: 08/27/2020 Readmission Risk Assessment Score: Readmission Risk Risk of Unplanned Readmission: 14 Discharging to Facility/ Agency Name: [facility] Details FAX [address] [facility] [address] Dialysis Facility (if applicable) Name: Address: Dialysis Schedule: Phone: Fax: Case Operator/[employer]nov[employer] Paraprofessional signature: PHYSICIAN SECTION Prognosis: Fair Condition at Discharge: Stable Rehab Potential (if transferring to Rehab): Fair Recommended Labs or Other Treatments After Discharge: -BiPAP at night time - Home dose of Lasix -Continue supplemental oxygen -Continue antibiotic, Meropenem till 09/06 -Per GI warfarin to be held for 7 days, to be restarted 09/04 -Continue blood pressure and glycemic control -Continue other chronic meds for his chronic conditions.. -Check electrolytes and replace as needed. -DVT and GI prophylaxis -Discussed with the patient -Placed midline for IV abx -PT/OT -DC planning - Needs sleep study as OP , [facility] Physician Certification: I certify the above information and transfer of Kamran Harley is necessary for the continuing treatment of the diagnosis listed and that he requires [facility] Facility for greater 30 days. Update Admission H&P: Changes in H&P as follows - as in DC summary PHYSICIAN SIGNATURE: documented in this encounter [employer] Phone: Evaluation note Note Date & Type Note Facility Evaluation note Diagnosis Gram negative septicemia (HCC)- Primary Septicemia due to gram-negative organism, unspecified Morbid obesity (HCC) Morbid obesity Obstructive sleep apnea Obstructive sleep apnea (adult) (pediatric) Elevated liver enzymes Nonspecific elevation of levels of transaminase or lactic acid dehydrogenase (LDH) Transaminasemia Nonspecific elevation of levels of transaminase or lactic acid dehydrogenase (LDH) Panniculitis Panniculitis, unspecified site Supratherapeutic INR Abnormal coagulation profile Hypomagnesemia Disorders of magnesium metabolism Diabetes mellitus (HCC) Type II or unspecified type diabetes mellitus without mention of complication, not stated as uncontrolled Paroxysmal A-fib (HCC) Atrial fibrillation Class 3 severe obesity due to excess calories with serious comorbidity and body mass index (BMI) of 50.0 to 59.9 in adult (HCC) HTN (hypertension) Unspecified essential hypertension Coagulopathy (HCC) Other and unspecified coagulation defects Chronic anticoagulation: Coumadin Encounter for long-term (current) use of anticoagulants Sepsis (HCC) Ileostomy in place (HCC) Ileostomy status History of DVT (deep vein thrombosis) Personal history of venous thrombosis and embolism Acute encephalopathy Encephalopathy, unspecified Acute cholangitis Cholangitis Complicated UTI (urinary tract infection) Urinary tract infection, site not specified Ascending cholangitis Cholangitis Acute respiratory failure with hypoxia (HCC) Acute respiratory failure documented in this encounter [employer] Phone: Reason for Referral Status Reason Specialty Diagnoses / Procedures Referred By Contact Referred To Contact [facility] Diagnoses Morbid obesity (HCC) Obstructive sleep apnea Procedures Sleep Study with PAP Titration Mary Kay MD [address] [place] [address] Advance Directives No Advanced Directives Records FoundLatest Code Status on File Code Status Date Activated Date Inactivated Comments Full Code 08/27/2020 12:53 PM Healthcare Agents on File Name Relationship Healthcare Agent Relationship Communication Kate Amrtinez Child Primary Decision Maker Latest Code Status on File Code Status Date Activated Date Inactivated Comments Full Code 08/27/2020 12:53 PM 09/06/2020 11:09 PM Healthcare Agents on File Name Relationship Healthcare Agent Relationship Communication Kate Nova Primary Decision Maker Summary Purpose Family History No Family History Records FoundNo Family History Records FoundNo Family History Records FoundNo Family History Records FoundNo Family History Records Found Additional Source Comments Reason for Visit (unrecogniz ed section and content) Status Reason Specialty Diagnoses / Procedures Referre d By Contact Referred To Contact Diagnoses Elevated liver enzymes elevated liver enzymes, Dyspnea Stvz 4b Stepdown [address] [place] [address] [facility] Status Reason Specialty Diagnoses / Procedures Referre d By Contact Referred To Contact Diagnoses Choledocholithiasis CHOLEDOCHOLITHIASIS Procedures RI ERCP REMOVE FOREIGN BODY/STENT BILIARY/PANC DUCT ERCP STENT REMOVAL Alexis Ramon MD [address] [address] [facility] Ordered Prescriptions (unrec ognized section and content) Prescription Sig Dispensed Refills Start Date End Da te enoxaparin (LOVENOX) 120 MG/0.8ML injection Inject 1.28 mLs into the skin every 12 hours for 4 days 10.24 mL 0 09/06/2020 09/10/2020 meropenem (MERREM) infusion Infuse 1,000 mg intravenously every 8 hours for 5 days Compound per protocol. 1 each 0 09/01/2020 09/06/2020 Scheduled Active and Recently Administ ered Medications (unrecognized section and content) Medication Order 09/04/2020 09/05/2020 09/06/2020 enoxaparin (LOVENOX) injection 40 mg 40 mg, Subcutaneous, 2 TIMES DAILY, First dose (after last modification) on 08/30/20 at 2100 0935 (Given - Provider: Jonelle Hager RN)2043 (Given - Provider: Paulette Montenegro RN) 1108 (Given - Provider: Fernando Bennett RN)2150 (Given - Provider: Gail Barrios RN) 0822 (Given - Provider: Fernando Bennett RN)2053 (Given - Provider: Erica Sosa, REGINO) furosemide (LASIX) injection 40 mg (COMPLETED) 40 mg, Intravenous, ONCE, On 09/04/20 at 1515, For 1 dose 1546 (Given - Provider: Jonelle Hager, REGINO) furosemide (LASIX) tablet 40 mg (COMPLETED) 40 mg, Oral, ONCE, On 09/05/20 at 1515, For 1 dose 1650 (Given - Provider: Fernando Bennett RN) insulin glargine (LANTUS) injection vial 20 Units (COMPLETED) 20 Units, Subcutaneous, ONCE, On 09/05/20 at 1500, For 1 dose 1646 (Given - Provider: Fernando Bennett RN) insulin glargine (LANTUS) injection vial 30 Units (CANCELED) 30 Units, Subcutaneous, 2 TIMES DAILY, First dose (after last modification) on 09/04/20 at 1030 1137 (Given - Provider: Jonelle Hager RN)2046 (Given - Provider: Paulette Montenegro RN) 0855 (Given - Provider: Fernando Bennett RN) insulin glargine (LANTUS) injection vial 50 Units 50 Units, Subcutaneous, 2 TIMES DAILY, First dose (after last modification) on 09/05/20 at 2100 2152 (Given - Provider: Gail Barrios RN) 0830 (Given - Provider: Fernando Bennett RN)2053 (Given - Provider: Erica Sosa, REGINO) insulin lispro (HUMALOG) injection vial 0-18 Units 0-18 Units, Subcutaneous, 3 TIMES DAILY WITH MEALS, First dose on Kelly 09/02/20 at 1700, High Dose Corrective Algorithm Glucose: Dose: 70-139 No Insulin 140-199 3 Units 200-249 6 Units 250-299 9 Units 300-349 12 Units 350-400 15 Units Over 400 18 Units 0931 (Given - Provider: Jonelle Hager RN)1137 (Given - Provider: Jonelle Hager RN)1813 (Given - Provider: Jonelle Hager RN) 0854 (Given - Provider: Fernando Bennett RN)1229 (Given - Provider: Fernando Bennett RN)1650 (Given - Provider: Fernando eBnnett RN) 1019 (Not Given - Provider: Fernando Bennett RN - Reason: Contraindicated)1226 (Given - Provider: Fernando Bennett RN)1711 (Given - Provider: Fernando Bennett, RN) insulin lispro (HUMALOG) injection vial 0-9 Units 0-9 Units, Subcutaneous, NIGHTLY, First dose on Kelly 09/02/20 at 2100, If continuous tube feedings/TPN/NPO, give correction dose based on result, no reduction in dose. If eating or bolus tube feeding: High Dose Corrective Algorithm Glucose: Dose: 70-139 No Insulin 140-199 2 Units 200-249 3 Units 250-299 5 Units 300-349 6 Units 350-400 7 Units Over 400 9 Units 2044 (Given - Provider: Paulette Montenegro RN) 2150 (Given - Provider: Gail Barrios, REGINO) 2053 (Given - Provider: Erica Sosa RN) meropenem (MERREM) 1,000 mg in sodium chloride 0.9 % 100 mL IVPB (mini-bag) 1,000 mg, Intravenous, at 33.3 mL/hr, Administer over 180 Minutes, EVERY 8 HOURS, First dose on [facility] 08/28/20 at 1500, For 29 doses 0135 (Stopped - Provider: Paulette Montenegro RN)0628 (New Bag - Provider: Paulette Montenegro RN)0953 (Stopped - Provider: Jonelle Hager, REGINO)1547 (New Bag - Provider: Jonelle Hager, REGINO)1923 (Stopped - Provider: Jonelle Hager, RN)2232 (New Bag - Provider: Paulette Montenegro RN) 0149 (Stopped - Provider: Paulette Montenegro RN)0634 (New Bag - Provider: Paulette Montenegro RN)1107 (Stopped - Provider: Fernando Bennett RN)1644 (New Bag - Provider: Fernando Bennett, REGINO)1944 (Stopped - Provider: Gail Barrios, REGINO)2303 (New Bag - Provider: Gail Barrios, REGINO) 0203 (Stopped - Provider: Gail Barrios RN)0822 (New Bag - Provider: Fernando Bennett RN)1220 (Stopped - Provider: Fernando Bennett RN)1529 (New Bag - Provider: Fernando Bennett RN)1900 (Stopped - Provider: Fernando Bennett RN)2300 (Due) miconazole (MICOTIN) 2 % powder Topical, 2 TIMES DAILY, First dose on Sun08/28/20 at 0900, Apply to skin folds/under breasts. Substituted for Nystatin (MICOSTATIN) powder. 0936 (Given - Provider: Jonelle Hager RN)204 (Given - Provider: Paulette Montenegro RN) 1108 (Given - Provider: Fernando Bennett RN)2099 (Given - Provider: Gail Barrios RN) 0828 (Given - Provider: Fernando Bennett RN)2102 (Not Given - Provider: Erica Sosa RN - Reason: Other) sodium chloride flush 0.9 % injection 5-40 mL 5-40 mL, Intravenous, EVERY 12 HOURS SCHEDULED (2 times per day), First dose on Sun08/27/20 at 2100, For Line Patency: Peripheral IV = 5 mL; Midline or Central Line = 10 mL/lumen. If following IV push medication, administer flush at same rate as the IV push. Flush volume is determined by type of infusion therapy being given. For non-viscous solutions use: Peripheral IV = 5 mL Midline or Central Line = 10 mL/lumen For viscous solutions (i.e. blood components, parenteral nutrition, contrast media, or after obtaining blood sample) use: Peripheral IV = 10 mL Midline or Central Line = 20 mL/lumen 0948 (Given - Provider: Jonelle Hager RN)204 (Not Given - Provider: Paulette Montenegro RN - Reason: IV Fluid Infusing) 0902 (Not Given - Provider: Fernando Bennett RN - Reason: IV Fluid Infusing)2099 (Given - Provider: Gail Barrios RN) 08 (Given - Provider: Fernando Bennett RN)210 (Not Given - Provider: Erica Sosa RN - Reason: IV Fluid Infusing) warfarin (COUMADIN) daily dosing (placeholder) This patient is currently receiving daily warfarin. Please check INR's and signs/symptoms of bleeding and bruising as appropriate. 1554 (Not Given - Provider: Jonelle Hager RN - Reason: Other - Comment: place weir) warfarin (COUMADIN) tablet 10 mg (COMPLETED) 10 mg, Oral, ONCE Warfarin, On 09/04/20 at 1800, For 1 dose, Review INR prior to administration. Hazardous med- See facility policy for handling/disposal 1813 (Given - Provider: Jonelle Hager RN) warfarin (COUMADIN) tablet 10 mg (COMPLETED) 10 mg, Oral, ONCE Warfarin, On 09/05/20 at 1800, For 1 dose, Review INR prior to administration. Hazardous med- See facility policy for handling/disposal 1652 (Given - Provider: Fernando Bennett RN) warfarin (COUMADIN) tablet 15 mg (COMPLETED) 15 mg, Oral, ONCE Warfarin, On 09/06/20 at 1800, For 1 dose, Review INR prior to administration. Hold for INR greater than 3.5 and contact physician. Hazardous med- See facility policy for handling/disposal 1715 (Given - Provider: Fernando Bennett RN) PRN Medication Order 09/04/2020 09/05/2020 09/06/2020 0.9 % sodium chloride infusion Intravenous, at 240 mL/hr, Administer over 10 Minutes, PRN, blood administration, Starting on 08/28/20 at 1826, For 1 dose, For use in priming line prior to transfusion (prime via gravity) and flush line post transfusion ONLY. Discontinue once line has been cleared of remaining blood product. acetaminophen (TYLENOL) suppository 650 mg(Linked Group 1) 650 mg, Rectal, EVERY 6 HOURS PRN, Pain Mild (1-3), Fever, For temp greater than 100.4 F (38 C), Starting on Sun08/27/20 at 1253, Administer if oral route cannot be used. acetaminophen (TYLENOL) tablet 650 mg(Linked Group 1) 650 mg, Oral, EVERY 6 HOURS PRN, Pain Mild (1-3), Fever, For temp greater than 100.4 F (38 C), Starting on Sun08/27/20 at 1253, Maximum dose of acetaminophen is 4000 mg from all sources in 24 hours. dextrose 5 % solution 100 mL/hr, Intravenous, at 100 mL/hr, PRN, Low blood sugar, Starting on Sun08/27/20 at 1440, Start infusion following administration of dextrose 50% or glucagon. dextrose 50 % IV solution 12.5 g, Intravenous, PRN, Low blood sugar, Blood glucose less than 70 mg/dL and patient NOT ALERT or NPO., Starting on Sun08/27/20 at 1440, If patient does not respond within 5 minutes, repeat dose x1. Start D5W at 100 mL/hour until ordering provider can be reached. Repeat blood glucose in 15 minutes. If blood glucose is less than 70 mg/dL, repeat treatment and recheck blood glucose in 15 minutes x2. If using Glucostabilizer, dose as instructed per system. diphenhydrAMINE (BENADRYL) injection 25 mg 25 mg, Intravenous, EVERY 6 HOURS PRN, Itching, Sleep, Other, allergic reaciton, Starting on Sun09/03/20 at 0222 glucagon (rDNA) injection 1 mg 1 mg, Intramuscular, PRN, Low blood sugar, Blood glucose less than 70 mg/dL and patient NOT ALERT or NPO and does not have IV access., Starting on Sun08/27/20 at 1440, After administration, attempt intravenous access and start D5W at 100 mL/hr. Repeat blood glucose in 15 minutes x2 and notify provider. glucose (GLUTOSE) 40 % oral gel 15 g 15 g, Oral, PRN, Low blood sugar, Starting on Sun08/27/20 at 1440, If blood glucose less than 50 mg/dL and patient ALERT and TOLERATING PO, give 2 tubes glucose gel. If blood glucose less than 70 mg/dL and patient ALERT and TOLERATING PO, give 1 tube glucose gel. Repeat blood glucose in 15 minutes. If blood glucose is less than 70 mg/dL, repeat treatment and recheck blood glucose in 15 minutes x2 and notify provider. guaiFENesin (ROBITUSSIN) 100 MG/5ML oral solution 200 mg 200 mg, Oral, EVERY 4 HOURS PRN, Cough, Starting on 08/28/20 at 0632 HYDROcodone-acetaminophen (NORCO) 5-325 MG per tablet 1 tablet 1 tablet, Oral, EVERY 4 HOURS PRN, Pain Moderate (4-6), Starting on 09/04/20 at 0510, Maximum dose of acetaminophen is 4000 mg from all sources in 24 hours. 0540 (Given - Provider: Paulette Montenegro, RN)1550 (Given - Provider: Jonelle Hager, REGINO) 0436 (Given - Provider: Paulette Montenegro RN)1106 (Given - Provider: Fernando Bennett, REGINO)1825 (Given - Provider: Fernando Bennett, RN)2241 (Given - Provider: Gail Barrios, RN) 1221 (Given - Provider: Fernando Bennett, REGINO)1711 (Given - Provider: Fernando Bennett RN) LORazepam (ATIVAN) injection 0.5 mg 0.5 mg, Intravenous, EVERY 6 HOURS PRN, Anxiety, Withdrawal, Starting on Sun08/28/20 at 0955 magnesium sulfate 1000 mg in dextrose 5% 100 mL IVPB 1,000 mg, Intravenous, at 100 mL/hr, Administer over 1 Hours, PRN, Other, Per IV Magnesium Replacement Protocol, Starting on Sun08/27/20 at 1253, Mg Lab Replacement Action 1.4-1.6 1 gram IVPB x 2 doses (2 gram Total) 1.0-1.3 1 gram IVPB x 4 doses (4 gram Total) <1.0 CALL PHYSICIAN and 1 gram IVPB x 4 doses (4 gram Total) Infuse at 1 gram/hr Repeat Mag level next AM Protocol not for use in Patients with CrCl<30ml/min ondansetron (ZOFRAN) injection 4 mg(Linked Group 2) 4 mg, Intravenous, EVERY 6 HOURS PRN, Nausea, Vomiting, Starting on Sun08/27/20 at 1253, Administer if oral route cannot be used. ondansetron (ZOFRAN-ODT) disintegrating tablet 4 mg(Linked Group 2) 4 mg, Oral, EVERY 8 HOURS PRN, Nausea, Vomiting, Starting on Sun08/27/20 at 1253 polyethylene glycol (GLYCOLAX) packet 17 g 17 g, Oral, DAILY PRN, Constipation, Starting on Sun08/27/20 at 1253, First line therapy for constipation potassium bicarb-citric acid (EFFER-K) effervescent tablet 40 mEq(Linked Group 3) 40 mEq, Oral, PRN, Per Potassium Replacement Protocol, Starting on Sun08/27/20 at 1253, Administer as alternative if patient unable to tolerate oral tablet. K Lab Replacement Action 3.1 to 3.5 40 mEq ORAL x 1 Under 3.1 Refer to IV replacement protocol Recheck K level in AM. Protocol not for use in patients with CrCl less than 30 mL/min. Do not chew or crush. Dissolve flavored tablets completely in 3 to 4 ounces of cold water; unflavored tablets may be dissolved in 3 to 4 ounces of cold juice. Patient to sip slowly over a 5 to 10 minute period. May further dilute if GI adverse effects occur. potassium chloride (KLOR-CON M) extended release tablet 40 mEq(Linked Group 3) 40 mEq, Oral, PRN, Potassium Replacement, Starting on Sun08/27/20 at 1253, May give oral solution if patient unable to tolerate tablet. K Lab Replacement Action 3.1-3.5 40 mEq ORAL x 1 2.7-3.0 Refer to IV replacement orders < 2.7 Refer to IV replacement orders Recheck K level in AM. Not for use in patients with CrCl less than 30 mL/min. potassium chloride 10 mEq/100 mL IVPB (Peripheral Line)(Linked Group 3) 10 mEq, Intravenous, at 100 mL/hr, PRN, Potassium Replacement, Starting on Sun08/27/20 at 1253, K Lab Replacement Action 2.7-3.0 10 mEq IVPB x 6 doses (60 mEq Total) < 2.7 CALL PHYSICIAN and 10 mEq IVPB x 6 doses (60 mEq Total) Infuse at 10 mEq/hr Repeat Potassium lab 1 hour after final administration. Not for use in patients with CrCl less than 30 mL/min. sodium chloride flush 0.9 % injection 5-40 mL 5-40 mL, Intravenous, PRN, Line Care, After every IV line use, Starting on Sun08/27/20 at 1440, For Line Patency: Peripheral IV = 5 mL; Midline or Central Line = 10 mL/lumen. If following IV push medication, administer flush at same rate as the IV push. Flush volume is determined by type of infusion therapy being given. For non-viscous solutions use: Peripheral IV = 5 mL Midline or Central Line = 10 mL/lumen For viscous solutions (i.e. blood components, parenteral nutrition, contrast media, or after obtaining blood sample) use: Peripheral IV = 10 mL Midline or Central Line = 20 mL/lumen Linked Groups Order Group 1: acetaminophen (TYLENOL) tablet 650 mgJump to med 650 mg, Oral, EVERY 6 HOURS PRN, Pain Mild (1-3), Fever, For temp greater than 100.4 F (38 C), Starting on Sun08/27/20 at 1253
Maximum dose of acetaminophen is 4000 mg from all sources in 24 hours.
Or acetaminophen (TYLENOL) suppository 650 mgJump to med 650 mg, Rectal, EVERY 6 HOURS PRN, Pain Mild (1-3), Fever, For temp greater than 100.4 F (38 C), Starting on Sun08/27/20 at 1253
Administer if oral route cannot be used.
Group 2: ondansetron (ZOFRAN-ODT) disintegrating tablet 4 mgJump to med 4 mg, Oral, EVERY 8 HOURS PRN, Nausea, Vomiting, Starting on Sun08/27/20 at 1253 Or ondansetron (ZOFRAN) injection 4 mgJump to med 4 mg, Intravenous, EVERY 6 HOURS PRN, Nausea, Vomiting, Starting on Sun08/27/20 at 1253
Administer if oral route cannot be used.
Group 3: potassium chloride (KLOR-CON M) extended release tablet 40 mEqJump to med 40 mEq, Oral, PRN, Potassium Replacement, Starting on Sun08/27/20 at 1253
May give oral solution if patient unable to tolerate tablet. K Lab Replacement Action 3.1-3.5 40 mEq ORAL x 1 & nbsp; 2.7-3.0 Refer to IV replacement orders < 2.7 Refer to IV replacement orders Recheck K level in AM. Not for use in patients with CrCl less than 30 mL/min.
Or potassium bicarb-citric acid (EFFER-K) effervescent tablet 40 mEqJump to med 40 mEq, Oral, PRN, Per Potassium Replacement Protocol, Starting on Sun08/27/20 at 1253
Administer as alternative if patient unable to tolerate oral tablet. K Lab R [facility] ement Action 3.1 to 3.5 40 mEq ORAL x 1 Under 3.1 Refer to IV replacement protocol Recheck K level in AM. Protocol not for use in patients with CrCl less than 30 mL/min. Do not chew or crush. Dissolve flavored tablets completely in 3 to 4 ounces of cold water; unflavored tablets may be dissolved in 3 to 4 ounces of cold juice. Patient to sip slowly over a 5 to 10 minute period. May further dilute if GI adverse effects occur.
Or potassium chloride 10 mEq/100 mL IVPB (Peripheral Line)Jump to med 10 mEq, Intravenous, at 100 mL/hr, PRN, Potassium Replacement, Starting on Sun08/27/20 at 1253
K Lab Replacement Action 2.7-3.0 10 mEq IVPB x 6 doses (60 mEq Total) < 2.7 CALL PHYSICIAN and 10 mEq IVPB x 6 doses (60 mEq Total) Infuse at 10 mEq/hr Repeat Potassium lab 1 hour after final administration. Not for use in patients with CrCl less than 30 mL/min.
Scheduled Medication Order 11/02/2020 11/03/2020 11/04/2020 sodium chloride flush 0.9 % injection 10 mL 10 mL, IntraVENous, EVERY 12 HOURS SCHEDULED (2 times per day), First dose on Kelly 11/04/20 at 0900, Pre-op (day of surgery) 0900 (Due)2100 (Due) Continuous Medication Order 11/02/2020 11/03/2020 11/04/2020 lactated ringers infusion IntraVENous, at 125 mL/hr, CONTINUOUS, Starting on Kelly 11/04/20 at 0830, Pre-op (day of surgery) 0853 (New Bag - Prov ider: Anne Maldonado, REGINO)0949 (NoRateChange - Provider: Mabel Machado MD)1200 (Stopped - Provider: Faiza Hamilton RN) PRN Medication Order 11/02/2020 11/03/2020 11/04/2020 fentaNYL (SUBLIMAZE) injection 25 mcg 25 mcg, IntraVENous, EVERY 5 MIN PRN, Pain Moderate (4-6), Starting on Kelly 11/04/20 at 0845, For 4 doses, Phase I - Initial therapy for moderate pain., PACU only HYDROmorphone HCl PF (DILAUDID) injection 0.25 mg 0.25 mg, IntraVENous, EVERY 5 MIN PRN, Pain Severe (7-10), Starting on Kelly 11/04/20 at 0845, For 4 doses, Phase I - Initial therapy for severe pain., PACU only indomethacin (INDOCIN) 50 MG suppository (CANCELED) PRN, Starting on Kelly 11/04/20 at 0953, Intra-op 0953 (Given - Provid er: Keyonna Rich RN) iopamidol (ISOVUE-M 200) 41 % injection (CANCELED) PRN, Starting on Kelly 11/04/20 at 1031, Intra-op 1031 (Given - Provid er: Alexis Ramon MD) lidocaine PF 1 % injection 1 mL 1 mL, Intradermal, ONCE PRN, IV start, Starting on Kelly 11/04/20 at 0812, For 1 dose, Pre-op (day of surgery) ondansetron (ZOFRAN) injection 4 mg 4 mg, IntraVENous, ONCE PRN, Nausea, Starting on Kelly 11/04/20 at 0845, For 1 dose, Initial antiemetic therapy., PACU only sodium chloride flush 0.9 % injection 10 mL 10 mL, IntraVENous, PRN, Line Care, After every IV line use, Starting on Kelly 11/04/20 at 0812, Pre-op (day of surgery) No Frequency Medication Order 11/02/2020 11/03/2020 11/04/2020 ipratropium-albuterol (DUONEB) 0.5-2.5 (3) MG/3ML nebulizer solution (COMPLETED) Starting on Kelly 11/04/20 at 1053, For 1 dose, Hazel Shearer: sonu override 1110 (Given - Provid er: Faiza Hamilton RN) (unrecognized sect ion and content) No Status Records FoundNo Status Records FoundNo Status Records FoundNo Status Records FoundNo Status Records Found INFORMATION SOURCE (unrecogn ized section and content) DATE CREATED AUTHOR 09/11/2020 [facility] DATE CREATED AUTHOR AUTHOR'S ORGANIZ ATION 11/05/2020 [facility] DATE CREATED AUTHOR AUTHOR'S ORGANIZ ATION 01/05/2021 [facility] DATE CREATED AUTHOR AUTHOR'S ORGANIZ ATION 05/10/2023 [facility] DATE CREATED AUTHOR AUTHOR'S ORGANIZ ATION 03/28/2024 [facility] FOR RECORDS PERTAINING TO PATIENTS WHO ARE OR HAVE BEEN ENROLLED IN A CHEMICAL DEPENDENCY/SUBSTANCEABUSE PROGRAM, SOME INFORMATION MAY BE OMITTED. This clinical summary was aggregated from multiple sources. Caution should be exercised in using it in the provision of clinical care. This summary normalizes information from multiple sources, and as a consequence, information in this document may materially change the coding, format and clinical context of patient data. In addition, data may be omitted in some cases. CLINICAL DECISIONS SHOULD BE BASED ON THE PRIMARY CLINICAL RECORDS. [facility] [facility]. provides no warranty or guarantee of the accuracy or completeness of information in this document.
[2024-04-09 12:29] LABS: Anion Gap 12.2; BUN Creatinine Ratio 14.9; Calcium 8.3 mg/dL (8.5-10.1); Carbon Dioxide 26.1 mmol/L (21.0-32.0); Chloride 106 mmol/L (98-107); Estimated GFR (African America 47 (>=60 mL/min/1.73m^2); Estimated GFR (Non-African Ame 39 (>=60 mL/min/1.73m^2); Glucose 205 mg/dL (74-106); Potassium 4.3 mmol/L (3.5-5.1); Sodium 140 mmol/L (136-145)
== END 2024-04-09 12:09 | disposition home or self-care (01) ==
LOC: LAB 12:08
PROVIDERS: PCP Internal Medicine; Visit Provider Internal Medicine
DX: N17.8 Other acute kidney failure (principal); E87.1 Hypo-osmolality and hyponatremia
CPT/HCPCS: 36415; 80048